=== PATIENT | female | born 1940 | race Caucasian/White ===

== ENCOUNTER 2017-04-12 22:49 | Inpatient (IN) | payer OTHER ==
--- NOTE | 2017-04-12 23:14 | PDOC ---
Attending Attestation - Resident Resident Name: Rg Grubbs - ED Attending Attestation I have performed the following: I have examined & evaluated the patient, The case was reviewed & discussed with the resident, I agree w/resident's findings & plan, Exceptions are as noted - HPI HPI: 04/13/17 00:23 76 yo f presenting to the ER with a complaint of abdominal pain and nausea No fevers or chills - Physicial Exam PE: 04/13/17 00:23 On examination: Epigastric tenderness to palpation No involuntary guarding No rebound No lower abdominal tenderness to palpation - Medical Decision Making 76 yo F presenting to the ER with upper abdominal pain and nausea DD includes gastritis, gastroenteritis, Pancreatitis, retained stone Will do Labs CT IV hydration Pain management Anti emetics 04/13/17 00:23 Laboratory Tests 04/12/17 23:15 Urine Blood Negative Urine Nitrite Negative Ur Leukocyte Esterase 1+ H Urine RBC <1 Urine WBC 4 Ur Epithelial Cells Rare 04/13/17 00:24 04/13/17 01:16 Laboratory Tests 04/12/17 04/12/17 04/12/17 00:29 23:50 23:50 WBC 10.1 H Hgb 10.6 L Hct 33.3 Plt Count 293 Sodium 139 Potassium 4.7 Chloride 103 Carbon Dioxide 27 Anion Gap 9 BUN 34 H Creatinine 1.1 H Random Glucose 129 H Creatine Kinase 66 Troponin I < 0.02 04/13/17 03:21 Received call from imaging transcription coordinator Pt 1) SBO 2) Gastric inflammation 3) Low attenuation near spleen, ? splenic infarct vs fluid Admit to Dr Perez Add on PT/PTT and Type and Screen Pt refused NG Tube Heart Score/ECG Review #1 ECG reviewed & interpreted by me at: 23:33 General ECG Interpretation: Sinus Rhythm, Normal Rate, Normal Intervals, No acute ischemic changes
[2017-04-12] MEDS ORDERED: MAG HYDROX/AL HYDROX/SIMETH 355 ML ORAL.SUSP PO ONE (23:15)
[2017-04-12] MEDS ORDERED: ONDANSETRON 4 MG/2 ML VIAL IVPUSH ONE (23:15)
[2017-04-12] MEDS ORDERED: morphine CARPU-JECT 2 MG/1 ML DISP.SYRIN IVPUSH ONE (23:15)
[2017-04-12] MEDS ORDERED: morphine CARPU-JECT 2 MG/1 ML DISP.SYRIN ONE (23:26)
[2017-04-12 23:27] LABS: URINE APPEARANCE CLEAR; URINE BILIRUBIN NEGATIVE (NEGATIVE); URINE BLOOD NEGATIVE (NEGATIVE); URINE COLOR STRAW; URINE GLUCOSE (UA) 3+ (NEGATIVE); URINE KETONE NEGATIVE (NEGATIVE); URINE NITRITE NEGATIVE (NEGATIVE); URINE PROTEIN NEGATIVE (NEGATIVE); URINE UROBILINOGEN NEGATIVE mg/dL (0.2-1.0)
[2017-04-12] MEDS ORDERED: MAG HYDROX/AL HYDROX/SIMETH 30 ML UNIT-DOSE CUP ONE (23:27)
[2017-04-12] MEDS ORDERED: ONDANSETRON 4 MG/2 ML VIAL ONE (23:27)
--- NOTE | 2017-04-12 23:30 | PDOC ---
History of Present Illness - General Chief Complaint: Pain Stated Complaint: ABDOMINAL PAIN Time Seen by Provider: 04/12/17 22:52 History Source: Patient Exam Limitations: No Limitations - History of Present Illness Initial Comments: 04/12/17 23:19 Patient is a 76F with history of CHF, CT s/p stenting, and cholecystectomy here today complaining of epigastric abdominal pain radiating to the back for the past three hours. Patient is unsure of any inciting event and has never had pain like this before. She denies nausea, vomiting, fevers and chills. She denies chest pain and shortness of breath. Last bowel movement was 6 hours ago. She denies lower abdominal pain, pain with urination and urinary frequency. Past History - Past Medical History Allergies/Adverse Reactions: Allergies Allergy/AdvReac Type Severity Reaction Status Date / Time No Known Allergies Allergy Verified 04/12/17 23:21 Home Medications: Ambulatory Orders Aspirin [ASA -] 81 mg PO DAILY 04/12/17 Canagliflozin [Invokana] 300 mg PO DAILY 04/12/17 Docusate Sodium [Colace -] 100 mg PO BID 04/12/17 Esomeprazole Magnesium [Nexium 24Hr] 40 mg PO DAILY 04/12/17 Ferrous Sulfate [Feosol] 325 mg PO DAILY 04/12/17 Glipizide [Glucotrol -] 10 mg PO BID 04/12/17 Metformin HCl [Glucophage] 1,000 mg PO BID 04/12/17 Metoclopramide HCl [Reglan -] 10 mg PO DAILY 04/12/17 Metoprolol Succinate [Toprol Xl -] 25 mg PO DAILY 04/12/17 Nateglinide [Starlix (Nf)] 120 mg PO TID 04/12/17 Olmesartan Medoxomil [Benicar (Nf)] 20 mg PO DAILY 04/12/17 Pioglitazone HCl [Actos] 15 mg PO DAILY 04/12/17 Simvastatin [Zocor -] 40 mg PO HS 04/12/17 Solifenacin Succinate [Vesicare -] 10 mg PO DAILY 04/12/17 Review of Systems - Review of Systems Comments:: 04/12/17 23:30 GENERAL/CONSTITUTIONAL: No fever or chills. HEAD, EYES, EARS, NOSE AND THROAT: No change in vision. No sore throat. CARDIOVASCULAR: No chest pain or shortness of breath RESPIRATORY: No cough, wheezing, or hemoptysis. GASTROINTESTINAL: No nausea, vomiting, diarrhea or constipation. GENITOURINARY: No dysuria, frequency, or change in urination. SKIN: No rash NEUROLOGIC: No headache, loss of consciousness, or change in strength/sensation. HEMATOLOGIC/LYMPHATIC: No anemia, easy bleeding, or history of blood clots. ALLERGIC/IMMUNOLOGIC: No hives or skin allergy. *Physical Exam - Physical Exam Comments: 04/12/17 23:31 GENERAL: Awake, alert, and fully oriented, in no acute distress HEAD: No signs of trauma, normocephalic, atraumatic EYES: PERRLA, EOMI, sclera anicteric, conjunctiva clear ENT: Auricles normal inspection, hearing grossly normal, nares patent, oropharynx clear without exudates. Moist mucosa LUNGS: No distress, speaks full sentences, clear to auscultation bilaterally HEART: Regular rate and rhythm, normal S1 and S2, no murmurs, rubs or gallops, peripheral pulses normal and equal bilaterally. ABDOMEN: Epigastric tenderness. No guarding, no rebound. No masses EXTREMITIES: Normal inspection, Normal range of motion, no edema. No clubbing or cyanosis. NEUROLOGICAL: Cranial nerves II through XII grossly intact. Normal speech, no focal sensorimotor deficits SKIN: Warm, Dry, normal turgor, no rashes or lesions noted. ED Treatment Course - LABORATORY CBC & Chemistry Diagram: 04/12/17 23:50 04/12/17 23:50 Medical Decision Making - Medical Decision Making 04/12/17 23:32 Patient is a 76F with history of CHF, CT s/p stenting about 10 years ago, DM, and cholecystectomy here today complaining of upper epigastric abdominal pain radiating to the back. Vital signs stable. Differential diagnosis includes, but is not limited to: pancreatitis, gastritis, and ACS. Will evaluate with abdominal lab workup, trop, ekg, and ct abdomen. Treated with maalox, zofran and 2mg morphine. 04/13/17 01:53 Laboratory Tests 04/12/17 04/12/17 04/12/17 00:29 23:15 23:50 WBC 10.1 H Hgb 10.6 L Hct 33.3 Plt Count 293 Sodium Potassium Chloride Carbon Dioxide Anion Gap BUN Creatinine Calcium Total Bilirubin AST ALT Alkaline Phosphatase Creatine Kinase 66 Troponin I < 0.02 Total Protein Albumin Lipase Ur Leukocyte Esterase 1+ H Urine RBC <1 Urine WBC 4 04/12/17 23:50 WBC Hgb Hct Plt Count Sodium 139 Potassium 4.7 Chloride 103 Carbon Dioxide 27 Anion Gap 9 BUN 34 H Creatinine 1.1 H Calcium 9.4 Total Bilirubin 0.4 AST 16 ALT 18 Alkaline Phosphatase 48 Creatine Kinase Troponin I Total Protein 7.4 Albumin 4.2 Lipase 96 Ur Leukocyte Esterase Urine RBC Urine WBC UA neg, lipase neg, trop neg, Cr 1.1, liver enzymes normal, no gap EKG shows normal sinus rhythm, normal rate, normal axis, no ST elevations. No significant t-wave inversions. 04/13/17 03:28 CT Abdomen - Mid small bowel obstruction secondary to inflamed small bowel loop of uncertain cause, although a mass is not completely excluded. - Possible antral gastritis can be further evaluated with endoscopy. - Low attenuation adjacent to the spleen could represent a small amount of pericapsular fluid, but a small splenic infarct is not excluded. - Prominent biliary duct dilation status post cholecystectomy may be secondary to postoperative biliary stricture and may be followed up with MRCP/ERCP as clinically warranted 04/13/17 03:[address] Perez, accepted admission. Requested consult to Dr Christine. *DC/Admit/Observation/Transfer Diagnosis at time of Disposition: Small bowel obstruction - Discharge Dispostion Condition at time of disposition: Fair Admit: Yes
[2017-04-12 23:31] LABS: URINE LEUK ESTERASE 1+ (NEGATIVE)
[2017-04-12 23:37] LABS: URINE RBC <1 /hpf (0-3); URINE WBC 4 /hpf (3-5)
[2017-04-12 23:59] VITALS: BMI 30.2
[2017-04-13 00:36] LABS: BASOPHIL 0.4 % (0-2.0); EOSINOPHIL 0.7 % (0-4.5); MCH 26.3 pg (25.7-33.7); MCHC 31.7 g/dl (32.0-36.0); MEAN PLT VOLUME 8.6 fl (7.5-11.1); NEUTROPHILS 82.4 % (42.8-82.8); PLATELET COUNT 293 K/MM3 (134-434); WHITE BLOOD COUNT 10.1 K/mm3 (4.0-10.0)
[2017-04-13 01:02] LABS: CPK 66 IU/L (26-192); TROPONIN I < 0.02 ng/ml (0.00-0.05)
[2017-04-13 01:02] LABS: ALBUMIN 4.2 g/dl (3.4-5.0); ALK PHOS 48 U/L (45-117); ANION GAP 9 (8-16); BILIRUBIN,TOTAL 0.4 mg/dL (0.2-1.0); CALCIUM 9.4 mg/dL (8.5-10.1); CO2 27 mmol/L (21-32); CREATININE 1.1 mg/dL (0.55-1.02); GLUCOSE,RANDOM 129 mg/dL (74-106); SGOT/AST 16 U/L (15-37); SGPT/ALT 18 U/L (12-78); TOT PROT 7.4 g/dl (6.4-8.2)
[2017-04-13 02:36] LABS: ANISOCYTOSIS 3+; MACROCYTOSIS 2+; MICROCYTOSIS 1+; PLATELET ESTIMATE ADEQUATE (NORMAL)
[2017-04-13] MEDS ORDERED: SODIUM CHLORIDE 500 ML IV STA (03:44)
[2017-04-13] MEDS ORDERED: morphine CARPU-JECT 2 MG/1 ML DISP.SYRIN IVPUSH ONE (03:58)
[2017-04-13] MEDS ORDERED: morphine CARPU-JECT 2 MG/1 ML DISP.SYRIN ONE (04:00)
[2017-04-13 04:28] LABS: INR 1.05 (0.82-1.09); PROTHROMBIN TIME (PATIENT) 11.6 SEC (9.98-11.88)
[2017-04-13] MEDS ORDERED: ONDANSETRON 4 MG/2 ML VIAL IVPB PRN (08:44)
[2017-04-13] MEDS ORDERED: morphine CARPU-JECT 2 MG/1 ML DISP.SYRIN IVPUSH PRN (08:44)
[2017-04-13] MEDS ORDERED: SODIUM CHLORIDE 1,000 ML IV SCH ×2 (08:45→11:43)
[2017-04-13 10:14] LABS: MCH 25.8 pg (25.7-33.7); MCHC 31.2 g/dl (32.0-36.0); MEAN CELL VOLUME 82.6 fl (80-96); MEAN PLT VOLUME 7.9 fl (7.5-11.1); PLATELET COUNT 290 K/MM3 (134-434); WHITE BLOOD COUNT 9.9 K/mm3 (4.0-10.0)
[2017-04-13 10:44] LABS: ALBUMIN 3.7 g/dl (3.4-5.0); ANION GAP 8 (8-16); BILIRUBIN,TOTAL 0.4 mg/dL (0.2-1.0); CALCIUM 9.2 mg/dL (8.5-10.1); CO2 28 mmol/L (21-32); CREATININE 1.1 mg/dL (0.55-1.02); GLUCOSE,RANDOM 168 mg/dL (74-106); SGOT/AST 14 U/L (15-37); SGPT/ALT 18 U/L (12-78); TOT PROT 6.7 g/dl (6.4-8.2)
[2017-04-13 10:45] LABS: ALK PHOS 48 U/L (45-117)
--- NOTE | 2017-04-13 11:37 | HP ---
Admitting History and Physical - Primary Care Physician PCP: Duc Perez - Admission Chief Complaint: epigasatric pain History of Present Illness: Pt developed epigastric pain ( no specific trigger) yesterday early afternoon, came to ER later, found to have SBO and was admitted. Pt w/o N, V yesterday; last BM was yesterday morning; pt w/o SOB, CP, palp, dizziness associated with epigastric pain. History Source: Patient Limitations to Obtaining History: No Limitations - Past Medical History Cardiovascular: Yes: CAD Pulmonary: Yes: COPD Gastrointestinal: Yes: Hiatal Hernia ...: No Endocrine: Yes: Diabetes Mellitus - Past Surgical History Past Surgical History: Yes: Cholecystectomy - Smoking History Smoking history: Never smoked Have you smoked in the past 12 months: No - Alcohol/Substance Use Hx Alcohol Use: No Home Medications - Allergies Allergies/Adverse Reactions: Allergies Allergy/AdvReac Type Severity Reaction Status Date / Time No Known Allergies Allergy Verified 04/12/17 23:21 - Home Medications Home Medications: Ambulatory Orders Aspirin [ASA -] 81 mg PO DAILY 04/12/17 Canagliflozin [Invokana] 300 mg PO DAILY 04/12/17 Docusate Sodium [Colace -] 100 mg PO BID 04/12/17 Esomeprazole Magnesium [Nexium 24Hr] 40 mg PO DAILY 04/12/17 Ferrous Sulfate [Feosol] 325 mg PO DAILY 04/12/17 Glipizide [Glucotrol -] 10 mg PO BID 04/12/17 Metformin HCl [Glucophage] 1,000 mg PO BID 04/12/17 Metoclopramide HCl [Reglan -] 10 mg PO DAILY 04/12/17 Metoprolol Succinate [Toprol Xl -] 25 mg PO DAILY 04/12/17 Nateglinide [Starlix (Nf)] 120 mg PO TID 04/12/17 Olmesartan Medoxomil [Benicar (Nf)] 20 mg PO DAILY 04/12/17 Pioglitazone HCl [Actos] 15 mg PO DAILY 04/12/17 Simvastatin [Zocor -] 40 mg PO HS 04/12/17 Solifenacin Succinate [Vesicare -] 10 mg PO DAILY 04/12/17 Review of Systems - Review of Systems Constitutional: denies: Chills, Fever Eyes: denies: Blind Spots, Blurred Vision, Double Vision HENT: denies: Difficult Swallowing, Ear Discharge, Nasal Congestion, Throat Pain Neck: denies: Pain on Movement, Stiffness Cardiovascular: denies: Chest Pain, Edema, Palpitations Respiratory: denies: Cough, SOB, Wheezing Gastrointestinal: denies: Constipation, Diarrhea, Nausea, Vomiting Genitourinary: denies: Burning, Discharge, Dysuria Musculoskeletal: denies: Back Pain, Extremity Pain, Muscle Pain Integumentary: denies: Bruising, Rash Neurological: denies: Change in LOC, Change in Speech, Confusion, Numbness, Parasthesia Endocrine: denies: Excessive Sweating, Intolerance to Cold Hematology/Lymphatic: denies: Easily Bruised, Excessive Bleeding Psychiatric: denies: Anxiety, Depression Physical Examination Vital Signs: Vital Signs Temperature 98.8 F 04/13/17 10:18 Pulse Rate 108 H 04/13/17 10:18 Respiratory Rate 20 04/13/17 10:18 Blood Pressure 118/54 04/13/17 10:18 O2 Sat by Pulse Oximetry (%) 95 04/13/17 05:33 Constitutional: Yes: No Distress, Calm Eyes: Yes: Conjunctiva Clear, EOM Intact HENT: No: Epistaxis, Pharyngeal Erythema, Rhinnorhea Neck: Yes: Trachea Midline. No: Lymphadenopathy Cardiovascular: Yes: Regular Rate and Rhythm, S1, S2 Respiratory: Yes: Regular, Rhonchi (scattered), Other (BS, at baseline) ...Rectal Exam: Yes: Deferred Renal/: No: CVA Tenderness - Left, CVA Tenderness - Right Breast(s): Yes: Other (deferred) Musculoskeletal: No: Back Pain, Joint Stiffness, Joint Swelling Edema: No Integumentary: No: Erythema, Rash Neurological: Yes: Alert, Oriented, Other (symmeteric motor and sensory in UE/ LE/ face) Psychiatric: Yes: Alert, Oriented Labs: CBC, BMP 04/13/17 10:05 04/13/17 10:05 Imaging - Results Cat Scan: Report Reviewed Problem List - Problems (1) SBO (small bowel obstruction) Code(s): K56.69 - OTHER INTESTINAL OBSTRUCTION (2) COPD (chronic obstructive pulmonary disease) Code(s): J44.9 - CHRONIC OBSTRUCTIVE PULMONARY DISEASE, UNSPECIFIED (3) CAD (coronary artery disease) Code(s): I25.10 - ATHSCL HEART DISEASE OF [place] CORONARY ARTERY W/O ANG PCTRS (4) Diabetes mellitus Code(s): E11.9 - TYPE 2 DIABETES MELLITUS WITHOUT COMPLICATIONS (5) Hiatal hernia Code(s): K44.9 - DIAPHRAGMATIC HERNIA WITHOUT OBSTRUCTION OR GANGRENE Assessment/Plan elevated lactic acid NPO except meds no oral DM meds SS wiith coverage SX, GI , Cardio consult. GI, DVT proph AM labs
[2017-04-13] MEDS ORDERED: SODIUM CHLORIDE 100 ML IVPB ONE (12:25)
[2017-04-13] MEDS ORDERED: PANTOPRAZOLE SODIUM 40 MG VIAL ONE (12:25)
[2017-04-13] MEDS: INSULIN SLIDING SCALE (NOVOLOG) 1 VIAL SQ SCH ×3 (12:30→21:47)
[2017-04-13] MEDS: METOPROLOL SUCCINATE 25 MG TAB.SR.24H (FP) PO SCH (12:30)
[2017-04-13] MEDS: ASPIRIN 81 MG CHEWABLE TABLETS PO SCH (12:30)
[2017-04-13] MEDS: PANTOPRAZOLE SODIUM 40 MG in SODIUM CHLORIDE 100 ML IVPB SCH (12:32)
--- NOTE | 2017-04-13 13:21 | EKG ---
Test Reason : Blood Pressure : / mmHG Vent. Rate : 086 BPM Atrial Rate : 086 BPM P-R Int : 186 ms QRS Dur : 072 ms QT Int : 368 ms P-R-T Axes : 057 021 054 degrees QTc Int : 440 ms NORMAL SINUS RHYTHM NORMAL ECG WHEN COMPARED WITH ECG OF 22-JAN-2011 12:15, NO SIGNIFICANT CHANGE WAS FOUND CLINICAL CORRELATION IS RECOMMENDED Confirmed by NEIL KRAMER MD ([id number]) on 04/13/2017 1:21:06 PM Referred By: Confirmed By:NEIL KRAMER MD
--- NOTE | 2017-04-13 13:38 | CON.GI ---
Consult Consult Specialty:: Gastroenterology Referred by:: Dr. Perez Reason for Consultation:: Abdominal pain - History of Present Illness Chief Complaint: Epigastric pain radiating into her back. History of Present Illness: 76F developed sharp constant epigastric pain after eating lunch yesterday that radiated bilaterally into her back. She denies vomiting. She had a BM yesterday morning but not since then. She has chronic constipation. CT reveals an SBO. She is s/p combined cholecystectomy /appendectomy ( but CT identifies a normal appendix) and a BTL ( when she was told the appendix was absent). She had a colonoscopy at [facility] with Dr Feng and later in [place] and believes both were normal but both were greater than 10 years ago. Also had a remote EGD at [facility] which she believes was normal. She is on Nexium chronically however for a hiatal hernia. Her lactic acid level was 3 in the ER. Her pain has resolved. 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 (year[place] age 22 History of Recent Travel: No Home Medications - Allergies Allergies/Adverse Reactions: Allergies Allergy/AdvReac Type Severity Reaction Status Date / Time No Known Allergies Allergy Verified 04/12/17 23:21 - Home Medications Home Medications: Ambulatory Orders Aspirin [ASA -] 81 mg PO DAILY 04/12/17 Canagliflozin [Invokana] 300 mg PO DAILY 04/12/17 Docusate Sodium [Colace -] 100 mg PO BID 04/12/17 Esomeprazole Magnesium [Nexium 24Hr] 40 mg PO DAILY 04/12/17 Ferrous Sulfate [Feosol] 325 mg PO DAILY 04/12/17 Glipizide [Glucotrol -] 10 mg PO BID 04/12/17 Metformin HCl [Glucophage] 1,000 mg PO BID 04/12/17 Metoclopramide HCl [Reglan -] 10 mg PO DAILY 04/12/17 Metoprolol Succinate [Toprol Xl -] 25 mg PO DAILY 04/12/17 Nateglinide [Starlix (Nf)] 120 mg PO TID 04/12/17 Olmesartan Medoxomil [Benicar (Nf)] 20 mg PO DAILY 04/12/17 Pioglitazone HCl [Actos] 15 mg PO DAILY 04/12/17 Simvastatin [Zocor -] 40 mg PO HS 04/12/17 Solifenacin Succinate [Vesicare -] 10 mg PO DAILY 04/12/17 Family Disease History - Family Disease History Family Disease History: Diabetes: Mother ( unknown cause), Sister, Son (CAD with stenting), Heart Disease: Son, CA: Daughter ( lung cancer), Other: Father ( in his 40s of bleeding ulcer) Review of Systems - Review of Systems Constitutional: reports: No Symptoms Eyes: reports: No Symptoms HENT: reports: No Symptoms Neck: reports: No Symptoms Cardiovascular: reports: No Symptoms Respiratory: reports: No Symptoms Gastrointestinal: reports: Abdominal Pain, Constipation Musculoskeletal: reports: Joint Pain Neurological: reports: No Symptoms Physical Exam-GI Vital Signs: Vital Signs Temperature 98.8 F 04/13/17 10:18 Pulse Rate 108 H 04/13/17 10:18 Respiratory Rate 20 04/13/17 10:18 Blood Pressure 118/54 04/13/17 10:18 O2 Sat by Pulse Oximetry (%) 95 04/13/17 05:33 CBC,CMP WBC 9.9 K/mm3 (4.0-10.0) 04/13/17 10:05 RBC 4.24 M/mm3 (3.60-5.2) 04/13/17 10:05 Hgb 10.9 GM/dL (10.7-15.3) 04/13/17 10:05 Hct 35.0 % (32.4-45.2) 04/13/17 10:05 MCV 82.6 fl (80-96) 04/13/17 10:05 MCH 25.8 pg (25.7-33.7) 04/13/17 10:05 MCHC 31.2 g/dl (32.0-36.0) L 04/13/17 10:05 RDW 23.0 % (11.6-15.6) H 04/13/17 10:05 Plt Count 290 K/MM3 (134-434) 04/13/17 10:05 MPV 7.9 fl (7.5-11.1) 04/13/17 10:05 Neutrophils % 82.4 % (42.8-82.8) 04/12/17 23:50 Lymphocytes % 10.3 % (8-40) 04/12/17 23:50 Monocytes % 6.2 % (3.8-10.2) 04/12/17 23:50 Eosinophils % 0.7 % (0-4.5) 04/12/17 23:50 Basophils % 0.4 % (0-2.0) 04/12/17 23:50 Platelet Estimate Adequate (NORMAL) 04/12/17 23:50 Platelet Comment Few large plts 04/12/17 23:50 Anisocytosis 3+ 04/12/17 23:50 Microcytosis 1+ 04/12/17 23:50 Macrocytosis 2+ 04/12/17 23:50 Sodium 139 mmol/L (136-145) 04/13/17 10:05 Potassium 4.9 mmol/L (3.5-5.1) 04/13/17 10:05 Chloride 103 mmol/L (98-107) 04/13/17 10:05 Carbon Dioxide 28 mmol/L (21-32) 04/13/17 10:05 Anion Gap 8 (8-16) 04/13/17 10:05 BUN 28 mg/dL (7-18) H 04/13/17 10:05 Creatinine 1.1 mg/dL (0.55-1.02) H 04/13/17 10:05 Creat Clearance w eGFR 48.29 (>60) 04/13/17 10:05 POC Glucometer 143 UNITS (()) 04/13/17 12:28 Random Glucose 168 mg/dL (74-106) H D 04/13/17 10:05 Lactic Acid 0.9 mmol/L (0.4-2.0) 04/13/17 10:05 Calcium 9.2 mg/dL (8.5-10.1) 04/13/17 10:05 Total Bilirubin 0.4 mg/dL (0.2-1.0) 04/13/17 10:05 AST 14 U/L (15-37) L 04/13/17 10:05 ALT 18 U/L (12-78) 04/13/17 10:05 Alkaline Phosphatase 48 U/L (45-117) 04/13/17 10:05 Creatine Kinase 66 IU/L (26-192) 04/12/17 00:29 Troponin I < 0.02 ng/ml (0.00-0.05) 04/12/17 00:29 Total Protein 6.7 g/dl (6.4-8.2) 04/13/17 10:05 Albumin 3.7 g/dl (3.4-5.0) 04/13/17 10:05 Lipase 96 U/L (73-393) 04/12/17 23:50 Current Medications Generic Name Dose Route Start Last Admin Trade Name Gonzaloq PRN Reason Stop Dose Admin Aspirin 81 mg 04/13/17 10:00 04/13/17 12:30 Asa - PO 81 mg DAILY STEPH Administration Heparin Sodium (Porcine) 5,000 unit 04/13/17 22:00 Heparin - SQ BID STEPH Pantoprazole Sodium 40 mg/ 100 mls @ 200 mls/hr 04/13/17 12:30 04/13/17 12:32 Sodium Chloride IVPB 200 mls/hr DAILY STEPH Administration Sodium Chloride 1,000 mls @ 100 mls/hr 04/13/17 11:43 04/13/17 12:30 Normal Saline - IV 100 mls/hr ASDIR STEPH Administration Insulin Aspart 1 vial 04/13/17 11:00 04/13/17 12:30 Novolog Vial Sliding Scale - SQ Not Given ACHS [facility] Protocol Metoprolol Succinate 25 mg 04/13/17 10:00 04/13/17 12:30 Toprol Xl - PO 25 mg DAILY STEPH Administration Morphine Sulfate 2 mg 04/13/17 08:44 Morphine Injection - IVPUSH Q6H PRN PAIN Ondansetron HCl 4 mg 04/13/17 08:44 Zofran Injection IVPB Q8H PRN NAUSEA Laboratory Tests 04/12/17 04/13/17 04/13/17 23:50 03:45 10:05 WBC 10.1 H 9.9 Hgb 10.9 Lactic Acid 3.0 H* Total Bilirubin AST ALT Alkaline Phosphatase Albumin 04/13/17 10:05 WBC Hgb Lactic Acid Total Bilirubin 0.4 AST 14 L ALT 18 Alkaline Phosphatase 48 Albumin 3.7 Constitutional: Yes: No Distress Eyes: Yes: Conjunctiva Clear HENT: Yes: Normocephalic Neck: Yes: Supple Cardiovascular: Yes: Regular Rate and Rhythm Respiratory: Yes: CTA Bilaterally Gastrointestinal Inspection: Yes: Scars (healed oblique RUQ and laparoscopic incisions) ...Auscultate: Yes: Hyperactive Bowel Sounds ...Palpate: Yes: Soft, Other (nontender) ...Percussion: Yes: Tympanitic ...Rectal Exam: Yes: Guaiac Negative, Sphincter Tone Normal, Other (no masses) Extremities: Yes: Other (long RUE surgical scar) Labs: CBC, BMP 04/13/17 10:05 04/13/17 10:05 INR, PTT INR 1.05 (0.82-1.09) 04/13/17 03:45 Imaging - Results Cat Scan: Image Reviewed (reveals small bowel obstruction, dilated CBD and hepatic ducts ( 1.8-1.9cm) , subcapsular splenic collection, ? 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 It may be resolving as her pain has resolved and no vomiting has ensued. I will order an FUA. If pain or vomiting ensue will need NG tube. Surgical consultation is pending. Her lactic acidosis raises the possibility of mesenteric ischemia but her pain resolution argues against this. I will order a repeat lactic acid level and if elevated an ABG as the narcotics could be masking symptoms. Should be kept NPO until seen by the surgeon. Will also get an MRCP to evaluate her bile duct dilation. Her LFTs argue against an obstruction. 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 Her family was present for the discussion.
--- NOTE | 2017-04-13 18:51 | CONS ---
DATE OF CONSULTATION: 04/13/2017 TIME OF CONSULTATION: 5:06 p.m. CONSULTATION REQUESTED BY: Duc Perez MD CHIEF COMPLAINT: 1. Epigastric and paraumbilical pain radiating to the back. 2. Mild nausea. HISTORY OF PRESENT ILLNESS: A 76-year-old [place] female with history of hypertension, zmo-zjabild-cufffacdi diabetes mellitus, coronary artery disease, angina pectoris, hypercholesterolemia, status post cerebrovascular accident without residual sequelae, history of hypercholesterolemia, bronchial asthma, COPD, and history of glaucoma. Patient was admitted with history of sudden onset of paraumbilical pain radiating to the epigastric area. Pain was severe, non-colicky, and radiated to the back. There was no history of diarrhea, melena, or hematemesis. She did notice mild chills but there was no history of fever, and as the pain persisted, she decided to come to the hospital. Patient denies having any recent chest pain or discomfort, either at rest or with exertion. History of exertional dyspnea, especially walking on an incline, and she avoids stairs. No history of paroxysmal nocturnal dyspnea or orthopnea. No history of recent cough or expectoration. No history of recent exacerbation of asthma. No history of palpitations, lightheadedness, dizziness, presyncope, or syncope reported. No history of pedal edema. PAST HISTORY: 1. As mentioned in the history of present illness. 2. History of hiatus hernia. SURGICAL HISTORY: 1. History of surgery on the left breast for a fistula. 2. Status post cholecystectomy. 3. Status post bilateral cataract extraction. SOCIAL HISTORY: History of cigarette smoking starting at age 15 and stopping 6 years ago. Used to smoke 2 to 3 packets of cigarettes per day. No history of alcohol usage. She is , had 2 sons and 3 daughters. One of the sons at age 28 while undergoing coronary artery bypass surgery. One of the daughters in her early 40s due to carcinoma of the lung; she was a smoker. Her other son is a diabetic and has had coronary artery bypass grafting. The other daughter is a diabetic. FAMILY HISTORY: Father in his late 40s because of bleeding peptic ulcer disease. Mother in her 60s; she was a diabetic and had coronary artery disease. Has 1 sister, who is diabetic. ALLERGIES: None reported. MEDICATIONS PRIOR TO ADMISSION DOCUMENTED IN CHART: 1. Toprol XL 25 mg p.o. daily. 2. Aspirin 81 mg p.o. daily. 3. Invokana 300 mg p.o. before breakfast. 4. Nexium 40 mg p.o. daily. 5. Glipizide 10 mg p.o. b.i.d. before meals. 6. Metformin 1000 mg p.o. b.i.d. before meals. 7. Reglan 10 mg p.o. daily. 8. Starlix 120 mg p.o. t.i.d. before meals. 9. Benicar 20 mg p.o. daily. 10. Actos 15 mg p.o. daily. 11. Simvastatin 40 mg p.o. daily. 12. Travatan ophthalmic solution 1 drop in each eye daily. 13. Lumigan 1 drop in each eye daily. 14. Simbrinza 1 drop in each eye t.i.d. REVIEW OF SYSTEMS: Constitutional: No history of fever. History of mild chills. No history of night sweats. No history of unintentional weight loss. HEENT: No history of recent headaches, diplopia, or blurred vision reported. No history of epistaxis, hoarseness, tinnitus or deafness. Cardiovascular: See history of present illness. No history of recent chest pain or discomfort. Respiratory: See history of present illness. Denies any recent cough, expectoration, or wheezing. No history of hemoptysis. Denies having tuberculosis. Gastrointestinal: See history of present illness. No history of change in bowel habits, vomiting, melena, or hematemesis. Neurological: No history of lightheadedness, dizziness, presyncope or syncope. No history of seizures or focal weakness. See history of present illness. Endocrine: See history of present illness. No history of intolerance to cold or warm weather. Musculoskeletal: History of arthralgias, status post left knee replacement. No history of myalgias reported. Urinary: History of urgency. No history of hematuria or urinary tract infection. Hematological: No history of bleeding, anemia, or ecchymosis. Lymphatics: No history of lymphadenopathy. EXAMINATION: General: A 76-year-old female who is in no acute distress. No pallor, cyanosis, clubbing, or jaundice. Vital Signs: Weight 165 pounds. Blood pressure 110/57 mmHg. Pulse 97 beats per minute and regular. Temperature 98.4 degrees Fahrenheit. Neck: Supple. No jugular venous distention. Carotids were 2+. Upstrokes were normal. There was right carotid bruit heard and there was also a slight left carotid bruit. No thyromegaly was present. No submandibular or supraclavicular nodes were felt. Heart: PMI within the 5th intercostal space. No heaves or thrills. S1 and S2 were normal. Ejection systolic murmur grade 2/6 was heard at the 2nd right intercostal space, and again early systole murmur was also heard along the left sternal border. No diastolic murmur or gallops were heard. Lungs: Clear on auscultation. Chest: Normal AP diameter. Expansion was symmetrical. Abdomen: Soft, nontender. No rebound tenderness was elicited. No hepatosplenomegaly or palpable masses were felt. Bowel sounds were heard. No bruits were present. Extremities: No calf tenderness or dependent edema. There is a surgical scar over the left knee. Femoral pulses were 2+. Dorsalis pedis and posterior tibial pulses were weak. LABORATORY DATA: April 12, 2017, CBC: WBC count was 10,100, hemoglobin was 10.6 g, platelet count was 293,000, platelets reported to be large. There was both anisocytosis, microcytosis, and macrocytosis. Repeat CBC on April 13: WBC count 9900, hemoglobin 10.9 g. Differential was not done. Chemistry, April 13, 2017: Sodium 139, potassium 4.9, chloride 103, CO2 28 mmol per liter. BUN was 28, creatinine was 1.1 mg/dL. Glucose was 151, 146, and 43. Lactic acid was 3.0; the repeat was 0.9. Total bilirubin was 0.9, AST was 14, ALT was 18, alkaline phosphatase of 48. CK was 66, troponin was less than 0.02. Lipase was 96. ECG revealed normal sinus rhythm, tracing was within normal limits. When compared with ECG of 22 January 2011, no significant changes were seen. CT scan of the abdomen and pelvis: There are mild COPD changes in the included portion of the lower lungs with mild atelectatic changes in the right middle lobe, medially as well as in the right lower lobe laterally. IMPRESSION: 1. Partially-distended stomach, limiting its evaluation with suggestion of thickening of the gastric body wall, for which further evaluation is recommended. 2. Status post cholecystectomy with moderate to mild dilatation of the intrahepatic bile ducts and dilatation of the common hepatic and common bile duct, measuring 1.9 cm down to its intrapancreatic portion. Further evaluation with MRCP is needed. 3. Likely small subcapsular fluid seen along the superior/medial margin of the spleen. Cannot rule out a small infarct. 4. Mild to moderate right renal hydronephrosis and bilateral extrarenal pelvis. 5. Mild small-bowel obstruction, likely on the basis of a short segment of thickened small bowel loop with fecalization seen in the mid to lower abdomen. Rule out enteritis or infiltrative process. Ischemic bowel disease is less likely. Normal enhancement of the superior mesenteric artery and vein. X-ray chest is not available. IMPRESSION: 1. Abdominal pain, etiology to be determined. a. Dilated common and intrahepatic bile duct. Possibility of gallstones needs to be excluded. b. Possibility of ductal carcinoma needs to be excluded. 2. Hypertension, hypertensive cardiovascular disease, currently normotensive. 3. Coronary artery disease, angina pectoris currently stable. 4. Hypercholesterolemia. 5. History of bronchial asthma. 6. Glaucoma. 7. Anemia, etiology to be determined. Possibly related to thalassemia minor. 8. Carotid bruits. 9. Status post cerebrovascular accident without residual sequelae. 10. Kip-mdcryht-cvphafhsu diabetes mellitus. 11. Probable neurogenic bladder. 12. History of hydronephrosis. RECOMMENDATIONS: 1. Carotid ultrasound. 2. Continue current medications. 3. Resume simvastatin. 4. Lipid profile. 5. Followup electrocardiogram. 6. Evaluation of anemia. PROGNOSIS: Guarded. Thank you for your referral. Yours sincerely, NEIL KRAMER M.D. [id number]
[2017-04-13] MEDS: HEPARIN NA (PORCINE) 5,000 UNITS/ML 1ML VIAL SQ SCH (21:47)
[2017-04-14] MEDS: SODIUM CHLORIDE 1,000 ML IV SCH ×2 (06:37→06:42)
[2017-04-14] MEDS: INSULIN SLIDING SCALE (NOVOLOG) 1 VIAL SQ SCH ×4 (06:44→22:42)
[2017-04-14 07:17] LABS: FIBROSURE ASH COMMENT SEE FILE COPY
[2017-04-14 07:23] LABS: MCH 26.2 pg (25.7-33.7); MCHC 31.2 g/dl (32.0-36.0); MEAN CELL VOLUME 83.7 fl (80-96); MEAN PLT VOLUME 8.2 fl (7.5-11.1); PLATELET COUNT 282 K/MM3 (134-434); RDW 22.7 % (11.6-15.6)
[2017-04-14 07:49] LABS: C-REACTIVE PROTEIN 7.8 MG/DL (0.00-0.3)
[2017-04-14 08:00] LABS: ALBUMIN 3.3 g/dl (3.4-5.0); ALK PHOS 45 U/L (45-117); ANION GAP 8 (8-16); BILIRUBIN,TOTAL 0.4 mg/dL (0.2-1.0); CALCIUM 8.7 mg/dL (8.5-10.1); CO2 25 mmol/L (21-32); GLUCOSE,RANDOM 105 mg/dL (74-106); SGOT/AST 13 U/L (15-37); SGPT/ALT 17 U/L (12-78); TOT PROT 6.3 g/dl (6.4-8.2)
[2017-04-14] MEDS ORDERED: PANTOPRAZOLE SODIUM 40 MG VIAL ONE (10:04)
[2017-04-14] MEDS ORDERED: SODIUM CHLORIDE 100 ML IVPB ONE (10:04)
[2017-04-14] MEDS: METOPROLOL SUCCINATE 25 MG TAB.SR.24H (FP) PO SCH (10:29)
[2017-04-14] MEDS: PANTOPRAZOLE SODIUM 40 MG in SODIUM CHLORIDE 100 ML IVPB SCH (10:29)
[2017-04-14] MEDS: ASPIRIN 81 MG CHEWABLE TABLETS PO SCH (10:29)
[2017-04-14] MEDS: HEPARIN NA (PORCINE) 5,000 UNITS/ML 1ML VIAL SQ SCH ×2 (10:30→22:41)
[2017-04-14] MEDS ORDERED: INSULIN (NOVOLOG) ASPART 100 UNITS/ML 10ML VIAL ONE ×2 (11:12→20:31)
--- NOTE | 2017-04-14 12:47 | PN ---
Progress Note, Physician History of Present Illness: Pt w/o abd pain, N, V; she is asking to eat. Pt w/o CP, palp, SOB. Pt with hip pain, asked for pain medication. - Current Medication List Current Medications: Active Medications Aspirin (Asa -) 81 mg PO DAILY [facility] Last Admin: 04/14/17 10:29 Dose: 81 mg Heparin Sodium (Porcine) (Heparin -) 5,000 unit SQ BID [facility] Last Admin: 04/14/17 10:30 Dose: 5,000 unit Pantoprazole Sodium 40 mg/ (Sodium Chloride) 100 mls @ 200 mls/hr IVPB DAILY [facility] Last Admin: 04/14/17 10:29 Dose: 200 mls/hr Sodium Chloride (Normal Saline -) 1,000 mls @ 60 mls/hr IV ASDIR [facility] Last Admin: 04/14/17 06:42 Dose: Not Given Insulin Aspart (Novolog Vial Sliding Scale -) 1 vial SQ ACHS [facility] PRN Reason: Protocol Last Admin: 04/14/17 11:25 Dose: Not Given Metoprolol Succinate (Toprol Xl -) 25 mg PO DAILY [facility] Last Admin: 04/14/17 10:29 Dose: 25 mg Morphine Sulfate (Morphine Injection -) 2 mg IVPUSH Q6H PRN PRN Reason: PAIN Last Admin: 04/14/17 11:20 Dose: 2 mg Ondansetron HCl (Zofran Injection) 4 mg IVPB Q8H PRN PRN Reason: NAUSEA - Objective Vital Signs: Vital Signs Temperature 98.0 F 04/14/17 10:00 Pulse Rate 91 H 04/14/17 10:00 Respiratory Rate 18 04/14/17 10:00 Blood Pressure 130/6 04/14/17 10:00 O2 Sat by Pulse Oximetry (%) 90 L 04/14/17 10:00 Constitutional: Yes: No Distress, Calm Cardiovascular: Yes: Regular Rate and Rhythm, S1, S2 Respiratory: Yes: Regular, CTA Bilaterally, Other (coarse bilat (chronic)) Gastrointestinal: Yes: Normal Bowel Sounds, Soft. No: Palpable Mass, Tenderness Edema: No Neurological: Yes: Alert, Oriented Labs: CBC, BMP 04/14/17 06:20 04/14/17 06:20 INR, PTT INR 1.05 (0.82-1.09) 04/13/17 03:45 - ....Imaging X-ray: Report Reviewed Problem List - Problems (1) SBO (small bowel obstruction) Code(s): K56.69 - OTHER INTESTINAL OBSTRUCTION (2) COPD (chronic obstructive pulmonary disease) Code(s): J44.9 - CHRONIC OBSTRUCTIVE PULMONARY DISEASE, UNSPECIFIED (3) CAD (coronary artery disease) Code(s): I25.10 - ATHSCL HEART DISEASE OF [place] CORONARY ARTERY W/O ANG PCTRS (4) Diabetes mellitus Code(s): E11.9 - TYPE 2 DIABETES MELLITUS WITHOUT COMPLICATIONS (5) Hiatal hernia Code(s): K44.9 - DIAPHRAGMATIC HERNIA WITHOUT OBSTRUCTION OR GANGRENE Assessment/Plan Elevated lactic acid- resolved No oral DM meds for now BGM and Novolog coverage per SS. GI , Cardio consults appreciated. Sx Consult GI, DVT proph Trial of full liquid diet. Case was d/w pt and pt's dg (Kassidy) per pt request. AM labs
[2017-04-14] MEDS ORDERED: SODIUM CHLORIDE 1,000 ML IV SCH (15:45)
--- NOTE | 2017-04-14 15:45 | PN ---
GI Progress Note Subjective: GI Note: Pain free. No vomiting. FUA suggests SBO has resolved. Tolerated full liquid lunch and wants more to eat. No BM so far. Discussed MRCP with Dr Cohen. The CBD is dilated but there is no obvious focus of obstruction, stones or tumor. - Objective Vital Signs: Vital Signs Temperature 97.6 F 04/14/17 14:39 Pulse Rate 90 04/14/17 14:39 Respiratory Rate 18 04/14/17 14:39 Blood Pressure 108/53 04/14/17 14:39 O2 Sat by Pulse Oximetry (%) 90 L 04/14/17 10:00 Laboratory Tests 04/14/17 04/14/17 04/14/17 06:20 06:20 06:20 WBC 6.0 D Hct 32.6 Total Bilirubin 0.4 GGT 21 AST 13 L ALT 17 Alkaline Phosphatase 45 C-Reactive Protein 7.8 H Constitutional: No Distress ...Auscultate: Yes: Normoactive Bowel Sounds ...Palpate: Yes: Soft, Other (nontender) Labs: CBC, BMP 04/14/17 06:20 04/14/17 06:20 INR, PTT INR 1.05 (0.82-1.09) 04/13/17 03:45 Assessment/Plan SBO resolved. Will try soft diet for dinner. Fibrosure pending. Problem List - Problems (1) Dilated bile duct Code(s): K83.8 - OTHER SPECIFIED DISEASES OF BILIARY TRACT (2) Dilated intrahepatic bile duct Code(s): K83.8 - OTHER SPECIFIED DISEASES OF BILIARY TRACT (3) Chronic renal insufficiency Code(s): N18.9 - CHRONIC KIDNEY DISEASE, UNSPECIFIED (4) Retinopathy due to secondary diabetes Code(s): E13.319 - OTH DIABETES W UNSP DIABETIC RETINOPATHY W/O MACULAR EDEMA (5) Constipation Code(s): K59.00 - CONSTIPATION, UNSPECIFIED
[2017-04-14] MEDS: SIMBRINZA OPTHALMIC OU SCH (17:20)
[2017-04-14] MEDS: TRAVATAN Z EYE OU SCH (22:43)
[2017-04-15 06:07] LABS: SERUM IRON 20 ug/dL (27-139); TOTAL IRON BINDING CAPACITY 286 ug/dL (250-450); UIBC 266 ug/dL (118-369)
[2017-04-15] MEDS: INSULIN SLIDING SCALE (NOVOLOG) 1 VIAL SQ SCH ×4 (06:44→21:36)
[2017-04-15] MEDS ORDERED: INSULIN (NOVOLOG) ASPART 100 UNITS/ML 10ML VIAL ONE (07:03)
[2017-04-15] MEDS ORDERED: INSULIN DETEMIR 100 UNITS/ML MDV SQ ONE (07:03)
[2017-04-15] MEDS ORDERED: PT OWN MED DRAWER 7, Y5N ONE (07:04)
[2017-04-15 08:25] LABS: MCH 25.8 pg (25.7-33.7); MEAN CELL VOLUME 83.3 fl (80-96); MEAN PLT VOLUME 8.2 fl (7.5-11.1); PLATELET COUNT 257 K/MM3 (134-434); RDW 22.7 % (11.6-15.6); WHITE BLOOD COUNT 4.5 K/mm3 (4.0-10.0)
[2017-04-15 09:30] LABS: ALBUMIN 3.1 g/dl (3.4-5.0); ALK PHOS 45 U/L (45-117); ANION GAP 9 (8-16); BILIRUBIN,TOTAL 0.3 mg/dL (0.2-1.0); CALCIUM 8.7 mg/dL (8.5-10.1); CO2 26 mmol/L (21-32); GLUCOSE,RANDOM 142 mg/dL (74-106); SGOT/AST 12 U/L (15-37); SGPT/ALT 16 U/L (12-78)
[2017-04-15] MEDS ORDERED: SODIUM CHLORIDE 100 ML IVPB ONE (09:51)
[2017-04-15] MEDS ORDERED: PANTOPRAZOLE SODIUM 40 MG VIAL ONE (09:51)
[2017-04-15] MEDS: ASPIRIN 81 MG CHEWABLE TABLETS PO SCH (09:56)
[2017-04-15] MEDS: HEPARIN NA (PORCINE) 5,000 UNITS/ML 1ML VIAL SQ SCH ×2 (09:56→21:34)
[2017-04-15] MEDS: PANTOPRAZOLE SODIUM 40 MG in SODIUM CHLORIDE 100 ML IVPB SCH (09:56)
[2017-04-15] MEDS: METOPROLOL SUCCINATE 25 MG TAB.SR.24H (FP) PO SCH (09:57)
[2017-04-15] MEDS: SIMBRINZA OPTHALMIC OU SCH ×3 (09:59→18:41)
--- NOTE | 2017-04-15 10:27 | PN ---
Progress Note, Physician History of Present Illness: Pt w/o abd pain, N, V; she is tolerating liquid/ soft diet since dinner, no BM. Pt w/o CP, palp, SOB. - Current Medication List Current Medications: Active Medications Aspirin (Asa -) 81 mg PO DAILY [facility] Last Admin: 04/15/17 09:56 Dose: 81 mg Heparin Sodium (Porcine) (Heparin -) 5,000 unit SQ BID [facility] Last Admin: 04/15/17 09:56 Dose: 5,000 unit Pantoprazole Sodium 40 mg/ (Sodium Chloride) 100 mls @ 200 mls/hr IVPB DAILY [facility] Last Admin: 04/15/17 09:56 Dose: 200 mls/hr Sodium Chloride (Normal Saline -) 1,000 mls @ 30 mls/hr IV ASDIR [facility] Last Admin: 04/14/17 17:21 Dose: 30 mls/hr Insulin Aspart (Novolog Vial Sliding Scale -) 1 vial SQ ACHS [facility] PRN Reason: Protocol Last Admin: 04/15/17 06:44 Dose: Not Given Metoprolol Succinate (Toprol Xl -) 25 mg PO DAILY [facility] Last Admin: 04/15/17 09:57 Dose: 25 mg Morphine Sulfate (Morphine Injection -) 2 mg IVPUSH Q6H PRN PRN Reason: PAIN Last Admin: 04/14/17 11:20 Dose: 2 mg Pt's Own Med ( Simbrinza Opthalmic Suspension) 1 each OU TID@1000,1400,1800 [facility] Last Admin: 04/15/17 09:59 Dose: 1 each Pt's Own Med ( Travatan Z Eye Drops ) 1 each OU HS [facility] Last Admin: 04/14/17 22:43 Dose: 1 each Ondansetron HCl (Zofran Injection) 4 mg IVPB Q8H PRN PRN Reason: NAUSEA - Objective Vital Signs: Vital Signs Temperature 98.7 F 04/15/17 09:36 Pulse Rate 89 04/15/17 09:36 Respiratory Rate 18 04/15/17 09:36 Blood Pressure 159/82 04/15/17 09:36 O2 Sat by Pulse Oximetry (%) 91 L 04/14/17 21:00 Constitutional: Yes: No Distress, Calm Cardiovascular: Yes: Regular Rate and Rhythm, S1, S2 Respiratory: Yes: Regular, Other (coarse) Gastrointestinal: Yes: Normal Bowel Sounds, Soft, Abdomen, Obese. No: Tenderness Edema: No Neurological: Yes: Alert, Oriented Labs: CBC, BMP 04/15/17 07:30 04/15/17 07:30 INR, PTT INR 1.05 (0.82-1.09) 04/13/17 03:45 - ....Imaging MRI: Report Reviewed Problem List - Problems (1) SBO (small bowel obstruction) Code(s): K56.69 - OTHER INTESTINAL OBSTRUCTION (2) COPD (chronic obstructive pulmonary disease) Code(s): J44.9 - CHRONIC OBSTRUCTIVE PULMONARY DISEASE, UNSPECIFIED (3) CAD (coronary artery disease) Code(s): I25.10 - ATHSCL HEART DISEASE OF [place] CORONARY ARTERY W/O ANG PCTRS (4) Diabetes mellitus Code(s): E11.9 - TYPE 2 DIABETES MELLITUS WITHOUT COMPLICATIONS (5) Hiatal hernia Code(s): K44.9 - DIAPHRAGMATIC HERNIA WITHOUT OBSTRUCTION OR GANGRENE Assessment/Plan Elevated lactic acid- resolved Restart Januvia (100 mg per pt), Metformin; f/u BGM BGM and Novolog coverage per SS. GI consult appreciated; to f/u if additional studies are needed (pt with anemia , thick gastric folds) Cardio consult appreciated. Sx Consult GI, DVT proph Trial of full liquid diet. AM labs
[2017-04-15] MEDS ORDERED: PATIENT'S OWN MEDICATION (NON-FORMULARY) (Canagliflozin [Invokana] 100 MG) PO SCH (10:30)
[2017-04-15] MEDS: metFORMIN HCL 500 MG TABLET (FP) PO SCH ×2 (12:08→18:39)
--- NOTE | 2017-04-15 15:04 | PN ---
GI Progress Note Subjective: Tolerating solids. NO pain or vomiting but has not yet moved her bowels. The MRI reveals no CBD obstruction or stones. It suggests a thickened gastric antrum. Her last EGD was over 5 years ago. I have proposed an EGD to exclude a gastric neoplasm. I have discussed the potential for such complications as perforation and hemorrhage. She has granted an informed consent. - Objective Vital Signs: Vital Signs Temperature 98.1 F 04/15/17 12:15 Pulse Rate 78 04/15/17 12:15 Respiratory Rate 18 04/15/17 12:15 Blood Pressure 145/75 04/15/17 12:15 O2 Sat by Pulse Oximetry (%) 91 L 04/14/17 21:00 Constitutional: No Distress ...Auscultate: Yes: Normoactive Bowel Sounds ...Palpate: Yes: Soft, Other (nontender) Labs: CBC, BMP 04/15/17 07:30 04/15/17 07:30 INR, PTT INR 1.05 (0.82-1.09) 04/13/17 03:45 Assessment/Plan SBO resolved. Will schedule EGD for tomorrow morning. If unrevealing can consider discharge. Problem List - Problems (1) Dilated bile duct Code(s): K83.8 - OTHER SPECIFIED DISEASES OF BILIARY TRACT (2) Dilated intrahepatic bile duct Code(s): K83.8 - OTHER SPECIFIED DISEASES OF BILIARY TRACT (3) Chronic renal insufficiency Code(s): N18.9 - CHRONIC KIDNEY DISEASE, UNSPECIFIED (4) Retinopathy due to secondary diabetes Code(s): E13.319 - OTH DIABETES W UNSP DIABETIC RETINOPATHY W/O MACULAR EDEMA (5) Constipation Code(s): K59.00 - CONSTIPATION, UNSPECIFIED
[2017-04-15] MEDS: TRAVATAN Z EYE OU SCH (21:35)
[2017-04-16 00:06] LABS: CA 19-9 12 U/mL (0-35)
[2017-04-16] MEDS: metFORMIN HCL 500 MG TABLET (FP) PO SCH (06:13)
[2017-04-16] MEDS: INSULIN SLIDING SCALE (NOVOLOG) 1 VIAL SQ SCH ×2 (06:13→11:35)
[2017-04-16 08:40] LABS: MCH 25.9 pg (25.7-33.7); MEAN CELL VOLUME 83.5 fl (80-96); PLATELET COUNT 290 K/MM3 (134-434); RDW 22.4 % (11.6-15.6); WHITE BLOOD COUNT 4.3 K/mm3 (4.0-10.0)
[2017-04-16] MEDS: METOPROLOL SUCCINATE 25 MG TAB.SR.24H (FP) PO SCH ×2 (08:43→11:35)
[2017-04-16 09:15] LABS: ANION GAP 11 (8-16); CALCIUM 9.2 mg/dL (8.5-10.1); CO2 26 mmol/L (21-32); GLUCOSE,RANDOM 170 mg/dL (74-106)
[2017-04-16] MEDS ORDERED: PROPOFOL 20 ML ONE (09:52)
[2017-04-16] MEDS ORDERED: PANTOPRAZOLE 40 MG TABLET (FP) PO SCH (10:00)
[2017-04-16] MEDS: SIMBRINZA OPTHALMIC OU SCH ×2 (10:00→14:18)
--- NOTE | 2017-04-16 11:10 | PN ---
Progress Note (short form) - Note Progress Note: GI Procedure NOte: Please see scanned EGD report. No evidence of neoplasms found. Patchy antral gastritis and a small sliding hiatal hernia were found. Antral and duodenal biopsies were taken. Would continue the PPI given the gastritis. No GI objections to discharge. Fibrosure is still pending. Results discussed with Marjorie , her daughter and . Problem List - Problems (1) Dilated bile duct Code(s): K83.8 - OTHER SPECIFIED DISEASES OF BILIARY TRACT (2) Dilated intrahepatic bile duct Code(s): K83.8 - OTHER SPECIFIED DISEASES OF BILIARY TRACT (3) Chronic renal insufficiency Code(s): N18.9 - CHRONIC KIDNEY DISEASE, UNSPECIFIED (4) Retinopathy due to secondary diabetes Code(s): E13.319 - OTH DIABETES W UNSP DIABETIC RETINOPATHY W/O MACULAR EDEMA (5) Constipation Code(s): K59.00 - CONSTIPATION, UNSPECIFIED
--- NOTE | 2017-04-16 11:26 | DS ---
Physical Examination Vital Signs: Vital Signs Temperature 98.0 F 04/16/17 11:10 Pulse Rate 73 04/16/17 11:10 Respiratory Rate 19 04/16/17 11:10 Blood Pressure 156/76 04/16/17 11:10 O2 Sat by Pulse Oximetry (%) 95 04/16/17 11:10 Findings/Remarks: Pt w/o abd pain, N, V. Pt w/o fever, CP, palp, cough. s/p EGD this AM, results were reviewed with Dr. Alonso. Constitutional: Yes: No Distress, Calm Cardiovascular: Yes: Regular Rate and Rhythm, S1, S2 Respiratory: Yes: Regular, Other (coarse BS) Gastrointestinal: Yes: Normal Bowel Sounds, Soft. No: Tenderness Edema: No Neurological: Yes: Alert, Oriented Labs: CBC, BMP 04/16/17 08:15 04/16/17 08:15 Discharge Summary Reason For Visit: SMALL BOWEL OBSTRUCTION Current Active Problems CAD (coronary artery disease) (Acute) COPD (chronic obstructive pulmonary disease) (Acute) Chronic renal insufficiency (Acute) Constipation (Acute) Diabetes mellitus (Acute) Dilated bile duct (Acute) Dilated intrahepatic bile duct (Acute) Hiatal hernia (Acute) Retinopathy due to secondary diabetes (Acute) SBO (small bowel obstruction) (Acute) Procedures: Principal: Abd/ Pelvis CT scan with IV contrast. Abd MRI w/o contrast Other Procedures: Abd XR Hospital Course: Pt came to ER c/o abd pain, mainly epigastric area, found to have SBO, was admitted. Surgical consult ( Dr. Christine) and GI consult (Dr. Alonso) was called. Pt underwent Abd/ Pelvis CT scan and Abd MRI, c/w thick gastric folds, enlarged CBD, small subcapsular spleen fluid, bilat extrarenal pelvis. Pt's SBO resolved with medical treatment. Pt underwent EGD, no mass, biopsies were taken. Pt to be DC'ed home with outpatient f/u. Condition: Fair - Instructions Diet, Activity, Other Instructions: Diet: ADA, Low salt, Low cholesterol Referrals: Duc Perez MD [Primary Care Provider] - (in 1-2 weeks) Fara Alonso MD [Staff Physician] - (as scheduled) Disposition: HOME - Home Medications Comprehensive Discharge Medication List: Ambulatory Orders this list might NOT be accurate Aspirin [ASA -] 81 mg PO DAILY 04/12/17 Canagliflozin [Invokana] 300 mg PO DAILY 04/12/17 Docusate Sodium [Colace -] 100 mg PO BID 04/12/17 Esomeprazole Magnesium [Nexium 24Hr] 40 mg PO DAILY 04/12/17 Ferrous Sulfate [Feosol] 325 mg PO DAILY 04/12/17 Glipizide [Glucotrol -] 10 mg PO BID 04/12/17 Metformin HCl [Glucophage] 1,000 mg PO BID 04/12/17 Metoclopramide HCl [Reglan -] 10 mg PO DAILY 04/12/17 Metoprolol Succinate [Toprol Xl -] 25 mg PO DAILY 04/12/17 Nateglinide [Starlix (Nf)] 120 mg PO TID 04/12/17 Olmesartan Medoxomil [Benicar (Nf)] 20 mg PO DAILY 04/12/17 Pioglitazone HCl [Actos] 15 mg PO DAILY 04/12/17 Simvastatin [Zocor -] 40 mg PO HS 04/12/17 Solifenacin Succinate [Vesicare -] 10 mg PO DAILY 04/12/17
[2017-04-16] MEDS ORDERED: INSULIN (NOVOLOG) ASPART 100 UNITS/ML 10ML VIAL ONE (11:33)
[2017-04-16] MEDS: ASPIRIN 81 MG CHEWABLE TABLETS PO SCH (11:35)
[2017-04-16 16:32] VITALS: BP 132/61; PULSE 75; TEMP 98.2
[2017-04-17 08:10] LABS: ALPHA 2 MACROGLOBULINS,QN 303 mg/dL (110-276); BILIRUBIN TOTAL 0.1 mg/dL (0.0-1.2); GGT= 13 IU/L (0-60); GLUCOSE SERUM 115 mg/dL (65-99); HAPTOGLOBIN= 217 mg/dL (34-200); HEIGHT 62 Inches (.); TRIGLYCERIDES= 167 mg/dL (0-149)
--- NOTE | 2017-04-17 12:45 | PATH ---
Surgical Pathology Report Patient Name: EMANUEL PENALOZA [facility]. Rec. #: [id number] /Age/Gender: 1940 (Age: 76) / F Account: [id number] Location: [address] [place] [address]/[facility] Taken: 04/16/2017 Received: 04/16/2017 Reported: 04/17/2017 Physicians: Fara Alonso M.D. Specimen(s) Received A: BX SECOND PORTION DUODENUM AND DUODENAL BULB B: BX ANTRUM Clinical History Abnormal MRI, abdominal pain Antral gastritis, small sliding hiatal hernia Final Diagnosis A. DUODENUM, SECOND PORTION AND BULB, BIOPSY: DUODENAL MUCOSA WITH MILD CHRONIC INFLAMMATION. NO HISTOLOGIC EVIDENCE OF GLUTEN SENSITIVE ENTEROPATHY (CELIAC DISEASE). B. STOMACH, ANTRUM, BIOPSY: GASTRIC ANTRAL MUCOSA WITH MODERATE CHRONIC GASTRITIS AND MILD REACTIVE GASTROPATHY. IMMUNOSTAINS FOR H. PYLORI IS NEGATIVE FOR ORGANISMS. Electronically Signed Adonis Soto M.D. Gross Description A. Received in formalin, labeled "biopsy second portion of duodenum and duodenal bulb" are 3 kumari, irregular portions of soft tissue averaging 0.3 cm in greatest dimension. The specimens are submitted in toto in one cassette. B. Received in formalin, labeled "biopsy antrum" are 4 kumari, irregular portions of soft tissue ranging from 0.1-0.3 cm in greatest dimension. The specimens are submitted in toto in one cassette. 04/16/201704/16/2017
== END 2017-04-16 16:50 | disposition home or self-care (01) | DRG 389 ==
LOC: JER 22:49 → JERBED 04-13 03:41 → J5S 04-13 05:31
PROVIDERS: ADMIT Specialist; ATTEND Specialist
PROC: 0DB68ZX Excision of Stomach, Via Natural or Artificial Opening Endoscopic, Diagnostic (ICD-10-PCS; 2017-04-16)
PROC: 0DB98ZX Excision of Duodenum, Via Natural or Artificial Opening Endoscopic, Diagnostic (ICD-10-PCS; principal; 2017-04-16 10:00)
DX: K56.5 Intestinal adhesions [bands] with obstruction (postinfection) (principal); E87.2 Acidosis; I25.10 Atherosclerotic heart disease of native coronary artery without angina pectoris; J44.9 Chronic obstructive pulmonary disease, unspecified; K44.9 Diaphragmatic hernia without obstruction or gangrene; E11.9 Type 2 diabetes mellitus without complications; K59.09 Other constipation; E11.319 Type 2 diabetes mellitus with unspecified diabetic retinopathy without macular edema; E11.21 Type 2 diabetes mellitus with diabetic nephropathy; E78.5 Hyperlipidemia, unspecified; I25.2 Old myocardial infarction; K83.8 Other specified diseases of biliary tract; D64.9 Anemia, unspecified; K29.70 Gastritis, unspecified, without bleeding; I12.9 Hypertensive chronic kidney disease with stage 1 through stage 4 chronic kidney disease, or unspecified chronic kidney disease; E11.22 Type 2 diabetes mellitus with diabetic chronic kidney disease; N18.9 Chronic kidney disease, unspecified; Z86.73 Personal history of transient ischemic attack (TIA), and cerebral infarction without residual deficits; Z87.891 Personal history of nicotine dependence
CPT/HCPCS: 36415; 74020-TC; 74177-TC; 74181-TC; 80048; 80053; 81003; 81015; 82150; 82172; 82247; 82465; 82728; 82947; 82977; 83010; 83540; 83550; 83605; 83690; 83883; 84450; 84460; 84478; 84484; 85025; 85027; 85044; 85610; 86140; 86301; 86850; 86900; 86901; 88305-TC; 93005; 93010; 99283-25; J1644

== ENCOUNTER 2018-04-28 07:50 | Day surgery (SDC) | payer OTHER ==
[2018-04-27 14:08] VITALS: BMI 25.6
[2018-04-28 09:36] VITALS: TEMP 97.7
[2018-04-28 11:25] VITALS: BP 149/60; PULSE 72
--- NOTE | 2018-04-30 15:27 | PATH ---
Surgical Pathology Report Patient Name: EMANUEL PENALOZA [facility]. Rec. #: [id number] /Age/Gender: 1940 (Age: 78) / F Account: [id number] Location: [facility] Taken: 04/28/2018 Received: 04/28/2018 Reported: 04/30/2018 Physicians: Ranulfo Brooke M.D. Specimen(s) Received A: BX ANTRUM B: BX GASTRIC BODY Clinical History Abdominal pain, screening Postoperative diagnosis: Gastritis Final Diagnosis A. ANTRUM, BIOPSY: MILD CHRONIC GASTRITIS WITH FOCAL INTESTINAL METAPLASIA AND FEATURES OF REACTIVE GASTROPATHY. IMMUNOSTAIN IS NEGATIVE FOR H. PYLORI ORGANISMS. B. GASTRIC BODY, BIOPSY: MILD CHRONIC GASTRITIS. IMMUNOSTAIN IS NEGATIVE FOR H. PYLORI ORGANISMS. Electronically Signed Winifred Plascencia M.D. Gross Description A. Received in formalin, labeled "biopsy antrum" are 4 kumari, irregular portions of soft tissue ranging from 0.2-0.4 cm. in greatest dimension. The specimens are submitted in toto in one cassette. B. Received in formalin, labeled "biopsy gastric body" are 3 kumari, irregular portions of soft tissue ranging from 0.3-0.5 cm. in greatest dimension. The specimens are submitted in toto in one cassette. 04/28/2018 [facility]04/28/2018
== END 2018-04-28 10:55 | disposition home or self-care (01) ==
LOC: JASU-ENDO 07:50
PROVIDERS: ATTEND Internal Medicine Gastroenterology
PROC: 0DB68ZX Excision of Stomach, Via Natural or Artificial Opening Endoscopic, Diagnostic (ICD-10-PCS; principal; 2018-04-28 09:15)
DX: R10.13 Epigastric pain (principal); K29.70 Gastritis, unspecified, without bleeding
CPT/HCPCS: 88305-TC; 88342-TC

== ENCOUNTER 2019-01-21 21:42 | Emergency (ER) | payer OTHER | END 2019-01-22 03:00 | disposition home or self-care (01) | LOC: JER 21:42 | PROC: 3E0F7GC Introduction of Other Therapeutic Substance into Respiratory Tract, Via Natural or Artificial Opening (ICD-10-PCS; principal; 2019-01-21) | PROC: 3E033GC Introduction of Other Therapeutic Substance into Peripheral Vein, Percutaneous Approach (ICD-10-PCS; 2019-01-21) | PROC: 3E033GC Introduction of Other Therapeutic Substance into Peripheral Vein, Percutaneous Approach (ICD-10-PCS; 2019-01-21) | PROC: 3E033GC Introduction of Other Therapeutic Substance into Peripheral Vein, Percutaneous Approach (ICD-10-PCS; 2019-01-21) | DX: R10.13 Epigastric pain (principal); E87.6 Hypokalemia; E83.42 Hypomagnesemia; I25.10 Atherosclerotic heart disease of native coronary artery without angina pectoris; I11.0 Hypertensive heart disease with heart failure; I50.9 Heart failure, unspecified; Z95.5 Presence of coronary angioplasty implant and graft; I25.2 Old myocardial infarction; E11.9 Type 2 diabetes mellitus without complications; Z79.84 Long term (current) use of oral hypoglycemic drugs; E78.00 Pure hypercholesterolemia, unspecified; J43.8 Other emphysema; J45.909 Unspecified asthma, uncomplicated; D64.9 Anemia, unspecified; Z99.81 Dependence on supplemental oxygen ==

== ENCOUNTER → 2019-03-02 | Emergency (ER) | payer OTHER | LOC: JER 22:54 ==

== ENCOUNTER 2019-03-24 14:26 | Inpatient (IN) | payer OTHER ==
--- NOTE | 2019-03-24 14:32 | PDOC ---
Rapid Medical Evaluation Time Seen by Provider: 03/24/19 14:29 Medical Evaluation: Allergies Allergy/AdvReac Type Severity Reaction Status Date / Time No Known Allergies Allergy Verified 04/12/17 23:21 03/24/19 14:30 HPI: Sent by Dr Kaiser for blood transfusion PE: In wheel chair no apparent distress ORDERS: Labs Discharge Disposition - Diagnosis Weak - Referrals - Patient Instructions - Post Discharge Activity
--- NOTE | 2019-03-24 14:48 | PDOC ---
History of Present Illness - General Chief Complaint: Weakness Stated Complaint: SENT BY PCP / BLOOD TRANSFUSION Time Seen by Provider: 03/24/19 14:29 - History of Present Illness Initial Comments: 78 yo F with h/o DM, HTN, COPD ( Home O2), CAD, [place], SBO, cholecystectomy presents for evaluation of anemia (Hgb 7.0 in office) with associated generalized weakness. Per the office report she has also had decreased exercise tolerance and increasing exertional dyspnea. She reports chronic anemia, is unsure of the source, and her last transfusion was 1 week ago. She was in [facility] for 5 days and at [facility] for 5 days prior to that for similar complaints. She is scheduled to undergo an endoscopy on 04/20/19 w/ Dr. Feng She denies MORA, vision changes, chest pain, current trouble breathing, N/V/C/D, dysuria, hematuria, or blood in her stool 03/24/19 14:47 Past History - Past Medical History Allergies/Adverse Reactions: Allergies Allergy/AdvReac Type Severity Reaction Status Date / Time No Known Allergies Allergy Verified 03/24/19 14:36 Home Medications: Ambulatory Orders Aspirin [ASA -] 81 mg PO DAILY 04/12/17 Metoprolol Succinate [Toprol XL -] 25 mg PO DAILY 04/12/17 Nateglinide [Starlix (Nf) -] 120 mg PO TID 04/12/17 Olmesartan Medoxomil [Benicar -] 20 mg PO DAILY 04/12/17 Albuterol Sulfate Inhaler - [Ventolin HFA Inhaler -] 1 - 2 inh PO Q4H PRN Pioglitazone HCl 15 mg PO DAILY 04/28/18 Ranitidine HCl 150 mg PO BID 04/28/18 Ferrous Sulfate [Feosol] 325 mg PO DAILY 02/15/19 Fluticasone Propionate [Flovent Diskus] 110 mcg IH BID 03/24/19 Metformin HCl [Glucophage] 1,000 mg PO DAILY 03/24/19 Anemia: Yes Asthma: Yes Cancer: No Cardiac Disorders: Yes (ASCAD) CVA: Yes COPD: Yes (EMPHYSEMA) CHF: Yes Dementia: No Diabetes: Yes GI Disorders: Yes (HIATAL HERNIA,H/O COLON ADENOMA) Disorders: No HTN: Yes Hypercholesterolemia: Yes Liver Disease: No Seizures: No Thyroid Disease: No - Surgical History Abdominal Surgery: No Appendectomy: Yes Cardiac Surgery: Yes (mi- s/p stent) Cholecystectomy: Yes Lung Surgery: No Neurologic Surgery: No Orthopedic Surgery: No - Immunization History Immunization Up to Date: No - Suicide/Smoking/Psychosocial Hx Smoking History: Current every day smoker Have you smoked in the past 12 months: No Number of Cigarettes Smoked Daily: 6 If you are a former smoker, when did you quit?: 6 years ago Information on smoking cessation initiated: No Hx Alcohol Use: No Drug/Substance Use Hx: No Substance Use Type: None Hx Substance Use Treatment: No Review of Systems - Review of Systems Able to Perform ROS?: Yes Comments:: GENERAL/CONSTITUTIONAL: No fever or chills HEAD, EYES, EARS, NOSE AND THROAT: No change in vision. No sore throat CARDIOVASCULAR: No chest pain or shortness of breath RESPIRATORY: Denies cough, hemoptysis GASTROINTESTINAL: No nausea, vomiting, diarrhea or constipation GENITOURINARY: No dysuria, frequency, or change in urination MUSCULOSKELETAL: No joint or muscle swelling or pain. No neck or back pain SKIN: No rash NEUROLOGIC: No headache, vertigo, loss of consciousness, or change in strength/ sensation ENDOCRINE: No increased thirst. No abnormal weight change HEMATOLOGIC/LYMPHATIC: +Anemia ALLERGIC/IMMUNOLOGIC: No hives or skin allergy 03/24/19 14:47 Is the patient limited Slovak proficient: No *Physical Exam - Vital Signs Last Vital Signs Temp Pulse Resp BP Pulse Ox 98.3 F 84 16 145/84 100 03/24/19 14:36 03/24/19 14:36 03/24/19 14:36 03/24/19 14:36 03/24/19 14:36 - Physical Exam Comments: GENERAL: Awake, alert, and oriented to person/place/time, in no acute distress HEAD: No signs of trauma, normocephalic, atraumatic EYES: PERRLA, EOMI, sclera anicteric, conjunctiva clear ENT: Hearing grossly normal, nares patent, oropharynx clear without exudates. Moist mucosa LUNGS: No distress, speaks in full sentences, clear to auscultation bilaterally HEART: Regular rate and rhythm, normal S1 and S2, no murmurs appreciated, peripheral pulses normal and equal bilaterally ABDOMEN: Soft, nontender, normoactive bowel sounds. No guarding, no rebound EXTREMITIES: Normal inspection, Normal range of motion, no edema. No clubbing or cyanosis NEUROLOGICAL: Cranial nerves II through XII grossly intact. Normal speech, normal gait, no focal sensorimotor deficits SKIN: Warm, Dry, Pale 03/24/19 14:48 ED Treatment Course - LABORATORY CBC & Chemistry Diagram: 03/24/19 15:20 03/24/19 15:20 Medical Decision Making - Medical Decision Making The pt is a 78F who presents for evaluation of symptomatic anemia w/ generalized weakness ED Course Lab sent IV placed 03/24/19 15:32 Hgb 7.6, will order 1u pRBC No leukocytosis Lytes unremarkable LFTs unremarkable Trop I neg Plan for admission for symptomatic anemia. Overhead page placed, awaiting call back 03/24/19 16:34 Pt noted to be on intermittent O2 at home, placed on O2 ECG w/o evidence of acute TRISH, HR 95; QTc 442 CXR w/o acute PNA, PNX, persistent hilar fulness from previous noted Pt discussed with Dr. Perez Consult order placed for Dr. Elliott Dispo: Admit 03/24/19 17:39 *DC/Admit/Observation/Transfer Diagnosis at time of Disposition: Weak, Symptomatic anemia - Discharge Dispostion Condition at time of disposition: Good Decision to Admit order: Yes - Referrals Referrals: Duc Perez MD [Primary Care Provider] - - Patient Instructions - Post Discharge Activity
[2019-03-24 16:08] LABS: BASO % 0.4 % (0-2.0); EOS % 0.7 % (0-4.5); HEMATOCRIT 23.5 % (32.4-45.2); HEMOGLOBIN 7.6 GM/dL (10.7-15.3); LYMPH % 12.6 % (8-40); MCH 26.5 pg (25.7-33.7); MCHC 32.2 g/dl (32.0-36.0); MEAN CELL VOLUME 82.1 fl (80-96); MEAN PLT VOLUME 7.9 fl (7.5-11.1); MONO % 4.7 % (3.8-10.2); NEUT % 81.6 % (42.8-82.8); PLATELET COUNT 477 K/MM3 (134-434); RBC 2.87 M/mm3 (3.60-5.2); RDW 18.1 % (11.6-15.6); WHITE BLOOD COUNT 7.8 K/mm3 (4.0-10.0)
--- NOTE | 2019-03-24 16:09 | PDOC ---
Documentation entered by Lynda Terry SCRIBE, acting as scribe for Maday Ruth MD. Maday Ruth MD: This documentation has been prepared by the Mara cee Brenda, SCRIBE, under my direction and personally reviewed by me in its entirety. I confirm that the documentation accurately reflects all work, treatment, procedures, and medical decision making performed by me. Attending Attestation - Resident Resident Name: Rohan Bazan - ED Attending Attestation I have performed the following: I have examined & evaluated the patient, The case was reviewed & discussed with the resident, I agree w/resident's findings & plan, Exceptions are as noted - HPI HPI: 03/24/19 16:25 78 yo F PMH of DM, HTN, COPD ( Home O2), CAD, [place], SBO, who presents to the emergency department with evaluation for anemia of hgb found at 7, while in PCP s office which she associates with her generalized weakness. As per the office , the patient has been experiencing decreased exercise tolerance and more shortness of breath with exertion. Patient reports that her last transfusion was 1 week ago, as per chronic anemia. Patient reports having an endoscopy scheduled with Dr. Feng on 04/20/19. pt did have recent cardiac cath which was positive, but unable to stent per dr perez. The patient denies chest pain, current shortness of breath, headache and dizziness. Denies fever, chills, nausea, vomiting, diarrhea and constipation. Denies dysuria, frequency, urgency and hematuria. Allergies: NKA Past surgical history: mi- s/p stent, cholecystectomy, appendectomy Social history: Current everyday smoker, smokes 6 a day. PCP: Dr. Duc Perez 03/24/19 17:03 - Physicial Exam PE: 03/24/19 17:05 head awake alert nad. lungs decreased at bases. no crackles. heart no mrg abd soft mild epigastric ruq ttp. no reboung no guarding. ext wwp no edema. no calf tenderness. 2+ dp/ pt pulses bilaterally. - Medical Decision Making 03/24/19 17:06 78 yo F with h/o copd htn cad (no stent) home oxygen, here with progressive sob , fatigue, epigastric pain. pt was found to be anemia hgb of 7 in outpt. here today mild epigastric ttp differential pud, bleeding ulcer, denies melena or dark stool, iron deficiency anemia, infection such as pna, recurrent mi from anemia, atypical angina. plan protonix drip, duonebs. oxygen. ekg will admit for transfusion. d/w dr perez. will admit pt. Heart Score/ECG Review #1 General ECG Interpretation: Sinus Rhythm, Normal Rate, Normal Intervals, No acute ischemic changes
[2019-03-24 16:10] LABS: INR 1.12 (0.83-1.09); PROTHROMBIN TIME (PATIENT) 13.2 SEC (9.7-13.0)
[2019-03-24 16:13] LABS: ACTIVATED PTT 30.5 SECONDS (25.2-36.5)
[2019-03-24 16:18] LABS: ALBUMIN 3.5 g/dl (3.4-5.0); BILIRUBIN,TOTAL 0.5 mg/dL (0.2-1); BLOOD UREA NITROGEN 34.9 mg/dL (7-18); CALCIUM 8.9 mg/dL (8.5-10.1); CREATININE 1.2 mg/dL (0.55-1.3); POTASSIUM 4.2 mmol/L (3.5-5.1); TOT PROT 6.7 g/dl (6.4-8.2)
[2019-03-24] MEDS ORDERED: PANTOPRAZOLE SODIUM 40 MG VIAL IVPUSH ONE (17:06)
[2019-03-24 17:57] LABS: EPI CELLS 2.3 /HPF (0-5/HPF); HYALINE CASTS 1 /lpf (0-8); PH,URINE 6.5 (5.0-8.0); URINE APPEARANCE CLEAR; URINE BACTERIA 34.7 /hpf (NEGATIVE); URINE BILIRUBIN NEGATIVE (NEGATIVE); URINE COLOR YELLOW; URINE GLUCOSE (UA) NEGATIVE (NEGATIVE); URINE KETONE NEGATIVE (NEGATIVE); URINE LEUK ESTERASE TRACE (NEGATIVE); URINE NITRITE NEGATIVE (NEGATIVE); URINE PROTEIN NEGATIVE (NEGATIVE); URINE RBC 0 /hpf (0-4); URINE UROBILINOGEN 0.2 mg/dL (0.2-1.0); URINE WBC 4 /hpf (0-5)
[2019-03-24] MEDS ORDERED: PANTOPRAZOLE SODIUM 40 MG/100 ML BAG IVPB ONE (18:36)
[2019-03-24] MEDS ORDERED: PANTOPRAZOLE SODIUM 40 MG VIAL ONE (18:39)
[2019-03-24] MEDS ORDERED: ALBUTEROL SO4 8 GM HFA INHALER IH PRN (22:03)
[2019-03-24] MEDS ORDERED: RANITIDINE HCL 150 MG TABLET (FP) ONE (22:55)
[2019-03-24] MEDS: RANITIDINE HCL 150 MG TABLET (FP) PO SCH (23:04)
[2019-03-25] MEDS ORDERED: PATIENT'S OWN MEDICATION (NON-FORMULARY) (Nateglinide 120 MG) PO SCH (06:00)
[2019-03-25] MEDS ORDERED: PT OWN MED DRAWER 7, Y5N ONE (06:09)
[2019-03-25] MEDS: PIOGLITAZONE HCL 15 MG TABLET (FP) PO SCH (06:13)
[2019-03-25] MEDS: metFORMIN HCL 500 MG TABLET (FP) PO SCH (06:13)
[2019-03-25] MEDS: INSULIN SLIDING SCALE (NOVOLOG) 1 VIAL SQ SCH ×3 (06:13→22:46)
[2019-03-25 07:23] LABS: HEMATOCRIT 24.5 % (32.4-45.2); HEMOGLOBIN 7.9 GM/dL (10.7-15.3); MCH 26.1 pg (25.7-33.7); MCHC 32.1 g/dl (32.0-36.0); MEAN CELL VOLUME 81.2 fl (80-96); MEAN PLT VOLUME 7.8 fl (7.5-11.1); PLATELET COUNT 371 K/MM3 (134-434); RBC 3.02 M/mm3 (3.60-5.2); RDW 17.5 % (11.6-15.6); WHITE BLOOD COUNT 18.8 K/mm3 (4.0-10.0)
--- NOTE | 2019-03-25 08:02 | HP ---
Admitting History and Physical - Primary Care Physician PCP: Duc Perez - Admission Chief Complaint: Weakness History of Present Illness: Pt came to my office for f/u after recent hospitalization for CP, R/I NSTEMI, was transferred to [facility] for cardiac cath ( + for significant CAD; decided to be treated medically); pt c/o weakness, recnt labs from Endo (Dr. Frost were reviewed) c/w with significant anemia. Pt was directed to ER for further evaluation, admission, PRBC Tx. Pt was Tx one unit of PRBC last night. History Source: Patient - Past Medical History [employer]ATOR: Yes: CVA (residual left lower lip numbness) Cardiovascular: Yes: CAD, HTN, [place], Hyperlipdemia Pulmonary: Yes: COPD Gastrointestinal: Yes: Constipation, Hiatal Hernia Renal/: Yes: Renal Inusuff ...: No Psych: Yes: Depression Endocrine: Yes: Diabetes Mellitus (with diabetic retinopathy ( had interventions ) and nephropathy ) - Past Surgical History Past Surgical History: Yes: Appendectomy, Tubal Ligation, Colonoscopy, Upper Endoscopy, Breast Biopsy, Cholecystectomy - Smoking History Smoking history: Current every day smoker Have you smoked in the past 12 months: No Aproximately how many cigarettes per day: 6 If you are a former smoker, when did you quit?: 6 years ago - Alcohol/Substance Use Hx Alcohol Use: No History of Substance Use: reports: None - Social History ADL: Independent 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 History of Recent Travel: No Home Medications - Allergies Allergies/Adverse Reactions: Allergies Allergy/AdvReac Type Severity Reaction Status Date / Time No Known Allergies Allergy Verified 03/24/19 14:36 - Home Medications Home Medications: Ambulatory Orders Aspirin [ASA -] 81 mg PO DAILY 04/12/17 Metoprolol Succinate [Toprol XL -] 25 mg PO DAILY 04/12/17 Nateglinide [Starlix (Nf) -] 120 mg PO TID 04/12/17 Olmesartan Medoxomil [Benicar -] 20 mg PO DAILY 04/12/17 Albuterol Sulfate Inhaler - [Ventolin HFA Inhaler -] 1 - 2 inh PO Q4H PRN Pioglitazone HCl 15 mg PO DAILY 04/28/18 Ranitidine HCl 150 mg PO BID 04/28/18 Ferrous Sulfate [Feosol] 325 mg PO DAILY 02/15/19 Fluticasone Propionate [Flovent Diskus] 110 mcg IH BID 03/24/19 Metformin HCl [Glucophage] 1,000 mg PO DAILY 03/24/19 Family Disease History - Family Disease History Family Disease History: Diabetes: Mother ( unknown cause), Sister, Son, Heart Disease: Son, CA: Daughter ( lung cancer), Other: Father ( in his 40s of bleeding ulcer) Review of Systems - Review of Systems Constitutional: reports: Weakness (unchanged froom yesterday). denies: Chills, Fever Eyes: reports: Double Vision. denies: Blurred Vision HENT: denies: Difficult Swallowing, Ear Discharge, Ear Pain, Nasal Congestion, Throat Pain Neck: denies: Pain on Movement, Stiffness Cardiovascular: denies: Chest Pain, Edema, Palpitations Respiratory: reports: SOB on Exertion. denies: Cough, Wheezing Gastrointestinal: reports: Abdominal Pain (epigastric pain). denies: Diarrhea, Vomiting Genitourinary: denies: Burning, Dysuria Musculoskeletal: denies: Back Pain, Joint Swelling Integumentary: denies: Bruising, Rash Neurological: denies: Change in LOC, Confusion Endocrine: denies: Excessive Sweating, Intolerance to Cold Hematology/Lymphatic: denies: Easily Bruised, Excessive Bleeding Psychiatric: denies: Anxiety, Depression Physical Examination Vital Signs: Vital Signs Temperature 98.1 F 03/25/19 06:00 Pulse Rate 75 03/25/19 06:00 Respiratory Rate 20 03/25/19 06:00 Blood Pressure 112/50 L 03/25/19 06:00 O2 Sat by Pulse Oximetry (%) 98 03/25/19 00:00 Constitutional: Yes: No Distress, Calm Eyes: Yes: Conjunctiva Clear, EOM Intact, PERRL. No: Sclera Icterus HENT: Yes: Normocephalic. No: Rhinnorhea, Thrush Neck: Yes: Trachea Midline. No: Lymphadenopathy Cardiovascular: Yes: Regular Rate and Rhythm, S1, S2 Respiratory: Yes: Regular, Other (coarse BS). No: Rales (no crackles) Gastrointestinal: Yes: Normal Bowel Sounds, Soft. No: Tenderness, Epigastrium ...Rectal Exam: Yes: Deferred Renal/: Yes: CVA Tenderness - Right. No: CVA Tenderness - Left Breast(s): Yes: Other (deferred) Edema: No (pretibial) Neurological: Yes: Alert, Oriented, Other (motor and sensory is symmetric in UE / LE/ face) Psychiatric: Yes: Alert, Oriented Imaging - Results Chest X-ray: Report Reviewed Problem List - Problems (1) Weakness Code(s): R53.1 - WEAKNESS (2) Anemia Code(s): D64.9 - ANEMIA, UNSPECIFIED Qualifiers: Anemia type: unspecified type Qualified Code(s): D64.9 - Anemia, unspecified (3) Presence of stent in coronary artery in patient with coronary artery disease Code(s): I25.10 - ATHSCL HEART DISEASE OF [place] CORONARY ARTERY W/O ANG PCTRS; Z95.5 - PRESENCE OF CORONARY ANGIOPLASTY IMPLANT AND GRAFT (4) COPD (chronic obstructive pulmonary disease) Code(s): J44.9 - CHRONIC OBSTRUCTIVE PULMONARY DISEASE, UNSPECIFIED (5) NSTEMI (non-ST elevated myocardial infarction) Code(s): I21.4 - NON-ST ELEVATION (NSTEMI) MYOCARDIAL INFARCTION Assessment/Plan S/p PRBC Tx TO f/u H/H (pending AM labs) Cardion consult GI consult AM labs
[2019-03-25 08:08] LABS: ALBUMIN 2.9 g/dl (3.4-5.0); BILIRUBIN,TOTAL 2.2 mg/dL (0.2-1); BLOOD UREA NITROGEN 39.4 mg/dL (7-18); CALCIUM 8.1 mg/dL (8.5-10.1); CREATININE 1.4 mg/dL (0.55-1.3); POTASSIUM 4.2 mmol/L (3.5-5.1); TOT PROT 5.6 g/dl (6.4-8.2)
[2019-03-25] MEDS ORDERED: FUROSEMIDE 40 MG/4 ML INJECTABLE VIAL IVPUSH ONE (09:27)
[2019-03-25] MEDS: metoPROLOL SUCCINATE 25 MG TAB.SR.24H (FP) PO SCH (10:00)
[2019-03-25] MEDS ORDERED: PATIENT'S OWN MEDICATION (NON-FORMULARY) (Metformin Hcl [Glucophage] 1,000 MG) PO SCH (10:00)
[2019-03-25] MEDS: VALSARTAN 160 MG TABLET (UD) PO SCH (10:00)
[2019-03-25] MEDS ORDERED: PATIENT'S OWN MEDICATION (NON-FORMULARY) (Fluticasone Propionate [Flovent Diskus] 110 MCG) IH SCH (10:00)
[2019-03-25] MEDS: ASPIRIN 81 MG CHEWABLE TABLETS PO SCH (10:01)
[2019-03-25] MEDS: RANITIDINE HCL 150 MG TABLET (FP) PO SCH ×2 (10:01→22:47)
--- NOTE | 2019-03-25 11:08 | EKG ---
Test Reason : Blood Pressure : / mmHG Vent. Rate : 095 BPM Atrial Rate : 095 BPM P-R Int : 156 ms QRS Dur : 070 ms QT Int : 352 ms P-R-T Axes : 066 016 038 degrees QTc Int : 442 ms POOR DATA QUALITY, INTERPRETATION MAY BE ADVERSELY AFFECTED NORMAL SINUS RHYTHM POSSIBLE LEFT ATRIAL ENLARGEMENT WHEN COMPARED WITH ECG OF 03-MAR-2019 01:43, SINUS RHYTHM HAS REPLACED ECTOPIC ATRIAL RHYTHM T WAVE INVERSION NO LONGER EVIDENT IN INFERIOR LEADS Confirmed by RADHA MATHIS MD ([id number]) on 03/25/2019 11:07:46 AM Referred By: Confirmed By:RADHA MATHIS MD
[2019-03-25] MEDS ORDERED: FUROSEMIDE 40 MG/4 ML INJECTABLE VIAL ONE (15:17)
--- NOTE | 2019-03-25 16:08 | CON.CARD ---
Consult Consult Specialty:: Cardiology Referred by:: Dr. Duc Perez - History of Present Illness History of Present Illness: CHIEF COMPLAINT: 1. Exertional dyspnea. 2. Anemia. The patient is a 78-year-old [place] female with known case of coronary artery disease, angina pectoris status post PCI/stenting, history of recurring anemia, hypertension, hypertensive cardiovascular disease, noninsulin dependent diabetes mellitus, oxygen dependent COPD, history of hiatus hernia/ gastroesophageal reflux and history of tobacco abuse. Patient was seen in the office on 03/24/19 for a post-discharge followup, she did complain of generalized dyspnea there was no complaint of chest pain or discomfort. No complaint of shortness of breath, orthopnea, or paroxysmal nocturnal dyspnea. She said when she was on her way to her PCP's office she complained of dyspnea and generalized fatigue and her daughter who drove her to the PCP's office. PAST HISTORY: As mentioned in the history of present illness. SURGICAL HISTORY: Status post cholecystectomy and appendectomy. Status post removal of benign cyst from the left breast. Bilateral cataract extraction and intraocular lens implantation. Surgery for a fracture of the right upper extremity and shoulder. SOCIAL HISTORY: Has 3 daughters and 2 sons. One of the sons at the age of 25, he had apparently congenital heart disease that was operated when he was 18 years of age and had a cerebrovascular accident following a surgical procedure. A daughter at age 42 related to carcinoma of the lungs. She was a heavy smoker. Her other son has coronary artery disease and apparently has undergone coronary artery bypass grafting. Her is a diabetic, COPD and probably has dementia. The patient used to be a smoker for many years, had stopped 6 years ago but resumed smoking again and currently states she is smoking 5 to 6 cigarettes a day. Denies use of alcohol. Does have a cup of coffee. FAMILY HISTORY: Father at age 47. She does not know the cause of his . Mother at age 58 years. She was a diabetic and had chronic kidney disease. She in her sleep. She has 1 sister who is a diabetic. ALLERGIES: None reported. Active Medications Albuterol Sulfate (Ventolin Hfa Inhaler -) 2 puff IH Q6H PRN PRN Reason: SHORT OF BREATH/WHEEZING Aspirin (Asa -) 81 mg PO DAILY STEPH Last Admin: 03/25/19 10:01 Dose: 81 mg Insulin Aspart (Novolog Vial Sliding Scale -) 0 - 10 vial SQ ACHS [facility]; Protocol Last Admin: 03/25/19 06:13 Dose: 2 units Metformin HCl (Glucophage -) 1,000 mg PO ACBK [facility] Last Admin: 03/25/19 06:13 Dose: 1,000 mg Metoprolol Succinate (Toprol Xl -) 25 mg PO DAILY [facility] Mometasone Furoate (Asmanex 110mcg -) 1 puff IH BID [facility] Non-Formulary Medication (Nateglinide) 120 mg PO TID [facility] Pioglitazone HCl (Actos -) 15 mg PO ACBK [facility] Last Admin: 03/25/19 06:13 Dose: Not Given Ranitidine HCl (Zantac -) 150 mg PO BID [facility] Last Admin: 03/25/19 10:01 Dose: 150 mg Valsartan (Diovan -) 160 mg PO DAILY [facility] REVIEW OF SYSTEMS: Constitutional: No history of chills, fever, or night sweats. No history of unintentional weight loss. HEENT: No history of headaches, diplopia, blurred vision reported. No history of epistaxis, hoarseness, tinnitus, or deafness. Cardiovascular: See history of present illness, no history of chest pain or discomfort. Respiratory: See history of present illness. No history of hemoptysis or tuberculosis. Gastrointestinal: History of intermittent epigastric discomfort. No history of nausea, vomiting, melena, or hematemesis. No history of abdominal pain, early satiety, bloating, and no history of change in bowel habits. Neurological: No history of lightheadedness, dizziness, presyncope or syncope. No history of seizures or focal weakness. See history of present illness. Musculoskeletal: History of arthralgias involving the left hand. Genitourinary: No history of dysuria, frequency, hematuria, or urgency reported. Hematological/Lymphatics: History of anemia. No history of ecchymosis or overt bleeding. PHYSICAL EXAMINATION: General: 78-year-old alert female was in no acute distress. There was mild pallor, no cyanosis, clubbing or jaundice. Last Vital Signs Temp Pulse Resp BP Pulse Ox 98.2 F 75 22 H 87/42 L 98 03/25/19 10:00 03/25/19 10:00 03/25/19 10:00 03/25/19 10:00 03/25/19 00:00 Neck: Supple. No jugulovenous distention. Carotids were 2+, upstrokes were normal, no bruits were heard, and no thyromegaly was present. Heart: PMI was in the 5th intercostal space, no heaves or thrills. Heart sounds were slightly distant. S1 and S2 were normal. Ejection systolic murmur grade I/ was heard at the 2nd right intercostal space, murmur was nonradiating. No diastolic murmur or gallops were heard. Lungs: Clear on auscultation. Abdomen: Protuberant, soft and nontender. No hepatosplenomegaly or palpable masses were felt. Bowel sounds are present. No bruits were heard. Extremities: No calf tenderness or dependent edema, surgical scar over the left knee. Pulses were 2+, dorsalis pedis and posterior tibial pulses were weak. Laboratory Results - last 24 hr 03/24/19 03/24/19 03/24/19 15:20 15:20 15:20 WBC 7.8 RBC 2.87 L Hgb 7.6 L Hct 23.5 L D MCV 82.1 MCH 26.5 MCHC 32.2 RDW 18.1 H Plt Count 477 H D MPV 7.9 Absolute Neuts (auto) 6.3 Neutrophils % 81.6 D Lymphocytes % 12.6 D Monocytes % 4.7 Eosinophils % 0.7 Basophils % 0.4 Nucleated RBC % 0 PT with INR INR PTT (Actin FS) Sodium 138 Potassium 4.2 Chloride 99 Carbon Dioxide 33 H Anion Gap 6 L BUN 34.9 H Creatinine 1.2 Est GFR (CKD-EPI)AfAm 50.13 Est GFR (CKD-EPI)NonAf 43.25 POC Glucometer Random Glucose 129 H Calcium 8.9 Total Bilirubin 0.5 AST 87 H ALT 32 Alkaline Phosphatase 170 H Troponin I Total Protein 6.7 Albumin 3.5 Urine Color Urine Appearance Urine pH Ur Specific [place] Urine Protein Urine Glucose (UA) Urine Ketones Urine Blood Urine Nitrite Urine Bilirubin Urine Urobilinogen Ur Leukocyte Esterase Urine WBC (Auto) Urine RBC (Auto) Urine Casts (Auto) U Epithel Cells (Auto) Urine Bacteria (Auto) Blood Type AB POSITIVE Antibody Screen Negative Crossmatch See Detail 03/24/19 03/24/19 03/24/19 15:20 15:20 17:38 WBC RBC Hgb Hct MCV MCH MCHC RDW Plt Count MPV Absolute Neuts (auto) Neutrophils % Lymphocytes % Monocytes % Eosinophils % Basophils % Nucleated RBC % PT with INR 13.20 H INR 1.12 H PTT (Actin FS) 30.5 Sodium Potassium Chloride Carbon Dioxide Anion Gap BUN Creatinine Est GFR (CKD-EPI)AfAm Est GFR (CKD-EPI)NonAf POC Glucometer Random Glucose Calcium Total Bilirubin AST ALT Alkaline Phosphatase Troponin I < 0.02 Total Protein Albumin Urine Color Yellow Urine Appearance Clear Urine pH 6.5 Ur Specific [place] 1.007 L Urine Protein Negative Urine Glucose (UA) Negative Urine Ketones Negative Urine Blood Negative Urine Nitrite Negative Urine Bilirubin Negative Urine Urobilinogen 0.2 Ur Leukocyte Esterase Trace Urine WBC (Auto) 4 Urine RBC (Auto) 0 Urine Casts (Auto) 1 U Epithel Cells (Auto) 2.3 Urine Bacteria (Auto) 34.7 Blood Type Antibody Screen Crossmatch 03/25/19 03/25/19 03/25/19 05:40 06:09 06:09 WBC 18.8 H RBC 3.02 L Hgb 7.9 L Hct 24.5 L MCV 81.2 MCH 26.1 MCHC 32.1 RDW 17.5 H Plt Count 371 D MPV 7.8 Absolute Neuts (auto) Neutrophils % Lymphocytes % Monocytes % Eosinophils % Basophils % Nucleated RBC % PT with INR INR PTT (Actin FS) Sodium 142 Potassium 4.2 Chloride 103 Carbon Dioxide 33 H Anion Gap 6 L BUN 39.4 H Creatinine 1.4 H Est GFR (CKD-EPI)AfAm 41.61 Est GFR (CKD-EPI)NonAf 35.90 POC Glucometer 204 Random Glucose 190 H Calcium 8.1 L Total Bilirubin 2.2 H AST 1161 H ALT 512 H Alkaline Phosphatase 457 H Troponin I Total Protein 5.6 L Albumin 2.9 L Urine Color Urine Appearance Urine pH Ur Specific [place] Urine Protein Urine Glucose (UA) Urine Ketones Urine Blood Urine Nitrite Urine Bilirubin Urine Urobilinogen Ur Leukocyte Esterase Urine WBC (Auto) Urine RBC (Auto) Urine Casts (Auto) U Epithel Cells (Auto) Urine Bacteria (Auto) Blood Type Antibody Screen Crossmatch Chest X-ray Dated: 03/24/19 Single view of the chest has been submitted. Since 01/22/2019, there is still some prominence of the denia with large heart, unfolded aorta and some atelectatic changes/density in the right midlung field. There is a scoliosis and previous right humeral trauma with hardware stabilization. Correlation recommended. ECG: Dated 03/24/19 Technically suboptimal study. Baseline artifacts are recorded. Sinus rhythm with intra-atrial conduction abnormality. Nonspecific ST and T-wave abnormalities. IMPRESSION: 1. Anemia etiology: a). Most likely related to GI blood loss. 2.Coronary artery disease, status post percutaneous coronary intervention/ stenting, clinical presentation and lab findings consistent with acute coronary syndrome. 3. Chronic obstructive pulmonary disease, oxygen dependent. 4. Noninsulin dependent diabetes mellitus. 5. Hypercholesterolemia. 6. Status post cerebrovascular accident without residual sequelae. 7. Hypertension, currently normotensive. 8. History of tobacco abuse. 9. History of hiatus hernia and gastroesophageal reflux disease. 10. Poor compliance. RECOMMENDATION: 1. Patient is scheduled to receive a blood transfusion. 2. Continue medications as outlined. 3. Consider temporarily discontinuing Aspirin. 4. GI evaluation and is scheduled to have a colonoscopy. 5. Followup CBC and BMP. 6. Cessation of smoking. Prognosis guarded. Thank you for your referral. NEIL KRAMER M.D. 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 numbness) Cardio/Vascular: Yes: CAD, HTN, [place], Hyperlipdemia Pulmonary: Yes: COPD Gastrointestinal: Yes: Constipation, Hiatal Hernia Renal/: Yes: Renal Inusuff ...: No Psych: Yes: Depression Endocrine: Yes: Diabetes Mellitus (with diabetic retinopathy ( had interventions ) and nephropathy ) - Past Surgical History Past Surgical History: Yes: Appendectomy, Tubal Ligation, Colonoscopy, Upper Endoscopy, Breast Biopsy, Cholecystectomy - Alcohol/Substance Use Hx Alcohol Use: No History of Substance Use: reports: None - Smoking History Smoking history: Current every day smoker Have you smoked in the past 12 months: No Aproximately how many cigarettes per day: 6 If you are a former smoker, when did you quit?: 6 years ago - Social History Usual Living Arrangement: With Spouse ADL: Independent 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 History of Recent Travel: No Home Medications - Allergies Allergies/Adverse Reactions: Allergies Allergy/AdvReac Type Severity Reaction Status Date / Time No Known Allergies Allergy Verified 03/24/19 14:36 - Home Medications Home Medications: Ambulatory Orders RX: Aspirin [ASA -] 81 mg PO DAILY 04/12/17 RX: Metoprolol Succinate [Toprol XL -] 25 mg PO DAILY 04/12/17 RX: Nateglinide [Starlix (Nf) -] 120 mg PO TID 04/12/17 RX: Olmesartan Medoxomil [Benicar -] 20 mg PO DAILY 04/12/17 RX: Albuterol Sulfate Inhaler - [Ventolin HFA Inhaler -] 1 - 2 inh PO Q4H PRN RX: Pioglitazone HCl 15 mg PO DAILY 04/28/18 RX: Ranitidine HCl 150 mg PO BID 04/28/18 Ferrous Sulfate [Feosol] 325 mg PO DAILY 02/15/19 Fluticasone Propionate [Flovent Diskus] 110 mcg IH BID 03/24/19 Metformin HCl [Glucophage] 1,000 mg PO DAILY 03/24/19 Family Disease History - Family Disease History Family Disease History: Diabetes: Mother ( unknown cause), Sister, Son, Heart Disease: Son, [place]: Daughter ( lung cancer), Other: Father ( in his 40s of bleeding ulcer) Vital Signs: Vital Signs Temperature 98.2 F 03/25/19 10:00 Pulse Rate 75 03/25/19 10:00 Respiratory Rate 22 H 03/25/19 10:00 Blood Pressure 87/42 L 03/25/19 10:00 O2 Sat by Pulse Oximetry (%) 98 03/25/19 00:00 - Other Data Labs, Other Data: CBC, BMP 03/25/19 06:09 03/25/19 06:09 INR, PTT INR 1.12 (0.83-1.09) H 03/24/19 15:20 Troponin, BNP 03/24/19 15:20 Troponin I < 0.02 Troponin, BNP 03/24/19 15:20 Troponin I < 0.02
[2019-03-25] MEDS ORDERED: PIPERACILLIN/TAZOB 3.375 GM 3.375 GM in DEXTROSE 5%-WATER - 50 ML IVPB SCH (16:15)
--- NOTE | 2019-03-25 16:34 | CON.GI ---
Consult Consult Specialty:: GI: For Dr. Feng who resumes care Thursday 03/29 Referred by:: Dr. Bisi Perez Reason for Consultation:: Anemia - History of Present Illness Chief Complaint: Weakness History of Present Illness: 78F admitted for evaluation of Weakness. Has h/o anemia. Hgb was noted to be 7.8. She was transfused 2 U PRBC. She has a colonoscopy planned with Dr. Feng in April. She complains of intermittent upper abdominal pain "for some time now" that does not seem to worsen after meals. She had an upper endoscopy with Dr. Brooke in the past. Liver chemistries marcia significantly from admission as did her WBC count. She is S/P cholecystectmy multiple years prior. She denies nausea, vomiting, rectal bleeding or melena. There is no family history of clolrectal cancer or other GI malignancy. 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 (residual left lower lip numbness) Cardio/Vascular: Yes: CAD, HTN, [place], Hyperlipdemia Pulmonary: Yes: COPD Gastrointestinal: Yes: Constipation, Hiatal Hernia Renal/: Yes: Renal Inusuff ...: No Psych: Yes: Depression Endocrine: Yes: Diabetes Mellitus (with diabetic retinopathy ( had interventions ) and nephropathy ) - Past Surgical History Past Surgical History: Yes: Appendectomy, Breast Biopsy, Cholecystectomy (Open) , Colonoscopy, Joint Replacement (left knee), Tubal Ligation, Upper Endoscopy - Alcohol/Substance Use Hx Alcohol Use: No History of Substance Use: reports: None - Smoking History Smoking history: Former smoker Have you smoked in the past 12 months: No Aproximately how many cigarettes per day: 6 If you are a former smoker, when did you quit?: 6 years ago - Social History Usual Living Arrangement: With Spouse ADL: Independent 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year[place] 60 years prior History of Recent Travel: No Home Medications - Allergies Allergies/Adverse Reactions: Allergies Allergy/AdvReac Type Severity Reaction Status Date / Time No Known Allergies Allergy Verified 03/24/19 14:36 - Home Medications Home Medications: Ambulatory Orders Aspirin [ASA -] 81 mg PO DAILY 04/12/17 Metoprolol Succinate [Toprol XL -] 25 mg PO DAILY 04/12/17 Nateglinide [Starlix (Nf) -] 120 mg PO TID 04/12/17 Olmesartan Medoxomil [Benicar -] 20 mg PO DAILY 04/12/17 Albuterol Sulfate Inhaler - [Ventolin HFA Inhaler -] 1 - 2 inh PO Q4H PRN Pioglitazone HCl 15 mg PO DAILY 04/28/18 Ranitidine HCl 150 mg PO BID 04/28/18 Ferrous Sulfate [Feosol] 325 mg PO DAILY 02/15/19 Fluticasone Propionate [Flovent Diskus] 110 mcg IH BID 03/24/19 Metformin HCl [Glucophage] 1,000 mg PO DAILY 03/24/19 Family Disease History - Family Disease History Family Disease History: Diabetes: Mother ( unknown cause), Sister, Son, Heart Disease: Son, [place]: Daughter ( lung cancer), Other: Father ( in his 40s of bleeding ulcer) Review of Systems - Review of Systems Constitutional: reports: Weakness. denies: Diaphoresis Cardiovascular: denies: Chest Pain Respiratory: reports: SOB (Chronic) Gastrointestinal: denies: Melena, Nausea, Rectal Bleeding, Vomiting Physical Exam-GI Vital Signs: Vital Signs Temperature 100.1 rectal 03/25/19 1600 Pulse Rate 03/25/19 1600 Respiratory Rate 03/25/19 1600 Blood Pressure 03/25/19 1600 O2 Sat by Pulse Oximetry (%) 03/25/19 1600 Constitutional: Yes: Calm Eyes: No: Sclera Icterus Cardiovascular: Yes: Regular Rate and Rhythm. No: Murmur Respiratory: Yes: CTA Bilaterally Gastrointestinal Inspection: Yes: Scars (RUQ scar, faint RLQ scar) ...Auscultate: Yes: Normoactive Bowel Sounds ...Palpate: Yes: Soft, Tenderness (Mild TTP epigastrium and RUQ). No: Hepatomegaly ...Percussion: No: Tympanitic ...Rectal Exam: Yes: Other (No exteral lesions, no masses, light brown stool, guaiac negative.) Edema: No (No LE edema) Neurological: Yes: Alert Labs: CBC, BMP 03/25/19 06:09 03/25/19 06:09 INR, PTT INR 1.12 (0.83-1.09) H 03/24/19 15:20 Hepatic Panel Total Bilirubin 2.2 mg/dL (0.2-1) H 03/25/19 06:09 AST 1161 U/L (15-37) H 03/25/19 06:09 ALT 512 U/L (13-61) H 03/25/19 06:09 Alkaline Phosphatase 457 U/L (45-117) H 03/25/19 06:09 Albumin 2.9 g/dl (3.4-5.0) L 03/25/19 06:09 Problem List - Problems (1) Abnormal liver enzymes Assessment/Plan: Given acute rise, concomitant leukocytosis, mixed cholestatic/hepatocellular pattern, history of intermittent upper abdominal pain along with upper abdominal /RUQ tendeness noted on today's exam, concern would be biliary tract source such as retained CBD stone and developing biliary sepsis. I explained this to Miss Davies. I explained my concerns to her daughter Lainey Max via telephone tonight as well. As part of work-up and treatment: Ms. Davies was made NPO IV antibiotics were initiated (zosyn) and I spoke with ID Dr. King who will see the patient Repeat labs as well as blood cultures ordered for tonight MRCP ordered to further evaluate the biliary tract I also discussed the possibility of ERCP. We discussed potential risks of the procedure like but not limited to bleeding, perforation requiring surgery to repair, infection, sedation medication effects, pancreatitis all of which could be potentially life threatening. Both Ms. Davies and Her daughter Lainey were in agreement to have the procedure performed if it was felt to be clinically indicated. Per her daughter Lainey, Ms. Garcia may be on generic Plavix (not listed on her outpatient meds). Code(s): R74.8 - ABNORMAL LEVELS OF OTHER SERUM ENZYMES (2) Anemia Assessment/Plan: to be evaluated once above issues resolved. Consider heme evaluation. guaiac negative on exam Code(s): D64.9 - ANEMIA, UNSPECIFIED Qualifiers: Anemia type: unspecified type Qualified Code(s): D64.9 - Anemia, unspecified
--- NOTE | 2019-03-25 17:27 | PN ---
Progress Note (short form) - Note Progress Note: ID consult dictated imp/reccd admitted for anemia- s/p 2 units prbs had fever to 101.8 overnight now with midepigastric pain, leukocytosis, and abnl lfts cxray with atelectasis ua is negative suspected biliary sepsis agree with MRCP blood cultures zosyn oxygen dependent copd still smoking cad s/p stent Problem List - Problems (1) Biliary sepsis Code(s): K83.09 - OTHER CHOLANGITIS (2) COPD (chronic obstructive pulmonary disease) Code(s): J44.9 - CHRONIC OBSTRUCTIVE PULMONARY DISEASE, UNSPECIFIED (3) CAD (coronary artery disease) Code(s): I25.10 - ATHSCL HEART DISEASE OF [place] CORONARY ARTERY W/O ANG PCTRS
--- NOTE | 2019-03-25 17:57 | CONS ---
DATE OF CONSULTATION: DATE OF DICTATION: 03/25/2019 INFECTIOUS DISEASE CONSULTATION REQUESTING PHYSICIAN: Duc Perez M.D. HISTORY OF PRESENT ILLNESS: This is a 78-year-old woman with coronary artery disease and hypertension. She has COPD that is oxygen dependent. She is an active smoker. She smokes 5 to 6 cigarettes a day. She was admitted through the emergency room yesterday with worsening generalized weakness and anemia. She was found to have a hemoglobin of 7 and referred to the ER. She had a transfusion a week ago for chronic anemia, and she is scheduled to have an endoscopy with Dr. Feng. She presented with these complaints and was admitted for blood transfusion. Overnight she had fever of 101.9. Today she was noted to have an elevated white count of 18,000 and abnormal liver function tests. She reports having some midepigastric pain. I am asked to see her for further evaluation. She denies any change in her breathing status. She had a bowel movement yesterday. She denies any nausea or vomiting. ALLERGIES: She has no known drug allergies.* MEDICATIONS: Her medications include aspirin, metoprolol, Starlix, Benicar, Ventolin, rosiglitazone, ranitidine, ferrous sulfate, fluticasone and metformin. PAST MEDICAL HISTORY: Notable for anemia, asthma, coronary artery disease, emphysema, CVA. She has a history of diabetes, hiatal hernia, hypertension, hypercholesterolemia. PAST SURGICAL HISTORY: Notable for stent, cholecystectomy and appendectomy. She has history of removal of a benign cyst from her left breast. She has had bilateral cataract surgery and fracture of the right upper extremity and shoulder. She has had surgical repair of this. FAMILY HISTORY: Notable for father at age 47; she does not know of what. Mother at age 58; she had diabetes and chronic kidney disease. She has a sister who is diabetic. She has children. She lost a child to lung cancer. She has a son with coronary artery disease, and one of her sons had congenital heart disease and is . REVIEW OF SYSTEMS: Notable for the midepigastric pain. PHYSICAL EXAMINATION: Vital Signs: Her current temperature is 98.2. Pulse is 75. Blood pressure is 87/42. Respiratory rate of 22. She is on nasal cannula. She is mildly tachypneic, although she states this is her baseline. HEENT: She is normocephalic. Her eyes are anicteric. Neck: Supple. Lungs: Clear to auscultation. She has diminished breath sounds at the bases. Heart: Regular rate and rhythm. Abdomen: Soft. She had midepigastric pain on palpation. She has no right upper quadrant discomfort. Extremities: Without edema. DIAGNOSTIC STUDIES: Her labs are notable for BUN of 39 and creatinine 1.4. Total bilirubin of 2.2, with AST of 1161, ALT of 512, and an alkaline phosphatase of 457. White count is 18.8, with a hemoglobin of 7.9 and platelets of 371. Urinalysis is negative. SUMMARY: This is a 78-year-old woman admitted for a transfusion, but noted to have fever, abnormal liver function tests and leukocytosis, concern for biliary sepsis. She is scheduled for magnetic resonance cholangiopancreatography. We will obtain blood cultures and would start Zosyn to cover her for biliary tract disease. She has some atelectasis on chest x-ray. She has no clear infiltrate. Urinalysis is unremarkable. Suspected source is most likely her biliary tree. Would treat her, as stated before, with Zosyn, with further recommendations to follow. MRCP has been ordered. Eladio [id number]
[2019-03-25] MEDS ORDERED: DEXTROSE 5%-WATER - 50 ML IVPB ONE (18:09)
[2019-03-25] MEDS ORDERED: PIPERACILLIN/TAZOBACTAM 3.375 GM VIAL IVPB ONE (18:09)
[2019-03-25] MEDS: PIPERACILLIN/TAZOB 3.375 GM 3.375 GM in DEXTROSE 5%-WATER - 50 ML IVPB SCH (18:16)
[2019-03-25] MEDS: MOMETASONE FUROATE 110 MCG/IH INHALER IH SCH ×2 (18:29→22:54)
[2019-03-25 21:52] LABS: EOS % 0.2 % (0-4.5); HEMATOCRIT 31.9 % (32.4-45.2); HEMOGLOBIN 10.2 GM/dL (10.7-15.3); LYMPH % 2.4 % (8-40); MCH 26.2 pg (25.7-33.7); MCHC 31.8 g/dl (32.0-36.0); MEAN CELL VOLUME 82.3 fl (80-96); MEAN PLT VOLUME 8.1 fl (7.5-11.1); NEUT % 94.4 % (42.8-82.8); PLATELET COUNT 355 K/MM3 (134-434); RBC 3.88 M/mm3 (3.60-5.2); RDW 17.3 % (11.6-15.6); WHITE BLOOD COUNT 18.4 K/mm3 (4.0-10.0)
[2019-03-25 22:21] LABS: ALBUMIN 2.8 g/dl (3.4-5.0); BILIRUBIN,TOTAL 4.1 mg/dL (0.2-1); BLOOD UREA NITROGEN 42.9 mg/dL (7-18); CALCIUM 8.4 mg/dL (8.5-10.1); CREATININE 1.3 mg/dL (0.55-1.3); POTASSIUM 4.4 mmol/L (3.5-5.1); TOT PROT 5.7 g/dl (6.4-8.2)
[2019-03-26] MEDS ORDERED: PIPERACILLIN/TAZOBACTAM 3.375 GM VIAL IVPB ONE ×3 (02:00→18:56)
[2019-03-26] MEDS ORDERED: DEXTROSE 5%-WATER - 50 ML IVPB ONE ×3 (02:01→18:56)
[2019-03-26] MEDS: PIPERACILLIN/TAZOB 3.375 GM 3.375 GM in DEXTROSE 5%-WATER - 50 ML IVPB SCH ×4 (04:00→19:05)
[2019-03-26] MEDS: metFORMIN HCL 500 MG TABLET (FP) PO SCH (06:16)
[2019-03-26] MEDS: INSULIN SLIDING SCALE (NOVOLOG) 1 VIAL SQ SCH ×4 (06:16→22:29)
[2019-03-26] MEDS: PIOGLITAZONE HCL 15 MG TABLET (FP) PO SCH (06:16)
[2019-03-26 07:46] LABS: HEMATOCRIT 30.6 % (32.4-45.2); MCH 26.5 pg (25.7-33.7); MCHC 32.7 g/dl (32.0-36.0); MEAN CELL VOLUME 81.1 fl (80-96); MEAN PLT VOLUME 8.1 fl (7.5-11.1); PLATELET COUNT 347 K/MM3 (134-434); RBC 3.77 M/mm3 (3.60-5.2); RDW 17.3 % (11.6-15.6); WHITE BLOOD COUNT 15.3 K/mm3 (4.0-10.0)
[2019-03-26 07:48] LABS: ALBUMIN 2.5 g/dl (3.4-5.0); BILIRUBIN,TOTAL 2.7 mg/dL (0.2-1); CALCIUM 7.9 mg/dL (8.5-10.1); CREATININE 1.3 mg/dL (0.55-1.3); TOT PROT 5.3 g/dl (6.4-8.2)
[2019-03-26] MEDS: ASPIRIN 81 MG CHEWABLE TABLETS PO SCH (09:45)
[2019-03-26] MEDS: metoPROLOL SUCCINATE 25 MG TAB.SR.24H (FP) PO SCH (09:45)
[2019-03-26] MEDS: RANITIDINE HCL 150 MG TABLET (FP) PO SCH ×2 (09:45→22:29)
[2019-03-26] MEDS: MOMETASONE FUROATE 110 MCG/IH INHALER IH SCH ×2 (09:45→22:30)
[2019-03-26] MEDS: VALSARTAN 160 MG TABLET (UD) PO SCH (09:45)
--- NOTE | 2019-03-26 10:00 | PN ---
Progress Note (short form) - Note Progress Note: The patient is a 78-year-old [place] female with known case of coronary artery disease, angina pectoris status post PCI/stenting, history of recurring anemia, hypertension, hypertensive cardiovascular disease, noninsulin dependent diabetes mellitus, oxygen dependent COPD, history of hiatus hernia/ gastroesophageal reflux and history of tobacco abuse. Patient scheduled for ERCP, because of fever ongoing lethargy poor appetite and abnormal LFTs. had received blood transfusion ALLERGIES: None reported. Active Medications Albuterol Sulfate (Ventolin Hfa Inhaler -) 2 puff IH Q6H PRN PRN Reason: SHORT OF BREATH/WHEEZING Aspirin (Asa -) 81 mg PO DAILY [facility] Last Admin: 03/26/19 09:45 Dose: 81 mg Piperacillin Sod/Tazobactam (Sod 3.375 gm/ Dextrose) 50 mls @ 100 mls/hr IVPB Q8H-IV [facility]; Protocol Last Admin: 03/26/19 09:46 Dose: 100 mls/hr Insulin Aspart (Novolog Vial Sliding Scale -) 0 - 10 vial SQ ACHS [facility]; Protocol Last Admin: 03/26/19 06:16 Dose: Not Given Metformin HCl (Glucophage -) 1,000 mg PO ACBK [facility] Last Admin: 03/26/19 06:16 Dose: Not Given Metoprolol Succinate (Toprol Xl -) 25 mg PO DAILY [facility] Last Admin: 03/26/19 09:45 Dose: 25 mg Mometasone Furoate (Asmanex 110mcg -) 1 puff IH BID [facility] Last Admin: 03/26/19 09:45 Dose: 1 puff Non-Formulary Medication (Nateglinide) 120 mg PO TID [facility] Pioglitazone HCl (Actos -) 15 mg PO ACBK [facility] Last Admin: 03/26/19 06:16 Dose: Not Given Ranitidine HCl (Zantac -) 150 mg PO BID [facility] Last Admin: 03/26/19 09:45 Dose: 150 mg Valsartan (Diovan -) 160 mg PO DAILY [facility] Last Admin: 03/26/19 09:45 Dose: 160 mg PHYSICAL EXAMINATION: General: 78-year-old alert female was in no acute distress. Mild pallor, no cyanosis, clubbing or jaundice. Last Vital Signs Temp Pulse Resp BP Pulse Ox 98.9 F 88 20 94/49 L 95 03/26/19 06:00 03/26/19 06:00 03/26/19 06:00 03/26/19 06:00 03/25/19 20:24 Neck: Supple. No jugulovenous distention. Carotids were 2+, upstrokes were normal, no bruits were heard, and no thyromegaly was present. Heart: PMI was in the 5th intercostal space, no heaves or thrills. Heart sounds were slightly distant. S1 and S2 were normal. Ejection systolic murmur grade I/ was heard at the 2nd right intercostal space, murmur was nonradiating. No diastolic murmur or gallops were heard. Lungs: Clear on auscultation. Abdomen: Protuberant, soft and nontender. No hepatosplenomegaly or palpable masses were felt. Bowel sounds are present. No bruits were heard. Extremities: No calf tenderness or dependent edema, surgical scar over the left knee. Pulses were 2+, dorsalis pedis and posterior tibial pulses were weak. Laboratory Results - last 24 hr 03/25/19 03/25/19 03/25/19 16:58 21:20 21:20 WBC 18.4 H RBC 3.88 Hgb 10.2 L Hct 31.9 L D MCV 82.3 MCH 26.2 MCHC 31.8 L RDW 17.3 H Plt Count 355 MPV 8.1 Absolute Neuts (auto) 17.4 H Total Counted 100 Neutrophils % 94.4 H Neutrophils % (Manual) 96.0 H Lymphocytes % 2.4 L D Lymphocytes % (Manual) 2.0 L Monocytes % 3.0 L Monocytes % (Manual) 2 L Eosinophils % 0.2 Basophils % 0.0 Nucleated RBC % 0 Sodium 140 Potassium 4.4 Chloride 101 Carbon Dioxide 32 Anion Gap 7 L BUN 42.9 H Creatinine 1.3 Est GFR (CKD-EPI)AfAm 45.50 Est GFR (CKD-EPI)NonAf 39.26 POC Glucometer 85 Random Glucose 86 Calcium 8.4 L Total Bilirubin 4.1 H AST 547 H ALT 375 H Alkaline Phosphatase 419 H Total Protein 5.7 L Albumin 2.8 L 03/25/19 03/26/19 03/26/19 22:06 05:51 06:17 WBC 15.3 H RBC 3.77 Hgb 10.0 L Hct 30.6 L MCV 81.1 MCH 26.5 MCHC 32.7 RDW 17.3 H Plt Count 347 MPV 8.1 Absolute Neuts (auto) Total Counted Neutrophils % Neutrophils % (Manual) Lymphocytes % Lymphocytes % (Manual) Monocytes % Monocytes % (Manual) Eosinophils % Basophils % Nucleated RBC % Sodium Potassium Chloride Carbon Dioxide Anion Gap BUN Creatinine Est GFR (CKD-EPI)AfAm Est GFR (CKD-EPI)NonAf POC Glucometer 95 82 Random Glucose Calcium Total Bilirubin AST ALT Alkaline Phosphatase Total Protein Albumin 03/26/19 03/26/19 06:17 12:19 WBC RBC Hgb Hct MCV MCH MCHC RDW Plt Count MPV Absolute Neuts (auto) Total Counted Neutrophils % Neutrophils % (Manual) Lymphocytes % Lymphocytes % (Manual) Monocytes % Monocytes % (Manual) Eosinophils % Basophils % Nucleated RBC % Sodium 141 Potassium 4.0 Chloride 102 Carbon Dioxide 31 Anion Gap 8 BUN 44.0 H Creatinine 1.3 Est GFR (CKD-EPI)AfAm 45.50 Est GFR (CKD-EPI)NonAf 39.26 POC Glucometer 93 Random Glucose 74 Calcium 7.9 L Total Bilirubin 2.7 H AST 347 H ALT 281 H Alkaline Phosphatase 354 H Total Protein 5.3 L Albumin 2.5 L IMPRESSION: 1. Anemia etiology: a). Most likely related to GI blood loss. 2.Coronary artery disease, status post percutaneous coronary intervention/ stenting, clinical presentation and lab findings consistent with acute coronary syndrome. 3. Chronic obstructive pulmonary disease, oxygen dependent. 4. Noninsulin dependent diabetes mellitus. 5. Possible cholangitis/sepsis. 6. Status post cerebrovascular accident without residual sequelae. 7. Hypertension, currently normotensive. 8. History of tobacco abuse. 9. History of hiatus hernia and gastroesophageal reflux disease. 10. Dyslipidemia. 11. Poor compliance. RECOMMENDATION: 1. Close cardiopulmonary monitoring. 2. Continue current medications. 3. F/u CBC, Prognosis guarded. Doug KRAMER M.D.
--- NOTE | 2019-03-26 12:50 | PN ---
Progress Note (short form) - Note Progress Note: less fever less sob Vital Signs Period Temp Pulse Resp BP Sys/Burrell Pulse Ox Last 24 Hr 97.6 F-100.1 F 76-99 20-22 94-136/49-76 84-96 cor-rrr lungs clear abd soft,nt ext no edema +beatty CBC, BMP 03/26/19 06:17 03/26/19 06:17 Microbiology 03/25/19 21:30 Blood - Peripheral Venous Blood Culture - Preliminary Pending Organism MRI-choledocholithiasis imp/reccd biliary sepsis gram negative bacteremia choledocholithiasis suspected biliary sepsis continue zosyn for ercp today oxygen dependent copd still smoking cad s/p stent
[2019-03-26] MEDS ORDERED: LACTATED RINGERS SOLUTION 1,000 ML IV SCH (15:30)
[2019-03-26] MEDS ORDERED: IOHEXOL 300 MG/ML INFUS..BTL IJ ONE (16:30)
[2019-03-26] MEDS ORDERED: EPINEPHrine 1:10,000 (P-F SYR) 1 MG/10 ML DISP.SYRIN SQ ONE (16:54)
--- NOTE | 2019-03-26 17:44 | PN ---
Progress Note (short form) - Note Progress Note: GI Procedure NOte: Please see ERCP report. Marjorie has a very large stone that I could not extract as bleeding occurred while attempting to do so. The bleeding was controlled by stent insertion and epinephrine injection. She will need to go to a tertiary care [facility] with an ultrasonic lithotriptor to manage this stone. I discussed the plan with her and Dr Perez. Dr Feng will return on Friday.
[2019-03-26] MEDS ORDERED: EPINEPHrine 1:10,000 (P-F SYR) 1 MG/10 ML DISP.SYRIN ONE (17:46)
[2019-03-26] MEDS ORDERED: LACTATED RINGERS SOLUTION 1,000 ML/1,000 ML INFUS.BAG IV SCH ×2 (18:00→23:00)
--- NOTE | 2019-03-26 18:01 | PN ---
Progress Note, Physician History of Present Illness: (Pt is s/p ERCP) Pt w/o abd pain, nausea, vomitting. Pt w/o SOB, CP, palpitations. - Current Medication List Current Medications: Active Medications Albuterol Sulfate (Ventolin Hfa Inhaler -) 2 puff IH Q6H PRN PRN Reason: SHORT OF BREATH/WHEEZING Aspirin (Asa -) 81 mg PO DAILY [facility] Last Admin: 03/26/19 09:45 Dose: 81 mg Fentanyl (Sublimaze Injection -) 25 mcg IVPUSH [id number] PRN PRN Reason: PAIN-PACU ORDER X 4 DOSES ONLY Piperacillin Sod/Tazobactam (Sod 3.375 gm/ Dextrose) 50 mls @ 100 mls/hr IVPB Q8H-IV [facility]; Protocol Last Admin: 03/26/19 09:46 Dose: 100 mls/hr Lactated Ringer's (Lactated Ringers Solution) 1,000 ml in 1,000 mls @ 200 mls/ hr IV ASDIR [facility] Stop: 03/26/19 23:00 Lactated Ringer's (Lactated Ringers Solution) 1,000 ml in 1,000 mls @ 175 mls/ hr IV ASDIR [facility] Stop: 03/27/19 05:00 Lactated Ringer's (Lactated Ringers Solution) 1,000 ml in 1,000 mls @ 150 mls/ hr IV ASDIR [facility] Stop: 03/27/19 11:00 Lactated Ringer's (Lactated Ringers Solution) 1,000 ml in 1,000 mls @ 125 mls/ hr IV ASDIR [facility] Insulin Aspart (Novolog Vial Sliding Scale -) 0 - 10 vial SQ ACHS [facility]; Protocol Last Admin: 03/26/19 12:40 Dose: Not Given Metformin HCl (Glucophage -) 1,000 mg PO ACBK [facility] Last Admin: 03/26/19 06:16 Dose: Not Given Metoprolol Succinate (Toprol Xl -) 25 mg PO DAILY [facility] Last Admin: 03/26/19 09:45 Dose: 25 mg Mometasone Furoate (Asmanex 110mcg -) 1 puff IH BID [facility] Last Admin: 03/26/19 09:45 Dose: 1 puff Non-Formulary Medication (Nateglinide) 120 mg PO TID [facility] Pioglitazone HCl (Actos -) 15 mg PO ACBK [facility] Last Admin: 03/26/19 06:16 Dose: Not Given Ranitidine HCl (Zantac -) 150 mg PO BID [facility] Last Admin: 03/26/19 09:45 Dose: 150 mg Valsartan (Diovan -) 160 mg PO DAILY [facility] Last Admin: 03/26/19 09:45 Dose: 160 mg - Objective Vital Signs: Vital Signs Temperature 97.6 F 03/26/19 09:00 Pulse Rate 99 H 03/26/19 09:00 Respiratory Rate 20 03/26/19 09:15 Blood Pressure 116/56 L 03/26/19 09:00 O2 Sat by Pulse Oximetry (%) 96 03/26/19 09:15 Constitutional: Yes: No Distress, Calm Cardiovascular: Yes: Regular Rate and Rhythm, S1, S2 Respiratory: Yes: Regular, CTA Bilaterally, Other (coarse BS) Gastrointestinal: Yes: Normal Bowel Sounds, Soft. No: Tenderness Edema: No Labs: CBC, BMP 03/26/19 06:17 03/26/19 06:17 INR, PTT INR 1.12 (0.83-1.09) H 03/24/19 15:20 - ....Imaging MRI: Report Reviewed Problem List - Problems (1) Weakness Code(s): R53.1 - WEAKNESS (2) Anemia Code(s): D64.9 - ANEMIA, UNSPECIFIED Qualifiers: Anemia type: unspecified type Qualified Code(s): D64.9 - Anemia, unspecified (3) Presence of stent in coronary artery in patient with coronary artery disease Code(s): I25.10 - ATHSCL HEART DISEASE OF [place] CORONARY ARTERY W/O ANG PCTRS; Z95.5 - PRESENCE OF CORONARY ANGIOPLASTY IMPLANT AND GRAFT (4) COPD (chronic obstructive pulmonary disease) Code(s): J44.9 - CHRONIC OBSTRUCTIVE PULMONARY DISEASE, UNSPECIFIED (5) NSTEMI (non-ST elevated myocardial infarction) Code(s): I21.4 - NON-ST ELEVATION (NSTEMI) MYOCARDIAL INFARCTION (6) Choledocholithiasis Code(s): K80.50 - CALCULUS OF BILE DUCT W/O CHOLANGITIS OR CHOLECYST W/O OBST (7) Bacteremia due to Gram-negative bacteria Code(s): R78.81 - BACTEREMIA (8) Abnormal liver enzymes Code(s): R74.8 - ABNORMAL LEVELS OF OTHER SERUM ENZYMES (9) Adrenal hyperplasia Code(s): E27.8 - OTHER SPECIFIED DISORDERS OF ADRENAL GLAND (10) Biliary sepsis Code(s): K83.09 - OTHER CHOLANGITIS (11) Symptomatic anemia Code(s): D64.9 - ANEMIA, UNSPECIFIED Assessment/Plan S/p PRBC Tx, 2 units Cardio, GI, ID consults are appreciated IV abtx s/p ERCP, pt's findings were d/w Dr. Lori Alonso; would need GI outpt f/u AM labs. Clear liquid diet. Pt's condition was d/w her nurse.
[2019-03-26 18:17] LABS: BASO % 0.2 % (0-2.0); EOS % 0.7 % (0-4.5); HEMATOCRIT 33.4 % (32.4-45.2); HEMOGLOBIN 10.6 GM/dL (10.7-15.3); LYMPH % 7.7 % (8-40); MCH 26.1 pg (25.7-33.7); MCHC 31.8 g/dl (32.0-36.0); MEAN CELL VOLUME 82.2 fl (80-96); MEAN PLT VOLUME 8.1 fl (7.5-11.1); MONO % 4.1 % (3.8-10.2); NEUT % 87.3 % (42.8-82.8); PLATELET COUNT 320 K/MM3 (134-434); RBC 4.06 M/mm3 (3.60-5.2); RDW 17.5 % (11.6-15.6); WHITE BLOOD COUNT 13.7 K/mm3 (4.0-10.0)
[2019-03-27] MEDS ORDERED: DEXTROSE 5%-WATER - 50 ML IVPB ONE ×3 (01:33→17:04)
[2019-03-27] MEDS ORDERED: PIPERACILLIN/TAZOBACTAM 3.375 GM VIAL IVPB ONE ×3 (01:33→17:04)
[2019-03-27] MEDS: PIPERACILLIN/TAZOB 3.375 GM 3.375 GM in DEXTROSE 5%-WATER - 50 ML IVPB SCH ×3 (02:18→17:36)
[2019-03-27] MEDS ORDERED: LACTATED RINGERS SOLUTION 1,000 ML/1,000 ML INFUS.BAG IV SCH (05:00)
[2019-03-27] MEDS: metFORMIN HCL 500 MG TABLET (FP) PO SCH (06:28)
[2019-03-27] MEDS: INSULIN SLIDING SCALE (NOVOLOG) 1 VIAL SQ SCH ×4 (06:29→22:00)
[2019-03-27] MEDS: PIOGLITAZONE HCL 15 MG TABLET (FP) PO SCH (06:30)
[2019-03-27 07:18] LABS: BASO % 0.3 % (0-2.0); HEMATOCRIT 30.3 % (32.4-45.2); HEMOGLOBIN 9.8 GM/dL (10.7-15.3); LYMPH % 3.5 % (8-40); MCH 26.6 pg (25.7-33.7); MCHC 32.3 g/dl (32.0-36.0); MEAN CELL VOLUME 82.5 fl (80-96); MEAN PLT VOLUME 8.2 fl (7.5-11.1); MONO % 3.4 % (3.8-10.2); NEUT % 92.8 % (42.8-82.8); PLATELET COUNT 339 K/MM3 (134-434); RBC 3.67 M/mm3 (3.60-5.2); RDW 17.4 % (11.6-15.6)
[2019-03-27 07:49] LABS: ALBUMIN 2.3 g/dl (3.4-5.0); BILIRUBIN,DIRECT 0.9 mg/dL (0.0-0.2); BILIRUBIN,TOTAL 1.2 mg/dL (0.2-1); BLOOD UREA NITROGEN 51.6 mg/dL (7-18); CREATININE 1.4 mg/dL (0.55-1.3); POTASSIUM 4.7 mmol/L (3.5-5.1); TOT PROT 5.4 g/dl (6.4-8.2)
--- NOTE | 2019-03-27 08:05 | PN.GI ---
GI Progress Note Subjective: PATIENT DENIES ABDOMINAL PAIN / NAUSEA / VOMITING OR MELENA ; STATES SHE IS FEELING BETTER - Objective Vital Signs: Vital Signs Temperature 97.5 F L 03/27/19 02:00 Pulse Rate 71 03/27/19 06:00 Respiratory Rate 20 03/27/19 06:00 Blood Pressure 90/39 L 03/27/19 06:00 O2 Sat by Pulse Oximetry (%) 92 L 03/26/19 20:44 Constitutional: Well Nourished, No Distress, Calm Eyes: Yes: WNL HENT: Yes: WNL Neck: Yes: WNL Cardiovascular: Yes: WNL Respiratory: Yes: WNL Gastrointestinal Inspection: Yes: WNL ...Auscultate: Yes: Normoactive Bowel Sounds ...Palpate: Yes: Soft Extremities: Yes: WNL Edema: No Labs: CBC, BMP 03/27/19 06:11 03/27/19 06:11 INR, PTT INR 1.12 (0.83-1.09) H 03/24/19 15:20 Problem List - Problems (1) Abnormal liver enzymes Assessment/Plan: S/P ERCP WITH SPHINCTERTOMY - STONE WAS TOO LARGE TO EXTRACT WILL THEREFORE REQUIRE TRANSFER TO [facility]IARY CARE CENTER FOR FURTHER MANAGEMENT C/W ABX FOR GRAM NEGATIVE SEPSIS H/H STABLE IF REMAINS STABLE MAY START DVT PROPHYLAXIS TOMORROW ADVANCE TO FULL LIQUID DIET TONIGHT MONITOR LFT;S AND CBC QD Code(s): R74.8 - ABNORMAL LEVELS OF OTHER SERUM ENZYMES (2) Bacteremia due to Gram-negative bacteria Code(s): R78.81 - BACTEREMIA (3) Biliary sepsis Code(s): K83.09 - OTHER CHOLANGITIS (4) Choledocholithiasis Code(s): K80.50 - CALCULUS OF BILE DUCT W/O CHOLANGITIS OR CHOLECYST W/O OBST
--- NOTE | 2019-03-27 10:23 | PN ---
Progress Note, Physician Chief Complaint: OOB to chair NAD VSS afebrile no new c/o no N/V/ abdominal pain no CP/SOB borderline low bp; coaar held for now, continue metoprolol increased creat: renal eval; hold cozaar for now consults tests meds reviewed, d/w renal dr Ortega and GI dr Chang - Current Medication List Current Medications: Active Medications Albuterol Sulfate (Ventolin Hfa Inhaler -) 2 puff IH Q6H PRN PRN Reason: SHORT OF BREATH/WHEEZING Aspirin (Asa -) 81 mg PO DAILY [facility] Last Admin: 03/26/19 09:45 Dose: 81 mg Fentanyl (Sublimaze Injection -) 25 mcg IVPUSH [id number] PRN PRN Reason: PAIN-PACU ORDER X 4 DOSES ONLY Last Admin: 03/26/19 17:20 Dose: 25 mcg Piperacillin Sod/Tazobactam (Sod 3.375 gm/ Dextrose) 50 mls @ 100 mls/hr IVPB Q8H-IV [facility]; Protocol Last Admin: 03/27/19 02:18 Dose: 100 mls/hr Lactated Ringer's (Lactated Ringers Solution) 1,000 ml in 1,000 mls @ 150 mls/ hr IV [facility] Stop: 03/27/19 11:00 Lactated Ringer's (Lactated Ringers Solution) 1,000 ml in 1,000 mls @ 125 mls/ hr IV [facility] Insulin Aspart (Novolog Vial Sliding Scale -) 0 - 10 vial SQ ACHS [facility]; Protocol Last Admin: 03/27/19 06:29 Dose: 4 units Metformin HCl (Glucophage -) 1,000 mg PO ACBK [facility] Last Admin: 03/27/19 06:28 Dose: 1,000 mg Metoprolol Succinate (Toprol Xl -) 25 mg PO DAILY [facility] Last Admin: 03/26/19 09:45 Dose: 25 mg Mometasone Furoate (Asmanex 110mcg -) 1 puff IH BID [facility] Last Admin: 03/26/19 22:30 Dose: 1 puff Non-Formulary Medication (Nateglinide) 120 mg PO TID [facility] Pioglitazone HCl (Actos -) 15 mg PO ACBK [facility] Last Admin: 03/27/19 06:30 Dose: 15 mg Ranitidine HCl (Zantac -) 150 mg PO BID [facility] Last Admin: 03/26/19 22:29 Dose: 150 mg - Objective Vital Signs: Vital Signs Temperature 98.6 F 03/27/19 08:56 Pulse Rate 74 03/27/19 08:56 Respiratory Rate 22 H 03/27/19 08:56 Blood Pressure 82/38 L 03/27/19 08:56 O2 Sat by Pulse Oximetry (%) 92 L 03/26/19 20:44 Constitutional: Yes: No Distress, Calm Eyes: Yes: Conjunctiva Clear HENT: Yes: Atraumatic Neck: Yes: Supple Cardiovascular: Yes: Regular Rate and Rhythm Respiratory: Yes: CTA Bilaterally Gastrointestinal: Yes: Soft. No: Tenderness Musculoskeletal: No: Joint Stiffness, Joint Swelling Extremities: No: Cold, Cool, Cyanosis Edema: No Integumentary: No: Rash, Venous Stasis Changes Neurological: Yes: WNL, Alert, Oriented ...Motor Strength: WNL Psychiatric: Yes: WNL, Alert, Oriented. No: Agitated, Suicidal Ideation Labs: CBC, BMP 03/27/19 06:11 03/27/19 06:11 INR, PTT INR 1.12 (0.83-1.09) H 03/24/19 15:20 Assessment/Plan 78 yo F with h/o DM, HTN, COPD ( Home O2), CAD, OR, SBO, cholecystectomy admitted with anemia (Hgb 7.0) with associated generalized weakness, decreased exercise tolerance and increasing exertional dyspnea. H/o anemia s/p transfusions. During H stay her LFTs increased and she was dx with biliary stones s/p ERCP; positive blood cx sepsis now borderline low BP and mild increase in creat; hold cozaar; renal eval GI, ID and cardiology f/u; labs f/u consults, tests and meds noted d/w GI dr Chang would hold the AC for now (including sq heparin) given h/o ERCP bleed and severe anemia; to d/w GI in 1-2 days if stable and when OK to restart AC - dw pt risks of OR CVA PE DVT Off AC and risks of bleed with AC she understood and agreed with current plan to d/w GI about transfer to tertiary center [facility] PFX d/w pt and staff t time 40 min
[2019-03-27] MEDS: ASPIRIN 81 MG CHEWABLE TABLETS PO SCH (11:00)
[2019-03-27] MEDS: metoPROLOL SUCCINATE 25 MG TAB.SR.24H (FP) PO SCH (11:00)
[2019-03-27] MEDS: RANITIDINE HCL 150 MG TABLET (FP) PO SCH ×2 (11:00→21:29)
[2019-03-27] MEDS: LACTATED RINGERS SOLUTION 1,000 ML/1,000 ML INFUS.BAG IV SCH ×2 (11:02→23:00)
[2019-03-27] MEDS: MOMETASONE FUROATE 110 MCG/IH INHALER IH SCH ×2 (11:03→21:28)
--- NOTE | 2019-03-27 11:33 | CONSULT ---
Consult - text type - Consultation Consultation Note: Renal consult for RANDY/CKD This is a 78 year old woman with history of CKD stage 3, hypertension, DM Type 2 , CAD, anemia presented from home with weakness and found to have liver injury from CBD stone, gram negative bacteremia and Cr of 1.4. Pt seen and examined at the bedside. s/p ERCP yesterday but was unable to extract the stone. Denies any sob, cp, abd pain, fever or chills. Rpoerts right shoulder pain. Making urine. On IVF. PMhx: as above Allergies: NKDA Family Hx: NC Social Hx: No T/A/D ROS: as per HPI Home Medications Medication Instructions Recorded Aspirin [ASA -] 81 mg PO DAILY 04/12/17 Metoprolol Succinate [Toprol XL -] 25 mg PO DAILY 04/12/17 Nateglinide [Starlix (Nf) -] 120 mg PO TID 04/12/17 Olmesartan Medoxomil [Benicar -] 20 mg PO DAILY 04/12/17 Albuterol Sulfate Inhaler - 1 - 2 inh PO Q4H PRN 04/28/18 [Ventolin HFA Inhaler -] Pioglitazone HCl 15 mg PO DAILY 04/28/18 Ranitidine HCl 150 mg PO BID 04/28/18 Ferrous Sulfate [Feosol] 325 mg PO DAILY 02/15/19 Fluticasone Propionate [Flovent 110 mcg IH BID 03/24/19 Diskus] Metformin HCl [Glucophage] 1,000 mg PO DAILY 03/24/19 Vital Signs Temperature 98.6 F 03/27/19 08:56 Pulse Rate 106 H 03/27/19 11:26 Respiratory Rate 22 H 03/27/19 11:26 Blood Pressure 119/54 L 03/27/19 11:26 O2 Sat by Pulse Oximetry (%) 92 L 03/26/19 20:44 Intake & Output 03/24/19 03/25/19 03/26/19 03/27/19 23:59 23:59 23:59 23:59 Intake Total 125 2000 1225 Output Total 1100 600 350 Balance -975 1400 875 Weight 77.111 kg 77.111 kg 60.328 kg 63.14 kg NAD awake and alert neck supple, no JVD RRR CTA soft NT/ND no LE edema CBC, BMP 03/27/19 06:11 03/27/19 06:11 Current Medications Albuterol Sulfate (Ventolin Hfa Inhaler -) 2 puff IH Q6H PRN PRN Reason: SHORT OF BREATH/WHEEZING Aspirin (Asa -) 81 mg PO DAILY [facility] Last Admin: 03/27/19 11:00 Dose: 81 mg Fentanyl (Sublimaze Injection -) 25 mcg IVPUSH [id number] PRN PRN Reason: PAIN-PACU ORDER X 4 DOSES ONLY Last Admin: 03/26/19 17:20 Dose: 25 mcg Piperacillin Sod/Tazobactam (Sod 3.375 gm/ Dextrose) 50 mls @ 100 mls/hr IVPB Q8H-IV [facility]; Protocol Last Admin: 03/27/19 10:59 Dose: 100 mls/hr Lactated Ringer's (Lactated Ringers Solution) 1,000 ml in 1,000 mls @ 125 mls/ hr IV ASDIR [facility] Last Admin: 03/27/19 11:02 Dose: 125 mls/hr Insulin Aspart (Novolog Vial Sliding Scale -) 0 - 10 vial SQ ACHS [facility]; Protocol Last Admin: 03/27/19 06:29 Dose: 4 units Metformin HCl (Glucophage -) 1,000 mg PO ACBK [facility] Last Admin: 03/27/19 06:28 Dose: 1,000 mg Metoprolol Succinate (Toprol Xl -) 25 mg PO DAILY [facility] Last Admin: 03/27/19 11:00 Dose: 25 mg Mometasone Furoate (Asmanex 110mcg -) 1 puff IH BID [facility] Last Admin: 03/27/19 11:03 Dose: 1 puff Non-Formulary Medication (Nateglinide) 120 mg PO TID [facility] Pioglitazone HCl (Actos -) 15 mg PO ACBK [facility] Last Admin: 03/27/19 06:30 Dose: 15 mg Ranitidine HCl (Zantac -) 150 mg PO BID [facility] Last Admin: 03/27/19 11:00 Dose: 150 mg 78 year old woman with history of CKD stage 3, hypertension, DM Type 2, CAD, anemia presented from home with weakness and found to have liver injury from CBD stone, gram negative bacteremia and Cr of 1.4 1. CKD stage 3 2. CBD stone 3. Gram negative bacteremia 4. Anemia 5. DM on metformin Renal function stable, Cr sligthly elevated from baseline continue LR at 125cc for mangement of sepsis/gram negative bacteremia continue abx as per ID keep MAP > 65 hold anithypertensives for now aparet from BB trend H/H Gi followup, may need transfer to tertiary care center can maintain Metformin as long as Cr < 1.5 Thank you Dillon Ortega DO
[2019-03-27 12:54] LABS: ANISOCYTOSIS 2+; MACROCYTOSIS 0; PLATELET ESTIMATE NORMAL; TARGET CELLS 1+; TEAR DROP CELLS 1+
[2019-03-27] MEDS ORDERED: PT OWN MED DRAWER 7, Y5N ONE (17:09)
--- NOTE | 2019-03-27 19:41 | PN ---
Progress Note, Physician Chief Complaint: ID Coverage - Dr. King History of Present Illness: The patient is a 78 year old female admitted with weakness. She was noted to be anemic and required 2 u PRBC's. Hospital course significant for onset of fever, abd'l pain associated with leukocytosis and elevated LFT's. W/Up (+) GNR. ERCP done but was unsuccessful in extracting large CBD stone. She had been started on Zosyn and her WBC has downtrended and she has become afebrile. - Current Medication List Current Medications: Active Medications Albuterol Sulfate (Ventolin Hfa Inhaler -) 2 puff IH Q6H PRN PRN Reason: SHORT OF BREATH/WHEEZING Aspirin (Asa -) 81 mg PO DAILY [facility] Last Admin: 03/27/19 11:00 Dose: 81 mg Fentanyl (Sublimaze Injection -) 25 mcg IVPUSH [id number] PRN PRN Reason: PAIN-PACU ORDER X 4 DOSES ONLY Last Admin: 03/26/19 17:20 Dose: 25 mcg Piperacillin Sod/Tazobactam (Sod 3.375 gm/ Dextrose) 50 mls @ 100 mls/hr IVPB Q8H-IV [facility]; Protocol Last Admin: 03/27/19 17:36 Dose: 100 mls/hr Lactated Ringer's (Lactated Ringers Solution) 1,000 ml in 1,000 mls @ 125 mls/ hr IV ASDIR [facility] Last Admin: 03/27/19 11:02 Dose: 125 mls/hr Insulin Aspart (Novolog Vial Sliding Scale -) 0 - 10 vial SQ ACHS [facility]; Protocol Last Admin: 03/27/19 17:36 Dose: 2 units Metformin HCl (Glucophage -) 1,000 mg PO ACBK [facility] Last Admin: 03/27/19 06:28 Dose: 1,000 mg Metoprolol Succinate (Toprol Xl -) 25 mg PO DAILY [facility] Last Admin: 03/27/19 11:00 Dose: 25 mg Mometasone Furoate (Asmanex 110mcg -) 1 puff IH BID [facility] Last Admin: 03/27/19 11:03 Dose: 1 puff Non-Formulary Medication (Nateglinide) 120 mg PO TID [facility] Pioglitazone HCl (Actos -) 15 mg PO ACBK [facility] Last Admin: 03/27/19 06:30 Dose: 15 mg Ranitidine HCl (Zantac -) 150 mg PO BID [facility] Last Admin: 03/27/19 11:00 Dose: 150 mg - Objective Vital Signs: Vital Signs Temperature 98.3 F 03/27/19 18:20 Pulse Rate 96 H 03/27/19 18:20 Respiratory Rate 22 H 03/27/19 18:20 Blood Pressure 119/58 L 03/27/19 18:20 O2 Sat by Pulse Oximetry (%) 98 03/27/19 09:00 Constitutional: Yes: No Distress, Calm HENT: Yes: Atraumatic Cardiovascular: Yes: Regular Rate and Rhythm Respiratory: Yes: CTA Bilaterally Gastrointestinal: Yes: Normal Bowel Sounds, Soft Labs: CBC, BMP 03/27/19 06:11 03/27/19 06:11 INR, PTT INR 1.12 (0.83-1.09) H 03/24/19 15:20 Problem List - Problems (1) Abnormal liver enzymes Code(s): R74.8 - ABNORMAL LEVELS OF OTHER SERUM ENZYMES (2) Bacteremia due to Gram-negative bacteria Code(s): R78.81 - BACTEREMIA (3) Biliary sepsis Code(s): K83.09 - OTHER CHOLANGITIS (4) Choledocholithiasis Code(s): K80.50 - CALCULUS OF BILE DUCT W/O CHOLANGITIS OR CHOLECYST W/O OBST (5) Symptomatic anemia Code(s): D64.9 - ANEMIA, UNSPECIFIED Assessment/Plan Pt admitted with anemia. Found to have cholangitis from choledocholithiasis. Gram Negative Sepsis, Biliary Sepsis Continue Zosyn. Await final ID of [id number]. Further recommendations to follow based on results and clinical course. Dr. King will resume ID care/follow up in AM.
[2019-03-27] MEDS ORDERED: INSULIN (NOVOLOG) ASPART 100 UNITS/ML 10ML VIAL ONE (21:57)
[2019-03-28] MEDS ORDERED: DEXTROSE 5%-WATER - 50 ML IVPB ONE ×2 (01:10→07:43)
[2019-03-28] MEDS ORDERED: PIPERACILLIN/TAZOBACTAM 3.375 GM VIAL IVPB ONE ×2 (01:10→07:43)
[2019-03-28] MEDS: PIPERACILLIN/TAZOB 3.375 GM 3.375 GM in DEXTROSE 5%-WATER - 50 ML IVPB SCH ×2 (01:16→12:27)
--- NOTE | 2019-03-28 06:12 | PN ---
Progress Note, Physician Chief Complaint: s/p ercp under general anesthesia History of Present Illness: post op day one - Current Medication List Current Medications: Active Medications Albuterol Sulfate (Ventolin Hfa Inhaler -) 2 puff IH Q6H PRN PRN Reason: SHORT OF BREATH/WHEEZING Aspirin (Asa -) 81 mg PO DAILY [facility] Last Admin: 03/27/19 11:00 Dose: 81 mg Fentanyl (Sublimaze Injection -) 25 mcg IVPUSH [id number] PRN PRN Reason: PAIN-PACU ORDER X 4 DOSES ONLY Last Admin: 03/26/19 17:20 Dose: 25 mcg Piperacillin Sod/Tazobactam (Sod 3.375 gm/ Dextrose) 50 mls @ 100 mls/hr IVPB Q8H-IV [facility]; Protocol Last Admin: 03/28/19 01:16 Dose: 100 mls/hr Lactated Ringer's (Lactated Ringers Solution) 1,000 ml in 1,000 mls @ 125 mls/ hr IV ASDIR [facility] Last Admin: 03/27/19 23:00 Dose: 125 mls/hr Insulin Aspart (Novolog Vial Sliding Scale -) 0 - 10 vial SQ ACHS [facility]; Protocol Last Admin: 03/27/19 22:00 Dose: 2 units Metformin HCl (Glucophage -) 1,000 mg PO ACBK [facility] Last Admin: 03/27/19 06:28 Dose: 1,000 mg Metoprolol Succinate (Toprol Xl -) 25 mg PO DAILY [facility] Last Admin: 03/27/19 11:00 Dose: 25 mg Mometasone Furoate (Asmanex 110mcg -) 1 puff IH BID [facility] Last Admin: 03/27/19 21:28 Dose: 1 puff Non-Formulary Medication (Nateglinide) 120 mg PO TID [facility] Pioglitazone HCl (Actos -) 15 mg PO ACBK [facility] Last Admin: 03/27/19 06:30 Dose: 15 mg Ranitidine HCl (Zantac -) 150 mg PO BID [facility] Last Admin: 03/27/19 21:29 Dose: 150 mg - Objective Vital Signs: Vital Signs Temperature 97.5 F L 03/28/19 01:46 Pulse Rate 89 03/28/19 01:46 Respiratory Rate 20 03/28/19 01:46 Blood Pressure 106/49 L 03/28/19 01:46 O2 Sat by Pulse Oximetry (%) 96 03/27/19 21:00 Constitutional: Yes: Well Nourished Cardiovascular: Yes: WNL Respiratory: Yes: WNL Gastrointestinal: Yes: WNL Labs: CBC, BMP 03/27/19 06:11 03/27/19 06:11 INR, PTT INR 1.12 (0.83-1.09) H 03/24/19 15:20 Assessment/Plan no adverse anesthetic effects, dept of anesthesia will sign off care at this time
[2019-03-28] MEDS: metFORMIN HCL 500 MG TABLET (FP) PO SCH (06:34)
[2019-03-28] MEDS: PIOGLITAZONE HCL 15 MG TABLET (FP) PO SCH (06:35)
[2019-03-28] MEDS: INSULIN SLIDING SCALE (NOVOLOG) 1 VIAL SQ SCH ×4 (06:40→21:12)
[2019-03-28 07:34] LABS: BASO % 0.3 % (0-2.0); EOS % 1.1 % (0-4.5); HEMOGLOBIN 9.5 GM/dL (10.7-15.3); LYMPH % 6.6 % (8-40); MCH 26.8 pg (25.7-33.7); MCHC 32.6 g/dl (32.0-36.0); MEAN CELL VOLUME 82.2 fl (80-96); MONO % 7.6 % (3.8-10.2); NEUT % 84.4 % (42.8-82.8); PLATELET COUNT 310 K/MM3 (134-434); RBC 3.53 M/mm3 (3.60-5.2); WHITE BLOOD COUNT 9.3 K/mm3 (4.0-10.0)
[2019-03-28 07:53] LABS: ALBUMIN 2.2 g/dl (3.4-5.0); BILIRUBIN,DIRECT 0.5 mg/dL (0.0-0.2); BILIRUBIN,TOTAL 0.7 mg/dL (0.2-1); BLOOD UREA NITROGEN 54.6 mg/dL (7-18); CALCIUM 7.9 mg/dL (8.5-10.1); MAGNESIUM 1.4 mg/dL (1.8-2.4); PHOSPHOROUS 4.7 mg/dL (2.5-4.9); POTASSIUM 4.6 mmol/L (3.5-5.1); TOT PROT 5.1 g/dl (6.4-8.2)
--- NOTE | 2019-03-28 08:28 | PN.GI ---
GI Progress Note Subjective: NO NEW COMPLAINTS - FEELING BETTER ; DENIES ABD PAIN - Objective Vital Signs: Vital Signs Temperature 97.8 F 03/28/19 06:31 Pulse Rate 82 03/28/19 06:31 Respiratory Rate 20 03/28/19 06:31 Blood Pressure 114/51 L 03/28/19 06:31 O2 Sat by Pulse Oximetry (%) 96 03/27/19 21:00 Constitutional: Well Nourished, No Distress, Calm Eyes: Yes: WNL HENT: Yes: WNL Neck: Yes: WNL, Supple Cardiovascular: Yes: WNL, Regular Rate and Rhythm Respiratory: Yes: WNL, Regular, CTA Bilaterally Gastrointestinal Inspection: Yes: WNL ...Auscultate: Yes: Normoactive Bowel Sounds Extremities: Yes: WNL Edema: No Labs: CBC, BMP 03/28/19 06:28 03/28/19 06:28 INR, PTT INR 1.12 (0.83-1.09) H 03/24/19 15:20 Problem List - Problems (1) Abnormal liver enzymes Assessment/Plan: S/P ERCP WITH SPHINCTERTOMY - STONE WAS TOO LARGE TO EXTRACT WILL THEREFORE REQUIRE TRANSFER TO [facility] FOR FURTHER MANAGEMENT C/W ABX FOR GRAM NEGATIVE SEPSIS H/H STABLE IF REMAINS STABLE MAY START DVT PROPHYLAXIS ADVANCE TO FULL LIQUID DIET MONITOR LFT;S AND CBC QD Code(s): R74.8 - ABNORMAL LEVELS OF OTHER SERUM ENZYMES (2) Bacteremia due to Gram-negative bacteria Code(s): R78.81 - BACTEREMIA (3) Biliary sepsis Code(s): K83.09 - OTHER CHOLANGITIS (4) Choledocholithiasis Code(s): K80.50 - CALCULUS OF BILE DUCT W/O CHOLANGITIS OR CHOLECYST W/O OBST
--- NOTE | 2019-03-28 09:49 | PN ---
Progress Note (short form) - Note Progress Note: Renal follow up for RANDY/CKD Pt seen and examined at the bedside reports mild abd pain but is improved has mild sob, but no cough no chest pain, no fever, chills making urine via beatty Vital Signs Temperature 97.8 F 03/28/19 06:31 Pulse Rate 82 03/28/19 06:31 Respiratory Rate 20 03/28/19 06:31 Blood Pressure 114/51 L 03/28/19 06:31 O2 Sat by Pulse Oximetry (%) 96 03/27/19 21:00 Intake & Output 03/25/19 03/26/19 03/27/19 03/28/19 23:59 23:59 23:59 23:59 Intake Total 125 2000 1885 Output Total 1100 600 550 100 Balance -975 1400 1335 -100 Weight 77.111 kg 60.328 kg 63.14 kg 62.414 kg NAD RRR CTA, dec BS at lung bases but no rale soft NT/ND no LE edema CBC, BMP 03/28/19 06:28 03/28/19 06:28 Current Medications Albuterol Sulfate (Ventolin Hfa Inhaler -) 2 puff IH Q6H PRN PRN Reason: SHORT OF BREATH/WHEEZING Aspirin (Asa -) 81 mg PO DAILY [facility] Last Admin: 03/27/19 11:00 Dose: 81 mg Fentanyl (Sublimaze Injection -) 25 mcg IVPUSH [id number] PRN PRN Reason: PAIN-PACU ORDER X 4 DOSES ONLY Last Admin: 03/26/19 17:20 Dose: 25 mcg Piperacillin Sod/Tazobactam (Sod 3.375 gm/ Dextrose) 50 mls @ 100 mls/hr IVPB Q8H-IV [facility]; Protocol Last Admin: 03/28/19 01:16 Dose: 100 mls/hr Lactated Ringer's (Lactated Ringers Solution) 1,000 ml in 1,000 mls @ 125 mls/ hr IV ASDIR [facility] Last Admin: 03/27/19 23:00 Dose: 125 mls/hr Insulin Aspart (Novolog Vial Sliding Scale -) 0 - 10 vial SQ ACHS [facility]; Protocol Last Admin: 03/27/19 22:00 Dose: 2 units Metformin HCl (Glucophage -) 1,000 mg PO ACBK [facility] Last Admin: 03/28/19 06:34 Dose: 1,000 mg Metoprolol Succinate (Toprol Xl -) [address] [facility] Last Admin: 03/27/19 11:00 Dose: 25 mg Mometasone Furoate (Asmanex 110mcg -) [address] [facility] Last Admin: 03/27/19 21:28 Dose: 1 puff Non-Formulary Medication (Nateglinide) [address] [facility] Pioglitazone HCl (Actos -) [address] [facility] Last Admin: 03/28/19 06:35 Dose: 15 mg Ranitidine HCl (Zantac -) [address] [facility] Last Admin: 03/27/19 21:29 Dose: 150 mg 78 year old woman with history of CKD stage 3, hypertension, DM Type 2, CAD, anemia presented from home with weakness and found to have liver injury from CBD stone, gram negative bacteremia and Cr of 1.4 1. CKD stage 3 2. CBD stone 3. Gram negative bacteremia 4. Anemia 5. DM on metformin Cr marcia to 2 likely result of acute inflamatory state/renal hypoprofusion vs. AIN Check urine studies for FeNa, UA, Urine eosinophils continue LR at 125cc per hour, maintain MAP > 65 continue antibiotics as per primary team Trend renal function and electrolytes daily Thank you Dillon Ortega DO
[2019-03-28] MEDS ORDERED: MORPHINE SULFATE 2 MG/ML VIAL IVPUSH ONE (11:30)
--- NOTE | 2019-03-28 11:43 | PN ---
Progress Note, Physician History of Present Illness: Pt w RUQ abd pain this AM 4-6/10,no nausea, no vomitting. Pt w/o SOB, CP, palpitations. Pt asked me to call her daughter, Kassidy, and update about her condition. - Current Medication List Current Medications: Active Medications Albuterol Sulfate (Ventolin Hfa Inhaler -) 2 puff IH Q6H PRN PRN Reason: SHORT OF BREATH/WHEEZING Aspirin (Asa -) 81 mg PO DAILY [facility] Last Admin: 03/27/19 11:00 Dose: 81 mg Fentanyl (Sublimaze Injection -) 25 mcg IVPUSH [id number] PRN PRN Reason: PAIN-PACU ORDER X 4 DOSES ONLY Last Admin: 03/26/19 17:20 Dose: 25 mcg Piperacillin Sod/Tazobactam (Sod 3.375 gm/ Dextrose) 50 mls @ 100 mls/hr IVPB Q8H-IV [facility]; Protocol Last Admin: 03/28/19 01:16 Dose: 100 mls/hr Lactated Ringer's (Lactated Ringers Solution) 1,000 ml in 1,000 mls @ 125 mls/ hr IV [facility] 234 [facility]S [facility] Last Admin: 03/27/19 23:00 Dose: 125 mls/hr Insulin Aspart (Novolog Vial Sliding Scale -) 0 - 10 vial SQ ACHS [facility]; Protocol Last Admin: 03/27/19 22:00 Dose: 2 units Metformin HCl (Glucophage -) 1,000 mg PO ACBK [facility]S [facility] Last Admin: 03/28/19 06:34 Dose: 1,000 mg Metoprolol Succinate (Toprol Xl -) 25 mg PO DAILY [facility] Last Admin: 03/27/19 11:00 Dose: 25 mg Mometasone Furoate (Asmanex 110mcg -) 1 puff IH BID [facility] Last Admin: 03/27/19 21:28 Dose: 1 puff Non-Formulary Medication (Nateglinide) 120 mg PO TID [facility]S [facility] Pioglitazone HCl (Actos -) 15 mg PO ACBK [facility] 234 B[facility]S [facility] Last Admin: 03/28/19 06:35 Dose: 15 mg Ranitidine HCl (Zantac -) 150 mg PO BID [facility] 234 [facility]S [facility] Last Admin: 03/27/19 21:29 Dose: 150 mg - Objective Vital Signs: Vital Signs Temperature 97.8 F 03/28/19 06:31 Pulse Rate 82 08/18/19 06:31 Respiratory Rate 20 03/28/19 06:31 Blood Pressure 114/51 L 03/28/19 06:31 O2 Sat by Pulse Oximetry (%) 96 03/27/19 21:00 Constitutional: Yes: No Distress, Calm Cardiovascular: Yes: Regular Rate and Rhythm, S1, S2 Respiratory: Yes: Regular, CTA Bilaterally. No: Rales Gastrointestinal: Yes: Normal Bowel Sounds, Soft. No: Tenderness Edema: No Neurological: Yes: Alert, Oriented Labs: CBC, BMP 03/28/19 06:28 03/28/19 06:28 INR, PTT INR 1.12 (0.83-1.09) H 03/24/19 15:20 Problem List - Problems (1) Weakness Code(s): R53.1 - WEAKNESS (2) Anemia Code(s): D64.9 - ANEMIA, UNSPECIFIED Qualifiers: Anemia type: unspecified type Qualified Code(s): D64.9 - Anemia, unspecified (3) Presence of stent in coronary artery in patient with coronary artery disease Code(s): I25.10 - ATHSCL HEART DISEASE OF NISQUALLY CORONARY ARTERY W/O ANG PCTRS; Z95.5 - PRESENCE OF CORONARY ANGIOPLASTY IMPLANT AND GRAFT (4) COPD (chronic obstructive pulmonary disease) Code(s): J44.9 - CHRONIC OBSTRUCTIVE PULMONARY DISEASE, UNSPECIFIED (5) NSTEMI (non-ST elevated myocardial infarction) Code(s): I21.4 - NON-ST ELEVATION (NSTEMI) MYOCARDIAL INFARCTION (6) Choledocholithiasis Code(s): K80.50 - CALCULUS OF BILE DUCT W/O CHOLANGITIS OR CHOLECYST W/O OBST (7) Bacteremia due to Gram-negative bacteria Code(s): R78.81 - BACTEREMIA (8) Abnormal liver enzymes Code(s): R74.8 - ABNORMAL LEVELS OF OTHER SERUM ENZYMES (9) Adrenal hyperplasia Code(s): E27.8 - OTHER SPECIFIED DISORDERS OF ADRENAL GLAND (10) Biliary sepsis Code(s): K83.09 - OTHER CHOLANGITIS (11) Symptomatic anemia Code(s): D64.9 - ANEMIA, UNSPECIFIED Assessment/Plan S/p PRBC Tx, 2 units S/p ERCP, large stone, not able to be taken out and less likely to be able to pass. To f/u with GI about further treatment Cardio, GI consults are appreciated AM labs Pt's condition was d/w her dg, Kassidy. All questions were answered. Pt's care was d/w her nurse
[2019-03-28] MEDS: LACTATED RINGERS SOLUTION 1,000 ML/1,000 ML INFUS.BAG IV SCH (12:27)
[2019-03-28] MEDS: ASPIRIN 81 MG CHEWABLE TABLETS PO SCH (12:27)
[2019-03-28] MEDS: RANITIDINE HCL 150 MG TABLET (FP) PO SCH ×2 (12:27→21:09)
[2019-03-28] MEDS: MOMETASONE FUROATE 110 MCG/IH INHALER IH SCH ×2 (12:28→21:10)
[2019-03-28] MEDS: metoPROLOL SUCCINATE 25 MG TAB.SR.24H (FP) PO SCH (12:28)
--- NOTE | 2019-03-28 15:58 | PN ---
Progress Note (short form) - Note Progress Note: intermittent RUQ pain, improved no fevers s/p ERCP-large stone could not be extracted- biliary stent placed Vital Signs Period Temp Pulse Resp BP Sys/Burrell Pulse Ox Last 24 Hr 97.5 F-98.3 F 82-96 20-22 100-123/49-65 96 cor-rrr lungs clear abd soft,mild ruq painto palpation ext no edema lfts improving CBC, BMP 03/28/19 06:28 03/28/19 06:28 Microbiology 03/25/19 21:30 Blood - Peripheral Venous Blood Culture - Final Klebsiella Pneumoniae 03/25/19 21:20 Blood - Peripheral Venous Blood Culture - Final Klebsiella Pneumoniae-resistant to ampicillin only MRI-choledocholithiasis Current Medications Albuterol Sulfate (Ventolin Hfa Inhaler -) 2 puff IH Q6H PRN PRN Reason: SHORT OF BREATH/WHEEZING Aspirin (Asa -) 81 mg PO DAILY [facility] Last Admin: 03/28/19 12:27 Dose: 81 mg Fentanyl (Sublimaze Injection -) 25 mcg IVPUSH [id number] PRN PRN Reason: PAIN-PACU ORDER X 4 DOSES ONLY Last Admin: 03/26/19 17:20 Dose: 25 mcg Piperacillin Sod/Tazobactam (Sod 3.375 gm/ Dextrose) 50 mls @ 100 mls/hr IVPB Q8H-IV [facility]; Protocol Last Admin: 03/28/19 12:27 Dose: 100 mls/hr Lactated Ringer's (Lactated Ringers Solution) 1,000 ml in 1,000 mls @ 125 mls/ hr IV ASDIR [facility] Last Admin: 03/28/19 12:27 Dose: 125 mls/hr Insulin Aspart (Novolog Vial Sliding Scale -) 0 - 10 vial SQ ACHS [facility]; Protocol Last Admin: 03/27/19 22:00 Dose: 2 units Metformin HCl (Glucophage -) 1,000 mg PO ACBK [facility] Last Admin: 03/28/19 06:34 Dose: 1,000 mg Metoprolol Succinate (Toprol Xl -) 25 mg PO DAILY [facility] Last Admin: 03/28/19 12:28 Dose: 25 mg Mometasone Furoate (Asmanex 110mcg -) 1 puff IH BID [facility] Last Admin: 08/18/19 12:28 Dose: 1 puff Non-Formulary Medication (Nateglinide) 120 mg PO TID [facility] Pioglitazone HCl (Actos -) 15 mg PO ACBK [facility] Last Admin: 03/28/19 06:35 Dose: 15 mg Ranitidine HCl (Zantac -) 150 mg PO BID [facility] Last Admin: 03/28/19 12:27 Dose: 150 mg imp/reccd biliary sepsis-lfts improving gram negative bacteremia-klebsielly choledocholithiasis suspected biliary sepsis cad s/p stent salena- cr 2 today will d/c zosyn, switch to cefazolin repeat labs in am
[2019-03-28] MEDS: CEFAZOLIN 2 GM/D5W 2 GM/50 ML ML IVPB SCH (21:09)
[2019-03-28 21:50] LABS: RATIO URIN PROTEIN/URIN CREAT 1.76 MG/DL
[2019-03-29] MEDS: metFORMIN HCL 500 MG TABLET (FP) PO SCH (06:21)
[2019-03-29] MEDS: PIOGLITAZONE HCL 15 MG TABLET (FP) PO SCH (06:21)
[2019-03-29] MEDS: INSULIN SLIDING SCALE (NOVOLOG) 1 VIAL SQ SCH ×4 (07:05→22:04)
[2019-03-29 08:16] LABS: BASO % 0.6 % (0-2.0); EOS % 1.5 % (0-4.5); HEMATOCRIT 29.7 % (32.4-45.2); HEMOGLOBIN 9.5 GM/dL (10.7-15.3); LYMPH % 8.7 % (8-40); MCH 26.5 pg (25.7-33.7); MCHC 32.1 g/dl (32.0-36.0); MEAN CELL VOLUME 82.5 fl (80-96); MEAN PLT VOLUME 7.9 fl (7.5-11.1); MONO % 10.7 % (3.8-10.2); NEUT % 78.5 % (42.8-82.8); PLATELET COUNT 276 K/MM3 (134-434); RDW 17.9 % (11.6-15.6); WHITE BLOOD COUNT 6.8 K/mm3 (4.0-10.0)
[2019-03-29 08:49] LABS: ALBUMIN 2.2 g/dl (3.4-5.0); BILIRUBIN,TOTAL 0.7 mg/dL (0.2-1); BLOOD UREA NITROGEN 51.5 mg/dL (7-18); CREATININE 2.3 mg/dL (0.55-1.3); MAGNESIUM 1.5 mg/dL (1.8-2.4); PHOSPHOROUS 4.4 mg/dL (2.5-4.9); POTASSIUM 5.1 mmol/L (3.5-5.1); TOT PROT 5.1 g/dl (6.4-8.2)
[2019-03-29] MEDS: CEFAZOLIN 2 GM/D5W 2 GM/50 ML ML IVPB SCH ×2 (10:12→22:04)
[2019-03-29] MEDS: metoPROLOL SUCCINATE 25 MG TAB.SR.24H (FP) PO SCH (10:12)
[2019-03-29] MEDS: ASPIRIN 81 MG CHEWABLE TABLETS PO SCH (10:12)
[2019-03-29] MEDS: RANITIDINE HCL 150 MG TABLET (FP) PO SCH ×2 (10:12→22:04)
[2019-03-29] MEDS: MOMETASONE FUROATE 110 MCG/IH INHALER IH SCH ×2 (10:13→22:04)
--- NOTE | 2019-03-29 11:49 | PN ---
Progress Note (short form) - Note Progress Note: The patient is a 78-year-old [place] female with known case of coronary artery disease, angina pectoris status post PCI/stenting, history of recurring anemia, hypertension, hypertensive cardiovascular disease, noninsulin dependent diabetes mellitus, oxygen dependent COPD, history of hiatus hernia/ gastroesophageal reflux and history of tobacco abuse. Patient is being treated for Gram-negative septicemia related to cholangitis and a large gallstone which could not be extracted with sphinctertomy and is scheduled to go to a tertiary care center for further management. She presently is afebrile. No history of chest pain or discomfort. ALLERGIES: None reported. Active Medications Albuterol Sulfate (Ventolin Hfa Inhaler -) 2 puff IH Q6H PRN PRN Reason: SHORT OF BREATH/WHEEZING Aspirin (Asa -) 81 mg PO DAILY [facility] Last Admin: 03/29/19 10:12 Dose: 81 mg Fentanyl (Sublimaze Injection -) 25 mcg IVPUSH [id number] PRN PRN Reason: PAIN-PACU ORDER X 4 DOSES ONLY Last Admin: 03/26/19 17:20 Dose: 25 mcg Lactated Ringer's (Lactated Ringers Solution) 1,000 ml in 1,000 mls @ 125 mls/ hr IV ASDIR [facility] Last Admin: 03/28/19 12:27 Dose: 125 mls/hr Cefazolin Sodium/Dextrose (Ancef 2 Gm Premixed Ivpb -) 2 gm in 50 mls @ 100 mls /hr IVPB BID [facility] Last Admin: 03/29/19 10:12 Dose: 100 mls/hr Insulin Aspart (Novolog Vial Sliding Scale -) 0 - 10 vial SQ ACHS [facility]; Protocol Last Admin: 03/28/19 21:12 Dose: Not Given Metformin HCl (Glucophage -) 1,000 mg PO ACBK [facility] Last Admin: 03/29/19 06:21 Dose: 1,000 mg Metoprolol Succinate (Toprol Xl -) 25 mg PO DAILY [facility] Last Admin: 03/29/19 10:12 Dose: 25 mg Mometasone Furoate (Asmanex 110mcg -) 1 puff IH BID [facility] Last Admin: 03/29/19 10:13 Dose: 1 puff Non-Formulary Medication (Nateglinide) 120 mg PO TID [facility] Pioglitazone HCl (Actos -) 15 mg PO ACBK [facility] Last Admin: 03/29/19 06:21 Dose: 15 mg Ranitidine HCl (Zantac -) 150 mg PO BID [facility] Last Admin: 03/29/19 10:12 Dose: 150 mg PHYSICAL EXAMINATION: General: 78-year-old alert female was in no acute distress. Mild pallor, no cyanosis, clubbing or jaundice. Last Vital Signs Temp Pulse Resp BP Pulse Ox 97.9 F 77 20 137/65 96 03/29/19 05:58 03/29/19 05:58 03/29/19 05:58 03/29/19 05:58 03/28/19 20:43 Neck: Supple. No jugulovenous distention. Carotids were 2+, upstrokes were normal, no bruits were heard, and no thyromegaly was present. Heart: PMI was in the 5th intercostal space, no heaves or thrills. Heart sounds were slightly distant. S1 and S2 were normal. Ejection systolic murmur grade I/ was heard at the 2nd right intercostal space, murmur was nonradiating. No diastolic murmur or gallops were heard. Lungs: Clear on auscultation. Abdomen: Protuberant, soft and nontender. No hepatosplenomegaly or palpable masses were felt. Bowel sounds are present. No bruits were heard. Extremities: No calf tenderness or dependent edema, surgical scar over the left knee. Pulses were 2+, dorsalis pedis and posterior tibial pulses were weak. Laboratory Results - last 24 hr 03/28/19 03/28/19 03/28/19 17:44 20:35 21:08 WBC RBC Hgb Hct MCV MCH MCHC RDW Plt Count MPV Absolute Neuts (auto) Neutrophils % Lymphocytes % Monocytes % Eosinophils % Basophils % Nucleated RBC % Sodium Potassium Chloride Carbon Dioxide Anion Gap BUN Creatinine Est GFR (CKD-EPI)AfAm Est GFR (CKD-EPI)NonAf POC Glucometer 187 200 Random Glucose Calcium Phosphorus Magnesium Total Bilirubin AST ALT Alkaline Phosphatase Total Protein Albumin U Random Total Protein 67.1 H Ur Random Sodium 19 L Urine Creatinine 38.0 Protein/Creatinin Ratio 1.760 03/29/19 03/29/19 03/29/19 05:26 05:26 06:14 WBC 6.8 RBC 3.60 Hgb 9.5 L Hct 29.7 L MCV 82.5 MCH 26.5 MCHC 32.1 RDW 17.9 H Plt Count 276 MPV 7.9 Absolute Neuts (auto) 5.4 Neutrophils % 78.5 Lymphocytes % 8.7 D Monocytes % 10.7 H Eosinophils % 1.5 Basophils % 0.6 Nucleated RBC % 0 Sodium 135 L Potassium 5.1 Chloride 97 L Carbon Dioxide 31 Anion Gap 7 L BUN 51.5 H Creatinine 2.3 H Est GFR (CKD-EPI)AfAm 22.83 Est GFR (CKD-EPI)NonAf 19.70 POC Glucometer 108 Random Glucose 142 H Calcium 8.0 L Phosphorus 4.4 Magnesium 1.5 L Total Bilirubin 0.7 AST 63 H ALT 108 H Alkaline Phosphatase 253 H Total Protein 5.1 L Albumin 2.2 L U Random Total Protein Ur Random Sodium Urine Creatinine Protein/Creatinin Ratio 03/29/19 03/29/19 06:19 11:59 WBC RBC Hgb Hct MCV MCH MCHC RDW Plt Count MPV Absolute Neuts (auto) Neutrophils % Lymphocytes % Monocytes % Eosinophils % Basophils % Nucleated RBC % Sodium Potassium Chloride Carbon Dioxide Anion Gap BUN Creatinine Est GFR (CKD-EPI)AfAm Est GFR (CKD-EPI)NonAf POC Glucometer 143 176 Random Glucose Calcium Phosphorus Magnesium Total Bilirubin AST ALT Alkaline Phosphatase Total Protein Albumin U Random Total Protein Ur Random Sodium Urine Creatinine Protein/Creatinin Ratio IMPRESSION: 1. Coronary artery disease, status post percutaneous coronary intervention/ stenting, clinical presentation and lab findings consistent with acute coronary syndrome. 2. Acute cholangitis/ impacted gallstone. 3. Anemia, etiology to be determined. 4. Chronic obstructive pulmonary disease, oxygen dependent. 5. Noninsulin dependent diabetes mellitus. 6. Status post cerebrovascular accident without residual sequelae. 7. Hypertension, currently normotensive. 8. History of tobacco abuse. 9. History of hiatus hernia and gastroesophageal reflux disease. 10. Dyslipidemia. 11. Acute on chronic kidney injury. RECOMMENDATION: 1. Patient apparently is waiting for a transfer to a tertiary care center. 2. Latest cardiac catherization report is being obtained. 3. Continue current cardiac medications. Prognosis guarded. NEIL KRAMER M.D., [facility]
--- NOTE | 2019-03-29 13:58 | PN ---
Progress Note (short form) - Note Progress Note: intermittent RUQ pain, improved no fevers s/p ERCP-large stone could not be extracted- biliary stent placed oob in chair Vital Signs Period Temp Pulse Resp BP Sys/Burrell Pulse Ox Last 24 Hr 97.3 F-98.7 F 77-84 20-20 123-139/65-78 96 cor-rrr lungs decreased bs at bases abd soft,nt ext no edema CBC, BMP 03/29/19 05:26 03/29/19 05:26 Microbiology 03/25/19 21:30 Blood - Peripheral Venous Blood Culture - Final Klebsiella Pneumoniae 03/25/19 21:20 Blood - Peripheral Venous Blood Culture - Final Klebsiella Pneumoniae-resistant to ampicillin only blood cultlures 03/29 pending MRI-choledocholithiasis Current Medications Albuterol Sulfate (Ventolin Hfa Inhaler -) 2 puff IH Q6H PRN PRN Reason: SHORT OF BREATH/WHEEZING Aspirin (Asa -) 81 mg PO DAILY [facility] Last Admin: 03/29/19 10:12 Dose: 81 mg Fentanyl (Sublimaze Injection -) 25 mcg IVPUSH [id number] PRN PRN Reason: PAIN-PACU ORDER X 4 DOSES ONLY Last Admin: 03/26/19 17:20 Dose: 25 mcg Lactated Ringer's (Lactated Ringers Solution) 1,000 ml in 1,000 mls @ 125 mls/ hr IV ASDIR [facility] Last Admin: 03/28/19 12:27 Dose: 125 mls/hr Cefazolin Sodium/Dextrose (Ancef 2 Gm Premixed Ivpb -) 2 gm in 50 mls @ 100 mls /hr IVPB BID [facility] Last Admin: 03/29/19 10:12 Dose: 100 mls/hr Insulin Aspart (Novolog Vial Sliding Scale -) 0 - 10 vial SQ ACHS [facility]; Protocol Last Admin: 03/29/19 11:59 Dose: Not Given Metformin HCl (Glucophage -) 1,000 mg PO ACBK [facility] Last Admin: 03/29/19 06:21 Dose: 1,000 mg Metoprolol Succinate (Toprol Xl -) 25 mg PO DAILY [facility] Last Admin: 03/29/19 10:12 Dose: 25 mg Mometasone Furoate (Asmanex 110mcg -) 1 puff IH BID [facility] Last Admin: 03/29/19 10:13 Dose: 1 puff Non-Formulary Medication (Nateglinide) 120 mg PO TID [facility] Pioglitazone HCl (Actos -) 15 mg PO ACBK [facility] Last Admin: 03/29/19 06:21 Dose: 15 mg Ranitidine HCl (Zantac -) 150 mg PO BID [facility] Last Admin: 03/29/19 10:12 Dose: 150 mg imp/reccd biliary sepsis-lfts improving klebsiella bacteremia choledocholithiasis copd home oxygen cad s/p stent salena- cr 2.3 today day #4 antibiotics, now on cefazolin renal and GI f/u pending
--- NOTE | 2019-03-29 14:54 | PN ---
Progress Note (short form) - Note Progress Note: Renal follow up for RANDY/CKD Pt seen and examined at the bedside continues to have mild abdomnal pain, denies N/V denies any shortness of breath, orthopnea. is making urine on IVF Vital Signs Temperature 97.9 F 03/29/19 05:58 Pulse Rate 77 03/29/19 05:58 Respiratory Rate 20 03/29/19 05:58 Blood Pressure 137/65 03/29/19 05:58 O2 Sat by Pulse Oximetry (%) 96 03/28/19 20:43 Intake & Output 03/26/19 03/27/19 03/28/19 03/29/19 23:59 23:59 23:59 23:59 Intake Total 1999 1885 2330 1720 Output Total 648 194 3556 500 Balance 1400 1335 1330 1220 Weight 60.328 kg 63.14 kg 62.414 kg 69.672 kg NAD RRR CTA, dec BS at lung bases but no rale soft NT/ND no LE edema CBC, BMP 03/29/19 05:26 03/29/19 05:26 Current Medications Albuterol Sulfate (Ventolin Hfa Inhaler -) 2 puff IH Q6H PRN PRN Reason: SHORT OF BREATH/WHEEZING Aspirin (Asa -) 81 mg PO DAILY [facility] Last Admin: 03/29/19 10:12 Dose: 81 mg Fentanyl (Sublimaze Injection -) 25 mcg IVPUSH [id number] PRN PRN Reason: PAIN-PACU ORDER X 4 DOSES ONLY Last Admin: 03/26/19 17:20 Dose: 25 mcg Lactated Ringer's (Lactated Ringers Solution) 1,000 ml in 1,000 mls @ 125 mls/ hr IV ASDIR [facility] Last Admin: 03/28/19 12:27 Dose: 125 mls/hr Cefazolin Sodium/Dextrose (Ancef 2 Gm Premixed Ivpb -) 2 gm in 50 mls @ 100 mls /hr IVPB BID [facility] Last Admin: 03/29/19 10:12 Dose: 100 mls/hr Insulin Aspart (Novolog Vial Sliding Scale -) 0 - 10 vial SQ ACHS [facility]; Protocol Last Admin: 03/29/19 11:59 Dose: Not Given Metformin HCl (Glucophage -) 1,000 mg PO ACBK [facility] Last Admin: 03/29/19 06:21 Dose: 1,000 mg Metoprolol Succinate (Toprol Xl -) 25 mg PO DAILY [facility] Last Admin: 03/29/19 10:12 Dose: 25 mg Mometasone Furoate (Asmanex 110mcg -) 1 puff IH BID [facility] Last Admin: 03/29/19 10:13 Dose: 1 puff Non-Formulary Medication (Nateglinide) 120 mg PO TID [facility] Pioglitazone HCl (Actos -) 15 mg PO ACBK [facility] Last Admin: 03/29/19 06:21 Dose: 15 mg Ranitidine HCl (Zantac -) 150 mg PO BID [facility] Last Admin: 03/29/19 10:12 Dose: 150 mg 78 year old woman with history of CKD stage 3, hypertension, DM Type 2, CAD, anemia presented from home with weakness and found to have liver injury from CBD stone, gram negative bacteremia and Cr of 1.4 1. CKD stage 3 with acute kidney injury in setting of gram negative bacteremia and choledocolithiasis 2. CBD stone 3. Gram negative bacteremia 4. Anemia 5. DM on metformin Cr continues to rise as of today but appears to be plateauing urine studies consistent with pre-renal injury continue LR at 100 cc per hour keep MAP > 65-70 avoid IV contrast or nephrotoxins GI follow up antibiotics as per ID Thank you Dillon Ortega DO
--- NOTE | 2019-03-29 17:56 | PN ---
Progress Note, Physician History of Present Illness: GI FOLLOW UP NOTE Patient examined and case discussed with Dr Feng Patient complain of RUQ pain and states having 2 episodes of non-bloody diarrhea this morning. Denies nausea, vomiting, rectal bleeding, or melena. Labs reviewed LFTs elevated but showing downtrend. - Current Medication List Current Medications: Active Medications Albuterol Sulfate (Ventolin Hfa Inhaler -) 2 puff IH Q6H PRN PRN Reason: SHORT OF BREATH/WHEEZING Aspirin (Asa -) 81 mg PO DAILY [facility] Last Admin: 03/29/19 10:12 Dose: 81 mg Fentanyl (Sublimaze Injection -) 25 mcg IVPUSH [id number] PRN PRN Reason: PAIN-PACU ORDER X 4 DOSES ONLY Last Admin: 03/26/19 17:20 Dose: 25 mcg Cefazolin Sodium/Dextrose (Ancef 2 Gm Premixed Ivpb -) 2 gm in 50 mls @ 100 mls /hr IVPB BID [facility] Last Admin: 03/29/19 10:12 Dose: 100 mls/hr Insulin Aspart (Novolog Vial Sliding Scale -) 0 - 10 vial SQ ACHS [facility]; Protocol Last Admin: 03/29/19 17:03 Dose: Not Given Metformin HCl (Glucophage -) 1,000 mg PO ACBK [facility] Last Admin: 03/29/19 06:21 Dose: 1,000 mg Metoprolol Succinate (Toprol Xl -) 25 mg PO DAILY [facility] Last Admin: 03/29/19 10:12 Dose: 25 mg Mometasone Furoate (Asmanex 110mcg -) 1 puff IH BID [facility] Last Admin: 03/29/19 10:13 Dose: 1 puff Non-Formulary Medication (Nateglinide) 120 mg PO TID [facility] Pioglitazone HCl (Actos -) 15 mg PO ACBK [facility] Last Admin: 03/29/19 06:21 Dose: 15 mg Ranitidine HCl (Zantac -) 150 mg PO BID [facility] Last Admin: 03/29/19 10:12 Dose: 150 mg - Objective Vital Signs: Vital Signs Temperature 98 F 03/29/19 15:30 Pulse Rate 74 03/29/19 15:30 Respiratory Rate 20 03/29/19 15:30 Blood Pressure 132/74 03/29/19 15:30 O2 Sat by Pulse Oximetry (%) 96 03/29/19 15:30 Constitutional: Yes: No Distress, Calm Eyes: Yes: Conjunctiva Clear HENT: Yes: Atraumatic Cardiovascular: Yes: Regular Rate and Rhythm Respiratory: Yes: Regular, CTA Bilaterally Gastrointestinal: Yes: Normal Bowel Sounds, Soft, Tenderness (RUQ, epigastric, LUQ) Neurological: Yes: Alert, Oriented Psychiatric: Yes: Alert, Oriented Labs: CBC, BMP 03/29/19 05:26 03/29/19 05:26 INR, PTT INR 1.12 (0.83-1.09) H 03/24/19 15:20 Problem List - Problems (1) Abnormal liver enzymes Assessment/Plan: >AST 63, ALT 108, Alk Phos 253 >monitor LFTs daily Code(s): R74.8 - ABNORMAL LEVELS OF OTHER SERUM ENZYMES (2) Choledocholithiasis Assessment/Plan: >Abdominal MRI shows marked CBD dilatation measuring up to 2.1cm with mild to moderate intrahepatic biliary ductal dilatation, large filling defects/stones seen in the proximal hepatic duct and mid CBD measuring 2cm in addition to layering sludge in distal CBD >patient had ERCP and unable to remove stone and stent placed--pending possible transfer to tertiary center Code(s): K80.50 - CALCULUS OF BILE DUCT W/O CHOLANGITIS OR CHOLECYST W/O OBST
--- NOTE | 2019-03-29 18:12 | PN ---
Progress Note, Physician History of Present Illness: Pt w/o abd pain, N, V, SOB, CP, palpitations. Pt eating solid food. - Current Medication List Current Medications: Active Medications Albuterol Sulfate (Ventolin Hfa Inhaler -) 2 puff IH Q6H PRN PRN Reason: SHORT OF BREATH/WHEEZING Aspirin (Asa -) 81 mg PO DAILY [facility] Last Admin: 03/29/19 10:12 Dose: 81 mg Fentanyl (Sublimaze Injection -) 25 mcg IVPUSH [id number] PRN PRN Reason: PAIN-PACU ORDER X 4 DOSES ONLY Last Admin: 03/26/19 17:20 Dose: 25 mcg Cefazolin Sodium/Dextrose (Ancef 2 Gm Premixed Ivpb -) 2 gm in 50 mls @ 100 mls /hr IVPB BID [facility] Last Admin: 03/29/19 10:12 Dose: 100 mls/hr Insulin Aspart (Novolog Vial Sliding Scale -) 0 - 10 vial SQ [facility]; Protocol Last Admin: 03/29/19 17:03 Dose: Not Given Metformin HCl (Glucophage -) 1,000 mg PO ACBK [facility] Last Admin: 03/29/19 06:21 Dose: 1,000 mg Metoprolol Succinate (Toprol Xl -) 25 mg PO DAILY [facility] Last Admin: 03/29/19 10:12 Dose: 25 mg Mometasone Furoate (Asmanex 110mcg -) 1 puff IH BID [facility] Last Admin: 03/29/19 10:13 Dose: 1 puff Non-Formulary Medication (Nateglinide) 120 mg PO TID [facility] Pioglitazone HCl (Actos -) 15 mg PO ACBK [facility] Last Admin: 03/29/19 06:21 Dose: 15 mg Ranitidine HCl (Zantac -) 150 mg PO BID [facility] Last Admin: 03/29/19 10:12 Dose: 150 mg - Objective Vital Signs: Vital Signs Temperature 98 F 03/29/19 15:30 Pulse Rate 74 03/29/19 15:30 Respiratory Rate 20 03/29/19 15:30 Blood Pressure 132/74 03/29/19 15:30 O2 Sat by Pulse Oximetry (%) 96 03/29/19 15:30 Constitutional: Yes: No Distress, Calm Cardiovascular: Yes: Regular Rate and Rhythm, S1, S2 Respiratory: Yes: Regular, CTA Bilaterally. No: Rales Gastrointestinal: Yes: Normal Bowel Sounds, Soft. No: Tenderness Edema: No Neurological: Yes: Alert, Oriented Labs: CBC, BMP 03/29/19 05:26 03/29/19 05:26 INR, PTT INR 1.12 (0.83-1.09) H 03/24/19 15:20 Problem List - Problems (1) Weakness Code(s): R53.1 - WEAKNESS (2) Anemia Code(s): D64.9 - ANEMIA, UNSPECIFIED Qualifiers: Anemia type: unspecified type Qualified Code(s): D64.9 - Anemia, unspecified (3) Presence of stent in coronary artery in patient with coronary artery disease Code(s): I25.10 - ATHSCL HEART DISEASE OF [place] CORONARY ARTERY W/O ANG PCTRS; Z95.5 - PRESENCE OF CORONARY ANGIOPLASTY IMPLANT AND GRAFT (4) COPD (chronic obstructive pulmonary disease) Code(s): J44.9 - CHRONIC OBSTRUCTIVE PULMONARY DISEASE, UNSPECIFIED (5) NSTEMI (non-ST elevated myocardial infarction) Code(s): I21.4 - NON-ST ELEVATION (NSTEMI) MYOCARDIAL INFARCTION (6) Choledocholithiasis Code(s): K80.50 - CALCULUS OF BILE DUCT W/O CHOLANGITIS OR CHOLECYST W/O OBST (7) Bacteremia due to Gram-negative bacteria Code(s): R78.81 - BACTEREMIA (8) Abnormal liver enzymes Code(s): R74.8 - ABNORMAL LEVELS OF OTHER SERUM ENZYMES (9) Adrenal hyperplasia Code(s): E27.8 - OTHER SPECIFIED DISORDERS OF ADRENAL GLAND (10) Biliary sepsis Code(s): K83.09 - OTHER CHOLANGITIS (11) Symptomatic anemia Code(s): D64.9 - ANEMIA, UNSPECIFIED (12) RANDY (acute kidney injury) Code(s): N17.9 - ACUTE KIDNEY FAILURE, UNSPECIFIED (13) Chronic renal insufficiency Code(s): N18.9 - CHRONIC KIDNEY DISEASE, UNSPECIFIED Assessment/Plan S/p PRBC Tx, 2 units S/p ERCP, large stone, not able to be taken out and less likely to be able to pass. To f/u with GI about further treatment Creatinine is trending up, today at slower rate; to monitor renal function. Cardio, GI, Renal, ID consults are appreciated AM labs Pt's care was d/w her nurse
[2019-03-29 20:10] LABS: HEP B CORE AB, TOT Negative (Negative)
[2019-03-30] MEDS ORDERED: PT OWN MED DRAWER 7, Y5N ONE ×2 (05:24→09:43)
[2019-03-30] MEDS: metFORMIN HCL 500 MG TABLET (FP) PO SCH (06:12)
[2019-03-30] MEDS: PIOGLITAZONE HCL 15 MG TABLET (FP) PO SCH (06:13)
[2019-03-30 06:47] LABS: HEMATOCRIT 31.3 % (32.4-45.2); MCH 26.4 pg (25.7-33.7); MEAN CELL VOLUME 82.5 fl (80-96); PLATELET COUNT 250 K/MM3 (134-434); RDW 18.1 % (11.6-15.6); WHITE BLOOD COUNT 6.7 K/mm3 (4.0-10.0)
[2019-03-30] MEDS: INSULIN SLIDING SCALE (NOVOLOG) 1 VIAL SQ SCH ×4 (07:10→22:39)
[2019-03-30 07:12] LABS: BILIRUBIN,TOTAL 0.5 mg/dL (0.2-1); BLOOD UREA NITROGEN 51.3 mg/dL (7-18); CALCIUM 7.9 mg/dL (8.5-10.1); CREATININE 2.3 mg/dL (0.55-1.3); MAGNESIUM 1.5 mg/dL (1.8-2.4); PHOSPHOROUS 4.2 mg/dL (2.5-4.9); POTASSIUM 4.8 mmol/L (3.5-5.1); TOT PROT 5.2 g/dl (6.4-8.2)
[2019-03-30] MEDS: ASPIRIN 81 MG CHEWABLE TABLETS PO SCH (09:44)
[2019-03-30] MEDS: RANITIDINE HCL 150 MG TABLET (FP) PO SCH ×2 (09:45→22:34)
[2019-03-30] MEDS: metoPROLOL SUCCINATE 25 MG TAB.SR.24H (FP) PO SCH (09:45)
[2019-03-30] MEDS: CEFAZOLIN 2 GM/D5W 2 GM/50 ML ML IVPB SCH ×2 (09:45→22:28)
[2019-03-30] MEDS: MOMETASONE FUROATE 110 MCG/IH INHALER IH SCH ×2 (09:46→22:28)
--- NOTE | 2019-03-30 11:32 | PN ---
Progress Note (short form) - Note Progress Note: Covering for Dr. Elliott 78-year-old [place] female with known case of coronary artery disease, angina pectoris status post PCI/stenting, history of recurring anemia, hypertension, hypertensive cardiovascular disease, noninsulin dependent diabetes mellitus, oxygen dependent COPD, history of hiatus hernia/gastroesophageal reflux and history of tobacco abuse. Patient is being treated for Gram-negative septicemia related to cholangitis and a large gallstone which could not be extracted with sphinctertomy and is pending transfer to go to a tertiary care center for further management per GI no chest pain, palps, dizziness, dyspnea tele: sinus rhythm, 5 beat NSVT Current Medications Albuterol Sulfate (Ventolin Hfa Inhaler -) 2 puff IH Q6H PRN PRN Reason: SHORT OF BREATH/WHEEZING Aspirin (Asa -) 81 mg PO DAILY [facility] Last Admin: 03/30/19 09:44 Dose: 81 mg Fentanyl (Sublimaze Injection -) 25 mcg IVPUSH [id number] PRN PRN Reason: PAIN-PACU ORDER X 4 DOSES ONLY Last Admin: 03/26/19 17:20 Dose: 25 mcg Cefazolin Sodium/Dextrose (Ancef 2 Gm Premixed Ivpb -) 2 gm in 50 mls @ 100 mls /hr IVPB BID [facility] Last Admin: 03/30/19 09:45 Dose: 100 mls/hr Insulin Aspart (Novolog Vial Sliding Scale -) 0 - 10 vial SQ ACHS [facility]; Protocol Last Admin: 03/29/19 22:04 Dose: 2 units Metformin HCl (Glucophage -) 1,000 mg PO ACBK [facility] Last Admin: 03/30/19 06:12 Dose: 1,000 mg Metoprolol Succinate (Toprol Xl -) 25 mg PO DAILY [facility] Last Admin: 03/30/19 09:45 Dose: 25 mg Mometasone Furoate (Asmanex 110mcg -) 1 puff IH BID [facility] Last Admin: 03/30/19 09:46 Dose: 1 puff Non-Formulary Medication (Nateglinide) 120 mg PO TID [facility] Pioglitazone HCl (Actos -) 15 mg PO ACBK [facility] Last Admin: 03/30/19 06:13 Dose: 15 mg Ranitidine HCl (Zantac -) 150 mg PO BID [facility] Last Admin: 03/30/19 09:45 Dose: 150 mg Vital Signs Period Temp Pulse Resp BP Sys/Burrell Pulse Ox Last 24 Hr 97.9 F-98.3 F 74-95 20-20 130-141/64-74 96-98 NAD Neck: No JVD Heart: nl s1, s2, no murmur lungs: CTAB Abdomen: soft, nt, nd, +bs Extremities: no edema no jaundice, diaphoresis aox3 not agitated IMPRESSION: 1. Coronary artery disease, status post percutaneous coronary intervention/ stenting, clinical presentation and lab findings consistent with acute coronary syndrome. 2. Acute cholangitis/ impacted gallstone. 3. Anemia, etiology to be determined. 4. Chronic obstructive pulmonary disease, oxygen dependent. 5. Noninsulin dependent diabetes mellitus. 6. Status post cerebrovascular accident without residual sequelae. 7. Hypertension, currently normotensive. 8. History of tobacco abuse. 9. History of hiatus hernia and gastroesophageal reflux disease. 10. Dyslipidemia. 11. Acute on chronic kidney injury. RECOMMENDATION: acute cholangitis/impacted gallstone - manage per GI - pending transfer to tertiary care center CAD - continue aspirin, per Dr. Elliott, latest cardiac catherization report is being obtained. DM - manage per primary anemia - manage per primary
--- NOTE | 2019-03-30 15:56 | PN ---
Progress Note (short form) - Note Progress Note: Renal follow up for RANDY/CKD Pt seen and examined at the bedside awake and alert neck supple, no JVD Vital Signs Temperature 98.3 F 03/30/19 14:00 Pulse Rate 86 03/30/19 14:00 Respiratory Rate 20 03/30/19 14:00 Blood Pressure 161/76 03/30/19 14:00 O2 Sat by Pulse Oximetry (%) 98 03/29/19 21:00 Intake & Output 03/27/19 03/28/19 03/29/19 03/30/19 23:59 23:59 23:59 23:59 Intake Total 1885 2330 2120 160 Output Total 550 1000 1000 400 Balance 1335 1330 1120 -240 Weight 63.14 kg 62.414 kg 69.672 kg 69.581 kg NAD RRR CTA, dec BS at lung bases but no rale soft NT/ND no LE edema CBC, BMP 03/30/19 06:07 03/30/19 06:07 Current Medications Albuterol Sulfate (Ventolin Hfa Inhaler -) 2 puff IH Q6H PRN PRN Reason: SHORT OF BREATH/WHEEZING Aspirin (Asa -) 81 mg PO DAILY [facility] Last Admin: 03/30/19 09:44 Dose: 81 mg Fentanyl (Sublimaze Injection -) 25 mcg IVPUSH [id number] PRN PRN Reason: PAIN-PACU ORDER X 4 DOSES ONLY Last Admin: 03/26/19 17:20 Dose: 25 mcg Cefazolin Sodium/Dextrose (Ancef 2 Gm Premixed Ivpb -) 2 gm in 50 mls @ 100 mls /hr IVPB BID [facility] Last Admin: 03/30/19 09:45 Dose: 100 mls/hr Insulin Aspart (Novolog Vial Sliding Scale -) 0 - 10 vial SQ ACHS [facility]; Protocol Last Admin: 03/30/19 13:43 Dose: 2 units Metformin HCl (Glucophage -) 1,000 mg PO ACBK [facility] Last Admin: 03/30/19 06:12 Dose: 1,000 mg Metoprolol Succinate (Toprol Xl -) 25 mg PO DAILY [facility] Last Admin: 03/30/19 09:45 Dose: 25 mg Mometasone Furoate (Asmanex 110mcg -) 1 puff IH BID [facility] Last Admin: 03/30/19 09:46 Dose: 1 puff Non-Formulary Medication (Nateglinide) 120 mg PO TID [facility] Pioglitazone HCl (Actos -) 15 mg PO ACBK [facility] Last Admin: 03/30/19 06:13 Dose: 15 mg Ranitidine HCl (Zantac -) 150 mg PO BID [facility] Last Admin: 03/30/19 09:45 Dose: 150 mg 78 year old woman with history of CKD stage 3, hypertension, DM Type 2, CAD, anemia presented from home with weakness and found to have liver injury from CBD stone, gram negative bacteremia and Cr of 1.4 1. CKD stage 3 with acute kidney injury in setting of gram negative bacteremia and choledocolithiasis 2. CBD stone 3. Gram negative bacteremia 4. Anemia 5. DM on metformin Cr stable today, has good urine output volume status is stable urine studies consistent with pre-renal injury off IVF for now as volume status is improved keep MAP > 65-70 avoid IV contrast or nephrotoxins GI follow up antibiotics as per ID Thank you Dillon Ortega DO
--- NOTE | 2019-03-30 17:09 | PN ---
Progress Note, Physician History of Present Illness: Pt w/o abd pain, N, V, SOB, CP, palpitations. Pt is tolerating solid food. - Current Medication List Current Medications: Active Medications Albuterol Sulfate (Ventolin Hfa Inhaler -) 2 puff IH Q6H PRN PRN Reason: SHORT OF BREATH/WHEEZING Aspirin (Asa -) 81 mg PO DAILY [facility] Last Admin: 03/30/19 09:44 Dose: 81 mg Fentanyl (Sublimaze Injection -) 25 mcg IVPUSH [id number] PRN PRN Reason: PAIN-PACU ORDER X 4 DOSES ONLY Last Admin: 03/26/19 17:20 Dose: 25 mcg Cefazolin Sodium/Dextrose (Ancef 2 Gm Premixed Ivpb -) 2 gm in 50 mls @ 100 mls /hr IVPB BID [facility] Last Admin: 03/30/19 09:45 Dose: 100 mls/hr Insulin Aspart (Novolog Vial Sliding Scale -) 0 - 10 vial SQ ACHS [facility]; Protocol Last Admin: 03/30/19 13:43 Dose: 2 units Metformin HCl (Glucophage -) 1,000 mg PO ACBK [facility] Last Admin: 03/30/19 06:12 Dose: 1,000 mg Metoprolol Succinate (Toprol Xl -) 25 mg PO DAILY [facility] Last Admin: 03/30/19 09:45 Dose: 25 mg Mometasone Furoate (Asmanex 110mcg -) 1 puff IH BID [facility] Last Admin: 03/30/19 09:46 Dose: 1 puff Non-Formulary Medication (Nateglinide) 120 mg PO TID [facility] Pioglitazone HCl (Actos -) 15 mg PO ACBK [facility] Last Admin: 03/30/19 06:13 Dose: 15 mg Ranitidine HCl (Zantac -) 150 mg PO BID [facility] Last Admin: 03/30/19 09:45 Dose: 150 mg - Objective Vital Signs: Vital Signs Temperature 98.6 F 03/30/19 16:36 Pulse Rate 92 H 03/30/19 16:36 Respiratory Rate 20 03/30/19 16:36 Blood Pressure 154/77 03/30/19 16:36 O2 Sat by Pulse Oximetry (%) 98 03/29/19 21:00 Constitutional: Yes: No Distress, Calm Cardiovascular: Yes: Regular Rate and Rhythm, S1, S2 Respiratory: Yes: Regular, CTA Bilaterally. No: Rales Gastrointestinal: Yes: Normal Bowel Sounds, Soft. No: Tenderness Edema: No Neurological: Yes: Alert, Oriented Labs: CBC, BMP 03/30/19 06:07 03/30/19 06:07 INR, PTT INR 1.12 (0.83-1.09) H 03/24/19 15:20 Problem List - Problems (1) Weakness Code(s): R53.1 - WEAKNESS (2) Anemia Code(s): D64.9 - ANEMIA, UNSPECIFIED Qualifiers: Anemia type: unspecified type Qualified Code(s): D64.9 - Anemia, unspecified (3) Presence of stent in coronary artery in patient with coronary artery disease Code(s): I25.10 - ATHSCL HEART DISEASE OF [place] CORONARY ARTERY W/O ANG PCTRS; Z95.5 - PRESENCE OF CORONARY ANGIOPLASTY IMPLANT AND GRAFT (4) COPD (chronic obstructive pulmonary disease) Code(s): J44.9 - CHRONIC OBSTRUCTIVE PULMONARY DISEASE, UNSPECIFIED (5) NSTEMI (non-ST elevated myocardial infarction) Code(s): I21.4 - NON-ST ELEVATION (NSTEMI) MYOCARDIAL INFARCTION (6) Choledocholithiasis Code(s): K80.50 - CALCULUS OF BILE DUCT W/O CHOLANGITIS OR CHOLECYST W/O OBST (7) Bacteremia due to Gram-negative bacteria Code(s): R78.81 - BACTEREMIA (8) Abnormal liver enzymes Code(s): R74.8 - ABNORMAL LEVELS OF OTHER SERUM ENZYMES (9) Adrenal hyperplasia Code(s): E27.8 - OTHER SPECIFIED DISORDERS OF ADRENAL GLAND (10) Biliary sepsis Code(s): K83.09 - OTHER CHOLANGITIS (11) Symptomatic anemia Code(s): D64.9 - ANEMIA, UNSPECIFIED (12) RANDY (acute kidney injury) Code(s): N17.9 - ACUTE KIDNEY FAILURE, UNSPECIFIED (13) Chronic renal insufficiency Code(s): N18.9 - CHRONIC KIDNEY DISEASE, UNSPECIFIED Assessment/Plan S/p PRBC Tx, 2 units S/p ERCP, large stone, not able to be taken out and less likely to be able to pass. To f/u with GI about further treatment Creatinine is elevated but stable; to monitor renal function. Cardio, GI, Renal, ID consults are appreciated Case was d/w Dr Feng; to consider switching pt to PO meds and DC home w office f/u AM labs Pt's care was d/w her nurse
--- NOTE | 2019-03-30 19:33 | PN ---
Progress Note, Physician History of Present Illness: GI FOLLOW UP NOTE Patient examined and case discussed with Dr Feng Patient complain of heartburn and felt relief with Mylanta. Patient states still having abdominal pain but says it is improving. Denies nausea, vomiting, rectal bleeding, or melena. Labs reviewed LFTs elevated but showing downtrend. - Current Medication List Current Medications: Active Medications Albuterol Sulfate (Ventolin Hfa Inhaler -) 2 puff IH Q6H PRN PRN Reason: SHORT OF BREATH/WHEEZING Aspirin (Asa -) 81 mg PO DAILY [facility] Last Admin: 03/30/19 09:44 Dose: 81 mg Fentanyl (Sublimaze Injection -) 25 mcg IVPUSH [id number] PRN PRN Reason: PAIN-PACU ORDER X 4 DOSES ONLY Last Admin: 03/26/19 17:20 Dose: 25 mcg Cefazolin Sodium/Dextrose (Ancef 2 Gm Premixed Ivpb -) 2 gm in 50 mls @ 100 mls /hr IVPB BID [facility] Last Admin: 03/30/19 09:45 Dose: 100 mls/hr Insulin Aspart (Novolog Vial Sliding Scale -) 0 - 10 vial SQ ACHS [facility]; Protocol Last Admin: 03/30/19 17:20 Dose: Not Given Metformin HCl (Glucophage -) 1,000 mg PO ACBK [facility] Last Admin: 03/30/19 06:12 Dose: 1,000 mg Metoprolol Succinate (Toprol Xl -) 25 mg PO DAILY [facility] Last Admin: 03/30/19 09:45 Dose: 25 mg Mometasone Furoate (Asmanex 110mcg -) 1 puff IH BID [facility] Last Admin: 03/30/19 09:46 Dose: 1 puff Non-Formulary Medication (Nateglinide) 120 mg PO TID [facility] Pioglitazone HCl (Actos -) 15 mg PO ACBK [facility] Last Admin: 03/30/19 06:13 Dose: 15 mg Ranitidine HCl (Zantac -) 150 mg PO BID [facility] Last Admin: 03/30/19 09:45 Dose: 150 mg - Objective Vital Signs: Vital Signs Temperature 98.6 F 03/30/19 16:36 Pulse Rate 92 H 03/30/19 16:36 Respiratory Rate 20 03/30/19 16:36 Blood Pressure 154/77 03/30/19 16:36 O2 Sat by Pulse Oximetry (%) 98 03/29/19 21:00 Constitutional: Yes: No Distress, Calm Eyes: Yes: Conjunctiva Clear HENT: Yes: Atraumatic Cardiovascular: Yes: Regular Rate and Rhythm Respiratory: Yes: Regular, CTA Bilaterally, On Nasal O2 Gastrointestinal: Yes: Normal Bowel Sounds, Soft, Tenderness, Epigastrium Neurological: Yes: Alert, Oriented Psychiatric: Yes: Alert, Oriented Labs: CBC, BMP 03/30/19 06:07 03/30/19 06:07 INR, PTT INR 1.12 (0.83-1.09) H 03/24/19 15:20 <Nay Thomas - Last Filed: 03/30/19 19:30> - Current Medication List Current Medications: Active Medications Albuterol Sulfate (Ventolin Hfa Inhaler -) 2 puff IH Q6H PRN PRN Reason: SHORT OF BREATH/WHEEZING Aspirin (Asa -) 81 mg PO DAILY [facility] Last Admin: 03/31/19 10:01 Dose: 81 mg Benzocaine (Americaine Ointment -) 1 applic TP BID PRN PRN Reason: HEMORRHOIDS Last Admin: 03/30/19 22:28 Dose: 1 applic Docusate Sodium (Colace -) 100 mg PO BID [facility] Last Admin: 03/31/19 10:01 Dose: 100 mg Fentanyl (Sublimaze Injection -) 25 mcg IVPUSH [id number] PRN PRN Reason: PAIN-PACU ORDER X 4 DOSES ONLY Last Admin: 03/26/19 17:20 Dose: 25 mcg Cefazolin Sodium/Dextrose (Ancef 2 Gm Premixed Ivpb -) 2 gm in 50 mls @ 100 mls /hr IVPB BID [facility] Last Admin: 03/31/19 10:00 Dose: 100 mls/hr Insulin Aspart (Novolog Vial Sliding Scale -) 1 vial SQ ACHS [facility]; Protocol Last Admin: 03/31/19 17:22 Dose: 6 units Metformin HCl (Glucophage -) 1,000 mg PO ACBK [facility] Last Admin: 03/31/19 06:00 Dose: 1,000 mg Metoprolol Succinate (Toprol Xl -) 25 mg PO DAILY [facility] Last Admin: 03/31/19 10:01 Dose: 25 mg Mometasone Furoate (Asmanex 110mcg -) 1 puff IH BID [facility] Last Admin: 03/31/19 10:01 Dose: 1 puff Non-Formulary Medication (Nateglinide) 120 mg PO TID [facility] Pioglitazone HCl (Actos -) 15 mg PO ACBK [facility] Last Admin: 03/31/19 06:00 Dose: 15 mg Ranitidine HCl (Zantac -) 150 mg PO BID [facility] Last Admin: 03/31/19 10:00 Dose: 150 mg - Objective Vital Signs: Vital Signs Temperature 98.1 F 03/31/19 17:00 Pulse Rate 95 H 03/31/19 17:00 Respiratory Rate 20 03/31/19 17:00 Blood Pressure 132/63 03/31/19 17:00 O2 Sat by Pulse Oximetry (%) 98 03/29/19 21:00 Additional Findings/Remarks: spoke with Dr Baeza agreed to have outpatient ERCP Labs: CBC, BMP 03/31/19 06:51 03/31/19 06:51 INR, PTT INR 1.12 (0.83-1.09) H 03/24/19 15:20 <John Feng - Last Filed: 03/31/19 19:39> Problem List - Problems (1) Abnormal liver enzymes Assessment/Plan: >AST 42, ALT 41, Alk Phos 238 >monitor LFTs daily Code(s): R74.8 - ABNORMAL LEVELS OF OTHER SERUM ENZYMES (2) Choledocholithiasis Assessment/Plan: >Abdominal MRI shows marked CBD dilatation measuring up to 2.1cm with mild to moderate intrahepatic biliary ductal dilatation, large filling defects/stones seen in the proximal hepatic duct and mid CBD measuring 2cm in addition to layering sludge in distal CBD >patient had ERCP and unable to remove stone and stent placed--pending possible transfer to tertiary center Code(s): K80.50 - CALCULUS OF BILE DUCT W/O CHOLANGITIS OR CHOLECYST W/O OBST <Nay Thomas - Last Filed: 03/30/19 19:30>
[2019-03-30] MEDS ORDERED: BENZOCAINE 28 GM HEMORRHOIDAL OINTMENT TP PRN (21:29)
[2019-03-30] MEDS: DOCUSATE SODIUM 100 MG CAPSULE (FP) PO SCH (22:28)
[2019-03-31] MEDS ORDERED: PT OWN MED DRAWER 7, Y5N ONE (05:24)
[2019-03-31] MEDS: INSULIN SLIDING SCALE (NOVOLOG) 1 VIAL SQ SCH ×4 (06:00→22:10)
[2019-03-31] MEDS: metFORMIN HCL 500 MG TABLET (FP) PO SCH (06:00)
[2019-03-31] MEDS: PIOGLITAZONE HCL 15 MG TABLET (FP) PO SCH (06:00)
[2019-03-31 07:53] LABS: HEMATOCRIT 29.3 % (32.4-45.2); HEMOGLOBIN 9.4 GM/dL (10.7-15.3); MCH 26.6 pg (25.7-33.7); MCHC 32.1 g/dl (32.0-36.0); MEAN PLT VOLUME 8.2 fl (7.5-11.1); PLATELET COUNT 269 K/MM3 (134-434); RBC 3.53 M/mm3 (3.60-5.2); RDW 18.2 % (11.6-15.6); WHITE BLOOD COUNT 7.9 K/mm3 (4.0-10.0)
[2019-03-31 08:18] LABS: ALBUMIN 2.2 g/dl (3.4-5.0); BILIRUBIN,TOTAL 0.5 mg/dL (0.2-1); BLOOD UREA NITROGEN 42.2 mg/dL (7-18); CALCIUM 8.3 mg/dL (8.5-10.1); POTASSIUM 4.7 mmol/L (3.5-5.1); TOT PROT 5.3 g/dl (6.4-8.2)
--- NOTE | 2019-03-31 09:23 | PN ---
Progress Note, Physician History of Present Illness: Pt w/o abd pain, N, V, SOB, CP, palpitations. Pt is tolerating solid food. - Current Medication List Current Medications: Active Medications Albuterol Sulfate (Ventolin Hfa Inhaler -) 2 puff IH Q6H PRN PRN Reason: SHORT OF BREATH/WHEEZING Aspirin (Asa -) 81 mg PO DAILY [facility] Last Admin: 03/30/19 09:44 Dose: 81 mg Benzocaine (Americaine Ointment -) 1 applic TP BID PRN PRN Reason: HEMORRHOIDS Last Admin: 03/30/19 22:28 Dose: 1 applic Docusate Sodium (Colace -) 100 mg PO BID [facility] Last Admin: 03/30/19 22:28 Dose: 100 mg Fentanyl (Sublimaze Injection -) 25 mcg IVPUSH [id number] PRN PRN Reason: PAIN-PACU ORDER X 4 DOSES ONLY Last Admin: 03/26/19 17:20 Dose: 25 mcg Cefazolin Sodium/Dextrose (Ancef 2 Gm Premixed Ivpb -) 2 gm in 50 mls @ 100 mls /hr IVPB BID [facility] Last Admin: 03/30/19 22:28 Dose: 100 mls/hr Insulin Aspart (Novolog Vial Sliding Scale -) 0 - 10 vial SQ ACHS [facility]; Protocol Last Admin: 03/31/19 06:00 Dose: Not Given Metformin HCl (Glucophage -) 1,000 mg PO BK [facility] Last Admin: 03/31/19 06:00 Dose: 1,000 mg Metoprolol Succinate (Toprol Xl -) 25 mg PO DAILY [facility] Last Admin: 03/30/19 09:45 Dose: 25 mg Mometasone Furoate (Asmanex 110mcg -) 1 puff IH BID [facility] Last Admin: 03/30/19 22:28 Dose: 1 puff Non-Formulary Medication (Nateglinide) 120 mg PO TID [facility] Pioglitazone HCl (Actos -) 15 mg PO ACBK [facility] Last Admin: 03/31/19 06:00 Dose: 15 mg Ranitidine HCl (Zantac -) 150 mg PO BID [facility] Last Admin: 03/30/19 22:34 Dose: 150 mg - Objective Vital Signs: Vital Signs Temperature 98.4 F 03/31/19 06:00 Pulse Rate 95 H 03/31/19 06:00 Respiratory Rate 20 03/31/19 06:00 Blood Pressure 132/62 03/31/19 06:00 O2 Sat by Pulse Oximetry (%) 98 03/29/19 21:00 Constitutional: Yes: No Distress, Calm Cardiovascular: Yes: Regular Rate and Rhythm, S1, S2 Respiratory: Yes: Regular, CTA Bilaterally (but coarse BS) Gastrointestinal: Yes: Normal Bowel Sounds, Soft. No: Tenderness Edema: No Neurological: Yes: Alert, Oriented Labs: CBC, BMP 03/31/19 06:51 03/31/19 06:51 INR, PTT INR 1.12 (0.83-1.09) H 03/24/19 15:20 Problem List - Problems (1) Weakness Code(s): R53.1 - WEAKNESS (2) Anemia Code(s): D64.9 - ANEMIA, UNSPECIFIED Qualifiers: Anemia type: unspecified type Qualified Code(s): D64.9 - Anemia, unspecified (3) Presence of stent in coronary artery in patient with coronary artery disease Code(s): I25.10 - ATHSCL HEART DISEASE OF [place] CORONARY ARTERY W/O ANG PCTRS; Z95.5 - PRESENCE OF CORONARY ANGIOPLASTY IMPLANT AND GRAFT (4) COPD (chronic obstructive pulmonary disease) Code(s): J44.9 - CHRONIC OBSTRUCTIVE PULMONARY DISEASE, UNSPECIFIED (5) NSTEMI (non-ST elevated myocardial infarction) Code(s): I21.4 - NON-ST ELEVATION (NSTEMI) MYOCARDIAL INFARCTION (6) Choledocholithiasis Code(s): K80.50 - CALCULUS OF BILE DUCT W/O CHOLANGITIS OR CHOLECYST W/O OBST (7) Bacteremia due to Gram-negative bacteria Code(s): R78.81 - BACTEREMIA (8) Abnormal liver enzymes Code(s): R74.8 - ABNORMAL LEVELS OF OTHER SERUM ENZYMES (9) Adrenal hyperplasia Code(s): E27.8 - OTHER SPECIFIED DISORDERS OF ADRENAL GLAND (10) Biliary sepsis Code(s): K83.09 - OTHER CHOLANGITIS (11) Symptomatic anemia Code(s): D64.9 - ANEMIA, UNSPECIFIED (12) RANDY (acute kidney injury) Code(s): N17.9 - ACUTE KIDNEY FAILURE, UNSPECIFIED (13) Chronic renal insufficiency Code(s): N18.9 - CHRONIC KIDNEY DISEASE, UNSPECIFIED Assessment/Plan S/p PRBC Tx, 2 units S/p ERCP, large stone, not able to be taken out and less likely to be able to pass. To f/u with GI about further treatment Creatinine is improving; to monitor renal function. LFTs are improving Cardio, GI, Renal, ID consults are appreciated Case was d/w Dr Feng, again today; to consider switching pt to PO meds and DC home w office f/u AM labs.
[2019-03-31] MEDS: CEFAZOLIN 2 GM/D5W 2 GM/50 ML ML IVPB SCH ×2 (10:00→22:05)
[2019-03-31] MEDS: RANITIDINE HCL 150 MG TABLET (FP) PO SCH ×2 (10:00→22:23)
[2019-03-31] MEDS: DOCUSATE SODIUM 100 MG CAPSULE (FP) PO SCH ×2 (10:01→22:05)
[2019-03-31] MEDS: MOMETASONE FUROATE 110 MCG/IH INHALER IH SCH ×2 (10:01→22:05)
[2019-03-31] MEDS: ASPIRIN 81 MG CHEWABLE TABLETS PO SCH (10:01)
[2019-03-31] MEDS: metoPROLOL SUCCINATE 25 MG TAB.SR.24H (FP) PO SCH (10:01)
--- NOTE | 2019-03-31 12:07 | PN ---
Progress Note (short form) - Note Progress Note: Covering for Dr. Elliott 78-year-old Syrian female with known case of coronary artery disease, angina pectoris status post PCI/stenting, history of recurring anemia, hypertension, hypertensive cardiovascular disease, noninsulin dependent diabetes mellitus, oxygen dependent COPD, history of hiatus hernia/gastroesophageal reflux and history of tobacco abuse. Patient is being treated for Gram-negative septicemia related to cholangitis and a large gallstone which could not be extracted with sphinctertomy. no chest pain, palps, dizziness, dyspnea, abd pain Current Medications Albuterol Sulfate (Ventolin Hfa Inhaler -) 2 puff IH Q6H PRN PRN Reason: SHORT OF BREATH/WHEEZING Aspirin (Asa -) 81 mg PO DAILY [facility] Last Admin: 03/31/19 10:01 Dose: 81 mg Benzocaine (Americaine Ointment -) 1 applic TP BID PRN PRN Reason: HEMORRHOIDS Last Admin: 03/30/19 22:28 Dose: 1 applic Docusate Sodium (Colace -) 100 mg PO BID [facility] Last Admin: 03/31/19 10:01 Dose: 100 mg Fentanyl (Sublimaze Injection -) 25 mcg IVPUSH [id number] PRN PRN Reason: PAIN-PACU ORDER X 4 DOSES ONLY Last Admin: 03/26/19 17:20 Dose: 25 mcg Cefazolin Sodium/Dextrose (Ancef 2 Gm Premixed Ivpb -) 2 gm in 50 mls @ 100 mls /hr IVPB BID [facility] Last Admin: 03/31/19 10:00 Dose: 100 mls/hr Insulin Aspart (Novolog Vial Sliding Scale -) 0 - 10 vial SQ ACHS [facility]; Protocol Last Admin: 03/31/19 11:54 Dose: 4 units Metformin HCl (Glucophage -) 1,000 mg PO ACBK [facility] Last Admin: 03/31/19 06:00 Dose: 1,000 mg Metoprolol Succinate (Toprol Xl -) 25 mg PO DAILY [facility] Last Admin: 03/31/19 10:01 Dose: 25 mg Mometasone Furoate (Asmanex 110mcg -) 1 puff IH BID [facility] Last Admin: 03/31/19 10:01 Dose: 1 puff Non-Formulary Medication (Nateglinide) 120 mg PO TID [facility] Pioglitazone HCl (Actos -) 15 mg PO ACBK [facility] Last Admin: 03/31/19 06:00 Dose: 15 mg Ranitidine HCl (Zantac -) 150 mg PO BID [facility] Last Admin: 03/31/19 10:00 Dose: 150 mg Vital Signs Period Temp Pulse Resp BP Sys/Burrell Pulse Ox Last 24 Hr 97.7 F-98.6 F 80-95 18-20 123-170/60-77 NAD Neck: No JVD Heart: nl s1, s2, no murmur lungs: CTAB Abdomen: soft, nt, nd, +bs Extremities: no edema no jaundice, diaphoresis aox3 not agitated IMPRESSION: 1. Coronary artery disease, status post percutaneous coronary intervention/ stenting, clinical presentation and lab findings consistent with acute coronary syndrome. 2. Acute cholangitis/ impacted gallstone. 3. Anemia, etiology to be determined. 4. Chronic obstructive pulmonary disease, oxygen dependent. 5. Noninsulin dependent diabetes mellitus. 6. Status post cerebrovascular accident without residual sequelae. 7. Hypertension, currently normotensive. 8. History of tobacco abuse. 9. History of hiatus hernia and gastroesophageal reflux disease. 10. Dyslipidemia. 11. Acute on chronic kidney injury. RECOMMENDATION: acute cholangitis/impacted gallstone - manage per GI CAD - continue aspirin DM - manage per primary anemia - manage per primary
--- NOTE | 2019-03-31 13:37 | PN ---
Progress Note (short form) - Note Progress Note: Renal follow up for RANDY/CKD Pt seen and examined at the bedside awake and alert no acute complaints no abd pain making urine on regular diet now Vital Signs Temperature 98.4 F 03/31/19 10:00 Pulse Rate 90 03/31/19 10:00 Respiratory Rate 18 03/31/19 10:00 Blood Pressure 129/61 03/31/19 10:00 O2 Sat by Pulse Oximetry (%) 98 03/29/19 21:00 Intake & Output 03/28/19 03/29/19 03/30/19 03/31/19 23:59 23:59 23:59 23:59 Intake Total 2330 2120 460 70 Output Total 1000 1000 400 Balance 1330 1120 60 70 Weight 62.414 kg 69.672 kg 69.581 kg 68.946 kg NAD RRR CTA, dec BS at lung bases but no rale soft NT/ND no LE edema CBC, BMP 03/31/19 06:51 03/31/19 06:51 Current Medications Albuterol Sulfate (Ventolin Hfa Inhaler -) 2 puff IH Q6H PRN PRN Reason: SHORT OF BREATH/WHEEZING Aspirin (Asa -) 81 mg PO DAILY [facility] Last Admin: 03/31/19 10:01 Dose: 81 mg Benzocaine (Americaine Ointment -) 1 applic TP BID PRN PRN Reason: HEMORRHOIDS Last Admin: 03/30/19 22:28 Dose: 1 applic Docusate Sodium (Colace -) 100 mg PO BID [facility] Last Admin: 03/31/19 10:01 Dose: 100 mg Fentanyl (Sublimaze Injection -) 25 mcg IVPUSH [id number] PRN PRN Reason: PAIN-PACU ORDER X 4 DOSES ONLY Last Admin: 03/26/19 17:20 Dose: 25 mcg Cefazolin Sodium/Dextrose (Ancef 2 Gm Premixed Ivpb -) 2 gm in 50 mls @ 100 mls /hr IVPB BID [facility] Last Admin: 03/31/19 10:00 Dose: 100 mls/hr Insulin Aspart (Novolog Vial Sliding Scale -) 1 vial SQ ACHS [facility]; Protocol Metformin HCl (Glucophage -) 1,000 mg PO ACBK [facility] Last Admin: 03/31/19 06:00 Dose: 1,000 mg Metoprolol Succinate (Toprol Xl -) 25 mg PO DAILY [facility] Last Admin: 03/31/19 10:01 Dose: 25 mg Mometasone Furoate (Asmanex 110mcg -) 1 puff IH BID [facility] Last Admin: 03/31/19 10:01 Dose: 1 puff Non-Formulary Medication (Nateglinide) 120 mg PO TID [facility] Pioglitazone HCl (Actos -) 15 mg PO ACBK [facility] Last Admin: 03/31/19 06:00 Dose: 15 mg Ranitidine HCl (Zantac -) 150 mg PO BID [facility] Last Admin: 03/31/19 10:00 Dose: 150 mg 78 year old woman with history of CKD stage 3, hypertension, DM Type 2, CAD, anemia presented from home with weakness and found to have liver injury from CBD stone, gram negative bacteremia and Cr of 1.4 1. CKD stage 3 with acute kidney injury in setting of gram negative bacteremia and choledocolithiasis 2. CBD stone 3. Gram negative bacteremia 4. Anemia 5. DM on metformin Cr improving today, volume status is good urine studies consistent with pre-renal injury trend renal function off IVF, if Cr continues to improve can consider d/c and outpatient follow up for renal function GI follow up antibiotics as per ID Thank you Dillon Ortega DO
--- NOTE | 2019-03-31 16:17 | PN ---
Progress Note (short form) - Note Progress Note: feels well ambulating Vital Signs Period Temp Pulse Resp BP Sys/Burrell Pulse Ox Last 24 Hr 97.7 F-98.6 F 80-95 18-20 123-170/60-77 cor-rrr lungs clear abd soft,nt ext no edema CBC, BMP 03/31/19 06:51 03/31/19 06:51 Microbiology 03/29/19 06:08 Blood - Peripheral Venous Blood Culture - Preliminary NO GROWTH OBTAINED AFTER 48 HOURS, INCUBATION TO CONTINUE FOR 3 DAYS. 03/29/19 05:26 Blood - Peripheral Venous Blood Culture - Preliminary NO GROWTH OBTAINED AFTER 48 HOURS, INCUBATION TO CONTINUE FOR 3 DAYS. 03/25/19 21:30 Blood - Peripheral Venous Blood Culture - Final Klebsiella Pneumoniae 03/25/19 21:20 Blood - Peripheral Venous Blood Culture - Final Klebsiella Pneumoniae imp/reccd biliary sepsis-lfts improving-s/p ercp with stent placement klebsiella bacteremia choledocholithiasis copd home oxygen cad s/p stent salena- cr 2.0 today-improving day #6 antibiotics, continue cefazolin gi f/u pending
[2019-03-31 19:36] VITALS: BMI 27.8
[2019-04-01] MEDS: PIOGLITAZONE HCL 15 MG TABLET (FP) PO SCH (06:13)
[2019-04-01] MEDS: metFORMIN HCL 500 MG TABLET (FP) PO SCH (06:13)
[2019-04-01] MEDS: INSULIN SLIDING SCALE (NOVOLOG) 1 VIAL SQ SCH ×4 (06:13→23:11)
[2019-04-01 07:56] LABS: HEMATOCRIT 28.5 % (32.4-45.2); MCH 26.4 pg (25.7-33.7); MCHC 31.7 g/dl (32.0-36.0); MEAN CELL VOLUME 83.3 fl (80-96); MEAN PLT VOLUME 8.6 fl (7.5-11.1); PLATELET COUNT 328 K/MM3 (134-434); RBC 3.42 M/mm3 (3.60-5.2); RDW 18.6 % (11.6-15.6); WHITE BLOOD COUNT 8.3 K/mm3 (4.0-10.0)
[2019-04-01 08:00] LABS: ALBUMIN 2.3 g/dl (3.4-5.0); BILIRUBIN,TOTAL 0.3 mg/dL (0.2-1); BLOOD UREA NITROGEN 33.7 mg/dL (7-18); CALCIUM 8.4 mg/dL (8.5-10.1); CREATININE 1.5 mg/dL (0.55-1.3); MAGNESIUM 1.6 mg/dL (1.8-2.4); PHOSPHOROUS 2.1 mg/dL (2.5-4.9); POTASSIUM 4.6 mmol/L (3.5-5.1); TOT PROT 5.5 g/dl (6.4-8.2)
[2019-04-01] MEDS ORDERED: PT OWN MED DRAWER 7, Y5N ONE (10:36)
[2019-04-01] MEDS: ASPIRIN 81 MG CHEWABLE TABLETS PO SCH (11:09)
[2019-04-01] MEDS: metoPROLOL SUCCINATE 25 MG TAB.SR.24H (FP) PO SCH (11:09)
[2019-04-01] MEDS: CEFAZOLIN 2 GM/D5W 2 GM/50 ML ML IVPB SCH ×2 (11:09→23:06)
[2019-04-01] MEDS: DOCUSATE SODIUM 100 MG CAPSULE (FP) PO SCH ×2 (11:10→23:04)
[2019-04-01] MEDS: MOMETASONE FUROATE 110 MCG/IH INHALER IH SCH ×2 (11:10→23:05)
[2019-04-01] MEDS: RANITIDINE HCL 150 MG TABLET (FP) PO SCH ×2 (11:10→23:04)
--- NOTE | 2019-04-01 11:53 | PN ---
Progress Note (short form) - Note Progress Note: Covering for Dr. Elliott 78-year-old Mong[place]ian female with known case of coronary artery disease, angina pectoris status post PCI/stenting, history of recurring anemia, hypertension, hypertensive cardiovascular disease, noninsulin dependent diabetes mellitus, oxygen dependent COPD, history of hiatus hernia/gastroesophageal reflux and history of tobacco abuse. Patient is being treated for Gram-negative septicemia related to cholangitis and a large gallstone which could not be extracted with sphinctertomy. no chest pain, palps, dizziness, dyspnea, abd pain Current Medications Generic Name Dose Route Start Last Admin Trade Name Freq PRN Reason Stop Dose Admin Albuterol Sulfate 2 puff 03/24/19 22:03 Ventolin Hfa Inhaler - IH Q6H PRN SHORT OF BREATH/WHEEZING Aspirin 81 mg 03/25/19 10:00 04/01/19 11:09 Asa - PO 81 mg DAILY [facility] Administration Benzocaine 1 applic 03/30/19 21:29 03/30/19 22:28 Americaine Ointment - TP 1 applic BID PRN Administration HEMORRHOIDS Docusate Sodium 100 mg 03/30/19 22:00 04/01/19 11:10 Colace - PO 100 mg BID [facility] Administration Fentanyl 25 mcg 03/26/19 15:29 03/26/19 17:20 Sublimaze Injection - IVPUSH 25 mcg [id number] PRN Administration PAIN-PACU ORDER X 4 DOSES ONLY Cefazolin Sodium/Dextrose 2 gm in 50 mls @ 100 mls/hr 03/28/19 22:00 11:09 Ancef 2 Gm Premixed Ivpb - IVPB 100 mls/hr BID [facility] Administration Insulin Aspart 1 vial 03/31/19 12:11 04/01/19 11:10 Novolog Vial Sliding Scale - SQ Not Given ACHS [facility] Protocol Metformin HCl 1,000 mg 03/25/19 07:00 04/01/19 06:13 Glucophage - PO 1,000 mg ACBK [facility] Administration Metoprolol Succinate 25 mg 03/25/19 10:00 04/01/19 11:09 Toprol Xl - PO 25 mg DAILY [facility] Administration Mometasone Furoate 1 puff 03/25/19 10:00 04/01/19 11:10 Asmanex 110mcg - IH 1 puff BID [facility] Administration Non-Formulary Medication 120 mg 03/25/19 06:00 Nateglinide PO TID [facility] Pioglitazone HCl 15 mg 03/25/19 07:00 04/01/19 06:13 Actos - PO 15 mg ACBK [facility] Administration Ranitidine HCl 150 mg 03/24/19 22:15 04/01/19 11:10 Zantac - PO 150 mg BID [facility] Administration Vital Signs Period Temp Pulse Resp BP Sys/Burrell Pulse Ox Last 24 Hr 98.1 F-99.0 F 86-98 20-20 125-154/51-79 NAD Neck: No JVD Heart: nl s1, s2, no murmur lungs: CTAB Abdomen: soft, nt, nd, +bs Extremities: no edema no jaundice, diaphoresis aox3 not agitated IMPRESSION: 1. Coronary artery disease, status post percutaneous coronary intervention/ stenting, clinical presentation and lab findings consistent with acute coronary syndrome. 2. Acute cholangitis/ impacted gallstone. 3. Anemia, etiology to be determined. 4. Chronic obstructive pulmonary disease, oxygen dependent. 5. Noninsulin dependent diabetes mellitus. 6. Status post cerebrovascular accident without residual sequelae. 7. Hypertension, currently normotensive. 8. History of tobacco abuse. 9. History of hiatus hernia and gastroesophageal reflux disease. 10. Dyslipidemia. 11. Acute on chronic kidney injury. RECOMMENDATION: acute cholangitis/impacted gallstone - manage per GI, on abx CAD - continue aspirin DM - manage per primary anemia - manage per primary
[2019-04-01] MEDS ORDERED: INSULIN (NOVOLOG) ASPART 100 UNITS/ML 10ML VIAL ONE (11:54)
--- NOTE | 2019-04-01 15:07 | PN ---
Progress Note, Physician History of Present Illness: Pt w/o abd pain, N, V, SOB, CP, palpitations. Pt is tolerating solid food. - Current Medication List Current Medications: Active Medications Albuterol Sulfate (Ventolin Hfa Inhaler -) 2 puff IH Q6H PRN PRN Reason: SHORT OF BREATH/WHEEZING Aspirin (Asa -) 81 mg PO DAILY [facility] Last Admin: 04/01/19 11:09 Dose: 81 mg Benzocaine (Americaine Ointment -) 1 applic TP BID PRN PRN Reason: HEMORRHOIDS Last Admin: 03/30/19 22:28 Dose: 1 applic Docusate Sodium (Colace -) 100 mg PO BID [facility] Last Admin: 04/01/19 11:10 Dose: 100 mg Fentanyl (Sublimaze Injection -) 25 mcg IVPUSH [id number] PRN PRN Reason: PAIN-PACU ORDER X 4 DOSES ONLY Last Admin: 03/26/19 17:20 Dose: 25 mcg Cefazolin Sodium/Dextrose (Ancef 2 Gm Premixed Ivpb -) 2 gm in 50 mls @ 100 mls /hr IVPB BID [facility] Last Admin: 04/01/19 11:09 Dose: 100 mls/hr Insulin Aspart (Novolog Vial Sliding Scale -) 1 vial SQ ACHS [facility]; Protocol Last Admin: 04/01/19 11:10 Dose: Not Given Metformin HCl (Glucophage -) 1,000 mg PO BK [facility] Last Admin: 04/01/19 06:13 Dose: 1,000 mg Metoprolol Succinate (Toprol Xl -) 25 mg PO DAILY [facility] Last Admin: 04/01/19 11:09 Dose: 25 mg Mometasone Furoate (Asmanex 110mcg -) 1 puff IH BID [facility] Last Admin: 04/01/19 11:10 Dose: 1 puff Non-Formulary Medication (Nateglinide) 120 mg PO TID [facility] Pioglitazone HCl (Actos -) 15 mg PO ACBK [facility] Last Admin: 04/01/19 06:13 Dose: 15 mg Ranitidine HCl (Zantac -) 150 mg PO BID [facility] Last Admin: 04/01/19 11:10 Dose: 150 mg - Objective Vital Signs: Vital Signs Temperature 98.2 F 04/01/19 05:35 Pulse Rate 82 04/01/19 10:00 Respiratory Rate 18 04/01/19 10:00 Blood Pressure 153/63 04/01/19 10:00 O2 Sat by Pulse Oximetry (%) 96 04/01/19 09:00 Constitutional: Yes: No Distress, Calm Cardiovascular: Yes: Regular Rate and Rhythm, S1, S2 Respiratory: Yes: Regular, CTA Bilaterally. No: Rales Gastrointestinal: Yes: Normal Bowel Sounds, Soft. No: Tenderness Edema: No Neurological: Yes: Alert, Oriented Labs: CBC, BMP 04/01/19 06:35 04/01/19 06:35 INR, PTT INR 1.12 (0.83-1.09) H 03/24/19 15:20 Problem List - Problems (1) Weakness Code(s): R53.1 - WEAKNESS (2) Anemia Code(s): D64.9 - ANEMIA, UNSPECIFIED Qualifiers: Anemia type: unspecified type Qualified Code(s): D64.9 - Anemia, unspecified (3) Presence of stent in coronary artery in patient with coronary artery disease Code(s): I25.10 - ATHSCL HEART DISEASE OF [place] CORONARY ARTERY W/O ANG PCTRS; Z95.5 - PRESENCE OF CORONARY ANGIOPLASTY IMPLANT AND GRAFT (4) COPD (chronic obstructive pulmonary disease) Code(s): J44.9 - CHRONIC OBSTRUCTIVE PULMONARY DISEASE, UNSPECIFIED (5) NSTEMI (non-ST elevated myocardial infarction) Code(s): I21.4 - NON-ST ELEVATION (NSTEMI) MYOCARDIAL INFARCTION (6) Choledocholithiasis Code(s): K80.50 - CALCULUS OF BILE DUCT W/O CHOLANGITIS OR CHOLECYST W/O OBST (7) Bacteremia due to Gram-negative bacteria Code(s): R78.81 - BACTEREMIA (8) Abnormal liver enzymes Code(s): R74.8 - ABNORMAL LEVELS OF OTHER SERUM ENZYMES (9) Adrenal hyperplasia Code(s): E27.8 - OTHER SPECIFIED DISORDERS OF ADRENAL GLAND (10) Biliary sepsis Code(s): K83.09 - OTHER CHOLANGITIS (11) Symptomatic anemia Code(s): D64.9 - ANEMIA, UNSPECIFIED (12) RANDY (acute kidney injury) Code(s): N17.9 - ACUTE KIDNEY FAILURE, UNSPECIFIED (13) Chronic renal insufficiency Code(s): N18.9 - CHRONIC KIDNEY DISEASE, UNSPECIFIED Assessment/Plan Pt on IV abtx S/p PRBC Tx, 2 units S/p ERCP, large stone, not able to be taken out and less likely to be able to pass. To f/u with GI about further treatment Creatinine is improving; to monitor renal function. LFTs are improving Cardio, GI, Renal, ID consults are appreciated. AM labs.
--- NOTE | 2019-04-01 16:06 | PN ---
Progress Note (short form) - Note Progress Note: Renal follow up for RANDY/CKD Pt seen and examined at the bedside no acute complaints abd pain improved making urine tolerating regular diet Vital Signs Temperature 98.8 F 04/01/19 14:00 Pulse Rate 96 H 04/01/19 14:00 Respiratory Rate 18 04/01/19 14:00 Blood Pressure 132/69 04/01/19 14:00 O2 Sat by Pulse Oximetry (%) 96 04/01/19 09:00 Intake & Output 03/29/19 03/30/19 03/31/19 04/01/19 23:59 23:59 23:59 23:59 Intake Total 2120 460 445 260 Output Total 1000 400 Balance 1120 60 445 260 Weight 69.672 kg 69.581 kg 68.946 kg 70.035 kg NAD RRR CTA, dec BS at lung bases but no rale soft NT/ND no LE edema CBC, BMP 04/01/19 06:35 04/01/19 06:35 Current Medications Albuterol Sulfate (Ventolin Hfa Inhaler -) 2 puff IH Q6H PRN PRN Reason: SHORT OF BREATH/WHEEZING Aspirin (Asa -) 81 mg PO DAILY [facility] Last Admin: 04/01/19 11:09 Dose: 81 mg Benzocaine (Americaine Ointment -) 1 applic TP BID PRN PRN Reason: HEMORRHOIDS Last Admin: 03/30/19 22:28 Dose: 1 applic Docusate Sodium (Colace -) 100 mg PO BID [facility] Last Admin: 04/01/19 11:10 Dose: 100 mg Fentanyl (Sublimaze Injection -) 25 mcg IVPUSH [id number] PRN PRN Reason: PAIN-PACU ORDER X 4 DOSES ONLY Last Admin: 03/26/19 17:20 Dose: 25 mcg Cefazolin Sodium/Dextrose (Ancef 2 Gm Premixed Ivpb -) 2 gm in 50 mls @ 100 mls /hr IVPB BID [facility] Last Admin: 04/01/19 11:09 Dose: 100 mls/hr Insulin Aspart (Novolog Vial Sliding Scale -) 1 vial SQ ACHS [facility]; Protocol Last Admin: 04/01/19 11:10 Dose: Not Given Metformin HCl (Glucophage -) 1,000 mg PO ACBK [facility] Last Admin: 04/01/19 06:13 Dose: 1,000 mg Metoprolol Succinate (Toprol Xl -) 25 mg PO DAILY [facility] Last Admin: 04/01/19 11:09 Dose: 25 mg Mometasone Furoate (Asmanex 110mcg -) 1 puff IH BID [facility] Last Admin: 04/01/19 11:10 Dose: 1 puff Non-Formulary Medication (Nateglinide) 120 mg PO TID [facility] Pioglitazone HCl (Actos -) 15 mg PO ACBK [facility] Last Admin: 04/01/19 06:13 Dose: 15 mg Ranitidine HCl (Zantac -) 150 mg PO BID [facility] Last Admin: 04/01/19 11:10 Dose: 150 mg 78 year old woman with history of CKD stage 3, hypertension, DM Type 2, CAD, anemia presented from home with weakness and found to have liver injury from CBD stone, gram negative bacteremia and Cr of 1.4 1. CKD stage 3 with acute kidney injury in setting of gram negative bacteremia and choledocolithiasis 2. CBD stone 3. Gram negative bacteremia 4. Anemia 5. DM on metformin Renal function improving oral diet as tolerated GI follow up no further IVF needed D/C Metformin as Cr elevated continue antibiotics as per ID Thank you Dillon Ortega DO
[2019-04-02] MEDS ORDERED: PT OWN MED DRAWER 7, Y5N ONE ×2 (06:17→09:02)
[2019-04-02] MEDS: PIOGLITAZONE HCL 15 MG TABLET (FP) PO SCH (06:24)
[2019-04-02] MEDS: INSULIN SLIDING SCALE (NOVOLOG) 1 VIAL SQ SCH ×2 (06:24→11:28)
[2019-04-02 07:44] LABS: HEMATOCRIT 29.5 % (32.4-45.2); HEMOGLOBIN 9.3 GM/dL (10.7-15.3); MCH 26.3 pg (25.7-33.7); MCHC 31.5 g/dl (32.0-36.0); MEAN CELL VOLUME 83.4 fl (80-96); MEAN PLT VOLUME 8.3 fl (7.5-11.1); PLATELET COUNT 326 K/MM3 (134-434); RBC 3.54 M/mm3 (3.60-5.2); RDW 18.7 % (11.6-15.6)
[2019-04-02 08:10] LABS: BLOOD UREA NITROGEN 27.7 mg/dL (7-18); CALCIUM 8.6 mg/dL (8.5-10.1); CREATININE 1.1 mg/dL (0.55-1.3)
[2019-04-02 08:49] VITALS: BP 139/74; PULSE 79; TEMP 98.7
[2019-04-02] MEDS: RANITIDINE HCL 150 MG TABLET (FP) PO SCH (09:45)
[2019-04-02] MEDS: CEFAZOLIN 2 GM/D5W 2 GM/50 ML ML IVPB SCH (09:45)
[2019-04-02] MEDS: ASPIRIN 81 MG CHEWABLE TABLETS PO SCH (09:48)
[2019-04-02] MEDS: metoPROLOL SUCCINATE 25 MG TAB.SR.24H (FP) PO SCH (09:49)
[2019-04-02] MEDS: DOCUSATE SODIUM 100 MG CAPSULE (FP) PO SCH (09:49)
[2019-04-02] MEDS: MOMETASONE FUROATE 110 MCG/IH INHALER IH SCH (09:51)
--- NOTE | 2019-04-02 11:00 | PN ---
Progress Note, Physician History of Present Illness: Pt w/o abd pain, N, V, SOB, CP, palpitations. Pt is tolerating solid food w/o complains. - Current Medication List Current Medications: Active Medications Albuterol Sulfate (Ventolin Hfa Inhaler -) 2 puff IH Q6H PRN PRN Reason: SHORT OF BREATH/WHEEZING Aspirin (Asa -) 81 mg PO DAILY [facility] Last Admin: 04/02/19 09:48 Dose: 81 mg Benzocaine (Americaine Ointment -) 1 applic TP BID PRN PRN Reason: HEMORRHOIDS Last Admin: 03/30/19 22:28 Dose: 1 applic Docusate Sodium (Colace -) 100 mg PO BID [facility] Last Admin: 04/02/19 09:49 Dose: 100 mg Fentanyl (Sublimaze Injection -) 25 mcg IVPUSH [id number] PRN PRN Reason: PAIN-PACU ORDER X 4 DOSES ONLY Last Admin: 03/26/19 17:20 Dose: 25 mcg Cefazolin Sodium/Dextrose (Ancef 2 Gm Premixed Ivpb -) 2 gm in 50 mls @ 100 mls /hr IVPB BID [facility] Last Admin: 04/02/19 09:45 Dose: 100 mls/hr Insulin Aspart (Novolog Vial Sliding Scale -) 1 vial SQ ACHS [facility]; Protocol Last Admin: 04/02/19 06:24 Dose: Not Given Metoprolol Succinate (Toprol Xl -) 25 mg PO DAILY [facility] Last Admin: 04/02/19 09:49 Dose: 25 mg Mometasone Furoate (Asmanex 110mcg -) 1 puff IH BID [facility] Last Admin: 04/02/19 09:51 Dose: 1 puff Non-Formulary Medication (Nateglinide) 120 mg PO TID [facility] Pioglitazone HCl (Actos -) 15 mg PO ACBK [facility] Last Admin: 04/02/19 06:24 Dose: 15 mg Ranitidine HCl (Zantac -) 150 mg PO BID [facility] Last Admin: 04/02/19 09:45 Dose: 150 mg - Objective Vital Signs: Vital Signs Temperature 98.7 F 04/02/19 08:47 Pulse Rate 79 04/02/19 08:47 Respiratory Rate 18 04/02/19 08:49 Blood Pressure 139/74 04/02/19 08:47 O2 Sat by Pulse Oximetry (%) 100 04/02/19 08:49 Constitutional: Yes: No Distress, Calm Cardiovascular: Yes: Regular Rate and Rhythm, S1, S2 Respiratory: Yes: Regular, CTA Bilaterally (coarse BS). No: Rales Gastrointestinal: Yes: Normal Bowel Sounds, Soft. No: Tenderness, Tenderness, Epigastrium Edema: No Neurological: Yes: Alert, Oriented Labs: CBC, BMP 04/02/19 06:39 04/02/19 06:39 INR, PTT INR 1.12 (0.83-1.09) H 03/24/19 15:20 Problem List - Problems (1) Weakness Code(s): R53.1 - WEAKNESS (2) Anemia Code(s): D64.9 - ANEMIA, UNSPECIFIED Qualifiers: Anemia type: unspecified type Qualified Code(s): D64.9 - Anemia, unspecified (3) Presence of stent in coronary artery in patient with coronary artery disease Code(s): I25.10 - ATHSCL HEART DISEASE OF [place] CORONARY ARTERY W/O ANG PCTRS; Z95.5 - PRESENCE OF CORONARY ANGIOPLASTY IMPLANT AND GRAFT (4) COPD (chronic obstructive pulmonary disease) Code(s): J44.9 - CHRONIC OBSTRUCTIVE PULMONARY DISEASE, UNSPECIFIED (5) NSTEMI (non-ST elevated myocardial infarction) Code(s): I21.4 - NON-ST ELEVATION (NSTEMI) MYOCARDIAL INFARCTION (6) Choledocholithiasis Code(s): K80.50 - CALCULUS OF BILE DUCT W/O CHOLANGITIS OR CHOLECYST W/O OBST (7) Bacteremia due to Gram-negative bacteria Code(s): R78.81 - BACTEREMIA (8) Abnormal liver enzymes Code(s): R74.8 - ABNORMAL LEVELS OF OTHER SERUM ENZYMES (9) Adrenal hyperplasia Code(s): E27.8 - OTHER SPECIFIED DISORDERS OF ADRENAL GLAND (10) Biliary sepsis Code(s): K83.09 - OTHER CHOLANGITIS (11) Symptomatic anemia Code(s): D64.9 - ANEMIA, UNSPECIFIED (12) RANDY (acute kidney injury) Code(s): N17.9 - ACUTE KIDNEY FAILURE, UNSPECIFIED (13) Chronic renal insufficiency Code(s): N18.9 - CHRONIC KIDNEY DISEASE, UNSPECIFIED Assessment/Plan Pt on IV abtx S/p PRBC Tx, 2 units S/p ERCP, large stone, not able to be taken out and less likely to be able to pass. To f/u with GI about further treatment Creatinine is improving; to monitor renal function. LFTs are improving Cardio, GI, Renal, ID consults are appreciated. DC planing; to f/u with ID if pt needs PO abtx
--- NOTE | 2019-04-02 11:30 | PN ---
Progress Note (short form) - Note Progress Note: feels well ambulating no abdominal pain Vital Signs Period Temp Pulse Resp BP Sys/Burrell Pulse Ox Last 24 Hr 98.4 F-98.8 F 74-96 18-20 132-164/69-74 100-100 cor-rrr lungs clear abd soft, nt ext no edema CBC, BMP 04/02/19 06:39 04/02/19 06:39 Microbiology 03/29/19 06:08 Blood - Peripheral Venous Blood Culture - Preliminary NO GROWTH OBTAINED AFTER 96 HOURS, INCUBATION TO CONTINUE FOR 1 DAYS. 03/29/19 05:26 Blood - Peripheral Venous Blood Culture - Preliminary NO GROWTH OBTAINED AFTER 96 HOURS, INCUBATION TO CONTINUE FOR 1 DAYS. 03/25/19 21:30 Blood - Peripheral Venous Blood Culture - Final Klebsiella Pneumoniae 03/25/19 21:20 Blood - Peripheral Venous Blood Culture - Final Klebsiella Pneumoniae Current Medications Albuterol Sulfate (Ventolin Hfa Inhaler -) 2 puff IH Q6H PRN PRN Reason: SHORT OF BREATH/WHEEZING Aspirin (Asa -) 81 mg PO DAILY [facility] Last Admin: 04/02/19 09:48 Dose: 81 mg Benzocaine (Americaine Ointment -) 1 applic TP BID PRN PRN Reason: HEMORRHOIDS Last Admin: 03/30/19 22:28 Dose: 1 applic Docusate Sodium (Colace -) 100 mg PO BID [facility] Last Admin: 04/02/19 09:49 Dose: 100 mg Fentanyl (Sublimaze Injection -) 25 mcg IVPUSH [id number] PRN PRN Reason: PAIN-PACU ORDER X 4 DOSES ONLY Last Admin: 03/26/19 17:20 Dose: 25 mcg Cefazolin Sodium/Dextrose (Ancef 2 Gm Premixed Ivpb -) 2 gm in 50 mls @ 100 mls /hr IVPB BID [facility] Last Admin: 04/02/19 09:45 Dose: 100 mls/hr Insulin Aspart (Novolog Vial Sliding Scale -) 1 vial SQ ACHS [facility]; Protocol Last Admin: 04/02/19 11:28 Dose: 2 units Metoprolol Succinate (Toprol Xl -) 25 mg PO DAILY [facility] Last Admin: 04/02/19 09:49 Dose: 25 mg Mometasone Furoate (Asmanex 110mcg -) 1 puff IH BID [facility] Last Admin: 04/02/19 09:51 Dose: 1 puff Non-Formulary Medication (Nateglinide) 120 mg PO TID [facility] Pioglitazone HCl (Actos -) 15 mg PO ACBK [facility] Last Admin: 04/02/19 06:24 Dose: 15 mg Ranitidine HCl (Zantac -) 150 mg PO BID [facility] Last Admin: 04/02/19 09:45 Dose: 150 mg imp/reccd biliary sepsis-lfts improving-s/p ercp with stent placement klebsiella bacteremia choledocholithiasis copd home oxygen cad s/p stent salena resolved doing well day #8 antibiotics-can d/c antiibotics for fu with GI
--- NOTE | 2019-04-02 11:33 | PN ---
Progress Note (short form) - Note Progress Note: Renal follow up for RANDY/CKD Pt seen and examined at the bedside n complaints no abd pain tolerating oral diet making urine e Vital Signs Temperature 98.7 F 04/02/19 08:47 Pulse Rate 79 04/02/19 08:47 Respiratory Rate 18 04/02/19 08:49 Blood Pressure 139/74 04/02/19 08:47 O2 Sat by Pulse Oximetry (%) 100 04/02/19 08:49 Intake & Output 03/30/19 03/31/19 04/01/19 04/02/19 23:59 23:59 23:59 23:59 Intake Total 460 445 360 50 Output Total 400 Balance 60 445 360 50 Weight 69.581 kg 68.946 kg 70.035 kg NAD RRR CTA soft NT/ND no LE edema CBC, BMP 04/02/19 06:39 04/02/19 06:39 Current Medications Albuterol Sulfate (Ventolin Hfa Inhaler -) 2 puff IH Q6H PRN PRN Reason: SHORT OF BREATH/WHEEZING Aspirin (Asa -) 81 mg PO DAILY [facility] Last Admin: 04/02/19 09:48 Dose: 81 mg Benzocaine (Americaine Ointment -) 1 applic TP BID PRN PRN Reason: HEMORRHOIDS Last Admin: 03/30/19 22:28 Dose: 1 applic Docusate Sodium (Colace -) 100 mg PO BID [facility] Last Admin: 04/02/19 09:49 Dose: 100 mg Fentanyl (Sublimaze Injection -) 25 mcg IVPUSH [id number] PRN PRN Reason: PAIN-PACU ORDER X 4 DOSES ONLY Last Admin: 03/26/19 17:20 Dose: 25 mcg Insulin Aspart (Novolog Vial Sliding Scale -) 1 vial SQ ACHS [facility]; Protocol Last Admin: 04/02/19 11:28 Dose: 2 units Metoprolol Succinate (Toprol Xl -) 25 mg PO DAILY [facility] Last Admin: 04/02/19 09:49 Dose: 25 mg Mometasone Furoate (Asmanex 110mcg -) 1 puff IH BID [facility] Last Admin: 04/02/19 09:51 Dose: 1 puff Non-Formulary Medication (Nateglinide) 120 mg PO TID [facility] Pioglitazone HCl (Actos -) 15 mg PO ACBK [facility] Last Admin: 04/02/19 06:24 Dose: 15 mg Ranitidine HCl (Zantac -) 150 mg PO BID [facility] Last Admin: 04/02/19 09:45 Dose: 150 mg 78 year old woman with history of CKD stage 3, hypertension, DM Type 2, CAD, anemia presented from home with weakness and found to have liver injury from CBD stone, gram negative bacteremia and Cr of 1.4 1. CKD stage 3 with acute kidney injury in setting of gram negative bacteremia and choledocolithiasis 2. CBD stone 3. Gram negative bacteremia 4. Anemia 5. DM on metformin Renal function now improved to baseline tolerating oral diet and off IVF no signs of volume overlaod, no electrolyte or acid/base disturbance GI follow up for for further management of billiary stone off Abx as per ID Thank you, will follow up as needed. Dillon Ortega DO
--- NOTE | 2019-04-02 13:02 | DS ---
Physical Examination Vital Signs: Vital Signs Temperature 98.7 F 04/02/19 08:47 Pulse Rate 79 04/02/19 08:47 Respiratory Rate 18 04/02/19 08:49 Blood Pressure 139/74 04/02/19 08:47 O2 Sat by Pulse Oximetry (%) 100 04/02/19 08:49 Findings/Remarks: See today Progress Note for HPI, ROS, PE, Plan Labs: CBC, BMP 04/02/19 06:39 04/02/19 06:39 Discharge Summary Reason For Visit: HISTORY OF CARDIAC CATHETERIZATION, WEAKNESS,SECON Current Active Problems RANDY (acute kidney injury) (Acute) Abnormal liver enzymes (Acute) Adrenal hyperplasia (Acute) Anemia (Acute) Bacteremia due to Gram-negative bacteria (Acute) Biliary sepsis (Acute) Choledocholithiasis (Acute) Presence of stent in coronary artery in patient with coronary artery disease ( Acute) Symptomatic anemia (Acute) Weak (Acute) Weakness (Acute) Hospital Course: Pt was sent to ER for weakness and anemia, pt was transfused 2 units of PRBC. Pt was noticed to have elevated LFT's, stone in CBD, sepsis; Pt was started on IV abtx. Pt had ERCP and stent placed but her stone is to large to be taken out. Pt also noticed to have RANDY, started on IVF. She improved with currrent treatment. Pt was seen by GI ( Dr. Jagdeep Rao/ Ping), ID (Dr King), Renal (Dr Ortega), Cardio (Dr Younger). Pt to be DC'ed home with close follow up; she would need to referred to a tertiary center for further treatment of CBD stone. Condition: Good - Instructions Diet, Activity, Other Instructions: resume diet Disposition: HOME - Home Medications Comprehensive Discharge Medication List: Ambulatory Orders See Patient discharge instructions
--- NOTE | 2019-04-02 13:14 | PN ---
Progress Note (short form) - Note Progress Note: Covering for Dr. Elliott 78-year-old [place] female with known case of coronary artery disease, angina pectoris status post PCI/stenting, history of recurring anemia, hypertension, hypertensive cardiovascular disease, noninsulin dependent diabetes mellitus, oxygen dependent COPD, history of hiatus hernia/gastroesophageal reflux and history of tobacco abuse. Patient is being treated for Gram-negative septicemia related to cholangitis and a large gallstone which could not be extracted with sphinctertomy. no chest pain, palps, dizziness, dyspnea, abd pain Current Medications Generic Name Dose Route Start Last Admin Trade Name Freq PRN Reason Stop Dose Admin Albuterol Sulfate 2 puff 03/24/19 22:03 Ventolin Hfa Inhaler - IH Q6H PRN SHORT OF BREATH/WHEEZING Aspirin 81 mg 03/25/19 10:00 04/02/19 09:48 Asa - PO 81 mg DAILY [facility] Administration Benzocaine 1 applic 03/30/19 21:29 03/30/19 22:28 Americaine Ointment - TP 1 applic BID PRN Administration HEMORRHOIDS Docusate Sodium 100 mg 03/30/19 22:00 04/02/19 09:49 Colace - PO 100 mg BID [facility] Administration Fentanyl 25 mcg 03/26/19 15:29 03/26/19 17:20 Sublimaze Injection - IVPUSH 25 mcg [id number] PRN Administration PAIN-PACU ORDER X 4 DOSES ONLY Insulin Aspart 1 vial 03/31/19 12:11 04/02/19 11:28 Novolog Vial Sliding Scale - SQ 2 units ACHS [facility] Administration Protocol Metoprolol Succinate 25 mg 03/25/19 10:00 04/02/19 09:49 Toprol Xl - PO 25 mg DAILY [facility] Administration Mometasone Furoate 1 puff 03/25/19 10:00 04/02/19 09:51 Asmanex 110mcg - IH 1 puff BID [facility] Administration Non-Formulary Medication 120 mg 03/25/19 06:00 Nateglinide PO TID [facility] Pioglitazone HCl 15 mg 03/25/19 07:00 04/02/19 06:24 Actos - PO 15 mg ACBK [facility] Administration Ranitidine HCl 150 mg 03/24/19 22:15 04/02/19 09:45 Zantac - PO 150 mg BID [facility] Administration Vital Signs Period Temp Pulse Resp BP Sys/Burrell Pulse Ox Last 24 Hr 98.4 F-98.8 F 74-96 18-20 132-164/69-74 100-100 NAD Neck: No JVD Heart: nl s1, s2, no murmur lungs: CTAB Abdomen: soft, nt, nd, +bs Extremities: no edema no jaundice, diaphoresis aox3 not agitated IMPRESSION: 1. Coronary artery disease, status post percutaneous coronary intervention/ stenting, clinical presentation and lab findings consistent with acute coronary syndrome. 2. Acute cholangitis/ impacted gallstone. 3. Anemia, etiology to be determined. 4. Chronic obstructive pulmonary disease, oxygen dependent. 5. Noninsulin dependent diabetes mellitus. 6. Status post cerebrovascular accident without residual sequelae. 7. Hypertension, currently normotensive. 8. History of tobacco abuse. 9. History of hiatus hernia and gastroesophageal reflux disease. 10. Dyslipidemia. 11. Acute on chronic kidney injury. RECOMMENDATION: acute cholangitis/impacted gallstone - manage per GI, on abx CAD - continue aspirin DM - manage per primary anemia - manage per primary cardiac clifford stable
== END 2019-04-02 13:39 | disposition home or self-care (01) | DRG 871 ==
LOC: JER 14:26 → JERBED 16:37 → J4W 23:54
PROVIDERS: ADMIT Specialist; ATTEND Specialist
PROC: 30233N1 Transfusion of Nonautologous Red Blood Cells into Peripheral Vein, Percutaneous Approach (ICD-10-PCS; principal; 2019-03-24)
PROC: 0F798ZZ Dilation of Common Bile Duct, Via Natural or Artificial Opening Endoscopic (ICD-10-PCS; 2019-03-26)
PROC: BF10YZZ Fluoroscopy of Bile Ducts using Other Contrast (ICD-10-PCS; 2019-03-26)
DX: A41.50 Gram-negative sepsis, unspecified (principal); I22.9 Subsequent ST elevation (STEMI) myocardial infarction of unspecified site; N17.9 Acute kidney failure, unspecified; D64.9 Anemia, unspecified; N18.3 Chronic kidney disease, stage 3 (moderate); R53.1 Weakness; K80.50 Calculus of bile duct without cholangitis or cholecystitis without obstruction; I25.119 Atherosclerotic heart disease of native coronary artery with unspecified angina pectoris; Z98.61 Coronary angioplasty status; K21.9 Gastro-esophageal reflux disease without esophagitis; K80.80 Other cholelithiasis without obstruction; I12.9 Hypertensive chronic kidney disease with stage 1 through stage 4 chronic kidney disease, or unspecified chronic kidney disease; E78.5 Hyperlipidemia, unspecified; K44.9 Diaphragmatic hernia without obstruction or gangrene; E11.9 Type 2 diabetes mellitus without complications; D72.829 Elevated white blood cell count, unspecified
CPT/HCPCS: 36415; 36430; 36511; 71045-TC-FY; 74181-TC; 76000-TC-FY; 80048; 80053; 80076; 81003; 82150; 82248; 82565; 82570; 82962; 83690; 83735; 84100; 84156; 84300; 84484; 85025; 85027; 85610; 85730; 86140; 86704; 86706; 86707; 86708; 86709; 86803; 86850; 86900; 86901; 86922; 87040; 87186; 87205; 87340; 93005; 93010; 94760; 99285-25; P9038; P9058

== ENCOUNTER 2019-06-05 11:53 | Inpatient (IN) | payer OTHER ==
[2019-06-05 12:04] VITALS: BMI 24.7
--- NOTE | 2019-06-05 12:41 | PDOC ---
History of Present Illness - General Chief Complaint: Abnormal Lab Results (Outside) Stated Complaint: SENT BY DOC Time Seen by Provider: 06/05/19 12:05 - History of Present Illness Initial Comments: Ms. Davies is a 79 y/o female with extensive PMH including [place] s/p stents, DM, HTN, emphysema (on home O2, 3L), asthma, symptomatic anemia, presenting with shortness of breath on exertion. Reports that she was at her doctor's office today for a regular check up when she was found to have anemia and sent in for blood transfusion. She has been here several times in the past for blood transfusions. Denies dizziness, changes in vision, headache, chest pain, abdominal pain, urinary symptoms, nausea/vomiting, blood in stool. Past History - Past Medical History Allergies/Adverse Reactions: Allergies Allergy/AdvReac Type Severity Reaction Status Date / Time No Known Allergies Allergy Verified 06/05/19 12:04 Home Medications: Ambulatory Orders Aspirin [ASA -] 81 mg PO DAILY 04/12/17 Metoprolol Succinate [Toprol XL -] 25 mg PO DAILY 04/12/17 Nateglinide [Starlix (Nf) -] 120 mg PO TID 04/12/17 Olmesartan Medoxomil [Benicar -] 20 mg PO DAILY 04/12/17 Albuterol Sulfate Inhaler - [Ventolin HFA Inhaler -] 1 - 2 inh PO Q4H PRN Pioglitazone HCl 15 mg PO DAILY 04/28/18 Ranitidine HCl 150 mg PO BID 04/28/18 Ferrous Sulfate [Feosol] 325 mg PO DAILY 02/15/19 Fluticasone Propionate [Flovent Diskus] 110 mcg IH BID 03/24/19 Metformin HCl [Glucophage] 1,000 mg PO DAILY 03/24/19 Anemia: Yes Asthma: Yes Cancer: No Cardiac Disorders: Yes (ASCAD) CVA: Yes COPD: Yes (EMPHYSEMA) CHF: Yes Dementia: No Diabetes: Yes GI Disorders: Yes (HIATAL HERNIA,H/O COLON ADENOMA) Disorders: No HTN: Yes Hypercholesterolemia: Yes Liver Disease: No Seizures: No Thyroid Disease: No - Surgical History Abdominal Surgery: No Appendectomy: Yes Cardiac Surgery: Yes (mi- s/p stent) Cholecystectomy: Yes Lung Surgery: No Neurologic Surgery: No Orthopedic Surgery: No - Immunization History Immunization Up to Date: No - Psycho Social/Smoking Cessation Hx Smoking History: Unknown if ever smoked Have you smoked in the past 12 months: No Number of Cigarettes Smoked Daily: 4 If you are a former smoker, when did you quit?: 6 years ago Hx Alcohol Use: No Drug/Substance Use Hx: No Substance Use Type: None Hx Substance Use Treatment: No Review of Systems - Review of Systems Comments:: GENERAL/CONSTITUTIONAL: No fever or chills. No weakness._ HEAD, EYES, EARS, NOSE AND THROAT: No change in vision. No change in hearing. No sore throat._ CARDIOVASCULAR: No chest pain. Reports shortness of breath on exertion. RESPIRATORY: Denies cough, hemoptysis_ GASTROINTESTINAL: No nausea, vomiting, diarrhea or constipation._ GENITOURINARY: No dysuria, frequency, or change in urination._ MUSCULOSKELETAL: No joint or muscle swelling or pain. No neck or back pain._ SKIN: No rash_ NEUROLOGIC: No headache, vertigo, loss of consciousness, or change in strength/ sensation._ ENDOCRINE: No increased thirst. No abnormal weight change_ HEMATOLOGIC/LYMPHATIC: No history of blood clots._ ALLERGIC/IMMUNOLOGIC: No hives or skin allergy._ *Physical Exam - Vital Signs Last Vital Signs Temp Pulse Resp BP Pulse Ox 97.9 F 85 20 143/58 L 90 L 06/05/19 12:03 06/05/19 12:03 06/05/19 12:03 06/05/19 12:03 06/05/19 12:03 - Physical Exam Comments: GENERAL: Awake, alert, and oriented to person/place/time, in no acute distress. On 3L O2. HEAD: No signs of trauma, normocephalic, atraumatic _ EYES: PERRLA, EOMI, sclera anicteric, conjunctiva clear_ ENT: Hearing grossly normal, nares patent, oropharynx clear without exudates. No uvular deviation. Moist mucosa_ NECK: Normal ROM, supple, no lymphadenopathy, JVD, or masses_ LUNGS: No distress, speaks in full sentences, mild scattered wheezes. HEART: Regular rate and rhythm, normal S1 and S2, no murmurs appreciated, peripheral pulses normal and equal bilaterally._ ABDOMEN: Soft, nontender, normoactive bowel sounds. No guarding, no rebound. No masses_ RECTAL: Normal tone, empty rectal vault, no darlene blood appreciated. EXTREMITIES: Normal inspection, Normal range of motion, no edema. No clubbing or cyanosis_ NEUROLOGICAL: Cranial nerves II through XII grossly intact. Normal speech, no focal sensorimotor deficits _ SKIN: Warm, Dry, normal turgor, no rashes or lesions noted_ ED Treatment Course - LABORATORY CBC & Chemistry Diagram: 06/05/19 12:55 06/05/19 12:55 Medical Decision Making - Medical Decision Making 06/05/19 12:42 79F with hx of CHF, [place] s/p stent, DM, HTN, emphysema, asthma, sent in for symptomatic anemia. SOB on exertion. Prior blood transfusions. Concern for symptomatic anemia. Obtain CBC, CMP, BNP, EKG, trop, CXR, fecal occult blood, VBG, coags. 06/05/19 15:30 Labs reviewed. CBC shows low Hgb of 6.6. Transfusion ordered from blood bank. D/w Dr. Perez who accepts the patient for admission. 06/05/19 1636 EKG shows NSR, 60 bpm, no axis deviation, QTc 430. Discharge - Discharge Information Problems reviewed: Yes Clinical Impression/Diagnosis: Anemia Qualifiers: Anemia type: unspecified type Qualified Code(s): D64.9 - Anemia, unspecified Condition: Stable - Admission Yes - Follow up/Referral - Patient Discharge Instructions - Post Discharge Activity
[2019-06-05 13:24] LABS: BASO % 0.7 % (0-2.0); EOS % 1.2 % (0-4.5); HEMATOCRIT 22.2 % (32.4-45.2); LYMPH % 19.3 % (8-40); MCH 23.6 pg (25.7-33.7); MCHC 29.6 g/dl (32.0-36.0); MEAN PLT VOLUME 7.8 fl (7.5-11.1); MONO % 6.6 % (3.8-10.2); NEUT % 72.2 % (42.8-82.8); PLATELET COUNT 314 K/MM3 (134-434); RBC 2.78 M/mm3 (3.60-5.2); WHITE BLOOD COUNT 5.1 K/mm3 (4.0-10.0)
[2019-06-05 13:31] LABS: HEMOGLOBIN 6.6 GM/dL (10.7-15.3)
[2019-06-05 13:33] LABS: VENOUS PC02 57.7 mmHg (38-52)
[2019-06-05 13:38] LABS: VENOUS PO2 < 49 mmHg (28-48)
[2019-06-05 13:49] LABS: INR 1.03 (0.83-1.09); PROTHROMBIN TIME (PATIENT) 12.1 SEC (9.7-13.0)
[2019-06-05 13:51] LABS: ACTIVATED PTT 34.7 SECONDS (25.2-36.5)
[2019-06-05 14:03] LABS: ALBUMIN 3.2 g/dl (3.4-5.0); ALK PHOS 54 U/L (45-117); ANION GAP 5 MMOL/L (8-16); BILIRUBIN,TOTAL 0.3 mg/dL (0.2-1); BLOOD UREA NITROGEN 32.4 mg/dL (7-18); CALCIUM 8.5 mg/dL (8.5-10.1); CHLORIDE 106 mmol/L (98-107); CO2 28 mmol/L (21-32); GLUCOSE,RANDOM 114 mg/dL (74-106); POTASSIUM 4.6 mmol/L (3.5-5.1); SGOT/AST 12 U/L (15-37); SGPT/ALT 14 U/L (13-61); SODIUM 139 mmol/L (136-145); TOT PROT 6.2 g/dl (6.4-8.2)
--- NOTE | 2019-06-05 14:19 | PDOC ---
Documentation entered by Gavino Saunders SCRIBE, acting as scribe for Lorena Carpenter MD. Lorena Carpenter MD: This documentation has been prepared by the Nicky cee Xhesika, SCRIBE, under my direction and personally reviewed by me in its entirety. I confirm that the documentation accurately reflects all work, treatment, procedures, and medical decision making performed by me. Attending Attestation - Resident Resident Name: MarshallYazan - ED Attending Attestation I have performed the following: I have examined & evaluated the patient, The case was reviewed & discussed with the resident, I agree w/resident's findings & plan - HPI HPI: 06/05/19 13:38 The patient is a 79 year old female with a significant past medical history of DM, HTN, COPD (Home O2), CVA, CAD, [place] s/p stents, SBO, asthma, symptomatic anemia, and biliary sepsis s/p ERSP who presents to the ED with SOB x3 days. Patient notes her SOB is chronic, however, it is progressively getting worse while sitting down and on exertion. Patient notes she saw her PMD 1 week ago, had blood work done, and was called today being advised to go to the ED because her hemoglobin was low and needed a blood transfusion. Denies fever, chills, chest pain, palpitation, dizziness, weakness, N, V, D, abdominal pain, bladder and bowel problems, leg swelling, No sick contacts or travel. No new changes in medications. Allergies: None Past Medical History: see HPI Social history: Current everyday smoker. No ETOH or drug use. Surgical history: mi- s/p stent, cholecystectomy, appendectomymi- s/p stent, cholecystectomy, appendectomy Meds: as documented in EMR PCP: Dr. Duc Perez - Physicial Exam PE: 06/05/19 13:39 Agree with the resident's HPI and PE as documented in the electronic medical record. NAD, well appearing, on nasal cannula, EOMI, PERRL, nl conjunctiva, anicteric; neck supple. lungs diminished breath sounds bilaterally, RRR, abdomen soft nontender. No rebound, no guarding. Back nontender. HILL x4, no focal neuro deficits. No peripheral edema. normal color for ethnicity, WWP. 06/05/19 14:17 - Medical Decision Making 06/05/19 14:17 Vital Signs Temp Pulse Resp BP Pulse Ox 97.9 F 85 20 143/58 L 90 L 06/05/19 12:03 06/05/19 12:03 06/05/19 12:03 06/05/19 12:03 06/05/19 12:03 Vital signs reviewed, mild hypoxia is noted 90% on room air, subsequent Ian put on supplemental oxygen. Remainder of hemodynamics appropriate. Labs and lites are remarkable for acute on chronic anemia, hemoglobin 6.6 today. Hematocrit 22.2. Coags are normal. VBG with mild respiratory acidosis that appears compensated. No significant derangement of the CO2 at this time. BNP is elevated 2000s, nonspecific. Guaiac is negative, no evidence to suggest GI bleed as source of anemia as she has had this happen frequently in the past. Requiring transfusion. admit for symptomatic anemia, hypoxia, medical management. 06/05/19 14:18 06/05/19 15:20
[2019-06-05] MEDS ORDERED: ALBUTEROL SO4 8 GM HFA INHALER IH PRN (21:17)
[2019-06-05] MEDS ORDERED: PATIENT'S OWN MEDICATION (NON-FORMULARY) (Nateglinide 120 MG) PO SCH (22:00)
[2019-06-05] MEDS: MOMETASONE FUROATE 220 MCG/IH INHALER IH SCH (22:53)
[2019-06-05] MEDS: FAMOTIDINE 10 MG TABLET PO SCH (22:53)
[2019-06-05] MEDS: INSULIN SLIDING SCALE (NOVOLOG) 1 VIAL SQ SCH (22:54)
[2019-06-06] MEDS: INSULIN SLIDING SCALE (NOVOLOG) 1 VIAL SQ SCH ×4 (06:15→21:47)
[2019-06-06] MEDS: metFORMIN HCL 500 MG TABLET (FP) PO SCH (06:15)
[2019-06-06] MEDS: PIOGLITAZONE HCL 15 MG TABLET (FP) PO SCH (06:15)
[2019-06-06 07:06] LABS: HEMATOCRIT 29.9 % (32.4-45.2); HEMOGLOBIN 9.6 GM/dL (10.7-15.3); MCHC 32.2 g/dl (32.0-36.0); MEAN CELL VOLUME 80.9 fl (80-96); PLATELET COUNT 288 K/MM3 (134-434); RDW 17.3 % (11.6-15.6); WHITE BLOOD COUNT 5.5 K/mm3 (4.0-10.0)
[2019-06-06 07:16] LABS: ALBUMIN 2.9 g/dl (3.4-5.0); BILIRUBIN,TOTAL 0.5 mg/dL (0.2-1); BLOOD UREA NITROGEN 33.3 mg/dL (7-18); CALCIUM 8.8 mg/dL (8.5-10.1); POTASSIUM 4.5 mmol/L (3.5-5.1); TOT PROT 5.7 g/dl (6.4-8.2)
[2019-06-06] MEDS: ASPIRIN 81 MG CHEWABLE TABLETS PO SCH (09:37)
[2019-06-06] MEDS: FAMOTIDINE 10 MG TABLET PO SCH ×2 (09:37→21:45)
[2019-06-06] MEDS: VALSARTAN 160 MG TABLET (UD) PO SCH (09:37)
[2019-06-06] MEDS: metoPROLOL SUCCINATE 25 MG TAB.SR.24H (FP) PO SCH (09:37)
--- NOTE | 2019-06-06 09:55 | HP ---
Admitting History and Physical - Primary Care Physician PCP: Leda Perez S - Admission Chief Complaint: anemia, SOB History of Present Illness: Ms. Davies is a 79 y/o female with extensive PMH including NV s/p stents, DM, HTN, emphysema (on home O2, 3L), asthma, symptomatic anemia, s/p recent admission to with biliary stone s/p biliary stone extraction at [facility], now presenting with shortness of breath on exertion. Found to have anemia and admitted for blood transfusion. She has been here several times in the past for blood transfusions. Denies dizziness, changes in vision, headache, chest pain, abdominal pain, urinary symptoms, nausea/vomiting, blood in stool. 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: CVA (residual left lower lip numbness) Cardiovascular: Yes: CAD, HTN, NV, Hyperlipdemia Pulmonary: Yes: COPD Gastrointestinal: Yes: Constipation, Hiatal Hernia Renal/: Yes: Renal Inusuff Psych: Yes: Depression Endocrine: Yes: Diabetes Mellitus (with diabetic retinopathy ( had interventions ) and nephropathy ) - Past Surgical History Past Surgical History: Yes: Appendectomy, Tubal Ligation, Colonoscopy, Upper Endoscopy, Breast Biopsy, Cholecystectomy - Smoking History Smoking history: Former smoker Have you smoked in the past 12 months: No Aproximately how many cigarettes per day: 4 If you are a former smoker, when did you quit?: 6 years ago - Alcohol/Substance Use Hx Alcohol Use: No History of Substance Use: reports: None - Social History Usual Living Arrangement: Yes: With Spouse Do you think of yourself as: Straight/Heterosexual ADL: Independent 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 History of Recent Travel: No Home Medications - Allergies Allergies/Adverse Reactions: Allergies Allergy/AdvReac Type Severity Reaction Status Date / Time No Known Allergies Allergy Verified 06/05/19 12:04 - Home Medications Home Medications: Ambulatory Orders Aspirin [ASA -] 81 mg PO DAILY 04/12/17 Metoprolol Succinate [Toprol XL -] 25 mg PO DAILY 04/12/17 Nateglinide [Starlix (Nf) -] 120 mg PO TID 04/12/17 Olmesartan Medoxomil [Benicar -] 20 mg PO DAILY 04/12/17 Albuterol Sulfate Inhaler - [Ventolin HFA Inhaler -] 1 - 2 inh PO Q4H PRN Pioglitazone HCl 15 mg PO DAILY 04/28/18 Ranitidine HCl 150 mg PO BID 04/28/18 Ferrous Sulfate [Feosol] 325 mg PO DAILY 02/15/19 Fluticasone Propionate [Flovent Diskus] 110 mcg IH BID 03/24/19 Metformin HCl [Glucophage] 1,000 mg PO DAILY 03/24/19 Family Medical History Family History: Unremarkable Review of Systems - Review of Systems Constitutional: reports: Loss of Appetite, Unintentional Wgt. Loss, Weakness ( general). denies: Chills, Fever, Lethargy Eyes: denies: Blurred Vision, Double Vision HENT: denies: Difficult Swallowing Neck: denies: Stiffness, Tenderness Cardiovascular: reports: Shortness of Breath. denies: Chest Pain Respiratory: reports: SOB, SOB on Exertion. denies: Cough, Wheezing Gastrointestinal: denies: Abdominal Pain, Bloating, Constipation, Diarrhea, Rectal Bleeding, Vomiting, Vomiting Blood Genitourinary: denies: Dysuria, Flank Pain, Hematuria, Vaginal Bleeding Musculoskeletal: denies: Back Pain, Extremity Pain Integumentary: denies: Eczema, Erythema, Rash, Wound Neurological: denies: Change in LOC, Change in Speech, Confusion, Dizziness, Headache, Seizure, Syncope, Weakness Endocrine: reports: Unexplained Weight Loss Hematology/Lymphatic: denies: Easily Bruised, Excessive Bleeding Psychiatric: denies: Altered Sleep Pattern, Anxiety, Depression, Hallucinations , Suicidal Physical Examination Vital Signs: Vital Signs Temperature 98.2 F 06/06/19 07:50 Pulse Rate 85 06/06/19 07:50 Respiratory Rate 17 06/06/19 07:52 Blood Pressure 122/54 L 06/06/19 07:50 O2 Sat by Pulse Oximetry (%) 99 06/06/19 07:52 Constitutional: Yes: No Distress, Calm Eyes: Yes: Conjunctiva Clear HENT: Yes: Atraumatic Neck: Yes: Supple Cardiovascular: Yes: Regular Rate and Rhythm Respiratory: Yes: CTA Bilaterally Gastrointestinal: Yes: Soft. No: Tenderness Renal/: No: Hematuria Musculoskeletal: No: Joint Stiffness, Joint Swelling Extremities: No: Cold, Cool Edema: No Integumentary: No: Rash, Venous Stasis Changes Neurological: Yes: WNL, Alert, Oriented ...Motor Strength: WNL Psychiatric: Yes: WNL, Alert, Oriented. No: Agitated, Suicidal Ideation Labs: CBC, BMP 06/06/19 06:15 06/06/19 06:15 Imaging - Results Chest X-ray: Report Reviewed Other: Report Reviewed Assessment/Plan Ms. Davies is a 79 y/o female with extensive PMH including NV s/p stents, DM, HTN, emphysema (on home O2, 3L), asthma, symptomatic anemia, s/p recent admission to for biliary stones, stone extracted at [facility], admitted with shortness of breath on exertion and severe anemia. PRBC transfusion, GI and heme onc eval needs further w/u like colonoscopy EGD per GI; heme - r/o malignancy d/w pt pt ambulates and is OOB now; falls PFX f/u labs d/w pt and staff
[2019-06-06] MEDS ORDERED: FERROUS SO4 325 MG TABLET (FP) PO SCH (10:00)
--- NOTE | 2019-06-06 10:40 | EKG ---
Test Reason : Blood Pressure : / mmHG Vent. Rate : 060 BPM Atrial Rate : 060 BPM P-R Int : 176 ms QRS Dur : 072 ms QT Int : 430 ms P-R-T Axes : 031 005 023 degrees QTc Int : 430 ms NORMAL SINUS RHYTHM NONSPECIFIC ST AND T WAVE ABNORMALITY ABNORMAL ECG WHEN COMPARED WITH ECG OF 24-MAR-2019 17:19, VENT. RATE HAS DECREASED BY 35 BPM INVERTED T WAVES HAVE REPLACED NONSPECIFIC T WAVE ABNORMALITY IN ANTERIOR LEADS Confirmed by SHREE PADILLA MD ([id number]) on 06/06/2019 10:39:43 AM Referred By: Confirmed By:SHREE PADILLA MD
[2019-06-06] MEDS ORDERED: INSULIN (NOVOLOG) ASPART 100 UNITS/ML 10ML VIAL ONE ×2 (11:19→21:05)
--- NOTE | 2019-06-06 11:36 | CON.CARD ---
Consult Consult Specialty:: cardio (for ) - History of Present Illness Chief Complaint: sob History of Present Illness: 79 F here with sob. states she was losing her breath more easily at home for few days. states this is same way she's felt in the past when anemic. uses O2 at home. denies any chest pain. feet were swelling but stable at longstanding baseline. denies cough, sputum, wheeze. no fever PMH: anemia s/p PRBCs in past--? 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: CVA (residual left lower lip numbness) Cardio/Vascular: Yes: CAD, HTN, [place], Hyperlipdemia Pulmonary: Yes: COPD Gastrointestinal: Yes: Constipation, Hiatal Hernia Renal/: Yes: Renal Inusuff Psych: Yes: Depression Endocrine: Yes: Diabetes Mellitus (with diabetic retinopathy ( had interventions ) and nephropathy ) - Past Surgical History Past Surgical History: Yes: Appendectomy, Tubal Ligation, Colonoscopy, Upper Endoscopy, Breast Biopsy, Cholecystectomy - Alcohol/Substance Use Hx Alcohol Use: No History of Substance Use: reports: None - Smoking History Smoking history: Unknown if ever smoked Have you smoked in the past 12 months: No Aproximately how many cigarettes per day: 4 If you are a former smoker, when did you quit?: 6 years ago - Social History Usual Living Arrangement: With Spouse ADL: Independent 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 History of Recent Travel: No Home Medications - Allergies Allergies/Adverse Reactions: Allergies Allergy/AdvReac Type Severity Reaction Status Date / Time No Known Allergies Allergy Verified 06/05/19 12:04 - Home Medications Home Medications: Ambulatory Orders Aspirin [ASA -] 81 mg PO DAILY 04/12/17 Metoprolol Succinate [Toprol XL -] 25 mg PO DAILY 04/12/17 Nateglinide [Starlix (Nf) -] 120 mg PO TID 04/12/17 Olmesartan Medoxomil [Benicar -] 20 mg PO DAILY 04/12/17 Albuterol Sulfate Inhaler - [Ventolin HFA Inhaler -] 1 - 2 inh PO Q4H PRN Pioglitazone HCl 15 mg PO DAILY 04/28/18 Ranitidine HCl 150 mg PO BID 04/28/18 Ferrous Sulfate [Feosol] 325 mg PO DAILY 02/15/19 Fluticasone Propionate [Flovent Diskus] 110 mcg IH BID 03/24/19 Metformin HCl [Glucophage] 1,000 mg PO DAILY 03/24/19 Family Medical History Family History: Denies (no known cmp) Review of Systems - Review of Systems Constitutional: denies: Chills, Fever Eyes: denies: Eye Pain HENT: denies: Nasal Congestion Neck: denies: Stiffness Cardiovascular: denies: Palpitations Respiratory: denies: Orthopnea, PND Gastrointestinal: denies: Diarrhea, Rectal Bleeding Genitourinary: denies: Burning, Hematuria Musculoskeletal: denies: Muscle Pain Integumentary: denies: Rash Neurological: denies: Numbness, Seizure, Syncope Endocrine: denies: Excessive Sweating Hematology/Lymphatic: denies: Excessive Bleeding Vital Signs: Vital Signs Temperature 98.2 F 06/06/19 07:50 Pulse Rate 85 06/06/19 07:50 Respiratory Rate 17 06/06/19 07:52 Blood Pressure 122/54 L 06/06/19 07:50 O2 Sat by Pulse Oximetry (%) 99 06/06/19 07:52 Constitutional: Yes: Well Nourished, No Distress Eyes: No: Sclera Icterus HENT: No: Nasal Congestion Neck: No: Decreased ROM Respiratory: Yes: CTA Bilaterally. No: Accessory Muscle Use, Rales, Wheezes Gastrointestinal: Yes: Normal Bowel Sounds. No: Distention, Hepatomegaly, Palpable Mass, Tenderness Cardiovascular: Yes: Regular Rate and Rhythm JVD: No Carotid Bruit: No PMI: Non-Displaced Heart Sounds: Yes: S1, S2. No: Gallop Murmur: No: Systolic Murmur, Diastolic Murmur Musculoskeletal: Yes: Other (No kyphosis) Extremities: No: Cool, Cyanosis Edema: No Peripheral Pulses: 2+ Left Carotid, 2+ Right Carotid, 2+ Left Doralis Pedis, 2+ Right Dorsalis Pedis Integumentary: No: Jaundice Neurological: Yes: Alert, Oriented (x3) Psychiatric: No: Agitated - Other Data Labs, Other Data: CBC, BMP 06/06/19 06:15 06/06/19 06:15 INR, PTT INR 1.03 (0.83-1.09) 06/05/19 12:55 Troponin, BNP 06/05/19 06/05/19 12:55 12:55 Troponin I < 0.02 B-Natriuretic Peptide 2595.6 H Troponin, BNP 06/05/19 06/05/19 12:55 12:55 Troponin I < 0.02 B-Natriuretic Peptide 2595.6 H Laboratory Tests 04/02/19 06/05/19 06/05/19 06:39 12:55 12:55 WBC Hgb 9.3 L 6.6 L* Plt Count Sodium Potassium BUN Creatinine AST ALT Troponin I < 0.02 B-Natriuretic Peptide Albumin 06/05/19 06/06/19 06/06/19 12:55 06:15 06:15 WBC 5.5 Hgb 9.6 L Plt Count 288 Sodium 142 Potassium 4.5 BUN 33.3 H Creatinine 1.0 AST 20 ALT 13 Troponin I B-Natriuretic Peptide 2595.6 H Albumin 2.9 L Assessment/Plan ECG: CXR: chronic changes/scarring. otherwise clear lungs/pleura ECG: NSR, nonsp TWAs unchanged vs 03/29. MPI 02/26 (wilbert): nl STs. no ischemia. nl EF. IMPRESSION: SOB: -? sec to anemia -BNP 2500, no priors. no reported h/o CHF per dr vera prior notes review. no pulm congestion on xray -appears euvolemic. -sob similar to prior anemia sx's per pt--resolved after PRBCs. -check echo -ecg non-ischemic, trop neg -known copd, on home O2--per pmd anemia: -h/o same, followed by dr orozco -hgb 6's, from 9s in 03/29--transfused to 9s. -observe counts, transfuse prn per gi, heme rec.s -further w/u per GI, heme -continue aspirin unless signs of active, hi-risk bleeding per GI pulm HTN: -CTA chest 02/26 with dilated main PA c/w pulm HTN -prior echo values not available -likely WHO 3 etiology, ? WHO 2 component (no HFpEF history documented, however has mult risk factors) -outpt f/u with dr vera -suppl O2 as doing -echo pending CAD, h/o PCI: -on aspirin at home--to continue for now -no statin listed on home meds--defer to dr vera who knows pt from office (he is back 06/08) -cont home metoprolol -no signs ACS here Hypertension: -controlled -cont same meds History of tobacco abuse -counselled benefits of cessatoin DM - manage per primary
--- NOTE | 2019-06-06 11:38 | CONSULT ---
Consult Consult Specialty:: Hematology Referred by:: Medicine Reason for Consultation:: Anemia - History of Present Illness Chief Complaint: Dypnea due to acute anemia History of Present Illness: Patient with long-standing mild anemia (Hb circa 9-10), found to have exacerbation in anemia (Hb 6.6) after reporting worsening dyspnea. Hb at baseline 2 months ago. Currently guiac negative. Patient feeling better after transfusion. Denies any episodes of BRBPR, hematochezia, but seems to think that on one occasion about a month ago her stools were black. 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: CVA (residual left lower lip numbness) Cardio/Vascular: Yes: CAD, HTN, [place], Hyperlipdemia Pulmonary: Yes: COPD Gastrointestinal: Yes: Constipation, Hiatal Hernia Renal/: Yes: Renal Inusuff Psych: Yes: Depression Endocrine: Yes: Diabetes Mellitus (with diabetic retinopathy ( had interventions ) and nephropathy ) - Past Surgical History Past Surgical History: Yes: Appendectomy, Tubal Ligation, Colonoscopy, Upper Endoscopy, Breast Biopsy, Cholecystectomy - Alcohol/Substance Use Hx Alcohol Use: No History of Substance Use: reports: None - Smoking History Smoking history: Unknown if ever smoked Have you smoked in the past 12 months: No Aproximately how many cigarettes per day: 4 If you are a former smoker, when did you quit?: 6 years ago - Social History Usual Living Arrangement: With Spouse ADL: Independent 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 History of Recent Travel: No Home Medications - Allergies Allergies/Adverse Reactions: Allergies Allergy/AdvReac Type Severity Reaction Status Date / Time No Known Allergies Allergy Verified 06/05/19 12:04 - Home Medications Home Medications: Ambulatory Orders Aspirin [ASA -] 81 mg PO DAILY 04/12/17 Metoprolol Succinate [Toprol XL -] 25 mg PO DAILY 04/12/17 Nateglinide [Starlix (Nf) -] 120 mg PO TID 04/12/17 Olmesartan Medoxomil [Benicar -] 20 mg PO DAILY 04/12/17 Albuterol Sulfate Inhaler - [Ventolin HFA Inhaler -] 1 - 2 inh PO Q4H PRN Pioglitazone HCl 15 mg PO DAILY 04/28/18 Ranitidine HCl 150 mg PO BID 04/28/18 Ferrous Sulfate [Feosol] 325 mg PO DAILY 02/15/19 Fluticasone Propionate [Flovent Diskus] 110 mcg IH BID 03/24/19 Metformin HCl [Glucophage] 1,000 mg PO DAILY 03/24/19 Review of Systems - Review of Systems Constitutional: denies: Diaphoresis, Loss of Appetite, Unintentional Wgt. Loss HENT: denies: Difficult Swallowing, Epistaxis, Gingival Bleeding Neck: denies: Swollen Glands Cardiovascular: denies: Chest Pain Respiratory: reports: Other (Prior dyspnea improved - now at baseline) Gastrointestinal: denies: Abdominal Pain, Diarrhea, Melena, Rectal Bleeding, Vomiting Blood Genitourinary: denies: Vaginal Bleeding Musculoskeletal: denies: Joint Swelling Neurological: denies: Change in LOC, Dizziness Hematology/Lymphatic: denies: Easily Bruised Physical Exam Vital Signs: Vital Signs Temperature 98.2 F 06/06/19 07:50 Pulse Rate 85 06/06/19 07:50 Respiratory Rate 17 06/06/19 07:52 Blood Pressure 122/54 L 06/06/19 07:50 O2 Sat by Pulse Oximetry (%) 99 06/06/19 07:52 Constitutional: Yes: Well Nourished, No Distress Eyes: Yes: Conjunctiva Clear HENT: Yes: Other Neck: Yes: Supple Cardiovascular: Yes: Murmur, S1, S2 Respiratory: Yes: Regular, CTA Bilaterally Gastrointestinal: Yes: Normal Bowel Sounds, Abdomen, Obese. No: Hepatomegaly, Palpable Mass, Splenomegaly Musculoskeletal: No: Joint Swelling Edema: No Integumentary: No: Rash Neurological: Yes: Alert, Oriented, Cran Nerves II-XII Intact. No: Pre- Existing Deficit ...Motor Strength: WNL Psychiatric: Yes: Alert, Oriented Labs: CBC, BMP 06/06/19 06:15 06/06/19 06:15 Assessment/Plan Patient with chronic mild anemia (borderline microcytic) presents with acute drop circa 4g/dL over the past 2 months. Etiology obscure. Currently guiac negative, but have high index of suspicion for prior GI hemorrhage. No recent iron studies - obtain now, but note that a normal or elevated serum ferritin is expected at this time, even if iron deficient, due to recent transfusion. Similarly, reticulocyte count will be difficult to interpret. (Ideally these 2 parameters should always be ordered PRIOR to transfusion in cases of unexplained anemia.) A hemolytic episode may also account for her acute anemia, but less likely, and no evidence of hemolysis presently. For completeness check LDH and haptoglobin. GI evaluation recommended. Will follow.
--- NOTE | 2019-06-06 13:58 | CON.GI ---
Consult Consult Specialty:: Gi for Dr Brooke - History of Present Illness History of Present Illness: 79 y/o female with PMH of large CBD stone, removed at [facility] was aslked to be admitted because of severe anemia. She was supposed to have a colonoscopy as an outpatient with Dr Brooke but cancelled. She denies melena,, rectal bleeding, abdominal pain and dysphagia. She received 2 units of blood overnight. Now she is asymptomatic. 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: CVA (residual left lower lip numbness) Cardio/Vascular: Yes: CAD, HTN, [place], Hyperlipdemia Pulmonary: Yes: COPD Gastrointestinal: Yes: Constipation, Hiatal Hernia Renal/: Yes: Renal Inusuff Psych: Yes: Depression Endocrine: Yes: Diabetes Mellitus (with diabetic retinopathy ( had interventions ) and nephropathy ) - Past Surgical History Past Surgical History: Yes: Appendectomy, Tubal Ligation, Colonoscopy, Upper Endoscopy, Breast Biopsy, Cholecystectomy - Alcohol/Substance Use Hx Alcohol Use: No History of Substance Use: reports: None - Smoking History Smoking history: Unknown if ever smoked Have you smoked in the past 12 months: No Aproximately how many cigarettes per day: 4 If you are a former smoker, when did you quit?: 6 years ago - Social History Usual Living Arrangement: With Spouse ADL: Independent 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 History of Recent Travel: No Home Medications - Allergies Allergies/Adverse Reactions: Allergies Allergy/AdvReac Type Severity Reaction Status Date / Time No Known Allergies Allergy Verified 06/05/19 12:04 - Home Medications Home Medications: Ambulatory Orders Aspirin [ASA -] 81 mg PO DAILY 04/12/17 Metoprolol Succinate [Toprol XL -] 25 mg PO DAILY 04/12/17 Nateglinide [Starlix (Nf) -] 120 mg PO TID 04/12/17 Olmesartan Medoxomil [Benicar -] 20 mg PO DAILY 04/12/17 Albuterol Sulfate Inhaler - [Ventolin HFA Inhaler -] 1 - 2 inh PO Q4H PRN Pioglitazone HCl 15 mg PO DAILY 04/28/18 Ranitidine HCl 150 mg PO BID 04/28/18 Ferrous Sulfate [Feosol] 325 mg PO DAILY 02/15/19 Fluticasone Propionate [Flovent Diskus] 110 mcg IH BID 03/24/19 Metformin HCl [Glucophage] 1,000 mg PO DAILY 03/24/19 Physical Exam-GI Vital Signs: Vital Signs Temperature 98.2 F 06/06/19 07:50 Pulse Rate 85 06/06/19 07:50 Respiratory Rate 17 06/06/19 07:52 Blood Pressure 122/54 L 06/06/19 07:50 O2 Sat by Pulse Oximetry (%) 99 06/06/19 07:52 Constitutional: Yes: Well Nourished Eyes: Yes: Conjunctiva Clear HENT: Yes: Atraumatic Neck: Yes: Supple Cardiovascular: Yes: Regular Rate and Rhythm Respiratory: Yes: CTA Bilaterally ...Palpate: Yes: Soft. No: Firm/Rigid, Guarding, Hepatomegaly, Mass, Pulsatile Mass, Splenomegaly, Tenderness Labs: CBC, BMP 06/06/19 06:15 06/06/19 06:15 INR, PTT INR 1.03 (0.83-1.09) 06/05/19 12:55 Problem List - Problems (1) Anemia Assessment/Plan: R> for colonoscopy bowel preparation ordered Dr Alonso will perform the procedure.. Code(s): D64.9 - ANEMIA, UNSPECIFIED Qualifiers: Anemia type: unspecified type Qualified Code(s): D64.9 - Anemia, unspecified
[2019-06-06] MEDS ORDERED: PEG 3350/NA SULF BICARB CL/KCL 4000 ML SOLN.RECON PO ONE (14:01)
[2019-06-06] MEDS: MOMETASONE FUROATE 220 MCG/IH INHALER IH SCH (21:48)
[2019-06-07] MEDS: PIOGLITAZONE HCL 15 MG TABLET (FP) PO SCH (06:18)
[2019-06-07] MEDS: metFORMIN HCL 500 MG TABLET (FP) PO SCH (06:18)
[2019-06-07] MEDS: INSULIN SLIDING SCALE (NOVOLOG) 1 VIAL SQ SCH ×4 (06:18→21:29)
[2019-06-07 07:08] LABS: EOS % 1.7 % (0-4.5); HEMATOCRIT 28.9 % (32.4-45.2); HEMOGLOBIN 9.1 GM/dL (10.7-15.3); LYMPH % 28.7 % (8-40); MCH 25.5 pg (25.7-33.7); MCHC 31.7 g/dl (32.0-36.0); MEAN CELL VOLUME 80.6 fl (80-96); MEAN PLT VOLUME 8.2 fl (7.5-11.1); MONO % 9.7 % (3.8-10.2); NEUT % 58.9 % (42.8-82.8); PLATELET COUNT 261 K/MM3 (134-434); RBC 3.58 M/mm3 (3.60-5.2); RDW 18.2 % (11.6-15.6); RETICULOCYTES 1.66 % (0.5-1.5); WHITE BLOOD COUNT 3.3 K/mm3 (4.0-10.0)
[2019-06-07 07:48] LABS: ALBUMIN 2.8 g/dl (3.4-5.0); BILIRUBIN,TOTAL 0.4 mg/dL (0.2-1); CALCIUM 8.3 mg/dL (8.5-10.1); CREATININE 0.9 mg/dL (0.55-1.3); POTASSIUM 4.5 mmol/L (3.5-5.1); TOT PROT 5.5 g/dl (6.4-8.2)
[2019-06-07] MEDS: VALSARTAN 160 MG TABLET (UD) PO SCH (09:18)
[2019-06-07] MEDS: FAMOTIDINE 10 MG TABLET PO SCH ×2 (09:18→21:29)
[2019-06-07] MEDS: ASPIRIN 81 MG CHEWABLE TABLETS PO SCH (09:18)
[2019-06-07] MEDS: metoPROLOL SUCCINATE 25 MG TAB.SR.24H (FP) PO SCH (09:18)
--- NOTE | 2019-06-07 10:52 | PN ---
Progress Note, Physician Chief Complaint: OOB to chair no c/o - Current Medication List Current Medications: Active Medications Albuterol Sulfate (Ventolin Hfa Inhaler -) 2 puff IH Q6H PRN PRN Reason: SHORT OF BREATH/WHEEZING Aspirin (Asa -) 81 mg PO DAILY [facility] Last Admin: 06/07/19 09:18 Dose: 81 mg Famotidine (Acid Business Account Executive) 10 mg PO BID [facility] Last Admin: 06/07/19 09:18 Dose: 10 mg Insulin Aspart (Novolog Vial Sliding Scale -) 1 vial SQ ACHS [facility]; Protocol Last Admin: 06/07/19 06:18 Dose: Not Given Metformin HCl (Glucophage -) 1,000 mg PO AM [facility] Last Admin: 06/07/19 06:18 Dose: Not Given Metoprolol Succinate (Toprol Xl -) 25 mg PO DAILY [facility] Last Admin: 06/07/19 09:18 Dose: 25 mg Mometasone Furoate (Asmanex 220mcg -) 1 puff IH HS [facility] Last Admin: 06/06/19 21:48 Dose: 1 inhaler Non-Formulary Medication (Nateglinide) 120 mg PO TID [facility] Pioglitazone HCl (Actos -) 15 mg PO AM [facility] Last Admin: 06/07/19 06:18 Dose: Not Given Valsartan (Diovan -) 160 mg PO DAILY [facility] Last Admin: 06/07/19 09:18 Dose: 160 mg - Objective Vital Signs: Vital Signs Temperature 97.8 F 06/07/19 08:48 Pulse Rate 66 06/07/19 08:48 Respiratory Rate 20 06/07/19 08:50 Blood Pressure 133/54 L 06/07/19 08:48 O2 Sat by Pulse Oximetry (%) 96 06/07/19 08:50 Constitutional: Yes: No Distress Eyes: Yes: Conjunctiva Clear HENT: Yes: Atraumatic Neck: Yes: Supple Cardiovascular: Yes: Regular Rate and Rhythm Respiratory: Yes: CTA Bilaterally Gastrointestinal: Yes: Soft. No: Tenderness Genitourinary: No: Hematuria Musculoskeletal: No: Joint Stiffness, Joint Swelling Extremities: No: Cold, Cool Edema: No Integumentary: No: Rash, Venous Stasis Changes Neurological: Yes: WNL, Alert, Oriented ...Motor Strength: WNL Psychiatric: Yes: WNL, Alert, Oriented. No: Agitated, Suicidal Ideation Labs: CBC, BMP 06/07/19 06:22 06/07/19 06:22 INR, PTT INR 1.03 (0.83-1.09) 06/05/19 12:55 - ....Imaging Other: Report Reviewed Assessment/Plan Ms. Davies is a 79 y/o female with extensive PMH including [place] s/p stents, DM, HTN, emphysema (on home O2, 3L), asthma, symptomatic anemia, s/p recent admission to for biliary stones, stone extracted at [facility], admitted with shortness of breath on exertion and severe anemia. PRBC transfusion, GI and heme onc eval needs further w/u like colonoscopy EGD per GI; heme - r/o malignancy d/w pt pt ambulates and is OOB now; falls PFX f/u labs d/w pt and staff
--- NOTE | 2019-06-07 11:51 | PN ---
Progress Note, Physician Chief Complaint: anemia, sob History of Present Illness: no more sob no cp no palpit, syncope - Current Medication List Current Medications: Active Medications Albuterol Sulfate (Ventolin Hfa Inhaler -) 2 puff IH Q6H PRN PRN Reason: SHORT OF BREATH/WHEEZING Aspirin (Asa -) 81 mg PO DAILY [facility] Last Admin: 06/07/19 09:18 Dose: 81 mg Famotidine (Acid Road Passenger Firer) 10 mg PO BID [facility] Last Admin: 06/07/19 09:18 Dose: 10 mg Insulin Aspart (Novolog Vial Sliding Scale -) 1 vial SQ ACHS [facility]; Protocol Last Admin: 06/07/19 06:18 Dose: Not Given Metformin HCl (Glucophage -) 1,000 mg PO AM [facility] Last Admin: 06/07/19 06:18 Dose: Not Given Metoprolol Succinate (Toprol Xl -) 25 mg PO DAILY [facility] Last Admin: 06/07/19 09:18 Dose: 25 mg Mometasone Furoate (Asmanex 220mcg -) 1 puff IH HS [facility] Last Admin: 06/06/19 21:48 Dose: 1 inhaler Non-Formulary Medication (Nateglinide) 120 mg PO TID [facility] Pioglitazone HCl (Actos -) 15 mg PO AM [facility] Last Admin: 06/07/19 06:18 Dose: Not Given Valsartan (Diovan -) 160 mg PO DAILY [facility] Last Admin: 06/07/19 09:18 Dose: 160 mg - Objective Vital Signs: Vital Signs Temperature 97.8 F 06/07/19 08:48 Pulse Rate 66 06/07/19 08:48 Respiratory Rate 20 06/07/19 08:50 Blood Pressure 133/54 L 06/07/19 08:48 O2 Sat by Pulse Oximetry (%) 96 06/07/19 08:50 Constitutional: Yes: Well Nourished, No Distress, Calm Cardiovascular: Yes: Regular Rate and Rhythm, S1, S2. No: Gallop, Murmur Respiratory: Yes: Regular, CTA Bilaterally. No: Accessory Muscle Use, Rales Extremities: No: Cold Edema: No Neurological: Yes: Alert, Oriented Psychiatric: No: Agitated Labs: CBC, BMP 06/07/19 06:22 06/07/19 06:22 INR, PTT INR 1.03 (0.83-1.09) 06/05/19 12:55 Assessment/Plan ECG: CXR: chronic changes/scarring. otherwise clear lungs/pleura ECG: NSR, nonsp TWAs unchanged vs 03/29. MPI 02/26 (wilbert): nl STs. no ischemia. nl EF. tele: NSR, extensive artifact. no VT IMPRESSION: SOB: -sec to anemia, with similar sx's on prior episodes of anemia--resolved after PRBCs here -BNP 2500, no priors. no reported h/o CHF per dr vera prior notes review. no pulm congestion on xray -appears euvolemic. -ecg non-ischemic, trop neg -known copd, on home O2--per pmd anemia, preop CV Eval: -h/o same, followed by dr orozco -hgb 6's, from 9s in 03/29--transfused to 9s. -counts stable today -observe counts, transfuse prn per gi, heme rec.s -plan for FOC per GI -continue aspirin unless signs of active, hi-risk bleeding per GI -RCRI = 2, unknown functional capacity. no s/sx of active CAD or CHF. acceptable risk for GI scopes, may proceed. 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 WHO 2 component (no HFpEF history documented, however has mult risk factors) -outpt f/u with dr vera -suppl O2 as doing -echo pending CAD, h/o PCI: -on aspirin at home--to continue for now -no statin listed on home meds--defer to dr vera who knows pt from office (he is back 06/08) -cont home metoprolol -no signs ACS here Hypertension: -controlled -cont same meds History of tobacco abuse -counselled benefits of cessatoin DM - manage per primary D/C TELE
--- NOTE | 2019-06-07 12:32 | ECHO ---
Name: EMANUEL PENALOZA Exam:Adult Echocardiogram Study Date: 06/07/2019 10:28 AM Age: 79 yrs Reason For Study: SOB Height: 62 in Weight: 137 lb BSA: 1.6 m2 MMode/2D Measurements & Calculations IVSd: 1.1 cm Ao root diam: 3.5 cm LVIDd: 4.1 cm LA dimension: 3.8 cm LVIDs: 2.9 cm LVPWd: 1.0 cm EDV(Teich): 75.5 ml LVOT diam: 2.0 cm ESV(Teich): 33.4 ml LAV (MOD-bp): 44.1 ml Doppler Measurements & Calculations MV V2 max: 173.7 cm/sec MV E max germain: 102.0 cm/sec MV max P.1 mmHg MV A max germain: 165.9 cm/sec MV V2 mean: 91.8 cm/sec MV E/A: 0.61 MV mean P.9 mmHg MV dec time: 0.28 sec MV V2 VTI: 42.3 cm Ao V2 max: 154.7 cm/sec AI max germain: 358.8 cm/sec Ao max P.6 mmHg AI max P.6 mmHg AI P1/2t: 572.0 msec AI dec slope: 183.7 cm/sec2 TR(V,D): 1.7 cm2 LV V1 max P.5 mmHg MR max germain: 275.7 cm/sec LV V1 max: 79.5 cm/sec MR max P.4 mmHg TR max germain: 229.4 cm/sec PA V2 max: 101.8 cm/sec TR max P.3 mmHg PA max P.1 mmHg Med Peak E' Germain: 3.9 cm/sec PI Vmax: 238.9 cm/sec Med E/e': 26.0 Lat Peak E' Germain: 5.0 cm/sec Lat E/e': 20.4 Procedure A complete two-dimensional transthoracic echocardiogram was performed (2D, M-mode, Doppler and color flow Doppler). Left Ventricle The left ventricle is normal in size. Left ventricular systolic function is normal. Ejection Fraction = 55- 60%. LV diastology suggests impaired relaxation with elevated filling pressure. No regional wall josh on abnormalities noted. Right Ventricle The right ventricle is normal size. The right ventricular systolic function is normal. Atria The left atrial size is normal. LA volume index is 27 ml/m2. Right atrial size is normal. Mitral Valve There is mild mitral annular calcification. There is mild mitral regurgitation. Tricuspid Valve The tricuspid valve is normal in structure and function. There is mild tricuspid regurgitation. Pulmo nary artery systolic pressure is at least 28 mmHg as RA pressure is assumed 3 mmHg (normal IVC, >50% colla pse). Aortic Valve There is mild aortic sclerosis.;. Mild aortic regurgitation. Pulmonic Valve The pulmonic valve is not well visualized. Mild pulmonic valvular regurgitation. Great Vessels The aortic root is normal size. Pericardium/Pleura There is no pericardial effusion. Interpretation Summary The left ventricle is normal in size. Left ventricular systolic function is normal. No regional wall motion abnormalities noted. Ejection Fraction = 55-60%. LV diastology suggests impaired relaxation with elevated filling pressure The right ventricular systolic function is normal. The left atrial size is normal. Right atrial size is normal. There is mild mitral annular calcification. There is mild mitral regurgitation. There is mild tricuspid regurgitation. Pulmonary artery systolic pressure is at least 28 mmHg as RA pressure is assumed 3 mmHg (normal IVC, >50% collapse) There is mild aortic sclerosis. Mild aortic regurgitation. Mild pulmonic valvular regurgitation. There is no pericardial effusion. Previous study is not available for comparison Luis Jessica MD 06/07/2019 12:31 PM
--- NOTE | 2019-06-07 13:34 | PN ---
Progress Note (short form) - Note Progress Note: Hematology and oncology follow up Subjective: Patient seen and examined at bedside. No new complaints. No oevents overnight. Patient denies bleeding/bruising. Objective: Vital Signs Temperature 97.8 F 06/07/19 08:48 Pulse Rate 66 06/07/19 08:48 Respiratory Rate 20 06/07/19 08:50 Blood Pressure 133/54 L 06/07/19 08:48 O2 Sat by Pulse Oximetry (%) 96 06/07/19 08:50 Physical exam: Gen: patient sell appearing, found lying in bed awake and alert. Lungs: clear to auscultation bilaterally down to the bases Heart: RRR s1, s2 heard. No murmurs, gallops or rubs heard. Abdomen: soft, nontender, not distended, bowel sounds heard. Extremities: no peripheral edema. Active Medications Albuterol Sulfate (Ventolin Hfa Inhaler -) 2 puff IH Q6H PRN PRN Reason: SHORT OF BREATH/WHEEZING Aspirin (Asa -) 81 mg PO DAILY [facility] Last Admin: 06/07/19 09:18 Dose: 81 mg Famotidine (Acid Groutman) 10 mg PO BID [facility] Last Admin: 06/07/19 09:18 Dose: 10 mg Insulin Aspart (Novolog Vial Sliding Scale -) 1 vial SQ ACHS [facility]; Protocol Last Admin: 06/07/19 12:12 Dose: 2 units Metformin HCl (Glucophage -) 1,000 mg PO AM [facility] Last Admin: 06/07/19 06:18 Dose: Not Given Metoprolol Succinate (Toprol Xl -) 25 mg PO DAILY [facility] Last Admin: 06/07/19 09:18 Dose: 25 mg Mometasone Furoate (Asmanex 220mcg -) 1 puff IH HS [facility] Last Admin: 06/06/19 21:48 Dose: 1 inhaler Non-Formulary Medication (Nateglinide) 120 mg PO TID [facility] Pioglitazone HCl (Actos -) 15 mg PO AM [facility] Last Admin: 06/07/19 06:18 Dose: Not Given Valsartan (Diovan -) 160 mg PO DAILY [facility] Last Admin: 06/07/19 09:18 Dose: 160 mg Home Medications Medication Instructions Recorded Aspirin [ASA -] 81 mg PO DAILY 04/12/17 Metoprolol Succinate [Toprol XL -] 25 mg PO DAILY 04/12/17 Nateglinide [Starlix (Nf) -] 120 mg PO TID 04/12/17 Olmesartan Medoxomil [Benicar -] 20 mg PO DAILY 04/12/17 Albuterol Sulfate Inhaler - 1 - 2 inh PO Q4H PRN 04/28/18 [Ventolin HFA Inhaler -] Pioglitazone HCl 15 mg PO DAILY 04/28/18 Ranitidine HCl 150 mg PO BID 04/28/18 Ferrous Sulfate [Feosol] 325 mg PO DAILY 02/15/19 Fluticasone Propionate [Flovent 110 mcg IH BID 03/24/19 Diskus] Metformin HCl [Glucophage] 1,000 mg PO DAILY 03/24/19 Allergies Allergy/AdvReac Type Severity Reaction Status Date / Time No Known Allergies Allergy Verified 06/05/19 12:04 CBC, BMP 06/07/19 06:22 06/07/19 06:22 Assessment and plan: The patient is a 79 yo f w/ PMH chronic mild anemia who presents with an acute Hb drop of approx. 4g over 2 months. #anemia likely 2/2 occult blood loss -iron studies normal -LDH normal -retics elevated -haptoglobin pending -Unlikely to be hemolytic in origin -patient requires GI workup to rule out occult loss/malignancy -patient for colonoscopy tomorrow; prep underway
[2019-06-07] MEDS: MOMETASONE FUROATE 220 MCG/IH INHALER IH SCH (21:28)
--- NOTE | 2019-06-07 22:53 | PN ---
Progress Note (short form) - Note Progress Note: GI NOte: Colonoscopy cancelled earlier in the day as the patient refused to do the bowel prep. Please recall us if she changes her mind.
[2019-06-08] MEDS: PIOGLITAZONE HCL 15 MG TABLET (FP) PO SCH (06:19)
[2019-06-08] MEDS: INSULIN SLIDING SCALE (NOVOLOG) 1 VIAL SQ SCH ×3 (06:19→16:15)
[2019-06-08] MEDS: metFORMIN HCL 500 MG TABLET (FP) PO SCH (06:19)
[2019-06-08 06:40] LABS: BASO % 0.7 % (0-2.0); EOS % 1.3 % (0-4.5); HEMATOCRIT 31.2 % (32.4-45.2); HEMOGLOBIN 9.8 GM/dL (10.7-15.3); LYMPH % 30.9 % (8-40); MCH 25.8 pg (25.7-33.7); MCHC 31.4 g/dl (32.0-36.0); MEAN CELL VOLUME 82.1 fl (80-96); MEAN PLT VOLUME 7.8 fl (7.5-11.1); MONO % 15.5 % (3.8-10.2); NEUT % 51.6 % (42.8-82.8); PLATELET COUNT 262 K/MM3 (134-434); RDW 18.8 % (11.6-15.6); WHITE BLOOD COUNT 5.4 K/mm3 (4.0-10.0)
[2019-06-08 07:08] LABS: ALBUMIN 2.7 g/dl (3.4-5.0); BILIRUBIN,TOTAL 0.4 mg/dL (0.2-1); BLOOD UREA NITROGEN 21.1 mg/dL (7-18); CALCIUM 8.6 mg/dL (8.5-10.1); CREATININE 0.7 mg/dL (0.55-1.3); POTASSIUM 4.1 mmol/L (3.5-5.1); TOT PROT 5.6 g/dl (6.4-8.2)
[2019-06-08] MEDS: VALSARTAN 160 MG TABLET (UD) PO SCH (09:19)
[2019-06-08] MEDS: metoPROLOL SUCCINATE 25 MG TAB.SR.24H (FP) PO SCH (09:19)
[2019-06-08] MEDS: ASPIRIN 81 MG CHEWABLE TABLETS PO SCH (09:19)
[2019-06-08] MEDS: FAMOTIDINE 10 MG TABLET PO SCH (09:19)
--- NOTE | 2019-06-08 11:06 | PN ---
Progress Note (short form) - Note Progress Note: Patient is a 79-year-old Portuguese female with known case of coronary artery disease, angina pectoris status post PCI/stenting, history of recurring anemia, hypertension, hypertensive cardiovascular disease, noninsulin dependent diabetes mellitus, oxygen dependent COPD, history of hiatus hernia/ gastroesophageal reflux and history of tobacco abuse. Patient was found to have severe recurrence of anemia she denies any chest pain or discomfort, has mild exertional dyspnea and underwent blood transfusion. Denies having chest pain or discomfort, no dyspnea was reported. Patient appears to have refused colonoscopy. Active Medications Albuterol Sulfate (Ventolin Hfa Inhaler -) 2 puff IH Q6H PRN PRN Reason: SHORT OF BREATH/WHEEZING Aspirin (Asa -) 81 mg PO DAILY [facility] Last Admin: 06/08/19 09:19 Dose: 81 mg Famotidine (Acid Broadcaster) 10 mg PO BID [facility] Last Admin: 06/08/19 09:19 Dose: 10 mg Insulin Aspart (Novolog Vial Sliding Scale -) 1 vial SQ ACHS [facility]; Protocol Last Admin: 06/08/19 06:19 Dose: Not Given Metformin HCl (Glucophage -) 1,000 mg PO AM [facility] Last Admin: 06/08/19 06:19 Dose: Not Given Metoprolol Succinate (Toprol Xl -) 25 mg PO DAILY [facility] Last Admin: 06/08/19 09:19 Dose: 25 mg Mometasone Furoate (Asmanex 220mcg -) 1 puff IH HS [facility] Last Admin: 06/07/19 21:28 Dose: 1 inhaler Non-Formulary Medication (Nateglinide) 120 mg PO TID [facility] Pioglitazone HCl (Actos -) 15 mg PO AM [facility] Last Admin: 06/08/19 06:19 Dose: Not Given Valsartan (Diovan -) 160 mg PO DAILY [facility] Last Admin: 06/08/19 09:19 Dose: 160 mg PHYSICAL EXAMINATION: General: 79-year-old alert female was in no acute distress. Mild pallor, no cyanosis, clubbing or jaundice. Last Vital Signs Temp Pulse Resp BP Pulse Ox 97.9 F 67 20 129/56 L 96 06/08/19 08:21 06/08/19 08:21 06/08/19 08:21 06/08/19 08:21 06/08/19 08:20 Neck: Supple. No jugular venous distention. Carotids were 2+, upstrokes were normal, no bruits were heard, and no thyromegaly was present. Heart: PMI was in the 5th intercostal space, no heaves or thrills. Heart sounds were slightly distant. S1 and S2 were normal. Ejection systolic murmur grade I/ was heard at the 2nd right intercostal space, murmur was nonradiating. No diastolic murmur or gallops were heard. Lungs: Clear on auscultation. Abdomen: Protuberant, soft and nontender. No hepatosplenomegaly or palpable masses were felt. Bowel sounds are present. No bruits were heard. Extremities: No calf tenderness or dependent edema, surgical scar over the left knee. Pulses were 2+, dorsalis pedis and posterior tibial pulses were weak. Laboratory Results - last 24 hr 06/07/19 06/07/19 06/07/19 06:22 12:07 16:59 WBC RBC Hgb Hct MCV MCH MCHC RDW Plt Count MPV Absolute Neuts (auto) Neutrophils % Lymphocytes % Monocytes % Eosinophils % Basophils % Nucleated RBC % Haptoglobin 137 Sodium Potassium Chloride Carbon Dioxide Anion Gap BUN Creatinine Est GFR (CKD-EPI)AfAm Est GFR (CKD-EPI)NonAf POC Glucometer 165 245 Random Glucose Calcium Total Bilirubin AST ALT Alkaline Phosphatase Total Protein Albumin 06/07/19 06/08/19 06/08/19 21:27 06:01 06:02 WBC 5.4 RBC 3.80 Hgb 9.8 L Hct 31.2 L MCV 82.1 MCH 25.8 MCHC 31.4 L RDW 18.8 H Plt Count 262 MPV 7.8 Absolute Neuts (auto) 2.8 Neutrophils % 51.6 Lymphocytes % 30.9 Monocytes % 15.5 H Eosinophils % 1.3 Basophils % 0.7 Nucleated RBC % 0 Haptoglobin Sodium Potassium Chloride Carbon Dioxide Anion Gap BUN Creatinine Est GFR (CKD-EPI)AfAm Est GFR (CKD-EPI)NonAf POC Glucometer 102 150 Random Glucose Calcium Total Bilirubin AST ALT Alkaline Phosphatase Total Protein Albumin 06/08/19 06:02 WBC RBC Hgb Hct MCV MCH MCHC RDW Plt Count MPV Absolute Neuts (auto) Neutrophils % Lymphocytes % Monocytes % Eosinophils % Basophils % Nucleated RBC % Haptoglobin Sodium 142 Potassium 4.1 Chloride 104 Carbon Dioxide 32 Anion Gap 7 L BUN 21.1 H Creatinine 0.7 Est GFR (CKD-EPI)AfAm 95.51 Est GFR (CKD-EPI)NonAf 82.41 POC Glucometer Random Glucose 145 H Calcium 8.6 Total Bilirubin 0.4 AST 14 L ALT 12 L Alkaline Phosphatase 50 Total Protein 5.6 L Albumin 2.7 L IMPRESSION: 1. Coronary artery disease, status post percutaneous coronary intervention/ stenting, clinical presentation and lab findings consistent with acute coronary syndrome. 2. Anemia, etiology to be determined. 3. Status post cholangitis/ impacted gallstone. 4. Chronic obstructive pulmonary disease, oxygen dependent. 5. Noninsulin dependent diabetes mellitus. 6. Status post cerebrovascular accident without residual sequelae. 7. Hypertension, currently normotensive. 8. History of tobacco abuse. 9. History of hiatus hernia and gastroesophageal reflux disease. 10. Dyslipidemia. 11. Acute on chronic kidney injury. RECOMMENDATION: 1. Counseled regarding cessation of smoking. 2. Close follow up of hemoglobin and hematocrit. 3. Continue current cardiac medications. NEIL KRAMER M.D., [facility]
[2019-06-08] MEDS ORDERED: INSULIN (NOVOLOG) ASPART 100 UNITS/ML 10ML VIAL ONE ×2 (11:19→16:04)
--- NOTE | 2019-06-08 13:13 | PN ---
Progress Note, Physician History of Present Illness: Pt w/o SOB, CP, palpitation, abd pain, N, V. - Current Medication List Current Medications: Active Medications Albuterol Sulfate (Ventolin Hfa Inhaler -) 2 puff IH Q6H PRN PRN Reason: SHORT OF BREATH/WHEEZING Aspirin (Asa -) 81 mg PO DAILY [facility] Last Admin: 06/08/19 09:19 Dose: 81 mg Famotidine (Acid Artillery Or Naval Gunfire Observer) 10 mg PO BID [facility] Last Admin: 06/08/19 09:19 Dose: 10 mg Insulin Aspart (Novolog Vial Sliding Scale -) 1 vial SQ ACHS [facility]; Protocol Last Admin: 06/08/19 11:20 Dose: 6 units Metformin HCl (Glucophage -) 1,000 mg PO AM [facility] Last Admin: 06/08/19 06:19 Dose: Not Given Metoprolol Succinate (Toprol Xl -) 25 mg PO DAILY [facility] Last Admin: 06/08/19 09:19 Dose: 25 mg Mometasone Furoate (Asmanex 220mcg -) 1 puff IH HS [facility] Last Admin: 06/07/19 21:28 Dose: 1 inhaler Non-Formulary Medication (Nateglinide) 120 mg PO TID [facility] Pioglitazone HCl (Actos -) 15 mg PO AM [facility] Last Admin: 06/08/19 06:19 Dose: Not Given Valsartan (Diovan -) 160 mg PO DAILY [facility] Last Admin: 06/08/19 09:19 Dose: 160 mg - Objective Vital Signs: Vital Signs Temperature 97.9 F 06/08/19 08:21 Pulse Rate 67 06/08/19 08:21 Respiratory Rate 20 06/08/19 08:21 Blood Pressure 129/56 L 06/08/19 08:21 O2 Sat by Pulse Oximetry (%) 96 06/08/19 08:20 Constitutional: Yes: No Distress, Calm Cardiovascular: Yes: Regular Rate and Rhythm, S1, S2 Respiratory: Yes: Regular, CTA Bilaterally. No: Rales Gastrointestinal: Yes: Normal Bowel Sounds, Soft. No: Tenderness Edema: No Neurological: Yes: Alert, Oriented Labs: CBC, BMP 06/08/19 06:02 06/08/19 06:02 INR, PTT INR 1.03 (0.83-1.09) 06/05/19 12:55 Problem List - Problems (1) Anemia Code(s): D64.9 - ANEMIA, UNSPECIFIED Qualifiers: Anemia type: unspecified type Qualified Code(s): D64.9 - Anemia, unspecified (2) MCDANIEL (dyspnea on exertion) Code(s): R06.09 - OTHER FORMS OF DYSPNEA (3) COPD (chronic obstructive pulmonary disease) Code(s): J44.9 - CHRONIC OBSTRUCTIVE PULMONARY DISEASE, UNSPECIFIED (4) CAD (coronary artery disease) Code(s): I25.10 - ATHSCL HEART DISEASE OF [place] CORONARY ARTERY W/O ANG PCTRS (5) Diabetes mellitus Code(s): E11.9 - TYPE 2 DIABETES MELLITUS WITHOUT COMPLICATIONS (6) HTN (hypertension) Code(s): I10 - ESSENTIAL (PRIMARY) HYPERTENSION (7) Choledocholithiasis Code(s): K80.50 - CALCULUS OF BILE DUCT W/O CHOLANGITIS OR CHOLECYST W/O OBST (8) NSTEMI (non-ST elevated myocardial infarction) Code(s): I21.4 - NON-ST ELEVATION (NSTEMI) MYOCARDIAL INFARCTION Assessment/Plan S/p PRBC tx H/H stable. Colonoscopy was cancelled as pt couldn't tolerate prep. Case was d/w Dr. Feng (pt's GI specialist) and recommended pt to see him in the office for f/u. This was d/w pt and pt's dg (Rebecca Yi was not available); all questions were answered, both agreed with plan. To DC home today.
[2019-06-08 15:57] VITALS: BP 127/63; PULSE 68; TEMP 98.2
--- NOTE | 2019-06-08 16:26 | DS ---
Physical Examination Vital Signs: Vital Signs Temperature 98.2 F 06/08/19 14:10 Pulse Rate 68 06/08/19 14:10 Respiratory Rate 20 06/08/19 14:10 Blood Pressure 127/63 06/08/19 14:10 O2 Sat by Pulse Oximetry (%) 96 06/08/19 08:20 Findings/Remarks: See Progress note for HPI, ROS, PE, Plan Labs: CBC, BMP 06/08/19 06:02 06/08/19 06:02 Discharge Summary Problems reviewed: Yes Reason For Visit: TRANSFUSION-DEPENDENT ANEMIA Current Active Problems Anemia (Acute) MCDANIEL (dyspnea on exertion) (Acute) Procedures: Principal: CXR Hospital Course: Pt had blood work with her GI from [facility] and was directed to go to ER for anemia. In ER it was confirmed that pt is anemic, and pt was transfused PRBC; pt also was c/o MCDANIEL for few days, had negative Trop I, was admitted to Telemetry. GI ( Dr. Feng), Heme (Dr Yu), Cardio (Dr Elliott) consults were called. Pt was scheduled for colonoscopy but couldn't tolerate the prep; her H/H was stable after transfusion, no blood in stool was noticed. Pt to be DC home with close follow-up with GI (Dr Feng). Condition: Improved - Instructions Diet, Activity, Other Instructions: Resume previous diet and daily activities Follow-up with Dr. Feng for further GI work-up Referrals: Duc Perez MD [Primary Care Provider] - (in 2 to 4 weeks. Please call for appointment) John Feng MD [Staff Physician] - (within 1 week. Please call his office for appointment in AM) Disposition: HOME - Home Medications Comprehensive Discharge Medication List: Ambulatory Orders Aspirin [ASA -] 81 mg PO DAILY 04/12/17 Metoprolol Succinate [Toprol XL -] 25 mg PO DAILY 04/12/17 Nateglinide [Starlix (Nf) -] 120 mg PO TID 04/12/17 Olmesartan Medoxomil [Benicar -] 20 mg PO DAILY 04/12/17 Albuterol Sulfate Inhaler - [Ventolin HFA Inhaler -] 1 - 2 inh PO Q4H PRN Pioglitazone HCl 15 mg PO DAILY 04/28/18 Ferrous Sulfate [Feosol] 325 mg PO DAILY 02/15/19 Fluticasone Propionate [Flovent Diskus] 110 mcg IH BID 03/24/19 Metformin HCl [Glucophage] 1,000 mg PO DAILY 03/24/19 Famotidine [Acid Recruitment Consultant] 10 mg PO BID 30 Days #60 tablet 06/08/19
== END 2019-06-08 16:43 | disposition home or self-care (01) | DRG 812 ==
LOC: SUPCPDRO 11:53 → JER 11:53 → JERBED 15:07 → J4W 17:51
PROVIDERS: ADMIT Internal Medicine; ATTEND Internal Medicine
PROC: 30233N1 Transfusion of Nonautologous Red Blood Cells into Peripheral Vein, Percutaneous Approach (ICD-10-PCS; principal; 2019-06-05)
DX: D64.9 Anemia, unspecified (principal); J43.9 Emphysema, unspecified; I25.10 Atherosclerotic heart disease of native coronary artery without angina pectoris; F17.210 Nicotine dependence, cigarettes, uncomplicated; E11.21 Type 2 diabetes mellitus with diabetic nephropathy; E11.319 Type 2 diabetes mellitus with unspecified diabetic retinopathy without macular edema; I11.0 Hypertensive heart disease with heart failure; E78.00 Pure hypercholesterolemia, unspecified; I50.9 Heart failure, unspecified; F32.9 Major depressive disorder, single episode, unspecified; I25.2 Old myocardial infarction; I27.20 Pulmonary hypertension, unspecified; K80.50 Calculus of bile duct without cholangitis or cholecystitis without obstruction; K21.9 Gastro-esophageal reflux disease without esophagitis; K59.09 Other constipation; K44.9 Diaphragmatic hernia without obstruction or gangrene; D12.6 Benign neoplasm of colon, unspecified; Z95.5 Presence of coronary angioplasty implant and graft; Z99.81 Dependence on supplemental oxygen; Z86.73 Personal history of transient ischemic attack (TIA), and cerebral infarction without residual deficits; Z79.4 Long term (current) use of insulin
CPT/HCPCS: 36415; 36430; 36511; 71046-TC-FY; 80053; 82272; 82550; 82728; 82803; 82962; 83010; 83540; 83550; 83615; 83880; 84484; 85025; 85027; 85044; 85379; 85610; 85730; 86850; 86900; 86901; 86922; 93005; 93010; 93306-TC; 99284-25; P9038; P9058

== ENCOUNTER 2019-09-29 10:18 | Inpatient (IN) | payer OTHER ==
[2019-09-29] MEDS ORDERED: ALBUTEROL SO4 2.5/IPRATROPIUM 0.5 INH SOL 3 ML VIAL.NEB. NEB ONE ×2 (11:09→11:44)
[2019-09-29 12:33] LABS: VENOUS PC02 59.5 mmHg (38-52); VENOUS PH 7.31 (7.31-7.41)
[2019-09-29 12:40] LABS: BASO % 0.3 % (0-2.0); EOS % 0.4 % (0-4.5); HEMATOCRIT 32.7 % (32.4-45.2); HEMOGLOBIN 10.6 GM/dL (10.7-15.3); LYMPH % 25.2 % (8-40); MCH 29.8 pg (25.7-33.7); MCHC 32.5 g/dl (32.0-36.0); MEAN CELL VOLUME 91.9 fl (80-96); MEAN PLT VOLUME 8.4 fl (7.5-11.1); MONO % 9.8 % (3.8-10.2); NEUT % 64.3 % (42.8-82.8); PLATELET COUNT 297 K/MM3 (134-434); RBC 3.56 M/mm3 (3.60-5.2); RDW 16.1 % (11.6-15.6); WHITE BLOOD COUNT 7.3 K/mm3 (4.0-10.0)
[2019-09-29] MEDS ORDERED: PIPERACILLIN/TAZOB 3.375 GM 3.375 GM in DEXTROSE 5%-WATER - 50 ML IVPB ONE (13:04)
[2019-09-29 13:08] LABS: ALBUMIN 3.2 g/dl (3.4-5.0); ALK PHOS 51 U/L (45-117); ANION GAP 7 MMOL/L (8-16); BILIRUBIN,TOTAL 0.4 mg/dL (0.2-1); BLOOD UREA NITROGEN 31.4 mg/dL (7-18); CALCIUM 9.1 mg/dL (8.5-10.1); CHLORIDE 100 mmol/L (98-107); CO2 28 mmol/L (21-32); GLUCOSE,RANDOM 176 mg/dL (74-106); POTASSIUM 5.3 mmol/L (3.5-5.1); SGOT/AST 33 U/L (15-37); SGPT/ALT 15 U/L (13-61); SODIUM 134 mmol/L (136-145)
[2019-09-29 13:14] LABS: EPI CELLS 2.4 /HPF (0-5/HPF); HYALINE CASTS 6 /lpf (0-8); URINE APPEARANCE CLEAR; URINE BACTERIA 4.6 /hpf (NEGATIVE); URINE BILIRUBIN NEGATIVE (NEGATIVE); URINE COLOR YELLOW; URINE GLUCOSE (UA) 3+ (NEGATIVE); URINE KETONE NEGATIVE (NEGATIVE); URINE LEUK ESTERASE NEGATIVE (NEGATIVE); URINE NITRITE NEGATIVE (NEGATIVE); URINE PROTEIN 2+ (NEGATIVE); URINE RBC 4 /hpf (0-4); URINE UROBILINOGEN 0.2 mg/dL (0.2-1.0); URINE WBC 1 /hpf (0-5)
[2019-09-29] MEDS ORDERED: PIPERACILLIN/TAZOB 3.375 GM 3.375 GM/50 ML BAG IVPB ONE (13:20)
--- NOTE | 2019-09-29 13:21 | PDOC ---
Documentation entered by Roxann Borges SCRIBE, acting as scribe for Dustin Gonzalez MD. Dustin Gonzalez MD: This documentation has been prepared by the Jony ece Sammi, SCRIBE, under my direction and personally reviewed by me in its entirety. I confirm that the documentation accurately reflects all work, treatment, procedures, and medical decision making performed by me. History of Present Illness - General Stated Complaint: FLU SYMPTOMS - History of Present Illness Initial Comments: 09/29/19 10:36 The patient is a 79 year old female, with PMH of DM, HTN, COPD (Home O2), CVA, CAD, NV s/p stents, SBO, asthma, symptomatic anemia, and biliary sepsis s/p ERSP , who presents to the emergency department for evaluation of 1 week of worsening SOB and productive cough, brownish in color with associated diffuse pleuritic chest pain and intermittent chills. The patient states she is on 3.5 L of home oxygen at night with minor relief of symptoms. Denies headache and dizziness. Denies nausea, vomiting, diarrhea and constipation. Denies dysuria, frequency, urgency and hematuria. PCP: Androne Allergies: NKDA Social hx: Former smoker ~50 years, quit ~16 years ago, recently returned to smoking 1-2 pack/day Past History - Past Medical History Allergies/Adverse Reactions: Allergies Allergy/AdvReac Type Severity Reaction Status Date / Time No Known Allergies Allergy Verified 09/29/19 12:56 Home Medications: Ambulatory Orders Aspirin [ASA -] 81 mg PO DAILY 04/12/17 Metoprolol Succinate [Toprol XL -] 25 mg PO BID 04/12/17 Olmesartan Medoxomil [Benicar -] 20 mg PO DAILY 04/12/17 Albuterol Sulfate Inhaler - [Ventolin HFA Inhaler -] 1 - 2 inh PO Q4H PRN Pioglitazone HCl 15 mg PO DAILY 04/28/18 Ferrous Sulfate [Feosol] 325 mg PO DAILY 02/15/19 Metformin HCl [Glucophage] 1,000 mg PO BID 03/24/19 Brinzolamide [Azopt (Non-Formulary)] 5 ml OP TID 09/29/19 Budesonide/Formeterol Fumarate [SYMBICORT 80/4.5mcg -] 2 inh PO BID 09/29/19 Dicyclomine HCl 10 mg PO BID 09/29/19 Pantoprazole Sodium 40 mg PO BID 09/29/19 Simvastatin 40 mg PO DAILY 09/29/19 Sitagliptin Phosphate [Januvia] 100 mg PO DAILY 09/29/19 Anemia: Yes Asthma: Yes Cancer: No Cardiac Disorders: Yes (ASCAD) CVA: Yes COPD: Yes (EMPHYSEMA) CHF: Yes Dementia: No Diabetes: Yes GI Disorders: Yes (HIATAL HERNIA,H/O COLON ADENOMA) Disorders: No HTN: Yes Hypercholesterolemia: Yes Liver Disease: No Seizures: No Thyroid Disease: No - Surgical History Abdominal Surgery: No Appendectomy: Yes Cardiac Surgery: Yes (mi- s/p stent) Cholecystectomy: Yes Lung Surgery: No Neurologic Surgery: No Orthopedic Surgery: No - Immunization History Immunization Up to Date: No - Psycho Social/Smoking Cessation Hx Smoking History: Former smoker Have you smoked in the past 12 months: No Number of Cigarettes Smoked Daily: 4 If you are a former smoker, when did you quit?: 6 years ago Hx Alcohol Use: No Drug/Substance Use Hx: No Substance Use Type: None Hx Substance Use Treatment: No Review of Systems - Review of Systems Comments:: 09/29/19 10:37 Constitutional: +chills. No recent illness; no fever Cardiovascular: +pleuritic chest pain Pulmonary: +productive cough. +SOB. Gastrointestinal: No nausea; no vomiting; no diarrhea Skin: No rash Musculoskeletal: No joint swelling Neurological: No weakness; oo numbness; No Headache; no vertigo; no lightheadedness *Physical Exam - Vital Signs Last Vital Signs Temp Pulse Resp BP Pulse Ox 97.8 F 86 18 125/56 L 100 09/29/19 10:50 09/29/19 10:50 09/29/19 10:50 09/29/19 10:50 09/29/19 10:50 - Physical Exam 09/29/19 10:36 Vitals: Triage vital signs reviewed General Appearance: No acute distress, well nourished, well developed Eyes: Pupils equal reactive round, extraocular movement intact Neck: Supple; No nuchal rigidity Chest Wall: Nontender Cardiac: Regular rate and rhythm, no murmurs, no rubs, no gallops Lungs:+faint breath sounds on left +crackles and faint breath sounds on right Abdomen: Soft, nondistended, normal bowel sounds, nontender to palpation Extremities: Full range of motion to all extremities, no cyanosis, clubbing, or edema Skin: Warm and dry, no rashes or lesions, no rash, no petechiae Neuro: AOX3; Cranial Nerves 2-12 grossly intact, Strength intact to all extremities, Sensation intact to all extremities, gait normal ED Treatment Course - LABORATORY CBC & Chemistry Diagram: 09/29/19 12:24 09/29/19 12:24 - ADDITIONAL ORDERS Additional order review: Laboratory Results 09/29/19 09/29/19 09/29/19 12:24 12:24 12:24 VBG pH 7.31 POC VBG pCO2 59.5 H POC VBG pO2 51 H VBG HCO3 29.3 H VBG O2 Sat (Marie) 77.6 VBG Base Excess 2.7 H Sodium 134 L Potassium 5.3 H Chloride 100 Carbon Dioxide 28 Anion Gap 7 L BUN 31.4 H Creatinine 1.0 Est GFR (CKD-EPI)AfAm 62.05 Est GFR (CKD-EPI)NonAf 53.54 Random Glucose 176 H Lactic Acid 0.9 Calcium 9.1 Total Bilirubin 0.4 AST 33 ALT 15 Alkaline Phosphatase 51 Troponin I < 0.02 Total Protein 7.0 Albumin 3.2 L 09/29/19 12:24 RBC 3.56 L MCV 91.9 MCHC 32.5 RDW 16.1 H MPV 8.4 Neutrophils % 64.3 D Lymphocytes % 25.2 Monocytes % 9.8 Eosinophils % 0.4 Basophils % 0.3 - RADIOLOGY Radiology Studies Ordered: Category Date Time Status CHEST X-RAY PORTABLE* [RAD] Stat Radiology 09/29/19 11:05 Completed - Medications Given in the ED: ED Medications Discontinued Medications Generic Name Dose Route Start Last Admin Trade Name Freq PRN Reason Stop Dose Admin Albuterol/Ipratropium 3 amp 09/29/19 11:09 09/29/19 12:15 Duoneb - NEB 09/29/19 11:10 3 amp ONCE ONE Administration Medical Decision Making - Medical Decision Making 09/29/19 13:11 79 years old advanced emphysema on supplemental oxygen at night with increasing O2 requirements found to be hypoxic in the 70s this morning with 1 week history of cough productive for brown sputum clinically and with radiographic confirmation patient has a right lower lobe pneumonia Recent admission to [facility] We will cover with broad-spectrum antibiotics for hospital-acquired pneumonia We will admit patient to [facility] for further management. Discharge - Discharge Information Problems reviewed: Yes Clinical Impression/Diagnosis: Pneumonia Qualifiers: Pneumonia type: due to unspecified organism Laterality: right Lung location: lower lobe of lung Qualified Code(s): J18.9 - Pneumonia, unspecified organism Condition: Fair - Admission Yes - Follow up/Referral Referrals: Duc Perez MD [Primary Care Provider] - - Patient Discharge Instructions - Post Discharge Activity
[2019-09-29] MEDS ORDERED: methylPREDNISolone NA SUCC 125 MG/2 ML VIAL IVPB ONE (13:59)
[2019-09-29] MEDS ORDERED: ALBUTEROL SO4 0.083% IH SOL 2.5 MG/3 ML VIAL.NEB. NEB ONE (14:11)
[2019-09-29] MEDS ORDERED: methylPREDNISolone NA SUCC 125 MG/2 ML VIAL ONE (14:11)
[2019-09-29] MEDS: ALBUTEROL SO4 0.083% IH SOL 2.5 MG/3 ML VIAL.NEB. NEB SCH ×2 (14:16→15:04)
--- NOTE | 2019-09-29 19:05 | HP ---
Admitting History and Physical - Primary Care Physician PCP: Duc Perez - Admission Chief Complaint: Cough, SOB History of Present Illness: Pt with cough for few days, got worse over the last 2 days, with productive sputum, SOB. Pt came to ER today, found to have PNA. 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: CVA (residual left lower lip numbness) Cardiovascular: Yes: CAD, HTN, [place], Hyperlipdemia Pulmonary: Yes: COPD Gastrointestinal: Yes: Constipation, Hiatal Hernia Renal/: Yes: Renal Inusuff Psych: Yes: Depression Endocrine: Yes: Diabetes Mellitus (with diabetic retinopathy ( had interventions ) and nephropathy ) - Past Surgical History Past Surgical History: Yes: Appendectomy, Tubal Ligation, Colonoscopy, Upper Endoscopy, Breast Biopsy, Cholecystectomy - Smoking History Smoking history: Former smoker Have you smoked in the past 12 months: No Aproximately how many cigarettes per day: 4 If you are a former smoker, when did you quit?: 6 years ago - Alcohol/Substance Use Hx Alcohol Use: No History of Substance Use: reports: None - Social History ADL: Independent 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 History of Recent Travel: No Home Medications - Allergies Allergies/Adverse Reactions: Allergies Allergy/AdvReac Type Severity Reaction Status Date / Time No Known Allergies Allergy Verified 09/29/19 12:56 - Home Medications Home Medications: Ambulatory Orders Aspirin [ASA -] 81 mg PO DAILY 04/12/17 Metoprolol Succinate [Toprol XL -] 25 mg PO BID 04/12/17 Olmesartan Medoxomil [Benicar -] 20 mg PO DAILY 04/12/17 Albuterol Sulfate Inhaler - [Ventolin HFA Inhaler -] 1 - 2 inh PO Q4H PRN Pioglitazone HCl 15 mg PO DAILY 04/28/18 Ferrous Sulfate [Feosol] 325 mg PO DAILY 02/15/19 Metformin HCl [Glucophage] 1,000 mg PO BID 03/24/19 Brinzolamide [Azopt (Non-Formulary)] 5 ml OP TID 09/29/19 Budesonide/Formeterol Fumarate [SYMBICORT 80/4.5mcg -] 2 inh PO BID 09/29/19 Dicyclomine HCl 10 mg PO BID 09/29/19 Pantoprazole Sodium 40 mg PO BID 09/29/19 Simvastatin 40 mg PO DAILY 09/29/19 Sitagliptin Phosphate [Januvia] 100 mg PO DAILY 09/29/19 Review of Systems - Review of Systems Constitutional: reports: Unintentional Wgt. Loss. denies: Chills, Fever Eyes: denies: Blurred Vision, Double Vision HENT: denies: Ear Discharge, Nasal Congestion, Throat Pain Neck: reports: Stiffness. denies: Pain on Movement Cardiovascular: reports: Edema, Palpitations. denies: Chest Pain Respiratory: reports: Cough, SOB on Exertion Gastrointestinal: denies: Abdominal Pain, Nausea, Vomiting Genitourinary: reports: Discharge. denies: Burning, Dysuria Musculoskeletal: denies: Back Pain, Muscle Pain Integumentary: denies: Bruising, Rash Neurological: reports: Weakness. denies: Change in Speech, Numbness Endocrine: reports: Excessive Sweating. denies: Flushing Hematology/Lymphatic: denies: Easily Bruised, Excessive Bleeding Psychiatric: reports: Anxiety, Depression Physical Examination Vital Signs: Vital Signs Temperature 97.5 F L 09/29/19 16:56 Pulse Rate 99 H 09/29/19 16:56 Respiratory Rate 18 09/29/19 16:56 Blood Pressure 97/57 L 09/29/19 16:56 O2 Sat by Pulse Oximetry (%) 100 09/29/19 16:56 Constitutional: Yes: No Distress, Calm Eyes: Yes: EOM Intact, PERRL HENT: Yes: Normocephalic. No: Epistaxis, Rhinnorhea Neck: Yes: Trachea Midline. No: Lymphadenopathy Cardiovascular: Yes: Regular Rate and Rhythm, S1, S2 Respiratory: Yes: Regular, Rhonchi Gastrointestinal: Yes: Normal Bowel Sounds, Soft (at bases). No: Tenderness ...Rectal Exam: No: Deferred Renal/: Yes: CVA Tenderness - Left, CVA Tenderness - Right Musculoskeletal: No: Joint Stiffness, Joint Swelling Edema: No Integumentary: No: Bruising, Rash Neurological: Yes: Alert, Oriented Labs: CBC, BMP 09/29/19 12:24 09/29/19 12:24 Imaging - Results Chest X-ray: Report Reviewed Problem List - Problems (1) Pneumonia Code(s): J18.9 - PNEUMONIA, UNSPECIFIED ORGANISM Qualifiers: Pneumonia type: due to unspecified organism Laterality: right Lung location: lower lobe of lung Qualified Code(s): J18.9 - Pneumonia, unspecified organism (2) COPD (chronic obstructive pulmonary disease) Code(s): J44.9 - CHRONIC OBSTRUCTIVE PULMONARY DISEASE, UNSPECIFIED (3) CAD (coronary artery disease) Code(s): I25.10 - ATHSCL HEART DISEASE OF [place] CORONARY ARTERY W/O ANG PCTRS (4) Diabetes mellitus Code(s): E11.9 - TYPE 2 DIABETES MELLITUS WITHOUT COMPLICATIONS (5) HLD (hyperlipidemia) Code(s): E78.5 - HYPERLIPIDEMIA, UNSPECIFIED (6) HTN (hypertension) Code(s): I10 - ESSENTIAL (PRIMARY) HYPERTENSION Assessment/Plan IB abtx IV steroids Pulmonary consult ID consult AM labs.
[2019-09-29] MEDS ORDERED: ALBUTEROL SO4 HFA INHALER IH PRN (19:06)
[2019-09-29] MEDS: DICYCLOMINE HCL 10 MG CAPSULE PO SCH (22:48)
[2019-09-29] MEDS: BUDESONIDE/FORMETEROL FUMARATE 80/4.5 mcg INHALER IH SCH (22:49)
[2019-09-29] MEDS: metoPROLOL SUCCINATE 25 MG TAB.SR.24H (FP) PO SCH (22:49)
[2019-09-29] MEDS: PANTOPRAZOLE 40 MG TABLET PO SCH (22:49)
[2019-09-30] MEDS ORDERED: PIPERACILLIN/TAZOB 3.375 GM 3.375 GM in DEXTROSE 5%-WATER - 50 ML IVPB ONE (02:00)
[2019-09-30] MEDS ORDERED: PIPERACILLIN/TAZOBACTAM 3.375 GM VIAL IVPB ONE (02:15)
[2019-09-30] MEDS ORDERED: DEXTROSE 5%-WATER - 50 ML IVPB ONE ×2 (02:15→14:31)
[2019-09-30] MEDS: methylPREDNISolone NA SUCC 40 MG/1 ML VIAL IVPUSH SCH ×3 (02:19→17:07)
[2019-09-30] MEDS: metFORMIN HCL 500 MG TABLET (FP) PO SCH ×2 (07:03→17:07)
[2019-09-30 08:09] LABS: HEMATOCRIT 30.2 % (32.4-45.2); HEMOGLOBIN 9.7 GM/dL (10.7-15.3); MCH 29.4 pg (25.7-33.7); MCHC 32.2 g/dl (32.0-36.0); MEAN CELL VOLUME 91.3 fl (80-96); MEAN PLT VOLUME 8.2 fl (7.5-11.1); PLATELET COUNT 308 K/MM3 (134-434); RBC 3.31 M/mm3 (3.60-5.2); WHITE BLOOD COUNT 2.7 K/mm3 (4.0-10.0)
[2019-09-30 08:36] LABS: ALBUMIN 2.9 g/dl (3.4-5.0); BILIRUBIN,TOTAL 0.3 mg/dL (0.2-1); BLOOD UREA NITROGEN 46.5 mg/dL (7-18); CREATININE 1.4 mg/dL (0.55-1.3); POTASSIUM 5.8 mmol/L (3.5-5.1); TOT PROT 6.7 g/dl (6.4-8.2)
[2019-09-30] MEDS: PANTOPRAZOLE 40 MG TABLET PO SCH ×2 (09:36→21:40)
[2019-09-30] MEDS: FERROUS SO4 325 MG TABLET (FP) PO SCH (09:36)
[2019-09-30] MEDS: VALSARTAN 160 MG TABLET (UD) PO SCH (09:36)
[2019-09-30] MEDS: metoPROLOL SUCCINATE 25 MG TAB.SR.24H (FP) PO SCH ×2 (09:36→21:40)
[2019-09-30] MEDS: ASPIRIN 81 MG CHEWABLE TABLETS PO SCH (09:36)
--- NOTE | 2019-09-30 10:55 | CON.PULM ---
Consult Consult Specialty:: PULM/CCM Referred by:: SHABBIR Reason for Consultation:: SOB - History of Present Illness Chief Complaint: SOB History of Present Illness: 79 F, COPD due to previous smoking (quit 6 years ago), questionable asthma, CVA , CAD, HTN, HPL, DM, and renal insufficiency. Admitted via the ER due to increasing productive cough and shortness of breath for the past 2 days. No travel history or sick contacts. No hemoptysis or night sweats. There is no history that would be consistent with OSAS. CXR: RLL infiltrate. 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 No: O2 Dependent, Pneumonia, Previously Intubated, Pulmonary Embolus, Pulmonary Fibrosis, Sleep Apnea Gastrointestinal: Yes: Constipation, Hiatal Hernia Renal/: Yes: Renal Inusuff ...: No Psych: Yes: Depression Endocrine: Yes: Diabetes Mellitus (with diabetic retinopathy ( had interventions ) and nephropathy ) - Past Surgical History Past Surgical History: Yes: Appendectomy, Tubal Ligation, Colonoscopy, Upper Endoscopy, Breast Biopsy, Cholecystectomy - Alcohol/Substance Use Hx Alcohol Use: No History of Substance Use: reports: None - Smoking History Smoking history: Former smoker Have you smoked in the past 12 months: No Aproximately how many cigarettes per day: 4 If you are a former smoker, when did you quit?: 6 years ago - Social History Usual Living Arrangement: With Spouse ADL: Independent 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 History of Recent Travel: No Home Medications - Allergies Allergies/Adverse Reactions: Allergies Allergy/AdvReac Type Severity Reaction Status Date / Time No Known Allergies Allergy Verified 09/29/19 12:56 - Home Medications Home Medications: Ambulatory Orders Aspirin [ASA -] 81 mg PO DAILY 04/12/17 Metoprolol Succinate [Toprol XL -] 25 mg PO BID 04/12/17 Olmesartan Medoxomil [Benicar -] 20 mg PO DAILY 04/12/17 Albuterol Sulfate Inhaler - [Ventolin HFA Inhaler -] 1 - 2 inh PO Q4H PRN Pioglitazone HCl 15 mg PO DAILY 04/28/18 Ferrous Sulfate [Feosol] 325 mg PO DAILY 02/15/19 Metformin HCl [Glucophage] 1,000 mg PO BID 03/24/19 Brinzolamide [Azopt (Non-Formulary)] 5 ml OP TID 09/29/19 Budesonide/Formeterol Fumarate [SYMBICORT 80/4.5mcg -] 2 inh PO BID 09/29/19 Dicyclomine HCl 10 mg PO BID 09/29/19 Pantoprazole Sodium 40 mg PO BID 09/29/19 Simvastatin 40 mg PO DAILY 09/29/19 Sitagliptin Phosphate [Januvia] 100 mg PO DAILY 09/29/19 Review of Systems - Review of Systems Constitutional: reports: Lethargy, Loss of Appetite, Malaise. denies: Chills, Fever, Night Sweats Eyes: reports: No Symptoms HENT: reports: No Symptoms Neck: reports: No Symptoms Cardiovascular: reports: Shortness of Breath. denies: Chest Pain, Edema, Palpitations Respiratory: reports: Cough, SOB, SOB on Exertion, Wheezing. denies: Hemoptysis , Snoring Gastrointestinal: reports: No Symptoms Genitourinary: reports: No Symptoms Breasts: reports: No Symptoms Reported Musculoskeletal: reports: No Symptoms Integumentary: reports: No Symptoms Neurological: reports: No Symptoms Endocrine: reports: No Symptoms Hematology/Lymphatic: reports: No Symptoms Psychiatric: reports: No Symptoms Physical Exam Vital Sings: Vital Signs Temperature 97.4 F L 09/30/19 06:00 Pulse Rate 66 09/30/19 06:00 Respiratory Rate 09/30/19 06:00 Blood Pressure 110/52 L 09/30/19 06:00 O2 Sat by Pulse Oximetry (%) 92 L 09/30/19 05:30 Constitutional: Yes: No Distress, Calm, Thin Eyes: Yes: Conjunctiva Clear, EOM Intact HENT: Yes: Atraumatic, Normocephalic Neck: Yes: Supple, Trachea Midline Cardiovascular: Yes: Regular Rate and Rhythm Respiratory: Yes: Cough, Diminished, On Nasal O2, Rhonchi, SOB, SOB on Exertion , Tachypnea, Wheezes. No: Accessory Muscle Use, Rales, Stridor ...Inspection: Yes: WNL ...Clubbing: No Gastrointestinal: Yes: Normal Bowel Sounds, Soft Renal/: Yes: WNL Musculoskeletal: Yes: WNL Extremities: Yes: WNL Edema: No Peripheral Pulses WNL: Yes Integumentary: Yes: WNL Neurological: Yes: WNL, Alert, Oriented ...Motor Strength: WNL Psychiatric: Yes: WNL, Alert, Oriented Labs: CBC, BMP 09/30/19 07:00 09/30/19 07:00 Imaging - Results Chest X-ray: Report Reviewed, Image Reviewed Cat Scan: Report Reviewed, Image Reviewed Problem List - Problems (1) Pneumonia Code(s): J18.9 - PNEUMONIA, UNSPECIFIED ORGANISM Qualifiers: Pneumonia type: due to unspecified organism Laterality: right Lung location: lower lobe of lung Qualified Code(s): J18.9 - Pneumonia, unspecified organism (2) Anemia Code(s): D64.9 - ANEMIA, UNSPECIFIED Qualifiers: Anemia type: unspecified type Qualified Code(s): D64.9 - Anemia, unspecified (3) Chronic renal insufficiency Code(s): N18.9 - CHRONIC KIDNEY DISEASE, UNSPECIFIED (4) MCDANIEL (dyspnea on exertion) Code(s): R06.09 - OTHER FORMS OF DYSPNEA (5) Presence of stent in coronary artery in patient with coronary artery disease Code(s): I25.10 - ATHSCL HEART DISEASE OF [place] CORONARY ARTERY W/O ANG PCTRS; Z95.5 - PRESENCE OF CORONARY ANGIOPLASTY IMPLANT AND GRAFT (6) Retinopathy due to secondary diabetes Code(s): E13.319 - OTH DIABETES W UNSP DIABETIC RETINOPATHY W/O MACULAR EDEMA (7) SOB (shortness of breath) Code(s): R06.02 - SHORTNESS OF BREATH (8) CAD (coronary artery disease) Code(s): I25.10 - ATHSCL HEART DISEASE OF [place] CORONARY ARTERY W/O ANG PCTRS (9) COPD (chronic obstructive pulmonary disease) Code(s): J44.9 - CHRONIC OBSTRUCTIVE PULMONARY DISEASE, UNSPECIFIED (10) Diabetes mellitus Code(s): E11.9 - TYPE 2 DIABETES MELLITUS WITHOUT COMPLICATIONS (11) HLD (hyperlipidemia) Code(s): E78.5 - HYPERLIPIDEMIA, UNSPECIFIED (12) HTN (hypertension) Code(s): I10 - ESSENTIAL (PRIMARY) HYPERTENSION Assessment/Plan Rocephin / Zithromax BD TX standing and PRN Medrol Urine antigen Do not suspect Influenza No smoking was counseled Will follow Thank you. Dr Wetson
[2019-09-30] MEDS: DICYCLOMINE HCL 10 MG CAPSULE PO SCH ×2 (11:30→21:40)
[2019-09-30] MEDS: CEFTRIAXONE 1 GM in DEXTROSE 5%-WATER - 50 ML IVPB SCH (12:34)
[2019-09-30] MEDS: PIOGLITAZONE HCL 15 MG TABLET PO SCH (12:44)
[2019-09-30] MEDS: AZITHROMYCIN IVPB 250 MG in DEXTROSE 5%-WATER - 250 ML IVPB SCH (12:55)
[2019-09-30] MEDS: BUDESONIDE/FORMETEROL FUMARATE 80/4.5 mcg INHALER IH SCH ×2 (13:34→21:42)
--- NOTE | 2019-09-30 14:16 | EKG ---
Test Reason : Blood Pressure : / mmHG Vent. Rate : 105 BPM Atrial Rate : 105 BPM P-R Int : 142 ms QRS Dur : 098 ms QT Int : 350 ms P-R-T Axes : 064 033 053 degrees QTc Int : 462 ms SINUS TACHYCARDIA POSSIBLE LEFT ATRIAL ENLARGEMENT BORDERLINE ECG WHEN COMPARED WITH ECG OF 05-JUN-2019 16:36, VENT. RATE HAS INCREASED BY 45 BPM NON-SPECIFIC CHANGE IN ST SEGMENT IN ANTERIOR LEADS T WAVE INVERSION NO LONGER EVIDENT IN ANTERIOR LEADS Confirmed by FIDE TARIQ MD ([id number]) on 09/30/2019 2:15:46 PM Referred By: Confirmed By:FIDE TARIQ MD
[2019-09-30] MEDS ORDERED: cefTRIAXone SODIUM 1 GM VIAL ONE (14:31)
[2019-09-30] MEDS ORDERED: PT OWN MED DRAWER 7, Y5N ONE ×2 (14:32→21:06)
[2019-09-30] MEDS: ALBUTEROL SO4 2.5/IPRATROPIUM 0.5 INH SOL 3 ML VIAL.NEB. NEB SCH ×2 (14:50→20:15)
[2019-09-30] MEDS: INSULIN SLIDING SCALE (NOVOLOG) 1 VIAL SQ SCH (17:12)
--- NOTE | 2019-09-30 19:48 | PN ---
Progress Note, Physician History of Present Illness: Pt is breathing better today. Pt w/o CP, palpitations, abd pain, nausea, vomiting. - Current Medication List Current Medications: Active Medications Albuterol Sulfate (Ventolin Hfa Inhaler -) 2 puff IH Q6H PRN PRN Reason: SHORT OF BREATH/WHEEZING Albuterol/Ipratropium (Duoneb -) 1 amp NEB RTID [facility] Last Admin: 09/30/19 14:50 Dose: 1 amp Aspirin (Asa -) 81 mg PO DAILY [facility] Last Admin: 09/30/19 09:36 Dose: 81 mg Atorvastatin Calcium (Lipitor -) 20 mg PO HS STEPH Budesonide/Formoterol Fumarate (Symbicort 80/4.5mcg -) 2 puff IH BID [facility] Last Admin: 09/30/19 13:34 Dose: 2 puff Dicyclomine HCl (Bentyl -) 10 mg PO BID [facility] Last Admin: 09/30/19 11:30 Dose: 10 mg Ferrous Sulfate (Feosol -) 325 mg PO DAILY [facility] Last Admin: 09/30/19 09:36 Dose: 325 mg Ceftriaxone Sodium 1 gm/ (Dextrose) 50 mls @ 100 mls/hr IVPB DAILY [facility]; Protocol Last Admin: 09/30/19 12:34 Dose: 100 mls/hr Azithromycin 250 mg/ Dextrose 250 mls @ 250 mls/hr IVPB DAILY [facility] Last Admin: 09/30/19 12:55 Dose: 250 mls/hr Insulin Aspart (Novolog Vial Sliding Scale -) 1 vial SQ BIDAC [facility]; Protocol Last Admin: 09/30/19 17:12 Dose: 10 unit Metformin HCl (Glucophage -) 1,000 mg PO BIDAC [facility] Last Admin: 09/30/19 17:07 Dose: 1,000 mg Methylprednisolone Sodium Succinate (Solu-Medrol -) 40 mg IVPUSH Q8H-IV [facility] Last Admin: 09/30/19 17:07 Dose: 40 mg Metoprolol Succinate (Toprol Xl -) 25 mg PO BID [facility] Last Admin: 09/30/19 09:36 Dose: 25 mg Non-Formulary Medication (Brinzolamide) 5 ml OP TID [facility] Pantoprazole Sodium (Protonix -) 40 mg PO BID [facility] Last Admin: 09/30/19 09:36 Dose: 40 mg Pioglitazone HCl (Actos -) 15 mg PO DAILY [facility] Last Admin: 09/30/19 12:44 Dose: 15 mg Sitagliptin Phosphate (Januvia -) 100 mg PO DAILY [facility] Last Admin: 09/30/19 12:50 Dose: 100 mg Valsartan (Diovan -) 160 mg PO DAILY [facility] Last Admin: 09/30/19 09:36 Dose: 160 mg - Objective Vital Signs: Vital Signs Temperature 97.8 F 09/30/19 18:00 Pulse Rate 79 09/30/19 18:00 Respiratory Rate 20 09/30/19 18:00 Blood Pressure 111/49 L 09/30/19 18:00 O2 Sat by Pulse Oximetry (%) 95 09/30/19 09:00 Constitutional: Yes: No Distress, Calm Cardiovascular: Yes: Regular Rate and Rhythm, S1, S2 Respiratory: Yes: Regular, Rhonchi Gastrointestinal: Yes: Normal Bowel Sounds, Soft. No: Tenderness Edema: No Neurological: Yes: Alert, Oriented Labs: CBC, BMP 09/30/19 07:00 09/30/19 07:00 Problem List - Problems (1) Pneumonia Code(s): J18.9 - PNEUMONIA, UNSPECIFIED ORGANISM Qualifiers: Pneumonia type: due to unspecified organism Laterality: right Lung location: lower lobe of lung Qualified Code(s): J18.9 - Pneumonia, unspecified organism (2) COPD (chronic obstructive pulmonary disease) Code(s): J44.9 - CHRONIC OBSTRUCTIVE PULMONARY DISEASE, UNSPECIFIED (3) CAD (coronary artery disease) Code(s): I25.10 - ATHSCL HEART DISEASE OF [place] CORONARY ARTERY W/O ANG PCTRS (4) Diabetes mellitus Code(s): E11.9 - TYPE 2 DIABETES MELLITUS WITHOUT COMPLICATIONS (5) HLD (hyperlipidemia) Code(s): E78.5 - HYPERLIPIDEMIA, UNSPECIFIED (6) HTN (hypertension) Code(s): I10 - ESSENTIAL (PRIMARY) HYPERTENSION Assessment/Plan Iv abtx IV steroids Pulmonary consult is appreciated ID consult Ran MAGUIRE labs.
[2019-09-30] MEDS: ATORVASTATIN CA 20 MG TABLET (FP) PO SCH (21:40)
[2019-09-30] MEDS ORDERED: SODIUM POLYSTYRENE SULFONATE 15 GM/60 ML BOTTLE PO ONE (23:00)
--- NOTE | 2019-10-01 00:41 | CONS ---
DATE OF CONSULTATION: INFECTIOUS DISEASE CONSULTATION HISTORY OF PRESENT ILLNESS: The patient is a 79-year-old female who was evaluated for pneumonia. The patient is a 79-year-old female with a history of oxygen-dependent COPD. She was admitted to the hospital on September 29, 2019, with worsening shortness of breath, cough productive of brownish sputum, pleuritic-type chest pain and chills. She was evaluated in the hospital where chest x-ray showed increased markings right base with nodular infiltrates, which was not present on the her chest x-ray 2 weeks ago. Patient has had multiple recent hospitalizations. She reports being recently discharged from [facility] after an acute exacerbation of COPD complicated by gastrointestinal bleeding of unclear source. At the present time, she is awake and alert. She reports improvement after receiving intravenous corticosteroids and antibiotics. She denies any ill contacts. She has been recently hospitalized. No recent travel. She received influenza vaccine but was unsure whether or not she received pneumococcal vaccine. PAST MEDICAL HISTORY: Positive for oxygen dependent COPD, hypertension, diabetes mellitus, coronary artery disease, CVA, history of biliary sepsis status post ERCP. PAST SURGICAL HISTORY: Status post coronary artery stent, appendectomy, tubal ligation, cholecystectomy. ALLERGIES: No known allergies. LABORATORY DATA: White count 2.7, hematocrit 30.2, platelets 308, creatinine 1.4. Urinalysis: 1 white cell. Influenza swab negative. SOCIAL HISTORY: Lives at home. She is recently . Positive history of tobacco use, stopped approximately 5 to 6 years ago. PHYSICAL EXAMINATION: General: On exam, she is awake and alert, supine in bed, in no acute distress. Vital signs: Temperature 97.6, blood pressure 106/40, pulse 62 regular, respirations 20 per minute. HEENT: Sclerae anicteric. Cardiovascular: Heart sounds S1, S2. Lungs: Rales at the left base. Decreased breath sounds right base. Abdomen: Soft, nontender. Extremities: Negative for edema. Negative Homans sign. IMPRESSION: 1. Right lower lobe pneumonia. 2. Acute exacerbation chronic obstructive pulmonary disease. 3. Azotemia. Continue empiric coverage with Zithromax and ceftriaxone. May need broader coverage in light of recent hospitalizations. Await sputum culture, urine legionella and pneumococcal antigens. Continue inhaled bronchodilators and intravenous corticosteroids. Thank you for the kind referral. RADHAEladio [id number]
[2019-10-01] MEDS: methylPREDNISolone NA SUCC 40 MG/1 ML VIAL IVPUSH SCH ×3 (01:54→17:12)
[2019-10-01] MEDS: INSULIN SLIDING SCALE (NOVOLOG) 1 VIAL SQ SCH ×3 (06:05→21:48)
[2019-10-01] MEDS: metFORMIN HCL 500 MG TABLET (FP) PO SCH ×2 (06:05→15:43)
[2019-10-01] MEDS: ALBUTEROL SO4 2.5/IPRATROPIUM 0.5 INH SOL 3 ML VIAL.NEB. NEB SCH ×3 (07:55→21:15)
[2019-10-01 07:59] LABS: BASO % 0.1 % (0-2.0); HEMATOCRIT 29.1 % (32.4-45.2); HEMOGLOBIN 9.4 GM/dL (10.7-15.3); LYMPH % 3.1 % (8-40); MCH 29.5 pg (25.7-33.7); MCHC 32.2 g/dl (32.0-36.0); MEAN CELL VOLUME 91.5 fl (80-96); MEAN PLT VOLUME 8.2 fl (7.5-11.1); MONO % 2.3 % (3.8-10.2); NEUT % 94.5 % (42.8-82.8); PLATELET COUNT 349 K/MM3 (134-434); RBC 3.18 M/mm3 (3.60-5.2); WHITE BLOOD COUNT 10.8 K/mm3 (4.0-10.0)
[2019-10-01 08:29] LABS: ALBUMIN 2.8 g/dl (3.4-5.0); BILIRUBIN,TOTAL 0.1 mg/dL (0.2-1); BLOOD UREA NITROGEN 73.2 mg/dL (7-18); CALCIUM 8.6 mg/dL (8.5-10.1); CREATININE 1.9 mg/dL (0.55-1.3); POTASSIUM 5.9 mmol/L (3.5-5.1); TOT PROT 6.4 g/dl (6.4-8.2)
[2019-10-01] MEDS ORDERED: DEXTROSE 5%-WATER - 50 ML IVPB ONE (09:16)
[2019-10-01] MEDS ORDERED: cefTRIAXone SODIUM 1 GM VIAL ONE (09:16)
[2019-10-01] MEDS: CEFTRIAXONE 1 GM in DEXTROSE 5%-WATER - 50 ML IVPB SCH (09:22)
[2019-10-01] MEDS: VALSARTAN 160 MG TABLET (UD) PO SCH (09:23)
[2019-10-01] MEDS: metoPROLOL SUCCINATE 25 MG TAB.SR.24H (FP) PO SCH ×2 (09:23→21:25)
[2019-10-01] MEDS: DICYCLOMINE HCL 10 MG CAPSULE PO SCH ×2 (09:23→21:26)
[2019-10-01] MEDS: PANTOPRAZOLE 40 MG TABLET PO SCH ×2 (09:23→21:25)
[2019-10-01] MEDS: FERROUS SO4 325 MG TABLET (FP) PO SCH (09:23)
[2019-10-01] MEDS: ASPIRIN 81 MG CHEWABLE TABLETS PO SCH (09:23)
[2019-10-01] MEDS: PIOGLITAZONE HCL 15 MG TABLET PO SCH (09:24)
[2019-10-01] MEDS: BUDESONIDE/FORMETEROL FUMARATE 80/4.5 mcg INHALER IH SCH ×2 (09:24→21:26)
[2019-10-01 09:57] LABS: ANISOCYTOSIS 0; MACROCYTOSIS 0; PLATELET ESTIMATE NORMAL
[2019-10-01] MEDS: AZITHROMYCIN IVPB 250 MG in DEXTROSE 5%-WATER - 250 ML IVPB SCH (11:09)
[2019-10-01] MEDS ORDERED: VALSARTAN 80 MG TABLET (UD) PO SCH (13:34)
--- NOTE | 2019-10-01 13:36 | PN ---
Progress Note, Physician History of Present Illness: PULMONARY FEELING BETTER,SOB IMPROVING,LESS CONGESTED - Current Medication List Current Medications: Active Medications Albuterol Sulfate (Ventolin Hfa Inhaler -) 2 puff IH Q6H PRN PRN Reason: SHORT OF BREATH/WHEEZING Albuterol/Ipratropium (Duoneb -) 1 amp NEB RTID [facility] Last Admin: 10/01/19 07:55 Dose: 1 amp Aspirin (Asa -) 81 mg PO DAILY [facility] Last Admin: 10/01/19 09:23 Dose: 81 mg Atorvastatin Calcium (Lipitor -) 20 mg PO HS [facility] Last Admin: 09/30/19 21:40 Dose: 20 mg Budesonide/Formoterol Fumarate (Symbicort 80/4.5mcg -) 2 puff IH BID [facility] Last Admin: 10/01/19 09:24 Dose: 2 puff Dicyclomine HCl (Bentyl -) 10 mg PO BID [facility] Last Admin: 10/01/19 09:23 Dose: 10 mg Ferrous Sulfate (Feosol -) 325 mg PO DAILY [facility] Last Admin: 10/01/19 09:23 Dose: 325 mg Glipizide (Glucotrol -) 2.5 mg PO ONCE ONE Stop: 10/01/19 13:27 Ceftriaxone Sodium 1 gm/ (Dextrose) 50 mls @ 100 mls/hr IVPB DAILY [facility]; Protocol Last Admin: 10/01/19 09:22 Dose: 100 mls/hr Azithromycin 250 mg/ Dextrose 250 mls @ 250 mls/hr IVPB DAILY [facility] Last Admin: 10/01/19 11:09 Dose: 250 mls/hr Insulin Aspart (Novolog Vial Sliding Scale -) 1 vial SQ BIDAC [facility] [place]; Protocol Last Admin: 10/01/19 06:05 Dose: 10 unit Metformin HCl (Glucophage -) 1,000 mg PO BIDAC [facility] [place] Last Admin: 10/01/19 06:05 Dose: 1,000 mg Methylprednisolone Sodium Succinate (Solu-Medrol -) 40 mg IVPUSH Q8H-IV [facility] [place] Last Admin: 10/01/19 09:23 Dose: 40 mg Metoprolol Succinate (Toprol Xl -) 25 mg PO BID [facility] [place] Last Admin: 10/01/19 09:23 Dose: 25 mg Non-Formulary Medication (Brinzolamide) 5 ml OP TID [facility] Pantoprazole Sodium (Protonix -) 40 mg PO BID [facility] Last Admin: 10/01/19 09:23 Dose: 40 mg Pioglitazone HCl (Actos -) 15 mg PO DAILY [facility] Last Admin: 10/01/19 09:24 Dose: 15 mg Sitagliptin Phosphate (Januvia -) 100 mg PO DAILY [facility] Last Admin: 10/01/19 09:23 Dose: 100 mg Sodium Polystyrene Sulfonate (Kayexalate -) 30 gm PO ONCE ONE Stop: 10/01/19 13:32 Valsartan (Diovan -) 80 mg PO DAILY [facility] [place] - Objective Vital Signs: Vital Signs Temperature 97.6 F 10/01/19 06:00 Pulse Rate 76 10/01/19 06:00 Respiratory Rate 20 10/01/19 06:00 Blood Pressure 129/57 L 10/01/19 06:00 O2 Sat by Pulse Oximetry (%) 92 L 09/30/19 21:00 Constitutional: Yes: Well Nourished, Calm Eyes: Yes: WNL HENT: Yes: WNL Neck: Yes: WNL Cardiovascular: Yes: Regular Rate and Rhythm, S1, S2 Respiratory: Yes: Rhonchi (SCATTERED ACE WHEEZES AND RHONCHI), Wheezes Gastrointestinal: Yes: Normal Bowel Sounds, Soft Extremities: Yes: WNL Edema: No Labs: CBC, BMP 10/01/19 06:50 10/01/19 06:50 Assessment/Plan Problem List - Problems (1) Pneumonia Code(s): J18.9 - PNEUMONIA, UNSPECIFIED ORGANISM Qualifiers: Pneumonia type: due to unspecified organism Laterality: right Lung location: lower lobe of lung Qualified Code(s): J18.9 - Pneumonia, unspecified organism (2) Anemia Code(s): D64.9 - ANEMIA, UNSPECIFIED Qualifiers: Anemia type: unspecified type Qualified Code(s): D64.9 - Anemia, unspecified (3) Chronic renal insufficiency Code(s): N18.9 - CHRONIC KIDNEY DISEASE, UNSPECIFIED (4) MCDANIEL (dyspnea on exertion) Code(s): R06.09 - OTHER FORMS OF DYSPNEA (5) Presence of stent in coronary artery in patient with coronary artery disease Code(s): I25.10 - ATHSCL HEART DISEASE OF [place] CORONARY ARTERY W/O ANG PCTRS; Z95.5 - PRESENCE OF CORONARY ANGIOPLASTY IMPLANT AND GRAFT (6) Retinopathy due to secondary diabetes Code(s): E13.319 - OTH DIABETES W UNSP DIABETIC RETINOPATHY W/O MACULAR EDEMA (7) SOB (shortness of breath) Code(s): R06.02 - SHORTNESS OF BREATH (8) CAD (coronary artery disease) Code(s): I25.10 - ATHSCL HEART DISEASE OF [place] CORONARY ARTERY W/O ANG PCTRS (9) COPD (chronic obstructive pulmonary disease) Code(s): J44.9 - CHRONIC OBSTRUCTIVE PULMONARY DISEASE, UNSPECIFIED (10) Diabetes mellitus Code(s): E11.9 - TYPE 2 DIABETES MELLITUS WITHOUT COMPLICATIONS (11) HLD (hyperlipidemia) Code(s): E78.5 - HYPERLIPIDEMIA, UNSPECIFIED (12) HTN (hypertension) Code(s): I10 - ESSENTIAL (PRIMARY) HYPERTENSION HTPERKALEMIA Assessment/Plan Rocephin / Zithromax BD TX standing and PRN Medrol same dose No smoking was counseled monitor lytes,renal function,k consider Renal evaluation Ran ALMAGUER
[2019-10-01] MEDS ORDERED: SODIUM POLYSTYRENE SULFONATE 15 GM/60 ML BOTTLE PO ONE ×2 (13:45→17:16)
[2019-10-01] MEDS ORDERED: glipiZIDE 5 MG TABLET (FP) PO ONE (14:00)
[2019-10-01] MEDS ORDERED: SODIUM CHLORIDE 1,000 ML IV SCH (17:30)
[2019-10-01] MEDS: ATORVASTATIN CA 20 MG TABLET (FP) PO SCH (21:25)
[2019-10-01] MEDS: INSULIN (LEVEMIR) 100 UNITS/ML UNITS SQ SCH (21:25)
[2019-10-01] MEDS ORDERED: INSULIN (LEVEMIR) 100 UNITS/ML UNITS SQ ONE (21:40)
[2019-10-01 21:51] LABS: BLOOD UREA NITROGEN 78.7 mg/dL (7-18); CALCIUM 8.5 mg/dL (8.5-10.1); CREATININE 1.7 mg/dL (0.55-1.3); POTASSIUM 5.1 mmol/L (3.5-5.1)
[2019-10-01] MEDS ORDERED: INSULIN (NOVOLOG) ASPART 100 UNITS/ML 10ML VIAL ONE (21:51)
--- NOTE | 2019-10-01 22:26 | PN ---
Progress Note, Physician History of Present Illness: Pt breathing is slightly getting better. Pt w/o CP, palpitations, abd pain, nausea, vomiting. Pt with decreased PO intake, food and fluids; she states that is not hungry, eating just the soup; pt also not drinking fluids. Pt is c/o hands tremor - Current Medication List Current Medications: Active Medications Albuterol Sulfate (Ventolin Hfa Inhaler -) 2 puff IH Q6H PRN PRN Reason: SHORT OF BREATH/WHEEZING Albuterol/Ipratropium (Duoneb -) 1 amp NEB RTID [facility] Last Admin: 10/01/19 21:15 Dose: 1 amp Aspirin (Asa -) 81 mg PO DAILY [facility] Last Admin: 10/01/19 09:23 Dose: 81 mg Atorvastatin Calcium (Lipitor -) 20 mg PO HS [facility] Last Admin: 10/01/19 21:25 Dose: 20 mg Budesonide/Formoterol Fumarate (Symbicort 80/4.5mcg -) 2 puff IH BID [facility] Last Admin: 10/01/19 21:26 Dose: 2 puff Dicyclomine HCl (Bentyl -) 10 mg PO BID [facility] Last Admin: 10/01/19 21:26 Dose: 10 mg Ferrous Sulfate (Feosol -) 325 mg PO DAILY [facility] Last Admin: 10/01/19 09:23 Dose: 325 mg Ceftriaxone Sodium 1 gm/ (Dextrose) 50 mls @ 100 mls/hr IVPB DAILY [facility]; Protocol Last Admin: 10/01/19 09:22 Dose: 100 mls/hr Azithromycin 250 mg/ Dextrose 250 mls @ 250 mls/hr IVPB DAILY [facility] Last Admin: 10/01/19 11:09 Dose: 250 mls/hr Sodium Chloride (Normal Saline -) 1,000 mls @ 50 mls/hr IV ASDIR [facility] Stop: 10/02/19 17:24 Last Admin: 10/01/19 17:45 Dose: 50 mls/hr Insulin Aspart (Novolog Vial Sliding Scale -) 1 vial SQ ACHS [facility]; Protocol Last Admin: 10/01/19 21:48 Dose: 6 units Insulin Detemir (Levemir Vial) 5 units SQ HS [facility] Last Admin: 10/01/19 21:25 Dose: 5 unit Methylprednisolone Sodium Succinate (Solu-Medrol -) 40 mg IVPUSH Q8H-IV [facility] Last Admin: 10/01/19 17:12 Dose: 40 mg Metoprolol Succinate (Toprol Xl -) 25 mg PO BID [facility] Last Admin: 10/01/19 21:25 Dose: 25 mg Non-Formulary Medication (Brinzolamide) 5 ml OP TID [facility] Pantoprazole Sodium (Protonix -) 40 mg PO BID [facility] Last Admin: 10/01/19 21:25 Dose: 40 mg Pioglitazone HCl (Actos -) 15 mg PO DAILY [facility] Last Admin: 10/01/19 09:24 Dose: 15 mg Sitagliptin Phosphate (Januvia -) 25 mg PO ACBK [facility] - Objective Vital Signs: Vital Signs Temperature 98.8 F 10/01/19 18:00 Pulse Rate 91 H 10/01/19 18:00 Respiratory Rate 10/01/19 18:00 Blood Pressure 124/68 10/01/19 18:00 O2 Sat by Pulse Oximetry (%) 95 10/01/19 09:00 Constitutional: Yes: No Distress, Calm Cardiovascular: Yes: Regular Rate and Rhythm, S1, S2 Respiratory: Yes: Regular, Rhonchi Gastrointestinal: Yes: Normal Bowel Sounds, Soft. No: Tenderness Edema: No Neurological: Yes: Alert, Oriented, Other (minimal bilateral resting tremor of both hands.) Labs: CBC, BMP 10/01/19 06:50 10/01/19 20:20 Problem List - Problems (1) Pneumonia Code(s): J18.9 - PNEUMONIA, UNSPECIFIED ORGANISM Qualifiers: Pneumonia type: due to unspecified organism Laterality: right Lung location: lower lobe of lung Qualified Code(s): J18.9 - Pneumonia, unspecified organism (2) COPD (chronic obstructive pulmonary disease) Code(s): J44.9 - CHRONIC OBSTRUCTIVE PULMONARY DISEASE, UNSPECIFIED (3) CAD (coronary artery disease) Code(s): I25.10 - ATHSCL HEART DISEASE OF [place] CORONARY ARTERY W/O ANG PCTRS (4) Diabetes mellitus Code(s): E11.9 - TYPE 2 DIABETES MELLITUS WITHOUT COMPLICATIONS (5) HLD (hyperlipidemia) Code(s): E78.5 - HYPERLIPIDEMIA, UNSPECIFIED (6) HTN (hypertension) Code(s): I10 - ESSENTIAL (PRIMARY) HYPERTENSION (7) RANDY (acute kidney injury) Code(s): N17.9 - ACUTE KIDNEY FAILURE, UNSPECIFIED (8) Tremor of both hands Assessment/Plan: to monitor. if not resolving to call Neuro, Dr Anderson Code(s): R25.1 - TREMOR, UNSPECIFIED Assessment/Plan pt was Started on IVF Losartan was DC'ed for now pt was Started on Levemir IV abtx IV steroids, decreased to Q8H Pulmonary, ID consults are appreciated Renal consult fro RANDY Consider Neuro consult for hand tremor AM labs.
--- NOTE | 2019-10-01 23:37 | CON.NEP ---
Consult Consult Specialty:: nephrology Referred by:: dr kendrick Reason for Consultation:: randy - History of Present Illness Chief Complaint: sob History of Present Illness: presented to ER increasing productive cough and shortness of breath x 2 days No recent travel history no sick contacts. No hemoptysis or night sweats. CXR show RLL infiltrate. 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 No: O2 Dependent, Pneumonia, Previously Intubated, Pulmonary Embolus, Pulmonary Fibrosis, Sleep Apnea Gastrointestinal: Yes: Constipation, Hiatal Hernia Renal/: Yes: Renal Inusuff ...: No Psych: Yes: Depression Endocrine: Yes: Diabetes Mellitus (with diabetic retinopathy ( had interventions ) and nephropathy ) - Past Surgical History Past Surgical History: Yes: Appendectomy, Tubal Ligation, Colonoscopy, Upper Endoscopy, Breast Biopsy, Cholecystectomy - Alcohol/Substance Use Hx Alcohol Use: No History of Substance Use: reports: None - Smoking History Smoking history: Former smoker Have you smoked in the past 12 months: No Aproximately how many cigarettes per day: 4 If you are a former smoker, when did you quit?: 6 years ago - Social History Usual Living Arrangement: With Spouse ADL: Independent 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 History of Recent Travel: No Home Medications - Allergies Allergies/Adverse Reactions: Allergies Allergy/AdvReac Type Severity Reaction Status Date / Time No Known Allergies Allergy Verified 09/29/19 12:56 - Home Medications Home Medications: Ambulatory Orders Aspirin [ASA -] 81 mg PO DAILY 04/12/17 Metoprolol Succinate [Toprol XL -] 25 mg PO BID 04/12/17 Olmesartan Medoxomil [Benicar -] 20 mg PO DAILY 04/12/17 Albuterol Sulfate Inhaler - [Ventolin HFA Inhaler -] 1 - 2 inh PO Q4H PRN Pioglitazone HCl 15 mg PO DAILY 04/28/18 Ferrous Sulfate [Feosol] 325 mg PO DAILY 02/15/19 Metformin HCl [Glucophage] 1,000 mg PO BID 03/24/19 Brinzolamide [Azopt (Non-Formulary)] 5 ml OP TID 09/29/19 Budesonide/Formeterol Fumarate [SYMBICORT 80/4.5mcg -] 2 inh PO BID 09/29/19 Dicyclomine HCl 10 mg PO BID 09/29/19 Pantoprazole Sodium 40 mg PO BID 09/29/19 Simvastatin 40 mg PO DAILY 09/29/19 Sitagliptin Phosphate [Januvia] 100 mg PO DAILY 09/29/19 Nephrology Consult - Height Height: 5 ft 2 in - Weight Weight: 125 lb 14.4 oz - BMI Body Mass Index (BMI): 23.0 - Lab Results CBC,BMP: CBC, BMP 10/01/19 06:50 10/01/19 20:20 Anion Gap: Anion Gap Anion Gap 8 MMOL/L (8-16) 10/01/19 20:20 - Physical Examination Vital Signs: Vital Signs Temperature 97.9 F 10/01/19 22:38 Pulse Rate 92 H 10/01/19 22:38 Respiratory Rate 20 10/01/19 22:38 Blood Pressure 149/70 10/01/19 22:38 O2 Sat by Pulse Oximetry (%) 96 10/01/19 22:44 Assessment/Plan 09/29/19 10/01/19 10/01/19 12:33 06:50 06:50 WBC 10.8 H Hgb 9.4 L Hct 29.1 L Sodium Potassium BUN 73.2 H Creatinine 1.9 H Ur Specific [place] 1.019 Urine Protein 2+ H Urine Glucose (UA) 3+ H 10/01/19 20:20 WBC Hgb Hct Sodium 135 L Potassium 5.1 BUN 78.7 H Creatinine 1.7 H Ur Specific [place] Urine Protein Urine Glucose (UA) RANDY ON CKD IN SETTING OF ACUTE ILLNESS MAY BE PRERENAL DUE TO INFLAMMATION AND FLUID DEFICIT AND LOW BP'S DOCUMENTED HERE DURING ILLNESS sHE HAS PROTEINURIA 2/2 ACUTE ILLNESS, LABS REVIEWED- SHE HAS HAD INTERMITTENT PROTEINURIA IN THE PAST COPD ACUTE EXACERBATION ACUTE LUNG INFECTION RLL PNA PMHX CVA, CAD, HTN, HPL, DM, CKD RECOMM- HYDRATE CAUTIOUSLY 1-2 LITERS PER DAY MONITOR URINE OUTUT DAILY WEIGHTS IF POSSIBLE MONITOR LABS AND U/A TO FOLLOW PROTEINURIA OR ACTIVE URINE
[2019-10-02] MEDS: methylPREDNISolone NA SUCC 40 MG/1 ML VIAL IVPUSH SCH ×3 (02:37→17:21)
[2019-10-02 05:40] LABS: EPI CELLS 5.7 /HPF (0-5/HPF); HYALINE CASTS 3 /lpf (0-8); URINE APPEARANCE CLEAR; URINE BACTERIA 4.8 /hpf (NEGATIVE); URINE BILIRUBIN NEGATIVE (NEGATIVE); URINE COLOR YELLOW; URINE GLUCOSE (UA) 2+ (NEGATIVE); URINE KETONE NEGATIVE (NEGATIVE); URINE LEUK ESTERASE NEGATIVE (NEGATIVE); URINE NITRITE NEGATIVE (NEGATIVE); URINE PROTEIN 1+ (NEGATIVE); URINE RBC 3 /hpf (0-4); URINE UROBILINOGEN 0.2 mg/dL (0.2-1.0); URINE WBC 1 /hpf (0-5)
[2019-10-02] MEDS: INSULIN SLIDING SCALE (NOVOLOG) 1 VIAL SQ SCH ×4 (07:06→21:59)
[2019-10-02] MEDS: ALBUTEROL SO4 2.5/IPRATROPIUM 0.5 INH SOL 3 ML VIAL.NEB. NEB SCH ×3 (07:35→20:40)
[2019-10-02 08:45] LABS: BASO % 0.1 % (0-2.0); HEMATOCRIT 29.4 % (32.4-45.2); HEMOGLOBIN 9.6 GM/dL (10.7-15.3); LYMPH % 4.2 % (8-40); MCH 29.2 pg (25.7-33.7); MCHC 32.6 g/dl (32.0-36.0); MEAN CELL VOLUME 89.5 fl (80-96); MEAN PLT VOLUME 7.8 fl (7.5-11.1); MONO % 2.9 % (3.8-10.2); NEUT % 92.8 % (42.8-82.8); PLATELET COUNT 375 K/MM3 (134-434); RBC 3.28 M/mm3 (3.60-5.2); RDW 15.8 % (11.6-15.6)
[2019-10-02 09:25] LABS: ALBUMIN 2.9 g/dl (3.4-5.0); BILIRUBIN,TOTAL 0.3 mg/dL (0.2-1); BLOOD UREA NITROGEN 76.6 mg/dL (7-18); CALCIUM 8.7 mg/dL (8.5-10.1); CREATININE 1.4 mg/dL (0.55-1.3); POTASSIUM 4.8 mmol/L (3.5-5.1); TOT PROT 6.2 g/dl (6.4-8.2)
[2019-10-02] MEDS ORDERED: cefTRIAXone SODIUM 1 GM VIAL ONE (09:43)
[2019-10-02] MEDS ORDERED: PT OWN MED DRAWER 7, Y5N ONE (09:43)
[2019-10-02] MEDS ORDERED: DEXTROSE 5%-WATER - 50 ML IVPB ONE (09:43)
[2019-10-02] MEDS: PANTOPRAZOLE 40 MG TABLET PO SCH ×2 (09:52→21:58)
[2019-10-02] MEDS: FERROUS SO4 325 MG TABLET (FP) PO SCH (09:52)
[2019-10-02] MEDS: ASPIRIN 81 MG CHEWABLE TABLETS PO SCH (09:52)
[2019-10-02] MEDS: DICYCLOMINE HCL 10 MG CAPSULE PO SCH ×2 (09:57→21:58)
[2019-10-02] MEDS: PIOGLITAZONE HCL 15 MG TABLET PO SCH (10:00)
[2019-10-02] MEDS: CEFTRIAXONE 1 GM in DEXTROSE 5%-WATER - 50 ML IVPB SCH (10:02)
--- NOTE | 2019-10-02 10:04 | PN ---
Progress Note, Physician Chief Complaint: in bed NAD VSS afebrile no c/o feels better had some diarrhea after po kayexalate; K better - Current Medication List Current Medications: Active Medications Albuterol Sulfate (Ventolin Hfa Inhaler -) 2 puff IH Q6H PRN PRN Reason: SHORT OF BREATH/WHEEZING Albuterol/Ipratropium (Duoneb -) 1 amp NEB RTID [facility] Last Admin: 10/02/19 07:35 Dose: 1 amp Aspirin (Asa -) 81 mg PO DAILY [facility] Last Admin: 10/01/19 09:23 Dose: 81 mg Atorvastatin Calcium (Lipitor -) 20 mg PO HS [facility] Last Admin: 10/01/19 21:25 Dose: 20 mg Budesonide/Formoterol Fumarate (Symbicort 80/4.5mcg -) 2 puff IH BID [facility] Last Admin: 10/01/19 21:26 Dose: 2 puff Dicyclomine HCl (Bentyl -) 10 mg PO BID [facility] Last Admin: 10/01/19 21:26 Dose: 10 mg Ferrous Sulfate (Feosol -) 325 mg PO DAILY [facility] Last Admin: 10/01/19 09:23 Dose: 325 mg Ceftriaxone Sodium 1 gm/ (Dextrose) 50 mls @ 100 mls/hr IVPB DAILY [facility]; Protocol Last Admin: 10/01/19 09:22 Dose: 100 mls/hr Azithromycin 250 mg/ Dextrose 250 mls @ 250 mls/hr IVPB DAILY [facility] Last Admin: 10/01/19 11:09 Dose: 250 mls/hr Sodium Chloride (Normal Saline -) 1,000 mls @ 50 mls/hr IV ASDIR [facility] Stop: 10/02/19 17:24 Last Admin: 10/01/19 17:45 Dose: 50 mls/hr Insulin Aspart (Novolog Vial Sliding Scale -) 1 vial SQ ACHS [facility]; Protocol Last Admin: 10/02/19 07:06 Dose: 2 units Insulin Detemir (Levemir Vial) 5 units SQ HS [facility] Last Admin: 10/01/19 21:25 Dose: 5 unit Methylprednisolone Sodium Succinate (Solu-Medrol -) 40 mg IVPUSH Q8H-IV [facility] Last Admin: 10/02/19 02:37 Dose: 40 mg Metoprolol Succinate (Toprol Xl -) 25 mg PO BID [facility] Last Admin: 10/01/19 21:25 Dose: 25 mg Non-Formulary Medication (Brinzolamide) 5 ml OP TID [facility] Pantoprazole Sodium (Protonix -) 40 mg PO BID [facility] Last Admin: 10/01/19 21:25 Dose: 40 mg Pioglitazone HCl (Actos -) 15 mg PO DAILY [facility] Last Admin: 10/01/19 09:24 Dose: 15 mg Sitagliptin Phosphate (Januvia -) 25 mg PO ACBK [facility] Last Admin: 10/02/19 07:07 Dose: 25 mg - Objective Vital Signs: Vital Signs Temperature 97.7 F 10/02/19 07:02 Pulse Rate 61 10/02/19 07:02 Respiratory Rate 20 10/02/19 07:02 Blood Pressure 137/64 10/02/19 07:02 O2 Sat by Pulse Oximetry (%) 100 10/02/19 07:03 Constitutional: Yes: No Distress, Calm Eyes: Yes: Conjunctiva Clear HENT: Yes: Atraumatic Neck: Yes: Supple Cardiovascular: Yes: Regular Rate and Rhythm Respiratory: Yes: CTA Bilaterally Gastrointestinal: Yes: Soft. No: Tenderness Genitourinary: No: Hematuria Musculoskeletal: No: Joint Stiffness, Joint Swelling Extremities: No: Cold, Cool Edema: No Integumentary: No: Rash, Venous Stasis Changes Neurological: Yes: WNL, Alert, Oriented ...Motor Strength: WNL Psychiatric: Yes: WNL, Alert, Oriented. No: Agitated, Suicidal Ideation Labs: CBC, BMP 10/02/19 08:22 10/02/19 08:22 - ....Imaging Other: Report Reviewed Assessment/Plan The patient is a 79 year old female, with PMH of DM, HTN, COPD (Home O2), CVA, CAD, CT s/p stents, SBO, asthma, symptomatic anemia, and biliary sepsis s/p ERSP , who presents to the emergency department for evaluation of 1 week of worsening SOB and productive cough, brownish in color with associated diffuse pleuritic chest pain and intermittent chills. Dx with PNA; also anemia; developed ARF and hyperK; consults appreciated; IV ATB; s/p kayexalate f/u labs, cultures cont meds; falls DVT pfx d/w pt and staff
[2019-10-02] MEDS: BUDESONIDE/FORMETEROL FUMARATE 80/4.5 mcg INHALER IH SCH ×2 (10:10→21:59)
[2019-10-02] MEDS: metoPROLOL SUCCINATE 25 MG TAB.SR.24H (FP) PO SCH ×2 (10:27→21:58)
[2019-10-02] MEDS: AZITHROMYCIN IVPB 250 MG in DEXTROSE 5%-WATER - 250 ML IVPB SCH (11:09)
[2019-10-02 11:18] LABS: ANISOCYTOSIS 1+; MACROCYTOSIS 0; OVALOCYTE 1+; PLATELET ESTIMATE NORMAL; TEAR DROP CELLS 1+
--- NOTE | 2019-10-02 11:49 | PN ---
Progress Note, Physician History of Present Illness: pulmonary alert,feeling better ,sob improving - Current Medication List Current Medications: Active Medications Albuterol Sulfate (Ventolin Hfa Inhaler -) 2 puff IH Q6H PRN PRN Reason: SHORT OF BREATH/WHEEZING Albuterol/Ipratropium (Duoneb -) 1 amp NEB RTID [facility] Last Admin: 10/02/19 07:35 Dose: 1 amp Aspirin (Asa -) 81 mg PO DAILY [facility] Last Admin: 10/02/19 09:52 Dose: 81 mg Atorvastatin Calcium (Lipitor -) 20 mg PO HS [facility] Last Admin: 10/01/19 21:25 Dose: 20 mg Budesonide/Formoterol Fumarate (Symbicort 80/4.5mcg -) 2 puff IH BID [facility] Last Admin: 10/02/19 10:10 Dose: 2 puff Dicyclomine HCl (Bentyl -) 10 mg PO BID [facility] Last Admin: 10/02/19 09:57 Dose: 10 mg Ferrous Sulfate (Feosol -) 325 mg PO DAILY [facility] Last Admin: 10/02/19 09:52 Dose: 325 mg Ceftriaxone Sodium 1 gm/ (Dextrose) 50 mls @ 100 mls/hr IVPB DAILY [facility]; Protocol Last Admin: 10/02/19 10:02 Dose: 100 mls/hr Azithromycin 250 mg/ Dextrose 250 mls @ 250 mls/hr IVPB DAILY [facility] Last Admin: 10/02/19 11:09 Dose: 250 mls/hr Sodium Chloride (Normal Saline -) 1,000 mls @ 50 mls/hr IV ASDIR [facility] Stop: 10/02/19 17:24 Last Admin: 10/01/19 17:45 Dose: 50 mls/hr Insulin Aspart (Novolog Vial Sliding Scale -) 1 vial SQ ACHS [facility]; Protocol Last Admin: 10/02/19 07:06 Dose: 2 units Insulin Detemir (Levemir Vial) 5 units SQ [facility] Last Admin: 10/01/19 21:25 Dose: 5 unit Methylprednisolone Sodium Succinate (Solu-Medrol -) 40 mg IVPUSH Q8H-IV [facility] Last Admin: 10/02/19 09:52 Dose: 40 mg Metoprolol Succinate (Toprol Xl -) 25 mg PO BID [facility] Last Admin: 10/02/19 10:27 Dose: 25 mg Non-Formulary Medication (Brinzolamide) 5 ml OP TID [facility] Pantoprazole Sodium (Protonix -) 40 mg PO BID [facility] Last Admin: 10/02/19 09:52 Dose: 40 mg Pioglitazone HCl (Actos -) 15 mg PO DAILY [facility] Last Admin: 10/02/19 10:00 Dose: 15 mg Sitagliptin Phosphate (Januvia -) 25 mg PO ACBK [facility] Last Admin: 10/02/19 07:07 Dose: 25 mg - Objective Vital Signs: Vital Signs Temperature 98 F 10/02/19 10:13 Pulse Rate 70 10/02/19 10:13 Respiratory Rate 20 10/02/19 10:13 Blood Pressure 130/58 L 10/02/19 10:13 O2 Sat by Pulse Oximetry (%) 100 10/02/19 07:03 Constitutional: Yes: Well Nourished, Calm Eyes: Yes: WNL HENT: Yes: WNL Neck: Yes: WNL Cardiovascular: Yes: Regular Rate and Rhythm, S1, S2 Respiratory: Yes: Wheezes (few scattered wheezes) Gastrointestinal: Yes: Normal Bowel Sounds, Soft Extremities: Yes: WNL Edema: No Labs: CBC, BMP 10/02/19 08:22 10/02/19 08:22 Assessment/Plan Problem List - Problems (1) Pneumonia Code(s): J18.9 - PNEUMONIA, UNSPECIFIED ORGANISM Qualifiers: Pneumonia type: due to unspecified organism Laterality: right Lung location: lower lobe of lung Qualified Code(s): J18.9 - Pneumonia, unspecified organism (2) Anemia Code(s): D64.9 - ANEMIA, UNSPECIFIED Qualifiers: Anemia type: unspecified type Qualified Code(s): D64.9 - Anemia, unspecified (3) Chronic renal insufficiency Code(s): N18.9 - CHRONIC KIDNEY DISEASE, UNSPECIFIED (4) MCDANIEL (dyspnea on exertion) Code(s): R06.09 - OTHER FORMS OF DYSPNEA (5) Presence of stent in coronary artery in patient with coronary artery disease Code(s): I25.10 - ATHSCL HEART DISEASE OF [place] CORONARY ARTERY W/O ANG PCTRS; Z95.5 - PRESENCE OF CORONARY ANGIOPLASTY IMPLANT AND GRAFT (6) Retinopathy due to secondary diabetes Code(s): E13.319 - OTH DIABETES W UNSP DIABETIC RETINOPATHY W/O MACULAR EDEMA (7) SOB (shortness of breath) Code(s): R06.02 - SHORTNESS OF BREATH (8) CAD (coronary artery disease) Code(s): I25.10 - ATHSCL HEART DISEASE OF [place] CORONARY ARTERY W/O ANG PCTRS (9) COPD (chronic obstructive pulmonary disease) Code(s): J44.9 - CHRONIC OBSTRUCTIVE PULMONARY DISEASE, UNSPECIFIED (10) Diabetes mellitus Code(s): E11.9 - TYPE 2 DIABETES MELLITUS WITHOUT COMPLICATIONS (11) HLD (hyperlipidemia) Code(s): E78.5 - HYPERLIPIDEMIA, UNSPECIFIED (12) HTN (hypertension) Code(s): I10 - ESSENTIAL (PRIMARY) HYPERTENSION HTPERKALEMIA CORRECTED Assessment/Plan Rocephin / Zithromax BD TX standing and PRN Medrol same dose No smoking was counseled monitor lytes,renal function,k DR ALMAGUER
--- NOTE | 2019-10-02 17:07 | CONSULT ---
Consult - text type - Consultation Consultation Note: NEUROLOGY CONSULTATION is greatly appreciated: Events reviewed, Patient examined. This 79 yo RH, M woman with h/o HTN, DM, Chol ASHD, s/p stents and COPD is admitted with Bronchitis and exacerbation of COPD. On ASA 81; Metoprolol; Olmesartan; Benicar; Albuterol; Pioglitazone; Feosol; Metformin; Azopt; SYMBICORT; Pantoprazole; Simvastatin, and Januvia. S/P CVA 4 or 5 years ago but denies residua. Walks with cane and requires O2 at home. Neuro consult now for new tremor since admission which Patient attributes to "antibiotics." GASTON: No bruits. Cor reg, s/p L TKR NEURO: MS/speech: Normal CN II-XII: Essentially normal. No head tremor. Min right lower facial asymmetry Motor: Variable, fine, sustention tremor. No drift. No cogwheeling. Areflexic in legs. Plantars silent. Coord: No FTN dystaxia Sensory: Decreased vibration feet. Romberg - Gait: Sl shuffle, Mild right circumduction. IMP: Mild, residual left cerebral dysfunction, s/p CVA Sustention tremor, probably o a Toxic-metabolic basis due to steroids and bronchodilators. SUGGEST: I have reassured patient that the tremor should slowly improve as her IV meds for COPD are tapered and D/C'ed. Continue ASA Carotid cuplex doppler if not recently performed. Check TSH, T4 Neuro F/u if tremor persists off Solumedrol, etc. Thank you very much, Pito Batista MD
[2019-10-02] MEDS: ATORVASTATIN CA 20 MG TABLET (FP) PO SCH (21:58)
[2019-10-02] MEDS: INSULIN (LEVEMIR) 100 UNITS/ML UNITS SQ SCH (21:58)
--- NOTE | 2019-10-02 23:23 | PN ---
Progress Note (short form) - Note Progress Note: RANDY ON CKD IN SETTING OF ACUTE ILLNESS MAY BE PRERENAL DUE TO INFLAMMATION AND FLUID DEFICIT AND LOW BP'S DOCUMENTED HERE DURING ILLNESS sHE HAS PROTEINURIA 2/2 ACUTE ILLNESS, LABS REVIEWED- SHE HAS HAD INTERMITTENT PROTEINURIA IN THE PAST COPD ACUTE EXACERBATION ACUTE LUNG INFECTION RLL PNA PMHX CVA, CAD, HTN, HPL, DM, CKD Current Medications Albuterol Sulfate (Ventolin Hfa Inhaler -) 2 puff IH Q6H PRN PRN Reason: SHORT OF BREATH/WHEEZING Albuterol/Ipratropium (Duoneb -) 1 amp NEB RTID [facility] Last Admin: 10/02/19 20:40 Dose: 1 amp Aspirin (Asa -) 81 mg PO DAILY [facility] Last Admin: 10/02/19 09:52 Dose: 81 mg Atorvastatin Calcium (Lipitor -) 20 mg PO HS [facility] Last Admin: 10/02/19 21:58 Dose: 20 mg Budesonide/Formoterol Fumarate (Symbicort 80/4.5mcg -) 2 puff IH BID [facility] Last Admin: 10/02/19 21:59 Dose: 2 puff Dicyclomine HCl (Bentyl -) 10 mg PO BID [facility] Last Admin: 10/02/19 21:58 Dose: 10 mg Ferrous Sulfate (Feosol -) 325 mg PO DAILY [facility] Last Admin: 10/02/19 09:52 Dose: 325 mg Ceftriaxone Sodium 1 gm/ (Dextrose) 50 mls @ 100 mls/hr IVPB DAILY [facility]; Protocol Last Admin: 10/02/19 10:02 Dose: 100 mls/hr Azithromycin 250 mg/ Dextrose 250 mls @ 250 mls/hr IVPB DAILY [facility] Last Admin: 10/02/19 11:09 Dose: 250 mls/hr Insulin Aspart (Novolog Vial Sliding Scale -) 1 vial SQ ACHS [facility]; Protocol Last Admin: 10/02/19 21:59 Dose: 10 units Insulin Detemir (Levemir Vial) 5 units SQ HS [facility] Last Admin: 10/02/19 21:58 Dose: 5 unit Methylprednisolone Sodium Succinate (Solu-Medrol -) 40 mg IVPUSH Q8H-IV [facility] Last Admin: 10/02/19 17:21 Dose: 40 mg Metoprolol Succinate (Toprol Xl -) 25 mg PO BID [facility] Last Admin: 10/02/19 21:58 Dose: 25 mg Non-Formulary Medication (Brinzolamide) 5 ml OP TID [facility] Pantoprazole Sodium (Protonix -) 40 mg PO BID [facility] Last Admin: 10/02/19 21:58 Dose: 40 mg Pioglitazone HCl (Actos -) 15 mg PO DAILY [facility] Last Admin: 10/02/19 10:00 Dose: 15 mg Sitagliptin Phosphate (Januvia -) 25 mg PO ACBK [facility] Last Admin: 10/02/19 07:07 Dose: 25 mg Last Vital Signs Temp Pulse Resp BP Pulse Ox 97.6 F 70 20 105/40 L 96 10/02/19 20:46 10/02/19 20:46 10/02/19 20:46 10/02/19 20:46 10/02/19 21:00 10/01/19 10/02/19 20:20 08:22 WBC Hgb Hct Sodium 135 L 137 Potassium 5.1 4.8 BUN 78.7 H 76.6 H Creatinine 1.7 H 1.4 H Random Glucose 165 H Albumin 2.9 L Ur Specific [place] Urine Protein Urine Glucose (UA) CBC, BMP 10/02/19 08:22 10/02/19 17:20
[2019-10-03] MEDS: methylPREDNISolone NA SUCC 40 MG/1 ML VIAL IVPUSH SCH ×3 (01:53→21:53)
[2019-10-03] MEDS: INSULIN SLIDING SCALE (NOVOLOG) 1 VIAL SQ SCH ×5 (01:57→21:52)
--- NOTE | 2019-10-03 06:42 | PN ---
Progress Note, Physician Chief Complaint: awake alert feels a littel better GLU high - will start tapering steroids - Current Medication List Current Medications: Active Medications Albuterol Sulfate (Ventolin Hfa Inhaler -) 2 puff IH Q6H PRN PRN Reason: SHORT OF BREATH/WHEEZING Albuterol/Ipratropium (Duoneb -) 1 amp NEB RTID [facility] Last Admin: 10/02/19 20:40 Dose: 1 amp Aspirin (Asa -) 81 mg PO DAILY [facility] Last Admin: 10/02/19 09:52 Dose: 81 mg Atorvastatin Calcium (Lipitor -) 20 mg PO HS [facility] Last Admin: 10/02/19 21:58 Dose: 20 mg Budesonide/Formoterol Fumarate (Symbicort 80/4.5mcg -) 2 puff IH BID [facility] Last Admin: 10/02/19 21:59 Dose: 2 puff Dicyclomine HCl (Bentyl -) 10 mg PO BID [facility] Last Admin: 10/02/19 21:58 Dose: 10 mg Ferrous Sulfate (Feosol -) 325 mg PO DAILY [facility] Last Admin: 10/02/19 09:52 Dose: 325 mg Ceftriaxone Sodium 1 gm/ (Dextrose) 50 mls @ 100 mls/hr IVPB DAILY [facility]; Protocol Last Admin: 10/02/19 10:02 Dose: 100 mls/hr Azithromycin 250 mg/ Dextrose 250 mls @ 250 mls/hr IVPB DAILY [facility] Last Admin: 10/02/19 11:09 Dose: 250 mls/hr Insulin Aspart (Novolog Vial Sliding Scale -) 1 vial SQ ACHS [facility]; Protocol Last Admin: 10/03/19 01:57 Dose: 6 units Insulin Detemir (Levemir Vial) 5 units SQ HS [facility] Last Admin: 10/02/19 21:58 Dose: 5 unit Methylprednisolone Sodium Succinate (Solu-Medrol -) 40 mg IVPUSH Q12H [facility] Metoprolol Succinate (Toprol Xl -) 25 mg PO BID [facility] Last Admin: 10/02/19 21:58 Dose: 25 mg Non-Formulary Medication (Brinzolamide) 5 ml OP TID [facility] Pantoprazole Sodium (Protonix -) 40 mg PO BID [facility] Last Admin: 10/02/19 21:58 Dose: 40 mg Pioglitazone HCl (Actos -) 15 mg PO DAILY [facility] Last Admin: 10/02/19 10:00 Dose: 15 mg Sitagliptin Phosphate (Januvia -) 25 mg PO ACBK [facility] Last Admin: 10/02/19 07:07 Dose: 25 mg - Objective Vital Signs: Vital Signs Temperature 97.5 F L 10/03/19 06:00 Pulse Rate 54 L 10/03/19 06:00 Respiratory Rate 18 10/03/19 06:00 Blood Pressure 145/57 L 10/03/19 06:00 O2 Sat by Pulse Oximetry (%) 96 10/02/19 21:00 Constitutional: Yes: No Distress, Calm Eyes: Yes: Conjunctiva Clear HENT: Yes: Atraumatic Neck: Yes: Supple Cardiovascular: Yes: Regular Rate and Rhythm Respiratory: Yes: Diminished, Rales Gastrointestinal: Yes: Soft. No: Tenderness Musculoskeletal: No: Joint Stiffness, Joint Swelling Extremities: No: Calf Tenderness, Cold, Cool, Cyanosis Edema: No Integumentary: No: Rash, Venous Stasis Changes Neurological: Yes: Alert, Oriented ...Motor Strength: WNL Psychiatric: Yes: Alert, Oriented. No: Agitated, Suicidal Ideation Labs: CBC, BMP 10/02/19 08:22 10/02/19 17:20 - ....Imaging Other: Report Reviewed Assessment/Plan The patient is a 79 year old female, with PMH of DM, HTN, COPD (Home O2), CVA, CAD, [place] s/p stents, SBO, asthma, symptomatic anemia, and biliary sepsis s/p ERSP , who presents to the emergency department for evaluation of 1 week of worsening SOB and productive cough, brownish in color with associated diffuse pleuritic chest pain and intermittent chills. Dx with PNA; also anemia; developed ARF and hyperK; consults appreciated; IV ATB; s/p kayexalate f/u labs, cultures anemia, heme and GI eval; h/o gallstones ? biliary stones - GI eval - has h/o BCD stones ERCP in the past pt said she had EGD colonoscopy at [facility] and was told she needs additional bowel studies for anemia w/u but she did not go back - advised to f/u with GI when she gets better pulmonary clifford cont meds; falls DVT pfx d/w pt and staff
[2019-10-03] MEDS: ALBUTEROL SO4 2.5/IPRATROPIUM 0.5 INH SOL 3 ML VIAL.NEB. NEB SCH ×3 (07:20→20:35)
[2019-10-03 08:31] LABS: BASO % 0.1 % (0-2.0); HEMATOCRIT 27.8 % (32.4-45.2); HEMOGLOBIN 9.1 GM/dL (10.7-15.3); LYMPH % 4.5 % (8-40); MCH 29.4 pg (25.7-33.7); MCHC 32.8 g/dl (32.0-36.0); MEAN CELL VOLUME 89.7 fl (80-96); MEAN PLT VOLUME 8.1 fl (7.5-11.1); MONO % 2.3 % (3.8-10.2); NEUT % 93.1 % (42.8-82.8); PLATELET COUNT 372 K/MM3 (134-434); RDW 15.9 % (11.6-15.6); WHITE BLOOD COUNT 7.7 K/mm3 (4.0-10.0)
[2019-10-03 08:52] LABS: ALBUMIN 2.7 g/dl (3.4-5.0); BILIRUBIN,TOTAL 0.2 mg/dL (0.2-1); BLOOD UREA NITROGEN 65.5 mg/dL (7-18); CREATININE 1.2 mg/dL (0.55-1.3); POTASSIUM 5.5 mmol/L (3.5-5.1); TOT PROT 5.8 g/dl (6.4-8.2)
[2019-10-03] MEDS ORDERED: DEXTROSE 5%-WATER - 50 ML IVPB ONE (10:40)
[2019-10-03] MEDS ORDERED: cefTRIAXone SODIUM 1 GM VIAL ONE (10:40)
[2019-10-03] MEDS ORDERED: PT OWN MED DRAWER 7, Y5N ONE ×2 (10:40→21:30)
[2019-10-03] MEDS: CEFTRIAXONE 1 GM in DEXTROSE 5%-WATER - 50 ML IVPB SCH (10:46)
[2019-10-03] MEDS: ASPIRIN 81 MG CHEWABLE TABLETS PO SCH (10:46)
[2019-10-03] MEDS: metoPROLOL SUCCINATE 25 MG TAB.SR.24H (FP) PO SCH ×2 (10:46→21:52)
[2019-10-03] MEDS: PIOGLITAZONE HCL 15 MG TABLET PO SCH (10:46)
[2019-10-03] MEDS: HEPARIN NA (PORCINE) 5,000 UNITS/ML 1ML VIAL SQ SCH ×2 (10:47→21:52)
[2019-10-03] MEDS: DICYCLOMINE HCL 10 MG CAPSULE PO SCH ×2 (10:47→21:52)
[2019-10-03] MEDS: FERROUS SO4 325 MG TABLET (FP) PO SCH (10:47)
[2019-10-03] MEDS: PANTOPRAZOLE 40 MG TABLET PO SCH ×2 (10:47→21:52)
[2019-10-03] MEDS: BUDESONIDE/FORMETEROL FUMARATE 80/4.5 mcg INHALER IH SCH ×2 (10:54→21:53)
[2019-10-03] MEDS ORDERED: INSULIN (NOVOLOG) ASPART 100 UNITS/ML 10ML VIAL ONE (11:47)
[2019-10-03] MEDS: AZITHROMYCIN IVPB 250 MG in DEXTROSE 5%-WATER - 250 ML IVPB SCH (11:50)
[2019-10-03 12:45] LABS: ANISOCYTOSIS 1+; MACROCYTOSIS 1+; PLATELET ESTIMATE NORMAL
--- NOTE | 2019-10-03 12:55 | PN ---
Progress Note, Physician History of Present Illness: PULMONARY ALERT,COMFORTABLE,SOB IMPROVING - Current Medication List Current Medications: Active Medications Albuterol Sulfate (Ventolin Hfa Inhaler -) 2 puff IH Q6H PRN PRN Reason: SHORT OF BREATH/WHEEZING Albuterol/Ipratropium (Duoneb -) 1 amp NEB RTID [facility] Last Admin: 10/03/19 07:20 Dose: 1 amp Aspirin (Asa -) 81 mg PO DAILY [facility] Last Admin: 10/03/19 10:46 Dose: 81 mg Atorvastatin Calcium (Lipitor -) 20 mg PO HS [facility] Last Admin: 10/02/19 21:58 Dose: 20 mg Budesonide/Formoterol Fumarate (Symbicort 80/4.5mcg -) 2 puff IH BID [facility] Last Admin: 10/03/19 10:54 Dose: 2 puff Dicyclomine HCl (Bentyl -) 10 mg PO BID [facility] Last Admin: 10/03/19 10:47 Dose: 10 mg Ferrous Sulfate (Feosol -) 325 mg PO DAILY [facility] Last Admin: 10/03/19 10:47 Dose: 325 mg Heparin Sodium (Porcine) (Heparin -) 5,000 unit SQ BID [facility] Last Admin: 10/03/19 10:47 Dose: 5,000 unit Ceftriaxone Sodium 1 gm/ (Dextrose) 50 mls @ 100 mls/hr IVPB DAILY [facility]; Protocol Last Admin: 10/03/19 10:46 Dose: 100 mls/hr Azithromycin 250 mg/ Dextrose 250 mls @ 250 mls/hr IVPB DAILY [facility] Last Admin: 10/03/19 11:50 Dose: 250 mls/hr Insulin Aspart (Novolog Vial Sliding Scale -) 1 vial SQ ACHS [facility]; Protocol Last Admin: 10/03/19 11:49 Dose: 6 units Insulin Detemir (Levemir Vial) 5 units SQ HS [facility] Last Admin: 10/02/19 21:58 Dose: 5 unit Methylprednisolone Sodium Succinate (Solu-Medrol -) 40 mg IVPUSH BID [facility] Last Admin: 10/03/19 10:42 Dose: 40 mg Metoprolol Succinate (Toprol Xl -) 25 mg PO BID [facility] Last Admin: 10/03/19 10:46 Dose: 25 mg Non-Formulary Medication (Brinzolamide) 5 ml OP TID [facility] Pantoprazole Sodium (Protonix -) 40 mg PO BID [facility] Last Admin: 10/03/19 10:47 Dose: 40 mg Pioglitazone HCl (Actos -) 15 mg PO DAILY [facility] Last Admin: 10/03/19 10:46 Dose: 15 mg Sitagliptin Phosphate (Januvia -) 25 mg PO ACBK [facility] Last Admin: 10/03/19 06:47 Dose: 25 mg - Objective Vital Signs: Vital Signs Temperature 98.1 F 10/03/19 08:58 Pulse Rate 64 10/03/19 08:58 Respiratory Rate 18 10/03/19 09:00 Blood Pressure 139/71 10/03/19 08:58 O2 Sat by Pulse Oximetry (%) 96 10/03/19 09:00 Constitutional: Yes: Well Nourished, Calm Eyes: Yes: WNL HENT: Yes: WNL Neck: Yes: WNL Cardiovascular: Yes: Regular Rate and Rhythm, S1, S2 Respiratory: Yes: CTA Bilaterally Gastrointestinal: Yes: Normal Bowel Sounds, Soft Extremities: Yes: WNL Edema: No Labs: CBC, BMP 10/03/19 07:40 10/03/19 07:40 - ....Imaging Cat Scan: Report Reviewed, Image Reviewed Assessment/Plan Problem List - Problems (1) Pneumonia Code(s): J18.9 - PNEUMONIA, UNSPECIFIED ORGANISM Qualifiers: Pneumonia type: due to unspecified organism Laterality: right Lung location: lower lobe of lung Qualified Code(s): J18.9 - Pneumonia, unspecified organism (2) Anemia Code(s): D64.9 - ANEMIA, UNSPECIFIED Qualifiers: Anemia type: unspecified type Qualified Code(s): D64.9 - Anemia, unspecified (3) Chronic renal insufficiency Code(s): N18.9 - CHRONIC KIDNEY DISEASE, UNSPECIFIED (4) MCDANIEL (dyspnea on exertion) Code(s): R06.09 - OTHER FORMS OF DYSPNEA (5) Presence of stent in coronary artery in patient with coronary artery disease Code(s): I25.10 - ATHSCL HEART DISEASE OF [place] CORONARY ARTERY W/O ANG PCTRS; Z95.5 - PRESENCE OF CORONARY ANGIOPLASTY IMPLANT AND GRAFT (6) Retinopathy due to secondary diabetes Code(s): E13.319 - OTH DIABETES W UNSP DIABETIC RETINOPATHY W/O MACULAR EDEMA (7) SOB (shortness of breath) Code(s): R06.02 - SHORTNESS OF BREATH (8) CAD (coronary artery disease) Code(s): I25.10 - ATHSCL HEART DISEASE OF [place] CORONARY ARTERY W/O ANG PCTRS (9) COPD (chronic obstructive pulmonary disease) Code(s): J44.9 - CHRONIC OBSTRUCTIVE PULMONARY DISEASE, UNSPECIFIED (10) Diabetes mellitus Code(s): E11.9 - TYPE 2 DIABETES MELLITUS WITHOUT COMPLICATIONS (11) HLD (hyperlipidemia) Code(s): E78.5 - HYPERLIPIDEMIA, UNSPECIFIED (12) HTN (hypertension) Code(s): I10 - ESSENTIAL (PRIMARY) HYPERTENSION HTPERKALEMIA CORRECTED Assessment/Plan Rocephin / Zithromax BD TX standing and PRN Medrol,start prednisone in am No smoking was counseled monitor lytes,renal function,k DR ALMAGUER
--- NOTE | 2019-10-03 18:45 | PN ---
Progress Note (short form) - Note Progress Note: RANDY ON CKD IN SETTING OF ACUTE ILLNESS PRERENAL sHE HAS INTERMITTENT PROTEINURIA 2/2 ACUTE ILLNESS, COPD ACUTE EXACERBATION ACUTE LUNG INFECTION RLL PNA PMHX CVA, CAD, HTN, HPL, DM, CKD Current Medications Albuterol Sulfate (Ventolin Hfa Inhaler -) 2 puff IH Q6H PRN PRN Reason: SHORT OF BREATH/WHEEZING Albuterol/Ipratropium (Duoneb -) 1 amp NEB RTID [facility] Last Admin: 10/03/19 14:12 Dose: 1 amp Aspirin (Asa -) 81 mg PO DAILY [facility] Last Admin: 10/03/19 10:46 Dose: 81 mg Atorvastatin Calcium (Lipitor -) 20 mg PO HS [facility] Last Admin: 10/02/19 21:58 Dose: 20 mg Budesonide/Formoterol Fumarate (Symbicort 80/4.5mcg -) 2 puff IH BID [facility] Last Admin: 10/03/19 10:54 Dose: 2 puff Dicyclomine HCl (Bentyl -) 10 mg PO BID [facility] Last Admin: 10/03/19 10:47 Dose: 10 mg Ferrous Sulfate (Feosol -) 325 mg PO DAILY [facility] Last Admin: 10/03/19 10:47 Dose: 325 mg Heparin Sodium (Porcine) (Heparin -) 5,000 unit SQ BID [facility] Last Admin: 10/03/19 10:47 Dose: 5,000 unit Ceftriaxone Sodium 1 gm/ (Dextrose) 50 mls @ 100 mls/hr IVPB DAILY [facility]; Protocol Last Admin: 10/03/19 10:46 Dose: 100 mls/hr Azithromycin 250 mg/ Dextrose 250 mls @ 250 mls/hr IVPB DAILY [facility] Last Admin: 10/03/19 11:50 Dose: 250 mls/hr Insulin Aspart (Novolog Vial Sliding Scale -) 1 vial SQ ACHS [facility]; Protocol Last Admin: 10/03/19 16:59 Dose: 10 units Insulin Detemir (Levemir Vial) 5 units SQ HS [facility] Last Admin: 10/02/19 21:58 Dose: 5 unit Methylprednisolone Sodium Succinate (Solu-Medrol -) 40 mg IVPUSH BID [facility] Stop: 10/03/19 23:00 Last Admin: 10/03/19 10:42 Dose: 40 mg Metoprolol Succinate (Toprol Xl -) 25 mg PO BID [facility] Last Admin: 10/03/19 10:46 Dose: 25 mg Non-Formulary Medication (Brinzolamide) 5 ml OP TID [facility] Pantoprazole Sodium (Protonix -) 40 mg PO BID [facility] Last Admin: 10/03/19 10:47 Dose: 40 mg Pioglitazone HCl (Actos -) 15 mg PO DAILY [facility] Last Admin: 10/03/19 10:46 Dose: 15 mg Prednisone (Deltasone -) 40 mg PO DAILY [facility] Sitagliptin Phosphate (Januvia -) 25 mg PO ACBK [facility] Last Admin: 10/03/19 06:47 Dose: 25 mg Last Vital Signs Temp Pulse Resp BP Pulse Ox 97.8 F 70 18 131/61 96 10/03/19 18:00 10/03/19 18:00 10/03/19 18:00 10/03/19 18:00 10/03/19 09:00 lUNGS CLEAR hEART REG aBD SOFT EXT NO EDEMA CBC, [facility] 10/03/19 07:40 10/03/19 07:40 CBC, BMP 10/02/19 08:22 10/02/19 17:20 s/p randy persistent prerenal hyperkalemia Plan HYDRATION RECHECK K
[2019-10-03] MEDS: ATORVASTATIN CA 20 MG TABLET (FP) PO SCH (21:52)
[2019-10-03] MEDS: INSULIN (LEVEMIR) 100 UNITS/ML UNITS SQ SCH (21:53)
[2019-10-04] MEDS: INSULIN SLIDING SCALE (NOVOLOG) 1 VIAL SQ SCH ×5 (01:56→23:06)
--- NOTE | 2019-10-04 06:19 | PN ---
Progress Note, Physician Chief Complaint: in bed NAD no cough less SOB chest CT noted - Current Medication List Current Medications: Active Medications Albuterol Sulfate (Ventolin Hfa Inhaler -) 2 puff IH Q6H PRN PRN Reason: SHORT OF BREATH/WHEEZING Albuterol/Ipratropium (Duoneb -) 1 amp NEB RTID [facility] Last Admin: 10/03/19 20:35 Dose: 1 amp Aspirin (Asa -) 81 mg PO DAILY [facility] Last Admin: 10/03/19 10:46 Dose: 81 mg Atorvastatin Calcium (Lipitor -) 20 mg PO HS [facility] Last Admin: 10/03/19 21:52 Dose: 20 mg Budesonide/Formoterol Fumarate (Symbicort 80/4.5mcg -) 2 puff IH BID [facility] Last Admin: 10/03/19 21:53 Dose: 2 puff Dicyclomine HCl (Bentyl -) 10 mg PO BID [facility] Last Admin: 10/03/19 21:52 Dose: 10 mg Ferrous Sulfate (Feosol -) 325 mg PO DAILY [facility] Last Admin: 10/03/19 10:47 Dose: 325 mg Heparin Sodium (Porcine) (Heparin -) 5,000 unit SQ BID [facility] Last Admin: 10/03/19 21:52 Dose: 5,000 unit Ceftriaxone Sodium 1 gm/ (Dextrose) 50 mls @ 100 mls/hr IVPB DAILY [facility]; Protocol Last Admin: 10/03/19 10:46 Dose: 100 mls/hr Azithromycin 250 mg/ Dextrose 250 mls @ 250 mls/hr IVPB DAILY [facility] Last Admin: 10/03/19 11:50 Dose: 250 mls/hr Insulin Aspart (Novolog Vial Sliding Scale -) 1 vial SQ ACHS [facility]; Protocol Last Admin: 10/04/19 06:17 Dose: 2 units Insulin Detemir (Levemir Vial) 5 units SQ HS [facility] Last Admin: 10/03/19 21:53 Dose: 5 unit Metoprolol Succinate (Toprol Xl -) 25 mg PO BID [facility] Last Admin: 10/03/19 21:52 Dose: 25 mg Non-Formulary Medication (Brinzolamide) 5 ml OP TID [facility] Pantoprazole Sodium (Protonix -) 40 mg PO BID [facility] Last Admin: 10/03/19 21:52 Dose: 40 mg Pioglitazone HCl (Actos -) 15 mg PO DAILY [facility] Last Admin: 10/03/19 10:46 Dose: 15 mg Prednisone (Deltasone -) 40 mg PO DAILY [facility] Sitagliptin Phosphate (Januvia -) 25 mg PO ACBK [facility] Last Admin: 10/04/19 06:17 Dose: 25 mg - Objective Vital Signs: Vital Signs Temperature 97.8 F 10/03/19 18:00 Pulse Rate 70 10/03/19 22:08 Respiratory Rate 18 10/03/19 22:08 Blood Pressure 108/49 L 10/03/19 22:08 O2 Sat by Pulse Oximetry (%) 96 10/03/19 21:00 Constitutional: Yes: No Distress, Calm Eyes: Yes: Conjunctiva Clear HENT: Yes: Atraumatic Neck: Yes: Supple Cardiovascular: Yes: Regular Rate and Rhythm Respiratory: Yes: CTA Bilaterally Gastrointestinal: Yes: Soft. No: Tenderness Genitourinary: No: Hematuria Musculoskeletal: No: Joint Stiffness, Joint Swelling Extremities: No: Cold, Cool, Cyanosis Edema: No Integumentary: No: Rash, Venous Stasis Changes Neurological: Yes: Alert, Oriented ...Motor Strength: WNL Psychiatric: Yes: Alert, Oriented. No: Agitated Labs: CBC, BMP 10/03/19 07:40 10/03/19 07:40 - ....Imaging Other: Report Reviewed Assessment/Plan The patient is a 79 year old female, with PMH of DM, HTN, COPD (Home O2), CVA, CAD, PA s/p stents, SBO, asthma, symptomatic anemia, and biliary sepsis s/p ERSP , who presents to the emergency department for evaluation of 1 week of worsening SOB and productive cough, brownish in color with associated diffuse pleuritic chest pain and intermittent chills. Dx with PNA; also anemia; developed ARF and hyperK; consults appreciated; IV ATB; s/p kayexalate f/u labs, cultures anemia, heme and GI eval; h/o gallstones ? biliary stones - GI eval - has h/o BCD stones ERCP in the past cont meds; falls DVT pfx d/w pt and staff
[2019-10-04] MEDS: ALBUTEROL SO4 2.5/IPRATROPIUM 0.5 INH SOL 3 ML VIAL.NEB. NEB SCH ×3 (08:22→20:00)
[2019-10-04 08:59] LABS: BASO % 0.1 % (0-2.0); HEMATOCRIT 28.2 % (32.4-45.2); HEMOGLOBIN 9.1 GM/dL (10.7-15.3); LYMPH % 9.3 % (8-40); MCH 29.1 pg (25.7-33.7); MCHC 32.4 g/dl (32.0-36.0); MEAN CELL VOLUME 89.9 fl (80-96); MEAN PLT VOLUME 8.2 fl (7.5-11.1); MONO % 4.1 % (3.8-10.2); NEUT % 86.5 % (42.8-82.8); PLATELET COUNT 382 K/MM3 (134-434); RBC 3.14 M/mm3 (3.60-5.2); WHITE BLOOD COUNT 7.9 K/mm3 (4.0-10.0)
[2019-10-04 09:25] LABS: ALBUMIN 2.6 g/dl (3.4-5.0); BILIRUBIN,TOTAL 0.2 mg/dL (0.2-1); BLOOD UREA NITROGEN 60.5 mg/dL (7-18); CALCIUM 8.8 mg/dL (8.5-10.1); CREATININE 1.1 mg/dL (0.55-1.3); POTASSIUM 5.7 mmol/L (3.5-5.1); TOT PROT 5.7 g/dl (6.4-8.2)
[2019-10-04] MEDS ORDERED: SODIUM POLYSTYRENE SULFONATE 15 GM/60 ML BOTTLE PO ONE (09:26)
[2019-10-04] MEDS ORDERED: cefTRIAXone SODIUM 1 GM VIAL ONE (11:01)
[2019-10-04] MEDS ORDERED: PT OWN MED DRAWER 7, Y5N ONE ×4 (11:01→22:40)
[2019-10-04] MEDS ORDERED: DEXTROSE 5%-WATER - 50 ML IVPB ONE (11:02)
--- NOTE | 2019-10-04 11:03 | CONSULT ---
Consultation: CONSULT SERVICE: Hematology/Oncology Resident HISTORY OF PRESENT ILLNESS: 79yo F with h/o CVA (L residual facial weakness), CAD, HTN, HLd, COPD, depression, Type 2 DM who presents originally due to a productive cough which worsened acutely and was found to have pneumonia. It was noted that patient was recently at [facility] for anemia and underwent EGD at the time with no significant findings. We were asked to medically evluate the patient due to his anemia found during workup now at 9.1/27.7. Pt is on ferrous sulfate PO supplementation and reports some constipation intermittently. Pt reports breathing has improved slightly, but still has cough decreasing in frequency. Pt has been seen in the past during hospitalizations due to his anemia and hemolytic workup was negative. He has not received any packed cells this admission. 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 [employer] Family History: Mother - ; DM Father - ; "bleeding ulcer" Sister - DM Daughter - ; Lung Ca Son - CAD, DM PHYSICAL EXAMINATION Vital Signs - 24 hr 10/03/19 10/03/19 10/03/19 15:12 18:00 21:00 Temperature 98.4 F 97.8 F Pulse Rate 62 70 Respiratory 18 18 Rate Blood Pressure 116/50 L 131/61 O2 Sat by Pulse 96 Oximetry (%) 10/03/19 10/04/19 22:08 06:00 Temperature 97.7 F Pulse Rate 70 60 Respiratory 18 18 Rate Blood Pressure 108/49 L 134/55 L O2 Sat by Pulse Oximetry (%) GENERAL: Awake, alert, and fully oriented, NAD HEENT: NC/At, EOMI, NU, sclera anicteric, no conjunctival pallor, MMM without thrush/mucositis NECK: No JVD, no masses/lymphadenopathy LUNGS: Diminshed RLL breath sounds, but otherwise CTA. No wheezes. No accessory muscle use. CHEST: No lumps detected, no axillary lymphadenopathy HEART: RRR, normal S1 and S2 without murmur ABDOMEN: Soft, NT/ND, normoactive BS, no guarding, no masses, no hepatomegaly, no splenomegaly. MUSCULOSKELETAL: No CVA tenderness. EXTREMITIES: 2+ pulses, warm, well-perfused. No calf tenderness. No peripheral edema. NEUROLOGICAL: L-sided facial weakness exacerbated with smiling (Chronic). strength upper extremities 4/5, but symmetrical, strength lower extremities 4/5 but symmetrical. PSYCHIATRIC: Cooperative. Good eye contact. Appropriate mood and affect. SKIN: Warm, dry, no rashes or lesions noted. Laboratory Results - last 24 hr 10/03/19 10/03/19 10/03/19 07:40 11:18 16:22 WBC RBC Hgb Hct MCV MCH MCHC RDW Plt Count MPV Absolute Neuts (auto) Neutrophils % Neutrophils % (Manual) 89.1 H Band Neutrophils % 1.0 Lymphocytes % Lymphocytes % (Manual) 4.9 L D Monocytes % Monocytes % (Manual) 0 L D Eosinophils % Eosinophils % (Manual) 0.0 Basophils % Basophils % (Manual) 1.0 D Myelocytes % (Man) 2 D Promyelocytes % (Man) 0 Blast Cells % (Manual) 0 Nucleated RBC % Metamyelocytes 0 Hypochromia 0 Platelet Estimate Normal Polychromasia 1+ Poikilocytosis 0 Anisocytosis 1+ Microcytosis 1+ Macrocytosis 1+ Sodium Potassium Chloride Carbon Dioxide Anion Gap BUN Creatinine Est GFR (CKD-EPI)AfAm Est GFR (CKD-EPI)NonAf POC Glucometer 283 379 Random Glucose Calcium Total Bilirubin AST ALT Alkaline Phosphatase Total Protein Albumin 10/03/19 10/04/19 10/04/19 21:50 01:54 05:43 WBC RBC Hgb Hct MCV MCH MCHC RDW Plt Count MPV Absolute Neuts (auto) Neutrophils % Neutrophils % (Manual) Band Neutrophils % Lymphocytes % Lymphocytes % (Manual) Monocytes % Monocytes % (Manual) Eosinophils % Eosinophils % (Manual) Basophils % Basophils % (Manual) Myelocytes % (Man) Promyelocytes % (Man) Blast Cells % (Manual) Nucleated RBC % Metamyelocytes Hypochromia Platelet Estimate Polychromasia Poikilocytosis Anisocytosis Microcytosis Macrocytosis Sodium Potassium Chloride Carbon Dioxide Anion Gap BUN Creatinine Est GFR (CKD-EPI)AfAm Est GFR (CKD-EPI)NonAf POC Glucometer 319 219 198 Random Glucose Calcium Total Bilirubin AST ALT Alkaline Phosphatase Total Protein Albumin 10/04/19 10/04/19 07:49 07:49 WBC 7.9 RBC 3.14 L Hgb 9.1 L Hct 28.2 L MCV 89.9 MCH 29.1 MCHC 32.4 RDW 16.0 H Plt Count 382 MPV 8.2 Absolute Neuts (auto) 6.8 Neutrophils % 86.5 H Neutrophils % (Manual) Band Neutrophils % Lymphocytes % 9.3 D Lymphocytes % (Manual) Monocytes % 4.1 Monocytes % (Manual) Eosinophils % 0.0 Eosinophils % (Manual) Basophils % 0.1 Basophils % (Manual) Myelocytes % (Man) Promyelocytes % (Man) Blast Cells % (Manual) Nucleated RBC % 0 Metamyelocytes Hypochromia Platelet Estimate Polychromasia Poikilocytosis Anisocytosis Microcytosis Macrocytosis Sodium 136 Potassium 5.7 H Chloride 102 Carbon Dioxide 32 Anion Gap 3 L BUN 60.5 H Creatinine 1.1 Est GFR (CKD-EPI)AfAm 55.30 Est GFR (CKD-EPI)NonAf 47.71 POC Glucometer Random Glucose 184 H Calcium 8.8 Total Bilirubin 0.2 AST 8 L ALT 12 L Alkaline Phosphatase 39 L Total Protein 5.7 L Albumin 2.6 L Active Medications Generic Name Dose Route Start Last Admin Trade Name Freq PRN Reason Stop Dose Admin Albuterol Sulfate 2 puff 09/29/19 19:06 Ventolin Hfa Inhaler - IH Q6H PRN SHORT OF BREATH/WHEEZING Albuterol/Ipratropium 1 amp 09/30/19 14:00 10/04/19 08:22 Duoneb - NEB 1 amp RTID [facility] Administration Aspirin 81 mg 09/30/19 10:00 10/03/19 10:46 Asa - PO 81 mg DAILY [facility] Administration Atorvastatin Calcium 20 mg 09/30/19 22:00 10/03/19 21:52 Lipitor - PO 20 mg HS [facility] Administration Budesonide/Formoterol Fumarate 2 puff 09/29/19 22:00 10/03/19 21:53 Symbicort 80/4.5mcg - IH 2 puff BID [facility] Administration Dicyclomine HCl 10 mg 09/29/19 22:00 10/03/19 21:52 Bentyl - PO 10 mg BID [facility] Administration Dorzolamide HCl 1 drop 10/04/19 14:00 Trusopt 2% OU TID [facility] Ferrous Sulfate 325 mg 09/30/19 10:00 10/03/19 10:47 Feosol - PO 325 mg DAILY [facility] Administration Ceftriaxone Sodium 1 gm/ 50 mls @ 100 mls/hr 09/30/19 11:15 10/03/19 10:46 Dextrose IVPB 100 mls/hr DAILY [facility] Administration Protocol Azithromycin 250 mg/ Dextrose 250 mls @ 250 mls/hr 09/30/19 12:00 10/03/19 11 :50 IVPB 250 mls/hr DAILY [facility] Administration Insulin Aspart 1 vial 10/01/19 22:00 10/04/19 06:17 Novolog Vial Sliding Scale - SQ 2 units ACHS [facility] Administration Protocol Insulin Detemir 5 units 10/01/19 22:00 10/03/19 21:53 Levemir Vial SQ 5 unit HS [facility] Administration Metoprolol Succinate 12.5 mg 10/04/19 06:23 Toprol Xl - PO BID [facility] Pantoprazole Sodium 40 mg 09/29/19 22:00 10/03/19 21:52 Protonix - PO 40 mg BID [facility] Administration Pioglitazone HCl 15 mg 09/30/19 10:00 10/03/19 10:46 Actos - PO 15 mg DAILY [facility] Administration Prednisone 40 mg 10/04/19 10:00 Deltasone - PO DAILY [facility] Sitagliptin Phosphate 25 mg 10/02/19 07:00 10/04/19 06:17 Januvia - PO 25 mg ACBK [facility] Administration ASSESSMENT/PLAN: Normocytic anemia Pneumonia Hyperkalemia History of CVA with residual deficits History of DM with diabetic retinopathy COPD --Most recent iron studies 05/2019: iron + TIBC normal with high ferritin --Unclear of timing with regards to PRBC during that hospitalization --Obtain [facility] records to see if imaging performed which may r/o any malignant process and further GI investigation --Pt asymptomatic currently with no acute drop; likely related to his chronic ongoing conditions (pt with hx elevated Cr likely acute on CKD) vs. GI causes --Monitor for bleeding --Transfusion threshold >7gm --Rest per primary teams --Can continue PO supplementation, however close following to patient's constipation Case to be discussed Aime Romero, DO - IM PGY-3 Visit type - Emergency Visit Emergency Visit: Yes ED Registration Date: 09/29/19 Care time: The patient presented to the Emergency Department on the above date and was hospitalized for further evaluation of their emergent condition. - New Patient This patient is new to me today: No - Critical Care Critical Care patient: No ATTENDING PHYSICIAN STATEMENT I saw and evaluated the patient. I reviewed the resident's note and discussed the case with the resident. I agree with the resident's findings and plan as documented. SUBJECTIVE: OBJECTIVE: ASSESSMENT AND PLAN:
[2019-10-04] MEDS: predniSONE 20 MG TABLET (UD) PO SCH (11:08)
[2019-10-04] MEDS: DICYCLOMINE HCL 10 MG CAPSULE PO SCH ×2 (11:09→23:05)
[2019-10-04] MEDS: PANTOPRAZOLE 40 MG TABLET PO SCH ×2 (11:09→23:04)
[2019-10-04] MEDS: FERROUS SO4 325 MG TABLET (FP) PO SCH (11:09)
[2019-10-04] MEDS: PIOGLITAZONE HCL 15 MG TABLET PO SCH (11:10)
[2019-10-04] MEDS: CEFTRIAXONE 1 GM in DEXTROSE 5%-WATER - 50 ML IVPB SCH (11:10)
[2019-10-04] MEDS: ASPIRIN 81 MG CHEWABLE TABLETS PO SCH (11:10)
[2019-10-04] MEDS: BUDESONIDE/FORMETEROL FUMARATE 80/4.5 mcg INHALER IH SCH ×2 (11:11→23:07)
[2019-10-04] MEDS: metoPROLOL SUCCINATE 25 MG TAB.SR.24H (FP) PO SCH ×2 (11:11→23:04)
--- NOTE | 2019-10-04 11:53 | PN ---
Progress Note (short form) - Note Progress Note: PULMONARY Denies shortness of breath, cough or wheezing. Vital Signs Period Temp Pulse Resp BP Sys/Burrell Pulse Ox Last 24 Hr 97.7 F-98.4 F 60-70 18-24 102-134/40-61 96 Gen: NAD at rest Heart: RRR Lung: decreased breath sounds at the bases Abd: soft, nontender Ext: no edema CBC, BMP 10/04/19 07:49 10/04/19 07:49 Active Medications Albuterol Sulfate (Ventolin Hfa Inhaler -) 2 puff IH Q6H PRN PRN Reason: SHORT OF BREATH/WHEEZING Albuterol/Ipratropium (Duoneb -) 1 amp NEB RTID [facility] Last Admin: 10/04/19 08:22 Dose: 1 amp Aspirin (Asa -) 81 mg PO DAILY [facility] Last Admin: 10/04/19 11:10 Dose: 81 mg Atorvastatin Calcium (Lipitor -) 20 mg PO HS [facility] Last Admin: 10/03/19 21:52 Dose: 20 mg Budesonide/Formoterol Fumarate (Symbicort 80/4.5mcg -) 2 puff IH BID [facility] Last Admin: 10/04/19 11:11 Dose: 2 puff Dicyclomine HCl (Bentyl -) 10 mg PO BID [facility] Last Admin: 10/04/19 11:09 Dose: 10 mg Dorzolamide HCl (Trusopt 2%) 1 drop OU TID [facility] Ferrous Sulfate (Feosol -) 325 mg PO DAILY [facility] Last Admin: 10/04/19 11:09 Dose: 325 mg Ceftriaxone Sodium 1 gm/ (Dextrose) 50 mls @ 100 mls/hr IVPB DAILY [facility]; Protocol Last Admin: 10/04/19 11:10 Dose: 100 mls/hr Azithromycin 250 mg/ Dextrose 250 mls @ 250 mls/hr IVPB DAILY [facility] Last Admin: 10/03/19 11:50 Dose: 250 mls/hr Insulin Aspart (Novolog Vial Sliding Scale -) 1 vial SQ ACHS [facility]; Protocol Last Admin: 10/04/19 06:17 Dose: 2 units Insulin Detemir (Levemir Vial) 5 units SQ HS [facility] Last Admin: 10/03/19 21:53 Dose: 5 unit Metoprolol Succinate (Toprol Xl -) 12.5 mg PO BID [facility] Last Admin: 10/04/19 11:11 Dose: Not Given Pantoprazole Sodium (Protonix -) 40 mg PO BID [facility] Last Admin: 10/04/19 11:09 Dose: 40 mg Pioglitazone HCl (Actos -) 15 mg PO DAILY [facility] Last Admin: 10/04/19 11:10 Dose: 15 mg Prednisone (Deltasone -) 40 mg PO DAILY [facility] Last Admin: 10/04/19 11:08 Dose: 40 mg Sitagliptin Phosphate (Januvia -) 25 mg PO ACBK [facility] Last Admin: 10/04/19 06:17 Dose: 25 mg A/P Pneumonia Acute COPD Exacerbation Chronic Hypoxic Respiratory Failure CAD HTN DM Hyperlipidemia h/o CVA Anemia - complete antibiotic course - prednisone taper - inhaled bronchodilators - O2 to keep SpO2 >90% - DVT prophylaxis
[2019-10-04 12:28] LABS: ANISOCYTOSIS 1+; MACROCYTOSIS 0; OVALOCYTE 1+; PLATELET ESTIMATE NORMAL; TEAR DROP CELLS 1+; TOXIC GRANULATION 1+
[2019-10-04] MEDS: AZITHROMYCIN IVPB 250 MG in DEXTROSE 5%-WATER - 250 ML IVPB SCH (12:29)
--- NOTE | 2019-10-04 13:44 | CON.GI ---
Consult Consult Specialty:: GI Reason for Consultation:: common bile duct stone by CT - History of Present Illness History of Present Illness: 79 year old female, with PMH of DM, HTN, COPD (Home O2), CVA, CAD, [place] s/p stents , SBO, asthma, symptomatic anemia, and biliary sepsis s/p ERCP twice for CBD stone was admitted for further evaluation and management of pneumonia. On chest catscan she was noted to have consolidation of the mid and lower right lung santoro, pleural effusion, pneumobilia and possible CBD stone. She denies abdominal pain, nausea and vomiting. Her liver enzymes remain to be normal. She was also noted to have vascular lesion noted by CT and MRI but could not be cauterized using the endoscope. One option was to be embolized by angiography. The hemoglobin is stable at 9grams. There no reports available. She is receiving IV iron as an outpatient. - History Source History Provided By: Family Member (daughter) - Past Medical History [employer]: Yes: CVA (residual left lower lip numbness) Cardio/Vascular: Yes: CAD, HTN, IL, Hyperlipdemia Pulmonary: Yes: Asthma, Bronchitis, COPD. No: O2 Dependent, Pneumonia, Previously Intubated, Pulmonary Embolus, Pulmonary Fibrosis, Sleep Apnea Gastrointestinal: Yes: Constipation, Hiatal Hernia Renal/: Yes: Renal Inusuff ...: No Psych: Yes: Depression Endocrine: Yes: Diabetes Mellitus (with diabetic retinopathy ( had interventions ) and nephropathy ) - Past Surgical History Past Surgical History: Yes: Appendectomy, Tubal Ligation, Colonoscopy, Upper Endoscopy, Breast Biopsy, Cholecystectomy - Alcohol/Substance Use Hx Alcohol Use: No History of Substance Use: reports: None - Smoking History Smoking history: Former smoker Have you smoked in the past 12 months: No Aproximately how many cigarettes per day: 4 If you are a former smoker, when did you quit?: 6 years ago - Social History Usual Living Arrangement: With Spouse ADL: Independent 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 History of Recent Travel: No Home Medications - Allergies Allergies/Adverse Reactions: Allergies Allergy/AdvReac Type Severity Reaction Status Date / Time No Known Allergies Allergy Verified 09/29/19 12:56 - Home Medications Home Medications: Ambulatory Orders Aspirin [ASA -] 81 mg PO DAILY 04/12/17 Metoprolol Succinate [Toprol XL -] 25 mg PO BID 04/12/17 Olmesartan Medoxomil [Benicar -] 20 mg PO DAILY 04/12/17 Albuterol Sulfate Inhaler - [Ventolin HFA Inhaler -] 1 - 2 inh PO Q4H PRN Pioglitazone HCl 15 mg PO DAILY 04/28/18 Ferrous Sulfate [Feosol] 325 mg PO DAILY 02/15/19 Metformin HCl [Glucophage] 1,000 mg PO BID 03/24/19 Brinzolamide [Azopt (Non-Formulary)] 5 ml OP TID 09/29/19 Budesonide/Formeterol Fumarate [SYMBICORT 80/4.5mcg -] 2 inh PO BID 09/29/19 Dicyclomine HCl 10 mg PO BID 09/29/19 Pantoprazole Sodium 40 mg PO BID 09/29/19 Simvastatin 40 mg PO DAILY 09/29/19 Sitagliptin Phosphate [Januvia] 100 mg PO DAILY 09/29/19 Physical Exam-GI Vital Signs: Vital Signs Temperature 98.3 F 10/04/19 10:54 Pulse Rate 70 10/04/19 10:54 Respiratory Rate 24 H 10/04/19 10:54 Blood Pressure 102/40 L 10/04/19 10:54 O2 Sat by Pulse Oximetry (%) 96 10/03/19 21:00 Constitutional: Yes: Well Nourished, No Distress Eyes: Yes: Conjunctiva Clear HENT: Yes: Atraumatic, Tonsillar Exudate Cardiovascular: Yes: Regular Rate and Rhythm Respiratory: Yes: Other (decreased breath sounds in the bases) Gastrointestinal Inspection: No: Ascites ...Palpate: Yes: Soft. No: Firm/Rigid, Guarding, Hepatomegaly, Mass, Pulsatile Mass, Splenomegaly, Tenderness Labs: CBC, BMP 10/04/19 07:49 10/04/19 07:49 Imaging - Results Chest X-ray: Report Reviewed, Image Reviewed Problem List - Problems (1) Dilated bile duct Assessment/Plan: s/p removal of large stone at [facility] ,now noted to have a possible small stone by catscan R> agree with MRCP if stone is small this could pass on its own. She will be a high risk of undergoing ERCP at this time because of the underlying COPD and pneumonia. will observe clinically and will do only supportive care, if signs of cholangitis is present will need emergent ERCP Code(s): K83.8 - OTHER SPECIFIED DISEASES OF BILIARY TRACT
[2019-10-04] MEDS: DORZOLAMIDE 2% HCL OPHTHALMIC SOLUTION 10 ML BOTTLE OU SCH ×2 (14:33→23:08)
[2019-10-04] MEDS ORDERED: MAGNESIUM OXIDE 400 MG TABLET (FP) PO ONE (16:43)
--- NOTE | 2019-10-04 16:43 | PN ---
Progress Note, Physician History of Present Illness: Pt seen and examined at bedside. She is awake and alert. She denies shortness of breath. - Current Medication List Current Medications: Active Medications Albuterol Sulfate (Ventolin Hfa Inhaler -) 2 puff IH Q6H PRN PRN Reason: SHORT OF BREATH/WHEEZING Albuterol/Ipratropium (Duoneb -) 1 amp NEB RTID [facility] Last Admin: 10/04/19 14:45 Dose: 1 amp Aspirin (Asa -) 81 mg PO DAILY [facility] Last Admin: 10/04/19 11:10 Dose: 81 mg Atorvastatin Calcium (Lipitor -) 20 mg PO HS [facility] Last Admin: 10/03/19 21:52 Dose: 20 mg Budesonide/Formoterol Fumarate (Symbicort 80/4.5mcg -) 2 puff IH BID [facility] Last Admin: 10/04/19 11:11 Dose: 2 puff Dicyclomine HCl (Bentyl -) 10 mg PO BID [facility] Last Admin: 10/04/19 11:09 Dose: 10 mg Dorzolamide HCl (Trusopt 2%) 1 drop OU TID [facility] Last Admin: 10/04/19 14:33 Dose: 1 drp Ferrous Sulfate (Feosol -) 325 mg PO DAILY [facility] Last Admin: 10/04/19 11:09 Dose: 325 mg Ceftriaxone Sodium 1 gm/ (Dextrose) 50 mls @ 100 mls/hr IVPB DAILY [facility]; Protocol Last Admin: 10/04/19 11:10 Dose: 100 mls/hr Azithromycin 250 mg/ Dextrose 250 mls @ 250 mls/hr IVPB DAILY [facility] Last Admin: 10/04/19 12:29 Dose: 250 mls/hr Insulin Aspart (Novolog Vial Sliding Scale -) 1 vial SQ ACHS [facility]; Protocol Last Admin: 10/04/19 12:27 Dose: 6 units Insulin Detemir (Levemir Vial) 5 units SQ HS [facility] Last Admin: 10/03/19 21:53 Dose: 5 unit Metoprolol Succinate (Toprol Xl -) 12.5 mg PO BID [facility] Last Admin: 10/04/19 11:11 Dose: Not Given Pantoprazole Sodium (Protonix -) 40 mg PO BID [facility] Last Admin: 10/04/19 11:09 Dose: 40 mg Pioglitazone HCl (Actos -) 15 mg PO DAILY [facility] Last Admin: 10/04/19 11:10 Dose: 15 mg Prednisone (Deltasone -) 40 mg PO DAILY [facility] Last Admin: 10/04/19 11:08 Dose: 40 mg Sitagliptin Phosphate (Januvia -) 25 mg PO ACBK [facility] Last Admin: 10/04/19 06:17 Dose: 25 mg - Objective Vital Signs: Vital Signs Temperature 98.6 F 10/04/19 14:00 Pulse Rate 69 10/04/19 14:00 Respiratory Rate 18 10/04/19 14:00 Blood Pressure 132/59 L 10/04/19 14:00 O2 Sat by Pulse Oximetry (%) 96 10/03/19 21:00 Constitutional: Yes: Calm Eyes: Yes: Conjunctiva Clear HENT: Yes: Atraumatic Neck: Yes: Supple Cardiovascular: Yes: S1, S2 Respiratory: Yes: CTA Bilaterally, On Nasal O2 Gastrointestinal: Yes: Soft Genitourinary: Yes: WNL Musculoskeletal: Yes: WNL Edema: No Neurological: Yes: Oriented Psychiatric: Yes: Oriented Labs: CBC, BMP 10/04/19 07:49 10/04/19 07:49 Assessment/Plan Current Medications Generic Name Dose Route Start Last Admin Trade Name Freq PRN Reason Stop Dose Admin Albuterol Sulfate 2 puff 09/29/19 19:06 Ventolin Hfa Inhaler - IH Q6H PRN SHORT OF BREATH/WHEEZING Albuterol/Ipratropium 1 amp 09/30/19 14:00 10/04/19 14:45 Duoneb - NEB 1 amp RTID [facility] Administration Aspirin 81 mg 09/30/19 10:00 10/04/19 11:10 Asa - PO 81 mg DAILY [facility] Administration Atorvastatin Calcium 20 mg 09/30/19 22:00 10/03/19 21:52 Lipitor - PO 20 mg HS [facility] Administration Budesonide/Formoterol Fumarate 2 puff 09/29/19 22:00 10/04/19 11:11 Symbicort 80/4.5mcg - IH 2 puff BID [facility] Administration Dicyclomine HCl 10 mg 09/29/19 22:00 10/04/19 11:09 Bentyl - PO 10 mg BID [facility] Administration Dorzolamide HCl 1 drop 10/04/19 14:00 10/04/19 14:33 Trusopt 2% OU 1 drp TID [facility] Administration Ferrous Sulfate 325 mg 09/30/19 10:00 10/04/19 11:09 Feosol - PO 325 mg DAILY [facility] Administration Ceftriaxone Sodium 1 gm/ 50 mls @ 100 mls/hr 09/30/19 11:15 10/04/19 11:10 Dextrose IVPB 100 mls/hr DAILY [facility] Administration Protocol Azithromycin 250 mg/ Dextrose 250 mls @ 250 mls/hr 09/30/19 12:00 10/04/19 12 :29 IVPB 250 mls/hr DAILY [facility] Administration Insulin Aspart 1 vial 10/01/19 22:00 10/04/19 12:27 Novolog Vial Sliding Scale - SQ 6 units ACHS [facility] Administration Protocol Insulin Detemir 5 units 10/01/19 22:00 10/03/19 21:53 Levemir Vial SQ 5 unit HS [facility] Administration Metoprolol Succinate 12.5 mg 10/04/19 06:23 10/04/19 11:11 Toprol Xl - PO Not Given BID [facility] Pantoprazole Sodium 40 mg 09/29/19 22:00 10/04/19 11:09 Protonix - PO 40 mg BID [facility] Administration Pioglitazone HCl 15 mg 09/30/19 10:00 10/04/19 11:10 Actos - PO 15 mg DAILY [facility] Administration Prednisone 40 mg 10/04/19 10:00 10/04/19 11:08 Deltasone - PO 40 mg DAILY [facility] Administration Sitagliptin Phosphate 25 mg 10/02/19 07:00 10/04/19 06:17 Januvia - PO 25 mg ACBK [facility] Administration Impression 1. hyperkalemia 2. CKD 3. DM 4. HTN 5. cva 6. cad Plan - pt did get kayexylate earlier - will start on lokelma - monitor mag levels - will also start fluids - monitor lytes and renal function
[2019-10-04] MEDS ORDERED: SODIUM ZIRCONIUM CYCLOSILICATE (LOKELMA) 5 GM PACKET PO SCH (16:45)
[2019-10-04] MEDS ORDERED: SODIUM CHLORIDE 0.45% 1,000 ML IV SCH (16:45)
--- NOTE | 2019-10-04 21:49 | PN ---
Teaching Attending Note Name of Resident: Aime Romero ATTENDING PHYSICIAN STATEMENT I saw and evaluated the patient. I reviewed the resident's note and discussed the case with the resident. I agree with the resident's findings and plan as documented. ASSESSMENT AND PLAN: 79 year old female, with PMH of DM, HTN, COPD (Home O2), CVA, CAD, [place] s/p stents , SBO, asthma, symptomatic anemia, and biliary sepsis s/p ERCP twice for CBD stone was admitted for further evaluation and management of pneumonia. On chest catscan she was noted to have consolidation of the mid and lower right lung santoro, pleural effusion, pneumobilia and possible CBD stone. She denies abdominal pain, nausea and vomiting. Her liver enzymes remain to be normal. Shy. The hemoglobin is stable at 9grams. anemina oc chronic disease +/- gi losses? on feosol/asa/protonix check iron/tibc/ferritin/B12/folate/TSH will follow
[2019-10-04] MEDS: ATORVASTATIN CA 20 MG TABLET (FP) PO SCH (23:05)
[2019-10-04] MEDS: INSULIN (LEVEMIR) 100 UNITS/ML UNITS SQ SCH (23:06)
[2019-10-05] MEDS: DORZOLAMIDE 2% HCL OPHTHALMIC SOLUTION 10 ML BOTTLE OU SCH ×4 (06:44→22:08)
[2019-10-05] MEDS: INSULIN SLIDING SCALE (NOVOLOG) 1 VIAL SQ SCH ×4 (06:44→22:07)
[2019-10-05] MEDS: ALBUTEROL SO4 2.5/IPRATROPIUM 0.5 INH SOL 3 ML VIAL.NEB. NEB SCH ×3 (07:35→20:37)
--- NOTE | 2019-10-05 08:13 | PN ---
Progress Note, Physician History of Present Illness: GI FOLLOW UP NOTE Patient examined and case discussed with Dr Feng Patient denies complaints of abdominal pain, nausea, vomiting, diarrhea, constipation, rectal bleeding. She does state having dark colored stool. Hg showing downtrend currently 9.1. - Current Medication List Current Medications: Active Medications Albuterol Sulfate (Ventolin Hfa Inhaler -) 2 puff IH Q6H PRN PRN Reason: SHORT OF BREATH/WHEEZING Albuterol/Ipratropium (Duoneb -) 1 amp NEB RTID [facility] Last Admin: 10/05/19 07:35 Dose: 1 amp Aspirin (Asa -) 81 mg PO DAILY [facility] Last Admin: 10/04/19 11:10 Dose: 81 mg Atorvastatin Calcium (Lipitor -) 20 mg PO HS [facility] Last Admin: 10/04/19 23:05 Dose: 20 mg Budesonide/Formoterol Fumarate (Symbicort 80/4.5mcg -) 2 puff IH BID [facility] Last Admin: 10/04/19 23:07 Dose: 2 puff Dicyclomine HCl (Bentyl -) 10 mg PO BID [facility] Last Admin: 10/04/19 23:05 Dose: 10 mg Dorzolamide HCl (Trusopt 2%) 1 drop OU TID [facility] Last Admin: 10/04/19 23:08 Dose: 1 drp Ferrous Sulfate (Feosol -) 325 mg PO DAILY [facility] Last Admin: 10/04/19 11:09 Dose: 325 mg Ceftriaxone Sodium 1 gm/ (Dextrose) 50 mls @ 100 mls/hr IVPB DAILY [facility]; Protocol Last Admin: 10/04/19 11:10 Dose: 100 mls/hr Azithromycin 250 mg/ Dextrose 250 mls @ 250 mls/hr IVPB DAILY [facility] Last Admin: 10/04/19 12:29 Dose: 250 mls/hr Sodium Chloride (1/2 Normal Saline) 1,000 mls @ 50 mls/hr IV ASDIR [facility] Stop: 10/05/19 16:43 Last Admin: 10/04/19 17:24 Dose: 50 mls/hr Insulin Aspart (Novolog Vial Sliding Scale -) 1 vial SQ ACHS [facility]; Protocol Last Admin: 10/05/19 06:44 Dose: 6 units Insulin Detemir (Levemir Vial) 5 units SQ [facility] Last Admin: 10/04/19 23:06 Dose: 5 unit Metoprolol Succinate (Toprol Xl -) 12.5 mg PO BID [facility] Last Admin: 10/04/19 23:04 Dose: 12.5 mg Pantoprazole Sodium (Protonix -) 40 mg PO BID [facility] Last Admin: 10/04/19 23:04 Dose: 40 mg Pioglitazone HCl (Actos -) 15 mg PO DAILY [facility] Last Admin: 10/04/19 11:10 Dose: 15 mg Prednisone (Deltasone -) 40 mg PO DAILY [facility] Last Admin: 10/04/19 11:08 Dose: 40 mg Sitagliptin Phosphate (Januvia -) 25 mg PO ACBK [facility] Last Admin: 10/05/19 06:44 Dose: 25 mg Sodium Zirconium Cyclosilicate (Lokelma) 10 gm PO DAILY [facility] - Objective Vital Signs: Vital Signs Temperature 97.8 F 10/05/19 06:00 Pulse Rate 76 10/05/19 06:00 Respiratory Rate 18 10/05/19 06:00 Blood Pressure 145/63 10/05/19 06:00 O2 Sat by Pulse Oximetry (%) 92 L 10/04/19 21:00 Constitutional: Yes: No Distress, Calm Eyes: Yes: Conjunctiva Clear HENT: Yes: Atraumatic Cardiovascular: Yes: Regular Rate and Rhythm Respiratory: Yes: Regular, Diminished, On Nasal O2 Gastrointestinal: Yes: Normal Bowel Sounds, Soft Neurological: Yes: Alert Psychiatric: Yes: Alert Labs: CBC, BMP 10/04/19 07:49 10/04/19 07:49 Problem List - Problems (1) Dilated bile duct Assessment/Plan: Chest CT shows dilatation of of the included common hepatic and common bile duct there are tiny hyperdensities layering within the included portion of the common bile duct suspicious for tiny stones pending MRCP for further evaluation Code(s): K83.8 - OTHER SPECIFIED DISEASES OF BILIARY TRACT
[2019-10-05 09:06] LABS: BASO % 0.1 % (0-2.0); EOS % 0.1 % (0-4.5); HEMATOCRIT 25.1 % (32.4-45.2); HEMOGLOBIN 8.1 GM/dL (10.7-15.3); MCH 29.1 pg (25.7-33.7); MCHC 32.3 g/dl (32.0-36.0); MEAN CELL VOLUME 90.1 fl (80-96); MEAN PLT VOLUME 7.9 fl (7.5-11.1); MONO % 7.2 % (3.8-10.2); NEUT % 79.6 % (42.8-82.8); PLATELET COUNT 346 K/MM3 (134-434); RBC 2.79 M/mm3 (3.60-5.2); RDW 15.7 % (11.6-15.6); RETICULOCYTES 0.99 % (0.5-1.5); WHITE BLOOD COUNT 6.2 K/mm3 (4.0-10.0)
[2019-10-05] MEDS ORDERED: cefTRIAXone SODIUM 1 GM VIAL ONE (09:38)
[2019-10-05] MEDS ORDERED: DEXTROSE 5%-WATER - 50 ML IVPB ONE (09:39)
[2019-10-05] MEDS: FERROUS SO4 325 MG TABLET (FP) PO SCH (09:43)
[2019-10-05] MEDS: CEFTRIAXONE 1 GM in DEXTROSE 5%-WATER - 50 ML IVPB SCH (09:43)
[2019-10-05] MEDS: metoPROLOL SUCCINATE 25 MG TAB.SR.24H (FP) PO SCH ×2 (09:43→22:03)
[2019-10-05] MEDS: DICYCLOMINE HCL 10 MG CAPSULE PO SCH ×2 (09:44→22:03)
[2019-10-05] MEDS: predniSONE 20 MG TABLET (UD) PO SCH (09:44)
[2019-10-05] MEDS: PANTOPRAZOLE 40 MG TABLET PO SCH ×2 (09:44→22:03)
[2019-10-05] MEDS: ASPIRIN 81 MG CHEWABLE TABLETS PO SCH (09:44)
[2019-10-05] MEDS: PIOGLITAZONE HCL 15 MG TABLET PO SCH (09:44)
[2019-10-05] MEDS: BUDESONIDE/FORMETEROL FUMARATE 80/4.5 mcg INHALER IH SCH ×2 (09:48→22:06)
--- NOTE | 2019-10-05 09:53 | PN ---
Progress Note, Physician History of Present Illness: Pt breathing is getting better. Pt w/o CP, palpitations, abd pain, nausea, vomiting. - Current Medication List Current Medications: Active Medications Albuterol Sulfate (Ventolin Hfa Inhaler -) 2 puff IH Q6H PRN PRN Reason: SHORT OF BREATH/WHEEZING Albuterol/Ipratropium (Duoneb -) 1 amp NEB RTID [facility] Last Admin: 10/05/19 07:35 Dose: 1 amp Aspirin (Asa -) 81 mg PO DAILY [facility] Last Admin: 10/05/19 09:44 Dose: 81 mg Atorvastatin Calcium (Lipitor -) 20 mg PO HS [facility] Last Admin: 10/04/19 23:05 Dose: 20 mg Budesonide/Formoterol Fumarate (Symbicort 80/4.5mcg -) 2 puff IH BID [facility] Last Admin: 10/05/19 09:48 Dose: 2 puff Dicyclomine HCl (Bentyl -) 10 mg PO BID [facility] Last Admin: 10/05/19 09:44 Dose: 10 mg Dorzolamide HCl (Trusopt 2%) 1 drop OU TID [facility] Last Admin: 10/05/19 09:12 Dose: 1 drp Ferrous Sulfate (Feosol -) 325 mg PO DAILY [facility] Last Admin: 10/05/19 09:43 Dose: 325 mg Ceftriaxone Sodium 1 gm/ (Dextrose) 50 mls @ 100 mls/hr IVPB DAILY [facility]; Protocol Last Admin: 10/05/19 09:43 Dose: 100 mls/hr Azithromycin 250 mg/ Dextrose 250 mls @ 250 mls/hr IVPB DAILY [facility] Last Admin: 10/04/19 12:29 Dose: 250 mls/hr Sodium Chloride (1/2 Normal Saline) 1,000 mls @ 50 mls/hr IV ASDIR [facility] Stop: 10/05/19 16:43 Last Admin: 10/04/19 17:24 Dose: 50 mls/hr Insulin Aspart (Novolog Vial Sliding Scale -) 1 vial SQ ACHS [facility]; Protocol Last Admin: 10/05/19 06:44 Dose: 6 units Insulin Detemir (Levemir Vial) 5 units SQ HS [facility] Last Admin: 10/04/19 23:06 Dose: 5 unit Metoprolol Succinate (Toprol Xl -) 12.5 mg PO BID [facility] Last Admin: 10/05/19 09:43 Dose: 12.5 mg Pantoprazole Sodium (Protonix -) 40 mg PO BID [facility] Last Admin: 10/05/19 09:44 Dose: 40 mg Pioglitazone HCl (Actos -) 15 mg PO DAILY [facility] Last Admin: 10/05/19 09:44 Dose: 15 mg Prednisone (Deltasone -) 40 mg PO DAILY [facility] Last Admin: 10/05/19 09:44 Dose: 40 mg Sitagliptin Phosphate (Januvia -) 25 mg PO ACBK [facility] Last Admin: 10/05/19 06:44 Dose: 25 mg Sodium Zirconium Cyclosilicate (Lokelma) 10 gm PO DAILY [facility] - Objective Vital Signs: Vital Signs Temperature 97.8 F 10/05/19 06:00 Pulse Rate 76 10/05/19 06:00 Respiratory Rate 18 10/05/19 06:00 Blood Pressure 145/63 10/05/19 06:00 O2 Sat by Pulse Oximetry (%) 92 L 10/04/19 21:00 Constitutional: Yes: No Distress, Calm Cardiovascular: Yes: Regular Rate and Rhythm, S1, S2 Respiratory: Yes: Regular, Rhonchi (minimal, scattered). No: Wheezes Gastrointestinal: Yes: Normal Bowel Sounds, Soft. No: Tenderness Edema: No Neurological: Yes: Alert, Oriented Labs: CBC, BMP 10/05/19 07:08 Problem List - Problems (1) Pneumonia Code(s): J18.9 - PNEUMONIA, UNSPECIFIED ORGANISM Qualifiers: Pneumonia type: due to unspecified organism Laterality: right Lung location: lower lobe of lung Qualified Code(s): J18.9 - Pneumonia, unspecified organism (2) COPD (chronic obstructive pulmonary disease) Code(s): J44.9 - CHRONIC OBSTRUCTIVE PULMONARY DISEASE, UNSPECIFIED (3) CAD (coronary artery disease) Code(s): I25.10 - ATHSCL HEART DISEASE OF [place] CORONARY ARTERY W/O ANG PCTRS (4) Diabetes mellitus Code(s): E11.9 - TYPE 2 DIABETES MELLITUS WITHOUT COMPLICATIONS (5) HLD (hyperlipidemia) Code(s): E78.5 - HYPERLIPIDEMIA, UNSPECIFIED (6) HTN (hypertension) Code(s): I10 - ESSENTIAL (PRIMARY) HYPERTENSION (7) RANDY (acute kidney injury) Code(s): N17.9 - ACUTE KIDNEY FAILURE, UNSPECIFIED (8) Tremor of both hands Code(s): R25.1 - TREMOR, UNSPECIFIED (9) Hyperkalemia Code(s): E87.5 - HYPERKALEMIA (10) Choledocholithiasis Code(s): K80.50 - CALCULUS OF BILE DUCT W/O CHOLANGITIS OR CHOLECYST W/O OBST Assessment/Plan Unclear cause of Hyperkalemia. Losartan was DC'ed (few days ago) pt on IVF. H/H is down today, no obvious signs of GIB. 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 Pulmonary, ID, Renal consults are appreciated. GI consult is appreciated (conservative management of choledocholithiasis for now). AM labs.
[2019-10-05 09:54] LABS: ALBUMIN 2.5 g/dl (3.4-5.0); BILIRUBIN,TOTAL 0.2 mg/dL (0.2-1); BLOOD UREA NITROGEN 52.9 mg/dL (7-18); CALCIUM 8.4 mg/dL (8.5-10.1); CREATININE 1.1 mg/dL (0.55-1.3); POTASSIUM 5.5 mmol/L (3.5-5.1); TOT PROT 5.3 g/dl (6.4-8.2)
[2019-10-05] MEDS: AZITHROMYCIN IVPB 250 MG in DEXTROSE 5%-WATER - 250 ML IVPB SCH (10:52)
--- NOTE | 2019-10-05 11:34 | PN ---
Progress Note (short form) - Note Progress Note: PULMONARY Denies shortness of breath, cough or wheezing. Wants to go home. No abdominal pain. Vital Signs Period Temp Pulse Resp BP Sys/Burrell Pulse Ox Last 24 Hr 97.8 F-98.6 F 69-103 18-18 131-152/59-73 92 Gen: NAD at rest Heart: RRR Lung: decreased breath sounds at the bases Abd: soft, nontender Ext: no edema CBC, BMP 10/05/19 07:08 10/05/19 07:08 Active Medications Albuterol Sulfate (Ventolin Hfa Inhaler -) 2 puff IH Q6H PRN PRN Reason: SHORT OF BREATH/WHEEZING Albuterol/Ipratropium (Duoneb -) 1 amp NEB RTID [facility] Last Admin: 10/05/19 07:35 Dose: 1 amp Aspirin (Asa -) 81 mg PO DAILY [facility] Last Admin: 10/05/19 09:44 Dose: 81 mg Atorvastatin Calcium (Lipitor -) 20 mg PO HS [facility] Last Admin: 10/04/19 23:05 Dose: 20 mg Budesonide/Formoterol Fumarate (Symbicort 80/4.5mcg -) 2 puff IH BID [facility] Last Admin: 10/05/19 09:48 Dose: 2 puff Dicyclomine HCl (Bentyl -) 10 mg PO BID [facility] Last Admin: 10/05/19 09:44 Dose: 10 mg Dorzolamide HCl (Trusopt 2%) 1 drop OU TID [facility] Last Admin: 10/05/19 09:12 Dose: 1 drp Ferrous Sulfate (Feosol -) 325 mg PO DAILY [facility] Last Admin: 10/05/19 09:43 Dose: 325 mg Ceftriaxone Sodium 1 gm/ (Dextrose) 50 mls @ 100 mls/hr IVPB DAILY [facility]; Protocol Last Admin: 10/05/19 09:43 Dose: 100 mls/hr Azithromycin 250 mg/ Dextrose 250 mls @ 250 mls/hr IVPB DAILY [facility] Last Admin: 10/05/19 10:52 Dose: 250 mls/hr Sodium Chloride (1/2 Normal Saline) 1,000 mls @ 50 mls/hr IV ASDIR [facility] Stop: 10/05/19 16:43 Last Admin: 10/04/19 17:24 Dose: 50 mls/hr Insulin Aspart (Novolog Vial Sliding Scale -) 1 vial SQ ACHS [facility]; Protocol Last Admin: 10/05/19 06:44 Dose: 6 units Insulin Detemir (Levemir Vial) 5 units SQ HS [facility] Last Admin: 10/04/19 23:06 Dose: 5 unit Metoprolol Succinate (Toprol Xl -) 12.5 mg PO BID [facility] Last Admin: 10/05/19 09:43 Dose: 12.5 mg Pantoprazole Sodium (Protonix -) 40 mg PO BID [facility] Last Admin: 10/05/19 09:44 Dose: 40 mg Pioglitazone HCl (Actos -) 15 mg PO DAILY [facility] Last Admin: 10/05/19 09:44 Dose: 15 mg Prednisone (Deltasone -) 40 mg PO DAILY [facility] Last Admin: 10/05/19 09:44 Dose: 40 mg Sitagliptin Phosphate (Januvia -) 25 mg PO ACBK [facility] Last Admin: 10/05/19 06:44 Dose: 25 mg Sodium Zirconium Cyclosilicate (Lokelma) 10 gm PO DAILY [facility] A/P Pneumonia Acute COPD Exacerbation Chronic Hypoxic Respiratory Failure CAD HTN DM Hyperlipidemia h/o CVA Anemia - GI w/u in progress - complete antibiotic course - prednisone taper - inhaled bronchodilators - O2 to keep SpO2 >90% - DVT prophylaxis
[2019-10-05] MEDS: SODIUM ZIRCONIUM CYCLOSILICATE (LOKELMA) 5 GM PACKET PO SCH (11:51)
[2019-10-05 12:20] LABS: ANISOCYTOSIS 3+; MACROCYTOSIS 1+; OVALOCYTE 1+; PLATELET ESTIMATE NORMAL; TEAR DROP CELLS 1+
[2019-10-05] MEDS ORDERED: PT OWN MED DRAWER 7, Y5N ONE ×2 (12:38→22:00)
[2019-10-05 13:40] LABS: ERYTHROCYTE SEDIMENTATION RATE 14 mm/hr (0-30)
--- NOTE | 2019-10-05 15:13 | PN ---
Progress Note (short form) - Note Progress Note: Renal follow up for RANDY and hyperkalemia Seen and examined at the bedside awake and alert offers no acute complaints denies any sob, cp, fever, chills, N/V/D making urine Vital Signs Temperature 99.0 F 10/05/19 10:00 Pulse Rate 85 10/05/19 10:00 Respiratory Rate 18 10/05/19 10:00 Blood Pressure 94/48 L 10/05/19 10:00 O2 Sat by Pulse Oximetry (%) 97 10/05/19 10:00 Intake & Output 10/02/19 10/03/19 10/04/19 10/05/19 23:59 23:59 23:59 23:59 Intake Total 2550 2110 865 700 Balance 2550 2110 865 700 Weight 63.701 kg NAD awake and alert RRR CTA soft NT/ND no LE edema CBC, BMP 10/05/19 07:08 10/05/19 07:08 Current Medications Albuterol Sulfate (Ventolin Hfa Inhaler -) 2 puff IH Q6H PRN PRN Reason: SHORT OF BREATH/WHEEZING Albuterol/Ipratropium (Duoneb -) 1 amp NEB RTID [facility] Last Admin: 10/05/19 14:33 Dose: 1 amp Aspirin (Asa -) 81 mg PO DAILY [facility] Last Admin: 10/05/19 09:44 Dose: 81 mg Atorvastatin Calcium (Lipitor -) 20 mg PO HS [facility] Last Admin: 10/04/19 23:05 Dose: 20 mg Budesonide/Formoterol Fumarate (Symbicort 80/4.5mcg -) 2 puff IH BID [facility] Last Admin: 10/05/19 09:48 Dose: 2 puff Dicyclomine HCl (Bentyl -) 10 mg PO BID [facility] Last Admin: 10/05/19 09:44 Dose: 10 mg Dorzolamide HCl (Trusopt 2%) 1 drop OU TID [facility] Last Admin: 10/05/19 15:08 Dose: 1 drop Ferrous Sulfate (Feosol -) 325 mg PO DAILY [facility] Last Admin: 10/05/19 09:43 Dose: 325 mg Ceftriaxone Sodium 1 gm/ (Dextrose) 50 mls @ 100 mls/hr IVPB DAILY [facility]; Protocol Last Admin: 10/05/19 09:43 Dose: 100 mls/hr Azithromycin 250 mg/ Dextrose 250 mls @ 250 mls/hr IVPB DAILY [facility] Last Admin: 10/05/19 10:52 Dose: 250 mls/hr Sodium Chloride (1/2 Normal Saline) 1,000 mls @ 50 mls/hr IV ASDIR [facility] Stop: 10/05/19 16:43 Last Admin: 10/04/19 17:24 Dose: 50 mls/hr Insulin Aspart (Novolog Vial Sliding Scale -) 1 vial SQ ACHS [facility]; Protocol Last Admin: 10/05/19 11:55 Dose: 8 units Insulin Detemir (Levemir Vial) 5 units SQ HS [facility] Last Admin: 10/04/19 23:06 Dose: 5 unit Metoprolol Succinate (Toprol Xl -) 12.5 mg PO BID [facility] Last Admin: 10/05/19 09:43 Dose: 12.5 mg Pantoprazole Sodium (Protonix -) 40 mg PO BID [facility] Last Admin: 10/05/19 09:44 Dose: 40 mg Pioglitazone HCl (Actos -) 15 mg PO DAILY [facility] Last Admin: 10/05/19 09:44 Dose: 15 mg Prednisone (Deltasone -) 40 mg PO DAILY [facility] Last Admin: 10/05/19 09:44 Dose: 40 mg Sitagliptin Phosphate (Januvia -) 25 mg PO ACBK [facility] Last Admin: 10/05/19 06:44 Dose: 25 mg Sodium Zirconium Cyclosilicate (Lokelma) 10 gm PO DAILY [facility] Last Admin: 10/05/19 11:51 Dose: 10 gm 79 year old woman with history of CKD stage 3, hypertension, DM Type 2, CAD, anemia presented with SOB and cough and admitted for PNA. 1. RANDY on CKD 2. CKD 3. PNA 4. Hypertension 5. Hyperkalemia 6. Anemia Renal function improved and stable. Potassium remains high. Change diet to low potassium. Continue Lokelama daily for now. continue antibiotics as per primary team Trend renal function and electrolytes daily. Dillon Ortega DO
[2019-10-05] MEDS ORDERED: ALPRAZolam 0.25 MG TABLET PO PRN (17:01)
[2019-10-05] MEDS ORDERED: INSULIN (NOVOLOG) ASPART 100 UNITS/ML 10ML VIAL ONE (17:28)
[2019-10-05] MEDS: ATORVASTATIN CA 20 MG TABLET (FP) PO SCH (22:03)
[2019-10-05] MEDS: INSULIN (LEVEMIR) 100 UNITS/ML UNITS SQ SCH (22:06)
[2019-10-06] MEDS: INSULIN SLIDING SCALE (NOVOLOG) 1 VIAL SQ SCH ×4 (06:34→23:18)
[2019-10-06 08:09] LABS: HEMATOCRIT 25.7 % (32.4-45.2); HEMOGLOBIN 8.4 GM/dL (10.7-15.3); MCH 29.5 pg (25.7-33.7); MCHC 32.7 g/dl (32.0-36.0); MEAN CELL VOLUME 90.2 fl (80-96); MEAN PLT VOLUME 7.9 fl (7.5-11.1); PLATELET COUNT 353 K/MM3 (134-434); RBC 2.85 M/mm3 (3.60-5.2); RDW 15.7 % (11.6-15.6); WHITE BLOOD COUNT 6.8 K/mm3 (4.0-10.0)
[2019-10-06] MEDS: ALBUTEROL SO4 2.5/IPRATROPIUM 0.5 INH SOL 3 ML VIAL.NEB. NEB SCH ×3 (08:15→20:06)
[2019-10-06 08:56] LABS: ALBUMIN 2.7 g/dl (3.4-5.0); BILIRUBIN,TOTAL 0.1 mg/dL (0.2-1); BLOOD UREA NITROGEN 41.6 mg/dL (7-18); CALCIUM 8.5 mg/dL (8.5-10.1); CREATININE 0.8 mg/dL (0.55-1.3); MAGNESIUM 1.9 mg/dL (1.8-2.4); PHOSPHOROUS 2.9 mg/dL (2.5-4.9); TOT PROT 5.4 g/dl (6.4-8.2)
[2019-10-06] MEDS: DORZOLAMIDE 2% HCL OPHTHALMIC SOLUTION 10 ML BOTTLE OU SCH ×3 (09:07→23:15)
--- NOTE | 2019-10-06 09:11 | PN ---
Progress Note, Physician History of Present Illness: GI FOLLOW UP NOTE Patient examined and case discussed with Dr Feng Patient denies complaints of abdominal pain, nausea, vomiting, diarrhea, constipation, rectal bleeding. She had MRCP done yesterday and results from [facility] shows intra-axial hepatic biliary ductal dilatation with a large amount of low signal in the proximal half the common hepatic duct, throughout the common bile duct down tothe level of the duodenum, the low signal on all sequences could represent stones, dense milk of calcium or gas. - Current Medication List Current Medications: Active Medications Albuterol Sulfate (Ventolin Hfa Inhaler -) 2 puff IH Q6H PRN PRN Reason: SHORT OF BREATH/WHEEZING Albuterol/Ipratropium (Duoneb -) 1 amp NEB RTID [facility] Last Admin: 10/06/19 08:15 Dose: 1 amp Alprazolam (Xanax -) 0.25 mg PO Q8H PRN PRN Reason: ANXIETY Aspirin (Asa -) 81 mg PO DAILY [facility] Last Admin: 10/05/19 09:44 Dose: 81 mg Atorvastatin Calcium (Lipitor -) 20 mg PO HS [facility] Last Admin: 10/05/19 22:03 Dose: 20 mg Budesonide/Formoterol Fumarate (Symbicort 80/4.5mcg -) 2 puff IH BID [facility] Last Admin: 10/05/19 22:06 Dose: 2 puff Dicyclomine HCl (Bentyl -) 10 mg PO BID [facility] Last Admin: 10/05/19 22:03 Dose: 10 mg Dorzolamide HCl (Trusopt 2%) 1 drop OU TID [facility] Last Admin: 10/05/19 22:08 Dose: 1 drop Ferrous Sulfate (Feosol -) 325 mg PO DAILY [facility] Last Admin: 10/05/19 09:43 Dose: 325 mg Ceftriaxone Sodium 1 gm/ (Dextrose) 50 mls @ 100 mls/hr IVPB DAILY [facility]; Protocol Last Admin: 10/05/19 09:43 Dose: 100 mls/hr Azithromycin 250 mg/ Dextrose 250 mls @ 250 mls/hr IVPB DAILY [facility] Last Admin: 10/05/19 10:52 Dose: 250 mls/hr Insulin Aspart (Novolog Vial Sliding Scale -) 1 vial SQ ACHS [facility]; Protocol Last Admin: 10/06/19 06:34 Dose: Not Given Insulin Detemir (Levemir Vial) 8 units SQ HS [facility] Last Admin: 10/05/19 22:06 Dose: 8 units Metoprolol Succinate (Toprol Xl -) 12.5 mg PO BID [facility] Last Admin: 10/05/19 22:03 Dose: 12.5 mg Pantoprazole Sodium (Protonix -) 40 mg PO BID [facility] Last Admin: 10/05/19 22:03 Dose: 40 mg Pioglitazone HCl (Actos -) 15 mg PO DAILY [facility] Last Admin: 10/05/19 09:44 Dose: 15 mg Prednisone (Deltasone -) 40 mg PO DAILY [facility] Last Admin: 10/05/19 09:44 Dose: 40 mg Sitagliptin Phosphate (Januvia -) 25 mg PO ACBK [facility] Last Admin: 10/06/19 06:33 Dose: 25 mg Sodium Zirconium Cyclosilicate (Lokelma) 10 gm PO DAILY [facility] Last Admin: 10/05/19 11:51 Dose: 10 gm - Objective Vital Signs: Vital Signs Temperature 98.4 F 10/06/19 05:00 Pulse Rate 62 10/06/19 05:00 Respiratory Rate 18 10/06/19 05:00 Blood Pressure 139/68 10/06/19 05:00 O2 Sat by Pulse Oximetry (%) 100 10/06/19 05:00 Constitutional: Yes: No Distress, Calm Eyes: Yes: Conjunctiva Clear HENT: Yes: Atraumatic Cardiovascular: Yes: Regular Rate and Rhythm Respiratory: Yes: Regular, CTA Bilaterally Gastrointestinal: Yes: Normal Bowel Sounds, Soft Neurological: Yes: Alert, Oriented Psychiatric: Yes: Alert, Oriented Labs: CBC, BMP 10/06/19 07:38 10/06/19 07:38 Problem List - Problems (1) Dilated bile duct Assessment/Plan: Chest CT shows dilatation of of the included common hepatic and common bile duct there are tiny hyperdensities layering within the included portion of the common bile duct suspicious for tiny stones MRCP results from [facility] reviewed Code(s): K83.8 - OTHER SPECIFIED DISEASES OF BILIARY TRACT
--- NOTE | 2019-10-06 09:52 | PN ---
Progress Note, Physician History of Present Illness: Pt breathing is getting better, cough improved. Pt w/o CP, palpitations, abd pain, nausea, vomiting. Pt is anxious at times. - Current Medication List Current Medications: Active Medications Albuterol Sulfate (Ventolin Hfa Inhaler -) 2 puff IH Q6H PRN PRN Reason: SHORT OF BREATH/WHEEZING Albuterol/Ipratropium (Duoneb -) 1 amp NEB RTID [facility] Last Admin: 10/06/19 08:15 Dose: 1 amp Alprazolam (Xanax -) 0.25 mg PO Q8H PRN PRN Reason: ANXIETY Aspirin (Asa -) 81 mg PO DAILY [facility] Last Admin: 10/05/19 09:44 Dose: 81 mg Atorvastatin Calcium (Lipitor -) 20 mg PO HS [facility] Last Admin: 10/05/19 22:03 Dose: 20 mg Budesonide/Formoterol Fumarate (Symbicort 80/4.5mcg -) 2 puff IH BID [facility] Last Admin: 10/05/19 22:06 Dose: 2 puff Dicyclomine HCl (Bentyl -) 10 mg PO BID [facility] Last Admin: 10/05/19 22:03 Dose: 10 mg Dorzolamide HCl (Trusopt 2%) 1 drop OU TID [facility] Last Admin: 10/06/19 09:07 Dose: 1 drop Ferrous Sulfate (Feosol -) 325 mg PO DAILY [facility] Last Admin: 10/05/19 09:43 Dose: 325 mg Ceftriaxone Sodium 1 gm/ (Dextrose) 50 mls @ 100 mls/hr IVPB DAILY [facility]; Protocol Last Admin: 10/05/19 09:43 Dose: 100 mls/hr Azithromycin 250 mg/ Dextrose 250 mls @ 250 mls/hr IVPB DAILY [facility] Last Admin: 10/05/19 10:52 Dose: 250 mls/hr Insulin Aspart (Novolog Vial Sliding Scale -) 1 vial SQ ACHS [facility]; Protocol Last Admin: 10/06/19 06:34 Dose: Not Given Insulin Detemir (Levemir Vial) 8 units SQ HS [facility] Last Admin: 10/05/19 22:06 Dose: 8 units Metoprolol Succinate (Toprol Xl -) 12.5 mg PO BID [facility] Last Admin: 10/05/19 22:03 Dose: 12.5 mg Pantoprazole Sodium (Protonix -) 40 mg PO BID [facility] Last Admin: 10/05/19 22:03 Dose: 40 mg Pioglitazone HCl (Actos -) 15 mg PO DAILY [facility] Last Admin: 10/05/19 09:44 Dose: 15 mg Prednisone (Deltasone -) 40 mg PO DAILY [facility] Last Admin: 10/05/19 09:44 Dose: 40 mg Sitagliptin Phosphate (Januvia -) 25 mg PO ACBK [facility] Last Admin: 10/06/19 06:33 Dose: 25 mg Sodium Zirconium Cyclosilicate (Lokelma) 10 gm PO DAILY [facility] Last Admin: 10/05/19 11:51 Dose: 10 gm - Objective Vital Signs: Vital Signs Temperature 98.4 F 10/06/19 05:00 Pulse Rate 62 10/06/19 05:00 Respiratory Rate 18 10/06/19 05:00 Blood Pressure 139/68 10/06/19 05:00 O2 Sat by Pulse Oximetry (%) 100 10/06/19 05:00 Constitutional: Yes: No Distress, Calm Cardiovascular: Yes: Regular Rate and Rhythm, S1, S2 Respiratory: Yes: Regular, CTA Bilaterally, Rhonchi (minimal, scattered) Gastrointestinal: Yes: Normal Bowel Sounds, Soft. No: Tenderness Edema: No Neurological: Yes: Alert, Oriented Labs: CBC, BMP 10/06/19 07:38 10/06/19 07:38 Problem List - Problems (1) Pneumonia Code(s): J18.9 - PNEUMONIA, UNSPECIFIED ORGANISM Qualifiers: Pneumonia type: due to unspecified organism Laterality: right Lung location: lower lobe of lung Qualified Code(s): J18.9 - Pneumonia, unspecified organism (2) COPD (chronic obstructive pulmonary disease) Code(s): J44.9 - CHRONIC OBSTRUCTIVE PULMONARY DISEASE, UNSPECIFIED (3) CAD (coronary artery disease) Code(s): I25.10 - ATHSCL HEART DISEASE OF [place] CORONARY ARTERY W/O ANG PCTRS (4) Diabetes mellitus Code(s): E11.9 - TYPE 2 DIABETES MELLITUS WITHOUT COMPLICATIONS (5) HLD (hyperlipidemia) Code(s): E78.5 - HYPERLIPIDEMIA, UNSPECIFIED (6) HTN (hypertension) Code(s): I10 - ESSENTIAL (PRIMARY) HYPERTENSION (7) RANDY (acute kidney injury) Code(s): N17.9 - ACUTE KIDNEY FAILURE, UNSPECIFIED (8) Tremor of both hands Code(s): R25.1 - TREMOR, UNSPECIFIED (9) Hyperkalemia Code(s): E87.5 - HYPERKALEMIA (10) Choledocholithiasis Code(s): K80.50 - CALCULUS OF BILE DUCT W/O CHOLANGITIS OR CHOLECYST W/O OBST Assessment/Plan Unclear cause of Hyperkalemia; K is better today. Losartan was DC'ed (few days ago) Pt is off IVF. H/H is today is trending up, no obvious signs of GIB. 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 Metformin was DC'ed secondary to RANDY. Endo consult IV abtx PO steroids. Pulmonary, ID, Renal consults are appreciated. GI consult is appreciated (conservative management of choledocholithiasis for now). To f/u MRCP. Pt's condition was reviewed last night with both pt's daughter ( on the phone), with pt's consent; all questions were answered, over 25 minutes were spent with both daughter on the phone. AM labs.
[2019-10-06] MEDS ORDERED: cefTRIAXone SODIUM 1 GM VIAL ONE (10:36)
[2019-10-06] MEDS ORDERED: PT OWN MED DRAWER 7, Y5N ONE ×2 (10:36→11:44)
[2019-10-06] MEDS ORDERED: DEXTROSE 5%-WATER - 50 ML IVPB ONE (10:36)
[2019-10-06] MEDS: metoPROLOL SUCCINATE 25 MG TAB.SR.24H (FP) PO SCH ×2 (10:55→23:13)
[2019-10-06] MEDS: ASPIRIN 81 MG CHEWABLE TABLETS PO SCH (10:55)
[2019-10-06] MEDS: predniSONE 20 MG TABLET (UD) PO SCH (10:55)
[2019-10-06] MEDS: PANTOPRAZOLE 40 MG TABLET PO SCH ×2 (10:55→23:12)
[2019-10-06] MEDS: BUDESONIDE/FORMETEROL FUMARATE 80/4.5 mcg INHALER IH SCH ×2 (10:56→23:15)
[2019-10-06] MEDS: CEFTRIAXONE 1 GM in DEXTROSE 5%-WATER - 50 ML IVPB SCH (10:56)
[2019-10-06] MEDS: FERROUS SO4 325 MG TABLET (FP) PO SCH (10:56)
[2019-10-06] MEDS: PIOGLITAZONE HCL 15 MG TABLET PO SCH (10:57)
[2019-10-06] MEDS: DICYCLOMINE HCL 10 MG CAPSULE PO SCH ×2 (10:57→23:12)
[2019-10-06] MEDS: AZITHROMYCIN IVPB 250 MG in DEXTROSE 5%-WATER - 250 ML IVPB SCH (11:54)
--- NOTE | 2019-10-06 12:29 | PN ---
Progress Note, Physician History of Present Illness: pulmonary alert,comfortable,sob improving - Current Medication List Current Medications: Active Medications Albuterol Sulfate (Ventolin Hfa Inhaler -) 2 puff IH Q6H PRN PRN Reason: SHORT OF BREATH/WHEEZING Albuterol/Ipratropium (Duoneb -) 1 amp NEB RTID [facility] Last Admin: 10/06/19 08:15 Dose: 1 amp Alprazolam (Xanax -) 0.25 mg PO Q8H PRN PRN Reason: ANXIETY Aspirin (Asa -) 81 mg PO DAILY [facility] Last Admin: 10/06/19 10:55 Dose: 81 mg Atorvastatin Calcium (Lipitor -) 20 mg PO HS [facility] Last Admin: 10/05/19 22:03 Dose: 20 mg Budesonide/Formoterol Fumarate (Symbicort 80/4.5mcg -) 2 puff IH BID [facility] Last Admin: 10/06/19 10:56 Dose: 2 puff Dicyclomine HCl (Bentyl -) 10 mg PO BID [facility] Last Admin: 10/06/19 10:57 Dose: 10 mg Dorzolamide HCl (Trusopt 2%) 1 drop OU TID [facility] Last Admin: 10/06/19 09:07 Dose: 1 drop Ferrous Sulfate (Feosol -) 325 mg PO DAILY [facility] Last Admin: 10/06/19 10:56 Dose: 325 mg Ceftriaxone Sodium 1 gm/ (Dextrose) 50 mls @ 100 mls/hr IVPB DAILY [facility]; Protocol Last Admin: 10/06/19 10:56 Dose: 100 mls/hr Azithromycin 250 mg/ Dextrose 250 mls @ 250 mls/hr IVPB DAILY [facility] Last Admin: 10/06/19 11:54 Dose: 250 mls/hr Insulin Aspart (Novolog Vial Sliding Scale -) 1 vial SQ ACHS [facility]; Protocol Last Admin: 10/06/19 11:52 Dose: 8 units Insulin Detemir (Levemir Vial) 8 units SQ [facility] Last Admin: 10/05/19 22:06 Dose: 8 units Metoprolol Succinate (Toprol Xl -) 12.5 mg PO BID [facility] Last Admin: 10/06/19 10:55 Dose: 12.5 mg Pantoprazole Sodium (Protonix -) 40 mg PO BID [facility] Last Admin: 10/06/19 10:55 Dose: 40 mg Pioglitazone HCl (Actos -) 15 mg PO DAILY [facility] Last Admin: 10/06/19 10:57 Dose: 15 mg Prednisone (Deltasone -) 40 mg PO DAILY [facility] Last Admin: 10/06/19 10:55 Dose: 40 mg Sitagliptin Phosphate (Januvia -) 25 mg PO ACBK [facility] Last Admin: 10/06/19 06:33 Dose: 25 mg - Objective Vital Signs: Vital Signs Temperature 98.1 F 10/06/19 10:48 Pulse Rate 74 10/06/19 10:48 Respiratory Rate 24 H 10/06/19 10:48 Blood Pressure 139/61 10/06/19 10:48 O2 Sat by Pulse Oximetry (%) 100 10/06/19 05:00 Constitutional: Yes: Well Nourished, Calm Eyes: Yes: WNL HENT: Yes: WNL Neck: Yes: WNL Cardiovascular: Yes: Regular Rate and Rhythm, S1, S2 Respiratory: Yes: CTA Bilaterally Gastrointestinal: Yes: Normal Bowel Sounds, Soft Extremities: Yes: WNL Edema: No Labs: CBC, BMP 10/06/19 07:38 10/06/19 07:38 Assessment/Plan Problem List - Problems (1) Pneumonia Code(s): J18.9 - PNEUMONIA, UNSPECIFIED ORGANISM Qualifiers: Pneumonia type: due to unspecified organism Laterality: right Lung location: lower lobe of lung Qualified Code(s): J18.9 - Pneumonia, unspecified organism (2) Anemia Code(s): D64.9 - ANEMIA, UNSPECIFIED Qualifiers: Anemia type: unspecified type Qualified Code(s): D64.9 - Anemia, unspecified (3) Chronic renal insufficiency Code(s): N18.9 - CHRONIC KIDNEY DISEASE, UNSPECIFIED (4) MCDANIEL (dyspnea on exertion) Code(s): R06.09 - OTHER FORMS OF DYSPNEA (5) Presence of stent in coronary artery in patient with coronary artery disease Code(s): I25.10 - ATHSCL HEART DISEASE OF [place] CORONARY ARTERY W/O ANG PCTRS; Z95.5 - PRESENCE OF CORONARY ANGIOPLASTY IMPLANT AND GRAFT (6) Retinopathy due to secondary diabetes Code(s): E13.319 - OTH DIABETES W UNSP DIABETIC RETINOPATHY W/O MACULAR EDEMA (7) SOB (shortness of breath) Code(s): R06.02 - SHORTNESS OF BREATH (8) CAD (coronary artery disease) Code(s): I25.10 - ATHSCL HEART DISEASE OF [place] CORONARY ARTERY W/O ANG PCTRS (9) COPD (chronic obstructive pulmonary disease) Code(s): J44.9 - CHRONIC OBSTRUCTIVE PULMONARY DISEASE, UNSPECIFIED (10) Diabetes mellitus Code(s): E11.9 - TYPE 2 DIABETES MELLITUS WITHOUT COMPLICATIONS (11) HLD (hyperlipidemia) Code(s): E78.5 - HYPERLIPIDEMIA, UNSPECIFIED (12) HTN (hypertension) Code(s): I10 - ESSENTIAL (PRIMARY) HYPERTENSION HTPERKALEMIA CORRECTED Assessment/Plan Rocephin / Zithromax BD TX standing and PRN prednisone No smoking was counseled monitor lytes,renal function,k DR ALMAGUER
[2019-10-06] MEDS: SODIUM ZIRCONIUM CYCLOSILICATE (LOKELMA) 5 GM PACKET PO SCH (12:30)
[2019-10-06 15:25] VITALS: BMI 25.6
--- NOTE | 2019-10-06 16:58 | PN ---
Progress Note (short form) - Note Progress Note: Renal follow up for RANDY and hyperkalemia Seen and examined at the bedside awake and alert offers no acute complaints denies any sob, cp, fever, chills, N/V/D Vital Signs Temperature 98.9 F 10/06/19 14:00 Pulse Rate 84 10/06/19 14:00 Respiratory Rate 18 10/06/19 14:00 Blood Pressure 107/50 L 10/06/19 14:00 O2 Sat by Pulse Oximetry (%) 100 10/06/19 05:00 Intake & Output 10/03/19 10/04/19 10/05/19 10/06/19 23:59 23:59 23:59 23:59 Intake Total 2110 865 1500 300 Balance 2110 865 1500 300 Weight 63.701 kg 63.503 kg NAD awake and alert RRR CTA soft NT/ND no LE edema CBC, BMP 10/06/19 07:38 10/06/19 07:38 Current Medications Albuterol Sulfate (Ventolin Hfa Inhaler -) 2 puff IH Q6H PRN PRN Reason: SHORT OF BREATH/WHEEZING Albuterol/Ipratropium (Duoneb -) 1 amp NEB RTID [facility] Last Admin: 10/06/19 13:53 Dose: 1 amp Alprazolam (Xanax -) 0.25 mg PO Q8H PRN PRN Reason: ANXIETY Aspirin (Asa -) 81 mg PO DAILY [facility] Last Admin: 10/06/19 10:55 Dose: 81 mg Atorvastatin Calcium (Lipitor -) 20 mg PO HS [facility] Last Admin: 10/05/19 22:03 Dose: 20 mg Budesonide/Formoterol Fumarate (Symbicort 80/4.5mcg -) 2 puff IH BID [facility] Last Admin: 10/06/19 10:56 Dose: 2 puff Dicyclomine HCl (Bentyl -) 10 mg PO BID [facility] Last Admin: 10/06/19 10:57 Dose: 10 mg Dorzolamide HCl (Trusopt 2%) 1 drop OU TID [facility] Last Admin: 10/06/19 15:43 Dose: 1 drop Ferrous Sulfate (Feosol -) 325 mg PO DAILY [facility] Last Admin: 10/06/19 10:56 Dose: 325 mg Ceftriaxone Sodium 1 gm/ (Dextrose) 50 mls @ 100 mls/hr IVPB DAILY [facility]; Protocol Last Admin: 10/06/19 10:56 Dose: 100 mls/hr Azithromycin 250 mg/ Dextrose 250 mls @ 250 mls/hr IVPB DAILY [facility] Last Admin: 10/06/19 11:54 Dose: 250 mls/hr Insulin Aspart (Novolog Vial Sliding Scale -) 1 vial SQ ACHS [facility]; Protocol Last Admin: 10/06/19 16:21 Dose: 8 units Insulin Detemir (Levemir Vial) 8 units SQ HS [facility] Last Admin: 10/05/19 22:06 Dose: 8 units Metoprolol Succinate (Toprol Xl -) 12.5 mg PO BID [facility] Last Admin: 10/06/19 10:55 Dose: 12.5 mg Pantoprazole Sodium (Protonix -) 40 mg PO BID [facility] Last Admin: 10/06/19 10:55 Dose: 40 mg Pioglitazone HCl (Actos -) 15 mg PO DAILY [facility] Last Admin: 10/06/19 10:57 Dose: 15 mg Prednisone (Deltasone -) 40 mg PO DAILY [facility] Last Admin: 10/06/19 10:55 Dose: 40 mg Sitagliptin Phosphate (Januvia -) 25 mg PO ACBK [facility] Last Admin: 10/06/19 06:33 Dose: 25 mg 79 year old woman with history of CKD stage 3, hypertension, DM Type 2, CAD, anemia presented with SOB and cough and admitted for PNA. 1. RANDY on CKD 2. CKD 3. PNA 4. Hypertension 5. Hyperkalemia 6. Anemia Renal function improved and stable. K is improved s/p Lokelma yesterday diet changed to low potassium and pt educated by nutrition today Trend K on low K diet alone D/C Lokelma Continue Lokelama daily for now. continue antibiotics as per primary team Trend renal function and electrolytes daily. Dillon Ortega DO
[2019-10-06] MEDS: ATORVASTATIN CA 20 MG TABLET (FP) PO SCH (23:11)
[2019-10-06] MEDS: INSULIN (LEVEMIR) 100 UNITS/ML UNITS SQ SCH (23:12)
[2019-10-07] MEDS: INSULIN SLIDING SCALE (NOVOLOG) 1 VIAL SQ SCH ×4 (06:36→22:52)
[2019-10-07] MEDS: ALBUTEROL SO4 2.5/IPRATROPIUM 0.5 INH SOL 3 ML VIAL.NEB. NEB SCH ×3 (07:25→20:23)
[2019-10-07 08:14] LABS: HEMATOCRIT 24.5 % (32.4-45.2); HEMOGLOBIN 7.9 GM/dL (10.7-15.3); MCH 29.6 pg (25.7-33.7); MCHC 32.2 g/dl (32.0-36.0); MEAN CELL VOLUME 91.9 fl (80-96); MEAN PLT VOLUME 7.8 fl (7.5-11.1); PLATELET COUNT 342 K/MM3 (134-434); RBC 2.67 M/mm3 (3.60-5.2); RDW 16.2 % (11.6-15.6); WHITE BLOOD COUNT 8.4 K/mm3 (4.0-10.0)
--- NOTE | 2019-10-07 08:21 | PN ---
Progress Note (short form) - Note Progress Note: Discussed case with Dr Feng. Dr Feng discussed MRCP findings and pneumophilia secondary to previous ERCP. In abscence of any GI symtpoms and normal liver enzymes it is highly unlikely there is biliary enteric fistula. Problem List - Problems (1) Dilated bile duct Code(s): K83.8 - OTHER SPECIFIED DISEASES OF BILIARY TRACT
--- NOTE | 2019-10-07 09:05 | PN ---
Progress Note, Physician Chief Complaint: awake alert NAD feeling better; taper po steroids; IV ATB for 1 more day high GLU b/o steroids; endocrine eval - Current Medication List Current Medications: Active Medications Albuterol Sulfate (Ventolin Hfa Inhaler -) 2 puff IH Q6H PRN PRN Reason: SHORT OF BREATH/WHEEZING Albuterol/Ipratropium (Duoneb -) 1 amp NEB RTID [facility] Last Admin: 10/07/19 07:25 Dose: 1 amp Alprazolam (Xanax -) 0.25 mg PO Q8H PRN PRN Reason: ANXIETY Aspirin (Asa -) 81 mg PO DAILY [facility] Last Admin: 10/06/19 10:55 Dose: 81 mg Atorvastatin Calcium (Lipitor -) 20 mg PO HS [facility] Last Admin: 10/06/19 23:11 Dose: 20 mg Budesonide/Formoterol Fumarate (Symbicort 80/4.5mcg -) 2 puff IH BID [facility] Last Admin: 10/06/19 23:15 Dose: 2 puff Dicyclomine HCl (Bentyl -) 10 mg PO BID [facility] Last Admin: 10/06/19 23:12 Dose: 10 mg Dorzolamide HCl (Trusopt 2%) 1 drop OU TID [facility] Last Admin: 10/06/19 23:15 Dose: 1 drop Ferrous Sulfate (Feosol -) 325 mg PO DAILY [facility] Last Admin: 10/06/19 10:56 Dose: 325 mg Ceftriaxone Sodium 1 gm/ (Dextrose) 50 mls @ 100 mls/hr IVPB DAILY [facility]; Protocol Last Admin: 10/06/19 10:56 Dose: 100 mls/hr Azithromycin 250 mg/ Dextrose 250 mls @ 250 mls/hr IVPB DAILY [facility] Last Admin: 10/06/19 11:54 Dose: 250 mls/hr Insulin Aspart (Novolog Vial Sliding Scale -) 1 vial SQ [facility]; Protocol Last Admin: 10/07/19 06:36 Dose: 2 units Insulin Detemir (Levemir Vial) 8 units SQ HS [facility] Last Admin: 10/06/19 23:12 Dose: 8 units Metoprolol Succinate (Toprol Xl -) 12.5 mg PO BID [facility] Last Admin: 10/06/19 23:13 Dose: 12.5 mg Pantoprazole Sodium (Protonix -) 40 mg PO BID [facility] Last Admin: 10/06/19 23:12 Dose: 40 mg Pioglitazone HCl (Actos -) 15 mg PO DAILY [facility] Last Admin: 10/06/19 10:57 Dose: 15 mg Prednisone (Deltasone -) 40 mg PO DAILY [facility] Last Admin: 10/06/19 10:55 Dose: 40 mg Sitagliptin Phosphate (Januvia -) 25 mg PO ACBK [facility] Last Admin: 10/07/19 06:36 Dose: 25 mg - Objective Vital Signs: Vital Signs Temperature 97.4 F L 10/07/19 06:00 Pulse Rate 71 10/07/19 06:00 Respiratory Rate 18 10/07/19 06:00 Blood Pressure 137/55 L 10/07/19 06:00 O2 Sat by Pulse Oximetry (%) 97 10/06/19 10:50 Constitutional: Yes: No Distress, Calm Eyes: Yes: Conjunctiva Clear HENT: Yes: Atraumatic Neck: Yes: Supple Cardiovascular: Yes: Regular Rate and Rhythm Respiratory: Yes: Diminished Gastrointestinal: Yes: Soft. No: Tenderness Genitourinary: No: Hematuria Musculoskeletal: No: Joint Stiffness, Joint Swelling Extremities: No: Cold, Cool, Cyanosis Edema: No Integumentary: No: Rash, Venous Stasis Changes Neurological: Yes: Alert, Oriented ...Motor Strength: WNL Psychiatric: Yes: Alert, Oriented. No: Agitated, Suicidal Ideation Labs: CBC, BMP 10/07/19 07:45 - ....Imaging Other: Report Reviewed Assessment/Plan The patient is a 79 year old female, with PMH of DM, HTN, COPD (Home O2), CVA, CAD, AK s/p stents, SBO, asthma, symptomatic anemia, and biliary sepsis s/p ERSP , admitted with PNA; also anemia; developed ARF and hyperK; consults appreciated ; IV ATB; s/p kayexalate f/u labs, cultures anemia, heme and GI f/u - d/w GI dr Feng so far stable no further w/u inpt; can be f/u outpt at [facility] with GI - d/w pt and daughter high GLU endocrine eval; taper steroids; restart DM pills meds; ADA diet d/w t and daughter cont meds; falls DVT pfx d/w pt and staff
[2019-10-07] MEDS: DORZOLAMIDE 2% HCL OPHTHALMIC SOLUTION 10 ML BOTTLE OU SCH ×3 (09:07→22:46)
[2019-10-07] MEDS ORDERED: PT OWN MED DRAWER 7, Y5N ONE ×2 (09:25→16:13)
[2019-10-07] MEDS ORDERED: DEXTROSE 5%-WATER - 50 ML IVPB ONE (09:26)
[2019-10-07] MEDS ORDERED: cefTRIAXone SODIUM 1 GM VIAL ONE (09:26)
[2019-10-07] MEDS: CEFTRIAXONE 1 GM in DEXTROSE 5%-WATER - 50 ML IVPB SCH (09:28)
[2019-10-07] MEDS: FERROUS SO4 325 MG TABLET (FP) PO SCH (09:32)
[2019-10-07] MEDS: predniSONE 20 MG TABLET (UD) PO SCH (09:32)
[2019-10-07] MEDS: PANTOPRAZOLE 40 MG TABLET PO SCH ×2 (09:32→23:06)
[2019-10-07] MEDS: DICYCLOMINE HCL 10 MG CAPSULE PO SCH ×2 (09:32→22:44)
[2019-10-07] MEDS: ASPIRIN 81 MG CHEWABLE TABLETS PO SCH (09:32)
[2019-10-07] MEDS: metoPROLOL SUCCINATE 25 MG TAB.SR.24H (FP) PO SCH ×2 (09:32→22:45)
[2019-10-07] MEDS: BUDESONIDE/FORMETEROL FUMARATE 80/4.5 mcg INHALER IH SCH ×2 (09:34→22:46)
[2019-10-07 09:39] LABS: ALBUMIN 2.7 g/dl (3.4-5.0); BILIRUBIN,TOTAL 0.3 mg/dL (0.2-1); BLOOD UREA NITROGEN 40.8 mg/dL (7-18); CALCIUM 8.9 mg/dL (8.5-10.1); TOT PROT 5.2 g/dl (6.4-8.2)
[2019-10-07] MEDS: AZITHROMYCIN IVPB 250 MG in DEXTROSE 5%-WATER - 250 ML IVPB SCH (10:15)
[2019-10-07] MEDS: PIOGLITAZONE HCL 15 MG TABLET PO SCH (11:55)
--- NOTE | 2019-10-07 12:00 | PN ---
Progress Note (short form) - Note Progress Note: PULMONARY Denies shortness of breath, cough or wheezing. No abdominal pain. Vital Signs Period Temp Pulse Resp BP Sys/Burrell Pulse Ox Last 24 Hr 97.4 F-98.9 F 71-84 18-18 107-158/50-73 Gen: NAD at rest Heart: RRR Lung: decreased breath sounds at the bases Abd: soft, nontender Ext: no edema CBC, BMP 10/07/19 07:45 10/07/19 07:45 Active Medications Albuterol Sulfate (Ventolin Hfa Inhaler -) 2 puff IH Q6H PRN PRN Reason: SHORT OF BREATH/WHEEZING Albuterol/Ipratropium (Duoneb -) 1 amp NEB RTID [facility] Last Admin: 10/07/19 07:25 Dose: 1 amp Alprazolam (Xanax -) 0.25 mg PO Q8H PRN PRN Reason: ANXIETY Aspirin (Asa -) 81 mg PO DAILY [facility] Last Admin: 10/07/19 09:32 Dose: 81 mg Atorvastatin Calcium (Lipitor -) 20 mg PO HS [facility] Last Admin: 10/06/19 23:11 Dose: 20 mg Budesonide/Formoterol Fumarate (Symbicort 80/4.5mcg -) 2 puff IH BID [facility] Last Admin: 10/07/19 09:34 Dose: 2 puff Dicyclomine HCl (Bentyl -) 10 mg PO BID [facility] Last Admin: 10/07/19 09:32 Dose: 10 mg Dorzolamide HCl (Trusopt 2%) 1 drop OU TID [facility] Last Admin: 10/07/19 09:07 Dose: 1 drop Ferrous Sulfate (Feosol -) 325 mg PO DAILY [facility] Last Admin: 10/07/19 09:32 Dose: 325 mg Ceftriaxone Sodium 1 gm/ (Dextrose) 50 mls @ 100 mls/hr IVPB DAILY [facility]; Protocol Last Admin: 10/07/19 09:28 Dose: 100 mls/hr Azithromycin 250 mg/ Dextrose 250 mls @ 250 mls/hr IVPB DAILY [facility] Last Admin: 10/07/19 10:15 Dose: 250 mls/hr Insulin Aspart (Novolog Vial Sliding Scale -) 1 vial SQ ACHS [facility]; Protocol Last Admin: 10/07/19 06:36 Dose: 2 units Insulin Detemir (Levemir Vial) 8 units SQ HS [facility] Last Admin: 10/06/19 23:12 Dose: 8 units Metoprolol Succinate (Toprol Xl -) 12.5 mg PO BID [facility] Last Admin: 10/07/19 09:32 Dose: 12.5 mg Pantoprazole Sodium (Protonix -) 40 mg PO BID [facility] Last Admin: 10/07/19 09:32 Dose: 40 mg Pioglitazone HCl (Actos -) 15 mg PO DAILY [facility] Last Admin: 10/06/19 10:57 Dose: 15 mg Prednisone (Deltasone -) 40 mg PO DAILY [facility] Last Admin: 10/07/19 09:32 Dose: 40 mg Sitagliptin Phosphate (Januvia -) 25 mg PO ACBK [facility] Last Admin: 10/07/19 06:36 Dose: 25 mg A/P Pneumonia Acute COPD Exacerbation Chronic Hypoxic Respiratory Failure CAD HTN DM Hyperlipidemia h/o CVA Anemia - complete antibiotic course - prednisone taper - inhaled bronchodilators - O2 to keep SpO2 >90% - DVT prophylaxis
--- NOTE | 2019-10-07 12:53 | PN ---
Progress Note (short form) - Note Progress Note: Renal follow up for RANDY and hyperkalemia Seen and examined at the bedside awake and alert offers no acute complaints feels like breathing is back at baseline denies any sob, cp, fever, chills, N/V/D to get PRBC transfusion today Vital Signs Temperature 97.4 F L 10/07/19 06:00 Pulse Rate 71 10/07/19 06:00 Respiratory Rate 18 10/07/19 06:00 Blood Pressure 137/55 L 10/07/19 06:00 O2 Sat by Pulse Oximetry (%) 97 10/06/19 10:50 Intake & Output 10/04/19 10/05/19 10/06/19 10/07/19 23:59 23:59 23:59 23:59 Intake Total 865 1500 625 Balance 865 1500 625 Weight 63.701 kg 63.503 kg NAD awake and alert RRR CTA soft NT/ND no LE edema CBC, BMP 10/07/19 07:45 10/07/19 07:45 Current Medications Albuterol Sulfate (Ventolin Hfa Inhaler -) 2 puff IH Q6H PRN PRN Reason: SHORT OF BREATH/WHEEZING Albuterol/Ipratropium (Duoneb -) 1 amp NEB RTID [facility] Last Admin: 10/07/19 07:25 Dose: 1 amp Alprazolam (Xanax -) 0.25 mg PO Q8H PRN PRN Reason: ANXIETY Aspirin (Asa -) 81 mg PO DAILY [facility] Last Admin: 10/07/19 09:32 Dose: 81 mg Atorvastatin Calcium (Lipitor -) 20 mg PO HS [facility] Last Admin: 10/06/19 23:11 Dose: 20 mg Budesonide/Formoterol Fumarate (Symbicort 80/4.5mcg -) 2 puff IH BID [facility] Last Admin: 10/07/19 09:34 Dose: 2 puff Dicyclomine HCl (Bentyl -) 10 mg PO BID [facility] Last Admin: 10/07/19 09:32 Dose: 10 mg Dorzolamide HCl (Trusopt 2%) 1 drop OU TID [facility] Last Admin: 10/07/19 09:07 Dose: 1 drop Ferrous Sulfate (Feosol -) 325 mg PO DAILY [facility] Last Admin: 10/07/19 09:32 Dose: 325 mg Ceftriaxone Sodium 1 gm/ (Dextrose) 50 mls @ 100 mls/hr IVPB DAILY [facility]; Protocol Last Admin: 10/07/19 09:28 Dose: 100 mls/hr Azithromycin 250 mg/ Dextrose 250 mls @ 250 mls/hr IVPB DAILY [facility] Last Admin: 10/07/19 10:15 Dose: 250 mls/hr Insulin Aspart (Novolog Vial Sliding Scale -) 1 vial SQ ACHS [facility]; Protocol Last Admin: 10/07/19 11:58 Dose: 8 units Insulin Detemir (Levemir Vial) 8 units SQ HS [facility] Last Admin: 10/06/19 23:12 Dose: 8 units Metoprolol Succinate (Toprol Xl -) 12.5 mg PO BID [facility] Last Admin: 10/07/19 09:32 Dose: 12.5 mg Pantoprazole Sodium (Protonix -) 40 mg PO BID [facility] Last Admin: 10/07/19 09:32 Dose: 40 mg Pioglitazone HCl (Actos -) 15 mg PO DAILY [facility] Last Admin: 10/07/19 11:55 Dose: 15 mg Prednisone (Deltasone -) 30 mg PO DAILY [facility] Sitagliptin Phosphate (Januvia -) 25 mg PO ACBK [facility] Last Admin: 10/07/19 06:36 Dose: 25 mg 79 year old woman with history of CKD stage 3, hypertension, DM Type 2, CAD, anemia presented with SOB and cough and admitted for PNA. 1. RANDY on CKD 2. CKD 3. PNA 4. Hypertension 5. Hyperkalemia 6. Anemia Renal function improved and stable. K is improved s/p Lokelma. Last dose was on 10/05. Maintain low potassium diet. continue antibiotics as per primary team Trend renal function and electrolytes daily. PRBC transfusion as per primary team. Would not atribute anemia to CKD as eGFR is ~60. Dillon Ortega DO
--- NOTE | 2019-10-07 15:37 | PN ---
Progress Note, Physician History of Present Illness: SUPINE IN BED RECEIVING BLOOD TRANSFUSION NO C/O CHEST PAIN/ DYSPNEA/ COUGH NO C/O FEVER/CHILLS NO ABDOMINAL PAIN - Current Medication List Current Medications: Active Medications Albuterol Sulfate (Ventolin Hfa Inhaler -) 2 puff IH Q6H PRN PRN Reason: SHORT OF BREATH/WHEEZING Albuterol/Ipratropium (Duoneb -) 1 amp NEB RTID [facility] Last Admin: 10/07/19 13:48 Dose: 1 amp Alprazolam (Xanax -) 0.25 mg PO Q8H PRN PRN Reason: ANXIETY Aspirin (Asa -) 81 mg PO DAILY [facility] Last Admin: 10/07/19 09:32 Dose: 81 mg Atorvastatin Calcium (Lipitor -) 20 mg PO HS [facility] Last Admin: 10/06/19 23:11 Dose: 20 mg Budesonide/Formoterol Fumarate (Symbicort 80/4.5mcg -) 2 puff IH BID [facility] Last Admin: 10/07/19 09:34 Dose: 2 puff Dicyclomine HCl (Bentyl -) 10 mg PO BID [facility] Last Admin: 10/07/19 09:32 Dose: 10 mg Dorzolamide HCl (Trusopt 2%) 1 drop OU TID [facility] Last Admin: 10/07/19 09:07 Dose: 1 drop Ferrous Sulfate (Feosol -) 325 mg PO DAILY [facility] Last Admin: 10/07/19 09:32 Dose: 325 mg Ceftriaxone Sodium 1 gm/ (Dextrose) 50 mls @ 100 mls/hr IVPB DAILY [facility]; Protocol Last Admin: 10/07/19 09:28 Dose: 100 mls/hr Azithromycin 250 mg/ Dextrose 250 mls @ 250 mls/hr IVPB DAILY [facility] Last Admin: 10/07/19 10:15 Dose: 250 mls/hr Insulin Aspart (Novolog Vial Sliding Scale -) 1 vial SQ ACHS [facility]; Protocol Last Admin: 10/07/19 11:58 Dose: 8 units Insulin Detemir (Levemir Vial) 8 units SQ HS [facility] Last Admin: 10/06/19 23:12 Dose: 8 units Metoprolol Succinate (Toprol Xl -) 12.5 mg PO BID [facility] Last Admin: 10/07/19 09:32 Dose: 12.5 mg Pantoprazole Sodium (Protonix -) 40 mg PO BID [facility] Last Admin: 10/07/19 09:32 Dose: 40 mg Pioglitazone HCl (Actos -) 15 mg PO DAILY [facility] Last Admin: 10/07/19 11:55 Dose: 15 mg Prednisone (Deltasone -) 30 mg PO DAILY [facility] Sitagliptin Phosphate (Januvia -) 25 mg PO ACBK [facility] Last Admin: 10/07/19 06:36 Dose: 25 mg - Objective Vital Signs: Vital Signs Temperature 99.3 F 10/07/19 14:35 Pulse Rate 88 10/07/19 14:35 Respiratory Rate 18 10/07/19 14:35 Blood Pressure 110/46 L 10/07/19 14:35 O2 Sat by Pulse Oximetry (%) 98 10/07/19 10:00 Constitutional: Yes: No Distress Eyes: Yes: Conjunctiva Clear Cardiovascular: Yes: Regular Rate and Rhythm, S1, S2 Respiratory: Yes: Diminished Gastrointestinal: Yes: Normal Bowel Sounds, Soft, Abdomen, Obese. No: Tenderness Labs: CBC, BMP 10/07/19 07:45 10/07/19 07:45 Assessment/Plan RLL PNEUMONIA IMPROVED EXACERBATION COPD AZOTEMIA RESOLVED CONTINUE CEFTRIAXONE/ ZITHROMAX IF STABLE PO CEFTIN 500MG BID X 7D NEXT 24H
[2019-10-07] MEDS ORDERED: INSULIN (LEVEMIR) 100 UNITS/ML UNITS SQ ONE (17:11)
[2019-10-07] MEDS ORDERED: INSULIN (NOVOLOG) ASPART 100 UNITS/ML 10ML VIAL ONE (17:11)
--- NOTE | 2019-10-07 22:18 | CON.ENT ---
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 No: O2 Dependent, Pneumonia, Previously Intubated, Pulmonary Embolus, Pulmonary Fibrosis, Sleep Apnea Gastrointestinal: Yes: Constipation, Hiatal Hernia Renal/: Yes: Renal Inusuff ...: No Psych: Yes: Depression Endocrine: Yes: Diabetes Mellitus (with diabetic retinopathy ( had interventions ) and nephropathy ) - Past Surgical History Past Surgical History: Yes: Appendectomy, Tubal Ligation, Colonoscopy, Upper Endoscopy, Breast Biopsy, Cholecystectomy - Alcohol/Substance Use Hx Alcohol Use: No History of Substance Use: reports: None - Smoking History Smoking history: Former smoker Have you smoked in the past 12 months: No Aproximately how many cigarettes per day: 4 If you are a former smoker, when did you quit?: 6 years ago - Social History Usual Living Arrangement: With Spouse ADL: Independent 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 History of Recent Travel: No Home Medications - Allergies Allergies/Adverse Reactions: Allergies Allergy/AdvReac Type Severity Reaction Status Date / Time No Known Allergies Allergy Verified 09/29/19 12:56 - Home Medications Home Medications: Ambulatory Orders Aspirin [ASA -] 81 mg PO DAILY 04/12/17 Metoprolol Succinate [Toprol XL -] 25 mg PO BID 04/12/17 Olmesartan Medoxomil [Benicar -] 20 mg PO DAILY 04/12/17 Albuterol Sulfate Inhaler - [Ventolin HFA Inhaler -] 1 - 2 inh PO Q4H PRN Pioglitazone HCl 15 mg PO DAILY 04/28/18 Ferrous Sulfate [Feosol] 325 mg PO DAILY 02/15/19 Metformin HCl [Glucophage] 1,000 mg PO BID 03/24/19 Brinzolamide [Azopt (Non-Formulary)] 5 ml OP TID 09/29/19 Budesonide/Formeterol Fumarate [SYMBICORT 80/4.5mcg -] 2 inh PO BID 09/29/19 Dicyclomine HCl 10 mg PO BID 09/29/19 Pantoprazole Sodium 40 mg PO BID 09/29/19 Simvastatin 40 mg PO DAILY 09/29/19 Sitagliptin Phosphate [Januvia] 100 mg PO DAILY 09/29/19 Physical Exam-ENT Vital Signs: Vital Signs Temperature 99.3 F 10/07/19 14:35 Pulse Rate 88 10/07/19 14:35 Respiratory Rate 18 10/07/19 14:35 Blood Pressure 110/46 L 10/07/19 14:35 O2 Sat by Pulse Oximetry (%) 98 10/07/19 10:00 Constitutional: Yes: Well Nourished Neck: Yes: Supple Cardiovascular: Yes: WNL Respiratory: Yes: Diminished Gastrointestinal: Yes: Normal Bowel Sounds, Soft Problem List - Problems (1) Diabetes mellitus Assessment/Plan: would add daytime novolog to keep glucose lower with steroid use as scheduled for home as will not use home insulin can use glip in am with steroid taper in addition to other meds Code(s): E11.9 - TYPE 2 DIABETES MELLITUS WITHOUT COMPLICATIONS Qualifiers: Diabetes mellitus type: type 2 Diabetes mellitus termite control representative insulin use: without termite control representative use Diabetes mellitus complication status: with circulatory complication Diabetes mellitus complication detail: with other circulatory complications Qualified Code(s): E11.59 - Type 2 diabetes mellitus with other circulatory complications
[2019-10-07] MEDS: INSULIN (LEVEMIR) 100 UNITS/ML UNITS SQ SCH (22:44)
[2019-10-07] MEDS: ATORVASTATIN CA 20 MG TABLET (FP) PO SCH (22:45)
[2019-10-08] MEDS: DORZOLAMIDE 2% HCL OPHTHALMIC SOLUTION 10 ML BOTTLE OU SCH ×3 (01:14→15:31)
[2019-10-08] MEDS: INSULIN SLIDING SCALE (NOVOLOG) 1 VIAL SQ SCH ×3 (06:15→17:09)
--- NOTE | 2019-10-08 06:43 | DS ---
Physical Examination Vital Signs: Vital Signs Temperature 98.4 F 10/08/19 06:00 Pulse Rate 60 10/08/19 06:00 Respiratory Rate 18 10/08/19 06:00 Blood Pressure 147/58 L 10/08/19 06:00 O2 Sat by Pulse Oximetry (%) 99 10/07/19 21:00 Findings/Remarks: feels well no c/o wants to go home; GLU this am 86 BGM 89 on DM pills and sq 8U insulin - will taper steroids more; per daughter pt checks her BGM home and is not on insulin; will go on pills and check BGM call us if > 300 - ADA diet and pills as ordered; f/u needed d/w pt and daughter: PCP, GI dr Feng and at [facility], pulmonary, endocrine and cardiology f/u; meds and diet as advised; health maintenance pap [employer] mammogram per PCP outpt. Constitutional: Yes: No Distress Eyes: Yes: Conjunctiva Clear HENT: Yes: Atraumatic Neck: Yes: Supple Cardiovascular: Yes: Regular Rate and Rhythm Respiratory: Yes: CTA Bilaterally Gastrointestinal: Yes: Soft. No: Tenderness Renal/: No: Hematuria Musculoskeletal: No: Joint Stiffness, Joint Swelling Extremities: No: Cold, Cool Edema: No Integumentary: No: Rash, Venous Stasis Changes Neurological: Yes: Alert, Oriented ...Motor Strength: WNL Psychiatric: Yes: Alert, Oriented. No: Agitated, Suicidal Ideation Labs: CBC, BMP 10/07/19 07:45 10/07/19 07:45 Discharge Summary Problems reviewed: Yes Reason For Visit: PNEUMONIA Current Active Problems Dilated bile duct (Acute) Hyperkalemia (Acute) Pneumonia (Acute) Tremor of both hands (Acute) Procedures: Principal: 79 YOF admitted with PNA and COPD exac Other Procedures: also has h/o DM ASHD GIBleed anemia; biliary stones; seen by GI, pulmoanry;. high GLU - seen by endocrine; GLU better with tapering steroids Hospital Course: IV ATB, IV steroids (then switched to po) improved with above; DC home with f/u as advised; Condition: Fair - Instructions Diet, Activity, Other Instructions: f/u PCP, renal, GI and pulmonary in 1-3 weeks; cardiology f/u as advised; take meds as prescribed; further anemia and liver work up per GI dr Feng and [facility] health maintenance per PCP ([employer], mammogram, BDT). RTER if worse or recurrent c/o Referrals: Duc Perez MD [Primary Care Provider] - Regan Green MD [Staff Physician] - John Feng MD [Staff Physician] - Dillon Ortega MD [Staff Physician] - Bello Frost MD [Staff Physician] - Disposition: VNS/HOME HEALTH CARE - Home Medications Comprehensive Discharge Medication List: Ambulatory Orders Aspirin [ASA -] 81 mg PO DAILY 04/12/17 Metoprolol Succinate [Toprol XL -] 25 mg PO BID 04/12/17 Olmesartan Medoxomil [Benicar -] 20 mg PO DAILY 04/12/17 Albuterol Sulfate Inhaler - [Ventolin HFA Inhaler -] 1 - 2 inh PO Q4H PRN Pioglitazone HCl 15 mg PO DAILY 04/28/18 Ferrous Sulfate [Feosol] 325 mg PO DAILY 02/15/19 Metformin HCl [Glucophage] 1,000 mg PO BID 03/24/19 Brinzolamide [Azopt (Non-Formulary)] 5 ml OP TID 09/29/19 Budesonide/Formeterol Fumarate [SYMBICORT 80/4.5mcg -] 2 inh PO BID 09/29/19 Dicyclomine HCl 10 mg PO BID 09/29/19 Pantoprazole Sodium 40 mg PO BID 09/29/19 Simvastatin 40 mg PO DAILY 09/29/19 Sitagliptin Phosphate [Januvia] 100 mg PO DAILY 09/29/19
[2019-10-08] MEDS: ALBUTEROL SO4 2.5/IPRATROPIUM 0.5 INH SOL 3 ML VIAL.NEB. NEB SCH ×2 (07:57→14:50)
[2019-10-08 08:26] LABS: ALBUMIN 2.5 g/dl (3.4-5.0); BILIRUBIN,TOTAL 0.4 mg/dL (0.2-1); BLOOD UREA NITROGEN 40.2 mg/dL (7-18); CALCIUM 8.3 mg/dL (8.5-10.1); CREATININE 0.9 mg/dL (0.55-1.3); POTASSIUM 4.5 mmol/L (3.5-5.1)
[2019-10-08 08:29] LABS: BASO % 0.2 % (0-2.0); EOS % 0.7 % (0-4.5); HEMATOCRIT 25.7 % (32.4-45.2); HEMOGLOBIN 8.7 GM/dL (10.7-15.3); LYMPH % 15.8 % (8-40); MCH 30.2 pg (25.7-33.7); MCHC 33.8 g/dl (32.0-36.0); MEAN CELL VOLUME 89.3 fl (80-96); NEUT % 75.3 % (42.8-82.8); PLATELET COUNT 296 K/MM3 (134-434); RBC 2.87 M/mm3 (3.60-5.2); RDW 16.2 % (11.6-15.6); WHITE BLOOD COUNT 7.6 K/mm3 (4.0-10.0)
[2019-10-08] MEDS ORDERED: PT OWN MED DRAWER 7, Y5N ONE (09:36)
[2019-10-08] MEDS: BUDESONIDE/FORMETEROL FUMARATE 80/4.5 mcg INHALER IH SCH (09:47)
[2019-10-08] MEDS: PANTOPRAZOLE 40 MG TABLET PO SCH (09:48)
[2019-10-08] MEDS: metoPROLOL SUCCINATE 25 MG TAB.SR.24H (FP) PO SCH (09:48)
[2019-10-08] MEDS: FERROUS SO4 325 MG TABLET (FP) PO SCH (09:48)
[2019-10-08] MEDS: DICYCLOMINE HCL 10 MG CAPSULE PO SCH (09:50)
[2019-10-08] MEDS: ASPIRIN 81 MG CHEWABLE TABLETS PO SCH (09:50)
[2019-10-08] MEDS: PIOGLITAZONE HCL 15 MG TABLET PO SCH (09:50)
[2019-10-08] MEDS: AZITHROMYCIN IVPB 250 MG in DEXTROSE 5%-WATER - 250 ML IVPB SCH (09:51)
[2019-10-08] MEDS ORDERED: predniSONE 20 MG TABLET (UD) PO SCH (10:00)
[2019-10-08 10:33] LABS: ANISOCYTOSIS 1+; MACROCYTOSIS 0; PLATELET ESTIMATE NORMAL
[2019-10-08] MEDS ORDERED: INSULIN (NOVOLOG) ASPART 100 UNITS/ML 10ML VIAL ONE (11:44)
[2019-10-08] MEDS ORDERED: DEXTROSE 5%-WATER - 50 ML IVPB ONE (11:44)
[2019-10-08] MEDS ORDERED: cefTRIAXone SODIUM 1 GM VIAL ONE (11:44)
[2019-10-08] MEDS: CEFTRIAXONE 1 GM in DEXTROSE 5%-WATER - 50 ML IVPB SCH (11:50)
[2019-10-08 15:27] VITALS: BP 119/54; PULSE 79; TEMP 99.3
== END 2019-10-08 18:30 | disposition home health service (06) | DRG 190 ==
LOC: JER 10:18 → JERBED 13:21 → J5S 09-30 00:54
PROVIDERS: ADMIT Specialist; ATTEND Specialist
PROC: 30233N1 Transfusion of Nonautologous Red Blood Cells into Peripheral Vein, Percutaneous Approach (ICD-10-PCS; principal; 2019-10-07)
DX: J44.1 Chronic obstructive pulmonary disease with (acute) exacerbation (principal); J18.9 Pneumonia, unspecified organism; J96.10 Chronic respiratory failure, unspecified whether with hypoxia or hypercapnia; N17.9 Acute kidney failure, unspecified; J98.11 Atelectasis; I12.9 Hypertensive chronic kidney disease with stage 1 through stage 4 chronic kidney disease, or unspecified chronic kidney disease; E11.22 Type 2 diabetes mellitus with diabetic chronic kidney disease; N18.3 Chronic kidney disease, stage 3 (moderate); K83.8 Other specified diseases of biliary tract; I25.10 Atherosclerotic heart disease of native coronary artery without angina pectoris; D64.9 Anemia, unspecified; E87.5 Hyperkalemia; K80.50 Calculus of bile duct without cholangitis or cholecystitis without obstruction; F32.9 Major depressive disorder, single episode, unspecified; E78.5 Hyperlipidemia, unspecified; Z87.891 Personal history of nicotine dependence
CPT/HCPCS: 36415; 36430; 36511; 71045-TC-FY; 71250-TC; 74181-TC; 76705-TC; 80048; 80053; 81003; 82607; 82728; 82747; 82803; 82947; 82962; 83540; 83550; 83605; 83615; 83735; 84100; 84155; 84165; 84439; 84443; 84484; 85014; 85025; 85027; 85044; 85651; 86038; 86140; 86850; 86900; 86901; 86922; 87040; 87086; 87804; 87899; 93005; 93010; 94640; 97116-GP; 97161-GP; 99285-25; J1644; J7030; P9038; P9058

== ENCOUNTER 2020-10-25 20:40 | Inpatient (IN) | payer OTHER ==
[2020-10-25] MEDS ORDERED: ALBUTEROL SO4 2.5/IPRATROPIUM 0.5 INH SOL 3 ML VIAL.NEB. NEB ONE ×2 (21:06→21:53)
[2020-10-25] MEDS ORDERED: MAGNESIUM SULF 50% (8.12 MEQ/2 ML-1 GM VIAL) IVPB ONE (21:10)
[2020-10-25] MEDS ORDERED: methylPREDNISolone NA SUCC 125 MG/2 ML VIAL IVPUSH ONE (21:19)
[2020-10-25 22:20] LABS: BASO % 0.7 % (0-2.0); EOS % 1.1 % (0-4.5); HEMATOCRIT 23.5 % (32.4-45.2); HEMOGLOBIN 7.6 GM/dL (10.7-15.3); LYMPH % 14.2 % (8-40); MCH 30.2 pg (25.7-33.7); MCHC 32.4 g/dl (32.0-36.0); MEAN PLT VOLUME 8.9 fl (7.5-11.1); MONO % 7.5 % (3.8-10.2); NEUT % 76.5 % (42.8-82.8); PLATELET COUNT 261 K/MM3 (134-434); RBC 2.52 M/mm3 (3.60-5.2); WHITE BLOOD COUNT 7.8 K/mm3 (4.0-10.0)
[2020-10-25 22:31] LABS: INR 0.94 (0.83-1.09); PROTHROMBIN TIME (PATIENT) 11.6 SEC (9.7-13.0)
[2020-10-25 22:34] LABS: ACTIVATED PTT 22.2 SECONDS (25.2-36.5)
[2020-10-25 22:37] LABS: CHLORIDE 104 mmol/L (98-107); POTASSIUM 5.8 mmol/L (3.5-5.1); SODIUM 138 mmol/L (136-145)
[2020-10-25 22:39] LABS: CALCIUM 8.6 mg/dL (8.5-10.1)
[2020-10-25 22:40] LABS: ALBUMIN 3.7 g/dl (3.4-5.0); ANION GAP 3 MMOL/L (8-16); BLOOD UREA NITROGEN 47.2 mg/dL (7-18); CO2 32 mmol/L (21-32); GLUCOSE,RANDOM 250 mg/dL (74-106)
[2020-10-25] MEDS ORDERED: methylPREDNISolone NA SUCC 125 MG/2 ML VIAL ONE (22:40)
[2020-10-25] MEDS ORDERED: MAGNESIUM SULFATE IN WATER 2 GM/50 ML IVPB IVPB ONE (22:41)
[2020-10-25 22:43] LABS: CREATININE 1.2 mg/dL (0.55-1.3); SGOT/AST 9 U/L (15-37); SGPT/ALT 11 U/L (13-61)
[2020-10-25 22:45] LABS: BILIRUBIN,TOTAL 0.2 mg/dL (0.2-1); TOT PROT 6.7 g/dl (6.4-8.2)
[2020-10-25 22:46] LABS: ALK PHOS 62 U/L (45-117)
[2020-10-25 22:53] LABS: ARTERIAL BLD GAS O2 SATURATION 98.4 mmHg (95-98); ARTERIAL BLOOD GAS BASE EXCESS 3.1 mmol/L (-2-2); ARTERIAL BLOOD GAS PO2 133.4 mmHg (80-100); ARTERIAL BLOOD GAS pH 7.324 (7.350-7.450)
[2020-10-25 22:55] LABS: ALLENS TEST POSITIVE
[2020-10-25] MEDS ORDERED: SODIUM ZIRCONIUM CYCLOSILICATE (LOKELMA) 5 GM PACKET PO STA (23:16)
[2020-10-25] MEDS ORDERED: INSULIN REGULAR HUMAN 100 UNITS/ML *VIAL IVPUSH STA (23:16)
[2020-10-25 23:52] LABS: ANISOCYTOSIS 0; MACROCYTOSIS 0; OVALOCYTE 1+; PLATELET ESTIMATE NORMAL
[2020-10-26] MEDS ORDERED: SODIUM ZIRCONIUM CYCLOSILICATE (LOKELMA) 5 GM PACKET ONE (00:07)
[2020-10-26 04:24] LABS: POTASSIUM 5.3 mmol/L (3.5-5.1)
[2020-10-26 04:26] LABS: BLOOD UREA NITROGEN 43.8 mg/dL (7-18)
[2020-10-26] MEDS ORDERED: ALBUTEROL SO4 HFA INHALER IH PRN (04:26)
[2020-10-26 04:29] LABS: CREATININE 1.3 mg/dL (0.55-1.3)
[2020-10-26] MEDS: PANTOPRAZOLE 40 MG TABLET PO SCH ×2 (09:52→21:08)
[2020-10-26] MEDS: FERROUS SO4 325 MG TABLET (FP) PO SCH (09:52)
[2020-10-26] MEDS: ASPIRIN 81 MG CHEWABLE TABLETS PO SCH (09:52)
[2020-10-26] MEDS: metoPROLOL SUCCINATE 25 MG TAB.SR.24H (FP) PO SCH ×2 (09:52→21:09)
[2020-10-26] MEDS: ATORVASTATIN CA 20 MG TABLET (FP) PO SCH (09:54)
[2020-10-26] MEDS: BUDESONIDE/FORMETEROL FUMARATE 80/4.5 mcg INHALER IH SCH ×2 (10:24→21:08)
[2020-10-26] MEDS ORDERED: IRON SUCROSE INJECTION 100 MG in SODIUM CHLORIDE 95 ML IVPB ONE (14:00)
[2020-10-26 14:41] LABS: PH,URINE 6.5 (5.0-8.0); URINE APPEARANCE CLEAR; URINE BILIRUBIN NEGATIVE (NEGATIVE); URINE COLOR YELLOW; URINE KETONE NEGATIVE (NEGATIVE); URINE LEUK ESTERASE NEGATIVE (NEGATIVE); URINE NITRITE NEGATIVE (NEGATIVE); URINE PROTEIN 1+ (NEGATIVE); URINE UROBILINOGEN 0.2 mg/dL (0.2-1.0)
[2020-10-26 14:42] LABS: EPI CELLS 12.8 /uL (0-25.1); URINE BACTERIA 331.8 /uL (0-1359); URINE RBC 17.4 /uL (0-23.9); URINE WBC 4.7 /uL (0-25.8)
[2020-10-26] MEDS: PIOGLITAZONE HCL 15 MG TABLET PO SCH (14:42)
[2020-10-26] MEDS: INSULIN SLIDING SCALE (NOVOLOG) 1 VIAL SQ SCH ×2 (16:13→21:13)
[2020-10-26] MEDS ORDERED: ACETAMINOPHEN 325 MG TABLET (FP) PO ONE (18:00)
[2020-10-26] MEDS ORDERED: INSULIN (NOVOLOG) ASPART 100 UNITS/ML 10ML VIAL SQ ONE (18:00)
[2020-10-26] MEDS ORDERED: PT OWN MED DRAWER 7, Y5N ONE (21:33)
[2020-10-27] MEDS: INSULIN SLIDING SCALE (NOVOLOG) 1 VIAL SQ SCH ×4 (06:19→21:14)
[2020-10-27] MEDS ORDERED: INSULIN (NOVOLOG) ASPART 100 UNITS/ML 10ML VIAL ONE (06:22)
[2020-10-27 08:39] LABS: BASO % 0.3 % (0-2.0); EOS % 1.3 % (0-4.5); HEMOGLOBIN 9.1 GM/dL (10.7-15.3); LYMPH % 13.7 % (8-40); MCH 29.9 pg (25.7-33.7); MCHC 32.6 g/dl (32.0-36.0); MEAN CELL VOLUME 91.5 fl (80-96); MEAN PLT VOLUME 8.9 fl (7.5-11.1); MONO % 6.4 % (3.8-10.2); NEUT % 78.3 % (42.8-82.8); PLATELET COUNT 288 K/MM3 (134-434); RBC 3.06 M/mm3 (3.60-5.2); RDW 17.1 % (11.6-15.6); WHITE BLOOD COUNT 6.6 K/mm3 (4.0-10.0)
[2020-10-27 09:02] LABS: POTASSIUM 5.3 mmol/L (3.5-5.1)
[2020-10-27 09:10] LABS: ALBUMIN 3.3 g/dl (3.4-5.0); CALCIUM 9.1 mg/dL (8.5-10.1)
[2020-10-27 09:11] LABS: BLOOD UREA NITROGEN 56.9 mg/dL (7-18)
[2020-10-27 09:13] LABS: CREATININE 1.5 mg/dL (0.55-1.3)
[2020-10-27 09:17] LABS: BILIRUBIN,TOTAL 0.2 mg/dL (0.2-1)
[2020-10-27 09:18] LABS: TOT PROT 6.2 g/dl (6.4-8.2)
[2020-10-27] MEDS: ASPIRIN 81 MG CHEWABLE TABLETS PO SCH (09:54)
[2020-10-27] MEDS: BUDESONIDE/FORMETEROL FUMARATE 80/4.5 mcg INHALER IH SCH ×2 (09:54→21:17)
[2020-10-27] MEDS: PANTOPRAZOLE 40 MG TABLET PO SCH ×2 (09:54→21:14)
[2020-10-27] MEDS: FERROUS SO4 325 MG TABLET (FP) PO SCH (09:54)
[2020-10-27] MEDS: ATORVASTATIN CA 20 MG TABLET (FP) PO SCH (09:54)
[2020-10-27] MEDS: metoPROLOL SUCCINATE 25 MG TAB.SR.24H (FP) PO SCH ×2 (09:54→21:14)
[2020-10-27] MEDS: PIOGLITAZONE HCL 15 MG TABLET PO SCH (09:55)
[2020-10-27] MEDS: DORZOLAMIDE 2% HCL OPHTHALMIC SOLUTION 10 ML BOTTLE OU SCH ×2 (15:21→21:17)
[2020-10-27] MEDS ORDERED: PT OWN MED DRAWER 7, Y5N ONE (21:12)
[2020-10-28] MEDS: DORZOLAMIDE 2% HCL OPHTHALMIC SOLUTION 10 ML BOTTLE OU SCH ×3 (05:51→21:09)
[2020-10-28] MEDS: INSULIN SLIDING SCALE (NOVOLOG) 1 VIAL SQ SCH ×4 (06:13→21:09)
[2020-10-28] MEDS ORDERED: PT OWN MED DRAWER 7, Y5N ONE (09:44)
[2020-10-28] MEDS: FERROUS SO4 325 MG TABLET (FP) PO SCH (09:53)
[2020-10-28] MEDS: PIOGLITAZONE HCL 15 MG TABLET PO SCH (09:53)
[2020-10-28] MEDS: metoPROLOL SUCCINATE 25 MG TAB.SR.24H (FP) PO SCH ×2 (09:53→21:08)
[2020-10-28] MEDS: ASPIRIN 81 MG CHEWABLE TABLETS PO SCH (09:53)
[2020-10-28] MEDS: PANTOPRAZOLE 40 MG TABLET PO SCH ×2 (09:53→21:08)
[2020-10-28] MEDS: ATORVASTATIN CA 20 MG TABLET (FP) PO SCH (09:53)
[2020-10-28] MEDS: CEPHALEXIN MONOHYDRATE 500 MG CAPSULE (UD) PO SCH ×2 (09:53→21:08)
[2020-10-28] MEDS: BUDESONIDE/FORMETEROL FUMARATE 80/4.5 mcg INHALER IH SCH ×2 (09:54→21:09)
[2020-10-28 10:53] LABS: BASO % 0.5 % (0-2.0); HEMATOCRIT 27.1 % (32.4-45.2); HEMOGLOBIN 8.6 GM/dL (10.7-15.3); LYMPH % 11.5 % (8-40); MCH 29.8 pg (25.7-33.7); MCHC 31.9 g/dl (32.0-36.0); MEAN CELL VOLUME 93.7 fl (80-96); MEAN PLT VOLUME 8.6 fl (7.5-11.1); MONO % 10.5 % (3.8-10.2); NEUT % 76.5 % (42.8-82.8); PLATELET COUNT 254 K/MM3 (134-434); RBC 2.89 M/mm3 (3.60-5.2); RDW 17.2 % (11.6-15.6); WHITE BLOOD COUNT 7.3 K/mm3 (4.0-10.0)
[2020-10-28 11:33] LABS: POTASSIUM 5.4 mmol/L (3.5-5.1)
[2020-10-28 11:35] LABS: CALCIUM 8.3 mg/dL (8.5-10.1)
[2020-10-28 11:36] LABS: BLOOD UREA NITROGEN 65.1 mg/dL (7-18)
[2020-10-28 11:39] LABS: CREATININE 1.5 mg/dL (0.55-1.3)
[2020-10-28] MEDS ORDERED: BISACODYL 5 MG TABLET.DR (FP) PO ONE (15:32)
[2020-10-28 15:37] VITALS: BMI 24.5
[2020-10-28] MEDS ORDERED: MINERAL OIL ENEMA 133 ML ENEMA PR ONE (15:37)
[2020-10-28] MEDS: SODIUM CHLORIDE 1,000 ML IV SCH (16:52)
[2020-10-29] MEDS ORDERED: CYANOCOBALAMIN (VITAMIN B-12) 1000 MCG/1 ML VIAL IM ONE (04:57)
[2020-10-29] MEDS ORDERED: PT OWN MED DRAWER 7, Y5N ONE (05:43)
[2020-10-29] MEDS ORDERED: POLYETHYLENE GLYCOL 3350 255 GM BTL PO ONE (06:00)
[2020-10-29] MEDS: DORZOLAMIDE 2% HCL OPHTHALMIC SOLUTION 10 ML BOTTLE OU SCH ×3 (06:15→21:29)
[2020-10-29] MEDS: INSULIN SLIDING SCALE (NOVOLOG) 1 VIAL SQ SCH ×4 (06:30→23:13)
[2020-10-29] MEDS ORDERED: PIOGLITAZONE HCL 15 MG TABLET PO SCH ×2 (07:00→20:13)
[2020-10-29] MEDS: SODIUM CHLORIDE 1,000 ML IV SCH (08:28)
[2020-10-29] MEDS: metoPROLOL SUCCINATE 25 MG TAB.SR.24H (FP) PO SCH ×2 (09:38→21:28)
[2020-10-29] MEDS: PANTOPRAZOLE 40 MG TABLET PO SCH ×2 (09:38→21:28)
[2020-10-29] MEDS: FERROUS SO4 325 MG TABLET (FP) PO SCH (09:38)
[2020-10-29] MEDS: CEPHALEXIN MONOHYDRATE 500 MG CAPSULE (UD) PO SCH ×2 (09:38→21:28)
[2020-10-29] MEDS: ATORVASTATIN CA 20 MG TABLET (FP) PO SCH (09:38)
[2020-10-29] MEDS: BUDESONIDE/FORMETEROL FUMARATE 80/4.5 mcg INHALER IH SCH ×2 (09:39→21:29)
[2020-10-29 10:03] LABS: BASO % 0.4 % (0-2.0); HEMATOCRIT 30.8 % (32.4-45.2); HEMOGLOBIN 9.6 GM/dL (10.7-15.3); LYMPH % 14.4 % (8-40); MCH 29.6 pg (25.7-33.7); MCHC 31.1 g/dl (32.0-36.0); MEAN CELL VOLUME 95.2 fl (80-96); MEAN PLT VOLUME 8.7 fl (7.5-11.1); MONO % 11.2 % (3.8-10.2); PLATELET COUNT 269 K/MM3 (134-434); RBC 3.24 M/mm3 (3.60-5.2); RDW 17.5 % (11.6-15.6); WHITE BLOOD COUNT 6.5 K/mm3 (4.0-10.0)
[2020-10-29] MEDS: ASPIRIN 81 MG CHEWABLE TABLETS PO SCH (10:04)
[2020-10-29] MEDS ORDERED: MAGNESIUM CITRATE 300 ML BOTTLE PO ONE ×3 (10:08→17:00)
[2020-10-29 10:23] LABS: CALCIUM 8.5 mg/dL (8.5-10.1)
[2020-10-29 10:24] LABS: ALBUMIN 3.3 g/dl (3.4-5.0); BLOOD UREA NITROGEN 55.6 mg/dL (7-18)
[2020-10-29 10:27] LABS: CREATININE 1.3 mg/dL (0.55-1.3)
[2020-10-29 10:28] LABS: BILIRUBIN,TOTAL 0.4 mg/dL (0.2-1); TOT PROT 6.4 g/dl (6.4-8.2)
[2020-10-29] MEDS ORDERED: SODIUM PHOSPHATE/NA BIPHOS 133 ML ENEMA RC SCH (11:45)
[2020-10-29] MEDS: DEXTROSE 5%-0.45% SALINE 1,000 ML IV SCH (13:57)
[2020-10-30] MEDS ORDERED: SODIUM PHOSPHATE/NA BIPHOS 133 ML ENEMA PR ONE ×2 (04:00)
[2020-10-30] MEDS ORDERED: SODIUM PHOSPHATE/NA BIPHOS 133 ML ENEMA RC SCH (04:00)
[2020-10-30] MEDS ORDERED: MINERAL OIL ENEMA 133 ML ENEMA PR ONE (04:00)
[2020-10-30] MEDS: DORZOLAMIDE 2% HCL OPHTHALMIC SOLUTION 10 ML BOTTLE OU SCH ×2 (06:30→13:26)
[2020-10-30] MEDS: INSULIN SLIDING SCALE (NOVOLOG) 1 VIAL SQ SCH ×2 (06:31→12:03)
[2020-10-30 09:25] LABS: BASO % 0.5 % (0-2.0); EOS % 1.5 % (0-4.5); HEMATOCRIT 25.3 % (32.4-45.2); HEMOGLOBIN 8.3 GM/dL (10.7-15.3); LYMPH % 13.7 % (8-40); MCH 30.3 pg (25.7-33.7); MCHC 32.7 g/dl (32.0-36.0); MEAN CELL VOLUME 92.6 fl (80-96); MEAN PLT VOLUME 8.6 fl (7.5-11.1); MONO % 11.3 % (3.8-10.2); PLATELET COUNT 234 K/MM3 (134-434); RBC 2.73 M/mm3 (3.60-5.2); WHITE BLOOD COUNT 4.6 K/mm3 (4.0-10.0)
[2020-10-30 09:42] LABS: POTASSIUM 5.4 mmol/L (3.5-5.1)
[2020-10-30 09:48] LABS: CALCIUM 8.3 mg/dL (8.5-10.1)
[2020-10-30 09:49] LABS: ALBUMIN 2.7 g/dl (3.4-5.0); BLOOD UREA NITROGEN 40.6 mg/dL (7-18)
[2020-10-30 09:52] LABS: CREATININE 1.1 mg/dL (0.55-1.3)
[2020-10-30 09:53] LABS: BILIRUBIN,TOTAL 0.6 mg/dL (0.2-1); TOT PROT 5.3 g/dl (6.4-8.2)
[2020-10-30] MEDS: PANTOPRAZOLE 40 MG TABLET PO SCH (11:48)
[2020-10-30] MEDS: CEPHALEXIN MONOHYDRATE 500 MG CAPSULE (UD) PO SCH (11:48)
[2020-10-30] MEDS: ASPIRIN 81 MG CHEWABLE TABLETS PO SCH (11:48)
[2020-10-30] MEDS: metoPROLOL SUCCINATE 25 MG TAB.SR.24H (FP) PO SCH (11:48)
[2020-10-30] MEDS: ATORVASTATIN CA 20 MG TABLET (FP) PO SCH (11:48)
[2020-10-30] MEDS: BUDESONIDE/FORMETEROL FUMARATE 80/4.5 mcg INHALER IH SCH (11:48)
[2020-10-30] MEDS: FERROUS SO4 325 MG TABLET (FP) PO SCH (11:48)
[2020-10-30] MEDS: DEXTROSE 5%-0.45% SALINE 1,000 ML IV SCH (13:23)
[2020-10-30] MEDS ORDERED: IRON SUCROSE INJECTION 100 MG in SODIUM CHLORIDE 95 ML IVPB ONE (13:30)
[2020-10-30] MEDS ORDERED: SODIUM ZIRCONIUM CYCLOSILICATE (LOKELMA) 5 GM PACKET PO SCH (14:00)
[2020-10-30 14:38] VITALS: BP 129/56; PULSE 71; TEMP 97.8
== END 2020-10-30 14:52 | disposition home health service (06) | DRG 812 ==
LOC: JER 20:40 → JERBED 10-26 00:54 → J5S 10-26 05:31
PROVIDERS: ADMIT Internal Medicine; ATTEND Internal Medicine
PROC: 30233N1 Transfusion of Nonautologous Red Blood Cells into Peripheral Vein, Percutaneous Approach (ICD-10-PCS; principal; 2020-10-26)
DX: D50.0 Iron deficiency anemia secondary to blood loss (chronic) (principal); N17.9 Acute kidney failure, unspecified; J96.11 Chronic respiratory failure with hypoxia; C50.919 Malignant neoplasm of unspecified site of unspecified female breast; E87.5 Hyperkalemia; J44.9 Chronic obstructive pulmonary disease, unspecified; E11.9 Type 2 diabetes mellitus without complications; N14.2 Nephropathy induced by unspecified drug, medicament or biological substance; I11.9 Hypertensive heart disease without heart failure; F17.210 Nicotine dependence, cigarettes, uncomplicated; E78.5 Hyperlipidemia, unspecified
CPT/HCPCS: 36415; 36430; 36600; 71045-TC-FY; 71275-TC; 80048; 80053; 81003; 82607; 82728; 82803; 82947; 82962; 83540; 83550; 84443; 84484; 85025; 85610; 85730; 86850; 86900; 86901; 86922; 87086; 87186; 87804; 93005; 93010; 93970-TC; 94010; 97116-GP; 97161-GP; 99285-25; C9803; J1756; P9058; Q9967; U0003

== ENCOUNTER 2020-11-21 14:35 | Inpatient (IN) | payer OTHER ==
[2020-11-21 15:21] VITALS: BMI 21.9
[2020-11-21 16:09] LABS: BASO % 0.4 % (0-2.0); EOS % 0.8 % (0-4.5); HEMATOCRIT 26.9 % (32.4-45.2); HEMOGLOBIN 8.5 GM/dL (10.7-15.3); LYMPH % 8.2 % (8-40); MCH 29.9 pg (25.7-33.7); MCHC 31.4 g/dl (32.0-36.0); MEAN CELL VOLUME 95.2 fl (80-96); MEAN PLT VOLUME 8.1 fl (7.5-11.1); MONO % 8.7 % (3.8-10.2); NEUT % 81.9 % (42.8-82.8); PLATELET COUNT 343 K/MM3 (134-434); RBC 2.83 M/mm3 (3.60-5.2); RDW 17.2 % (11.6-15.6); WHITE BLOOD COUNT 6.9 K/mm3 (4.0-10.0)
[2020-11-21 16:16] LABS: INR 1.03 (0.83-1.09); PROTHROMBIN TIME (PATIENT) 12.4 SEC (9.7-13.0)
[2020-11-21 16:18] LABS: ACTIVATED PTT 28.2 SECONDS (25.2-36.5)
[2020-11-21 16:28] LABS: VENOUS BASE EXCESS 4.8 mmol/L (-2-2); VENOUS O2 SATURATION 83.7 % (70-80); VENOUS PH 7.259 (7.310-7.410)
[2020-11-21 16:29] LABS: CHLORIDE 102 mmol/L (98-107); SODIUM 138 mmol/L (136-145)
[2020-11-21 16:32] LABS: ANION GAP 2 MMOL/L (8-16); BLOOD UREA NITROGEN 37.1 mg/dL (7-18); CO2 34 mmol/L (21-32); GLUCOSE,RANDOM 154 mg/dL (74-106)
[2020-11-21 16:34] LABS: BILIRUBIN,DIRECT 0.1 mg/dL (0.0-0.2); VENOUS PCO2 76.1 mmHg (38-52)
[2020-11-21 16:35] LABS: CREATININE 1.3 mg/dL (0.55-1.3); SGOT/AST 18 U/L (15-37); SGPT/ALT 12 U/L (13-61)
[2020-11-21 16:37] LABS: BILIRUBIN,TOTAL 0.3 mg/dL (0.2-1); TOT PROT 6.5 g/dl (6.4-8.2)
[2020-11-21 16:38] LABS: ALK PHOS 92 U/L (45-117)
[2020-11-21] MEDS ORDERED: PIPERACILLIN/TAZOB 4.5 GM 4.5 GM in DEXTROSE 5%-WATER 100 ML IVPB ONE (16:38)
[2020-11-21 16:39] LABS: LDH 187 U/L (84-246)
[2020-11-21] MEDS ORDERED: methylPREDNISolone NA SUCC 125 MG/2 ML VIAL IVPB ONE (16:39)
[2020-11-21] MEDS ORDERED: PIPERACILLIN/TAZOB 4.5 GM 4.5 GM/100 ML BAG IVPB ONE (17:07)
[2020-11-21] MEDS ORDERED: methylPREDNISolone NA SUCC 125 MG/2 ML VIAL ONE (17:08)
[2020-11-21] MEDS ORDERED: VANCOMYCIN 1 GRAM (PRE-DOCKED) 1,000 MG/250 ML BAG IVPB ONE (17:08)
[2020-11-21] MEDS ORDERED: ALBUTEROL SO4 2.5/IPRATROPIUM 0.5 INH SOL 3 ML VIAL.NEB. NEB ONE ×2 (17:18→17:45)
[2020-11-21] MEDS ORDERED: INSULIN REGULAR HUMAN 100 UNITS/ML *VIAL IVPUSH ONE (17:25)
[2020-11-21] MEDS ORDERED: DEXTROSE 50%-WATER - 25 GM/50 ML VIAL IVPUSH ONE (17:25)
[2020-11-21] MEDS ORDERED: CALCIUM GLUCONATE 10% - 1,000 MG/10 ML VIAL IVPUSH ONE (17:26)
[2020-11-21] MEDS ORDERED: ALBUTEROL SO4 2.5/IPRATROPIUM 0.5 INH SOL 3 ML VIAL.NEB. NEB SCH (17:30)
[2020-11-21] MEDS: VANCOMYCIN 1 GM in D5W (PRE-DOCKED) 1,000 MG/250 ML IVPB ONE ×2 (17:43→18:59)
[2020-11-21] MEDS ORDERED: DEXTROSE 50%-WATER 25 GM/50 ML DISP.SYRIN ONE (17:45)
[2020-11-21] MEDS ORDERED: CALCIUM GLUC IN NACL, ISO-OSM 1 GM/50 ML BAG IVPB ONE (17:45)
[2020-11-21] MEDS ORDERED: INSULIN REGULAR HUMAN 100 UNITS/ML *VIAL ONE (17:45)
[2020-11-21 21:06] LABS: ARTERIAL BLD GAS O2 SATURATION 95.8 mmHg (95-98); ARTERIAL BLOOD GAS BASE EXCESS 6.6 mmol/L (-2-2); ARTERIAL BLOOD GAS PO2 91.1 mmHg (80-100); ARTERIAL BLOOD GAS pH 7.301 (7.350-7.450)
[2020-11-21 21:13] LABS: ALLENS TEST POSITIVE
[2020-11-21 21:14] LABS: VENT MODE S/T; VENT RATE 14
[2020-11-21 22:44] LABS: EPI CELLS >36 /uL (0-25.1); HYALINE CASTS 31 /uL (0-3.1); URINE APPEARANCE TURBID; URINE BACTERIA 206 /uL (0-1359); URINE BILIRUBIN NEGATIVE (NEGATIVE); URINE COLOR YELLOW; URINE GLUCOSE (UA) TRACE (NEGATIVE); URINE KETONE NEGATIVE (NEGATIVE); URINE LEUK ESTERASE 3+ (NEGATIVE); URINE NITRITE NEGATIVE (NEGATIVE); URINE PROTEIN 3+ (NEGATIVE); URINE UROBILINOGEN 0.2 mg/dL (0.2-1.0); URINE WBC 10536 /uL (0-25.8)
[2020-11-21 23:09] LABS: CALCIUM 9.1 mg/dL (8.5-10.1)
[2020-11-21 23:10] LABS: ALBUMIN 2.6 g/dl (3.4-5.0); BLOOD UREA NITROGEN 38.9 mg/dL (7-18)
[2020-11-21 23:13] LABS: CREATININE 1.3 mg/dL (0.55-1.3)
[2020-11-21 23:15] LABS: BILIRUBIN,TOTAL 0.3 mg/dL (0.2-1); TOT PROT 5.7 g/dl (6.4-8.2)
[2020-11-22 00:04] LABS: URINE RBC 597.1 /uL (0-23.9); YEAST MANY (NEGATIVE)
[2020-11-22 07:20] LABS: BASO % 0.2 % (0-2.0); HEMATOCRIT 24.1 % (32.4-45.2); HEMOGLOBIN 7.6 GM/dL (10.7-15.3); LYMPH % 9.9 % (8-40); MCH 29.7 pg (25.7-33.7); MCHC 31.6 g/dl (32.0-36.0); MEAN CELL VOLUME 94.3 fl (80-96); MEAN PLT VOLUME 8.4 fl (7.5-11.1); MONO % 1.8 % (3.8-10.2); NEUT % 88.1 % (42.8-82.8); PLATELET COUNT 301 K/MM3 (134-434); RBC 2.55 M/mm3 (3.60-5.2); WHITE BLOOD COUNT 5.2 K/mm3 (4.0-10.0)
[2020-11-22 07:36] LABS: VENOUS O2 SATURATION 99.5 % (70-80); VENOUS PH 7.313 (7.310-7.410)
[2020-11-22 07:37] LABS: CHLORIDE 101 mmol/L (98-107); SODIUM 136 mmol/L (136-145)
[2020-11-22 07:49] LABS: CALCIUM 8.8 mg/dL (8.5-10.1)
[2020-11-22 07:50] LABS: ALBUMIN 2.4 g/dl (3.4-5.0); BLOOD UREA NITROGEN 50.9 mg/dL (7-18); CO2 31 mmol/L (21-32); GLUCOSE,RANDOM 274 mg/dL (74-106); MAGNESIUM 2.1 mg/dL (1.8-2.4)
[2020-11-22 07:53] LABS: CREATININE 1.4 mg/dL (0.55-1.3)
[2020-11-22 07:55] LABS: ALK PHOS 80 U/L (45-117); SGOT/AST 12 U/L (15-37); SGPT/ALT 12 U/L (13-61)
[2020-11-22 07:56] LABS: BILIRUBIN,TOTAL 0.4 mg/dL (0.2-1); TOT PROT 5.4 g/dl (6.4-8.2)
[2020-11-22 08:28] LABS: ANION GAP 4 MMOL/L (8-16)
[2020-11-22] MEDS ORDERED: DEXTROSE 50%-WATER - 25 GM/50 ML VIAL IVPUSH ONE (08:45)
[2020-11-22] MEDS ORDERED: CALCIUM GLUCONATE 10% - 1,000 MG/10 ML VIAL IVPUSH ONE (09:00)
[2020-11-22] MEDS ORDERED: INSULIN REGULAR HUMAN 100 UNITS/ML *VIAL IVPUSH ONE (09:00)
[2020-11-22] MEDS ORDERED: VANCOMYCIN 1,000 MG in DEXTROSE 5%-WATER - 250 ML IVPB SCH (09:00)
[2020-11-22] MEDS ORDERED: PIPERACILLIN/TAZOBACTAM 3.375 GM VIAL IVPB ONE ×2 (09:35→16:58)
[2020-11-22] MEDS ORDERED: DEXTROSE 5%-WATER - 50 ML IVPB ONE ×2 (09:36→16:58)
[2020-11-22] MEDS: methylPREDNISolone NA SUCC 40 MG/1 ML VIAL IVPUSH SCH ×2 (09:55→17:09)
[2020-11-22] MEDS ORDERED: PIPERACILLIN/TAZOB 3.375 GM 3.375 GM in DEXTROSE 5%-WATER - 50 ML IVPB SCH (10:00)
[2020-11-22] MEDS ORDERED: INSULIN (NOVOLOG) ASPART 100 UNITS/ML 10ML VIAL ONE (11:50)
[2020-11-22] MEDS ORDERED: DEXTROSE 50%-WATER - 25 GM/50 ML VIAL ONE (11:50)
[2020-11-22] MEDS ORDERED: SODIUM CHLORIDE 250 ML IV STA (13:58)
[2020-11-22] MEDS ORDERED: SODIUM CHLORIDE 1,000 ML IV SCH (14:00)
[2020-11-22] MEDS: SODIUM ZIRCONIUM CYCLOSILICATE (LOKELMA) 5 GM PACKET PO SCH (14:25)
[2020-11-22] MEDS: ALBUTEROL SO4 2.5/IPRATROPIUM 0.5 INH SOL 3 ML VIAL.NEB. NEB SCH ×2 (16:00→20:53)
[2020-11-22] MEDS: PIPERACILLIN/TAZOB 3.375 GM 3.375 GM in DEXTROSE 5%-WATER - 50 ML IVPB SCH (17:13)
[2020-11-22] MEDS ORDERED: VANCOMYCIN 1 GRAM (PRE-DOCKED) 1,000 MG/250 ML BAG IVPB SCH (19:00)
[2020-11-22 19:48] LABS: BLOOD UREA NITROGEN 55.4 mg/dL (7-18)
[2020-11-22 19:51] LABS: CREATININE 1.9 mg/dL (0.55-1.3)
[2020-11-22 22:02] LABS: BASO % 0.2 % (0-2.0); HEMATOCRIT 23.7 % (32.4-45.2); HEMOGLOBIN 7.3 GM/dL (10.7-15.3); LYMPH % 4.4 % (8-40); MCH 29.6 pg (25.7-33.7); MCHC 30.9 g/dl (32.0-36.0); MEAN CELL VOLUME 95.7 fl (80-96); MEAN PLT VOLUME 8.8 fl (7.5-11.1); MONO % 5.3 % (3.8-10.2); NEUT % 90.1 % (42.8-82.8); PLATELET COUNT 320 K/MM3 (134-434); RBC 2.48 M/mm3 (3.60-5.2); RDW 17.2 % (11.6-15.6); WHITE BLOOD COUNT 7.1 K/mm3 (4.0-10.0)
[2020-11-22] MEDS: INSULIN SLIDING SCALE (NOVOLOG) 1 VIAL SQ SCH (23:39)
[2020-11-23] MEDS ORDERED: PIPERACILLIN/TAZOBACTAM 3.375 GM VIAL IVPB ONE ×3 (02:21→16:40)
[2020-11-23] MEDS ORDERED: DEXTROSE 5%-WATER - 50 ML IVPB ONE ×3 (02:22→16:40)
[2020-11-23] MEDS: methylPREDNISolone NA SUCC 40 MG/1 ML VIAL IVPUSH SCH ×3 (02:32→17:16)
[2020-11-23] MEDS: PIPERACILLIN/TAZOB 3.375 GM 3.375 GM in DEXTROSE 5%-WATER - 50 ML IVPB SCH ×3 (02:32→17:16)
[2020-11-23] MEDS ORDERED: INSULIN (NOVOLOG) ASPART 100 UNITS/ML 10ML VIAL ONE ×2 (07:30→17:43)
[2020-11-23] MEDS: INSULIN SLIDING SCALE (NOVOLOG) 1 VIAL SQ SCH ×4 (07:31→22:28)
[2020-11-23 07:36] LABS: BASO % 0.2 % (0-2.0); HEMATOCRIT 24.7 % (32.4-45.2); HEMOGLOBIN 7.8 GM/dL (10.7-15.3); LYMPH % 5.5 % (8-40); MCH 29.9 pg (25.7-33.7); MCHC 31.5 g/dl (32.0-36.0); MEAN CELL VOLUME 94.9 fl (80-96); MEAN PLT VOLUME 8.6 fl (7.5-11.1); MONO % 2.8 % (3.8-10.2); NEUT % 91.5 % (42.8-82.8); PLATELET COUNT 312 K/MM3 (134-434); WHITE BLOOD COUNT 6.7 K/mm3 (4.0-10.0)
[2020-11-23] MEDS: ALBUTEROL SO4 2.5/IPRATROPIUM 0.5 INH SOL 3 ML VIAL.NEB. NEB SCH ×4 (07:40→21:00)
[2020-11-23 07:56] LABS: CHLORIDE 99 mmol/L (98-107); SODIUM 133 mmol/L (136-145)
[2020-11-23 08:06] LABS: ALBUMIN 2.4 g/dl (3.4-5.0); BLOOD UREA NITROGEN 65.4 mg/dL (7-18); CALCIUM 8.5 mg/dL (8.5-10.1); CO2 31 mmol/L (21-32)
[2020-11-23 08:09] LABS: CREATININE 1.8 mg/dL (0.55-1.3); SGOT/AST 8 U/L (15-37); SGPT/ALT 10 U/L (13-61)
[2020-11-23 08:11] LABS: BILIRUBIN,TOTAL 0.3 mg/dL (0.2-1); TOT PROT 5.6 g/dl (6.4-8.2)
[2020-11-23 08:12] LABS: ALK PHOS 81 U/L (45-117)
[2020-11-23 08:13] LABS: ANION GAP 3 MMOL/L (8-16)
[2020-11-23 08:24] LABS: GLUCOSE,RANDOM 431 mg/dL (74-106)
[2020-11-23 09:17] LABS: ANISOCYTOSIS 1+; MACROCYTOSIS 2+; OVALOCYTE 1+; PLATELET ESTIMATE NORMAL
[2020-11-23] MEDS: SODIUM ZIRCONIUM CYCLOSILICATE (LOKELMA) 5 GM PACKET PO SCH (10:22)
[2020-11-23] MEDS ORDERED: SODIUM CHLORIDE 250 ML IV STA (10:42)
[2020-11-23] MEDS ORDERED: SODIUM CHLORIDE 1,000 ML IV SCH (10:45)
[2020-11-23] MEDS ORDERED: metoPROLOL SUCCINATE 25 MG TAB.SR.24H (FP) PO SCH (11:45)
[2020-11-23] MEDS ORDERED: PT OWN MED DRAWER 7, Y5N ONE (12:17)
[2020-11-23] MEDS: FERROUS SO4 325 MG TABLET (FP) PO SCH (12:21)
[2020-11-23] MEDS: ASPIRIN 81 MG CHEWABLE TABLETS PO SCH (12:21)
[2020-11-23] MEDS: INSULIN (LEVEMIR) 100 UNITS/ML UNITS SQ SCH ×2 (12:22→22:28)
[2020-11-23] MEDS: CYANOCOBALAMIN 1,000 MCG TABLET (FP) PO SCH (12:24)
[2020-11-23] MEDS: PANTOPRAZOLE 40 MG TABLET PO SCH (12:24)
[2020-11-23] MEDS: BUDESONIDE/FORMETEROL FUMARATE 80/4.5 mcg INHALER IH SCH ×2 (13:39→22:33)
[2020-11-23 14:21] LABS: CHLORIDE 99 mmol/L (98-107); SODIUM 134 mmol/L (136-145)
[2020-11-23 14:22] LABS: ANION GAP 5 MMOL/L (8-16); BLOOD UREA NITROGEN 70.5 mg/dL (7-18); CALCIUM 8.6 mg/dL (8.5-10.1); CO2 31 mmol/L (21-32)
[2020-11-23 14:26] LABS: CREATININE 1.9 mg/dL (0.55-1.3)
[2020-11-23 14:31] LABS: GLUCOSE,RANDOM 491 mg/dL (74-106)
[2020-11-23] MEDS ORDERED: VANCOMYCIN 1 GRAM (PRE-DOCKED) 1,000 MG/250 ML BAG IVPB SCH (19:00)
[2020-11-23 20:09] LABS: CHLORIDE 99 mmol/L (98-107); SODIUM 134 mmol/L (136-145)
[2020-11-23 20:10] LABS: CALCIUM 8.1 mg/dL (8.5-10.1)
[2020-11-23 20:11] LABS: ANION GAP 6 MMOL/L (8-16); BLOOD UREA NITROGEN 71.6 mg/dL (7-18); CO2 29 mmol/L (21-32)
[2020-11-23 20:14] LABS: CREATININE 2.1 mg/dL (0.55-1.3)
[2020-11-23 20:15] LABS: GLUCOSE,RANDOM 497 mg/dL (74-106)
[2020-11-23] MEDS ORDERED: SODIUM ZIRCONIUM CYCLOSILICATE (LOKELMA) 5 GM PACKET PO ONE (21:45)
[2020-11-23] MEDS: metoPROLOL SUCCINATE 25 MG TAB.SR.24H (FP) PO SCH (22:26)
[2020-11-23] MEDS: HEPARIN NA (PORCINE) 5,000 UNITS/ML 1ML VIAL SQ SCH (22:29)
[2020-11-24] MEDS ORDERED: PIPERACILLIN/TAZOBACTAM 3.375 GM VIAL IVPB ONE ×3 (01:37→17:51)
[2020-11-24] MEDS ORDERED: DEXTROSE 5%-WATER - 50 ML IVPB ONE ×3 (01:38→17:51)
[2020-11-24] MEDS: PIPERACILLIN/TAZOB 3.375 GM 3.375 GM in DEXTROSE 5%-WATER - 50 ML IVPB SCH ×3 (02:24→18:34)
[2020-11-24] MEDS: methylPREDNISolone NA SUCC 40 MG/1 ML VIAL IVPUSH SCH ×3 (02:24→18:34)
[2020-11-24] MEDS: INSULIN (LEVEMIR) 100 UNITS/ML UNITS SQ SCH ×2 (06:12→21:48)
[2020-11-24] MEDS: INSULIN SLIDING SCALE (NOVOLOG) 1 VIAL SQ SCH ×4 (06:12→21:49)
[2020-11-24] MEDS: ALBUTEROL SO4 2.5/IPRATROPIUM 0.5 INH SOL 3 ML VIAL.NEB. NEB SCH ×4 (07:50→20:48)
[2020-11-24 07:59] LABS: BASO % 0.1 % (0-2.0); HEMATOCRIT 24.1 % (32.4-45.2); HEMOGLOBIN 7.9 GM/dL (10.7-15.3); LYMPH % 5.1 % (8-40); MCH 30.4 pg (25.7-33.7); MCHC 32.6 g/dl (32.0-36.0); MEAN CELL VOLUME 93.3 fl (80-96); MEAN PLT VOLUME 8.4 fl (7.5-11.1); MONO % 3.5 % (3.8-10.2); NEUT % 91.3 % (42.8-82.8); PLATELET COUNT 315 K/MM3 (134-434); RBC 2.59 M/mm3 (3.60-5.2); RDW 16.4 % (11.6-15.6)
[2020-11-24 08:04] LABS: OSMOLALITY,SERUM 332 mosm/kg (278-305)
[2020-11-24 08:30] LABS: ALBUMIN 2.4 g/dl (3.4-5.0); BLOOD UREA NITROGEN 69.5 mg/dL (7-18); CALCIUM 8.2 mg/dL (8.5-10.1)
[2020-11-24 08:34] LABS: CREATININE 1.9 mg/dL (0.55-1.3)
[2020-11-24 08:35] LABS: BILIRUBIN,TOTAL 0.2 mg/dL (0.2-1); TOT PROT 5.6 g/dl (6.4-8.2)
[2020-11-24] MEDS ORDERED: FERRIC CARBOXYMALTOSE 750 MG in SODIUM CHLORIDE 250 ML IVPB ONE (10:12)
[2020-11-24 10:25] LABS: ANISOCYTOSIS 1+; MACROCYTOSIS 1+; PLATELET ESTIMATE NORMAL
[2020-11-24] MEDS: ASPIRIN 81 MG CHEWABLE TABLETS PO SCH (10:38)
[2020-11-24] MEDS: PANTOPRAZOLE 40 MG TABLET PO SCH (10:38)
[2020-11-24] MEDS: metoPROLOL SUCCINATE 25 MG TAB.SR.24H (FP) PO SCH ×2 (10:38→21:48)
[2020-11-24] MEDS: FERROUS SO4 325 MG TABLET (FP) PO SCH (10:38)
[2020-11-24] MEDS: HEPARIN NA (PORCINE) 5,000 UNITS/ML 1ML VIAL SQ SCH (10:38)
[2020-11-24] MEDS: BUDESONIDE/FORMETEROL FUMARATE 80/4.5 mcg INHALER IH SCH ×2 (10:39→21:54)
[2020-11-24] MEDS: CYANOCOBALAMIN 1,000 MCG TABLET (FP) PO SCH (10:39)
[2020-11-24] MEDS: SODIUM ZIRCONIUM CYCLOSILICATE (LOKELMA) 5 GM PACKET PO SCH ×2 (10:40→21:49)
[2020-11-24 11:08] LABS: SARS-CoV-2 NAA Not Detected (Not Detected)
[2020-11-24] MEDS: DOCUSATE SODIUM 100 MG CAPSULE (FP) PO SCH (14:34)
[2020-11-24] MEDS: DORZOLAMIDE 2% HCL OPHTHALMIC SOLUTION 10 ML BOTTLE OU SCH (14:34)
[2020-11-24] MEDS: LETROZOLE 2.5 MG TABLET (FP) PO SCH (14:34)
[2020-11-24] MEDS: POLYETHYLENE GLYCOL 3350 119 GM BTL PO SCH (14:34)
[2020-11-24] MEDS ORDERED: ACETAMINOPHEN WITH CODEINE 300MG/30MG TABLET PO PRN (20:36)
[2020-11-24] MEDS ORDERED: INSULIN (NOVOLOG) ASPART 100 UNITS/ML 10ML VIAL ONE (21:22)
[2020-11-24] MEDS: ATORVASTATIN CA 40 MG TABLET (FP) PO SCH (21:48)
[2020-11-25] MEDS ORDERED: PIPERACILLIN/TAZOBACTAM 3.375 GM VIAL IVPB ONE ×2 (01:29→09:09)
[2020-11-25] MEDS ORDERED: DEXTROSE 5%-WATER - 50 ML IVPB ONE ×2 (01:29→09:10)
[2020-11-25] MEDS: PIPERACILLIN/TAZOB 3.375 GM 3.375 GM in DEXTROSE 5%-WATER - 50 ML IVPB SCH ×2 (02:02→09:37)
[2020-11-25] MEDS: methylPREDNISolone NA SUCC 40 MG/1 ML VIAL IVPUSH SCH ×3 (02:03→22:34)
[2020-11-25] MEDS: INSULIN SLIDING SCALE (NOVOLOG) 1 VIAL SQ SCH ×4 (06:44→22:33)
[2020-11-25] MEDS: INSULIN (LEVEMIR) 100 UNITS/ML UNITS SQ SCH ×2 (06:45→22:33)
[2020-11-25] MEDS ORDERED: INSULIN (LEVEMIR) 100 UNITS/ML UNITS SQ ONE (06:51)
[2020-11-25] MEDS: ALBUTEROL SO4 2.5/IPRATROPIUM 0.5 INH SOL 3 ML VIAL.NEB. NEB SCH ×4 (07:14→20:03)
[2020-11-25 07:16] LABS: BASO % 0.1 % (0-2.0); HEMATOCRIT 26.3 % (32.4-45.2); HEMOGLOBIN 8.4 GM/dL (10.7-15.3); LYMPH % 3.3 % (8-40); MEAN CELL VOLUME 93.7 fl (80-96); MEAN PLT VOLUME 8.5 fl (7.5-11.1); MONO % 3.4 % (3.8-10.2); NEUT % 93.2 % (42.8-82.8); PLATELET COUNT 312 K/MM3 (134-434); RDW 16.9 % (11.6-15.6); WHITE BLOOD COUNT 7.2 K/mm3 (4.0-10.0)
[2020-11-25 07:35] LABS: ALBUMIN 2.4 g/dl (3.4-5.0); BLOOD UREA NITROGEN 72.9 mg/dL (7-18); CALCIUM 8.2 mg/dL (8.5-10.1)
[2020-11-25 07:39] LABS: CREATININE 1.9 mg/dL (0.55-1.3)
[2020-11-25 07:40] LABS: BILIRUBIN,TOTAL 0.2 mg/dL (0.2-1); TOT PROT 5.6 g/dl (6.4-8.2)
[2020-11-25 10:37] LABS: ANISOCYTOSIS 0; MACROCYTOSIS 1+; PLATELET ESTIMATE NORMAL
[2020-11-25] MEDS: SODIUM ZIRCONIUM CYCLOSILICATE (LOKELMA) 5 GM PACKET PO SCH ×2 (11:53→22:35)
[2020-11-25] MEDS: FERROUS SO4 325 MG TABLET (FP) PO SCH (11:53)
[2020-11-25] MEDS: DOCUSATE SODIUM 100 MG CAPSULE (FP) PO SCH (11:53)
[2020-11-25] MEDS: CYANOCOBALAMIN 1,000 MCG TABLET (FP) PO SCH (11:53)
[2020-11-25] MEDS: metoPROLOL SUCCINATE 25 MG TAB.SR.24H (FP) PO SCH ×2 (11:54→22:34)
[2020-11-25] MEDS: ASPIRIN 81 MG CHEWABLE TABLETS PO SCH (11:54)
[2020-11-25] MEDS: PANTOPRAZOLE 40 MG TABLET PO SCH (11:54)
[2020-11-25] MEDS: BUDESONIDE/FORMETEROL FUMARATE 80/4.5 mcg INHALER IH SCH ×2 (11:54→22:35)
[2020-11-25] MEDS: DORZOLAMIDE 2% HCL OPHTHALMIC SOLUTION 10 ML BOTTLE OU SCH (11:57)
[2020-11-25] MEDS ORDERED: methylPREDNISolone NA SUCC 40 MG/1 ML VIAL IVPUSH SCH (12:00)
[2020-11-25] MEDS: POLYETHYLENE GLYCOL 3350 119 GM BTL PO SCH (12:16)
[2020-11-25] MEDS: LETROZOLE 2.5 MG TABLET (FP) PO SCH (12:16)
[2020-11-25] MEDS ORDERED: FUROSEMIDE 40 MG/4 ML INJECTABLE VIAL IVPUSH ONE (13:42)
[2020-11-25] MEDS ORDERED: ALBUTEROL SO4 0.083% IH SOL 2.5 MG/3 ML VIAL.NEB. NEB PRN (14:36)
[2020-11-25] MEDS ORDERED: ALBUTEROL SO4 0.083% IH SOL 2.5 MG/3 ML VIAL.NEB. NEB SCH (16:00)
[2020-11-25] MEDS ORDERED: ACETYLCYSTEINE 20% 200MG/ML 30 ML VIAL *FOR ORAL / INH USE ONLY NEB SCH (16:00)
[2020-11-25] MEDS: ATORVASTATIN CA 40 MG TABLET (FP) PO SCH (22:34)
[2020-11-26] MEDS: INSULIN (LEVEMIR) 100 UNITS/ML UNITS SQ SCH ×2 (06:11→21:54)
[2020-11-26] MEDS: INSULIN SLIDING SCALE (NOVOLOG) 1 VIAL SQ SCH ×4 (06:12→21:54)
[2020-11-26 07:08] LABS: BASO % 0.1 % (0-2.0); HEMATOCRIT 24.2 % (32.4-45.2); HEMOGLOBIN 7.6 GM/dL (10.7-15.3); LYMPH % 3.4 % (8-40); MCH 29.6 pg (25.7-33.7); MCHC 31.3 g/dl (32.0-36.0); MEAN CELL VOLUME 94.6 fl (80-96); MEAN PLT VOLUME 8.9 fl (7.5-11.1); MONO % 6.4 % (3.8-10.2); NEUT % 90.1 % (42.8-82.8); PLATELET COUNT 286 K/MM3 (134-434); RBC 2.56 M/mm3 (3.60-5.2); RDW 16.7 % (11.6-15.6); WHITE BLOOD COUNT 10.3 K/mm3 (4.0-10.0)
[2020-11-26 07:34] LABS: BLOOD UREA NITROGEN 78.1 mg/dL (7-18); CALCIUM 8.5 mg/dL (8.5-10.1)
[2020-11-26 07:35] LABS: ALBUMIN 2.4 g/dl (3.4-5.0)
[2020-11-26 07:38] LABS: CREATININE 1.7 mg/dL (0.55-1.3)
[2020-11-26 07:39] LABS: TOT PROT 5.4 g/dl (6.4-8.2)
[2020-11-26 07:41] LABS: BILIRUBIN,TOTAL 0.2 mg/dL (0.2-1)
[2020-11-26] MEDS: ALBUTEROL SO4 2.5/IPRATROPIUM 0.5 INH SOL 3 ML VIAL.NEB. NEB SCH ×4 (08:32→20:38)
[2020-11-26] MEDS ORDERED: PT OWN MED DRAWER 7, Y5N ONE (09:25)
[2020-11-26] MEDS: SODIUM ZIRCONIUM CYCLOSILICATE (LOKELMA) 5 GM PACKET PO SCH ×2 (09:36→21:54)
[2020-11-26] MEDS: methylPREDNISolone NA SUCC 40 MG/1 ML VIAL IVPUSH SCH ×2 (09:36→21:55)
[2020-11-26] MEDS: ASPIRIN 81 MG CHEWABLE TABLETS PO SCH (09:36)
[2020-11-26] MEDS: LETROZOLE 2.5 MG TABLET (FP) PO SCH (09:37)
[2020-11-26] MEDS: PANTOPRAZOLE 40 MG TABLET PO SCH (09:37)
[2020-11-26] MEDS: metoPROLOL SUCCINATE 25 MG TAB.SR.24H (FP) PO SCH ×2 (09:37→21:55)
[2020-11-26] MEDS: CYANOCOBALAMIN 1,000 MCG TABLET (FP) PO SCH (09:37)
[2020-11-26] MEDS: FERROUS SO4 325 MG TABLET (FP) PO SCH (09:37)
[2020-11-26] MEDS: POLYETHYLENE GLYCOL 3350 119 GM BTL PO SCH (09:37)
[2020-11-26] MEDS: DOCUSATE SODIUM 100 MG CAPSULE (FP) PO SCH (09:37)
[2020-11-26] MEDS: DORZOLAMIDE 2% HCL OPHTHALMIC SOLUTION 10 ML BOTTLE OU SCH (09:38)
[2020-11-26] MEDS: BUDESONIDE/FORMETEROL FUMARATE 80/4.5 mcg INHALER IH SCH ×2 (09:38→21:55)
[2020-11-26 10:18] LABS: ANISOCYTOSIS 1+; MACROCYTOSIS 1+; PLATELET ESTIMATE NORMAL
[2020-11-26] MEDS ORDERED: FUROSEMIDE 40 MG/4 ML INJECTABLE VIAL IVPUSH ONE (11:36)
[2020-11-26 15:06] LABS: N-TERMINAL BNP 2997.9 pg/ml (5-450)
[2020-11-26] MEDS: ATORVASTATIN CA 40 MG TABLET (FP) PO SCH (21:54)
[2020-11-27] MEDS: INSULIN (LEVEMIR) 100 UNITS/ML UNITS SQ SCH ×2 (07:00→21:50)
[2020-11-27] MEDS: INSULIN SLIDING SCALE (NOVOLOG) 1 VIAL SQ SCH ×4 (07:00→21:50)
[2020-11-27] MEDS ORDERED: INSULIN (LEVEMIR) 100 UNITS/ML UNITS SQ ONE (07:08)
[2020-11-27] MEDS ORDERED: INSULIN (NOVOLOG) ASPART 100 UNITS/ML 10ML VIAL ONE ×2 (07:09→17:29)
[2020-11-27 07:11] LABS: CALCIUM 8.3 mg/dL (8.5-10.1)
[2020-11-27 07:12] LABS: ALBUMIN 2.2 g/dl (3.4-5.0); BASO % 0.1 % (0-2.0); BILIRUBIN,TOTAL 0.2 mg/dL (0.2-1); HEMATOCRIT 21.1 % (32.4-45.2); LYMPH % 5.3 % (8-40); MCH 30.1 pg (25.7-33.7); MCHC 32.6 g/dl (32.0-36.0); MEAN CELL VOLUME 92.6 fl (80-96); MEAN PLT VOLUME 8.8 fl (7.5-11.1); MONO % 4.6 % (3.8-10.2); PLATELET COUNT 273 K/MM3 (134-434); RBC 2.28 M/mm3 (3.60-5.2); RDW 16.8 % (11.6-15.6); WHITE BLOOD COUNT 7.7 K/mm3 (4.0-10.0)
[2020-11-27 07:14] LABS: CREATININE 1.6 mg/dL (0.55-1.3)
[2020-11-27 07:16] LABS: TOT PROT 5.1 g/dl (6.4-8.2)
[2020-11-27 07:30] LABS: IRON SERUM 237 ug/dL (50-175); TOTAL IRON BINDING CAPACITY 233 ug/dL (250-450)
[2020-11-27 07:37] LABS: HEMOGLOBIN 6.9 GM/dL (10.7-15.3)
[2020-11-27] MEDS: ALBUTEROL SO4 2.5/IPRATROPIUM 0.5 INH SOL 3 ML VIAL.NEB. NEB SCH ×4 (08:32→20:25)
[2020-11-27] MEDS ORDERED: PT OWN MED DRAWER 7, Y5N ONE (08:53)
[2020-11-27 09:25] LABS: ANISOCYTOSIS 1+; PLATELET ESTIMATE NORMAL
[2020-11-27] MEDS: ASPIRIN 81 MG CHEWABLE TABLETS PO SCH (10:44)
[2020-11-27] MEDS: FERROUS SO4 325 MG TABLET (FP) PO SCH (10:44)
[2020-11-27] MEDS: metoPROLOL SUCCINATE 25 MG TAB.SR.24H (FP) PO SCH ×2 (10:44→21:49)
[2020-11-27] MEDS: CYANOCOBALAMIN 1,000 MCG TABLET (FP) PO SCH (10:44)
[2020-11-27] MEDS: DORZOLAMIDE 2% HCL OPHTHALMIC SOLUTION 10 ML BOTTLE OU SCH (10:44)
[2020-11-27] MEDS: DOCUSATE SODIUM 100 MG CAPSULE (FP) PO SCH (10:44)
[2020-11-27] MEDS: PANTOPRAZOLE 40 MG TABLET PO SCH (10:44)
[2020-11-27] MEDS: LETROZOLE 2.5 MG TABLET (FP) PO SCH (10:44)
[2020-11-27] MEDS: POLYETHYLENE GLYCOL 3350 119 GM BTL PO SCH (10:45)
[2020-11-27] MEDS: SODIUM ZIRCONIUM CYCLOSILICATE (LOKELMA) 5 GM PACKET PO SCH ×2 (10:45→21:49)
[2020-11-27] MEDS: BUDESONIDE/FORMETEROL FUMARATE 80/4.5 mcg INHALER IH SCH ×2 (10:45→21:55)
[2020-11-27] MEDS: methylPREDNISolone NA SUCC 40 MG/1 ML VIAL IVPUSH SCH ×2 (10:45→21:50)
[2020-11-27] MEDS ORDERED: FUROSEMIDE 40 MG/4 ML INJECTABLE VIAL IVPUSH ONE (12:38)
[2020-11-27] MEDS: ACETAMINOPHEN 325 MG TABLET (FP) PO PRN (19:06)
[2020-11-27] MEDS: ATORVASTATIN CA 40 MG TABLET (FP) PO SCH (21:49)
[2020-11-28 06:48] LABS: HEMATOCRIT 25.8 % (32.4-45.2); HEMOGLOBIN 8.6 GM/dL (10.7-15.3); LYMPH % 4.3 % (8-40); MCHC 33.4 g/dl (32.0-36.0); MEAN PLT VOLUME 8.9 fl (7.5-11.1); MONO % 4.8 % (3.8-10.2); NEUT % 90.9 % (42.8-82.8); PLATELET COUNT 275 K/MM3 (134-434); RBC 2.77 M/mm3 (3.60-5.2); WHITE BLOOD COUNT 10.2 K/mm3 (4.0-10.0)
[2020-11-28 06:58] LABS: CALCIUM 8.7 mg/dL (8.5-10.1)
[2020-11-28 06:59] LABS: ALBUMIN 2.4 g/dl (3.4-5.0)
[2020-11-28 07:02] LABS: CREATININE 1.2 mg/dL (0.55-1.3)
[2020-11-28 07:03] LABS: BILIRUBIN,TOTAL 0.3 mg/dL (0.2-1)
[2020-11-28 07:07] LABS: TOT PROT 5.3 g/dl (6.4-8.2)
[2020-11-28] MEDS: INSULIN SLIDING SCALE (NOVOLOG) 1 VIAL SQ SCH ×4 (07:15→22:06)
[2020-11-28 09:08] LABS: ANISOCYTOSIS 2+; MACROCYTOSIS 0; PLATELET ESTIMATE NORMAL
[2020-11-28] MEDS: ALBUTEROL SO4 2.5/IPRATROPIUM 0.5 INH SOL 3 ML VIAL.NEB. NEB SCH ×4 (09:25→20:52)
[2020-11-28] MEDS: INSULIN (LEVEMIR) 100 UNITS/ML UNITS SQ SCH ×2 (10:47→22:01)
[2020-11-28] MEDS: methylPREDNISolone NA SUCC 40 MG/1 ML VIAL IVPUSH SCH ×2 (10:48→21:56)
[2020-11-28] MEDS: ASPIRIN 81 MG CHEWABLE TABLETS PO SCH (10:49)
[2020-11-28] MEDS: FERROUS SO4 325 MG TABLET (FP) PO SCH (10:49)
[2020-11-28] MEDS: CYANOCOBALAMIN 1,000 MCG TABLET (FP) PO SCH (10:49)
[2020-11-28] MEDS: POLYETHYLENE GLYCOL 3350 119 GM BTL PO SCH (10:49)
[2020-11-28] MEDS: PANTOPRAZOLE 40 MG TABLET PO SCH (10:49)
[2020-11-28] MEDS: BUDESONIDE/FORMETEROL FUMARATE 80/4.5 mcg INHALER IH SCH ×2 (10:49→22:09)
[2020-11-28] MEDS: DOCUSATE SODIUM 100 MG CAPSULE (FP) PO SCH (10:49)
[2020-11-28] MEDS: metoPROLOL SUCCINATE 25 MG TAB.SR.24H (FP) PO SCH ×2 (10:49→22:09)
[2020-11-28] MEDS: LETROZOLE 2.5 MG TABLET (FP) PO SCH (10:50)
[2020-11-28] MEDS: SODIUM ZIRCONIUM CYCLOSILICATE (LOKELMA) 5 GM PACKET PO SCH ×2 (10:50)
[2020-11-28] MEDS: DORZOLAMIDE 2% HCL OPHTHALMIC SOLUTION 10 ML BOTTLE OU SCH (10:50)
[2020-11-28] MEDS ORDERED: PT OWN MED DRAWER 7, Y5N ONE (10:53)
[2020-11-28] MEDS ORDERED: INSULIN (LEVEMIR) 100 UNITS/ML UNITS SQ ONE (11:59)
[2020-11-28] MEDS ORDERED: INSULIN (NOVOLOG) ASPART 100 UNITS/ML 10ML VIAL ONE ×2 (12:00→16:18)
[2020-11-28] MEDS ORDERED: FUROSEMIDE 40 MG/4 ML INJECTABLE VIAL IVPUSH ONE (14:30)
[2020-11-28] MEDS: ATORVASTATIN CA 40 MG TABLET (FP) PO SCH (21:56)
[2020-11-29] MEDS: INSULIN (LEVEMIR) 100 UNITS/ML UNITS SQ SCH ×2 (07:17→22:14)
[2020-11-29] MEDS: INSULIN SLIDING SCALE (NOVOLOG) 1 VIAL SQ SCH ×4 (07:20→22:15)
[2020-11-29 08:06] LABS: IGA IMMUNOGLOBULIN 241 mg/dL (64-422); IGG QN IMMUNOGLOBULIN 585 mg/dL (586-1602); IGM QN SERUM 20 mg/dL (26-217)
[2020-11-29] MEDS: ALBUTEROL SO4 2.5/IPRATROPIUM 0.5 INH SOL 3 ML VIAL.NEB. NEB SCH ×4 (08:38→20:13)
[2020-11-29] MEDS: DOCUSATE SODIUM 100 MG CAPSULE (FP) PO SCH (10:10)
[2020-11-29] MEDS: ASPIRIN 81 MG CHEWABLE TABLETS PO SCH (10:10)
[2020-11-29] MEDS: FERROUS SO4 325 MG TABLET (FP) PO SCH (10:10)
[2020-11-29] MEDS: SODIUM ZIRCONIUM CYCLOSILICATE (LOKELMA) 5 GM PACKET PO SCH ×2 (10:10→10:33)
[2020-11-29] MEDS: methylPREDNISolone NA SUCC 40 MG/1 ML VIAL IVPUSH SCH ×2 (10:11→22:13)
[2020-11-29] MEDS: PANTOPRAZOLE 40 MG TABLET PO SCH (10:11)
[2020-11-29] MEDS: POLYETHYLENE GLYCOL 3350 119 GM BTL PO SCH (10:11)
[2020-11-29] MEDS: BUDESONIDE/FORMETEROL FUMARATE 80/4.5 mcg INHALER IH SCH ×2 (10:12→22:14)
[2020-11-29] MEDS: metoPROLOL SUCCINATE 25 MG TAB.SR.24H (FP) PO SCH ×2 (10:12→22:13)
[2020-11-29] MEDS: DORZOLAMIDE 2% HCL OPHTHALMIC SOLUTION 10 ML BOTTLE OU SCH (10:13)
[2020-11-29] MEDS: CYANOCOBALAMIN 1,000 MCG TABLET (FP) PO SCH (10:13)
[2020-11-29] MEDS ORDERED: PT OWN MED DRAWER 7, Y5N ONE (10:27)
[2020-11-29] MEDS: LETROZOLE 2.5 MG TABLET (FP) PO SCH (10:32)
[2020-11-29 12:58] LABS: ALLENS TEST POSITIVE; ARTERIAL BLD GAS O2 SATURATION 88.1 mmHg (95-98); ARTERIAL BLOOD GAS BASE EXCESS 5.4 mmol/L (-2-2); ARTERIAL BLOOD GAS pH 7.365 (7.350-7.450)
[2020-11-29 14:07] LABS: BASO % 0.1 % (0-2.0); EOS % 0.1 % (0-4.5); HEMOGLOBIN 7.9 GM/dL (10.7-15.3); LYMPH % 3.7 % (8-40); MCHC 33.1 g/dl (32.0-36.0); MEAN CELL VOLUME 93.7 fl (80-96); MEAN PLT VOLUME 8.4 fl (7.5-11.1); NEUT % 92.1 % (42.8-82.8); PLATELET COUNT 258 K/MM3 (134-434); RBC 2.56 M/mm3 (3.60-5.2); RDW 16.5 % (11.6-15.6); WHITE BLOOD COUNT 10.4 K/mm3 (4.0-10.0)
[2020-11-29 14:33] LABS: CALCIUM 8.4 mg/dL (8.5-10.1)
[2020-11-29 14:34] LABS: ALBUMIN 2.4 g/dl (3.4-5.0); BLOOD UREA NITROGEN 94.6 mg/dL (7-18)
[2020-11-29 14:37] LABS: CREATININE 1.2 mg/dL (0.55-1.3)
[2020-11-29 14:39] LABS: BILIRUBIN,TOTAL 0.2 mg/dL (0.2-1); TOT PROT 5.1 g/dl (6.4-8.2)
[2020-11-29 15:53] LABS: PLATELET ESTIMATE NORMAL
[2020-11-29] MEDS: ATORVASTATIN CA 40 MG TABLET (FP) PO SCH (22:13)
[2020-11-29 23:21] LABS: EPI CELLS 1 /uL (0-25.1); HYALINE CASTS 3 /uL (0-3.1); URINE APPEARANCE CLOUDY; URINE BACTERIA 2395 /uL (0-1359); URINE BILIRUBIN NEGATIVE (NEGATIVE); URINE COLOR YELLOW; URINE GLUCOSE (UA) 1+ (NEGATIVE); URINE KETONE NEGATIVE (NEGATIVE); URINE LEUK ESTERASE 2+ (NEGATIVE); URINE NITRITE NEGATIVE (NEGATIVE); URINE PROTEIN TRACE (NEGATIVE); URINE UROBILINOGEN 0.2 mg/dL (0.2-1.0); URINE WBC 394 /uL (0-25.8)
[2020-11-29 23:51] LABS: URINE RBC 185.7 /uL (0-23.9); YEAST MANY (NEGATIVE)
[2020-11-30] MEDS: INSULIN SLIDING SCALE (NOVOLOG) 1 VIAL SQ SCH ×4 (06:53→22:43)
[2020-11-30 06:59] LABS: BASO % 0.2 % (0-2.0); HEMOGLOBIN 7.3 GM/dL (10.7-15.3); LYMPH % 4.1 % (8-40); MCH 30.1 pg (25.7-33.7); MCHC 31.6 g/dl (32.0-36.0); MEAN CELL VOLUME 95.2 fl (80-96); MEAN PLT VOLUME 8.9 fl (7.5-11.1); NEUT % 92.7 % (42.8-82.8); PLATELET COUNT 234 K/MM3 (134-434); RBC 2.42 M/mm3 (3.60-5.2); RDW 16.4 % (11.6-15.6); WHITE BLOOD COUNT 12.9 K/mm3 (4.0-10.0)
[2020-11-30 07:24] LABS: ALBUMIN 2.4 g/dl (3.4-5.0); BLOOD UREA NITROGEN 91.5 mg/dL (7-18); MAGNESIUM 1.8 mg/dL (1.8-2.4)
[2020-11-30 07:27] LABS: CREATININE 1.1 mg/dL (0.55-1.3); PHOSPHOROUS 3.4 mg/dL (2.5-4.9)
[2020-11-30 07:29] LABS: BILIRUBIN,TOTAL 0.2 mg/dL (0.2-1); TOT PROT 4.9 g/dl (6.4-8.2)
[2020-11-30] MEDS: ALBUTEROL SO4 2.5/IPRATROPIUM 0.5 INH SOL 3 ML VIAL.NEB. NEB SCH ×2 (07:30→11:21)
[2020-11-30] MEDS: INSULIN (LEVEMIR) 100 UNITS/ML UNITS SQ SCH ×2 (07:39→22:37)
[2020-11-30] MEDS ORDERED: PT OWN MED DRAWER 7, Y5N ONE (09:41)
[2020-11-30] MEDS: PANTOPRAZOLE 40 MG TABLET PO SCH (09:57)
[2020-11-30] MEDS: FERROUS SO4 325 MG TABLET (FP) PO SCH (09:57)
[2020-11-30] MEDS: CYANOCOBALAMIN 1,000 MCG TABLET (FP) PO SCH (09:57)
[2020-11-30] MEDS: DOCUSATE SODIUM 100 MG CAPSULE (FP) PO SCH (09:58)
[2020-11-30] MEDS: LETROZOLE 2.5 MG TABLET (FP) PO SCH (09:58)
[2020-11-30] MEDS: SODIUM ZIRCONIUM CYCLOSILICATE (LOKELMA) 5 GM PACKET PO SCH ×2 (09:59→10:17)
[2020-11-30] MEDS: ASPIRIN 81 MG CHEWABLE TABLETS PO SCH (09:59)
[2020-11-30] MEDS: methylPREDNISolone NA SUCC 40 MG/1 ML VIAL IVPUSH SCH (09:59)
[2020-11-30] MEDS: metoPROLOL SUCCINATE 25 MG TAB.SR.24H (FP) PO SCH ×2 (10:00→22:27)
[2020-11-30] MEDS: DORZOLAMIDE 2% HCL OPHTHALMIC SOLUTION 10 ML BOTTLE OU SCH (10:01)
[2020-11-30] MEDS: BUDESONIDE/FORMETEROL FUMARATE 80/4.5 mcg INHALER IH SCH ×2 (10:01→22:28)
[2020-11-30] MEDS: POLYETHYLENE GLYCOL 3350 119 GM BTL PO SCH (10:17)
[2020-11-30 10:47] LABS: ANISOCYTOSIS 1+; MACROCYTOSIS 1+; OVALOCYTE 1+; PLATELET ESTIMATE NORMAL; TEAR DROP CELLS 1+; TOXIC GRANULATION 1+
[2020-11-30] MEDS ORDERED: FUROSEMIDE 40 MG/4 ML INJECTABLE VIAL IVPUSH ONE (12:15)
[2020-11-30] MEDS: ACETAMINOPHEN 325 MG TABLET (FP) PO PRN (13:51)
[2020-11-30] MEDS: ATORVASTATIN CA 40 MG TABLET (FP) PO SCH (22:27)
[2020-12-01] MEDS: INSULIN SLIDING SCALE (NOVOLOG) 1 VIAL SQ SCH ×4 (06:21→21:49)
[2020-12-01 07:27] LABS: BASO % 0.1 % (0-2.0); EOS % 0.8 % (0-4.5); HEMOGLOBIN 7.4 GM/dL (10.7-15.3); LYMPH % 12.7 % (8-40); MCH 30.6 pg (25.7-33.7); MCHC 32.1 g/dl (32.0-36.0); MEAN CELL VOLUME 95.5 fl (80-96); MEAN PLT VOLUME 9.1 fl (7.5-11.1); MONO % 7.6 % (3.8-10.2); NEUT % 78.8 % (42.8-82.8); PLATELET COUNT 243 K/MM3 (134-434); RBC 2.41 M/mm3 (3.60-5.2); RDW 16.9 % (11.6-15.6); WHITE BLOOD COUNT 9.5 K/mm3 (4.0-10.0)
[2020-12-01 07:50] LABS: CALCIUM 7.9 mg/dL (8.5-10.1)
[2020-12-01 07:51] LABS: ALBUMIN 2.4 g/dl (3.4-5.0); BLOOD UREA NITROGEN 91.6 mg/dL (7-18)
[2020-12-01 07:56] LABS: BILIRUBIN,TOTAL 0.3 mg/dL (0.2-1); TOT PROT 4.8 g/dl (6.4-8.2)
[2020-12-01] MEDS: INSULIN (LEVEMIR) 100 UNITS/ML UNITS SQ SCH ×2 (08:06→21:50)
[2020-12-01] MEDS: ACETAMINOPHEN 325 MG TABLET (FP) PO PRN (09:12)
[2020-12-01] MEDS: SODIUM ZIRCONIUM CYCLOSILICATE (LOKELMA) 5 GM PACKET PO SCH ×2 (09:13)
[2020-12-01] MEDS: DOCUSATE SODIUM 100 MG CAPSULE (FP) PO SCH (09:14)
[2020-12-01] MEDS: FERROUS SO4 325 MG TABLET (FP) PO SCH (09:14)
[2020-12-01] MEDS: CYANOCOBALAMIN 1,000 MCG TABLET (FP) PO SCH (09:14)
[2020-12-01] MEDS: metoPROLOL SUCCINATE 25 MG TAB.SR.24H (FP) PO SCH ×2 (09:14→21:48)
[2020-12-01] MEDS: PANTOPRAZOLE 40 MG TABLET PO SCH ×2 (09:14→21:48)
[2020-12-01] MEDS: ASPIRIN 81 MG CHEWABLE TABLETS PO SCH (09:14)
[2020-12-01] MEDS: FUROSEMIDE 40 MG/4 ML INJECTABLE VIAL IVPUSH SCH (09:14)
[2020-12-01] MEDS: DORZOLAMIDE 2% HCL OPHTHALMIC SOLUTION 10 ML BOTTLE OU SCH (09:15)
[2020-12-01] MEDS: BUDESONIDE/FORMETEROL FUMARATE 80/4.5 mcg INHALER IH SCH ×2 (09:15→21:52)
[2020-12-01] MEDS: POLYETHYLENE GLYCOL 3350 119 GM BTL PO SCH ×2 (09:18→21:53)
[2020-12-01] MEDS ORDERED: PT OWN MED DRAWER 7, Y5N ONE (09:57)
[2020-12-01] MEDS: LETROZOLE 2.5 MG TABLET (FP) PO SCH (09:59)
[2020-12-01] MEDS ORDERED: predniSONE 20 MG TABLET (UD) PO SCH (10:00)
[2020-12-01] MEDS ORDERED: traMADol HCL 50 MG TABLET PO PRN (11:05)
[2020-12-01] MEDS ORDERED: ACETAMINOPHEN 325 MG TABLET (FP) PO PRN (11:06)
[2020-12-01 11:17] LABS: ANISOCYTOSIS 1+; MACROCYTOSIS 1+; PLATELET ESTIMATE NORMAL
[2020-12-01] MEDS ORDERED: FUROSEMIDE 40 MG/4 ML INJECTABLE VIAL IVPUSH ONE (14:00)
[2020-12-01 16:17] LABS: EPI CELLS 27 /uL (0-25.1); HYALINE CASTS 2 /uL (0-3.1); PH,URINE 5.5 (5.0-8.0); URINE APPEARANCE CLEAR; URINE BACTERIA 14 /uL (0-1359); URINE BILIRUBIN NEGATIVE (NEGATIVE); URINE COLOR YELLOW; URINE GLUCOSE (UA) NEGATIVE (NEGATIVE); URINE KETONE NEGATIVE (NEGATIVE); URINE LEUK ESTERASE 1+ (NEGATIVE); URINE NITRITE NEGATIVE (NEGATIVE); URINE PROTEIN NEGATIVE (NEGATIVE); URINE RBC 10 /uL (0-23.9); URINE UROBILINOGEN 0.2 mg/dL (0.2-1.0); URINE WBC 138 /uL (0-25.8)
[2020-12-01] MEDS: oxyCODONE HCL 5 MG TABLET PO PRN (18:05)
[2020-12-01] MEDS: SENNOSIDES 8.6MG TABLET (FP) PO SCH (21:47)
[2020-12-01] MEDS: ATORVASTATIN CA 40 MG TABLET (FP) PO SCH (21:47)
[2020-12-02 02:45] LABS: YEAST PRESENT (NEGATIVE)
[2020-12-02] MEDS ORDERED: DEXTROSE 50%-WATER 25 GM/50 ML DISP.SYRIN ONE (05:50)
[2020-12-02] MEDS: INSULIN (LEVEMIR) 100 UNITS/ML UNITS SQ SCH ×2 (06:17→21:08)
[2020-12-02] MEDS: INSULIN SLIDING SCALE (NOVOLOG) 1 VIAL SQ SCH ×4 (06:17→21:15)
[2020-12-02] MEDS ORDERED: DEXTROSE 50%-WATER - 25 GM/50 ML VIAL IVPUSH ONE (06:30)
[2020-12-02 06:45] LABS: CHLORIDE 103 mmol/L (98-107); SODIUM 145 mmol/L (136-145)
[2020-12-02 06:47] LABS: ANION GAP 4 MMOL/L (8-16); BLOOD UREA NITROGEN 84.9 mg/dL (7-18); CALCIUM 8.2 mg/dL (8.5-10.1); CO2 39 mmol/L (21-32)
[2020-12-02 06:50] LABS: SGOT/AST 23 U/L (15-37); SGPT/ALT 22 U/L (13-61)
[2020-12-02 06:52] LABS: BILIRUBIN,TOTAL 0.2 mg/dL (0.2-1); TOT PROT 5.7 g/dl (6.4-8.2)
[2020-12-02 06:53] LABS: ALK PHOS 75 U/L (45-117)
[2020-12-02 07:07] LABS: GLUCOSE,RANDOM 13 mg/dL (74-106)
[2020-12-02 08:28] LABS: HEMATOCRIT 21.8 % (32.4-45.2); HEMOGLOBIN 7.2 GM/dL (10.7-15.3); MCH 31.1 pg (25.7-33.7); MEAN CELL VOLUME 94.2 fl (80-96); MEAN PLT VOLUME 8.7 fl (7.5-11.1); NEUT % 83.6 % (42.8-82.8); PLATELET COUNT 243 K/MM3 (134-434); RBC 2.32 M/mm3 (3.60-5.2); WHITE BLOOD COUNT 8.6 K/mm3 (4.0-10.0)
[2020-12-02 08:29] LABS: BASO % 0.2 % (0-2.0); EOS % 0.4 % (0-4.5); LYMPH % 8.4 % (8-40); MONO % 7.4 % (3.8-10.2)
[2020-12-02] MEDS: metoPROLOL SUCCINATE 25 MG TAB.SR.24H (FP) PO SCH ×2 (10:08→21:07)
[2020-12-02] MEDS: predniSONE 20 MG TABLET (UD) PO SCH (10:08)
[2020-12-02] MEDS: CYANOCOBALAMIN 1,000 MCG TABLET (FP) PO SCH (10:08)
[2020-12-02] MEDS: TAMSULOSIN HCL 0.4 MG CAP PO SCH (10:08)
[2020-12-02] MEDS: ASPIRIN 81 MG CHEWABLE TABLETS PO SCH (10:08)
[2020-12-02] MEDS: PANTOPRAZOLE 40 MG TABLET PO SCH ×2 (10:08→21:07)
[2020-12-02] MEDS: FERROUS SO4 325 MG TABLET (FP) PO SCH (10:08)
[2020-12-02] MEDS: DOCUSATE SODIUM 100 MG CAPSULE (FP) PO SCH (10:08)
[2020-12-02] MEDS: FUROSEMIDE 40 MG/4 ML INJECTABLE VIAL IVPUSH SCH ×2 (10:09→13:34)
[2020-12-02] MEDS: LETROZOLE 2.5 MG TABLET (FP) PO SCH (10:09)
[2020-12-02] MEDS: SODIUM ZIRCONIUM CYCLOSILICATE (LOKELMA) 5 GM PACKET PO SCH ×2 (10:09→10:10)
[2020-12-02] MEDS: POLYETHYLENE GLYCOL 3350 119 GM BTL PO SCH ×2 (10:10→21:08)
[2020-12-02] MEDS: BUDESONIDE/FORMETEROL FUMARATE 80/4.5 mcg INHALER IH SCH ×2 (10:10→21:08)
[2020-12-02] MEDS: DORZOLAMIDE 2% HCL OPHTHALMIC SOLUTION 10 ML BOTTLE OU SCH (10:10)
[2020-12-02 10:55] LABS: ANISOCYTOSIS 1+; MACROCYTOSIS 0; PLATELET ESTIMATE NORMAL
[2020-12-02] MEDS: oxyCODONE HCL 5 MG TABLET PO PRN ×2 (17:36→23:52)
[2020-12-02] MEDS ORDERED: INSULIN (NOVOLOG) ASPART 100 UNITS/ML 10ML VIAL ONE (20:48)
[2020-12-02] MEDS: traMADol HCL 50 MG TABLET PO PRN (20:54)
[2020-12-02] MEDS: SENNOSIDES 8.6MG TABLET (FP) PO SCH (21:07)
[2020-12-02] MEDS: ATORVASTATIN CA 40 MG TABLET (FP) PO SCH (21:08)
[2020-12-03] MEDS: oxyCODONE HCL 5 MG TABLET PO PRN ×3 (04:09→21:34)
[2020-12-03] MEDS: INSULIN SLIDING SCALE (NOVOLOG) 1 VIAL SQ SCH ×4 (06:05→21:43)
[2020-12-03] MEDS: FUROSEMIDE 40 MG/4 ML INJECTABLE VIAL IVPUSH SCH ×2 (06:05→17:25)
[2020-12-03] MEDS: INSULIN (LEVEMIR) 100 UNITS/ML UNITS SQ SCH ×2 (07:42→21:45)
[2020-12-03 08:27] LABS: BASO % 0.2 % (0-2.0); EOS % 0.6 % (0-4.5); HEMATOCRIT 19.6 % (32.4-45.2); LYMPH % 7.6 % (8-40); MCH 31.1 pg (25.7-33.7); MCHC 32.6 g/dl (32.0-36.0); MEAN CELL VOLUME 95.6 fl (80-96); MEAN PLT VOLUME 8.9 fl (7.5-11.1); MONO % 7.1 % (3.8-10.2); NEUT % 84.5 % (42.8-82.8); PLATELET COUNT 218 K/MM3 (134-434); RBC 2.05 M/mm3 (3.60-5.2); RDW 17.7 % (11.6-15.6); WHITE BLOOD COUNT 9.8 K/mm3 (4.0-10.0)
[2020-12-03 08:43] LABS: HEMOGLOBIN 6.4 GM/dL (10.7-15.3)
[2020-12-03 08:47] LABS: BLOOD UREA NITROGEN 76.9 mg/dL (7-18)
[2020-12-03 08:50] LABS: CREATININE 0.9 mg/dL (0.55-1.3)
[2020-12-03 08:51] LABS: BILIRUBIN,TOTAL 0.3 mg/dL (0.2-1)
[2020-12-03 08:52] LABS: TOT PROT 4.6 g/dl (6.4-8.2)
[2020-12-03 09:04] LABS: ALBUMIN 2.3 g/dl (3.4-5.0)
[2020-12-03] MEDS: TAMSULOSIN HCL 0.4 MG CAP PO SCH (09:50)
[2020-12-03] MEDS: PANTOPRAZOLE 40 MG TABLET PO SCH ×2 (09:50→21:41)
[2020-12-03] MEDS: predniSONE 20 MG TABLET (UD) PO SCH (09:50)
[2020-12-03] MEDS: metoPROLOL SUCCINATE 25 MG TAB.SR.24H (FP) PO SCH ×2 (09:50→21:37)
[2020-12-03] MEDS: DOCUSATE SODIUM 100 MG CAPSULE (FP) PO SCH ×2 (09:50→21:37)
[2020-12-03] MEDS: LETROZOLE 2.5 MG TABLET (FP) PO SCH (09:51)
[2020-12-03] MEDS: ASPIRIN 81 MG CHEWABLE TABLETS PO SCH (09:51)
[2020-12-03] MEDS: SODIUM ZIRCONIUM CYCLOSILICATE (LOKELMA) 5 GM PACKET PO SCH ×2 (09:51→09:52)
[2020-12-03] MEDS: POLYETHYLENE GLYCOL 3350 119 GM BTL PO SCH ×2 (09:52→21:38)
[2020-12-03] MEDS: BUDESONIDE/FORMETEROL FUMARATE 80/4.5 mcg INHALER IH SCH ×2 (09:52→21:42)
[2020-12-03] MEDS: CYANOCOBALAMIN 1,000 MCG TABLET (FP) PO SCH (09:52)
[2020-12-03] MEDS: FERROUS SO4 325 MG TABLET (FP) PO SCH (09:52)
[2020-12-03 09:55] LABS: ANISOCYTOSIS 1+; MACROCYTOSIS 0; PLATELET ESTIMATE NORMAL
[2020-12-03] MEDS: DORZOLAMIDE 2% HCL OPHTHALMIC SOLUTION 10 ML BOTTLE OU SCH (09:55)
[2020-12-03] MEDS: LIDOCAINE 5% TOPICAL PATCH TP SCH (10:46)
[2020-12-03 20:08] LABS: HEMATOCRIT 25.6 % (32.4-45.2); HEMOGLOBIN 8.3 GM/dL (10.7-15.3); MCH 31.4 pg (25.7-33.7); MCHC 32.4 g/dl (32.0-36.0); MEAN CELL VOLUME 96.8 fl (80-96); MEAN PLT VOLUME 9.1 fl (7.5-11.1); PLATELET COUNT 222 K/MM3 (134-434); RBC 2.64 M/mm3 (3.60-5.2); RDW 16.4 % (11.6-15.6); WHITE BLOOD COUNT 9.4 K/mm3 (4.0-10.0)
[2020-12-03] MEDS: SENNOSIDES 8.6MG TABLET (FP) PO SCH (21:37)
[2020-12-03] MEDS: ATORVASTATIN CA 40 MG TABLET (FP) PO SCH (21:37)
[2020-12-03] MEDS: LIDOCAINE PATCH REMOVAL MC SCH ×2 (21:53→23:00)
[2020-12-04] MEDS: oxyCODONE HCL 5 MG TABLET PO PRN ×2 (01:42→09:11)
[2020-12-04] MEDS: traMADol HCL 50 MG TABLET PO PRN (06:00)
[2020-12-04] MEDS: FUROSEMIDE 40 MG/4 ML INJECTABLE VIAL IVPUSH SCH ×2 (06:00→13:51)
[2020-12-04] MEDS: INSULIN SLIDING SCALE (NOVOLOG) 1 VIAL SQ SCH ×4 (06:27→23:24)
[2020-12-04] MEDS: INSULIN (LEVEMIR) 100 UNITS/ML UNITS SQ SCH ×2 (06:27→22:51)
[2020-12-04 07:47] LABS: BASO % 0.1 % (0-2.0); EOS % 0.2 % (0-4.5); HEMATOCRIT 24.3 % (32.4-45.2); HEMOGLOBIN 8.3 GM/dL (10.7-15.3); LYMPH % 6.7 % (8-40); MCH 32.4 pg (25.7-33.7); MCHC 34.1 g/dl (32.0-36.0); MEAN CELL VOLUME 94.9 fl (80-96); MEAN PLT VOLUME 8.8 fl (7.5-11.1); MONO % 6.7 % (3.8-10.2); NEUT % 86.3 % (42.8-82.8); PLATELET COUNT 220 K/MM3 (134-434); RBC 2.56 M/mm3 (3.60-5.2); RDW 16.4 % (11.6-15.6); WHITE BLOOD COUNT 10.8 K/mm3 (4.0-10.0)
[2020-12-04 08:23] LABS: ALBUMIN 2.4 g/dl (3.4-5.0); CALCIUM 8.1 mg/dL (8.5-10.1)
[2020-12-04 08:24] LABS: BLOOD UREA NITROGEN 66.7 mg/dL (7-18)
[2020-12-04 08:27] LABS: BILIRUBIN,TOTAL 0.7 mg/dL (0.2-1)
[2020-12-04] MEDS: metoPROLOL SUCCINATE 25 MG TAB.SR.24H (FP) PO SCH ×2 (09:11→22:52)
[2020-12-04] MEDS: CYANOCOBALAMIN 1,000 MCG TABLET (FP) PO SCH (09:11)
[2020-12-04] MEDS: PANTOPRAZOLE 40 MG TABLET PO SCH ×2 (09:11→23:23)
[2020-12-04] MEDS: TAMSULOSIN HCL 0.4 MG CAP PO SCH (09:12)
[2020-12-04] MEDS: predniSONE 20 MG TABLET (UD) PO SCH (09:12)
[2020-12-04] MEDS: FERROUS SO4 325 MG TABLET (FP) PO SCH (09:12)
[2020-12-04] MEDS: DOCUSATE SODIUM 100 MG CAPSULE (FP) PO SCH ×2 (09:13→22:52)
[2020-12-04] MEDS: SODIUM ZIRCONIUM CYCLOSILICATE (LOKELMA) 5 GM PACKET PO SCH ×2 (09:13)
[2020-12-04] MEDS: ASPIRIN 81 MG CHEWABLE TABLETS PO SCH (09:13)
[2020-12-04] MEDS: DORZOLAMIDE 2% HCL OPHTHALMIC SOLUTION 10 ML BOTTLE OU SCH (09:13)
[2020-12-04] MEDS: BUDESONIDE/FORMETEROL FUMARATE 80/4.5 mcg INHALER IH SCH ×2 (09:13→23:22)
[2020-12-04] MEDS: POLYETHYLENE GLYCOL 3350 119 GM BTL PO SCH ×2 (09:13→23:23)
[2020-12-04] MEDS: LIDOCAINE 5% TOPICAL PATCH TP SCH (09:14)
[2020-12-04] MEDS: METHYL SALICYLATE/MENTHOL OINT 30 GM TUBE TP SCH (09:14)
[2020-12-04] MEDS: LETROZOLE 2.5 MG TABLET (FP) PO SCH (09:14)
[2020-12-04] MEDS ORDERED: oxyCODONE HCL 5 MG TABLET PO PRN (14:40)
[2020-12-04] MEDS ORDERED: traMADol HCL 50 MG TABLET PO PRN (14:40)
[2020-12-04] MEDS ORDERED: ACETAMINOPHEN 325 MG TABLET (FP) PO PRN (14:41)
[2020-12-04] MEDS ORDERED: FUROSEMIDE 40 MG/4 ML INJECTABLE VIAL IVPUSH ONE (22:00)
[2020-12-04] MEDS: SENNOSIDES 8.6MG TABLET (FP) PO SCH (22:51)
[2020-12-04] MEDS: ATORVASTATIN CA 40 MG TABLET (FP) PO SCH (22:52)
[2020-12-04] MEDS: LIDOCAINE PATCH REMOVAL MC SCH (22:52)
[2020-12-05] MEDS: traMADol HCL 50 MG TABLET PO PRN ×2 (02:36→09:25)
[2020-12-05] MEDS: FUROSEMIDE 40 MG/4 ML INJECTABLE VIAL IVPUSH SCH ×2 (06:24→14:01)
[2020-12-05] MEDS: ACETAMINOPHEN 325 MG TABLET (FP) PO PRN (06:25)
[2020-12-05] MEDS: INSULIN (LEVEMIR) 100 UNITS/ML UNITS SQ SCH ×2 (06:26→21:30)
[2020-12-05] MEDS: INSULIN SLIDING SCALE (NOVOLOG) 1 VIAL SQ SCH ×4 (06:27→21:30)
[2020-12-05 08:16] LABS: BASO % 0.2 % (0-2.0); EOS % 0.8 % (0-4.5); LYMPH % 5.5 % (8-40); MCH 32.2 pg (25.7-33.7); MCHC 33.3 g/dl (32.0-36.0); MEAN CELL VOLUME 96.8 fl (80-96); MEAN PLT VOLUME 8.9 fl (7.5-11.1); MONO % 5.5 % (3.8-10.2); PLATELET COUNT 196 K/MM3 (134-434); RBC 2.48 M/mm3 (3.60-5.2); RDW 16.9 % (11.6-15.6); WHITE BLOOD COUNT 9.4 K/mm3 (4.0-10.0)
[2020-12-05 08:47] LABS: ALBUMIN 2.4 g/dl (3.4-5.0); BLOOD UREA NITROGEN 62.7 mg/dL (7-18); CALCIUM 8.3 mg/dL (8.5-10.1)
[2020-12-05 08:49] LABS: BILIRUBIN,TOTAL 0.5 mg/dL (0.2-1); TOT PROT 4.7 g/dl (6.4-8.2)
[2020-12-05 08:51] LABS: CREATININE 0.9 mg/dL (0.55-1.3); PHOSPHOROUS 3.1 mg/dL (2.5-4.9)
[2020-12-05] MEDS: predniSONE 20 MG TABLET (UD) PO SCH (09:25)
[2020-12-05] MEDS: SODIUM ZIRCONIUM CYCLOSILICATE (LOKELMA) 5 GM PACKET PO SCH (09:25)
[2020-12-05] MEDS: FERROUS SO4 325 MG TABLET (FP) PO SCH (09:25)
[2020-12-05] MEDS: PANTOPRAZOLE 40 MG TABLET PO SCH ×2 (09:25→21:05)
[2020-12-05] MEDS: DOCUSATE SODIUM 100 MG CAPSULE (FP) PO SCH ×2 (09:25→21:05)
[2020-12-05] MEDS: TAMSULOSIN HCL 0.4 MG CAP PO SCH (09:26)
[2020-12-05] MEDS: metoPROLOL SUCCINATE 25 MG TAB.SR.24H (FP) PO SCH ×2 (09:26→21:06)
[2020-12-05] MEDS: ASPIRIN 81 MG CHEWABLE TABLETS PO SCH (09:26)
[2020-12-05] MEDS: METHYL SALICYLATE/MENTHOL OINT 30 GM TUBE TP SCH (09:26)
[2020-12-05] MEDS: CYANOCOBALAMIN 1,000 MCG TABLET (FP) PO SCH (09:26)
[2020-12-05] MEDS: BUDESONIDE/FORMETEROL FUMARATE 80/4.5 mcg INHALER IH SCH ×2 (09:27→21:06)
[2020-12-05] MEDS: POLYETHYLENE GLYCOL 3350 119 GM BTL PO SCH ×3 (09:27→21:06)
[2020-12-05] MEDS: LETROZOLE 2.5 MG TABLET (FP) PO SCH (09:27)
[2020-12-05] MEDS: LIDOCAINE 5% TOPICAL PATCH TP SCH (09:27)
[2020-12-05] MEDS: DORZOLAMIDE 2% HCL OPHTHALMIC SOLUTION 10 ML BOTTLE OU SCH (09:28)
[2020-12-05] MEDS ORDERED: LACTULOSE 20 GM/30 ML UDC (FOR ORAL USE ONLY) PO ONE (13:30)
[2020-12-05] MEDS: ALBUTEROL SO4 2.5/IPRATROPIUM 0.5 INH SOL 3 ML VIAL.NEB. NEB SCH (20:35)
[2020-12-05] MEDS: ATORVASTATIN CA 40 MG TABLET (FP) PO SCH (21:05)
[2020-12-05] MEDS: LIDOCAINE PATCH REMOVAL MC SCH (21:06)
[2020-12-05] MEDS: SENNOSIDES 8.6MG TABLET (FP) PO SCH (21:06)
[2020-12-05] MEDS ORDERED: DEXTROSE 50%-WATER - 25 GM/50 ML VIAL IVPUSH ONE (21:07)
[2020-12-05] MEDS ORDERED: DEXTROSE 50%-WATER 25 GM/50 ML DISP.SYRIN ONE (21:10)
[2020-12-05] MEDS ORDERED: DEXTROSE 50%-WATER - 25 GM/50 ML VIAL ONE (21:11)
[2020-12-06] MEDS: traMADol HCL 50 MG TABLET PO PRN (02:54)
[2020-12-06] MEDS: POLYETHYLENE GLYCOL 3350 119 GM BTL PO SCH ×3 (06:41→22:25)
[2020-12-06] MEDS: FUROSEMIDE 40 MG/4 ML INJECTABLE VIAL IVPUSH SCH ×2 (06:41→13:19)
[2020-12-06] MEDS: TAMSULOSIN HCL 0.4 MG CAP PO SCH (08:00)
[2020-12-06] MEDS: ALBUTEROL SO4 2.5/IPRATROPIUM 0.5 INH SOL 3 ML VIAL.NEB. NEB SCH ×3 (08:00→20:34)
[2020-12-06 08:06] LABS: BLOOD UREA NITROGEN 52.2 mg/dL (7-18)
[2020-12-06 08:09] LABS: CREATININE 0.9 mg/dL (0.55-1.3)
[2020-12-06] MEDS ORDERED: PT OWN MED DRAWER 7, Y5N ONE ×2 (08:20→09:54)
[2020-12-06] MEDS: predniSONE 20 MG TABLET (UD) PO SCH (10:00)
[2020-12-06] MEDS: ASPIRIN 81 MG CHEWABLE TABLETS PO SCH (10:17)
[2020-12-06] MEDS: DOCUSATE SODIUM 100 MG CAPSULE (FP) PO SCH ×2 (10:18→22:23)
[2020-12-06] MEDS: LETROZOLE 2.5 MG TABLET (FP) PO SCH (10:24)
[2020-12-06] MEDS: FERROUS SO4 325 MG TABLET (FP) PO SCH (10:25)
[2020-12-06] MEDS: LIDOCAINE 5% TOPICAL PATCH TP SCH (10:27)
[2020-12-06] MEDS: PANTOPRAZOLE 40 MG TABLET PO SCH ×2 (10:28→22:24)
[2020-12-06] MEDS: BUDESONIDE/FORMETEROL FUMARATE 80/4.5 mcg INHALER IH SCH ×2 (10:29→22:36)
[2020-12-06] MEDS: metoPROLOL SUCCINATE 25 MG TAB.SR.24H (FP) PO SCH ×2 (10:30→22:23)
[2020-12-06] MEDS: DORZOLAMIDE 2% HCL OPHTHALMIC SOLUTION 10 ML BOTTLE OU SCH (10:31)
[2020-12-06] MEDS: CYANOCOBALAMIN 1,000 MCG TABLET (FP) PO SCH (10:32)
[2020-12-06] MEDS ORDERED: LACTULOSE 20 GM/30 ML UDC (FOR ORAL USE ONLY) PO ONE (11:15)
[2020-12-06] MEDS: INSULIN SLIDING SCALE (NOVOLOG) 1 VIAL SQ SCH ×3 (11:15→22:24)
[2020-12-06] MEDS: METHYL SALICYLATE/MENTHOL OINT 30 GM TUBE TP SCH (13:19)
[2020-12-06] MEDS: ACETAMINOPHEN 325 MG TABLET (FP) PO PRN (15:04)
[2020-12-06] MEDS: INSULIN (LEVEMIR) 100 UNITS/ML UNITS SQ SCH (22:24)
[2020-12-06] MEDS: SENNOSIDES 8.6MG TABLET (FP) PO SCH (22:24)
[2020-12-06] MEDS: ATORVASTATIN CA 40 MG TABLET (FP) PO SCH (22:25)
[2020-12-06] MEDS: LIDOCAINE PATCH REMOVAL MC SCH (22:34)
[2020-12-07] MEDS: traMADol HCL 50 MG TABLET PO PRN (03:35)
[2020-12-07] MEDS: INSULIN SLIDING SCALE (NOVOLOG) 1 VIAL SQ SCH ×4 (06:48→22:21)
[2020-12-07] MEDS: INSULIN (LEVEMIR) 100 UNITS/ML UNITS SQ SCH ×2 (06:48→22:21)
[2020-12-07] MEDS: FUROSEMIDE 40 MG/4 ML INJECTABLE VIAL IVPUSH SCH (06:48)
[2020-12-07] MEDS: POLYETHYLENE GLYCOL 3350 119 GM BTL PO SCH ×3 (06:49→22:20)
[2020-12-07 07:20] LABS: BASO % 0.2 % (0-2.0); EOS % 0.5 % (0-4.5); HEMATOCRIT 28.1 % (32.4-45.2); HEMOGLOBIN 8.9 GM/dL (10.7-15.3); MCH 31.2 pg (25.7-33.7); MCHC 31.7 g/dl (32.0-36.0); MEAN CELL VOLUME 98.3 fl (80-96); MEAN PLT VOLUME 9.2 fl (7.5-11.1); NEUT % 87.3 % (42.8-82.8); PLATELET COUNT 239 K/MM3 (134-434); RBC 2.87 M/mm3 (3.60-5.2); RDW 17.3 % (11.6-15.6); WHITE BLOOD COUNT 9.4 K/mm3 (4.0-10.0)
[2020-12-07 07:43] LABS: BLOOD UREA NITROGEN 44.5 mg/dL (7-18); CALCIUM 8.2 mg/dL (8.5-10.1)
[2020-12-07 07:46] LABS: CREATININE 0.9 mg/dL (0.55-1.3); MAGNESIUM 1.8 mg/dL (1.8-2.4)
[2020-12-07 07:47] LABS: TOT PROT 5.6 g/dl (6.4-8.2)
[2020-12-07 07:51] LABS: BILIRUBIN,TOTAL 0.6 mg/dL (0.2-1)
[2020-12-07 07:58] LABS: ALBUMIN 2.8 g/dl (3.4-5.0)
[2020-12-07] MEDS: ACETAMINOPHEN 325 MG TABLET (FP) PO PRN ×3 (08:00→22:17)
[2020-12-07] MEDS: ALBUTEROL SO4 2.5/IPRATROPIUM 0.5 INH SOL 3 ML VIAL.NEB. NEB SCH ×3 (08:15→20:14)
[2020-12-07] MEDS ORDERED: PT OWN MED DRAWER 7, Y5N ONE (09:40)
[2020-12-07] MEDS: metoPROLOL SUCCINATE 25 MG TAB.SR.24H (FP) PO SCH ×2 (09:46→22:16)
[2020-12-07] MEDS: predniSONE 20 MG TABLET (UD) PO SCH (09:47)
[2020-12-07] MEDS: PANTOPRAZOLE 40 MG TABLET PO SCH ×2 (09:47→22:16)
[2020-12-07] MEDS: TAMSULOSIN HCL 0.4 MG CAP PO SCH (09:47)
[2020-12-07] MEDS: DOCUSATE SODIUM 100 MG CAPSULE (FP) PO SCH ×2 (09:47→22:16)
[2020-12-07] MEDS: LETROZOLE 2.5 MG TABLET (FP) PO SCH (09:48)
[2020-12-07] MEDS: LIDOCAINE 5% TOPICAL PATCH TP SCH (09:48)
[2020-12-07] MEDS: ASPIRIN 81 MG CHEWABLE TABLETS PO SCH (09:48)
[2020-12-07] MEDS: CYANOCOBALAMIN 1,000 MCG TABLET (FP) PO SCH (09:48)
[2020-12-07] MEDS: FERROUS SO4 325 MG TABLET (FP) PO SCH (09:49)
[2020-12-07] MEDS: BUDESONIDE/FORMETEROL FUMARATE 80/4.5 mcg INHALER IH SCH ×2 (09:50→22:20)
[2020-12-07] MEDS: METHYL SALICYLATE/MENTHOL OINT 30 GM TUBE TP SCH (09:51)
[2020-12-07] MEDS: DORZOLAMIDE 2% HCL OPHTHALMIC SOLUTION 10 ML BOTTLE OU SCH (09:51)
[2020-12-07] MEDS ORDERED: LACTULOSE 20 GM/30 ML UDC (FOR ORAL USE ONLY) PO ONE (10:50)
[2020-12-07] MEDS ORDERED: POTASSIUM CHLORIDE TABS 20 MEQ TABLET.ER (FP) PO ONE (12:25)
[2020-12-07] MEDS: SENNOSIDES 8.6MG TABLET (FP) PO SCH (22:16)
[2020-12-07] MEDS: ATORVASTATIN CA 40 MG TABLET (FP) PO SCH (22:17)
[2020-12-07] MEDS: LIDOCAINE PATCH REMOVAL MC SCH (22:21)
[2020-12-08] MEDS: traMADol HCL 50 MG TABLET PO PRN ×2 (01:52→21:46)
[2020-12-08] MEDS: INSULIN SLIDING SCALE (NOVOLOG) 1 VIAL SQ SCH ×5 (06:36→22:08)
[2020-12-08] MEDS: INSULIN (LEVEMIR) 100 UNITS/ML UNITS SQ SCH (06:36)
[2020-12-08] MEDS: POLYETHYLENE GLYCOL 3350 119 GM BTL PO SCH ×3 (06:37→22:01)
[2020-12-08] MEDS: ALBUTEROL SO4 2.5/IPRATROPIUM 0.5 INH SOL 3 ML VIAL.NEB. NEB SCH ×3 (07:25→20:40)
[2020-12-08 07:30] LABS: BASO % 0.3 % (0-2.0); EOS % 0.5 % (0-4.5); HEMATOCRIT 25.4 % (32.4-45.2); HEMOGLOBIN 8.1 GM/dL (10.7-15.3); LYMPH % 8.1 % (8-40); MCH 31.1 pg (25.7-33.7); MCHC 32.1 g/dl (32.0-36.0); MONO % 6.9 % (3.8-10.2); NEUT % 84.2 % (42.8-82.8); PLATELET COUNT 212 K/MM3 (134-434); RBC 2.62 M/mm3 (3.60-5.2); RDW 17.7 % (11.6-15.6); WHITE BLOOD COUNT 8.4 K/mm3 (4.0-10.0)
[2020-12-08 07:47] LABS: CALCIUM 7.8 mg/dL (8.5-10.1)
[2020-12-08 07:48] LABS: ALBUMIN 2.7 g/dl (3.4-5.0); BLOOD UREA NITROGEN 48.6 mg/dL (7-18)
[2020-12-08 07:51] LABS: BILIRUBIN,TOTAL 0.4 mg/dL (0.2-1); TOT PROT 5.2 g/dl (6.4-8.2)
[2020-12-08] MEDS ORDERED: POTASSIUM CHLORIDE TABS 20 MEQ TABLET.ER (FP) PO ONE ×2 (08:30→10:46)
[2020-12-08] MEDS ORDERED: PT OWN MED DRAWER 7, Y5N ONE (09:52)
[2020-12-08] MEDS: CYANOCOBALAMIN 1,000 MCG TABLET (FP) PO SCH (09:55)
[2020-12-08] MEDS: LIDOCAINE 5% TOPICAL PATCH TP SCH (09:55)
[2020-12-08] MEDS: predniSONE 20 MG TABLET (UD) PO SCH (09:55)
[2020-12-08] MEDS: DOCUSATE SODIUM 100 MG CAPSULE (FP) PO SCH ×2 (09:55→22:02)
[2020-12-08] MEDS: PANTOPRAZOLE 40 MG TABLET PO SCH ×2 (09:55→21:51)
[2020-12-08] MEDS: TAMSULOSIN HCL 0.4 MG CAP PO SCH (09:55)
[2020-12-08] MEDS: metoPROLOL SUCCINATE 25 MG TAB.SR.24H (FP) PO SCH ×2 (09:55→21:48)
[2020-12-08] MEDS: ASPIRIN 81 MG CHEWABLE TABLETS PO SCH (09:56)
[2020-12-08] MEDS: BUDESONIDE/FORMETEROL FUMARATE 80/4.5 mcg INHALER IH SCH ×2 (09:56→21:48)
[2020-12-08] MEDS: FERROUS SO4 325 MG TABLET (FP) PO SCH (09:56)
[2020-12-08] MEDS: METHYL SALICYLATE/MENTHOL OINT 30 GM TUBE TP SCH (09:56)
[2020-12-08] MEDS: LETROZOLE 2.5 MG TABLET (FP) PO SCH (09:56)
[2020-12-08] MEDS: DORZOLAMIDE 2% HCL OPHTHALMIC SOLUTION 10 ML BOTTLE OU SCH (09:56)
[2020-12-08] MEDS ORDERED: FUROSEMIDE 40 MG/4 ML INJECTABLE VIAL IVPUSH SCH ×2 (10:00→18:09)
[2020-12-08] MEDS: ATORVASTATIN CA 40 MG TABLET (FP) PO SCH (21:47)
[2020-12-08] MEDS: SENNOSIDES 8.6MG TABLET (FP) PO SCH (21:49)
[2020-12-08] MEDS: LIDOCAINE PATCH REMOVAL MC SCH (22:01)
[2020-12-09] MEDS: traMADol HCL 50 MG TABLET PO PRN (06:19)
[2020-12-09] MEDS: INSULIN SLIDING SCALE (NOVOLOG) 1 VIAL SQ SCH ×4 (06:23→22:57)
[2020-12-09] MEDS: POLYETHYLENE GLYCOL 3350 119 GM BTL PO SCH ×3 (06:23→22:35)
[2020-12-09] MEDS: INSULIN (LEVEMIR) 100 UNITS/ML UNITS SQ SCH (06:24)
[2020-12-09] MEDS: ALBUTEROL SO4 2.5/IPRATROPIUM 0.5 INH SOL 3 ML VIAL.NEB. NEB SCH ×3 (07:20→20:06)
[2020-12-09 08:39] LABS: CALCIUM 7.5 mg/dL (8.5-10.1)
[2020-12-09 08:40] LABS: ALBUMIN 2.6 g/dl (3.4-5.0); BASO % 0.2 % (0-2.0); BLOOD UREA NITROGEN 49.9 mg/dL (7-18); EOS % 0.9 % (0-4.5); HEMOGLOBIN 8.2 GM/dL (10.7-15.3); LYMPH % 8.2 % (8-40); MEAN PLT VOLUME 9.1 fl (7.5-11.1); MONO % 6.9 % (3.8-10.2); NEUT % 83.8 % (42.8-82.8); PLATELET COUNT 200 K/MM3 (134-434); RBC 2.58 M/mm3 (3.60-5.2); RDW 17.4 % (11.6-15.6); WHITE BLOOD COUNT 8.3 K/mm3 (4.0-10.0)
[2020-12-09 08:44] LABS: BILIRUBIN,TOTAL 0.5 mg/dL (0.2-1); TOT PROT 5.2 g/dl (6.4-8.2)
[2020-12-09] MEDS: LIDOCAINE 5% TOPICAL PATCH TP SCH (09:25)
[2020-12-09] MEDS: CYANOCOBALAMIN 1,000 MCG TABLET (FP) PO SCH (09:26)
[2020-12-09] MEDS: metoPROLOL SUCCINATE 25 MG TAB.SR.24H (FP) PO SCH ×2 (09:26→22:42)
[2020-12-09] MEDS: TAMSULOSIN HCL 0.4 MG CAP PO SCH (09:26)
[2020-12-09] MEDS: ASPIRIN 81 MG CHEWABLE TABLETS PO SCH (09:26)
[2020-12-09] MEDS: FERROUS SO4 325 MG TABLET (FP) PO SCH (09:26)
[2020-12-09] MEDS: PANTOPRAZOLE 40 MG TABLET PO SCH ×2 (09:26→22:47)
[2020-12-09] MEDS: predniSONE 20 MG TABLET (UD) PO SCH (09:26)
[2020-12-09] MEDS: DORZOLAMIDE 2% HCL OPHTHALMIC SOLUTION 10 ML BOTTLE OU SCH (09:27)
[2020-12-09] MEDS: BUDESONIDE/FORMETEROL FUMARATE 80/4.5 mcg INHALER IH SCH ×2 (09:27→22:40)
[2020-12-09] MEDS ORDERED: PT OWN MED DRAWER 7, Y5N ONE (09:29)
[2020-12-09] MEDS: LETROZOLE 2.5 MG TABLET (FP) PO SCH (09:32)
[2020-12-09] MEDS: DOCUSATE SODIUM 100 MG CAPSULE (FP) PO SCH ×2 (10:13→22:33)
[2020-12-09] MEDS: METHYL SALICYLATE/MENTHOL OINT 30 GM TUBE TP SCH (10:14)
[2020-12-09 16:28] LABS: MAGNESIUM 1.5 mg/dL (1.8-2.4)
[2020-12-09] MEDS ORDERED: MAGNESIUM OXIDE 400 MG TABLET (FP) PO ONE (17:28)
[2020-12-09] MEDS: LIDOCAINE PATCH REMOVAL MC SCH (22:33)
[2020-12-09] MEDS: ATORVASTATIN CA 40 MG TABLET (FP) PO SCH (22:36)
[2020-12-10] MEDS: SENNOSIDES 8.6MG TABLET (FP) PO SCH ×2 (06:43→21:30)
[2020-12-10] MEDS: INSULIN (LEVEMIR) 100 UNITS/ML UNITS SQ SCH (06:44)
[2020-12-10] MEDS: POLYETHYLENE GLYCOL 3350 119 GM BTL PO SCH ×3 (06:44→21:31)
[2020-12-10] MEDS: INSULIN SLIDING SCALE (NOVOLOG) 1 VIAL SQ SCH ×4 (06:54→21:31)
[2020-12-10] MEDS: ALBUTEROL SO4 2.5/IPRATROPIUM 0.5 INH SOL 3 ML VIAL.NEB. NEB SCH ×2 (07:20→14:45)
[2020-12-10 07:48] LABS: BASO % 0.4 % (0-2.0); EOS % 0.7 % (0-4.5); HEMATOCRIT 24.1 % (32.4-45.2); HEMOGLOBIN 7.9 GM/dL (10.7-15.3); LYMPH % 7.6 % (8-40); MCH 31.6 pg (25.7-33.7); MCHC 32.6 g/dl (32.0-36.0); MEAN CELL VOLUME 96.7 fl (80-96); MEAN PLT VOLUME 8.6 fl (7.5-11.1); MONO % 6.7 % (3.8-10.2); NEUT % 84.6 % (42.8-82.8); PLATELET COUNT 184 K/MM3 (134-434); RDW 17.3 % (11.6-15.6); WHITE BLOOD COUNT 8.1 K/mm3 (4.0-10.0)
[2020-12-10 08:08] LABS: ALBUMIN 2.4 g/dl (3.4-5.0); CALCIUM 7.3 mg/dL (8.5-10.1)
[2020-12-10 08:09] LABS: BLOOD UREA NITROGEN 52.5 mg/dL (7-18); MAGNESIUM 1.6 mg/dL (1.8-2.4)
[2020-12-10 08:13] LABS: BILIRUBIN,TOTAL 0.5 mg/dL (0.2-1); TOT PROT 4.8 g/dl (6.4-8.2)
[2020-12-10] MEDS ORDERED: PT OWN MED DRAWER 7, Y5N ONE (09:41)
[2020-12-10] MEDS: LIDOCAINE 5% TOPICAL PATCH TP SCH (09:47)
[2020-12-10] MEDS: TAMSULOSIN HCL 0.4 MG CAP PO SCH (09:48)
[2020-12-10] MEDS: CYANOCOBALAMIN 1,000 MCG TABLET (FP) PO SCH (09:48)
[2020-12-10] MEDS: metoPROLOL SUCCINATE 25 MG TAB.SR.24H (FP) PO SCH ×2 (09:48→21:30)
[2020-12-10] MEDS: PANTOPRAZOLE 40 MG TABLET PO SCH ×2 (09:48→21:29)
[2020-12-10] MEDS: ASPIRIN 81 MG CHEWABLE TABLETS PO SCH (09:48)
[2020-12-10] MEDS: FERROUS SO4 325 MG TABLET (FP) PO SCH (09:48)
[2020-12-10] MEDS: METHYL SALICYLATE/MENTHOL OINT 30 GM TUBE TP SCH (09:48)
[2020-12-10] MEDS: predniSONE 20 MG TABLET (UD) PO SCH (09:48)
[2020-12-10] MEDS: DORZOLAMIDE 2% HCL OPHTHALMIC SOLUTION 10 ML BOTTLE OU SCH (09:49)
[2020-12-10] MEDS: BUDESONIDE/FORMETEROL FUMARATE 80/4.5 mcg INHALER IH SCH ×2 (09:49→21:34)
[2020-12-10] MEDS: LETROZOLE 2.5 MG TABLET (FP) PO SCH (09:49)
[2020-12-10] MEDS: DOCUSATE SODIUM 100 MG CAPSULE (FP) PO SCH ×2 (09:49→21:30)
[2020-12-10] MEDS ORDERED: FUROSEMIDE 40 MG TABLET (FP) PO SCH ×2 (10:00→10:07)
[2020-12-10] MEDS ORDERED: MAGNESIUM SULF 50% (8.12 MEQ/2 ML-1 GM VIAL) IVPB ONE (10:08)
[2020-12-10] MEDS ORDERED: MAGNESIUM OXIDE 400 MG TABLET (FP) PO ONE (16:38)
[2020-12-10] MEDS: MAGNESIUM OXIDE 400 MG TABLET (FP) PO SCH (21:30)
[2020-12-10] MEDS: LIDOCAINE PATCH REMOVAL MC SCH (21:31)
[2020-12-10] MEDS: ATORVASTATIN CA 40 MG TABLET (FP) PO SCH (21:39)
[2020-12-10] MEDS ORDERED: MELATONIN 5 MG TABLETS PO SCH (22:00)
[2020-12-11] MEDS: POLYETHYLENE GLYCOL 3350 119 GM BTL PO SCH ×2 (06:11→14:39)
[2020-12-11] MEDS: INSULIN (LEVEMIR) 100 UNITS/ML UNITS SQ SCH (06:17)
[2020-12-11] MEDS: INSULIN SLIDING SCALE (NOVOLOG) 1 VIAL SQ SCH ×3 (06:18→16:48)
[2020-12-11 07:26] LABS: BASO % 0.5 % (0-2.0); EOS % 1.1 % (0-4.5); HEMATOCRIT 29.6 % (32.4-45.2); LYMPH % 8.9 % (8-40); MCH 31.9 pg (25.7-33.7); MCHC 33.8 g/dl (32.0-36.0); MEAN CELL VOLUME 94.4 fl (80-96); MEAN PLT VOLUME 8.7 fl (7.5-11.1); MONO % 6.3 % (3.8-10.2); NEUT % 83.2 % (42.8-82.8); PLATELET COUNT 184 K/MM3 (134-434); RBC 3.14 M/mm3 (3.60-5.2); RDW 16.9 % (11.6-15.6); WHITE BLOOD COUNT 7.4 K/mm3 (4.0-10.0)
[2020-12-11 07:51] LABS: ALBUMIN 2.6 g/dl (3.4-5.0); BLOOD UREA NITROGEN 52.6 mg/dL (7-18); CALCIUM 7.5 mg/dL (8.5-10.1); MAGNESIUM 1.9 mg/dL (1.8-2.4)
[2020-12-11 07:54] LABS: CREATININE 0.9 mg/dL (0.55-1.3)
[2020-12-11 07:55] LABS: BILIRUBIN,TOTAL 0.6 mg/dL (0.2-1); TOT PROT 5.2 g/dl (6.4-8.2)
[2020-12-11] MEDS ORDERED: FUROSEMIDE 40 MG TABLET (FP) PO SCH (10:00)
[2020-12-11] MEDS ORDERED: PT OWN MED DRAWER 7, Y5N ONE (10:21)
[2020-12-11] MEDS ORDERED: BISACODYL 10 MG SUPP.RECT PR ONE (10:30)
[2020-12-11] MEDS: PANTOPRAZOLE 40 MG TABLET PO SCH (10:31)
[2020-12-11] MEDS: CYANOCOBALAMIN 1,000 MCG TABLET (FP) PO SCH (10:31)
[2020-12-11] MEDS: TAMSULOSIN HCL 0.4 MG CAP PO SCH (10:31)
[2020-12-11] MEDS: ASPIRIN 81 MG CHEWABLE TABLETS PO SCH (10:31)
[2020-12-11] MEDS: FERROUS SO4 325 MG TABLET (FP) PO SCH (10:31)
[2020-12-11] MEDS: MAGNESIUM OXIDE 400 MG TABLET (FP) PO SCH (10:31)
[2020-12-11] MEDS: metoPROLOL SUCCINATE 25 MG TAB.SR.24H (FP) PO SCH (10:31)
[2020-12-11] MEDS: predniSONE 20 MG TABLET (UD) PO SCH (10:31)
[2020-12-11] MEDS: LETROZOLE 2.5 MG TABLET (FP) PO SCH (10:32)
[2020-12-11] MEDS: DOCUSATE SODIUM 100 MG CAPSULE (FP) PO SCH (10:34)
[2020-12-11] MEDS: LIDOCAINE 5% TOPICAL PATCH TP SCH (10:34)
[2020-12-11] MEDS: BUDESONIDE/FORMETEROL FUMARATE 80/4.5 mcg INHALER IH SCH (10:34)
[2020-12-11] MEDS: METHYL SALICYLATE/MENTHOL OINT 30 GM TUBE TP SCH (10:35)
[2020-12-11] MEDS: DORZOLAMIDE 2% HCL OPHTHALMIC SOLUTION 10 ML BOTTLE OU SCH (10:39)
[2020-12-11 15:27] VITALS: BP 138/69; PULSE 80; TEMP 98.6
[2020-12-11 15:30] LABS: Hgb F 0; Hgb S 0
== END 2020-12-11 18:18 | DRG 189 ==
LOC: JER 14:35 → JERBED 17:28 → J4W 11-22 00:34
PROVIDERS: ADMIT Internal Medicine; ATTEND Family Medicine
PROC: 30233N1 Transfusion of Nonautologous Red Blood Cells into Peripheral Vein, Percutaneous Approach (ICD-10-PCS; principal; 2020-11-27)
DX: J96.22 Acute and chronic respiratory failure with hypercapnia (principal); G93.41 Metabolic encephalopathy; I50.33 Acute on chronic diastolic (congestive) heart failure; J44.1 Chronic obstructive pulmonary disease with (acute) exacerbation; N17.9 Acute kidney failure, unspecified; N39.0 Urinary tract infection, site not specified; E87.1 Hypo-osmolality and hyponatremia; I13.0 Hypertensive heart and chronic kidney disease with heart failure and stage 1 through stage 4 chronic kidney disease, or unspecified chronic kidney disease; I47.1 Supraventricular tachycardia; J96.21 Acute and chronic respiratory failure with hypoxia; Z99.81 Dependence on supplemental oxygen; D64.9 Anemia, unspecified; I69.392 Facial weakness following cerebral infarction; Z79.4 Long term (current) use of insulin; E87.5 Hyperkalemia; I25.10 Atherosclerotic heart disease of native coronary artery without angina pectoris; Z20.822 Contact with and (suspected) exposure to COVID-19; I25.2 Old myocardial infarction; I27.20 Pulmonary hypertension, unspecified; Z85.3 Personal history of malignant neoplasm of breast; N18.30 Chronic kidney disease, stage 3 unspecified; E11.22 Type 2 diabetes mellitus with diabetic chronic kidney disease; R33.9 Retention of urine, unspecified; K59.00 Constipation, unspecified
CPT/HCPCS: 36415; 36430; 36600; 71045-TC-FY; 71250-TC; 72100-TC-FY; 74177-TC; 76775-TC; 76856-TC; 80048; 80053; 81003; 82248; 82272; 82436; 82550; 82553; 82728; 82784; 82803; 82962; 83020; 83021; 83036; 83540; 83550; 83605; 83615; 83735; 83880; 83930; 83935; 84100; 84133; 84300; 84443; 84484; 85025; 85027; 85610; 85660; 85730; 86140; 86769; 86850; 86900; 86901; 86922; 87040; 87077; 87086; 87205; 87804; 93005; 93010; 93306-TC; 94640; 94660; 97116-GP; 97161-GP; 99285-25; C9803; J1439; J1644; P9058; Q9967; U0003; U0005

== ENCOUNTER 2021-04-05 10:28 | Inpatient (IN) | payer OTHER ==
[2021-04-05 11:18] VITALS: BMI 21.9
[2021-04-05] MEDS ORDERED: PANTOPRAZOLE SODIUM 40 MG in SODIUM CHLORIDE 100 ML IVPB ONE (13:10)
[2021-04-05] MEDS ORDERED: PANTOPRAZOLE SODIUM 40 MG/100 ML BAG IVPB ONE (13:57)
[2021-04-05 14:03] LABS: BASO % 0.3 % (0-2.0); HEMATOCRIT 29.5 % (32.4-45.2); HEMOGLOBIN 9.7 GM/dL (10.7-15.3); LYMPH % 14.5 % (8-40); MCH 29.9 pg (25.7-33.7); MCHC 32.8 g/dl (32.0-36.0); MEAN CELL VOLUME 91.1 fl (80-96); MEAN PLT VOLUME 7.5 fl (7.5-11.1); MONO % 6.5 % (3.8-10.2); NEUT % 77.7 % (42.8-82.8); PLATELET COUNT 320 10^3/uL (134-434); RBC 3.23 M/mm3 (3.60-5.2); RDW 14.9 % (11.6-15.6); WHITE BLOOD COUNT 6.3 K/mm3 (4.0-10.0)
[2021-04-05 14:14] LABS: INR 0.98 (0.83-1.09); PROTHROMBIN TIME (PATIENT) 11.9 SEC (9.7-13.0)
[2021-04-05 14:16] LABS: ACTIVATED PTT 29.1 SECONDS (25.2-36.5)
[2021-04-05 14:26] LABS: CHLORIDE 103 mmol/L (98-107); SODIUM 139 mmol/L (136-145)
[2021-04-05 14:27] LABS: ANION GAP 8 MMOL/L (8-16); BLOOD UREA NITROGEN 39.2 mg/dL (7-18); CO2 29 mmol/L (21-32); GLUCOSE,RANDOM 203 mg/dL (74-106)
[2021-04-05 14:29] LABS: ALBUMIN 3.8 g/dl (3.4-5.0)
[2021-04-05 14:31] LABS: SGPT/ALT 22 U/L (13-61)
[2021-04-05 14:32] LABS: CREATININE 1.4 mg/dL (0.55-1.3); SGOT/AST 10 U/L (15-37); TOT PROT 8.5 g/dl (6.4-8.2)
[2021-04-05 14:34] LABS: ALK PHOS 119 U/L (45-117)
[2021-04-05 14:38] LABS: BILIRUBIN,TOTAL 0.3 mg/dL (0.2-1)
[2021-04-05 16:04] LABS: HEMATOCRIT 26.5 % (32.4-45.2); HEMOGLOBIN 8.7 GM/dL (10.7-15.3); MCH 29.4 pg (25.7-33.7); MCHC 32.6 g/dl (32.0-36.0); MEAN CELL VOLUME 90.1 fl (80-96); MEAN PLT VOLUME 6.7 fl (7.5-11.1); PLATELET COUNT 278 10^3/uL (134-434); RBC 2.94 M/mm3 (3.60-5.2); RDW 15.3 % (11.6-15.6); WHITE BLOOD COUNT 4.9 K/mm3 (4.0-10.0)
[2021-04-05 20:12] LABS: EPI CELLS 9 /uL (0-25.1); HYALINE CASTS 0 /uL (0-3.1); URINE APPEARANCE CLEAR; URINE BACTERIA 171 /uL (0-1359); URINE BILIRUBIN NEGATIVE (NEGATIVE); URINE COLOR YELLOW; URINE GLUCOSE (UA) 2+ (NEGATIVE); URINE KETONE NEGATIVE (NEGATIVE); URINE LEUK ESTERASE NEGATIVE (NEGATIVE); URINE NITRITE NEGATIVE (NEGATIVE); URINE PROTEIN 1+ (NEGATIVE); URINE RBC 15 /uL (0-23.9); URINE UROBILINOGEN 0.2 mg/dL (0.2-1.0); URINE WBC 28 /uL (0-25.8)
[2021-04-05] MEDS ORDERED: ACETAMINOPHEN 325 MG TABLET (FP) PO PRN (23:15)
[2021-04-06] MEDS: BUDESONIDE/FORMETEROL FUMARATE 80/4.5 mcg INHALER IH SCH ×3 (00:53→21:43)
[2021-04-06] MEDS ORDERED: PATIENT'S OWN MEDICATION (NON-FORMULARY) (Brinzolamide 1 DROP Drops) OP SCH (06:00)
[2021-04-06 08:11] LABS: BASO % 0.5 % (0-2.0); EOS % 1.7 % (0-4.5); HEMATOCRIT 25.1 % (32.4-45.2); HEMOGLOBIN 8.3 GM/dL (10.7-15.3); LYMPH % 23.9 % (8-40); MCH 30.1 pg (25.7-33.7); MCHC 33.2 g/dl (32.0-36.0); MEAN CELL VOLUME 90.5 fl (80-96); MEAN PLT VOLUME 7.5 fl (7.5-11.1); MONO % 10.8 % (3.8-10.2); NEUT % 63.1 % (42.8-82.8); PLATELET COUNT 266 10^3/uL (134-434); RBC 2.77 M/mm3 (3.60-5.2); RDW 14.8 % (11.6-15.6); WHITE BLOOD COUNT 3.9 K/mm3 (4.0-10.0)
[2021-04-06 08:28] LABS: ALBUMIN 3.1 g/dl (3.4-5.0); CALCIUM 8.5 mg/dL (8.5-10.1)
[2021-04-06 08:30] LABS: CREATININE 1.2 mg/dL (0.55-1.3)
[2021-04-06 08:33] LABS: BILIRUBIN,TOTAL 0.4 mg/dL (0.2-1)
[2021-04-06] MEDS ORDERED: FUROSEMIDE 40 MG TABLET (FP) ONE (09:12)
[2021-04-06] MEDS ORDERED: FUROSEMIDE 20 MG TABLET (FP) ONE (09:12)
[2021-04-06] MEDS ORDERED: PT OWN MED DRAWER 7, Y5N ONE ×3 (09:14→10:31)
[2021-04-06] MEDS: CYANOCOBALAMIN 1,000 MCG TABLET (FP) PO SCH (09:22)
[2021-04-06] MEDS: MONTELUKAST NA 10 MG TABLET PO SCH (09:23)
[2021-04-06] MEDS: FUROSEMIDE 80 MG, FUROSEMIDE 20 MG PO SCH (09:23)
[2021-04-06] MEDS: FERROUS SO4 325 MG TABLET (FP) PO SCH ×2 (09:23→21:35)
[2021-04-06] MEDS: DOCUSATE SODIUM 100 MG CAPSULE (FP) PO SCH ×2 (09:23→21:36)
[2021-04-06] MEDS: TAMSULOSIN HCL 0.4 MG CAP PO SCH (09:23)
[2021-04-06] MEDS: PANTOPRAZOLE 40 MG TABLET PO SCH ×2 (09:23→21:35)
[2021-04-06] MEDS: metoPROLOL SUCCINATE 25 MG TAB.SR.24H (FP) PO SCH (09:23)
[2021-04-06] MEDS ORDERED: FUROSEMIDE 40 MG TABLET (FP) PO SCH (10:00)
[2021-04-06] MEDS: LETROZOLE 2.5 MG TABLET (FP) PO SCH (10:44)
[2021-04-06] MEDS: DORZOLAMIDE 2% HCL OPHTHALMIC SOLUTION 10 ML BOTTLE OU SCH (10:44)
[2021-04-06] MEDS ORDERED: ACETAMINOPHEN 325 MG TABLET (FP) PO PRN (12:40)
[2021-04-06] MEDS: CEPHALEXIN MONOHYDRATE 500 MG CAPSULE (UD) PO SCH ×2 (14:20→21:36)
[2021-04-06 20:35] LABS: BASO % 0.8 % (0-2.0); EOS % 1.4 % (0-4.5); HEMATOCRIT 25.9 % (32.4-45.2); HEMOGLOBIN 8.3 GM/dL (10.7-15.3); LYMPH % 21.8 % (8-40); MCHC 32.2 g/dl (32.0-36.0); MEAN CELL VOLUME 90.2 fl (80-96); MEAN PLT VOLUME 7.6 fl (7.5-11.1); PLATELET COUNT 284 10^3/uL (134-434); RBC 2.87 M/mm3 (3.60-5.2); WHITE BLOOD COUNT 4.8 K/mm3 (4.0-10.0)
[2021-04-06] MEDS: ATORVASTATIN CA 40 MG TABLET (FP) PO SCH (21:35)
[2021-04-06] MEDS: MELATONIN 5 MG TABLETS PO SCH (21:36)
[2021-04-06] MEDS: SENNOSIDES 8.6MG TABLET (FP) PO SCH (21:36)
[2021-04-07 08:32] LABS: BASO % 0.5 % (0-2.0); HEMATOCRIT 26.5 % (32.4-45.2); HEMOGLOBIN 8.6 GM/dL (10.7-15.3); MCHC 32.3 g/dl (32.0-36.0); MEAN CELL VOLUME 89.9 fl (80-96); MEAN PLT VOLUME 7.5 fl (7.5-11.1); MONO % 11.4 % (3.8-10.2); NEUT % 63.1 % (42.8-82.8); PLATELET COUNT 271 10^3/uL (134-434); RBC 2.95 M/mm3 (3.60-5.2); RDW 14.7 % (11.6-15.6); WHITE BLOOD COUNT 4.2 K/mm3 (4.0-10.0)
[2021-04-07] MEDS ORDERED: FUROSEMIDE 40 MG TABLET (FP) ONE (08:44)
[2021-04-07] MEDS ORDERED: FUROSEMIDE 20 MG TABLET (FP) ONE (08:45)
[2021-04-07 08:57] LABS: BLOOD UREA NITROGEN 46.4 mg/dL (7-18); CALCIUM 8.4 mg/dL (8.5-10.1)
[2021-04-07 09:00] LABS: BILIRUBIN,TOTAL 0.3 mg/dL (0.2-1); CREATININE 1.6 mg/dL (0.55-1.3); TOT PROT 6.1 g/dl (6.4-8.2)
[2021-04-07] MEDS: TAMSULOSIN HCL 0.4 MG CAP PO SCH (09:24)
[2021-04-07] MEDS: DOCUSATE SODIUM 100 MG CAPSULE (FP) PO SCH ×2 (09:24→23:18)
[2021-04-07] MEDS: CEPHALEXIN MONOHYDRATE 500 MG CAPSULE (UD) PO SCH ×2 (09:25→23:21)
[2021-04-07] MEDS: MONTELUKAST NA 10 MG TABLET PO SCH (09:25)
[2021-04-07] MEDS: PANTOPRAZOLE 40 MG TABLET PO SCH ×2 (09:25→23:19)
[2021-04-07] MEDS: CYANOCOBALAMIN 1,000 MCG TABLET (FP) PO SCH (09:25)
[2021-04-07] MEDS: FERROUS SO4 325 MG TABLET (FP) PO SCH ×2 (09:25→23:18)
[2021-04-07] MEDS: metoPROLOL SUCCINATE 25 MG TAB.SR.24H (FP) PO SCH (09:26)
[2021-04-07] MEDS: FUROSEMIDE 80 MG, FUROSEMIDE 20 MG PO SCH (09:26)
[2021-04-07] MEDS: LETROZOLE 2.5 MG TABLET (FP) PO SCH (09:26)
[2021-04-07] MEDS: DORZOLAMIDE 2% HCL OPHTHALMIC SOLUTION 10 ML BOTTLE OU SCH (09:27)
[2021-04-07] MEDS: BUDESONIDE/FORMETEROL FUMARATE 80/4.5 mcg INHALER IH SCH ×2 (09:27→23:20)
[2021-04-07] MEDS ORDERED: INSULIN (NOVOLOG) ASPART 100 UNITS/ML 10ML VIAL ONE (16:42)
[2021-04-07] MEDS: INSULIN SLIDING SCALE (NOVOLOG) 1 VIAL SQ SCH (16:51)
[2021-04-07] MEDS: ATORVASTATIN CA 40 MG TABLET (FP) PO SCH (23:20)
[2021-04-07] MEDS: MELATONIN 5 MG TABLETS PO SCH (23:21)
[2021-04-07] MEDS ORDERED: PT OWN MED DRAWER 7, Y5N ONE (23:28)
[2021-04-07] MEDS: LATANOPROST 0.005% OPHTH SOLN 2.5ML BOTTLE OU SCH (23:49)
[2021-04-07] MEDS: SENNOSIDES 8.6MG TABLET (FP) PO SCH (23:50)
[2021-04-08] MEDS: INSULIN SLIDING SCALE (NOVOLOG) 1 VIAL SQ SCH ×2 (06:37→17:12)
[2021-04-08] MEDS ORDERED: FUROSEMIDE 20 MG TABLET (FP) ONE (08:49)
[2021-04-08] MEDS ORDERED: FUROSEMIDE 40 MG TABLET (FP) ONE (08:49)
[2021-04-08] MEDS ORDERED: PT OWN MED DRAWER 7, Y5N ONE (08:51)
[2021-04-08] MEDS: DOCUSATE SODIUM 100 MG CAPSULE (FP) PO SCH ×2 (09:11→21:41)
[2021-04-08] MEDS: TAMSULOSIN HCL 0.4 MG CAP PO SCH (09:11)
[2021-04-08] MEDS: FERROUS SO4 325 MG TABLET (FP) PO SCH ×2 (09:12→21:41)
[2021-04-08] MEDS: FUROSEMIDE 80 MG, FUROSEMIDE 20 MG PO SCH (09:12)
[2021-04-08] MEDS: MONTELUKAST NA 10 MG TABLET PO SCH (09:12)
[2021-04-08] MEDS: metoPROLOL SUCCINATE 25 MG TAB.SR.24H (FP) PO SCH (09:12)
[2021-04-08] MEDS: LETROZOLE 2.5 MG TABLET (FP) PO SCH (09:12)
[2021-04-08] MEDS: CEPHALEXIN MONOHYDRATE 500 MG CAPSULE (UD) PO SCH ×2 (09:12→21:41)
[2021-04-08] MEDS: PANTOPRAZOLE 40 MG TABLET PO SCH ×2 (09:12→21:41)
[2021-04-08] MEDS: CYANOCOBALAMIN 1,000 MCG TABLET (FP) PO SCH (09:12)
[2021-04-08] MEDS: BUDESONIDE/FORMETEROL FUMARATE 80/4.5 mcg INHALER IH SCH ×2 (09:13→21:43)
[2021-04-08] MEDS: DORZOLAMIDE 2% HCL OPHTHALMIC SOLUTION 10 ML BOTTLE OU SCH (09:13)
[2021-04-08 10:01] LABS: BASO % 0.7 % (0-2.0); EOS % 1.2 % (0-4.5); HEMATOCRIT 28.5 % (32.4-45.2); HEMOGLOBIN 9.4 GM/dL (10.7-15.3); LYMPH % 21.8 % (8-40); MCH 29.8 pg (25.7-33.7); MCHC 33.1 g/dl (32.0-36.0); MONO % 8.8 % (3.8-10.2); NEUT % 67.5 % (42.8-82.8); PLATELET COUNT 303 10^3/uL (134-434); RBC 3.16 M/mm3 (3.60-5.2); RDW 14.4 % (11.6-15.6); WHITE BLOOD COUNT 4.3 K/mm3 (4.0-10.0)
[2021-04-08 10:36] LABS: CALCIUM 8.5 mg/dL (8.5-10.1)
[2021-04-08 10:37] LABS: BLOOD UREA NITROGEN 56.7 mg/dL (7-18)
[2021-04-08 11:55] LABS: CREATININE 1.6 mg/dL (0.55-1.3)
[2021-04-08] MEDS: ATORVASTATIN CA 40 MG TABLET (FP) PO SCH (21:41)
[2021-04-08] MEDS: MELATONIN 5 MG TABLETS PO SCH (21:41)
[2021-04-08] MEDS: SENNOSIDES 8.6MG TABLET (FP) PO SCH (21:41)
[2021-04-08] MEDS: LATANOPROST 0.005% OPHTH SOLN 2.5ML BOTTLE OU SCH (21:43)
[2021-04-08] MEDS ORDERED: INSULIN (NOVOLOG) ASPART 100 UNITS/ML 10ML VIAL SQ ONE ×2 (21:45)
[2021-04-09] MEDS: INSULIN SLIDING SCALE (NOVOLOG) 1 VIAL SQ SCH (06:27)
[2021-04-09 07:50] LABS: BASO % 0.6 % (0-2.0); EOS % 1.8 % (0-4.5); HEMATOCRIT 25.8 % (32.4-45.2); HEMOGLOBIN 8.5 GM/dL (10.7-15.3); LYMPH % 19.7 % (8-40); MCH 29.6 pg (25.7-33.7); MEAN CELL VOLUME 89.7 fl (80-96); MEAN PLT VOLUME 7.7 fl (7.5-11.1); MONO % 10.1 % (3.8-10.2); NEUT % 67.8 % (42.8-82.8); PLATELET COUNT 273 10^3/uL (134-434); RBC 2.88 M/mm3 (3.60-5.2); RDW 14.5 % (11.6-15.6)
[2021-04-09 08:07] LABS: BLOOD UREA NITROGEN 66.5 mg/dL (7-18); CALCIUM 8.5 mg/dL (8.5-10.1)
[2021-04-09 08:11] LABS: CREATININE 1.6 mg/dL (0.55-1.3)
[2021-04-09] MEDS ORDERED: FUROSEMIDE 20 MG TABLET (FP) ONE ×2 (09:55→10:06)
[2021-04-09] MEDS ORDERED: FUROSEMIDE 40 MG TABLET (FP) ONE ×2 (09:55→10:06)
[2021-04-09] MEDS: FUROSEMIDE 80 MG, FUROSEMIDE 20 MG PO SCH (09:59)
[2021-04-09] MEDS: CEPHALEXIN MONOHYDRATE 500 MG CAPSULE (UD) PO SCH (10:00)
[2021-04-09] MEDS: FERROUS SO4 325 MG TABLET (FP) PO SCH (10:00)
[2021-04-09] MEDS: metoPROLOL SUCCINATE 25 MG TAB.SR.24H (FP) PO SCH (10:00)
[2021-04-09] MEDS: CYANOCOBALAMIN 1,000 MCG TABLET (FP) PO SCH (10:00)
[2021-04-09] MEDS: MONTELUKAST NA 10 MG TABLET PO SCH (10:00)
[2021-04-09] MEDS: DOCUSATE SODIUM 100 MG CAPSULE (FP) PO SCH (10:00)
[2021-04-09] MEDS: PANTOPRAZOLE 40 MG TABLET PO SCH (10:00)
[2021-04-09] MEDS: LETROZOLE 2.5 MG TABLET (FP) PO SCH (10:01)
[2021-04-09] MEDS: TAMSULOSIN HCL 0.4 MG CAP PO SCH (10:01)
[2021-04-09] MEDS: BUDESONIDE/FORMETEROL FUMARATE 80/4.5 mcg INHALER IH SCH (10:02)
[2021-04-09] MEDS: DORZOLAMIDE 2% HCL OPHTHALMIC SOLUTION 10 ML BOTTLE OU SCH (10:02)
[2021-04-09] MEDS ORDERED: INSULIN (NOVOLOG) ASPART 100 UNITS/ML 10ML VIAL ONE (10:50)
[2021-04-09] MEDS ORDERED: INSULIN SLIDING SCALE (NOVOLOG) 1 VIAL SQ SCH (11:00)
[2021-04-09 14:21] VITALS: BP 111/51; PULSE 78; TEMP 97.8
== END 2021-04-09 15:32 | disposition home health service (06) | DRG 378 ==
LOC: JER 10:28 → JERBED 16:17 → J7W 23:40
PROVIDERS: ADMIT Specialist; ATTEND Specialist
DX: K92.2 Gastrointestinal hemorrhage, unspecified (principal); N17.9 Acute kidney failure, unspecified; N39.0 Urinary tract infection, site not specified; I69.354 Hemiplegia and hemiparesis following cerebral infarction affecting left non-dominant side; J44.1 Chronic obstructive pulmonary disease with (acute) exacerbation; E78.5 Hyperlipidemia, unspecified; C50.919 Malignant neoplasm of unspecified site of unspecified female breast; I50.9 Heart failure, unspecified; J45.909 Unspecified asthma, uncomplicated; E11.319 Type 2 diabetes mellitus with unspecified diabetic retinopathy without macular edema; I11.0 Hypertensive heart disease with heart failure; E11.21 Type 2 diabetes mellitus with diabetic nephropathy; D64.9 Anemia, unspecified; I25.10 Atherosclerotic heart disease of native coronary artery without angina pectoris
CPT/HCPCS: 36415; 80048; 80053; 81003; 82272; 82550; 82607; 82728; 82962; 83540; 83550; 84439; 84443; 84484; 85025; 85027; 85610; 85730; 86140; 86850; 86900; 86901; 87086; 87186; 93005; 93010; 99285-25; C9803; U0003; U0005

== ENCOUNTER 2021-07-10 12:57 | Inpatient (IN) | payer OTHER ==
[2021-07-10] MEDS ORDERED: SODIUM CHLORIDE 2,177 ML IV ONE (13:26)
[2021-07-10] MEDS ORDERED: ACETAMINOPHEN 1000 MG/100 ML BAG IVPB ONE (13:27)
[2021-07-10] MEDS ORDERED: DEXAMETHASONE SOD PHOSPHATE 10 MG/1 ML VIAL IVPUSH ONE (13:49)
[2021-07-10] MEDS ORDERED: ALBUTEROL SO4 2.5/IPRATROPIUM 0.5 INH SOL 3 ML VIAL.NEB. NEB ONE ×2 (14:17→14:33)
[2021-07-10] MEDS ORDERED: DEXAMETHASONE SOD PHOSPHATE 10 MG/1 ML VIAL ONE (14:18)
[2021-07-10] MEDS ORDERED: ACETAMINOPHEN INJECTION 100 ML IVPB ONE (14:18)
[2021-07-10] MEDS ORDERED: CEFTRIAXONE 1 GM in DEXTROSE 5%-WATER - 100 ML IVPB ONE (14:25)
[2021-07-10] MEDS ORDERED: AZITHROMYCIN IVPB 500 MG in DEXTROSE 5%-WATER - 250 ML IVPB ONE (14:25)
[2021-07-10] MEDS: ALBUTEROL SO4 2.5/IPRATROPIUM 0.5 INH SOL 3 ML VIAL.NEB. NEB SCH ×4 (14:35→15:17)
[2021-07-10] MEDS ORDERED: CEFTRIAXONE 1 GM/50 ML BAG ONE (14:36)
[2021-07-10] MEDS ORDERED: AZITHROMYCIN IVPB 500 MG/250 ML BAG IVPB ONE (14:37)
[2021-07-10 14:44] LABS: VENOUS BASE EXCESS 1.2 mmol/L (-2-2); VENOUS O2 SATURATION 89.4 % (70-80); VENOUS PCO2 58.6 mmHg (38-52); VENOUS PH 7.303 (7.310-7.410)
[2021-07-10 14:56] LABS: BASO % 0.2 % (0-2.0); HEMATOCRIT 29.6 % (32.4-45.2); HEMOGLOBIN 9.4 GM/dL (10.7-15.3); INR 1.06 (0.83-1.09); LYMPH % 7.9 % (8-40); MCH 27.8 pg (25.7-33.7); MCHC 31.9 g/dl (32.0-36.0); MEAN CELL VOLUME 87.1 fl (80-96); MEAN PLT VOLUME 7.8 fl (7.5-11.1); MONO % 9.2 % (3.8-10.2); NEUT % 82.7 % (42.8-82.8); PLATELET COUNT 258 10^3/uL (134-434); PROTHROMBIN TIME (PATIENT) 12.4 SEC (9.7-13.0); RDW 16.9 % (11.6-15.6); WHITE BLOOD COUNT 6.3 K/mm3 (4.0-10.0)
[2021-07-10 14:59] LABS: ACTIVATED PTT 25.8 SECONDS (25.2-36.5)
[2021-07-10 15:23] LABS: CHLORIDE 100 mmol/L (98-107); SODIUM 138 mmol/L (136-145)
[2021-07-10 15:25] LABS: CALCIUM 8.3 mg/dL (8.5-10.1)
[2021-07-10 15:26] LABS: ANION GAP 7 MMOL/L (8-16); CO2 31 mmol/L (21-32); GLUCOSE,RANDOM 269 mg/dL (74-106)
[2021-07-10 15:29] LABS: CREATININE 1.5 mg/dL (0.55-1.3); SGOT/AST 21 U/L (15-37); SGPT/ALT 13 U/L (13-61)
[2021-07-10 15:30] LABS: BILIRUBIN,TOTAL 0.2 mg/dL (0.2-1); TOT PROT 6.8 g/dl (6.4-8.2)
[2021-07-10 15:31] LABS: ALK PHOS 73 U/L (45-117)
[2021-07-10] MEDS ORDERED: ACETAMINOPHEN 1000 MG/100 ML BAG IVPB PRN (18:09)
[2021-07-10] MEDS ORDERED: ALBUTEROL SO4 2.5/IPRATROPIUM 0.5 INH SOL 3 ML VIAL.NEB. NEB PRN ×2 (18:10→18:33)
[2021-07-10] MEDS ORDERED: LACTATED RINGERS SOLUTION 1,000 ML/1,000 ML INFUS.BAG IV SCH (18:15)
[2021-07-10] MEDS ORDERED: ALBUTEROL SO4 HFA INHALER IH PRN (18:48)
[2021-07-10 19:18] LABS: EPI CELLS 9 /uL (0-25.1); HYALINE CASTS 4 /uL (0-3.1); PH,URINE 5.5 (5.0-8.0); URINE APPEARANCE TURBID; URINE BACTERIA 6906 /uL (0-1359); URINE BILIRUBIN NEGATIVE (NEGATIVE); URINE COLOR YELLOW; URINE GLUCOSE (UA) 1+ (NEGATIVE); URINE KETONE NEGATIVE (NEGATIVE); URINE LEUK ESTERASE 2+ (NEGATIVE); URINE NITRITE NEGATIVE (NEGATIVE); URINE PROTEIN 3+ (NEGATIVE); URINE RBC 51 /uL (0-23.9); URINE UROBILINOGEN 0.2 mg/dL (0.2-1.0); URINE WBC 6070 /uL (0-25.8)
[2021-07-10] MEDS ORDERED: MELATONIN 5 MG TABLETS PO SCH (22:00)
[2021-07-10] MEDS ORDERED: ATORVASTATIN CA 40 MG TABLET (FP) PO SCH (22:00)
[2021-07-10] MEDS ORDERED: SENNOSIDES 8.6MG TABLET (FP) PO SCH (22:00)
[2021-07-10] MEDS: INSULIN SLIDING SCALE (NOVOLOG) 1 VIAL SQ SCH (23:06)
[2021-07-10] MEDS: DOCUSATE SODIUM 100 MG CAPSULE (FP) PO SCH (23:12)
[2021-07-11] MEDS: BUDESONIDE/FORMETEROL FUMARATE 80/4.5 mcg INHALER IH SCH ×3 (00:32→21:23)
[2021-07-11 01:06] VITALS: BMI 23.8
[2021-07-11] MEDS: INSULIN SLIDING SCALE (NOVOLOG) 1 VIAL SQ SCH ×4 (06:06→21:24)
[2021-07-11] MEDS ORDERED: TAMSULOSIN HCL 0.4 MG CAP PO SCH (08:30)
[2021-07-11] MEDS ORDERED: MONTELUKAST NA 10 MG TABLET PO SCH (10:00)
[2021-07-11] MEDS ORDERED: DEXAMETHASONE SOD PHOSPHATE 10 MG/1 ML VIAL IVPUSH SCH (10:00)
[2021-07-11] MEDS ORDERED: CEFTRIAXONE 1 GM in DEXTROSE 5%-WATER - 50 ML IVPB SCH (10:00)
[2021-07-11] MEDS ORDERED: ASPIRIN COATED 81 MG TABLET.EC PO SCH (10:00)
[2021-07-11] MEDS ORDERED: AZITHROMYCIN IVPB 500 MG/250 ML BAG IVPB SCH (10:00)
[2021-07-11] MEDS ORDERED: metoPROLOL SUCCINATE 25 MG TAB.SR.24H (FP) PO SCH (10:00)
[2021-07-11] MEDS ORDERED: cefTRIAXone SODIUM 1 GM VIAL ONE (10:18)
[2021-07-11] MEDS ORDERED: DEXTROSE 5%-WATER - 50 ML IVPB ONE (10:19)
[2021-07-11] MEDS ORDERED: PANTOPRAZOLE 40 MG TABLET PO SCH (10:30)
[2021-07-11] MEDS ORDERED: INSULIN (LEVEMIR) 100 UNITS/ML UNITS SQ SCH (10:30)
[2021-07-11 10:33] LABS: BLOOD UREA NITROGEN 52.7 mg/dL (7-18); CALCIUM 8.6 mg/dL (8.5-10.1); MAGNESIUM 2.1 mg/dL (1.8-2.4)
[2021-07-11 10:36] LABS: CREATININE 1.6 mg/dL (0.55-1.3)
[2021-07-11] MEDS: DOCUSATE SODIUM 100 MG CAPSULE (FP) PO SCH ×2 (10:36→21:22)
[2021-07-11 10:38] LABS: BILIRUBIN,TOTAL 0.2 mg/dL (0.2-1); TOT PROT 5.8 g/dl (6.4-8.2)
[2021-07-11 10:44] LABS: ALBUMIN 2.4 g/dl (3.4-5.0)
[2021-07-11] MEDS: DEXAMETHASONE SOD PHOSPHATE 4 MG/1 ML VIAL IVPUSH SCH (13:17)
[2021-07-11] MEDS ORDERED: SODIUM CHLORIDE 500 ML IV STA (13:35)
[2021-07-11] MEDS ORDERED: SODIUM CHLORIDE 1,000 ML IV SCH ×2 (13:45→14:35)
[2021-07-11] MEDS ORDERED: REMDESIVIR 200 MG in SODIUM CHLORIDE 250 ML IVPB ONE (15:00)
[2021-07-11] MEDS ORDERED: SODIUM CHLORIDE 250 ML IV STA (18:38)
[2021-07-11] MEDS ORDERED: ALBUTEROL SO4 HFA INHALER IH PRN (19:45)
[2021-07-11] MEDS: SENNOSIDES 8.6MG TABLET (FP) PO SCH (21:22)
[2021-07-11] MEDS: MELATONIN 5 MG TABLETS PO SCH (21:23)
[2021-07-11] MEDS: ATORVASTATIN CA 40 MG TABLET (FP) PO SCH (21:23)
[2021-07-11] MEDS: INSULIN (LEVEMIR) 100 UNITS/ML UNITS SQ SCH (21:24)
[2021-07-12] MEDS: INSULIN SLIDING SCALE (NOVOLOG) 1 VIAL SQ SCH ×4 (06:48→21:18)
[2021-07-12] MEDS ORDERED: DEXTROSE 5%-WATER - 50 ML IVPB ONE (08:49)
[2021-07-12] MEDS ORDERED: PT OWN MED DRAWER 7, Y5N ONE (08:49)
[2021-07-12] MEDS ORDERED: cefTRIAXone SODIUM 1 GM VIAL ONE (08:49)
[2021-07-12] MEDS: DOCUSATE SODIUM 100 MG CAPSULE (FP) PO SCH ×2 (09:01→21:15)
[2021-07-12] MEDS: PANTOPRAZOLE 40 MG TABLET PO SCH (09:01)
[2021-07-12] MEDS: metoPROLOL SUCCINATE 25 MG TAB.SR.24H (FP) PO SCH (09:01)
[2021-07-12] MEDS: TAMSULOSIN HCL 0.4 MG CAP PO SCH (09:01)
[2021-07-12] MEDS: DEXAMETHASONE SOD PHOSPHATE 4 MG/1 ML VIAL IVPUSH SCH (09:01)
[2021-07-12] MEDS: AZITHROMYCIN IVPB 500 MG/250 ML BAG IVPB SCH (09:02)
[2021-07-12] MEDS: INSULIN (LEVEMIR) 100 UNITS/ML UNITS SQ SCH ×2 (09:02→21:16)
[2021-07-12] MEDS: CEFTRIAXONE 1 GM in DEXTROSE 5%-WATER - 50 ML IVPB SCH (09:02)
[2021-07-12] MEDS: MONTELUKAST NA 10 MG TABLET PO SCH (09:02)
[2021-07-12] MEDS: ASPIRIN COATED 81 MG TABLET.EC PO SCH (09:02)
[2021-07-12] MEDS: BUDESONIDE/FORMETEROL FUMARATE 80/4.5 mcg INHALER IH SCH ×2 (09:30→23:12)
[2021-07-12 10:46] LABS: BASO % 0.2 % (0-2.0); HEMATOCRIT 28.6 % (32.4-45.2); HEMOGLOBIN 9.2 GM/dL (10.7-15.3); LYMPH % 6.4 % (8-40); MCH 28.4 pg (25.7-33.7); MCHC 32.1 g/dl (32.0-36.0); MEAN CELL VOLUME 88.5 fl (80-96); MONO % 5.6 % (3.8-10.2); NEUT % 87.8 % (42.8-82.8); PLATELET COUNT 301 10^3/uL (134-434); RBC 3.24 M/mm3 (3.60-5.2); RDW 17.2 % (11.6-15.6); WHITE BLOOD COUNT 7.7 K/mm3 (4.0-10.0)
[2021-07-12 11:08] LABS: ALBUMIN 2.4 g/dl (3.4-5.0)
[2021-07-12 11:09] LABS: ALBUMIN 2.4 g/dl (3.4-5.0); BLOOD UREA NITROGEN 57.5 mg/dL (7-18); CALCIUM 8.2 mg/dL (8.5-10.1)
[2021-07-12 11:10] LABS: MAGNESIUM 1.9 mg/dL (1.8-2.4)
[2021-07-12 11:11] LABS: BILIRUBIN,DIRECT 0.1 mg/dL (0.0-0.2)
[2021-07-12 11:12] LABS: CREATININE 1.3 mg/dL (0.55-1.3)
[2021-07-12 11:13] LABS: BILIRUBIN,TOTAL 0.2 mg/dL (0.2-1)
[2021-07-12 11:26] LABS: BILIRUBIN,TOTAL 0.2 mg/dL (0.2-1)
[2021-07-12] MEDS: SODIUM ZIRCONIUM CYCLOSILICATE (LOKELMA) 5 GM PACKET PO SCH (11:56)
[2021-07-12] MEDS: SODIUM CHLORIDE 0.45% 1,000 ML IV SCH (13:03)
[2021-07-12] MEDS: REMDESIVIR 100 MG in SODIUM CHLORIDE 250 ML IVPB SCH (14:59)
[2021-07-12] MEDS: MELATONIN 5 MG TABLETS PO SCH (21:14)
[2021-07-12] MEDS: ATORVASTATIN CA 40 MG TABLET (FP) PO SCH (21:15)
[2021-07-12] MEDS: SENNOSIDES 8.6MG TABLET (FP) PO SCH (21:15)
[2021-07-13] MEDS: INSULIN SLIDING SCALE (NOVOLOG) 1 VIAL SQ SCH ×4 (06:10→21:07)
[2021-07-13] MEDS: SODIUM CHLORIDE 0.45% 1,000 ML IV SCH ×3 (06:11→21:06)
[2021-07-13 07:37] LABS: HEMATOCRIT 27.1 % (32.4-45.2); HEMOGLOBIN 8.6 GM/dL (10.7-15.3); MCH 27.6 pg (25.7-33.7); MCHC 31.9 g/dl (32.0-36.0); MEAN CELL VOLUME 86.6 fl (80-96); MEAN PLT VOLUME 7.7 fl (7.5-11.1); PLATELET COUNT 275 10^3/uL (134-434); RBC 3.13 M/mm3 (3.60-5.2); RDW 16.6 % (11.6-15.6); WHITE BLOOD COUNT 4.1 K/mm3 (4.0-10.0)
[2021-07-13 07:49] LABS: ALBUMIN 2.3 g/dl (3.4-5.0); BLOOD UREA NITROGEN 60.6 mg/dL (7-18)
[2021-07-13 07:51] LABS: BILIRUBIN,TOTAL 0.2 mg/dL (0.2-1); TOT PROT 5.5 g/dl (6.4-8.2)
[2021-07-13 07:52] LABS: CREATININE 1.2 mg/dL (0.55-1.3); PHOSPHOROUS 3.4 mg/dL (2.5-4.9)
[2021-07-13 10:24] LABS: ANISOCYTOSIS 2+; MACROCYTOSIS 0; PLATELET ESTIMATE NORMAL
[2021-07-13] MEDS ORDERED: DEXTROSE 5%-WATER - 50 ML IVPB ONE (10:31)
[2021-07-13] MEDS ORDERED: cefTRIAXone SODIUM 1 GM VIAL ONE (10:31)
[2021-07-13] MEDS ORDERED: PT OWN MED DRAWER 7, Y5N ONE (10:31)
[2021-07-13] MEDS: AZITHROMYCIN IVPB 500 MG/250 ML BAG IVPB SCH (10:33)
[2021-07-13] MEDS: CEFTRIAXONE 1 GM in DEXTROSE 5%-WATER - 50 ML IVPB SCH (10:33)
[2021-07-13] MEDS: DEXAMETHASONE SOD PHOSPHATE 4 MG/1 ML VIAL IVPUSH SCH (10:34)
[2021-07-13] MEDS: DOCUSATE SODIUM 100 MG CAPSULE (FP) PO SCH ×2 (10:34→21:05)
[2021-07-13] MEDS: PANTOPRAZOLE 40 MG TABLET PO SCH (10:35)
[2021-07-13] MEDS: ASPIRIN COATED 81 MG TABLET.EC PO SCH (10:35)
[2021-07-13] MEDS: metoPROLOL SUCCINATE 25 MG TAB.SR.24H (FP) PO SCH (10:35)
[2021-07-13] MEDS: TAMSULOSIN HCL 0.4 MG CAP PO SCH (10:35)
[2021-07-13] MEDS: MONTELUKAST NA 10 MG TABLET PO SCH (10:35)
[2021-07-13] MEDS: INSULIN (LEVEMIR) 100 UNITS/ML UNITS SQ SCH ×2 (10:36→21:06)
[2021-07-13] MEDS: BUDESONIDE/FORMETEROL FUMARATE 80/4.5 mcg INHALER IH SCH ×2 (10:37→21:07)
[2021-07-13] MEDS: SODIUM ZIRCONIUM CYCLOSILICATE (LOKELMA) 5 GM PACKET PO SCH (11:21)
[2021-07-13] MEDS: REMDESIVIR 100 MG in SODIUM CHLORIDE 250 ML IVPB SCH (15:48)
[2021-07-13] MEDS: SENNOSIDES 8.6MG TABLET (FP) PO SCH (21:05)
[2021-07-13] MEDS: ATORVASTATIN CA 40 MG TABLET (FP) PO SCH (21:05)
[2021-07-13] MEDS: MELATONIN 5 MG TABLETS PO SCH (21:05)
[2021-07-14] MEDS: INSULIN SLIDING SCALE (NOVOLOG) 1 VIAL SQ SCH ×4 (06:14→21:02)
[2021-07-14 07:45] LABS: HEMATOCRIT 27.3 % (32.4-45.2); HEMOGLOBIN 8.8 GM/dL (10.7-15.3); MCH 28.2 pg (25.7-33.7); MCHC 32.3 g/dl (32.0-36.0); MEAN CELL VOLUME 87.3 fl (80-96); MEAN PLT VOLUME 8.3 fl (7.5-11.1); PLATELET COUNT 300 10^3/uL (134-434); RBC 3.13 M/mm3 (3.60-5.2); RDW 16.7 % (11.6-15.6)
[2021-07-14 08:07] LABS: PHOSPHOROUS 3.4 mg/dL (2.5-4.9)
[2021-07-14 08:08] LABS: BILIRUBIN,TOTAL 0.2 mg/dL (0.2-1); BLOOD UREA NITROGEN 49.7 mg/dL (7-18)
[2021-07-14 08:09] LABS: TOT PROT 5.3 g/dl (6.4-8.2)
[2021-07-14 08:10] LABS: CALCIUM 7.4 mg/dL (8.5-10.1); CREATININE 1.1 mg/dL (0.55-1.3); MAGNESIUM 1.7 mg/dL (1.8-2.4)
[2021-07-14] MEDS ORDERED: MAGNESIUM 1GM/D5W - 1 GM/100 ML IVPB IVPB ONE (08:19)
[2021-07-14 09:09] LABS: ANISOCYTOSIS 3+; MACROCYTOSIS 0; PLATELET ESTIMATE NORMAL
[2021-07-14] MEDS ORDERED: DEXTROSE 5%-WATER - 50 ML IVPB ONE (09:16)
[2021-07-14] MEDS ORDERED: cefTRIAXone SODIUM 1 GM VIAL ONE (09:16)
[2021-07-14] MEDS: DEXAMETHASONE SOD PHOSPHATE 4 MG/1 ML VIAL IVPUSH SCH (09:21)
[2021-07-14] MEDS: TAMSULOSIN HCL 0.4 MG CAP PO SCH (09:21)
[2021-07-14] MEDS: CEFTRIAXONE 1 GM in DEXTROSE 5%-WATER - 50 ML IVPB SCH (09:21)
[2021-07-14] MEDS: DOCUSATE SODIUM 100 MG CAPSULE (FP) PO SCH ×2 (09:21→21:01)
[2021-07-14] MEDS: MONTELUKAST NA 10 MG TABLET PO SCH (09:21)
[2021-07-14] MEDS: metoPROLOL SUCCINATE 25 MG TAB.SR.24H (FP) PO SCH (09:23)
[2021-07-14] MEDS: PANTOPRAZOLE 40 MG TABLET PO SCH (09:23)
[2021-07-14] MEDS: ASPIRIN COATED 81 MG TABLET.EC PO SCH (09:23)
[2021-07-14] MEDS: BUDESONIDE/FORMETEROL FUMARATE 80/4.5 mcg INHALER IH SCH ×2 (11:10→21:02)
[2021-07-14] MEDS: INSULIN (LEVEMIR) 100 UNITS/ML UNITS SQ SCH ×2 (11:10→21:02)
[2021-07-14] MEDS: POLYETHYLENE GLYCOL (HEALTHYLAX) 3350 17 GM PACKET PO SCH (11:10)
[2021-07-14] MEDS: SODIUM ZIRCONIUM CYCLOSILICATE (LOKELMA) 5 GM PACKET PO SCH (13:36)
[2021-07-14] MEDS: HEPARIN NA (PORCINE) 5,000 UNITS/ML 1ML VIAL SQ SCH ×2 (13:36→21:02)
[2021-07-14] MEDS: SODIUM CHLORIDE 0.45% 1,000 ML IV SCH ×2 (13:37→17:30)
[2021-07-14] MEDS: REMDESIVIR 100 MG in SODIUM CHLORIDE 250 ML IVPB SCH (15:23)
[2021-07-14] MEDS ORDERED: PT OWN MED DRAWER 7, Y5N ONE (20:50)
[2021-07-14] MEDS: ATORVASTATIN CA 40 MG TABLET (FP) PO SCH (21:02)
[2021-07-14] MEDS: MELATONIN 5 MG TABLETS PO SCH (21:02)
[2021-07-14] MEDS: SENNOSIDES 8.6MG TABLET (FP) PO SCH (21:02)
[2021-07-15] MEDS: HEPARIN NA (PORCINE) 5,000 UNITS/ML 1ML VIAL SQ SCH ×3 (06:48→21:15)
[2021-07-15] MEDS: INSULIN SLIDING SCALE (NOVOLOG) 1 VIAL SQ SCH ×4 (06:49→21:16)
[2021-07-15] MEDS: TAMSULOSIN HCL 0.4 MG CAP PO SCH (09:00)
[2021-07-15] MEDS: ASPIRIN COATED 81 MG TABLET.EC PO SCH (11:00)
[2021-07-15] MEDS: PANTOPRAZOLE 40 MG TABLET PO SCH (11:00)
[2021-07-15] MEDS: INSULIN (LEVEMIR) 100 UNITS/ML UNITS SQ SCH ×2 (11:00→21:15)
[2021-07-15] MEDS: MONTELUKAST NA 10 MG TABLET PO SCH (11:00)
[2021-07-15] MEDS: BUDESONIDE/FORMETEROL FUMARATE 80/4.5 mcg INHALER IH SCH ×2 (11:00→21:21)
[2021-07-15] MEDS: CEFTRIAXONE 1 GM in DEXTROSE 5%-WATER - 50 ML IVPB SCH (11:00)
[2021-07-15] MEDS: POLYETHYLENE GLYCOL (HEALTHYLAX) 3350 17 GM PACKET PO SCH (11:00)
[2021-07-15] MEDS: DOCUSATE SODIUM 100 MG CAPSULE (FP) PO SCH ×2 (11:00→21:14)
[2021-07-15] MEDS: metoPROLOL SUCCINATE 25 MG TAB.SR.24H (FP) PO SCH (11:00)
[2021-07-15] MEDS: DEXAMETHASONE SOD PHOSPHATE 4 MG/1 ML VIAL IVPUSH SCH (11:00)
[2021-07-15] MEDS ORDERED: cefTRIAXone SODIUM 1 GM VIAL ONE (11:04)
[2021-07-15] MEDS ORDERED: DEXTROSE 5%-WATER - 50 ML IVPB ONE (11:04)
[2021-07-15] MEDS: SODIUM ZIRCONIUM CYCLOSILICATE (LOKELMA) 5 GM PACKET PO SCH (11:12)
[2021-07-15] MEDS: SODIUM CHLORIDE 0.45% 1,000 ML IV SCH ×2 (12:45→15:40)
[2021-07-15] MEDS ORDERED: PT OWN MED DRAWER 7, Y5N ONE (14:26)
[2021-07-15] MEDS: REMDESIVIR 100 MG in SODIUM CHLORIDE 250 ML IVPB SCH (14:29)
[2021-07-15] MEDS ORDERED: ACETAMINOPHEN 325 MG TABLET (FP) PO PRN (18:32)
[2021-07-15] MEDS: MELATONIN 5 MG TABLETS PO SCH (21:14)
[2021-07-15] MEDS: SENNOSIDES 8.6MG TABLET (FP) PO SCH (21:15)
[2021-07-15] MEDS: ATORVASTATIN CA 40 MG TABLET (FP) PO SCH (21:15)
[2021-07-16] MEDS: INSULIN SLIDING SCALE (NOVOLOG) 1 VIAL SQ SCH ×4 (06:45→21:09)
[2021-07-16] MEDS: HEPARIN NA (PORCINE) 5,000 UNITS/ML 1ML VIAL SQ SCH ×3 (06:45→21:08)
[2021-07-16] MEDS ORDERED: DEXTROSE 5%-WATER - 50 ML IVPB ONE (09:18)
[2021-07-16] MEDS ORDERED: cefTRIAXone SODIUM 1 GM VIAL ONE (09:18)
[2021-07-16] MEDS: POLYETHYLENE GLYCOL (HEALTHYLAX) 3350 17 GM PACKET PO SCH (09:56)
[2021-07-16] MEDS: MONTELUKAST NA 10 MG TABLET PO SCH (09:56)
[2021-07-16] MEDS: TAMSULOSIN HCL 0.4 MG CAP PO SCH (09:56)
[2021-07-16] MEDS: CEFTRIAXONE 1 GM in DEXTROSE 5%-WATER - 50 ML IVPB SCH ×2 (09:56→12:24)
[2021-07-16] MEDS: PANTOPRAZOLE 40 MG TABLET PO SCH (09:57)
[2021-07-16] MEDS: metoPROLOL SUCCINATE 25 MG TAB.SR.24H (FP) PO SCH (09:57)
[2021-07-16] MEDS: DEXAMETHASONE SOD PHOSPHATE 4 MG/1 ML VIAL IVPUSH SCH (09:57)
[2021-07-16] MEDS: ASPIRIN COATED 81 MG TABLET.EC PO SCH (09:58)
[2021-07-16] MEDS: DOCUSATE SODIUM 100 MG CAPSULE (FP) PO SCH ×2 (09:58→21:09)
[2021-07-16] MEDS: BUDESONIDE/FORMETEROL FUMARATE 80/4.5 mcg INHALER IH SCH ×2 (09:58→21:10)
[2021-07-16] MEDS: INSULIN (LEVEMIR) 100 UNITS/ML UNITS SQ SCH ×2 (10:04→21:09)
[2021-07-16] MEDS: SODIUM ZIRCONIUM CYCLOSILICATE (LOKELMA) 5 GM PACKET PO SCH (12:23)
[2021-07-16] MEDS: SODIUM CHLORIDE 0.45% 1,000 ML IV SCH (15:06)
[2021-07-16] MEDS: MELATONIN 5 MG TABLETS PO SCH (21:09)
[2021-07-16] MEDS: SENNOSIDES 8.6MG TABLET (FP) PO SCH (21:09)
[2021-07-16] MEDS: ATORVASTATIN CA 40 MG TABLET (FP) PO SCH (21:09)
[2021-07-17] MEDS: HEPARIN NA (PORCINE) 5,000 UNITS/ML 1ML VIAL SQ SCH ×3 (05:52→21:16)
[2021-07-17] MEDS: INSULIN SLIDING SCALE (NOVOLOG) 1 VIAL SQ SCH ×4 (06:53→21:17)
[2021-07-17 07:28] LABS: CALCIUM 7.6 mg/dL (8.5-10.1)
[2021-07-17 07:29] LABS: BLOOD UREA NITROGEN 39.8 mg/dL (7-18)
[2021-07-17 07:32] LABS: CREATININE 0.9 mg/dL (0.55-1.3); PHOSPHOROUS 2.8 mg/dL (2.5-4.9)
[2021-07-17 07:47] LABS: HEMOGLOBIN 8.7 GM/dL (10.7-15.3); MCH 27.9 pg (25.7-33.7); MCHC 32.1 g/dl (32.0-36.0); MEAN CELL VOLUME 86.9 fl (80-96); MEAN PLT VOLUME 8.2 fl (7.5-11.1); PLATELET COUNT 407 10^3/uL (134-434); RBC 3.11 M/mm3 (3.60-5.2); RDW 16.7 % (11.6-15.6); WHITE BLOOD COUNT 5.6 K/mm3 (4.0-10.0)
[2021-07-17] MEDS ORDERED: cefTRIAXone SODIUM 1 GM VIAL ONE (09:32)
[2021-07-17] MEDS ORDERED: DEXTROSE 5%-WATER - 50 ML IVPB ONE (09:33)
[2021-07-17] MEDS: TAMSULOSIN HCL 0.4 MG CAP PO SCH (09:48)
[2021-07-17] MEDS: ASPIRIN COATED 81 MG TABLET.EC PO SCH (09:48)
[2021-07-17] MEDS: metoPROLOL SUCCINATE 25 MG TAB.SR.24H (FP) PO SCH (09:49)
[2021-07-17] MEDS: MONTELUKAST NA 10 MG TABLET PO SCH (09:49)
[2021-07-17] MEDS: PANTOPRAZOLE 40 MG TABLET PO SCH (09:49)
[2021-07-17] MEDS: DOCUSATE SODIUM 100 MG CAPSULE (FP) PO SCH ×2 (09:49→21:16)
[2021-07-17] MEDS: POLYETHYLENE GLYCOL (HEALTHYLAX) 3350 17 GM PACKET PO SCH (09:49)
[2021-07-17] MEDS: INSULIN (LEVEMIR) 100 UNITS/ML UNITS SQ SCH ×2 (09:51→21:17)
[2021-07-17] MEDS: BUDESONIDE/FORMETEROL FUMARATE 80/4.5 mcg INHALER IH SCH ×2 (10:44→21:17)
[2021-07-17] MEDS: CEFTRIAXONE 1 GM in DEXTROSE 5%-WATER - 50 ML IVPB SCH (10:44)
[2021-07-17] MEDS: DEXAMETHASONE SOD PHOSPHATE 4 MG/1 ML VIAL IVPUSH SCH (10:45)
[2021-07-17] MEDS ORDERED: DEXAMETHASONE 4 MG TABLET (FP) PO ONE (11:18)
[2021-07-17 11:42] LABS: ANISOCYTOSIS 1+; MACROCYTOSIS 0; PLATELET ESTIMATE NORMAL
[2021-07-17] MEDS: SODIUM ZIRCONIUM CYCLOSILICATE (LOKELMA) 5 GM PACKET PO SCH (12:43)
[2021-07-17] MEDS: MELATONIN 5 MG TABLETS PO SCH (21:16)
[2021-07-17] MEDS: ATORVASTATIN CA 40 MG TABLET (FP) PO SCH (21:17)
[2021-07-17] MEDS: SENNOSIDES 8.6MG TABLET (FP) PO SCH (21:17)
[2021-07-18] MEDS: HEPARIN NA (PORCINE) 5,000 UNITS/ML 1ML VIAL SQ SCH ×3 (06:24→21:22)
[2021-07-18] MEDS: INSULIN SLIDING SCALE (NOVOLOG) 1 VIAL SQ SCH ×4 (06:24→21:21)
[2021-07-18 07:48] LABS: HEMATOCRIT 26.9 % (32.4-45.2); HEMOGLOBIN 8.6 GM/dL (10.7-15.3); MCH 27.7 pg (25.7-33.7); MCHC 32.2 g/dl (32.0-36.0); MEAN CELL VOLUME 86.1 fl (80-96); MEAN PLT VOLUME 7.6 fl (7.5-11.1); PLATELET COUNT 409 10^3/uL (134-434); RBC 3.12 M/mm3 (3.60-5.2); RDW 17.3 % (11.6-15.6); WHITE BLOOD COUNT 4.9 K/mm3 (4.0-10.0)
[2021-07-18 08:12] LABS: BLOOD UREA NITROGEN 33.3 mg/dL (7-18)
[2021-07-18 08:15] LABS: CREATININE 0.9 mg/dL (0.55-1.3)
[2021-07-18 08:17] LABS: BILIRUBIN,TOTAL 0.2 mg/dL (0.2-1); TOT PROT 5.2 g/dl (6.4-8.2)
[2021-07-18] MEDS: TAMSULOSIN HCL 0.4 MG CAP PO SCH (08:18)
[2021-07-18] MEDS: MONTELUKAST NA 10 MG TABLET PO SCH (10:01)
[2021-07-18] MEDS: PANTOPRAZOLE 40 MG TABLET PO SCH (10:01)
[2021-07-18] MEDS: DOCUSATE SODIUM 100 MG CAPSULE (FP) PO SCH ×2 (10:01→21:20)
[2021-07-18] MEDS: ASPIRIN COATED 81 MG TABLET.EC PO SCH (10:01)
[2021-07-18] MEDS: metoPROLOL SUCCINATE 25 MG TAB.SR.24H (FP) PO SCH (10:01)
[2021-07-18] MEDS: INSULIN (LEVEMIR) 100 UNITS/ML UNITS SQ SCH ×2 (10:02→21:21)
[2021-07-18] MEDS: BUDESONIDE/FORMETEROL FUMARATE 80/4.5 mcg INHALER IH SCH ×2 (10:02→21:21)
[2021-07-18] MEDS: CEFTRIAXONE 1 GM in DEXTROSE 5%-WATER - 50 ML IVPB SCH (10:02)
[2021-07-18] MEDS: POLYETHYLENE GLYCOL (HEALTHYLAX) 3350 17 GM PACKET PO SCH (10:02)
[2021-07-18 10:45] LABS: ANISOCYTOSIS 2+; MACROCYTOSIS 0; PLATELET ESTIMATE NORMAL
[2021-07-18] MEDS: SODIUM ZIRCONIUM CYCLOSILICATE (LOKELMA) 5 GM PACKET PO SCH (11:03)
[2021-07-18] MEDS: MELATONIN 5 MG TABLETS PO SCH (21:20)
[2021-07-18] MEDS: ATORVASTATIN CA 40 MG TABLET (FP) PO SCH (21:20)
[2021-07-18] MEDS: SENNOSIDES 8.6MG TABLET (FP) PO SCH (21:20)
[2021-07-19] MEDS: INSULIN SLIDING SCALE (NOVOLOG) 1 VIAL SQ SCH ×2 (06:19→12:12)
[2021-07-19] MEDS: HEPARIN NA (PORCINE) 5,000 UNITS/ML 1ML VIAL SQ SCH (06:19)
[2021-07-19 06:47] VITALS: PULSE 60; TEMP 98.9
[2021-07-19 08:11] LABS: CALCIUM 7.9 mg/dL (8.5-10.1)
[2021-07-19 08:12] LABS: BLOOD UREA NITROGEN 32.7 mg/dL (7-18)
[2021-07-19 08:15] LABS: CREATININE 0.9 mg/dL (0.55-1.3)
[2021-07-19 08:17] LABS: HEMATOCRIT 27.1 % (32.4-45.2); HEMOGLOBIN 8.7 GM/dL (10.7-15.3); MCH 27.8 pg (25.7-33.7); MEAN CELL VOLUME 86.6 fl (80-96); MEAN PLT VOLUME 7.6 fl (7.5-11.1); PLATELET COUNT 399 10^3/uL (134-434); RBC 3.13 M/mm3 (3.60-5.2); RDW 16.8 % (11.6-15.6); WHITE BLOOD COUNT 5.9 K/mm3 (4.0-10.0)
[2021-07-19] MEDS ORDERED: cefTRIAXone SODIUM 1 GM VIAL ONE (09:33)
[2021-07-19] MEDS ORDERED: DEXTROSE 5%-WATER - 50 ML IVPB ONE (09:33)
[2021-07-19 09:35] LABS: ANISOCYTOSIS 1+; MACROCYTOSIS 0; PLATELET ESTIMATE NORMAL
[2021-07-19] MEDS: TAMSULOSIN HCL 0.4 MG CAP PO SCH ×2 (09:40→09:45)
[2021-07-19] MEDS: DOCUSATE SODIUM 100 MG CAPSULE (FP) PO SCH ×2 (09:45→10:38)
[2021-07-19] MEDS: POLYETHYLENE GLYCOL (HEALTHYLAX) 3350 17 GM PACKET PO SCH (09:46)
[2021-07-19] MEDS: INSULIN (LEVEMIR) 100 UNITS/ML UNITS SQ SCH (09:46)
[2021-07-19] MEDS: PANTOPRAZOLE 40 MG TABLET PO SCH ×2 (09:46→10:37)
[2021-07-19] MEDS: ASPIRIN COATED 81 MG TABLET.EC PO SCH ×2 (09:46→10:38)
[2021-07-19] MEDS: MONTELUKAST NA 10 MG TABLET PO SCH ×2 (09:47→10:37)
[2021-07-19] MEDS: BUDESONIDE/FORMETEROL FUMARATE 80/4.5 mcg INHALER IH SCH (09:47)
[2021-07-19] MEDS: metoPROLOL SUCCINATE 25 MG TAB.SR.24H (FP) PO SCH ×2 (09:47→10:37)
[2021-07-19 10:13] VITALS: BP 162/70
[2021-07-19] MEDS: SODIUM ZIRCONIUM CYCLOSILICATE (LOKELMA) 5 GM PACKET PO SCH (11:56)
== END 2021-07-19 13:10 | disposition home health service (06) | DRG 871 ==
LOC: JER 12:57 → JERBED 13:50 → J5S 21:34 → J2W 07-11 14:12
PROVIDERS: ADMIT Internal Medicine
PROC: XW033E5 Introduction of Remdesivir Anti-infective into Peripheral Vein, Percutaneous Approach, New Technology Group 5 (ICD-10-PCS; principal; 2021-07-11)
DX: A41.89 Other specified sepsis (principal); J96.22 Acute and chronic respiratory failure with hypercapnia; U07.1 COVID-19; J96.21 Acute and chronic respiratory failure with hypoxia; J12.82 Pneumonia due to coronavirus disease 2019; N17.9 Acute kidney failure, unspecified; I13.0 Hypertensive heart and chronic kidney disease with heart failure and stage 1 through stage 4 chronic kidney disease, or unspecified chronic kidney disease; I50.32 Chronic diastolic (congestive) heart failure; J44.1 Chronic obstructive pulmonary disease with (acute) exacerbation; Z99.81 Dependence on supplemental oxygen; D64.9 Anemia, unspecified; N18.30 Chronic kidney disease, stage 3 unspecified; E11.22 Type 2 diabetes mellitus with diabetic chronic kidney disease; D50.9 Iron deficiency anemia, unspecified; K86.89 Other specified diseases of pancreas; E87.5 Hyperkalemia; I25.10 Atherosclerotic heart disease of native coronary artery without angina pectoris
CPT/HCPCS: 36415; 71045-TC-FY; 80048; 80053; 80076; 81003; 82550; 82553; 82728; 82803; 82962; 83605; 83615; 83735; 84100; 84484; 84550; 85025; 85379; 85610; 85730; 86140; 86850; 86900; 86901; 87040; 87086; 87186; 87804; 93005; 93010; 94010; 97116-GP; 97162-GP; 99291; C9399; C9803; J0131; J1100; J1644; U0003; U0005

== ENCOUNTER 2021-09-20 19:37 | Inpatient (IN) | payer OTHER ==
[2021-09-20] MEDS ORDERED: ACETAMINOPHEN 1000 MG/100 ML BAG IVPB ONE (19:58)
[2021-09-20] MEDS ORDERED: SUCRALFATE 1 GM TABLET (FP) PO ONE (19:58)
[2021-09-20] MEDS ORDERED: FAMOTIDINE 10 MG TABLET PO ONE (19:58)
[2021-09-20] MEDS ORDERED: MAG HYDROX/AL HYDROX/SIMETH 30 ML UNIT-DOSE CUP PO ONE (19:58)
[2021-09-20] MEDS ORDERED: SUCRALFATE 1 GM TABLET (FP) ONE ×2 (20:44→20:48)
[2021-09-20] MEDS ORDERED: FAMOTIDINE 10 MG TABLET ONE ×2 (20:44→20:48)
[2021-09-20] MEDS ORDERED: MAG HYDROX/AL HYDROX/SIMETH 30 ML UNIT-DOSE CUP ONE (20:45)
[2021-09-20] MEDS ORDERED: ACETAMINOPHEN INJECTION 100 ML IVPB ONE (20:45)
[2021-09-20 21:48] LABS: BASO % 0.9 % (0-2.0); EOS % 1.3 % (0-4.5); HEMATOCRIT 27.3 % (32.4-45.2); HEMOGLOBIN 8.9 GM/dL (10.7-15.3); LYMPH % 17.4 % (8-40); MCH 28.2 pg (25.7-33.7); MCHC 32.4 g/dl (32.0-36.0); MEAN CELL VOLUME 86.8 fl (80-96); MEAN PLT VOLUME 7.5 fl (7.5-11.1); MONO % 8.3 % (3.8-10.2); NEUT % 72.1 % (42.8-82.8); PLATELET COUNT 337 10^3/uL (134-434); RBC 3.15 M/mm3 (3.60-5.2); RDW 16.1 % (11.6-15.6); WHITE BLOOD COUNT 5.1 K/mm3 (4.0-10.0)
[2021-09-20 22:00] LABS: EPI CELLS >36 /uL (0-25.1); HYALINE CASTS 1 /uL (0-3.1); URINE APPEARANCE TURBID; URINE BILIRUBIN NEGATIVE (NEGATIVE); URINE COLOR YELLOW; URINE GLUCOSE (UA) NEGATIVE (NEGATIVE); URINE KETONE NEGATIVE (NEGATIVE); URINE LEUK ESTERASE 3+ (NEGATIVE); URINE NITRITE NEGATIVE (NEGATIVE); URINE PROTEIN 3+ (NEGATIVE); URINE RBC 62 /uL (0-23.9); URINE WBC 5368 /uL (0-25.8)
[2021-09-20 22:11] LABS: ALBUMIN 2.9 g/dl (3.4-5.0); BLOOD UREA NITROGEN 44.8 mg/dL (7-18); MAGNESIUM 1.6 mg/dL (1.8-2.4)
[2021-09-20 22:13] LABS: CREATININE 1.4 mg/dL (0.55-1.3)
[2021-09-20] MEDS ORDERED: CEFTRIAXONE 1 GM in DEXTROSE 5%-WATER - 100 ML IVPB ONE (22:13)
[2021-09-20 22:14] LABS: PHOSPHOROUS 3.6 mg/dL (2.5-4.9)
[2021-09-20] MEDS ORDERED: SODIUM CHLORIDE 0.9% 500 ML INFUS.BAG IV ONE (22:14)
[2021-09-20 22:15] LABS: BILIRUBIN,TOTAL 0.3 mg/dL (0.2-1); TOT PROT 6.5 g/dl (6.4-8.2)
[2021-09-20] MEDS ORDERED: MAGNESIUM SULF 50% (8.12 MEQ/2 ML-1 GM VIAL) IVPB ONE (22:18)
[2021-09-20 22:52] LABS: URINE BACTERIA 68400 /uL (0-1359)
[2021-09-20] MEDS ORDERED: CEFTRIAXONE 1 GM/50 ML BAG ONE (23:40)
[2021-09-20] MEDS ORDERED: MAGNESIUM 1GM/D5W - 1 GM/100 ML IVPB IVPB ONE (23:41)
[2021-09-21] MEDS ORDERED: MINERAL OIL ENEMA 133 ML ENEMA PR ONE (00:21)
[2021-09-21] MEDS ORDERED: AZITHROMYCIN IVPB 500 MG in DEXTROSE 5%-WATER - 250 ML IVPB ONE (00:21)
[2021-09-21] MEDS ORDERED: AZITHROMYCIN IVPB 500 MG/250 ML BAG IVPB ONE (01:02)
[2021-09-21] MEDS ORDERED: MAGNESIUM SULF 50% (8.12 MEQ/2 ML-1 GM VIAL) IVPB ONE (04:44)
[2021-09-21] MEDS ORDERED: HEPARIN NA (PORCINE) 5,000 UNITS/ML 1ML VIAL ONE (05:38)
[2021-09-21] MEDS ORDERED: MAGNESIUM 1GM/D5W - 1 GM/100 ML IVPB IVPB ONE (05:38)
[2021-09-21] MEDS: HEPARIN NA (PORCINE) 5,000 UNITS/ML 1ML VIAL SQ SCH ×3 (06:37→21:05)
[2021-09-21] MEDS: POLYETHYLENE GLYCOL (HEALTHYLAX) 3350 17 GM PACKET PO SCH ×3 (06:37→21:05)
[2021-09-21] MEDS ORDERED: POLYETHYLENE GLYCOL (HEALTHYLAX) 3350 17 GM PACKET ONE (07:41)
[2021-09-21 08:27] LABS: BASO % 0.8 % (0-2.0); EOS % 1.2 % (0-4.5); LYMPH % 15.9 % (8-40); MCH 28.4 pg (25.7-33.7); MCHC 32.2 g/dl (32.0-36.0); MEAN CELL VOLUME 88.1 fl (80-96); MEAN PLT VOLUME 7.4 fl (7.5-11.1); MONO % 7.7 % (3.8-10.2); NEUT % 74.4 % (42.8-82.8); PLATELET COUNT 331 10^3/uL (134-434); RBC 3.18 M/mm3 (3.60-5.2); RDW 16.5 % (11.6-15.6); WHITE BLOOD COUNT 5.4 K/mm3 (4.0-10.0)
[2021-09-21 08:29] LABS: CALCIUM 8.4 mg/dL (8.5-10.1)
[2021-09-21 08:30] LABS: ALBUMIN 2.7 g/dl (3.4-5.0); BLOOD UREA NITROGEN 41.2 mg/dL (7-18); MAGNESIUM 2.4 mg/dL (1.8-2.4)
[2021-09-21] MEDS: INSULIN SLIDING SCALE (NOVOLOG) 1 VIAL SQ SCH ×4 (08:31→21:06)
[2021-09-21 08:33] LABS: CREATININE 1.2 mg/dL (0.55-1.3); PHOSPHOROUS 3.2 mg/dL (2.5-4.9)
[2021-09-21 08:34] LABS: BILIRUBIN,TOTAL 0.3 mg/dL (0.2-1); TOT PROT 6.1 g/dl (6.4-8.2)
[2021-09-21] MEDS ORDERED: POLYETHYLENE GLYCOL (HEALTHYLAX) 3350 17 GM PACKET PO SCH (10:00)
[2021-09-21] MEDS ORDERED: INSULIN (NOVOLOG) ASPART 100 UNITS/ML 10ML VIAL ONE (11:53)
[2021-09-21] MEDS: ISOSORBIDE MONONITRATE 30 MG TAB.SR.24H (FP) PO SCH (17:01)
[2021-09-21] MEDS ORDERED: cefTRIAXone SODIUM 1 GM VIAL ONE (20:49)
[2021-09-21] MEDS ORDERED: DEXTROSE 5%-WATER - 50 ML IVPB ONE (20:49)
[2021-09-21] MEDS: CEFTRIAXONE 1 GM in DEXTROSE 5%-WATER - 50 ML IVPB SCH (21:04)
[2021-09-21] MEDS: INSULIN (LEVEMIR) 100 UNITS/ML UNITS SQ SCH (21:05)
[2021-09-21] MEDS: BUDESONIDE/FORMETEROL FUMARATE 80/4.5 mcg INHALER IH SCH (21:07)
[2021-09-21] MEDS: ATORVASTATIN CA 40 MG TABLET (FP) PO SCH (21:24)
[2021-09-21] MEDS ORDERED: DOCUSATE SODIUM 100 MG CAPSULE (FP) PO ONE (22:00)
[2021-09-21] MEDS: AZITHROMYCIN IVPB 500 MG/250 ML BAG IVPB SCH (22:39)
[2021-09-22] MEDS: HEPARIN NA (PORCINE) 5,000 UNITS/ML 1ML VIAL SQ SCH ×3 (06:07→21:00)
[2021-09-22] MEDS: INSULIN SLIDING SCALE (NOVOLOG) 1 VIAL SQ SCH ×4 (06:10→21:01)
[2021-09-22] MEDS: INSULIN (LEVEMIR) 100 UNITS/ML UNITS SQ SCH ×2 (06:10→21:00)
[2021-09-22] MEDS: ANASTROZOLE 1 MG TABLET PO SCH (09:04)
[2021-09-22] MEDS: ISOSORBIDE MONONITRATE 30 MG TAB.SR.24H (FP) PO SCH (09:04)
[2021-09-22] MEDS: POLYETHYLENE GLYCOL (HEALTHYLAX) 3350 17 GM PACKET PO SCH ×2 (09:04→21:01)
[2021-09-22] MEDS: MONTELUKAST NA 10 MG TABLET PO SCH (09:04)
[2021-09-22] MEDS: metoPROLOL SUCCINATE 25 MG TAB.SR.24H (FP) PO SCH (09:04)
[2021-09-22] MEDS: FUROSEMIDE 40 MG TABLET (FP) PO SCH (09:04)
[2021-09-22] MEDS: TAMSULOSIN HCL 0.4 MG CAP PO SCH (09:04)
[2021-09-22 09:59] LABS: BASO % 0.6 % (0-2.0); EOS % 2.5 % (0-4.5); HEMATOCRIT 30.9 % (32.4-45.2); HEMOGLOBIN 9.4 GM/dL (10.7-15.3); LYMPH % 12.6 % (8-40); MCH 27.3 pg (25.7-33.7); MCHC 30.5 g/dl (32.0-36.0); MEAN CELL VOLUME 89.6 fl (80-96); MONO % 7.5 % (3.8-10.2); NEUT % 76.8 % (42.8-82.8); PLATELET COUNT 364 10^3/uL (134-434); RBC 3.44 M/mm3 (3.60-5.2); RDW 16.6 % (11.6-15.6); WHITE BLOOD COUNT 5.9 K/mm3 (4.0-10.0)
[2021-09-22] MEDS ORDERED: ISOSORBIDE DINITRATE 20 MG TABLET PO SCH (10:00)
[2021-09-22 10:44] LABS: CALCIUM 9.6 mg/dL (8.5-10.1)
[2021-09-22 10:45] LABS: ALBUMIN 3.1 g/dl (3.4-5.0); BLOOD UREA NITROGEN 41.7 mg/dL (7-18); MAGNESIUM 2.4 mg/dL (1.8-2.4)
[2021-09-22 10:48] LABS: CREATININE 1.3 mg/dL (0.55-1.3)
[2021-09-22 10:49] LABS: BILIRUBIN,TOTAL 0.3 mg/dL (0.2-1); TOT PROT 6.8 g/dl (6.4-8.2)
[2021-09-22] MEDS: SODIUM ZIRCONIUM CYCLOSILICATE (LOKELMA) 5 GM PACKET PO SCH (11:07)
[2021-09-22] MEDS: BUDESONIDE/FORMETEROL FUMARATE 80/4.5 mcg INHALER IH SCH ×2 (11:07→21:01)
[2021-09-22] MEDS ORDERED: cefTRIAXone SODIUM 1 GM VIAL ONE (20:37)
[2021-09-22] MEDS ORDERED: DEXTROSE 5%-WATER - 50 ML IVPB ONE (20:37)
[2021-09-22] MEDS: ATORVASTATIN CA 40 MG TABLET (FP) PO SCH (21:00)
[2021-09-22] MEDS: CEFTRIAXONE 1 GM in DEXTROSE 5%-WATER - 50 ML IVPB SCH (21:01)
[2021-09-22] MEDS: AZITHROMYCIN IVPB 500 MG/250 ML BAG IVPB SCH (21:30)
[2021-09-23] MEDS: HEPARIN NA (PORCINE) 5,000 UNITS/ML 1ML VIAL SQ SCH ×3 (05:55→22:36)
[2021-09-23] MEDS: INSULIN SLIDING SCALE (NOVOLOG) 1 VIAL SQ SCH ×4 (05:59→22:41)
[2021-09-23] MEDS: INSULIN (LEVEMIR) 100 UNITS/ML UNITS SQ SCH ×2 (05:59→22:42)
[2021-09-23] MEDS: ISOSORBIDE MONONITRATE 30 MG TAB.SR.24H (FP) PO SCH (09:06)
[2021-09-23] MEDS: TAMSULOSIN HCL 0.4 MG CAP PO SCH (09:06)
[2021-09-23] MEDS: MONTELUKAST NA 10 MG TABLET PO SCH (09:06)
[2021-09-23] MEDS: SODIUM ZIRCONIUM CYCLOSILICATE (LOKELMA) 5 GM PACKET PO SCH (09:06)
[2021-09-23] MEDS: metoPROLOL SUCCINATE 25 MG TAB.SR.24H (FP) PO SCH (09:06)
[2021-09-23] MEDS: FUROSEMIDE 40 MG TABLET (FP) PO SCH (09:06)
[2021-09-23] MEDS: POLYETHYLENE GLYCOL (HEALTHYLAX) 3350 17 GM PACKET PO SCH ×2 (09:06→22:37)
[2021-09-23] MEDS: BUDESONIDE/FORMETEROL FUMARATE 80/4.5 mcg INHALER IH SCH ×2 (09:12→22:52)
[2021-09-23] MEDS: ANASTROZOLE 1 MG TABLET PO SCH (09:17)
[2021-09-23 09:56] LABS: BASO % 0.7 % (0-2.0); EOS % 4.4 % (0-4.5); HEMATOCRIT 25.8 % (32.4-45.2); LYMPH % 19.3 % (8-40); MCH 27.5 pg (25.7-33.7); MCHC 31.1 g/dl (32.0-36.0); MEAN CELL VOLUME 88.6 fl (80-96); MEAN PLT VOLUME 7.6 fl (7.5-11.1); MONO % 11.9 % (3.8-10.2); NEUT % 63.7 % (42.8-82.8); PLATELET COUNT 303 10^3/uL (134-434); RBC 2.92 M/mm3 (3.60-5.2); RDW 16.7 % (11.6-15.6); WHITE BLOOD COUNT 4.3 K/mm3 (4.0-10.0)
[2021-09-23 10:15] LABS: ALBUMIN 2.5 g/dl (3.4-5.0); BLOOD UREA NITROGEN 34.1 mg/dL (7-18); CALCIUM 8.3 mg/dL (8.5-10.1); MAGNESIUM 2.1 mg/dL (1.8-2.4)
[2021-09-23 10:18] LABS: CREATININE 1.2 mg/dL (0.55-1.3)
[2021-09-23 10:20] LABS: BILIRUBIN,TOTAL 0.2 mg/dL (0.2-1); TOT PROT 5.7 g/dl (6.4-8.2)
[2021-09-23] MEDS ORDERED: INSULIN (NOVOLOG) ASPART 100 UNITS/ML 10ML VIAL ONE (12:55)
[2021-09-23] MEDS ORDERED: cefTRIAXone SODIUM 1 GM VIAL ONE (21:02)
[2021-09-23] MEDS ORDERED: DEXTROSE 5%-WATER - 50 ML IVPB ONE (21:02)
[2021-09-23] MEDS: ATORVASTATIN CA 40 MG TABLET (FP) PO SCH (22:36)
[2021-09-23] MEDS: CEFTRIAXONE 1 GM in DEXTROSE 5%-WATER - 50 ML IVPB SCH (22:36)
[2021-09-23] MEDS: AZITHROMYCIN IVPB 500 MG/250 ML BAG IVPB SCH (22:53)
[2021-09-24] MEDS: HEPARIN NA (PORCINE) 5,000 UNITS/ML 1ML VIAL SQ SCH ×3 (05:40→21:34)
[2021-09-24] MEDS: INSULIN (LEVEMIR) 100 UNITS/ML UNITS SQ SCH ×2 (06:12→21:33)
[2021-09-24] MEDS: INSULIN SLIDING SCALE (NOVOLOG) 1 VIAL SQ SCH ×4 (06:12→21:31)
[2021-09-24 09:05] LABS: BASO % 0.6 % (0-2.0); EOS % 4.5 % (0-4.5); HEMATOCRIT 26.4 % (32.4-45.2); HEMOGLOBIN 8.3 GM/dL (10.7-15.3); LYMPH % 17.7 % (8-40); MCH 27.9 pg (25.7-33.7); MCHC 31.5 g/dl (32.0-36.0); MEAN CELL VOLUME 88.5 fl (80-96); MEAN PLT VOLUME 7.6 fl (7.5-11.1); NEUT % 65.2 % (42.8-82.8); PLATELET COUNT 332 10^3/uL (134-434); RBC 2.98 M/mm3 (3.60-5.2); RDW 16.2 % (11.6-15.6); WHITE BLOOD COUNT 3.9 K/mm3 (4.0-10.0)
[2021-09-24 09:25] LABS: ALBUMIN 2.6 g/dl (3.4-5.0); CALCIUM 8.6 mg/dL (8.5-10.1); MAGNESIUM 2.1 mg/dL (1.8-2.4)
[2021-09-24 09:26] LABS: BLOOD UREA NITROGEN 29.9 mg/dL (7-18)
[2021-09-24 09:30] LABS: BILIRUBIN,TOTAL 0.2 mg/dL (0.2-1); TOT PROT 5.9 g/dl (6.4-8.2)
[2021-09-24] MEDS: metoPROLOL SUCCINATE 25 MG TAB.SR.24H (FP) PO SCH (09:44)
[2021-09-24] MEDS: TAMSULOSIN HCL 0.4 MG CAP PO SCH (09:44)
[2021-09-24] MEDS: SODIUM ZIRCONIUM CYCLOSILICATE (LOKELMA) 5 GM PACKET PO SCH (09:44)
[2021-09-24] MEDS: MONTELUKAST NA 10 MG TABLET PO SCH (09:44)
[2021-09-24] MEDS: ANASTROZOLE 1 MG TABLET PO SCH (09:44)
[2021-09-24] MEDS: POLYETHYLENE GLYCOL (HEALTHYLAX) 3350 17 GM PACKET PO SCH ×2 (09:45→21:35)
[2021-09-24] MEDS: BUDESONIDE/FORMETEROL FUMARATE 80/4.5 mcg INHALER IH SCH ×2 (09:45→21:38)
[2021-09-24] MEDS: FUROSEMIDE 40 MG TABLET (FP) PO SCH (09:45)
[2021-09-24] MEDS: ISOSORBIDE MONONITRATE 30 MG TAB.SR.24H (FP) PO SCH (09:45)
[2021-09-24] MEDS ORDERED: cefTRIAXone SODIUM 1 GM VIAL ONE (21:01)
[2021-09-24] MEDS ORDERED: DEXTROSE 5%-WATER - 50 ML IVPB ONE (21:02)
[2021-09-24] MEDS: ATORVASTATIN CA 40 MG TABLET (FP) PO SCH (21:33)
[2021-09-24] MEDS: CEFTRIAXONE 1 GM in DEXTROSE 5%-WATER - 50 ML IVPB SCH (21:35)
[2021-09-24] MEDS: AZITHROMYCIN IVPB 500 MG/250 ML BAG IVPB SCH (21:36)
[2021-09-25] MEDS: HEPARIN NA (PORCINE) 5,000 UNITS/ML 1ML VIAL SQ SCH ×3 (06:18→22:00)
[2021-09-25] MEDS: INSULIN (LEVEMIR) 100 UNITS/ML UNITS SQ SCH ×2 (06:21→22:13)
[2021-09-25] MEDS: INSULIN SLIDING SCALE (NOVOLOG) 1 VIAL SQ SCH ×4 (06:22→22:14)
[2021-09-25] MEDS ORDERED: DEXTROSE 50%-WATER - 25 GM/50 ML VIAL IVPUSH ONE (06:28)
[2021-09-25 09:18] LABS: BASO % 0.8 % (0-2.0); EOS % 3.3 % (0-4.5); HEMATOCRIT 25.2 % (32.4-45.2); HEMOGLOBIN 8.2 GM/dL (10.7-15.3); LYMPH % 18.5 % (8-40); MCH 28.6 pg (25.7-33.7); MCHC 32.4 g/dl (32.0-36.0); MEAN CELL VOLUME 88.5 fl (80-96); MEAN PLT VOLUME 7.6 fl (7.5-11.1); MONO % 13.1 % (3.8-10.2); NEUT % 64.3 % (42.8-82.8); PLATELET COUNT 319 10^3/uL (134-434); RBC 2.85 M/mm3 (3.60-5.2); RDW 16.5 % (11.6-15.6); WHITE BLOOD COUNT 3.8 K/mm3 (4.0-10.0)
[2021-09-25 09:56] LABS: ALBUMIN 2.4 g/dl (3.4-5.0); BLOOD UREA NITROGEN 28.2 mg/dL (7-18); CALCIUM 8.4 mg/dL (8.5-10.1); MAGNESIUM 1.8 mg/dL (1.8-2.4)
[2021-09-25 09:59] LABS: TOT PROT 5.8 g/dl (6.4-8.2)
[2021-09-25 10:00] LABS: BILIRUBIN,TOTAL 0.2 mg/dL (0.2-1)
[2021-09-25] MEDS: ISOSORBIDE MONONITRATE 30 MG TAB.SR.24H (FP) PO SCH (10:57)
[2021-09-25] MEDS: TAMSULOSIN HCL 0.4 MG CAP PO SCH (10:58)
[2021-09-25] MEDS: FUROSEMIDE 40 MG TABLET (FP) PO SCH (10:58)
[2021-09-25] MEDS: MONTELUKAST NA 10 MG TABLET PO SCH (10:58)
[2021-09-25] MEDS: metoPROLOL SUCCINATE 25 MG TAB.SR.24H (FP) PO SCH (10:59)
[2021-09-25] MEDS: PANTOPRAZOLE 40 MG TABLET PO SCH (10:59)
[2021-09-25] MEDS: BUDESONIDE/FORMETEROL FUMARATE 80/4.5 mcg INHALER IH SCH ×2 (11:00→22:18)
[2021-09-25] MEDS: SODIUM ZIRCONIUM CYCLOSILICATE (LOKELMA) 5 GM PACKET PO SCH (11:01)
[2021-09-25] MEDS: POLYETHYLENE GLYCOL (HEALTHYLAX) 3350 17 GM PACKET PO SCH ×2 (11:01→21:58)
[2021-09-25] MEDS: ANASTROZOLE 1 MG TABLET PO SCH (11:12)
[2021-09-25] MEDS ORDERED: INSULIN (NOVOLOG) ASPART 100 UNITS/ML 10ML VIAL ONE ×2 (17:13→17:53)
[2021-09-25] MEDS ORDERED: cefTRIAXone SODIUM 1 GM VIAL ONE ×2 (21:35→21:39)
[2021-09-25] MEDS ORDERED: DEXTROSE 5%-WATER - 50 ML IVPB ONE ×2 (21:36→21:39)
[2021-09-25] MEDS: ATORVASTATIN CA 40 MG TABLET (FP) PO SCH (22:00)
[2021-09-25] MEDS: CEFTRIAXONE 1 GM in DEXTROSE 5%-WATER - 50 ML IVPB SCH (22:17)
[2021-09-25] MEDS: AZITHROMYCIN IVPB 500 MG/250 ML BAG IVPB SCH (22:26)
[2021-09-26] MEDS: HEPARIN NA (PORCINE) 5,000 UNITS/ML 1ML VIAL SQ SCH ×3 (06:31→21:19)
[2021-09-26] MEDS: INSULIN SLIDING SCALE (NOVOLOG) 1 VIAL SQ SCH ×4 (06:34→22:02)
[2021-09-26] MEDS: INSULIN (LEVEMIR) 100 UNITS/ML UNITS SQ SCH ×2 (07:05→21:20)
[2021-09-26 08:54] LABS: EOS % 4.5 % (0-4.5); HEMOGLOBIN 9.1 GM/dL (10.7-15.3); LYMPH % 17.6 % (8-40); MCH 28.2 pg (25.7-33.7); MCHC 32.4 g/dl (32.0-36.0); MEAN CELL VOLUME 87.2 fl (80-96); MEAN PLT VOLUME 7.4 fl (7.5-11.1); MONO % 9.7 % (3.8-10.2); NEUT % 67.2 % (42.8-82.8); PLATELET COUNT 380 10^3/uL (134-434); RBC 3.21 M/mm3 (3.60-5.2); RDW 16.8 % (11.6-15.6); WHITE BLOOD COUNT 4.7 K/mm3 (4.0-10.0)
[2021-09-26 09:32] LABS: BLOOD UREA NITROGEN 27.2 mg/dL (7-18)
[2021-09-26 09:34] LABS: CREATININE 0.9 mg/dL (0.55-1.3)
[2021-09-26] MEDS: metoPROLOL SUCCINATE 25 MG TAB.SR.24H (FP) PO SCH (10:46)
[2021-09-26] MEDS: MONTELUKAST NA 10 MG TABLET PO SCH (10:46)
[2021-09-26] MEDS: TAMSULOSIN HCL 0.4 MG CAP PO SCH (10:46)
[2021-09-26] MEDS: ISOSORBIDE MONONITRATE 30 MG TAB.SR.24H (FP) PO SCH (10:47)
[2021-09-26] MEDS: PANTOPRAZOLE 40 MG TABLET PO SCH (10:47)
[2021-09-26] MEDS: FUROSEMIDE 40 MG TABLET (FP) PO SCH (10:47)
[2021-09-26] MEDS: ANASTROZOLE 1 MG TABLET PO SCH (10:48)
[2021-09-26] MEDS: BUDESONIDE/FORMETEROL FUMARATE 80/4.5 mcg INHALER IH SCH ×2 (10:50→21:18)
[2021-09-26] MEDS: POLYETHYLENE GLYCOL (HEALTHYLAX) 3350 17 GM PACKET PO SCH ×2 (10:52→21:19)
[2021-09-26] MEDS: methylPREDNISolone NA SUCC 40 MG/1 ML VIAL IVPUSH SCH ×2 (11:11→18:32)
[2021-09-26] MEDS ORDERED: IRON SUCROSE INJECTION 100 MG in SODIUM CHLORIDE 95 ML IVPB ONE (13:00)
[2021-09-26] MEDS: SODIUM ZIRCONIUM CYCLOSILICATE (LOKELMA) 5 GM PACKET PO SCH (14:12)
[2021-09-26] MEDS ORDERED: cefTRIAXone SODIUM 1 GM VIAL ONE (20:41)
[2021-09-26] MEDS ORDERED: DEXTROSE 5%-WATER - 50 ML IVPB ONE (20:42)
[2021-09-26] MEDS ORDERED: ALBUTEROL SO4 0.083% IH SOL 2.5 MG/3 ML VIAL.NEB. NEB PRN (21:08)
[2021-09-26] MEDS: CEFTRIAXONE 1 GM in DEXTROSE 5%-WATER - 50 ML IVPB SCH (21:19)
[2021-09-26] MEDS: ATORVASTATIN CA 40 MG TABLET (FP) PO SCH (21:20)
[2021-09-27] MEDS: methylPREDNISolone NA SUCC 40 MG/1 ML VIAL IVPUSH SCH ×3 (01:38→17:24)
[2021-09-27] MEDS: HEPARIN NA (PORCINE) 5,000 UNITS/ML 1ML VIAL SQ SCH ×3 (05:54→21:12)
[2021-09-27] MEDS: INSULIN SLIDING SCALE (NOVOLOG) 1 VIAL SQ SCH ×4 (06:02→21:15)
[2021-09-27] MEDS: INSULIN (LEVEMIR) 100 UNITS/ML UNITS SQ SCH ×2 (06:02→21:12)
[2021-09-27] MEDS ORDERED: INSULIN (LEVEMIR) 100 UNITS/ML UNITS SQ ONE (06:59)
[2021-09-27] MEDS ORDERED: INSULIN (NOVOLOG) ASPART 100 UNITS/ML 10ML VIAL ONE ×2 (06:59→12:17)
[2021-09-27] MEDS: TAMSULOSIN HCL 0.4 MG CAP PO SCH (08:57)
[2021-09-27] MEDS: SODIUM ZIRCONIUM CYCLOSILICATE (LOKELMA) 5 GM PACKET PO SCH (09:03)
[2021-09-27] MEDS: PANTOPRAZOLE 40 MG TABLET PO SCH (09:03)
[2021-09-27] MEDS: FUROSEMIDE 40 MG TABLET (FP) PO SCH (09:04)
[2021-09-27] MEDS: ANASTROZOLE 1 MG TABLET PO SCH (09:04)
[2021-09-27] MEDS: BUDESONIDE/FORMETEROL FUMARATE 80/4.5 mcg INHALER IH SCH ×2 (09:04→21:12)
[2021-09-27] MEDS: metoPROLOL SUCCINATE 25 MG TAB.SR.24H (FP) PO SCH (09:04)
[2021-09-27] MEDS: ISOSORBIDE MONONITRATE 30 MG TAB.SR.24H (FP) PO SCH (09:04)
[2021-09-27] MEDS: MONTELUKAST NA 10 MG TABLET PO SCH (09:04)
[2021-09-27] MEDS: POLYETHYLENE GLYCOL (HEALTHYLAX) 3350 17 GM PACKET PO SCH ×2 (09:04→21:12)
[2021-09-27] MEDS ORDERED: DEXTROSE 5%-WATER - 50 ML IVPB ONE (20:59)
[2021-09-27] MEDS ORDERED: cefTRIAXone SODIUM 1 GM VIAL ONE (20:59)
[2021-09-27] MEDS: CEFTRIAXONE 1 GM in DEXTROSE 5%-WATER - 50 ML IVPB SCH (21:11)
[2021-09-27] MEDS: ATORVASTATIN CA 40 MG TABLET (FP) PO SCH (21:12)
[2021-09-27] MEDS: MELATONIN 5 MG TABLETS PO PRN (22:48)
[2021-09-28] MEDS: methylPREDNISolone NA SUCC 40 MG/1 ML VIAL IVPUSH SCH ×2 (02:47→09:20)
[2021-09-28] MEDS: INSULIN (LEVEMIR) 100 UNITS/ML UNITS SQ SCH ×2 (06:40→21:20)
[2021-09-28] MEDS: INSULIN SLIDING SCALE (NOVOLOG) 1 VIAL SQ SCH ×4 (06:41→21:19)
[2021-09-28] MEDS: PANTOPRAZOLE 40 MG TABLET PO SCH (09:20)
[2021-09-28] MEDS: FUROSEMIDE 40 MG TABLET (FP) PO SCH (09:20)
[2021-09-28] MEDS: metoPROLOL SUCCINATE 25 MG TAB.SR.24H (FP) PO SCH (09:20)
[2021-09-28] MEDS: TAMSULOSIN HCL 0.4 MG CAP PO SCH (09:20)
[2021-09-28] MEDS: ISOSORBIDE MONONITRATE 30 MG TAB.SR.24H (FP) PO SCH (09:21)
[2021-09-28] MEDS: POLYETHYLENE GLYCOL (HEALTHYLAX) 3350 17 GM PACKET PO SCH ×2 (09:22→21:22)
[2021-09-28] MEDS: ANASTROZOLE 1 MG TABLET PO SCH (09:25)
[2021-09-28] MEDS: BUDESONIDE/FORMETEROL FUMARATE 80/4.5 mcg INHALER IH SCH ×2 (09:26→21:15)
[2021-09-28] MEDS: MONTELUKAST NA 10 MG TABLET PO SCH (09:29)
[2021-09-28 12:08] LABS: SARS-CoV-2 NAA Not Detected (Not Detected)
[2021-09-28 14:50] VITALS: BMI 24.1
[2021-09-28] MEDS: SODIUM ZIRCONIUM CYCLOSILICATE (LOKELMA) 5 GM PACKET PO SCH (15:57)
[2021-09-28] MEDS: AMOX TR/POT CLAV 500MG/125MG TABLETS (FP) PO SCH (16:58)
[2021-09-28] MEDS: ATORVASTATIN CA 40 MG TABLET (FP) PO SCH (21:15)
[2021-09-28] MEDS: MELATONIN 5 MG TABLETS PO PRN (21:15)
[2021-09-29] MEDS: INSULIN (LEVEMIR) 100 UNITS/ML UNITS SQ SCH ×2 (06:18→21:01)
[2021-09-29] MEDS: INSULIN SLIDING SCALE (NOVOLOG) 1 VIAL SQ SCH ×4 (06:21→21:00)
[2021-09-29] MEDS: TAMSULOSIN HCL 0.4 MG CAP PO SCH (08:41)
[2021-09-29] MEDS: AMOX TR/POT CLAV 500MG/125MG TABLETS (FP) PO SCH ×2 (08:41→17:37)
[2021-09-29 09:04] LABS: BASO % 0.7 % (0-2.0); EOS % 1.5 % (0-4.5); HEMATOCRIT 27.4 % (32.4-45.2); LYMPH % 19.5 % (8-40); MCH 28.5 pg (25.7-33.7); MCHC 32.7 g/dl (32.0-36.0); MEAN CELL VOLUME 87.2 fl (80-96); MEAN PLT VOLUME 7.7 fl (7.5-11.1); MONO % 12.3 % (3.8-10.2); PLATELET COUNT 374 10^3/uL (134-434); RBC 3.15 M/mm3 (3.60-5.2); RDW 16.1 % (11.6-15.6); WHITE BLOOD COUNT 5.5 K/mm3 (4.0-10.0)
[2021-09-29 09:18] LABS: ALBUMIN 2.6 g/dl (3.4-5.0); CALCIUM 8.6 mg/dL (8.5-10.1)
[2021-09-29] MEDS: ISOSORBIDE MONONITRATE 30 MG TAB.SR.24H (FP) PO SCH (09:18)
[2021-09-29] MEDS: POLYETHYLENE GLYCOL (HEALTHYLAX) 3350 17 GM PACKET PO SCH ×3 (09:18→21:01)
[2021-09-29] MEDS: ANASTROZOLE 1 MG TABLET PO SCH (09:18)
[2021-09-29] MEDS: PANTOPRAZOLE 40 MG TABLET PO SCH (09:19)
[2021-09-29] MEDS: MONTELUKAST NA 10 MG TABLET PO SCH (09:19)
[2021-09-29] MEDS: SODIUM ZIRCONIUM CYCLOSILICATE (LOKELMA) 5 GM PACKET PO SCH (09:19)
[2021-09-29] MEDS: FUROSEMIDE 40 MG TABLET (FP) PO SCH (09:19)
[2021-09-29] MEDS: methylPREDNISolone NA SUCC 40 MG/1 ML VIAL IVPUSH SCH (09:20)
[2021-09-29] MEDS: BUDESONIDE/FORMETEROL FUMARATE 80/4.5 mcg INHALER IH SCH ×2 (09:20→21:02)
[2021-09-29] MEDS: metoPROLOL SUCCINATE 25 MG TAB.SR.24H (FP) PO SCH (09:20)
[2021-09-29 09:21] LABS: CREATININE 1.2 mg/dL (0.55-1.3)
[2021-09-29 09:23] LABS: BILIRUBIN,TOTAL 0.2 mg/dL (0.2-1)
[2021-09-29 09:25] LABS: BLOOD UREA NITROGEN 54.2 mg/dL (7-18)
[2021-09-29] MEDS ORDERED: INSULIN (NOVOLOG) ASPART 100 UNITS/ML 10ML VIAL ONE (16:51)
[2021-09-29] MEDS: ATORVASTATIN CA 40 MG TABLET (FP) PO SCH (21:01)
[2021-09-29] MEDS: MELATONIN 5 MG TABLETS PO PRN (21:01)
[2021-09-30] MEDS: INSULIN SLIDING SCALE (NOVOLOG) 1 VIAL SQ SCH ×4 (06:16→21:21)
[2021-09-30] MEDS: INSULIN (LEVEMIR) 100 UNITS/ML UNITS SQ SCH ×2 (06:16→21:21)
[2021-09-30] MEDS: AMOX TR/POT CLAV 500MG/125MG TABLETS (FP) PO SCH (09:35)
[2021-09-30] MEDS: ISOSORBIDE MONONITRATE 30 MG TAB.SR.24H (FP) PO SCH (09:35)
[2021-09-30] MEDS: metoPROLOL SUCCINATE 25 MG TAB.SR.24H (FP) PO SCH (09:35)
[2021-09-30] MEDS: MONTELUKAST NA 10 MG TABLET PO SCH (09:35)
[2021-09-30] MEDS: PANTOPRAZOLE 40 MG TABLET PO SCH (09:35)
[2021-09-30] MEDS: TAMSULOSIN HCL 0.4 MG CAP PO SCH (09:35)
[2021-09-30] MEDS: ANASTROZOLE 1 MG TABLET PO SCH (09:35)
[2021-09-30] MEDS: methylPREDNISolone NA SUCC 40 MG/1 ML VIAL IVPUSH SCH (09:36)
[2021-09-30] MEDS: POLYETHYLENE GLYCOL (HEALTHYLAX) 3350 17 GM PACKET PO SCH ×2 (09:36→21:21)
[2021-09-30] MEDS: BUDESONIDE/FORMETEROL FUMARATE 80/4.5 mcg INHALER IH SCH ×2 (09:36→21:22)
[2021-09-30] MEDS: FUROSEMIDE 40 MG TABLET (FP) PO SCH (09:36)
[2021-09-30] MEDS: SODIUM ZIRCONIUM CYCLOSILICATE (LOKELMA) 5 GM PACKET PO SCH (09:36)
[2021-09-30] MEDS ORDERED: INSULIN (NOVOLOG) ASPART 100 UNITS/ML 10ML VIAL ONE (11:04)
[2021-09-30 13:16] LABS: ALBUMIN 2.8 g/dl (3.4-5.0); CALCIUM 8.5 mg/dL (8.5-10.1)
[2021-09-30 13:17] LABS: BLOOD UREA NITROGEN 52.6 mg/dL (7-18); MAGNESIUM 1.9 mg/dL (1.8-2.4)
[2021-09-30 13:20] LABS: CREATININE 1.6 mg/dL (0.55-1.3)
[2021-09-30 13:21] LABS: BILIRUBIN,TOTAL 0.6 mg/dL (0.2-1); TOT PROT 6.4 g/dl (6.4-8.2)
[2021-09-30 13:25] LABS: BASO % 0.3 % (0-2.0); EOS % 0.6 % (0-4.5); HEMATOCRIT 28.2 % (32.4-45.2); LYMPH % 10.2 % (8-40); MCHC 31.8 g/dl (32.0-36.0); MEAN CELL VOLUME 87.8 fl (80-96); MEAN PLT VOLUME 7.7 fl (7.5-11.1); MONO % 5.2 % (3.8-10.2); NEUT % 83.7 % (42.8-82.8); PLATELET COUNT 387 10^3/uL (134-434); RBC 3.21 M/mm3 (3.60-5.2); RDW 16.4 % (11.6-15.6); WHITE BLOOD COUNT 5.6 K/mm3 (4.0-10.0)
[2021-09-30] MEDS: ATORVASTATIN CA 40 MG TABLET (FP) PO SCH (21:21)
[2021-09-30] MEDS: MELATONIN 5 MG TABLETS PO PRN (21:21)
[2021-10-01] MEDS: INSULIN (LEVEMIR) 100 UNITS/ML UNITS SQ SCH ×2 (06:32→21:46)
[2021-10-01] MEDS: INSULIN SLIDING SCALE (NOVOLOG) 1 VIAL SQ SCH ×4 (06:32→21:45)
[2021-10-01 09:43] LABS: HEMATOCRIT 27.9 % (32.4-45.2); HEMOGLOBIN 9.1 GM/dL (10.7-15.3); MCH 28.9 pg (25.7-33.7); MCHC 32.7 g/dl (32.0-36.0); MEAN CELL VOLUME 88.5 fl (80-96); MEAN PLT VOLUME 7.8 fl (7.5-11.1); PLATELET COUNT 371 10^3/uL (134-434); RBC 3.15 M/mm3 (3.60-5.2); RDW 16.4 % (11.6-15.6); WHITE BLOOD COUNT 6.4 K/mm3 (4.0-10.0)
[2021-10-01] MEDS: PANTOPRAZOLE 40 MG TABLET PO SCH (09:59)
[2021-10-01] MEDS: metoPROLOL SUCCINATE 25 MG TAB.SR.24H (FP) PO SCH (09:59)
[2021-10-01] MEDS: predniSONE 20 MG TABLET (UD) PO SCH (09:59)
[2021-10-01] MEDS: MONTELUKAST NA 10 MG TABLET PO SCH (09:59)
[2021-10-01] MEDS: ISOSORBIDE MONONITRATE 30 MG TAB.SR.24H (FP) PO SCH (09:59)
[2021-10-01] MEDS: POLYETHYLENE GLYCOL (HEALTHYLAX) 3350 17 GM PACKET PO SCH ×3 (09:59→21:44)
[2021-10-01] MEDS: SODIUM ZIRCONIUM CYCLOSILICATE (LOKELMA) 5 GM PACKET PO SCH ×2 (09:59→10:07)
[2021-10-01 10:00] LABS: CALCIUM 8.8 mg/dL (8.5-10.1)
[2021-10-01] MEDS: FUROSEMIDE 40 MG TABLET (FP) PO SCH (10:00)
[2021-10-01] MEDS: ANASTROZOLE 1 MG TABLET PO SCH (10:00)
[2021-10-01] MEDS: BUDESONIDE/FORMETEROL FUMARATE 80/4.5 mcg INHALER IH SCH ×2 (10:00→21:49)
[2021-10-01] MEDS: TAMSULOSIN HCL 0.4 MG CAP PO SCH (10:00)
[2021-10-01 10:01] LABS: ALBUMIN 2.8 g/dl (3.4-5.0); BLOOD UREA NITROGEN 58.6 mg/dL (7-18)
[2021-10-01 10:04] LABS: BILIRUBIN,TOTAL 0.2 mg/dL (0.2-1); CREATININE 1.4 mg/dL (0.55-1.3); TOT PROT 6.1 g/dl (6.4-8.2)
[2021-10-01 11:25] LABS: ANISOCYTOSIS 0; HELMET CELLS 0; HOWELL-JOLLY BODIES 0; MACROCYTOSIS 0; OVALOCYTE 0; ROULEAU 0; SICKELED CELLS 0; TARGET CELLS 0; TEAR DROP CELLS 0; TOXIC GRANULATION 0
[2021-10-01] MEDS ORDERED: INSULIN (NOVOLOG) ASPART 100 UNITS/ML 10ML VIAL ONE (11:45)
[2021-10-01] MEDS: ATORVASTATIN CA 40 MG TABLET (FP) PO SCH (21:43)
[2021-10-01] MEDS: MELATONIN 5 MG TABLETS PO PRN (21:43)
[2021-10-02] MEDS: INSULIN SLIDING SCALE (NOVOLOG) 1 VIAL SQ SCH (06:01)
[2021-10-02] MEDS: INSULIN (LEVEMIR) 100 UNITS/ML UNITS SQ SCH (06:15)
[2021-10-02 07:29] VITALS: BP 162/60; PULSE 75; TEMP 97.5
[2021-10-02] MEDS: ANASTROZOLE 1 MG TABLET PO SCH (09:34)
[2021-10-02] MEDS: predniSONE 20 MG TABLET (UD) PO SCH (09:34)
[2021-10-02] MEDS: metoPROLOL SUCCINATE 25 MG TAB.SR.24H (FP) PO SCH (09:35)
[2021-10-02] MEDS: POLYETHYLENE GLYCOL (HEALTHYLAX) 3350 17 GM PACKET PO SCH (09:35)
[2021-10-02] MEDS: ISOSORBIDE MONONITRATE 30 MG TAB.SR.24H (FP) PO SCH (09:35)
[2021-10-02] MEDS: TAMSULOSIN HCL 0.4 MG CAP PO SCH (09:35)
[2021-10-02] MEDS: SODIUM ZIRCONIUM CYCLOSILICATE (LOKELMA) 5 GM PACKET PO SCH (09:35)
[2021-10-02] MEDS: MONTELUKAST NA 10 MG TABLET PO SCH (09:35)
[2021-10-02] MEDS: FUROSEMIDE 40 MG TABLET (FP) PO SCH ×2 (09:35→09:37)
[2021-10-02] MEDS: BUDESONIDE/FORMETEROL FUMARATE 80/4.5 mcg INHALER IH SCH (09:36)
== END 2021-10-02 12:13 | disposition home health service (06) | DRG 194 ==
LOC: JER 19:37 → JERBED 09-21 00:45 → J8W 09-21 09:04
PROVIDERS: ADMIT Internal Medicine; ATTEND Nurse Practitioner Acute Care
DX: J18.9 Pneumonia, unspecified organism (principal); J44.0 Chronic obstructive pulmonary disease with (acute) lower respiratory infection; I13.0 Hypertensive heart and chronic kidney disease with heart failure and stage 1 through stage 4 chronic kidney disease, or unspecified chronic kidney disease; J96.11 Chronic respiratory failure with hypoxia; K56.49 Other impaction of intestine; N17.9 Acute kidney failure, unspecified; N39.0 Urinary tract infection, site not specified; M48.50XA Collapsed vertebra, not elsewhere classified, site unspecified, initial encounter for fracture; I69.354 Hemiplegia and hemiparesis following cerebral infarction affecting left non-dominant side; E11.22 Type 2 diabetes mellitus with diabetic chronic kidney disease; J44.9 Chronic obstructive pulmonary disease, unspecified; N18.30 Chronic kidney disease, stage 3 unspecified; D64.9 Anemia, unspecified; I25.10 Atherosclerotic heart disease of native coronary artery without angina pectoris; E78.5 Hyperlipidemia, unspecified; Z99.81 Dependence on supplemental oxygen
CPT/HCPCS: 36415; 71045-TC-FY; 71046-TC-FY; 74176-TC; 80048; 80053; 81003; 82550; 82728; 82962; 83036; 83540; 83550; 83605; 83690; 83735; 84100; 84484; 85025; 87040; 87086; 87899; 93005; 93010; 97116-GP; 97161-GP; 99285-25; C9803; J1644; J1756; U0003; U0005

== ENCOUNTER 2022-01-03 17:25 | Observation (INO) | payer OTHER ==
[2022-01-03] MEDS ORDERED: ACETAMINOPHEN 1000 MG/100 ML BAG IVPB ONE (18:27)
[2022-01-03] MEDS ORDERED: ACETAMINOPHEN INJECTION 100 ML IVPB ONE (18:57)
[2022-01-03 19:55] LABS: BASO % 0.5 % (0-2.0); EOS % 2.1 % (0-4.5); HEMATOCRIT 33.1 % (32.4-45.2); HEMOGLOBIN 10.6 GM/dL (10.7-15.3); LYMPH % 19.5 % (8-40); MCH 28.2 pg (25.7-33.7); MCHC 31.9 g/dl (32.0-36.0); MEAN CELL VOLUME 88.4 fl (80-96); MEAN PLT VOLUME 7.6 fl (7.5-11.1); MONO % 7.3 % (3.8-10.2); NEUT % 70.6 % (42.8-82.8); PLATELET COUNT 303 10^3/uL (134-434); RBC 3.75 M/mm3 (3.60-5.2); RDW 16.5 % (11.6-15.6); WHITE BLOOD COUNT 6.3 K/mm3 (4.0-10.0)
[2022-01-03 20:02] LABS: INR 0.97 (0.83-1.09); PROTHROMBIN TIME (PATIENT) 11.2 SEC (9.7-13.0)
[2022-01-03 20:04] LABS: ACTIVATED PTT 31.4 SECONDS (25.2-36.5)
[2022-01-03 20:17] LABS: ALBUMIN 3.6 g/dl (3.4-5.0); CALCIUM 9.4 mg/dL (8.5-10.1); MAGNESIUM 1.8 mg/dL (1.8-2.4)
[2022-01-03 20:21] LABS: TOT PROT 6.7 g/dl (6.4-8.2)
[2022-01-03 20:22] LABS: BILIRUBIN,TOTAL 0.4 mg/dL (0.2-1)
[2022-01-03 20:47] LABS: EPI CELLS 6 /uL (0-25.1); HYALINE CASTS 1 /uL (0-3.1); URINE APPEARANCE CLEAR; URINE BACTERIA 7 /uL (0-1359); URINE BILIRUBIN NEGATIVE (NEGATIVE); URINE COLOR YELLOW; URINE GLUCOSE (UA) NEGATIVE (NEGATIVE); URINE KETONE NEGATIVE (NEGATIVE); URINE LEUK ESTERASE NEGATIVE (NEGATIVE); URINE NITRITE NEGATIVE (NEGATIVE); URINE PROTEIN 3+ (NEGATIVE); URINE RBC 12 /uL (0-23.9); URINE UROBILINOGEN 0.2 mg/dL (0.2-1.0); URINE WBC 2 /uL (0-25.8)
[2022-01-04] MEDS ORDERED: SODIUM PHOSPHATE/NA BIPHOS 133 ML ENEMA PR ONE (01:03)
[2022-01-04] MEDS ORDERED: MAGNESIUM CITRATE 300 ML BOTTLE PO ONE (01:04)
[2022-01-04] MEDS ORDERED: MAGNESIUM CITRATE 300 ML BOTTLE ONE (01:11)
[2022-01-04] MEDS ORDERED: SODIUM CHLORIDE 1,000 ML IV SCH (02:00)
[2022-01-04 05:45] VITALS: BMI 25.8
[2022-01-04 09:52] LABS: BASO % 0.7 % (0-2.0); EOS % 1.6 % (0-4.5); HEMATOCRIT 32.1 % (32.4-45.2); HEMOGLOBIN 10.2 GM/dL (10.7-15.3); LYMPH % 18.3 % (8-40); MCH 28.2 pg (25.7-33.7); MCHC 31.8 g/dl (32.0-36.0); MEAN CELL VOLUME 88.6 fl (80-96); MEAN PLT VOLUME 7.8 fl (7.5-11.1); MONO % 6.6 % (3.8-10.2); NEUT % 72.8 % (42.8-82.8); PLATELET COUNT 288 10^3/uL (134-434); RBC 3.62 M/mm3 (3.60-5.2); RDW 15.9 % (11.6-15.6); WHITE BLOOD COUNT 5.8 K/mm3 (4.0-10.0)
[2022-01-04] MEDS: ENOXAPARIN NA (PORCINE) 40 MG/0.4 ML DISP.SYRIN SQ SCH (09:58)
[2022-01-04] MEDS ORDERED: SENNOSIDES 8.6MG TABLET (FP) PO SCH (10:00)
[2022-01-04] MEDS ORDERED: POLYETHYLENE GLYCOL (HEALTHYLAX) 3350 17 GM PACKET PO SCH (10:00)
[2022-01-04] MEDS ORDERED: DOCUSATE SODIUM 100 MG CAPSULE (FP) PO SCH (10:00)
[2022-01-04 10:18] LABS: ALBUMIN 3.1 g/dl (3.4-5.0); BLOOD UREA NITROGEN 33.8 mg/dL (7-18)
[2022-01-04 10:21] LABS: CREATININE 0.9 mg/dL (0.55-1.3)
[2022-01-04 10:22] LABS: BILIRUBIN,TOTAL 0.8 mg/dL (0.2-1); TOT PROT 5.7 g/dl (6.4-8.2)
[2022-01-04] MEDS: POLYETHYLENE GLYCOL (HEALTHYLAX) 3350 17 GM PACKET PO SCH ×2 (13:48→21:53)
[2022-01-04] MEDS ORDERED: ALBUTEROL SO4 2.5/IPRATROPIUM 0.5 INH SOL 3 ML VIAL.NEB. NEB PRN (17:18)
[2022-01-04] MEDS: ATORVASTATIN CA 40 MG TABLET (FP) PO SCH (21:53)
[2022-01-04] MEDS: SODIUM CHLORIDE 1,000 ML IV SCH (22:02)
[2022-01-04] MEDS: INSULIN SLIDING SCALE (NOVOLOG) 1 VIAL SQ SCH (22:03)
[2022-01-05] MEDS: POLYETHYLENE GLYCOL (HEALTHYLAX) 3350 17 GM PACKET PO SCH ×3 (05:40→22:02)
[2022-01-05] MEDS: INSULIN SLIDING SCALE (NOVOLOG) 1 VIAL SQ SCH ×4 (06:03→22:02)
[2022-01-05] MEDS: FUROSEMIDE 40 MG TABLET (FP) PO SCH (10:33)
[2022-01-05] MEDS: ISOSORBIDE MONONITRATE 30 MG TAB.SR.24H (FP) PO SCH (10:33)
[2022-01-05] MEDS: metoPROLOL SUCCINATE 25 MG TAB.SR.24H (FP) PO SCH (10:33)
[2022-01-05] MEDS: ANASTROZOLE 1 MG TABLET PO SCH (10:33)
[2022-01-05] MEDS: ENOXAPARIN NA (PORCINE) 40 MG/0.4 ML DISP.SYRIN SQ SCH (10:33)
[2022-01-05 10:39] LABS: BASO % 0.4 % (0-2.0); EOS % 1.6 % (0-4.5); HEMATOCRIT 32.5 % (32.4-45.2); HEMOGLOBIN 10.7 GM/dL (10.7-15.3); LYMPH % 16.4 % (8-40); MCH 29.1 pg (25.7-33.7); MCHC 32.8 g/dl (32.0-36.0); MEAN CELL VOLUME 88.7 fl (80-96); MEAN PLT VOLUME 7.8 fl (7.5-11.1); MONO % 7.2 % (3.8-10.2); NEUT % 74.4 % (42.8-82.8); PLATELET COUNT 290 10^3/uL (134-434); RBC 3.66 M/mm3 (3.60-5.2); WHITE BLOOD COUNT 6.3 K/mm3 (4.0-10.0)
[2022-01-05 11:02] LABS: BLOOD UREA NITROGEN 25.3 mg/dL (7-18); CALCIUM 8.5 mg/dL (8.5-10.1)
[2022-01-05 11:05] LABS: CREATININE 0.9 mg/dL (0.55-1.3)
[2022-01-05 11:07] LABS: BILIRUBIN,TOTAL 0.6 mg/dL (0.2-1)
[2022-01-05] MEDS: SODIUM CHLORIDE 1,000 ML IV SCH (11:48)
[2022-01-05] MEDS: ATORVASTATIN CA 40 MG TABLET (FP) PO SCH (22:02)
[2022-01-06] MEDS: INSULIN SLIDING SCALE (NOVOLOG) 1 VIAL SQ SCH ×4 (07:13→22:19)
[2022-01-06] MEDS: POLYETHYLENE GLYCOL (HEALTHYLAX) 3350 17 GM PACKET PO SCH ×3 (07:14→22:15)
[2022-01-06 09:46] LABS: BASO % 0.5 % (0-2.0); EOS % 1.5 % (0-4.5); HEMATOCRIT 31.5 % (32.4-45.2); HEMOGLOBIN 10.1 GM/dL (10.7-15.3); LYMPH % 16.5 % (8-40); MCH 28.5 pg (25.7-33.7); MCHC 32.2 g/dl (32.0-36.0); MEAN CELL VOLUME 88.6 fl (80-96); MEAN PLT VOLUME 7.9 fl (7.5-11.1); MONO % 6.4 % (3.8-10.2); NEUT % 75.1 % (42.8-82.8); PLATELET COUNT 286 10^3/uL (134-434); RBC 3.55 M/mm3 (3.60-5.2); RDW 15.9 % (11.6-15.6); WHITE BLOOD COUNT 5.7 K/mm3 (4.0-10.0)
[2022-01-06] MEDS: ISOSORBIDE MONONITRATE 30 MG TAB.SR.24H (FP) PO SCH (09:52)
[2022-01-06] MEDS: FUROSEMIDE 40 MG TABLET (FP) PO SCH (09:52)
[2022-01-06] MEDS: metoPROLOL SUCCINATE 25 MG TAB.SR.24H (FP) PO SCH (09:52)
[2022-01-06] MEDS: ANASTROZOLE 1 MG TABLET PO SCH (09:52)
[2022-01-06] MEDS: ENOXAPARIN NA (PORCINE) 40 MG/0.4 ML DISP.SYRIN SQ SCH (09:52)
[2022-01-06 10:00] LABS: BLOOD UREA NITROGEN 26.9 mg/dL (7-18); CALCIUM 8.6 mg/dL (8.5-10.1); MAGNESIUM 1.6 mg/dL (1.8-2.4)
[2022-01-06 10:05] LABS: BILIRUBIN,TOTAL 0.5 mg/dL (0.2-1); TOT PROT 5.8 g/dl (6.4-8.2)
[2022-01-06] MEDS: SODIUM CHLORIDE 1,000 ML IV SCH (16:52)
[2022-01-06] MEDS: ATORVASTATIN CA 40 MG TABLET (FP) PO SCH (22:15)
[2022-01-07] MEDS: POLYETHYLENE GLYCOL (HEALTHYLAX) 3350 17 GM PACKET PO SCH ×3 (05:47→21:45)
[2022-01-07] MEDS: INSULIN SLIDING SCALE (NOVOLOG) 1 VIAL SQ SCH ×4 (05:59→21:46)
[2022-01-07] MEDS: FUROSEMIDE 40 MG TABLET (FP) PO SCH (09:51)
[2022-01-07] MEDS: ENOXAPARIN NA (PORCINE) 40 MG/0.4 ML DISP.SYRIN SQ SCH (09:51)
[2022-01-07] MEDS: ANASTROZOLE 1 MG TABLET PO SCH (09:51)
[2022-01-07] MEDS: metoPROLOL SUCCINATE 25 MG TAB.SR.24H (FP) PO SCH (09:51)
[2022-01-07] MEDS: ISOSORBIDE MONONITRATE 30 MG TAB.SR.24H (FP) PO SCH (09:51)
[2022-01-07 10:00] LABS: BASO % 0.6 % (0-2.0); EOS % 1.1 % (0-4.5); HEMATOCRIT 33.4 % (32.4-45.2); HEMOGLOBIN 10.7 GM/dL (10.7-15.3); LYMPH % 17.7 % (8-40); MCH 28.3 pg (25.7-33.7); MCHC 31.9 g/dl (32.0-36.0); MEAN CELL VOLUME 88.7 fl (80-96); NEUT % 72.6 % (42.8-82.8); PLATELET COUNT 289 10^3/uL (134-434); RBC 3.77 M/mm3 (3.60-5.2); RDW 15.7 % (11.6-15.6); WHITE BLOOD COUNT 6.1 K/mm3 (4.0-10.0)
[2022-01-07 10:24] LABS: CALCIUM 9.1 mg/dL (8.5-10.1)
[2022-01-07 10:25] LABS: ALBUMIN 3.2 g/dl (3.4-5.0); MAGNESIUM 1.6 mg/dL (1.8-2.4)
[2022-01-07 10:28] LABS: CREATININE 0.9 mg/dL (0.55-1.3)
[2022-01-07 10:29] LABS: BILIRUBIN,TOTAL 0.9 mg/dL (0.2-1); TOT PROT 6.3 g/dl (6.4-8.2)
[2022-01-07] MEDS: ATORVASTATIN CA 40 MG TABLET (FP) PO SCH (21:46)
[2022-01-08] MEDS: POLYETHYLENE GLYCOL (HEALTHYLAX) 3350 17 GM PACKET PO SCH ×3 (06:19→22:06)
[2022-01-08] MEDS: INSULIN SLIDING SCALE (NOVOLOG) 1 VIAL SQ SCH ×4 (06:24→22:07)
[2022-01-08] MEDS: ENOXAPARIN NA (PORCINE) 40 MG/0.4 ML DISP.SYRIN SQ SCH (11:25)
[2022-01-08] MEDS: ISOSORBIDE MONONITRATE 30 MG TAB.SR.24H (FP) PO SCH (11:26)
[2022-01-08] MEDS: ANASTROZOLE 1 MG TABLET PO SCH (11:26)
[2022-01-08] MEDS: FUROSEMIDE 40 MG TABLET (FP) PO SCH (11:26)
[2022-01-08] MEDS: metoPROLOL SUCCINATE 25 MG TAB.SR.24H (FP) PO SCH (11:26)
[2022-01-08] MEDS: ATORVASTATIN CA 40 MG TABLET (FP) PO SCH (22:07)
[2022-01-08] MEDS: BUDESONIDE/FORMETEROL FUMARATE 80/4.5 mcg INHALER IH SCH (22:12)
[2022-01-09] MEDS: POLYETHYLENE GLYCOL (HEALTHYLAX) 3350 17 GM PACKET PO SCH (05:42)
[2022-01-09] MEDS: INSULIN SLIDING SCALE (NOVOLOG) 1 VIAL SQ SCH ×2 (06:13→12:45)
[2022-01-09] MEDS ORDERED: ACETAMINOPHEN 325 MG TABLET (FP) PO PRN (10:49)
[2022-01-09] MEDS: metoPROLOL SUCCINATE 25 MG TAB.SR.24H (FP) PO SCH (11:37)
[2022-01-09] MEDS: ISOSORBIDE MONONITRATE 30 MG TAB.SR.24H (FP) PO SCH (11:37)
[2022-01-09] MEDS: ANASTROZOLE 1 MG TABLET PO SCH (11:37)
[2022-01-09] MEDS: BUDESONIDE/FORMETEROL FUMARATE 80/4.5 mcg INHALER IH SCH (11:38)
[2022-01-09] MEDS: FUROSEMIDE 40 MG TABLET (FP) PO SCH (11:38)
[2022-01-09] MEDS: ENOXAPARIN NA (PORCINE) 40 MG/0.4 ML DISP.SYRIN SQ SCH (11:48)
[2022-01-09 12:08] VITALS: BP 133/72; PULSE 99; TEMP 98.9
[2022-01-10] MEDS ORDERED: POLYETHYLENE GLYCOL (HEALTHYLAX) 3350 17 GM PACKET PO SCH (22:00)
== END 2022-01-09 12:20 | disposition home or self-care (01) ==
LOC: JER 17:25 → JERBED 01-04 01:27 → J5S 01-04 03:49
PROVIDERS: ADMIT Hospitalist; ATTEND Nurse Practitioner Acute Care
PROC: 3E033NZ Introduction of Analgesics, Hypnotics, Sedatives into Peripheral Vein, Percutaneous Approach (ICD-10-PCS; principal; 2022-01-04)
PROC: 3E0337Z Introduction of Electrolytic and Water Balance Substance into Peripheral Vein, Percutaneous Approach (ICD-10-PCS; 2022-01-04)
DX: K83.8 Other specified diseases of biliary tract (principal); K59.00 Constipation, unspecified; K44.9 Diaphragmatic hernia without obstruction or gangrene; I25.10 Atherosclerotic heart disease of native coronary artery without angina pectoris; K29.70 Gastritis, unspecified, without bleeding; D64.9 Anemia, unspecified; J45.909 Unspecified asthma, uncomplicated; E11.21 Type 2 diabetes mellitus with diabetic nephropathy; I50.9 Heart failure, unspecified; G47.30 Sleep apnea, unspecified; Z90.89 Acquired absence of other organs; Z90.49 Acquired absence of other specified parts of digestive tract; Z96.652 Presence of left artificial knee joint; I25.2 Old myocardial infarction; E78.5 Hyperlipidemia, unspecified; Z85.3 Personal history of malignant neoplasm of breast; Z87.891 Personal history of nicotine dependence; R10.84 Generalized abdominal pain; Z98.890 Other specified postprocedural states; Z95.5 Presence of coronary angioplasty implant and graft; Z86.73 Personal history of transient ischemic attack (TIA), and cerebral infarction without residual deficits; K64.9 Unspecified hemorrhoids
CPT/HCPCS: 36415; 71045-TC-FY; 74018-TC-FY; 74176-TC; 80053; 81003; 82728; 82962; 83036; 83540; 83550; 83605; 83690; 83735; 84100; 85025; 85610; 85730; 87086; 93005; 93010; 96361; 96374; 97116-GP; 99285-25; C9803-CS; G0378; U0003; U0005

== ENCOUNTER 2022-01-30 12:51 | Inpatient (IN) | payer OTHER ==
[2022-01-30] MEDS ORDERED: SODIUM CHLORIDE 0.9% 500 ML INFUS.BAG IV ONE (13:54)
[2022-01-30 14:53] LABS: BASO % 0.6 % (0-2.0); EOS % 1.1 % (0-4.5); HEMATOCRIT 33.8 % (32.4-45.2); HEMOGLOBIN 11.1 GM/dL (10.7-15.3); LYMPH % 19.8 % (8-40); MCH 28.9 pg (25.7-33.7); MCHC 32.9 g/dl (32.0-36.0); MEAN CELL VOLUME 87.8 fl (80-96); MEAN PLT VOLUME 7.9 fl (7.5-11.1); MONO % 7.6 % (3.8-10.2); NEUT % 70.9 % (42.8-82.8); PLATELET COUNT 286 10^3/uL (134-434); RBC 3.85 M/mm3 (3.60-5.2); RDW 15.2 % (11.6-15.6); WHITE BLOOD COUNT 5.4 K/mm3 (4.0-10.0)
[2022-01-30 15:09] LABS: VENOUS BASE EXCESS 3.8 mmol/L (-2-2); VENOUS O2 SATURATION 70.4 % (70-80); VENOUS PH 7.274 (7.310-7.410)
[2022-01-30 15:13] LABS: VENOUS PCO2 71.9 mmHg (38-52)
[2022-01-30 15:24] LABS: CALCIUM 10.3 mg/dL (8.5-10.1)
[2022-01-30 15:25] LABS: ALBUMIN 4.1 g/dl (3.4-5.0); BLOOD UREA NITROGEN 39.6 mg/dL (7-18)
[2022-01-30 15:28] LABS: CREATININE 1.4 mg/dL (0.55-1.3)
[2022-01-30 15:29] LABS: BILIRUBIN,TOTAL 0.4 mg/dL (0.2-1); TOT PROT 7.5 g/dl (6.4-8.2)
[2022-01-30 16:25] LABS: ARTERIAL BLD GAS O2 SATURATION 76.9 % (95-98); ARTERIAL BLOOD GAS BASE EXCESS 3.7 mmol/L (-2-2); ARTERIAL BLOOD GAS pH 7.354 (7.350-7.450)
[2022-01-30 16:26] LABS: EPI CELLS 29 /uL (0-25.1); HYALINE CASTS 4 /uL (0-3.1); PH,URINE 7.5 (5.0-8.0); URINE APPEARANCE CLOUDY; URINE BACTERIA >9,000 /uL (0-1359); URINE BILIRUBIN NEGATIVE (NEGATIVE); URINE COLOR YELLOW; URINE GLUCOSE (UA) 1+ (NEGATIVE); URINE KETONE TRACE (NEGATIVE); URINE LEUK ESTERASE 2+ (NEGATIVE); URINE NITRITE NEGATIVE (NEGATIVE); URINE PROTEIN 3+ (NEGATIVE); URINE RBC 19 /uL (0-23.9); URINE UROBILINOGEN 0.2 mg/dL (0.2-1.0); URINE WBC 3493 /uL (0-25.8)
[2022-01-30] MEDS ORDERED: CEFTRIAXONE 1,000 MG in DEXTROSE 5%-WATER - 50 ML IVPB ONE (16:39)
[2022-01-30] MEDS ORDERED: ALBUTEROL SO4 0.083% IH SOL 2.5 MG/3 ML VIAL.NEB. NEB PRN (16:47)
[2022-01-30] MEDS ORDERED: AZITHROMYCIN 250 MG TABLET ONE (17:05)
[2022-01-30] MEDS ORDERED: CEFTRIAXONE 1 GM/50 ML BAG ONE (17:05)
[2022-01-30] MEDS ORDERED: methylPREDNISolone NA SUCC 40 MG/1 ML VIAL ONE (17:06)
[2022-01-30] MEDS: AZITHROMYCIN 500 MG TABLET PO SCH (17:21)
[2022-01-30] MEDS: methylPREDNISolone NA SUCC 40 MG/1 ML VIAL IVPUSH SCH (17:21)
[2022-01-30] MEDS ORDERED: SODIUM CHLORIDE 1,000 ML IV SCH (18:15)
[2022-01-30] MEDS: ALBUTEROL SO4 2.5/IPRATROPIUM 0.5 INH SOL 3 ML VIAL.NEB. NEB SCH (20:55)
[2022-01-30] MEDS: ENOXAPARIN NA (PORCINE) 40 MG/0.4 ML DISP.SYRIN SQ SCH ×2 (22:53→23:19)
[2022-01-30] MEDS: ATORVASTATIN CA 40 MG TABLET (FP) PO SCH (22:53)
[2022-01-30] MEDS: INSULIN SLIDING SCALE (NOVOLOG) 1 VIAL SQ SCH ×2 (23:04→23:19)
[2022-01-30 23:47] VITALS: BMI 25.3
[2022-01-31] MEDS: methylPREDNISolone NA SUCC 40 MG/1 ML VIAL IVPUSH SCH ×2 (02:03→10:45)
[2022-01-31] MEDS: INSULIN SLIDING SCALE (NOVOLOG) 1 VIAL SQ SCH ×4 (06:00→21:21)
[2022-01-31] MEDS ORDERED: hydrALAZINE HCL 10 MG TABLET PO ONE (06:26)
[2022-01-31] MEDS: ALBUTEROL SO4 2.5/IPRATROPIUM 0.5 INH SOL 3 ML VIAL.NEB. NEB SCH ×4 (07:15→20:05)
[2022-01-31 08:33] LABS: HEMATOCRIT 32.9 % (32.4-45.2); HEMOGLOBIN 10.8 GM/dL (10.7-15.3); MCH 29.1 pg (25.7-33.7); MCHC 32.9 g/dl (32.0-36.0); MEAN CELL VOLUME 88.4 fl (80-96); MEAN PLT VOLUME 8.2 fl (7.5-11.1); PLATELET COUNT 276 10^3/uL (134-434); RBC 3.72 M/mm3 (3.60-5.2); RDW 15.2 % (11.6-15.6); WHITE BLOOD COUNT 3.8 K/mm3 (4.0-10.0)
[2022-01-31 09:08] LABS: BLOOD UREA NITROGEN 42.2 mg/dL (7-18); CALCIUM 9.2 mg/dL (8.5-10.1)
[2022-01-31 09:12] LABS: CREATININE 1.3 mg/dL (0.55-1.3)
[2022-01-31] MEDS ORDERED: FUROSEMIDE 40 MG TABLET (FP) PO SCH (10:00)
[2022-01-31] MEDS: ENOXAPARIN NA (PORCINE) 40 MG/0.4 ML DISP.SYRIN SQ SCH ×2 (10:45→21:19)
[2022-01-31] MEDS: PANTOPRAZOLE 40 MG TABLET PO SCH (10:45)
[2022-01-31] MEDS: metoPROLOL SUCCINATE 25 MG TAB.SR.24H (FP) PO SCH (10:45)
[2022-01-31] MEDS: ISOSORBIDE MONONITRATE 30 MG TAB.SR.24H (FP) PO SCH (10:45)
[2022-01-31] MEDS: ANASTROZOLE 1 MG TABLET PO SCH (12:55)
[2022-01-31] MEDS: AZITHROMYCIN 500 MG TABLET PO SCH (12:55)
[2022-01-31] MEDS: ATORVASTATIN CA 40 MG TABLET (FP) PO SCH (21:19)
[2022-02-01] MEDS: INSULIN SLIDING SCALE (NOVOLOG) 1 VIAL SQ SCH ×4 (06:34→22:43)
[2022-02-01] MEDS: ALBUTEROL SO4 2.5/IPRATROPIUM 0.5 INH SOL 3 ML VIAL.NEB. NEB SCH ×4 (08:22→20:25)
[2022-02-01] MEDS: ANASTROZOLE 1 MG TABLET PO SCH (10:01)
[2022-02-01] MEDS: AZITHROMYCIN 500 MG TABLET PO SCH (10:01)
[2022-02-01] MEDS: ENOXAPARIN NA (PORCINE) 40 MG/0.4 ML DISP.SYRIN SQ SCH ×2 (10:01→22:44)
[2022-02-01] MEDS: metoPROLOL SUCCINATE 25 MG TAB.SR.24H (FP) PO SCH (10:01)
[2022-02-01] MEDS: PANTOPRAZOLE 40 MG TABLET PO SCH (10:01)
[2022-02-01] MEDS: ISOSORBIDE MONONITRATE 30 MG TAB.SR.24H (FP) PO SCH (10:01)
[2022-02-01] MEDS: predniSONE 20 MG TABLET (UD) PO SCH (10:02)
[2022-02-01] MEDS ORDERED: INSULIN (NOVOLOG) ASPART 100 UNITS/ML 10ML VIAL SQ ONE (14:32)
[2022-02-01 14:34] LABS: GLUCOSE,RANDOM 574 mg/dL (74-106)
[2022-02-01] MEDS ORDERED: INSULIN (LEVEMIR) 100 UNITS/ML UNITS SQ ONE (14:57)
[2022-02-01] MEDS: INSULIN (NOVOLOG) ASPART 100 UNITS/ML 10ML VIAL SQ SCH (17:31)
[2022-02-01] MEDS: ATORVASTATIN CA 40 MG TABLET (FP) PO SCH (22:40)
[2022-02-02] MEDS: INSULIN (NOVOLOG) ASPART 100 UNITS/ML 10ML VIAL SQ SCH ×3 (06:06→17:08)
[2022-02-02] MEDS: INSULIN SLIDING SCALE (NOVOLOG) 1 VIAL SQ SCH ×4 (06:06→21:35)
[2022-02-02] MEDS: ALBUTEROL SO4 2.5/IPRATROPIUM 0.5 INH SOL 3 ML VIAL.NEB. NEB SCH ×4 (07:45→20:12)
[2022-02-02 09:03] LABS: BASO % 0.1 % (0-2.0); EOS % 0.1 % (0-4.5); HEMATOCRIT 29.4 % (32.4-45.2); HEMOGLOBIN 9.6 GM/dL (10.7-15.3); LYMPH % 17.6 % (8-40); MCHC 32.7 g/dl (32.0-36.0); MEAN CELL VOLUME 88.8 fl (80-96); MEAN PLT VOLUME 8.3 fl (7.5-11.1); MONO % 8.2 % (3.8-10.2); PLATELET COUNT 258 10^3/uL (134-434); RBC 3.31 M/mm3 (3.60-5.2); RDW 15.6 % (11.6-15.6); WHITE BLOOD COUNT 8.5 K/mm3 (4.0-10.0)
[2022-02-02 09:39] LABS: BLOOD UREA NITROGEN 60.8 mg/dL (7-18); CALCIUM 8.9 mg/dL (8.5-10.1)
[2022-02-02 09:43] LABS: CREATININE 1.6 mg/dL (0.55-1.3)
[2022-02-02] MEDS: metoPROLOL SUCCINATE 25 MG TAB.SR.24H (FP) PO SCH (09:45)
[2022-02-02] MEDS: ANASTROZOLE 1 MG TABLET PO SCH (09:45)
[2022-02-02] MEDS: ISOSORBIDE MONONITRATE 30 MG TAB.SR.24H (FP) PO SCH (09:45)
[2022-02-02] MEDS: predniSONE 20 MG TABLET (UD) PO SCH (09:45)
[2022-02-02] MEDS: ENOXAPARIN NA (PORCINE) 40 MG/0.4 ML DISP.SYRIN SQ SCH ×2 (09:45→21:35)
[2022-02-02] MEDS: PANTOPRAZOLE 40 MG TABLET PO SCH (09:45)
[2022-02-02] MEDS: CEFUROXIME AXETIL 500 MG TABLET PO SCH ×2 (12:38→21:34)
[2022-02-02] MEDS ORDERED: INSULIN (NOVOLOG) ASPART 100 UNITS/ML 10ML VIAL ONE (17:33)
[2022-02-02] MEDS ORDERED: INSULIN (LEVEMIR) 100 UNITS/ML UNITS SQ ONE (17:33)
[2022-02-02] MEDS: ATORVASTATIN CA 40 MG TABLET (FP) PO SCH (21:34)
[2022-02-02] MEDS: MELATONIN 1 MG TABLET PO SCH (21:35)
[2022-02-02] MEDS: INSULIN (LEVEMIR) 100 UNITS/ML UNITS SQ SCH (21:35)
[2022-02-03] MEDS: INSULIN SLIDING SCALE (NOVOLOG) 1 VIAL SQ SCH ×4 (06:43→21:31)
[2022-02-03] MEDS: INSULIN (NOVOLOG) ASPART 100 UNITS/ML 10ML VIAL SQ SCH ×3 (06:43→17:17)
[2022-02-03] MEDS: ALBUTEROL SO4 2.5/IPRATROPIUM 0.5 INH SOL 3 ML VIAL.NEB. NEB SCH ×4 (07:49→20:11)
[2022-02-03] MEDS: PANTOPRAZOLE 40 MG TABLET PO SCH (10:12)
[2022-02-03] MEDS: ANASTROZOLE 1 MG TABLET PO SCH (10:12)
[2022-02-03] MEDS: CEFUROXIME AXETIL 500 MG TABLET PO SCH ×2 (10:12→21:31)
[2022-02-03] MEDS: ISOSORBIDE MONONITRATE 30 MG TAB.SR.24H (FP) PO SCH (10:12)
[2022-02-03] MEDS: ENOXAPARIN NA (PORCINE) 40 MG/0.4 ML DISP.SYRIN SQ SCH ×2 (10:13→21:31)
[2022-02-03] MEDS: metoPROLOL SUCCINATE 25 MG TAB.SR.24H (FP) PO SCH (10:13)
[2022-02-03] MEDS: predniSONE 20 MG TABLET (UD) PO SCH (10:13)
[2022-02-03] MEDS ORDERED: INSULIN (NOVOLOG) ASPART 100 UNITS/ML 10ML VIAL ONE ×2 (11:00→17:29)
[2022-02-03] MEDS: MELATONIN 1 MG TABLET PO SCH (21:31)
[2022-02-03] MEDS: ATORVASTATIN CA 40 MG TABLET (FP) PO SCH (21:31)
[2022-02-03] MEDS: INSULIN (LEVEMIR) 100 UNITS/ML UNITS SQ SCH (21:32)
[2022-02-04] MEDS: INSULIN (NOVOLOG) ASPART 100 UNITS/ML 10ML VIAL SQ SCH ×2 (06:52→11:44)
[2022-02-04] MEDS: INSULIN SLIDING SCALE (NOVOLOG) 1 VIAL SQ SCH ×2 (06:53→11:44)
[2022-02-04] MEDS: ALBUTEROL SO4 2.5/IPRATROPIUM 0.5 INH SOL 3 ML VIAL.NEB. NEB SCH ×3 (08:55→16:58)
[2022-02-04] MEDS: CEFUROXIME AXETIL 500 MG TABLET PO SCH (11:00)
[2022-02-04] MEDS: ANASTROZOLE 1 MG TABLET PO SCH (11:00)
[2022-02-04] MEDS: predniSONE 20 MG TABLET (UD) PO SCH (11:00)
[2022-02-04] MEDS: PANTOPRAZOLE 40 MG TABLET PO SCH (11:01)
[2022-02-04] MEDS: metoPROLOL SUCCINATE 25 MG TAB.SR.24H (FP) PO SCH (11:01)
[2022-02-04] MEDS: ISOSORBIDE MONONITRATE 30 MG TAB.SR.24H (FP) PO SCH (11:01)
[2022-02-04] MEDS: ENOXAPARIN NA (PORCINE) 40 MG/0.4 ML DISP.SYRIN SQ SCH (11:03)
[2022-02-04] MEDS ORDERED: INSULIN (NOVOLOG) ASPART 100 UNITS/ML 10ML VIAL ONE (11:25)
[2022-02-04 15:31] VITALS: BP 125/73; PULSE 69; TEMP 98.5
== END 2022-02-04 16:38 | disposition home health service (06) | DRG 189 ==
LOC: JER 12:51 → JERBED 18:17 → J8W 20:48
PROVIDERS: ADMIT Internal Medicine; ATTEND Internal Medicine
DX: J96.22 Acute and chronic respiratory failure with hypercapnia (principal); J44.1 Chronic obstructive pulmonary disease with (acute) exacerbation; N17.9 Acute kidney failure, unspecified; N39.0 Urinary tract infection, site not specified; J96.21 Acute and chronic respiratory failure with hypoxia; F03.90 Unspecified dementia, unspecified severity, without behavioral disturbance, psychotic disturbance, mood disturbance, and anxiety; E78.5 Hyperlipidemia, unspecified; E11.22 Type 2 diabetes mellitus with diabetic chronic kidney disease; I12.9 Hypertensive chronic kidney disease with stage 1 through stage 4 chronic kidney disease, or unspecified chronic kidney disease; N18.9 Chronic kidney disease, unspecified; I69.398 Other sequelae of cerebral infarction; Z99.81 Dependence on supplemental oxygen; Z85.3 Personal history of malignant neoplasm of breast
CPT/HCPCS: 0241U-QW; 36415; 36600; 70450-TC; 71045-TC-FY; 80048; 80053; 81003; 82140; 82803; 82947; 82962; 84484; 85025; 85027; 87086; 87186; 93005; 93010; 94640; 94761; 97116-GP; 97161-GP; 99285-25

== ENCOUNTER 2022-02-18 17:19 | Inpatient (IN) | payer OTHER ==
[2022-02-18 17:38] VITALS: BMI 25.0
[2022-02-18] MEDS ORDERED: ONDANSETRON 4 MG/2 ML VIAL IVPUSH ONE (20:40)
[2022-02-18] MEDS ORDERED: ACETAMINOPHEN 1000 MG/100 ML BAG IVPB ONE (20:41)
[2022-02-18] MEDS ORDERED: FAMOTIDINE 20 MG/50 ML IVPB 20 MG/50 ML MG IVPB ONE ×2 (20:42→20:46)
[2022-02-18] MEDS ORDERED: ACETAMINOPHEN INJECTION 100 ML IVPB ONE (20:46)
[2022-02-18] MEDS ORDERED: ONDANSETRON 4 MG/2 ML VIAL ONE (20:46)
[2022-02-18 21:07] LABS: BASO % 0.4 % (0-2.0); EOS % 0.8 % (0-4.5); HEMATOCRIT 32.2 % (32.4-45.2); HEMOGLOBIN 10.5 GM/dL (10.7-15.3); LYMPH % 28.6 % (8-40); MCH 29.2 pg (25.7-33.7); MCHC 32.7 g/dl (32.0-36.0); MEAN CELL VOLUME 89.3 fl (80-96); MEAN PLT VOLUME 7.5 fl (7.5-11.1); MONO % 8.6 % (3.8-10.2); NEUT % 61.6 % (42.8-82.8); PLATELET COUNT 257 10^3/uL (134-434); RBC 3.61 M/mm3 (3.60-5.2); RDW 15.8 % (11.6-15.6); WHITE BLOOD COUNT 7.1 K/mm3 (4.0-10.0)
[2022-02-18 21:17] LABS: INR 0.97 (0.83-1.09); PROTHROMBIN TIME (PATIENT) 11.2 SEC (9.7-13.0)
[2022-02-18 21:19] LABS: ACTIVATED PTT 30.6 SECONDS (25.2-36.5)
[2022-02-18 21:26] LABS: ALBUMIN 3.5 g/dl (3.4-5.0); BLOOD UREA NITROGEN 27.3 mg/dL (7-18); CALCIUM 9.5 mg/dL (8.5-10.1)
[2022-02-18 21:28] LABS: CREATININE 1.1 mg/dL (0.55-1.3)
[2022-02-18 21:31] LABS: BILIRUBIN,TOTAL 0.4 mg/dL (0.2-1)
[2022-02-18] MEDS ORDERED: SODIUM CHLORIDE 0.9% 1000 ML INFUS.BAG IV ONE (23:45)
[2022-02-19 02:15] LABS: EPI CELLS 5 /uL (0-25.1); HYALINE CASTS 1 /uL (0-3.1); PH,URINE 7.5 (5.0-8.0); URINE APPEARANCE CLEAR; URINE BACTERIA 4 /uL (0-1359); URINE BILIRUBIN NEGATIVE (NEGATIVE); URINE COLOR YELLOW; URINE GLUCOSE (UA) NEGATIVE (NEGATIVE); URINE KETONE NEGATIVE (NEGATIVE); URINE LEUK ESTERASE NEGATIVE (NEGATIVE); URINE NITRITE NEGATIVE (NEGATIVE); URINE PROTEIN 2+ (NEGATIVE); URINE RBC 9 /uL (0-23.9); URINE UROBILINOGEN 0.2 mg/dL (0.2-1.0); URINE WBC 2 /uL (0-25.8)
[2022-02-19] MEDS ORDERED: ONDANSETRON 4 MG/2 ML VIAL IVPUSH PRN (04:04)
[2022-02-19] MEDS ORDERED: DEXTROSE 50%-WATER 25 GM/50 ML DISP.SYRIN IVPUSH PRN (04:16)
[2022-02-19] MEDS: INSULIN SLIDING SCALE (NOVOLOG) 1 VIAL SQ SCH ×4 (08:26→21:59)
[2022-02-19] MEDS: FUROSEMIDE 40 MG TABLET (FP) PO SCH (10:21)
[2022-02-19] MEDS: ENOXAPARIN NA (PORCINE) 40 MG/0.4 ML DISP.SYRIN SQ SCH (10:21)
[2022-02-19] MEDS: metoPROLOL SUCCINATE 25 MG TAB.SR.24H (FP) PO SCH (10:21)
[2022-02-19] MEDS ORDERED: INSULIN (NOVOLOG) ASPART 100 UNITS/ML 10ML VIAL ONE ×2 (11:49→18:24)
[2022-02-19] MEDS: POLYETHYLENE GLYCOL (HEALTHYLAX) 3350 17 GM PACKET PO SCH ×2 (13:30→21:55)
[2022-02-19] MEDS ORDERED: ACETAMINOPHEN 325 MG TABLET (FP) PO PRN (16:15)
[2022-02-19] MEDS ORDERED: PNEUMOC 20-VAL CONJ-DIP CRM/PF 0.5 ML SYRINGE IM ONE (22:30)
[2022-02-20] MEDS: POLYETHYLENE GLYCOL (HEALTHYLAX) 3350 17 GM PACKET PO SCH ×3 (05:21→21:16)
[2022-02-20] MEDS: INSULIN SLIDING SCALE (NOVOLOG) 1 VIAL SQ SCH ×4 (06:23→21:16)
[2022-02-20] MEDS: TAMSULOSIN HCL 0.4 MG CAP PO SCH (08:28)
[2022-02-20] MEDS: FUROSEMIDE 40 MG TABLET (FP) PO SCH (09:11)
[2022-02-20] MEDS: metoPROLOL SUCCINATE 25 MG TAB.SR.24H (FP) PO SCH (09:11)
[2022-02-20] MEDS: ENOXAPARIN NA (PORCINE) 40 MG/0.4 ML DISP.SYRIN SQ SCH (09:11)
[2022-02-20 10:45] LABS: BASO % 0.7 % (0-2.0); EOS % 1.3 % (0-4.5); HEMATOCRIT 34.4 % (32.4-45.2); HEMOGLOBIN 10.9 GM/dL (10.7-15.3); LYMPH % 19.4 % (8-40); MCH 28.7 pg (25.7-33.7); MCHC 31.8 g/dl (32.0-36.0); MEAN CELL VOLUME 90.2 fl (80-96); NEUT % 70.6 % (42.8-82.8); PLATELET COUNT 258 10^3/uL (134-434); RBC 3.81 M/mm3 (3.60-5.2); RDW 15.5 % (11.6-15.6)
[2022-02-20 11:13] LABS: ALBUMIN 3.2 g/dl (3.4-5.0); BLOOD UREA NITROGEN 29.2 mg/dL (7-18); MAGNESIUM 1.9 mg/dL (1.8-2.4)
[2022-02-20 11:16] LABS: CREATININE 1.2 mg/dL (0.55-1.3)
[2022-02-20 11:17] LABS: BILIRUBIN,TOTAL 0.9 mg/dL (0.2-1)
[2022-02-20] MEDS ORDERED: INSULIN (NOVOLOG) ASPART 100 UNITS/ML 10ML VIAL ONE (20:39)
[2022-02-21] MEDS ORDERED: INSULIN (NOVOLOG) ASPART 100 UNITS/ML 10ML VIAL ONE ×3 (05:53→21:27)
[2022-02-21] MEDS: POLYETHYLENE GLYCOL (HEALTHYLAX) 3350 17 GM PACKET PO SCH ×3 (06:25→21:37)
[2022-02-21] MEDS: INSULIN SLIDING SCALE (NOVOLOG) 1 VIAL SQ SCH ×4 (06:46→21:41)
[2022-02-21] MEDS: ENOXAPARIN NA (PORCINE) 40 MG/0.4 ML DISP.SYRIN SQ SCH (10:12)
[2022-02-21] MEDS: FUROSEMIDE 40 MG TABLET (FP) PO SCH (10:12)
[2022-02-21] MEDS: metoPROLOL SUCCINATE 25 MG TAB.SR.24H (FP) PO SCH (10:12)
[2022-02-21] MEDS: TAMSULOSIN HCL 0.4 MG CAP PO SCH (10:12)
[2022-02-21 11:05] LABS: BASO % 0.6 % (0-2.0); EOS % 1.2 % (0-4.5); HEMOGLOBIN 10.2 GM/dL (10.7-15.3); LYMPH % 20.4 % (8-40); MCH 29.4 pg (25.7-33.7); MCHC 32.9 g/dl (32.0-36.0); MEAN CELL VOLUME 89.3 fl (80-96); MEAN PLT VOLUME 7.2 fl (7.5-11.1); MONO % 8.9 % (3.8-10.2); NEUT % 68.9 % (42.8-82.8); PLATELET COUNT 229 10^3/uL (134-434); RBC 3.47 M/mm3 (3.60-5.2); RDW 15.4 % (11.6-15.6); WHITE BLOOD COUNT 4.5 K/mm3 (4.0-10.0)
[2022-02-21 11:42] LABS: ALBUMIN 3.1 g/dl (3.4-5.0); BLOOD UREA NITROGEN 35.9 mg/dL (7-18); CALCIUM 8.7 mg/dL (8.5-10.1)
[2022-02-21 11:44] LABS: CREATININE 1.2 mg/dL (0.55-1.3)
[2022-02-21 11:46] LABS: BILIRUBIN,TOTAL 0.6 mg/dL (0.2-1); TOT PROT 5.9 g/dl (6.4-8.2)
[2022-02-21] MEDS ORDERED: FUROSEMIDE 40 MG/4 ML INJECTABLE VIAL IVPUSH ONE (13:50)
[2022-02-21] MEDS ORDERED: ALBUTEROL SO4 0.083% IH SOL 2.5 MG/3 ML VIAL.NEB. NEB PRN (14:25)
[2022-02-21 15:25] LABS: ARTERIAL BLD GAS O2 SATURATION 97.4 % (95-98); ARTERIAL BLOOD GAS PO2 93.1 mmHg (80-100); ARTERIAL BLOOD GAS pH 7.443 (7.350-7.450)
[2022-02-21 15:28] LABS: ALLENS TEST POSITIVE
[2022-02-21] MEDS: ALBUTEROL SO4 2.5/IPRATROPIUM 0.5 INH SOL 3 ML VIAL.NEB. NEB SCH ×2 (16:06→19:42)
[2022-02-21] MEDS: methylPREDNISolone NA SUCC 40 MG/1 ML VIAL IVPUSH SCH ×2 (16:31→21:37)
[2022-02-21] MEDS: BUDESONIDE/FORMETEROL FUMARATE 160/4.5 mcg INHALER IH SCH (22:12)
[2022-02-22] MEDS: methylPREDNISolone NA SUCC 40 MG/1 ML VIAL IVPUSH SCH ×4 (02:55→21:34)
[2022-02-22] MEDS: INSULIN SLIDING SCALE (NOVOLOG) 1 VIAL SQ SCH ×4 (06:26→21:29)
[2022-02-22] MEDS: POLYETHYLENE GLYCOL (HEALTHYLAX) 3350 17 GM PACKET PO SCH ×3 (06:27→21:34)
[2022-02-22] MEDS: ALBUTEROL SO4 2.5/IPRATROPIUM 0.5 INH SOL 3 ML VIAL.NEB. NEB SCH ×4 (08:20→20:19)
[2022-02-22] MEDS: TAMSULOSIN HCL 0.4 MG CAP PO SCH (09:23)
[2022-02-22] MEDS: metoPROLOL SUCCINATE 25 MG TAB.SR.24H (FP) PO SCH (09:50)
[2022-02-22] MEDS: BUDESONIDE/FORMETEROL FUMARATE 160/4.5 mcg INHALER IH SCH ×2 (09:50→21:34)
[2022-02-22] MEDS: FUROSEMIDE 40 MG TABLET (FP) PO SCH (09:50)
[2022-02-22] MEDS: ENOXAPARIN NA (PORCINE) 40 MG/0.4 ML DISP.SYRIN SQ SCH (10:02)
[2022-02-22] MEDS: INSULIN (LEVEMIR) 100 UNITS/ML UNITS SQ SCH (21:30)
[2022-02-23] MEDS: methylPREDNISolone NA SUCC 40 MG/1 ML VIAL IVPUSH SCH ×2 (02:38→11:03)
[2022-02-23] MEDS: POLYETHYLENE GLYCOL (HEALTHYLAX) 3350 17 GM PACKET PO SCH ×3 (06:08→21:18)
[2022-02-23] MEDS: INSULIN SLIDING SCALE (NOVOLOG) 1 VIAL SQ SCH ×4 (06:13→21:18)
[2022-02-23] MEDS: ALBUTEROL SO4 2.5/IPRATROPIUM 0.5 INH SOL 3 ML VIAL.NEB. NEB SCH ×4 (08:36→20:50)
[2022-02-23] MEDS: FUROSEMIDE 40 MG TABLET (FP) PO SCH (11:02)
[2022-02-23] MEDS: metoPROLOL SUCCINATE 25 MG TAB.SR.24H (FP) PO SCH (11:02)
[2022-02-23] MEDS: TAMSULOSIN HCL 0.4 MG CAP PO SCH (11:02)
[2022-02-23] MEDS: ENOXAPARIN NA (PORCINE) 40 MG/0.4 ML DISP.SYRIN SQ SCH (11:03)
[2022-02-23] MEDS: BUDESONIDE/FORMETEROL FUMARATE 160/4.5 mcg INHALER IH SCH ×2 (11:04→21:17)
[2022-02-23] MEDS ORDERED: INSULIN (NOVOLOG) ASPART 100 UNITS/ML 10ML VIAL ONE (21:11)
[2022-02-23] MEDS: FAMOTIDINE 20 MG TABLET PO SCH (21:16)
[2022-02-23] MEDS: INSULIN (LEVEMIR) 100 UNITS/ML UNITS SQ SCH (21:18)
[2022-02-24] MEDS: INSULIN SLIDING SCALE (NOVOLOG) 1 VIAL SQ SCH ×4 (06:11→21:34)
[2022-02-24] MEDS: POLYETHYLENE GLYCOL (HEALTHYLAX) 3350 17 GM PACKET PO SCH ×3 (06:13→21:34)
[2022-02-24] MEDS ORDERED: INSULIN (NOVOLOG) ASPART 100 UNITS/ML 10ML VIAL ONE ×2 (07:07→21:07)
[2022-02-24] MEDS ORDERED: INSULIN (LEVEMIR) 100 UNITS/ML UNITS SQ ONE (07:07)
[2022-02-24] MEDS: ALBUTEROL SO4 2.5/IPRATROPIUM 0.5 INH SOL 3 ML VIAL.NEB. NEB SCH ×4 (07:46→20:19)
[2022-02-24] MEDS: TAMSULOSIN HCL 0.4 MG CAP PO SCH (08:38)
[2022-02-24] MEDS: FAMOTIDINE 20 MG TABLET PO SCH (09:05)
[2022-02-24] MEDS: metoPROLOL SUCCINATE 25 MG TAB.SR.24H (FP) PO SCH (09:06)
[2022-02-24] MEDS: ENOXAPARIN NA (PORCINE) 40 MG/0.4 ML DISP.SYRIN SQ SCH (09:06)
[2022-02-24] MEDS: predniSONE 20 MG TABLET (UD) PO SCH (09:09)
[2022-02-24] MEDS: FUROSEMIDE 40 MG TABLET (FP) PO SCH (09:11)
[2022-02-24] MEDS ORDERED: FAMOTIDINE 20 MG TABLET PO SCH (10:00)
[2022-02-24] MEDS: BUDESONIDE/FORMETEROL FUMARATE 160/4.5 mcg INHALER IH SCH ×2 (10:10→21:35)
[2022-02-24] MEDS ORDERED: ONDANSETRON *ODT* 4 MG TABLET SL PRN (14:24)
[2022-02-24] MEDS: INSULIN (LEVEMIR) 100 UNITS/ML UNITS SQ SCH (21:34)
[2022-02-25] MEDS: INSULIN SLIDING SCALE (NOVOLOG) 1 VIAL SQ SCH ×3 (06:07→16:15)
[2022-02-25] MEDS: POLYETHYLENE GLYCOL (HEALTHYLAX) 3350 17 GM PACKET PO SCH ×2 (06:07→13:24)
[2022-02-25] MEDS ORDERED: INSULIN (NOVOLOG) ASPART 100 UNITS/ML 10ML VIAL ONE ×2 (07:30→11:44)
[2022-02-25] MEDS ORDERED: INSULIN (LEVEMIR) 100 UNITS/ML UNITS SQ ONE (07:30)
[2022-02-25] MEDS: TAMSULOSIN HCL 0.4 MG CAP PO SCH (08:34)
[2022-02-25] MEDS: ALBUTEROL SO4 2.5/IPRATROPIUM 0.5 INH SOL 3 ML VIAL.NEB. NEB SCH ×3 (08:40→16:14)
[2022-02-25] MEDS: FUROSEMIDE 40 MG TABLET (FP) PO SCH (10:15)
[2022-02-25] MEDS: predniSONE 20 MG TABLET (UD) PO SCH (10:15)
[2022-02-25] MEDS: metoPROLOL SUCCINATE 25 MG TAB.SR.24H (FP) PO SCH (10:15)
[2022-02-25] MEDS: BUDESONIDE/FORMETEROL FUMARATE 160/4.5 mcg INHALER IH SCH (10:15)
[2022-02-25] MEDS: FAMOTIDINE 20 MG TABLET PO SCH (10:15)
[2022-02-25] MEDS: ENOXAPARIN NA (PORCINE) 40 MG/0.4 ML DISP.SYRIN SQ SCH (10:16)
[2022-02-25 10:18] VITALS: PULSE 88
[2022-02-25 15:38] VITALS: BP 127/67; TEMP 98.2
== END 2022-02-25 17:19 | disposition home or self-care (01) | DRG 191 ==
LOC: JER 17:19 → JERBED 02-19 02:14 → J6S 02-19 09:02 → OBSVTOIN 02-22 10:36
PROVIDERS: ADMIT Hospitalist; ATTEND Nurse Practitioner Family
DX: J44.1 Chronic obstructive pulmonary disease with (acute) exacerbation (principal); I50.32 Chronic diastolic (congestive) heart failure; F03.90 Unspecified dementia, unspecified severity, without behavioral disturbance, psychotic disturbance, mood disturbance, and anxiety; R11.2 Nausea with vomiting, unspecified; N20.0 Calculus of kidney; K83.8 Other specified diseases of biliary tract; E78.5 Hyperlipidemia, unspecified; I11.0 Hypertensive heart disease with heart failure; E11.9 Type 2 diabetes mellitus without complications
CPT/HCPCS: 36415; 36600; 71045-TC-FY; 74176-TC; 74181-TC; 80053; 81003; 82803; 82962; 83605; 83690; 83735; 84484; 85025; 85610; 85730; 87086; 90677; 93005; 93010; 94640; 97116-GP; 97162-GP; 99285-25; C9803-CS; G0378; U0003; U0005

== ENCOUNTER 2022-03-11 15:24 | Inpatient (IN) | payer OTHER ==
[2022-03-11 15:51] VITALS: BMI 22.4
[2022-03-11 18:42] LABS: BASO % 0.6 % (0-2.0); HEMATOCRIT 30.2 % (32.4-45.2); HEMOGLOBIN 9.9 GM/dL (10.7-15.3); LYMPH % 18.5 % (8-40); MCH 29.1 pg (25.7-33.7); MCHC 32.8 g/dl (32.0-36.0); MEAN CELL VOLUME 88.7 fl (80-96); MEAN PLT VOLUME 7.8 fl (7.5-11.1); MONO % 6.7 % (3.8-10.2); NEUT % 73.2 % (42.8-82.8); PLATELET COUNT 256 10^3/uL (134-434); RBC 3.41 M/mm3 (3.60-5.2); RDW 14.9 % (11.6-15.6); WHITE BLOOD COUNT 7.2 K/mm3 (4.0-10.0)
[2022-03-11 18:48] LABS: INR 1.02 (0.83-1.09); PROTHROMBIN TIME (PATIENT) 11.7 SEC (9.7-13.0)
[2022-03-11 19:06] LABS: ALBUMIN 3.2 g/dl (3.4-5.0); CALCIUM 8.7 mg/dL (8.5-10.1)
[2022-03-11 19:07] LABS: BLOOD UREA NITROGEN 37.6 mg/dL (7-18)
[2022-03-11 19:10] LABS: CREATININE 1.2 mg/dL (0.55-1.3)
[2022-03-11 19:11] LABS: BILIRUBIN,TOTAL 0.4 mg/dL (0.2-1); TOT PROT 5.9 g/dl (6.4-8.2)
[2022-03-12] MEDS: INSULIN SLIDING SCALE (NOVOLOG) 1 VIAL SQ SCH ×4 (06:08→22:29)
[2022-03-12] MEDS: ALBUTEROL SO4 2.5/IPRATROPIUM 0.5 INH SOL 3 ML VIAL.NEB. NEB SCH ×3 (07:30→20:43)
[2022-03-12 08:39] LABS: HEMATOCRIT 29.9 % (32.4-45.2); HEMOGLOBIN 9.7 GM/dL (10.7-15.3); MCHC 32.6 g/dl (32.0-36.0); PLATELET COUNT 235 10^3/uL (134-434); RBC 3.36 M/mm3 (3.60-5.2); RDW 14.8 % (11.6-15.6); WHITE BLOOD COUNT 5.9 K/mm3 (4.0-10.0)
[2022-03-12 08:45] LABS: INR 1.01 (0.83-1.09); PROTHROMBIN TIME (PATIENT) 11.6 SEC (9.7-13.0)
[2022-03-12 08:48] LABS: ACTIVATED PTT 30.5 SECONDS (25.2-36.5)
[2022-03-12 09:04] LABS: ALBUMIN 2.8 g/dl (3.4-5.0); CALCIUM 8.4 mg/dL (8.5-10.1)
[2022-03-12 09:07] LABS: CREATININE 1.1 mg/dL (0.55-1.3); PHOSPHOROUS 3.4 mg/dL (2.5-4.9)
[2022-03-12 09:08] LABS: BILIRUBIN,TOTAL 0.5 mg/dL (0.2-1); MAGNESIUM 1.9 mg/dL (1.8-2.4); TOT PROT 5.7 g/dl (6.4-8.2)
[2022-03-12] MEDS ORDERED: FAMOTIDINE 20 MG TABLET PO SCH (10:00)
[2022-03-12] MEDS ORDERED: FUROSEMIDE 40 MG TABLET (FP) PO SCH (10:00)
[2022-03-12] MEDS: PANTOPRAZOLE 40 MG TABLET PO SCH (10:59)
[2022-03-12] MEDS: ASCORBIC ACID 500 MG TABLET (FP) PO SCH (10:59)
[2022-03-12] MEDS: POLYETHYLENE GLYCOL (HEALTHYLAX) 3350 17 GM PACKET PO SCH ×2 (10:59→22:31)
[2022-03-12] MEDS: BUDESONIDE/FORMETEROL FUMARATE 160/4.5 mcg INHALER IH SCH ×2 (11:25→22:29)
[2022-03-12] MEDS ORDERED: SODIUM CHLORIDE 1,000 ML IV SCH (11:30)
[2022-03-12] MEDS ORDERED: INSULIN (LEVEMIR) 100 UNITS/ML UNITS SQ ONE (11:39)
[2022-03-12] MEDS: FERROUS SO4 325 MG TABLET (FP) PO SCH ×2 (11:52→17:22)
[2022-03-12 12:38] LABS: EPI CELLS 16 /uL (0-25.1); HYALINE CASTS 0 /uL (0-3.1); PH,URINE 6.5 (5.0-8.0); URINE APPEARANCE CLEAR; URINE BACTERIA 327 /uL (0-1359); URINE BILIRUBIN NEGATIVE (NEGATIVE); URINE COLOR YELLOW; URINE GLUCOSE (UA) 3+ (NEGATIVE); URINE KETONE NEGATIVE (NEGATIVE); URINE LEUK ESTERASE NEGATIVE (NEGATIVE); URINE NITRITE NEGATIVE (NEGATIVE); URINE PROTEIN 2+ (NEGATIVE); URINE UROBILINOGEN 0.2 mg/dL (0.2-1.0); URINE WBC 12 /uL (0-25.8)
[2022-03-12] MEDS: CEFTRIAXONE 1 GM in DEXTROSE 5%-WATER - 50 ML IVPB SCH (14:41)
[2022-03-12 14:52] LABS: URINE RBC 173.5 /uL (0-23.9)
[2022-03-12 14:55] LABS: YEAST NONE SEEN (NEGATIVE)
[2022-03-12] MEDS: ATORVASTATIN CA 40 MG TABLET (FP) PO SCH (22:27)
[2022-03-12] MEDS: HEPARIN NA (PORCINE) 5,000 UNITS/ML 1ML VIAL SQ SCH (22:27)
[2022-03-12] MEDS: INSULIN (LEVEMIR) 100 UNITS/ML UNITS SQ SCH (22:27)
[2022-03-13] MEDS: INSULIN SLIDING SCALE (NOVOLOG) 1 VIAL SQ SCH ×4 (06:52→21:59)
[2022-03-13] MEDS: ALBUTEROL SO4 2.5/IPRATROPIUM 0.5 INH SOL 3 ML VIAL.NEB. NEB SCH ×3 (07:32→20:10)
[2022-03-13 08:51] LABS: BASO % 0.5 % (0-2.0); EOS % 0.8 % (0-4.5); HEMATOCRIT 31.4 % (32.4-45.2); HEMOGLOBIN 10.2 GM/dL (10.7-15.3); LYMPH % 21.7 % (8-40); MCHC 32.6 g/dl (32.0-36.0); MEAN CELL VOLUME 89.1 fl (80-96); MEAN PLT VOLUME 7.7 fl (7.5-11.1); MONO % 7.6 % (3.8-10.2); NEUT % 69.4 % (42.8-82.8); PLATELET COUNT 228 10^3/uL (134-434); RBC 3.52 M/mm3 (3.60-5.2); RDW 15.2 % (11.6-15.6); WHITE BLOOD COUNT 6.7 K/mm3 (4.0-10.0)
[2022-03-13] MEDS: FERROUS SO4 325 MG TABLET (FP) PO SCH ×3 (08:52→17:42)
[2022-03-13] MEDS: HEPARIN NA (PORCINE) 5,000 UNITS/ML 1ML VIAL SQ SCH ×2 (09:02→22:00)
[2022-03-13] MEDS: POLYETHYLENE GLYCOL (HEALTHYLAX) 3350 17 GM PACKET PO SCH ×2 (09:02→22:00)
[2022-03-13] MEDS: ASCORBIC ACID 500 MG TABLET (FP) PO SCH (09:02)
[2022-03-13] MEDS: CEFTRIAXONE 1 GM in DEXTROSE 5%-WATER - 50 ML IVPB SCH (09:02)
[2022-03-13] MEDS: BUDESONIDE/FORMETEROL FUMARATE 160/4.5 mcg INHALER IH SCH ×2 (09:12→22:07)
[2022-03-13 09:19] LABS: CALCIUM 8.2 mg/dL (8.5-10.1)
[2022-03-13 09:20] LABS: ALBUMIN 2.8 g/dl (3.4-5.0); BLOOD UREA NITROGEN 30.1 mg/dL (7-18)
[2022-03-13 09:25] LABS: BILIRUBIN,TOTAL 0.4 mg/dL (0.2-1); TOT PROT 5.6 g/dl (6.4-8.2)
[2022-03-13] MEDS: PANTOPRAZOLE 40 MG TABLET PO SCH (11:00)
[2022-03-13] MEDS: SODIUM CHLORIDE 1,000 ML IV SCH (13:33)
[2022-03-13] MEDS: INSULIN (LEVEMIR) 100 UNITS/ML UNITS SQ SCH (21:59)
[2022-03-13] MEDS: ATORVASTATIN CA 40 MG TABLET (FP) PO SCH (22:00)
[2022-03-14] MEDS: INSULIN SLIDING SCALE (NOVOLOG) 1 VIAL SQ SCH ×4 (06:29→21:27)
[2022-03-14] MEDS: SODIUM CHLORIDE 1,000 ML IV SCH (06:33)
[2022-03-14] MEDS: ALBUTEROL SO4 2.5/IPRATROPIUM 0.5 INH SOL 3 ML VIAL.NEB. NEB SCH ×3 (08:00→19:40)
[2022-03-14] MEDS: FERROUS SO4 325 MG TABLET (FP) PO SCH ×3 (08:49→17:10)
[2022-03-14 09:11] LABS: BASO % 0.6 % (0-2.0); EOS % 1.1 % (0-4.5); HEMATOCRIT 28.1 % (32.4-45.2); HEMOGLOBIN 9.3 GM/dL (10.7-15.3); LYMPH % 17.3 % (8-40); MCH 29.5 pg (25.7-33.7); MEAN CELL VOLUME 89.6 fl (80-96); PLATELET COUNT 210 10^3/uL (134-434); RBC 3.14 M/mm3 (3.60-5.2); RDW 15.2 % (11.6-15.6)
[2022-03-14 09:43] LABS: ALBUMIN 2.6 g/dl (3.4-5.0); BLOOD UREA NITROGEN 30.1 mg/dL (7-18); CALCIUM 8.1 mg/dL (8.5-10.1); MAGNESIUM 1.7 mg/dL (1.8-2.4)
[2022-03-14 09:46] LABS: CREATININE 1.1 mg/dL (0.55-1.3)
[2022-03-14 09:48] LABS: BILIRUBIN,TOTAL 0.4 mg/dL (0.2-1); TOT PROT 5.2 g/dl (6.4-8.2)
[2022-03-14] MEDS: POLYETHYLENE GLYCOL (HEALTHYLAX) 3350 17 GM PACKET PO SCH ×2 (11:37→21:14)
[2022-03-14] MEDS: ASCORBIC ACID 500 MG TABLET (FP) PO SCH (11:37)
[2022-03-14] MEDS: HEPARIN NA (PORCINE) 5,000 UNITS/ML 1ML VIAL SQ SCH ×2 (11:37→21:08)
[2022-03-14] MEDS: PANTOPRAZOLE 40 MG TABLET PO SCH (11:38)
[2022-03-14] MEDS: CEFTRIAXONE 1 GM in DEXTROSE 5%-WATER - 50 ML IVPB SCH (11:38)
[2022-03-14] MEDS: BUDESONIDE/FORMETEROL FUMARATE 160/4.5 mcg INHALER IH SCH ×2 (12:01→21:15)
[2022-03-14] MEDS: CEFUROXIME AXETIL 500 MG TABLET PO SCH (21:07)
[2022-03-14] MEDS: ATORVASTATIN CA 40 MG TABLET (FP) PO SCH (21:09)
[2022-03-14] MEDS: INSULIN (LEVEMIR) 100 UNITS/ML UNITS SQ SCH (21:28)
[2022-03-15] MEDS: INSULIN SLIDING SCALE (NOVOLOG) 1 VIAL SQ SCH ×4 (06:49→21:56)
[2022-03-15] MEDS: ALBUTEROL SO4 2.5/IPRATROPIUM 0.5 INH SOL 3 ML VIAL.NEB. NEB SCH ×3 (08:10→20:20)
[2022-03-15] MEDS: FERROUS SO4 325 MG TABLET (FP) PO SCH ×3 (08:35→16:59)
[2022-03-15] MEDS: ASCORBIC ACID 500 MG TABLET (FP) PO SCH (10:21)
[2022-03-15] MEDS: CEFUROXIME AXETIL 500 MG TABLET PO SCH ×2 (10:21→21:54)
[2022-03-15] MEDS: HEPARIN NA (PORCINE) 5,000 UNITS/ML 1ML VIAL SQ SCH ×2 (10:21→21:55)
[2022-03-15] MEDS: POLYETHYLENE GLYCOL (HEALTHYLAX) 3350 17 GM PACKET PO SCH ×3 (10:21→21:57)
[2022-03-15] MEDS: PANTOPRAZOLE 40 MG TABLET PO SCH (10:21)
[2022-03-15] MEDS: BUDESONIDE/FORMETEROL FUMARATE 160/4.5 mcg INHALER IH SCH ×2 (10:22→22:00)
[2022-03-15 10:29] LABS: HEMATOCRIT 29.7 % (32.4-45.2); HEMOGLOBIN 9.8 GM/dL (10.7-15.3); MCH 29.5 pg (25.7-33.7); MCHC 32.9 g/dl (32.0-36.0); MEAN CELL VOLUME 89.7 fl (80-96); MEAN PLT VOLUME 8.1 fl (7.5-11.1); PLATELET COUNT 230 10^3/uL (134-434); RBC 3.31 M/mm3 (3.60-5.2); RDW 15.3 % (11.6-15.6); WHITE BLOOD COUNT 6.4 K/mm3 (4.0-10.0)
[2022-03-15] MEDS: SODIUM CHLORIDE 1,000 ML IV SCH (15:52)
[2022-03-15] MEDS ORDERED: ACETAMINOPHEN 325 MG TABLET (FP) PO PRN (18:19)
[2022-03-15] MEDS: ATORVASTATIN CA 40 MG TABLET (FP) PO SCH (21:55)
[2022-03-15] MEDS: INSULIN (LEVEMIR) 100 UNITS/ML UNITS SQ SCH (21:56)
[2022-03-16] MEDS: INSULIN SLIDING SCALE (NOVOLOG) 1 VIAL SQ SCH ×4 (06:30→23:14)
[2022-03-16] MEDS: ALBUTEROL SO4 2.5/IPRATROPIUM 0.5 INH SOL 3 ML VIAL.NEB. NEB SCH ×3 (08:00→21:23)
[2022-03-16] MEDS: BUDESONIDE/FORMETEROL FUMARATE 160/4.5 mcg INHALER IH SCH ×2 (10:51→23:01)
[2022-03-16] MEDS: ASCORBIC ACID 500 MG TABLET (FP) PO SCH (10:51)
[2022-03-16] MEDS: CEFUROXIME AXETIL 500 MG TABLET PO SCH ×2 (10:51→23:00)
[2022-03-16] MEDS: FERROUS SO4 325 MG TABLET (FP) PO SCH ×4 (10:51→17:22)
[2022-03-16] MEDS: PANTOPRAZOLE 40 MG TABLET PO SCH (10:51)
[2022-03-16] MEDS: POLYETHYLENE GLYCOL (HEALTHYLAX) 3350 17 GM PACKET PO SCH ×2 (10:51→23:00)
[2022-03-16] MEDS: HEPARIN NA (PORCINE) 5,000 UNITS/ML 1ML VIAL SQ SCH ×2 (10:54→23:00)
[2022-03-16] MEDS: SODIUM CHLORIDE 1,000 ML IV SCH (12:21)
[2022-03-16 20:00] LABS: BASO % 0.6 % (0-2.0); EOS % 0.9 % (0-4.5); HEMATOCRIT 28.2 % (32.4-45.2); HEMOGLOBIN 9.2 GM/dL (10.7-15.3); LYMPH % 15.7 % (8-40); MCH 29.2 pg (25.7-33.7); MCHC 32.5 g/dl (32.0-36.0); MEAN CELL VOLUME 89.8 fl (80-96); MEAN PLT VOLUME 7.8 fl (7.5-11.1); MONO % 5.5 % (3.8-10.2); NEUT % 77.3 % (42.8-82.8); PLATELET COUNT 250 10^3/uL (134-434); RBC 3.14 M/mm3 (3.60-5.2); RDW 15.7 % (11.6-15.6); WHITE BLOOD COUNT 5.8 K/mm3 (4.0-10.0)
[2022-03-16 20:20] LABS: CALCIUM 8.8 mg/dL (8.5-10.1)
[2022-03-16 20:21] LABS: BLOOD UREA NITROGEN 34.6 mg/dL (7-18); MAGNESIUM 1.5 mg/dL (1.8-2.4)
[2022-03-16 20:24] LABS: CREATININE 1.8 mg/dL (0.55-1.3)
[2022-03-16 20:25] LABS: BILIRUBIN,TOTAL 0.3 mg/dL (0.2-1); TOT PROT 5.9 g/dl (6.4-8.2)
[2022-03-16] MEDS: ATORVASTATIN CA 40 MG TABLET (FP) PO SCH (23:00)
[2022-03-16] MEDS: INSULIN (LEVEMIR) 100 UNITS/ML UNITS SQ SCH (23:00)
[2022-03-16] MEDS ORDERED: SODIUM ZIRCONIUM CYCLOSILICATE (LOKELMA) 5 GM PACKET PO ONE (23:06)
[2022-03-17] MEDS: POLYETHYLENE GLYCOL (HEALTHYLAX) 3350 17 GM PACKET PO SCH ×3 (00:16→21:27)
[2022-03-17] MEDS: INSULIN SLIDING SCALE (NOVOLOG) 1 VIAL SQ SCH ×5 (07:21→21:40)
[2022-03-17] MEDS: ALBUTEROL SO4 2.5/IPRATROPIUM 0.5 INH SOL 3 ML VIAL.NEB. NEB SCH ×3 (07:32→19:52)
[2022-03-17] MEDS: FERROUS SO4 325 MG TABLET (FP) PO SCH ×3 (08:29→17:07)
[2022-03-17] MEDS: SODIUM CHLORIDE 1,000 ML IV SCH ×2 (08:30→12:17)
[2022-03-17] MEDS: CEFUROXIME AXETIL 500 MG TABLET PO SCH ×2 (10:07→21:27)
[2022-03-17] MEDS: ASCORBIC ACID 500 MG TABLET (FP) PO SCH (10:07)
[2022-03-17] MEDS: PANTOPRAZOLE 40 MG TABLET PO SCH (10:07)
[2022-03-17] MEDS: HEPARIN NA (PORCINE) 5,000 UNITS/ML 1ML VIAL SQ SCH ×3 (10:11→21:40)
[2022-03-17] MEDS: BUDESONIDE/FORMETEROL FUMARATE 160/4.5 mcg INHALER IH SCH ×2 (10:12→21:27)
[2022-03-17] MEDS ORDERED: MAGNESIUM OXIDE 400 MG TABLET (FP) PO ONE (13:31)
[2022-03-17] MEDS: ATORVASTATIN CA 40 MG TABLET (FP) PO SCH (21:27)
[2022-03-17] MEDS: INSULIN (LEVEMIR) 100 UNITS/ML UNITS SQ SCH ×2 (21:27→21:40)
[2022-03-17] MEDS ORDERED: SODIUM ZIRCONIUM CYCLOSILICATE (LOKELMA) 5 GM PACKET PO ONE (21:57)
[2022-03-18] MEDS: INSULIN SLIDING SCALE (NOVOLOG) 1 VIAL SQ SCH ×4 (06:55→22:58)
[2022-03-18] MEDS: ALBUTEROL SO4 2.5/IPRATROPIUM 0.5 INH SOL 3 ML VIAL.NEB. NEB SCH ×3 (07:45→21:23)
[2022-03-18] MEDS: FERROUS SO4 325 MG TABLET (FP) PO SCH ×3 (08:22→17:09)
[2022-03-18] MEDS: POLYETHYLENE GLYCOL (HEALTHYLAX) 3350 17 GM PACKET PO SCH ×2 (09:54→23:06)
[2022-03-18] MEDS: PANTOPRAZOLE 40 MG TABLET PO SCH (09:55)
[2022-03-18] MEDS: BUDESONIDE/FORMETEROL FUMARATE 160/4.5 mcg INHALER IH SCH ×2 (09:55→23:05)
[2022-03-18] MEDS: HEPARIN NA (PORCINE) 5,000 UNITS/ML 1ML VIAL SQ SCH ×2 (09:55→22:59)
[2022-03-18] MEDS: ASCORBIC ACID 500 MG TABLET (FP) PO SCH (09:55)
[2022-03-18] MEDS: CEFUROXIME AXETIL 500 MG TABLET PO SCH ×2 (09:55→22:58)
[2022-03-18] MEDS: LIDOCAINE 5% TOPICAL PATCH TP SCH (12:30)
[2022-03-18] MEDS: SODIUM CHLORIDE 1,000 ML IV SCH ×2 (12:30)
[2022-03-18] MEDS: ATORVASTATIN CA 40 MG TABLET (FP) PO SCH (22:58)
[2022-03-18] MEDS: LIDOCAINE PATCH REMOVAL MC SCH (22:58)
[2022-03-18] MEDS: INSULIN (LEVEMIR) 100 UNITS/ML UNITS SQ SCH (23:00)
[2022-03-19] MEDS: INSULIN SLIDING SCALE (NOVOLOG) 1 VIAL SQ SCH ×5 (06:37→22:05)
[2022-03-19] MEDS: ALBUTEROL SO4 2.5/IPRATROPIUM 0.5 INH SOL 3 ML VIAL.NEB. NEB SCH ×3 (07:44→20:15)
[2022-03-19] MEDS: SODIUM CHLORIDE 1,000 ML IV SCH ×2 (09:32→12:07)
[2022-03-19] MEDS: FERROUS SO4 325 MG TABLET (FP) PO SCH ×4 (10:00→17:03)
[2022-03-19] MEDS: HEPARIN NA (PORCINE) 5,000 UNITS/ML 1ML VIAL SQ SCH ×3 (11:59→22:04)
[2022-03-19] MEDS: CEFUROXIME AXETIL 500 MG TABLET PO SCH ×3 (11:59→22:05)
[2022-03-19] MEDS: POLYETHYLENE GLYCOL (HEALTHYLAX) 3350 17 GM PACKET PO SCH ×2 (11:59→22:05)
[2022-03-19] MEDS: ASCORBIC ACID 500 MG TABLET (FP) PO SCH (11:59)
[2022-03-19] MEDS: PANTOPRAZOLE 40 MG TABLET PO SCH (11:59)
[2022-03-19] MEDS: BUDESONIDE/FORMETEROL FUMARATE 160/4.5 mcg INHALER IH SCH ×2 (12:00→22:06)
[2022-03-19] MEDS: LIDOCAINE 5% TOPICAL PATCH TP SCH (12:00)
[2022-03-19] MEDS ORDERED: INSULIN (NOVOLOG) ASPART 100 UNITS/ML 10ML VIAL ONE (12:01)
[2022-03-19] MEDS: INSULIN (LEVEMIR) 100 UNITS/ML UNITS SQ SCH (22:04)
[2022-03-19] MEDS: LIDOCAINE PATCH REMOVAL MC SCH (22:05)
[2022-03-19] MEDS: ATORVASTATIN CA 40 MG TABLET (FP) PO SCH (22:06)
[2022-03-20] MEDS: INSULIN SLIDING SCALE (NOVOLOG) 1 VIAL SQ SCH ×4 (06:46→22:44)
[2022-03-20] MEDS: ALBUTEROL SO4 2.5/IPRATROPIUM 0.5 INH SOL 3 ML VIAL.NEB. NEB SCH ×3 (07:22→19:49)
[2022-03-20] MEDS: FERROUS SO4 325 MG TABLET (FP) PO SCH ×3 (10:21→17:59)
[2022-03-20] MEDS: CEFUROXIME AXETIL 500 MG TABLET PO SCH ×2 (10:22→22:41)
[2022-03-20] MEDS: ASCORBIC ACID 500 MG TABLET (FP) PO SCH (10:22)
[2022-03-20] MEDS: HEPARIN NA (PORCINE) 5,000 UNITS/ML 1ML VIAL SQ SCH ×2 (10:22→22:41)
[2022-03-20] MEDS: POLYETHYLENE GLYCOL (HEALTHYLAX) 3350 17 GM PACKET PO SCH ×2 (10:22→22:41)
[2022-03-20] MEDS: PANTOPRAZOLE 40 MG TABLET PO SCH (10:22)
[2022-03-20] MEDS: BUDESONIDE/FORMETEROL FUMARATE 160/4.5 mcg INHALER IH SCH ×2 (10:23→22:44)
[2022-03-20] MEDS: LIDOCAINE 5% TOPICAL PATCH TP SCH (10:23)
[2022-03-20] MEDS ORDERED: INSULIN (NOVOLOG) ASPART 100 UNITS/ML 10ML VIAL ONE (11:55)
[2022-03-20] MEDS: SODIUM CHLORIDE 1,000 ML IV SCH ×2 (17:12→17:13)
[2022-03-20] MEDS: INSULIN (LEVEMIR) 100 UNITS/ML UNITS SQ SCH (22:41)
[2022-03-20] MEDS: ATORVASTATIN CA 40 MG TABLET (FP) PO SCH (22:44)
[2022-03-20] MEDS: LIDOCAINE PATCH REMOVAL MC SCH (22:44)
[2022-03-21] MEDS: INSULIN SLIDING SCALE (NOVOLOG) 1 VIAL SQ SCH ×4 (07:09→22:19)
[2022-03-21] MEDS: ALBUTEROL SO4 2.5/IPRATROPIUM 0.5 INH SOL 3 ML VIAL.NEB. NEB SCH ×3 (07:28→20:05)
[2022-03-21] MEDS: FERROUS SO4 325 MG TABLET (FP) PO SCH ×3 (10:36→17:17)
[2022-03-21] MEDS: ASCORBIC ACID 500 MG TABLET (FP) PO SCH (10:36)
[2022-03-21] MEDS: HEPARIN NA (PORCINE) 5,000 UNITS/ML 1ML VIAL SQ SCH ×2 (10:36→22:16)
[2022-03-21] MEDS: POLYETHYLENE GLYCOL (HEALTHYLAX) 3350 17 GM PACKET PO SCH ×2 (10:36→22:25)
[2022-03-21] MEDS: CEFUROXIME AXETIL 500 MG TABLET PO SCH ×2 (10:36→22:16)
[2022-03-21] MEDS: BUDESONIDE/FORMETEROL FUMARATE 160/4.5 mcg INHALER IH SCH ×2 (10:37→22:19)
[2022-03-21] MEDS: LIDOCAINE 5% TOPICAL PATCH TP SCH (10:37)
[2022-03-21] MEDS: PANTOPRAZOLE 40 MG TABLET PO SCH (14:41)
[2022-03-21] MEDS: SODIUM CHLORIDE 1,000 ML IV SCH ×2 (18:34)
[2022-03-21] MEDS: ATORVASTATIN CA 40 MG TABLET (FP) PO SCH (22:16)
[2022-03-21] MEDS: LIDOCAINE PATCH REMOVAL MC SCH (22:17)
[2022-03-21] MEDS: INSULIN (LEVEMIR) 100 UNITS/ML UNITS SQ SCH (22:24)
[2022-03-22] MEDS: INSULIN SLIDING SCALE (NOVOLOG) 1 VIAL SQ SCH ×4 (06:10→22:16)
[2022-03-22] MEDS: ALBUTEROL SO4 2.5/IPRATROPIUM 0.5 INH SOL 3 ML VIAL.NEB. NEB SCH ×3 (07:31→20:16)
[2022-03-22] MEDS: SODIUM CHLORIDE 1,000 ML IV SCH ×2 (10:34→13:32)
[2022-03-22] MEDS: LIDOCAINE 5% TOPICAL PATCH TP SCH ×2 (10:38→11:14)
[2022-03-22] MEDS: BUDESONIDE/FORMETEROL FUMARATE 160/4.5 mcg INHALER IH SCH ×2 (10:39→22:23)
[2022-03-22] MEDS: CEFUROXIME AXETIL 500 MG TABLET PO SCH (10:39)
[2022-03-22] MEDS: ASCORBIC ACID 500 MG TABLET (FP) PO SCH (10:39)
[2022-03-22] MEDS: HEPARIN NA (PORCINE) 5,000 UNITS/ML 1ML VIAL SQ SCH ×3 (10:39→22:16)
[2022-03-22] MEDS: POLYETHYLENE GLYCOL (HEALTHYLAX) 3350 17 GM PACKET PO SCH ×2 (10:39→22:22)
[2022-03-22] MEDS: FERROUS SO4 325 MG TABLET (FP) PO SCH ×3 (10:39→18:00)
[2022-03-22] MEDS: PANTOPRAZOLE 40 MG TABLET PO SCH (10:39)
[2022-03-22 11:02] VITALS: RESP 19
[2022-03-22 15:57] VITALS: BP 150/85; PULSE 92; TEMP 98.6
[2022-03-22] MEDS: INSULIN (LEVEMIR) 100 UNITS/ML UNITS SQ SCH (22:16)
[2022-03-22] MEDS: ATORVASTATIN CA 40 MG TABLET (FP) PO SCH (22:16)
[2022-03-22] MEDS: LIDOCAINE PATCH REMOVAL MC SCH (22:22)
== END 2022-03-23 02:30 | DRG 689 ==
LOC: JER 15:24 → JERBED 18:27 → OBSVTOIN 21:00 → J7W 22:47
PROVIDERS: ADMIT Internal Medicine; ATTEND Nurse Practitioner Acute Care
DX: N39.0 Urinary tract infection, site not specified (principal); G93.41 Metabolic encephalopathy; N17.9 Acute kidney failure, unspecified; K62.5 Hemorrhage of anus and rectum; F03.90 Unspecified dementia, unspecified severity, without behavioral disturbance, psychotic disturbance, mood disturbance, and anxiety; E78.5 Hyperlipidemia, unspecified; J44.9 Chronic obstructive pulmonary disease, unspecified; I12.9 Hypertensive chronic kidney disease with stage 1 through stage 4 chronic kidney disease, or unspecified chronic kidney disease; E11.22 Type 2 diabetes mellitus with diabetic chronic kidney disease; N18.9 Chronic kidney disease, unspecified; D50.9 Iron deficiency anemia, unspecified; M25.561 Pain in right knee; D63.1 Anemia in chronic kidney disease; Z79.4 Long term (current) use of insulin
CPT/HCPCS: 36415; 71045-TC-FY; 73564-TC-RT-FY; 80053; 81003; 82272; 82550; 82962; 83735; 84100; 84484; 85025; 85027; 85610; 85730; 86850; 86900; 86901; 87086; 87186; 93005; 93010; 94640; 97116-GP; 97161-GP; 99285-25; C9803-CS; G0378; J1644; U0003; U0005

== ENCOUNTER 2022-03-25 18:50 | Inpatient (IN) | payer OTHER ==
[2022-03-25 21:42] LABS: VENOUS BASE EXCESS 2.7 mmol/L (-2-2); VENOUS O2 SATURATION 70.7 % (70-80); VENOUS PCO2 58.4 mmHg (38-52); VENOUS PH 7.325 (7.310-7.410)
[2022-03-25 21:44] LABS: HEMATOCRIT 30.7 % (32.4-45.2); HEMOGLOBIN 10.3 GM/dL (10.7-15.3); MCH 29.7 pg (25.7-33.7); MCHC 33.4 g/dl (32.0-36.0); MEAN CELL VOLUME 88.8 fl (80-96); MEAN PLT VOLUME 7.7 fl (7.5-11.1); PLATELET COUNT 410 10^3/uL (134-434); RBC 3.46 M/mm3 (3.60-5.2); RDW 15.6 % (11.6-15.6); WHITE BLOOD COUNT 5.3 K/mm3 (4.0-10.0)
[2022-03-25 21:52] LABS: INR 1.08 (0.83-1.09); PROTHROMBIN TIME (PATIENT) 12.4 SEC (9.7-13.0)
[2022-03-25 22:12] LABS: BLOOD UREA NITROGEN 51.5 mg/dL (7-18); MAGNESIUM 1.7 mg/dL (1.8-2.4)
[2022-03-25 22:15] LABS: CREATININE 1.8 mg/dL (0.55-1.3)
[2022-03-25 22:17] LABS: ANISOCYTOSIS 0; HELMET CELLS 0; HOWELL-JOLLY BODIES 0; MACROCYTOSIS 0; OVALOCYTE 0; ROULEAU 0; SICKELED CELLS 0; TARGET CELLS 0; TEAR DROP CELLS 0; TOT PROT 6.8 g/dl (6.4-8.2); TOXIC GRANULATION 0
[2022-03-25 22:26] LABS: ALBUMIN 3.6 g/dl (3.4-5.0); BILIRUBIN,TOTAL 0.3 mg/dL (0.2-1)
[2022-03-25] MEDS ORDERED: MAGNESIUM 1GM/D5W - 1 GM/100 ML IVPB IVPB ONE (23:14)
[2022-03-26 05:17] VITALS: BMI 24.3
[2022-03-26 10:09] LABS: HEMATOCRIT 31.4 % (32.4-45.2); HEMOGLOBIN 10.4 GM/dL (10.7-15.3); MCH 29.8 pg (25.7-33.7); MCHC 33.3 g/dl (32.0-36.0); MEAN CELL VOLUME 89.5 fl (80-96); MEAN PLT VOLUME 7.4 fl (7.5-11.1); PLATELET COUNT 374 10^3/uL (134-434); RBC 3.51 M/mm3 (3.60-5.2); RDW 15.8 % (11.6-15.6); WHITE BLOOD COUNT 4.6 K/mm3 (4.0-10.0)
[2022-03-26 10:40] LABS: ALBUMIN 3.2 g/dl (3.4-5.0); BILIRUBIN,TOTAL 0.5 mg/dL (0.2-1); BLOOD UREA NITROGEN 52.2 mg/dL (7-18); CALCIUM 8.9 mg/dL (8.5-10.1); CREATININE 1.4 mg/dL (0.55-1.3); TOT PROT 6.2 g/dl (6.4-8.2)
[2022-03-26 10:59] LABS: ANISOCYTOSIS 2+; MACROCYTOSIS 0; OVALOCYTE 2+
[2022-03-26] MEDS ORDERED: ACETAMINOPHEN 325 MG TABLET (FP) PO PRN (11:30)
[2022-03-26] MEDS: INSULIN SLIDING SCALE (NOVOLOG) 1 VIAL SQ SCH ×3 (12:43→21:31)
[2022-03-26] MEDS: HEPARIN NA (PORCINE) 5,000 UNITS/ML 1ML VIAL SQ SCH ×2 (13:16→21:25)
[2022-03-26] MEDS: LIDOCAINE 5% TOPICAL PATCH TP SCH ×2 (13:17→13:36)
[2022-03-26] MEDS: SODIUM CHLORIDE 1,000 ML IV SCH (13:17)
[2022-03-26] MEDS: BUDESONIDE/FORMETEROL FUMARATE 160/4.5 mcg INHALER IH SCH ×2 (13:28→23:38)
[2022-03-26] MEDS: FERROUS GLUCONATE 324 MG TAB (FP) PO SCH ×2 (15:22→23:37)
[2022-03-26 17:13] LABS: EPI CELLS >36 /uL (0-25.1); HYALINE CASTS 2 /uL (0-3.1); PH,URINE 5.5 (5.0-8.0); URINE APPEARANCE CLEAR; URINE BACTERIA 255 /uL (0-1359); URINE BILIRUBIN NEGATIVE (NEGATIVE); URINE COLOR YELLOW; URINE GLUCOSE (UA) 2+ (NEGATIVE); URINE KETONE NEGATIVE (NEGATIVE); URINE LEUK ESTERASE NEGATIVE (NEGATIVE); URINE NITRITE NEGATIVE (NEGATIVE); URINE PROTEIN 3+ (NEGATIVE); URINE RBC 16 /uL (0-23.9); URINE UROBILINOGEN 0.2 mg/dL (0.2-1.0); URINE WBC 12 /uL (0-25.8)
[2022-03-26] MEDS ORDERED: ALBUTEROL SO4 2.5/IPRATROPIUM 0.5 INH SOL 3 ML VIAL.NEB. NEB PRN (17:59)
[2022-03-26] MEDS: INSULIN (LEVEMIR) 100 UNITS/ML UNITS SQ SCH (21:30)
[2022-03-26] MEDS: ATORVASTATIN CA 40 MG TABLET (FP) PO SCH (23:38)
[2022-03-26] MEDS: LIDOCAINE PATCH REMOVAL MC SCH (23:38)
[2022-03-27] MEDS: FERROUS GLUCONATE 324 MG TAB (FP) PO SCH ×3 (06:49→21:15)
[2022-03-27] MEDS: INSULIN SLIDING SCALE (NOVOLOG) 1 VIAL SQ SCH ×4 (06:50→21:12)
[2022-03-27] MEDS: LIDOCAINE 5% TOPICAL PATCH TP SCH (10:07)
[2022-03-27] MEDS: HEPARIN NA (PORCINE) 5,000 UNITS/ML 1ML VIAL SQ SCH ×2 (10:07→21:15)
[2022-03-27] MEDS: amLODIPine BESYLATE 2.5 MG TABLET (FP) PO SCH (10:07)
[2022-03-27] MEDS: BUDESONIDE/FORMETEROL FUMARATE 160/4.5 mcg INHALER IH SCH ×2 (10:08→21:15)
[2022-03-27] MEDS ORDERED: CEFUROXIME AXETIL 500 MG TABLET PO SCH (10:15)
[2022-03-27] MEDS ORDERED: CEFTRIAXONE 1 GM in DEXTROSE 5%-WATER - 50 ML IVPB SCH (10:30)
[2022-03-27] MEDS: SODIUM CHLORIDE 1,000 ML IV SCH (11:30)
[2022-03-27 11:35] LABS: CALCIUM 8.4 mg/dL (8.5-10.1)
[2022-03-27 11:36] LABS: BLOOD UREA NITROGEN 53.1 mg/dL (7-18)
[2022-03-27 11:39] LABS: CREATININE 1.3 mg/dL (0.55-1.3)
[2022-03-27] MEDS: SODIUM ZIRCONIUM CYCLOSILICATE (LOKELMA) 5 GM PACKET PO SCH (16:24)
[2022-03-27] MEDS ORDERED: LORazepam 2 MG/ML SDV VIAL IVPUSH ONE (21:02)
[2022-03-27] MEDS: INSULIN (LEVEMIR) 100 UNITS/ML UNITS SQ SCH (21:13)
[2022-03-27] MEDS: ATORVASTATIN CA 40 MG TABLET (FP) PO SCH (21:15)
[2022-03-27] MEDS: LIDOCAINE PATCH REMOVAL MC SCH (21:15)
[2022-03-27] MEDS: CEFUROXIME AXETIL 250 MG TABLET PO SCH (21:18)
[2022-03-28] MEDS: FERROUS GLUCONATE 324 MG TAB (FP) PO SCH ×3 (06:07→22:37)
[2022-03-28] MEDS: INSULIN SLIDING SCALE (NOVOLOG) 1 VIAL SQ SCH ×4 (06:13→22:43)
[2022-03-28] MEDS: amLODIPine BESYLATE 2.5 MG TABLET (FP) PO SCH (10:50)
[2022-03-28] MEDS: CEFUROXIME AXETIL 250 MG TABLET PO SCH ×2 (10:51→22:36)
[2022-03-28] MEDS: BUDESONIDE/FORMETEROL FUMARATE 160/4.5 mcg INHALER IH SCH ×2 (10:53→22:47)
[2022-03-28] MEDS: HEPARIN NA (PORCINE) 5,000 UNITS/ML 1ML VIAL SQ SCH ×2 (10:57→22:37)
[2022-03-28] MEDS: LIDOCAINE 5% TOPICAL PATCH TP SCH (10:57)
[2022-03-28 12:18] LABS: HEMATOCRIT 28.9 % (32.4-45.2); HEMOGLOBIN 9.8 GM/dL (10.7-15.3); MCH 30.4 pg (25.7-33.7); MCHC 33.8 g/dl (32.0-36.0); MEAN CELL VOLUME 89.9 fl (80-96); MEAN PLT VOLUME 7.4 fl (7.5-11.1); PLATELET COUNT 372 10^3/uL (134-434); RBC 3.22 M/mm3 (3.60-5.2); RDW 16.2 % (11.6-15.6); WHITE BLOOD COUNT 4.4 K/mm3 (4.0-10.0)
[2022-03-28 12:44] LABS: CALCIUM 8.6 mg/dL (8.5-10.1)
[2022-03-28 12:45] LABS: ALBUMIN 3.2 g/dl (3.4-5.0); BLOOD UREA NITROGEN 44.4 mg/dL (7-18)
[2022-03-28 12:48] LABS: CREATININE 1.1 mg/dL (0.55-1.3)
[2022-03-28 12:49] LABS: BILIRUBIN,TOTAL 0.6 mg/dL (0.2-1); TOT PROT 6.2 g/dl (6.4-8.2)
[2022-03-28 13:11] LABS: ANISOCYTOSIS 0; MACROCYTOSIS 0
[2022-03-28] MEDS: SODIUM ZIRCONIUM CYCLOSILICATE (LOKELMA) 5 GM PACKET PO SCH (13:45)
[2022-03-28] MEDS ORDERED: LORazepam 2 MG/ML SDV VIAL IVPB STA (20:03)
[2022-03-28] MEDS ORDERED: LORazepam 2 MG/ML SDV VIAL IM STA (21:05)
[2022-03-28] MEDS: INSULIN (LEVEMIR) 100 UNITS/ML UNITS SQ SCH (22:31)
[2022-03-28] MEDS: ATORVASTATIN CA 40 MG TABLET (FP) PO SCH (22:37)
[2022-03-28] MEDS: LIDOCAINE PATCH REMOVAL MC SCH (22:47)
[2022-03-29] MEDS: INSULIN SLIDING SCALE (NOVOLOG) 1 VIAL SQ SCH ×4 (06:08→22:24)
[2022-03-29] MEDS: FERROUS GLUCONATE 324 MG TAB (FP) PO SCH ×3 (06:08→22:21)
[2022-03-29] MEDS: SODIUM ZIRCONIUM CYCLOSILICATE (LOKELMA) 5 GM PACKET PO SCH (09:52)
[2022-03-29] MEDS: LIDOCAINE 5% TOPICAL PATCH TP SCH (09:52)
[2022-03-29] MEDS: CEFUROXIME AXETIL 250 MG TABLET PO SCH ×2 (09:53→22:22)
[2022-03-29] MEDS: amLODIPine BESYLATE 2.5 MG TABLET (FP) PO SCH (09:53)
[2022-03-29] MEDS: BUDESONIDE/FORMETEROL FUMARATE 160/4.5 mcg INHALER IH SCH ×2 (09:53→22:25)
[2022-03-29] MEDS: HEPARIN NA (PORCINE) 5,000 UNITS/ML 1ML VIAL SQ SCH ×2 (09:53→22:22)
[2022-03-29 10:51] LABS: HEMATOCRIT 31.9 % (32.4-45.2); HEMOGLOBIN 10.3 GM/dL (10.7-15.3); MCH 29.3 pg (25.7-33.7); MCHC 32.2 g/dl (32.0-36.0); MEAN CELL VOLUME 90.9 fl (80-96); MEAN PLT VOLUME 8.9 fl (7.5-11.1); RBC 3.51 M/mm3 (3.60-5.2); RDW 15.8 % (11.6-15.6)
[2022-03-29 10:57] LABS: PLATELET COUNT 304 10^3/uL (134-434)
[2022-03-29 11:16] LABS: ALBUMIN 3.3 g/dl (3.4-5.0); BLOOD UREA NITROGEN 44.3 mg/dL (7-18); CALCIUM 8.9 mg/dL (8.5-10.1)
[2022-03-29 11:18] LABS: CREATININE 1.1 mg/dL (0.55-1.3)
[2022-03-29 11:20] LABS: BILIRUBIN,TOTAL 0.4 mg/dL (0.2-1); TOT PROT 6.3 g/dl (6.4-8.2)
[2022-03-29 12:08] LABS: ANISOCYTOSIS 1+; MACROCYTOSIS 1+; OVALOCYTE 1+
[2022-03-29] MEDS ORDERED: LORazepam 2 MG/ML SDV VIAL IVPUSH ONE (14:44)
[2022-03-29] MEDS: ATORVASTATIN CA 40 MG TABLET (FP) PO SCH (22:22)
[2022-03-29] MEDS: INSULIN (LEVEMIR) 100 UNITS/ML UNITS SQ SCH (22:22)
[2022-03-29] MEDS: LIDOCAINE PATCH REMOVAL MC SCH (22:25)
[2022-03-30] MEDS: INSULIN SLIDING SCALE (NOVOLOG) 1 VIAL SQ SCH ×4 (06:14→22:24)
[2022-03-30] MEDS: FERROUS GLUCONATE 324 MG TAB (FP) PO SCH ×3 (06:14→22:15)
[2022-03-30] MEDS: amLODIPine BESYLATE 5 MG TABLET (FP) PO SCH (10:11)
[2022-03-30] MEDS: CEFUROXIME AXETIL 250 MG TABLET PO SCH ×2 (10:11→22:15)
[2022-03-30] MEDS: SODIUM ZIRCONIUM CYCLOSILICATE (LOKELMA) 5 GM PACKET PO SCH (10:11)
[2022-03-30] MEDS: HEPARIN NA (PORCINE) 5,000 UNITS/ML 1ML VIAL SQ SCH ×2 (10:12→22:15)
[2022-03-30] MEDS: LIDOCAINE 5% TOPICAL PATCH TP SCH (10:12)
[2022-03-30 11:33] LABS: HEMATOCRIT 31.2 % (32.4-45.2); HEMOGLOBIN 10.2 GM/dL (10.7-15.3); MCH 29.5 pg (25.7-33.7); MCHC 32.8 g/dl (32.0-36.0); MEAN CELL VOLUME 89.7 fl (80-96); MEAN PLT VOLUME 7.9 fl (7.5-11.1); PLATELET COUNT 381 10^3/uL (134-434); RBC 3.48 M/mm3 (3.60-5.2); RDW 16.3 % (11.6-15.6); WHITE BLOOD COUNT 4.6 K/mm3 (4.0-10.0)
[2022-03-30 11:43] LABS: ALBUMIN 3.2 g/dl (3.4-5.0); BLOOD UREA NITROGEN 40.7 mg/dL (7-18); MAGNESIUM 1.9 mg/dL (1.8-2.4)
[2022-03-30 11:45] LABS: CALCIUM 8.9 mg/dL (8.5-10.1)
[2022-03-30 11:46] LABS: CREATININE 1.1 mg/dL (0.55-1.3)
[2022-03-30 11:48] LABS: BILIRUBIN,TOTAL 0.6 mg/dL (0.2-1); TOT PROT 6.2 g/dl (6.4-8.2)
[2022-03-30] MEDS: BUDESONIDE/FORMETEROL FUMARATE 160/4.5 mcg INHALER IH SCH ×2 (12:22→22:28)
[2022-03-30] MEDS ORDERED: SODIUM CHLORIDE 0.45% 1,000 ML IV SCH (13:00)
[2022-03-30 13:57] LABS: ANISOCYTOSIS 0; HELMET CELLS 0; HOWELL-JOLLY BODIES 0; MACROCYTOSIS 0; OVALOCYTE 0; ROULEAU 0; SICKELED CELLS 0; TARGET CELLS 0; TEAR DROP CELLS 0; TOXIC GRANULATION 0
[2022-03-30] MEDS: LIDOCAINE PATCH REMOVAL MC SCH (22:15)
[2022-03-30] MEDS: ATORVASTATIN CA 40 MG TABLET (FP) PO SCH (22:15)
[2022-03-30] MEDS: INSULIN (LEVEMIR) 100 UNITS/ML UNITS SQ SCH (22:24)
[2022-03-31] MEDS: INSULIN SLIDING SCALE (NOVOLOG) 1 VIAL SQ SCH ×4 (06:03→23:20)
[2022-03-31] MEDS: FERROUS GLUCONATE 324 MG TAB (FP) PO SCH ×3 (06:10→23:20)
[2022-03-31] MEDS: SODIUM ZIRCONIUM CYCLOSILICATE (LOKELMA) 5 GM PACKET PO SCH (11:25)
[2022-03-31] MEDS: amLODIPine BESYLATE 5 MG TABLET (FP) PO SCH (11:25)
[2022-03-31] MEDS: LIDOCAINE 5% TOPICAL PATCH TP SCH (11:25)
[2022-03-31] MEDS: CEFUROXIME AXETIL 250 MG TABLET PO SCH ×2 (11:26→23:20)
[2022-03-31] MEDS: HEPARIN NA (PORCINE) 5,000 UNITS/ML 1ML VIAL SQ SCH ×3 (11:26→23:20)
[2022-03-31] MEDS: BUDESONIDE/FORMETEROL FUMARATE 160/4.5 mcg INHALER IH SCH ×2 (11:27→23:20)
[2022-03-31 13:03] LABS: EPI CELLS 29 /uL (0-25.1); HYALINE CASTS 1 /uL (0-3.1); PH,URINE 5.5 (5.0-8.0); URINE APPEARANCE CLEAR; URINE BACTERIA 84 /uL (0-1359); URINE BILIRUBIN NEGATIVE (NEGATIVE); URINE COLOR YELLOW; URINE GLUCOSE (UA) 1+ (NEGATIVE); URINE KETONE NEGATIVE (NEGATIVE); URINE LEUK ESTERASE NEGATIVE (NEGATIVE); URINE NITRITE NEGATIVE (NEGATIVE); URINE PROTEIN 3+ (NEGATIVE); URINE RBC 13 /uL (0-23.9); URINE UROBILINOGEN 0.2 mg/dL (0.2-1.0); URINE WBC 14 /uL (0-25.8)
[2022-03-31] MEDS: ATORVASTATIN CA 40 MG TABLET (FP) PO SCH (23:20)
[2022-03-31] MEDS: LIDOCAINE PATCH REMOVAL MC SCH (23:20)
[2022-03-31] MEDS: INSULIN (LEVEMIR) 100 UNITS/ML UNITS SQ SCH (23:20)
[2022-04-01] MEDS: INSULIN SLIDING SCALE (NOVOLOG) 1 VIAL SQ SCH ×4 (06:27→21:53)
[2022-04-01] MEDS: FERROUS GLUCONATE 324 MG TAB (FP) PO SCH ×3 (06:27→21:53)
[2022-04-01] MEDS: amLODIPine BESYLATE 5 MG TABLET (FP) PO SCH (10:26)
[2022-04-01] MEDS: HEPARIN NA (PORCINE) 5,000 UNITS/ML 1ML VIAL SQ SCH ×3 (10:26→21:53)
[2022-04-01] MEDS: CEFUROXIME AXETIL 250 MG TABLET PO SCH ×2 (10:26→21:53)
[2022-04-01] MEDS: LIDOCAINE 5% TOPICAL PATCH TP SCH (10:26)
[2022-04-01] MEDS: BUDESONIDE/FORMETEROL FUMARATE 160/4.5 mcg INHALER IH SCH ×2 (10:39→21:54)
[2022-04-01] MEDS ORDERED: INSULIN (NOVOLOG) ASPART 100 UNITS/ML 10ML VIAL ONE (10:55)
[2022-04-01] MEDS: SODIUM ZIRCONIUM CYCLOSILICATE (LOKELMA) 5 GM PACKET PO SCH (12:42)
[2022-04-01] MEDS: ATORVASTATIN CA 40 MG TABLET (FP) PO SCH (21:52)
[2022-04-01] MEDS: INSULIN (LEVEMIR) 100 UNITS/ML UNITS SQ SCH (21:53)
[2022-04-01] MEDS: LIDOCAINE PATCH REMOVAL MC SCH (21:53)
[2022-04-02] MEDS: FERROUS GLUCONATE 324 MG TAB (FP) PO SCH (06:34)
[2022-04-02] MEDS: INSULIN SLIDING SCALE (NOVOLOG) 1 VIAL SQ SCH ×2 (06:35→11:36)
[2022-04-02] MEDS ORDERED: INSULIN (LEVEMIR) 100 UNITS/ML UNITS SQ ONE (06:52)
[2022-04-02] MEDS ORDERED: INSULIN (NOVOLOG) ASPART 100 UNITS/ML 10ML VIAL ONE ×2 (06:52→11:35)
[2022-04-02 09:43] VITALS: BP 156/86; PULSE 77; RESP 16; TEMP 97.1
[2022-04-02] MEDS: CEFUROXIME AXETIL 250 MG TABLET PO SCH (10:32)
[2022-04-02] MEDS: amLODIPine BESYLATE 5 MG TABLET (FP) PO SCH (10:32)
[2022-04-02] MEDS: LIDOCAINE 5% TOPICAL PATCH TP SCH (10:32)
[2022-04-02] MEDS: BUDESONIDE/FORMETEROL FUMARATE 160/4.5 mcg INHALER IH SCH (10:33)
[2022-04-02] MEDS: SODIUM ZIRCONIUM CYCLOSILICATE (LOKELMA) 5 GM PACKET PO SCH ×3 (10:33→11:37)
[2022-04-02] MEDS: HEPARIN NA (PORCINE) 5,000 UNITS/ML 1ML VIAL SQ SCH ×2 (10:33→10:42)
== END 2022-04-02 12:31 | disposition home or self-care (01) | DRG 690 ==
LOC: JER 18:50 → INTOOBSV 19:52 → JERBED 19:52 → UNDOADMOB 19:52 → J5S 03-26 04:23 → JERBED 03-26 04:23 → J5S 03-26 14:19 → JERBED 03-26 14:19 → J5S 03-28 11:43 → J6S 03-28 23:34 → OBSVTOIN 04-01 13:20
PROVIDERS: ADMIT Internal Medicine; ATTEND Nurse Practitioner Acute Care
DX: N39.0 Urinary tract infection, site not specified (principal); N17.9 Acute kidney failure, unspecified; I13.0 Hypertensive heart and chronic kidney disease with heart failure and stage 1 through stage 4 chronic kidney disease, or unspecified chronic kidney disease; I50.32 Chronic diastolic (congestive) heart failure; F03.90 Unspecified dementia, unspecified severity, without behavioral disturbance, psychotic disturbance, mood disturbance, and anxiety; E78.5 Hyperlipidemia, unspecified; J44.9 Chronic obstructive pulmonary disease, unspecified; I25.10 Atherosclerotic heart disease of native coronary artery without angina pectoris; I25.2 Old myocardial infarction; F32.A Depression, unspecified; E11.319 Type 2 diabetes mellitus with unspecified diabetic retinopathy without macular edema; E11.22 Type 2 diabetes mellitus with diabetic chronic kidney disease; N18.9 Chronic kidney disease, unspecified; D63.8 Anemia in other chronic diseases classified elsewhere; D50.9 Iron deficiency anemia, unspecified; E87.5 Hyperkalemia; Z85.3 Personal history of malignant neoplasm of breast; Z86.73 Personal history of transient ischemic attack (TIA), and cerebral infarction without residual deficits; Z99.81 Dependence on supplemental oxygen; Z96.652 Presence of left artificial knee joint; Z22.39 Carrier of other specified bacterial diseases
CPT/HCPCS: 0241U-QW; 36415; 71046-TC-FY; 80048; 80053; 81003; 82550; 82570; 82803; 82962; 83735; 84132; 84300; 84484; 84540; 85025; 85610; 85730; 87086; 87186; 93005; 93010; 99285-25; G0378; J1644

== ENCOUNTER 2022-04-06 11:53 | Observation (INO) | payer OTHER ==
[2022-04-06 13:50] LABS: BASO % 0.7 % (0-2.0); EOS % 0.9 % (0-4.5); HEMOGLOBIN 10.3 GM/dL (10.7-15.3); LYMPH % 24.1 % (8-40); MCH 29.8 pg (25.7-33.7); MCHC 33.1 g/dl (32.0-36.0); MEAN PLT VOLUME 8.2 fl (7.5-11.1); MONO % 7.7 % (3.8-10.2); NEUT % 66.6 % (42.8-82.8); PLATELET COUNT 312 10^3/uL (134-434); RBC 3.44 M/mm3 (3.60-5.2); RDW 15.8 % (11.6-15.6); WHITE BLOOD COUNT 5.7 K/mm3 (4.0-10.0)
[2022-04-06 14:07] LABS: CHLORIDE 101 mmol/L (98-107); SODIUM 137 mmol/L (136-145)
[2022-04-06 14:09] LABS: CALCIUM 9.1 mg/dL (8.5-10.1)
[2022-04-06 14:10] LABS: ALBUMIN 3.4 g/dl (3.4-5.0); BLOOD UREA NITROGEN 34.2 mg/dL (7-18); CO2 32 mmol/L (21-32); GLUCOSE,RANDOM 189 mg/dL (74-106)
[2022-04-06 14:13] LABS: CREATININE 1.1 mg/dL (0.55-1.3); SGOT/AST 30 U/L (15-37); SGPT/ALT 15 U/L (13-61)
[2022-04-06 14:14] LABS: BILIRUBIN,TOTAL 0.6 mg/dL (0.2-1)
[2022-04-06 14:15] LABS: TOT PROT 6.9 g/dl (6.4-8.2)
[2022-04-06 14:16] LABS: ALK PHOS 56 U/L (45-117)
[2022-04-06 14:24] LABS: ANION GAP 4 MMOL/L (8-16)
[2022-04-06 15:50] LABS: CHLORIDE 103 mmol/L (98-107); SODIUM 137 mmol/L (136-145)
[2022-04-06 15:51] LABS: CALCIUM 8.9 mg/dL (8.5-10.1)
[2022-04-06 15:52] LABS: BLOOD UREA NITROGEN 37.4 mg/dL (7-18); CO2 31 mmol/L (21-32); GLUCOSE,RANDOM 181 mg/dL (74-106); MAGNESIUM 2.3 mg/dL (1.8-2.4)
[2022-04-06 15:55] LABS: CREATININE 1.1 mg/dL (0.55-1.3)
[2022-04-06 16:16] LABS: ANION GAP 3 MMOL/L (8-16)
[2022-04-06] MEDS ORDERED: ALBUTEROL SO4 2.5/IPRATROPIUM 0.5 INH SOL 3 ML VIAL.NEB. NEB PRN (19:00)
[2022-04-06] MEDS ORDERED: PATIENT'S OWN MEDICATION (NON-FORMULARY) (Lidocaine Patch Removal 1 EACH Each) MC SCH (22:00)
[2022-04-06] MEDS ORDERED: POLYETHYLENE GLYCOL (HEALTHYLAX) 3350 17 GM PACKET ONE (22:07)
[2022-04-06] MEDS ORDERED: ATORVASTATIN CA 40 MG TABLET (FP) ONE (22:07)
[2022-04-06] MEDS: POLYETHYLENE GLYCOL (HEALTHYLAX) 3350 17 GM PACKET PO SCH (22:16)
[2022-04-06] MEDS: INSULIN (LEVEMIR) 100 UNITS/ML UNITS SQ SCH (22:16)
[2022-04-06] MEDS: ATORVASTATIN CA 40 MG TABLET (FP) PO SCH (22:16)
[2022-04-06] MEDS: BUDESONIDE/FORMETEROL FUMARATE 160/4.5 mcg INHALER IH SCH (22:16)
[2022-04-06] MEDS: CEFUROXIME AXETIL 250 MG TABLET PO SCH (23:13)
[2022-04-07] MEDS ORDERED: FAMOTIDINE 10 MG TABLET ONE (08:28)
[2022-04-07] MEDS ORDERED: SODIUM ZIRCONIUM CYCLOSILICATE (LOKELMA) 5 GM PACKET ONE (08:28)
[2022-04-07] MEDS ORDERED: FUROSEMIDE 40 MG TABLET (FP) ONE (08:28)
[2022-04-07] MEDS ORDERED: POLYETHYLENE GLYCOL (HEALTHYLAX) 3350 17 GM PACKET ONE ×2 (08:28→23:40)
[2022-04-07] MEDS ORDERED: amLODIPine BESYLATE 5 MG TABLET (FP) ONE (08:28)
[2022-04-07] MEDS ORDERED: ASCORBIC ACID 500 MG TABLET (FP) ONE (08:29)
[2022-04-07 08:30] LABS: ALBUMIN 3.6 g/dl (3.4-5.0); BLOOD UREA NITROGEN 32.9 mg/dL (7-18); CALCIUM 9.2 mg/dL (8.5-10.1)
[2022-04-07 08:36] LABS: BILIRUBIN,TOTAL 0.6 mg/dL (0.2-1); TOT PROT 6.7 g/dl (6.4-8.2)
[2022-04-07] MEDS ORDERED: FAMOTIDINE 20 MG TABLET PO SCH (10:00)
[2022-04-07] MEDS: amLODIPine BESYLATE 5 MG TABLET (FP) PO SCH (10:35)
[2022-04-07] MEDS: FUROSEMIDE 40 MG TABLET (FP) PO SCH (10:35)
[2022-04-07] MEDS: POLYETHYLENE GLYCOL (HEALTHYLAX) 3350 17 GM PACKET PO SCH (10:35)
[2022-04-07] MEDS: ASCORBIC ACID 500 MG TABLET (FP) PO SCH (10:35)
[2022-04-07] MEDS: FAMOTIDINE 10 MG TABLET PO SCH (10:35)
[2022-04-07] MEDS: SODIUM ZIRCONIUM CYCLOSILICATE (LOKELMA) 5 GM PACKET PO SCH ×2 (10:35→10:46)
[2022-04-07] MEDS: BUDESONIDE/FORMETEROL FUMARATE 160/4.5 mcg INHALER IH SCH (12:14)
[2022-04-07] MEDS: CEFUROXIME AXETIL 250 MG TABLET PO SCH ×2 (14:25→23:30)
[2022-04-07] MEDS: INSULIN (LEVEMIR) 100 UNITS/ML UNITS SQ SCH (23:30)
[2022-04-07] MEDS: ATORVASTATIN CA 40 MG TABLET (FP) PO SCH (23:30)
[2022-04-07] MEDS ORDERED: ATORVASTATIN CA 40 MG TABLET (FP) ONE (23:40)
[2022-04-08] MEDS: BUDESONIDE/FORMETEROL FUMARATE 160/4.5 mcg INHALER IH SCH ×3 (00:05→22:16)
[2022-04-08] MEDS: POLYETHYLENE GLYCOL (HEALTHYLAX) 3350 17 GM PACKET PO SCH ×3 (00:05→22:13)
[2022-04-08] MEDS: amLODIPine BESYLATE 5 MG TABLET (FP) PO SCH ×2 (05:44→10:04)
[2022-04-08] MEDS: SODIUM ZIRCONIUM CYCLOSILICATE (LOKELMA) 5 GM PACKET PO SCH (10:03)
[2022-04-08] MEDS: FAMOTIDINE 10 MG TABLET PO SCH (10:04)
[2022-04-08] MEDS: ASCORBIC ACID 500 MG TABLET (FP) PO SCH (10:04)
[2022-04-08] MEDS: FUROSEMIDE 40 MG TABLET (FP) PO SCH (10:05)
[2022-04-08] MEDS: CEFUROXIME AXETIL 250 MG TABLET PO SCH ×2 (10:37→22:15)
[2022-04-08] MEDS: ATORVASTATIN CA 40 MG TABLET (FP) PO SCH (22:13)
[2022-04-08] MEDS: INSULIN (LEVEMIR) 100 UNITS/ML UNITS SQ SCH (22:14)
[2022-04-09] MEDS: POLYETHYLENE GLYCOL (HEALTHYLAX) 3350 17 GM PACKET PO SCH ×2 (09:04→21:21)
[2022-04-09] MEDS: ACETAMINOPHEN 325 MG TABLET (FP) PO PRN (09:05)
[2022-04-09] MEDS: CEFUROXIME AXETIL 250 MG TABLET PO SCH (09:05)
[2022-04-09] MEDS: FUROSEMIDE 40 MG TABLET (FP) PO SCH (09:05)
[2022-04-09] MEDS: amLODIPine BESYLATE 5 MG TABLET (FP) PO SCH (09:05)
[2022-04-09] MEDS: ASCORBIC ACID 500 MG TABLET (FP) PO SCH (09:06)
[2022-04-09] MEDS: FAMOTIDINE 10 MG TABLET PO SCH (09:06)
[2022-04-09] MEDS: BUDESONIDE/FORMETEROL FUMARATE 160/4.5 mcg INHALER IH SCH ×2 (10:35→21:23)
[2022-04-09] MEDS ORDERED: LORazepam 0.5 MG TABLET PO ONE ×2 (12:46→18:45)
[2022-04-09 13:01] LABS: EPI CELLS 27 /uL (0-25.1); HYALINE CASTS 2 /uL (0-3.1); PH,URINE 5.5 (5.0-8.0); URINE APPEARANCE CLEAR; URINE BACTERIA 16 /uL (0-1359); URINE BILIRUBIN NEGATIVE (NEGATIVE); URINE COLOR YELLOW; URINE GLUCOSE (UA) TRACE (NEGATIVE); URINE KETONE NEGATIVE (NEGATIVE); URINE LEUK ESTERASE NEGATIVE (NEGATIVE); URINE NITRITE NEGATIVE (NEGATIVE); URINE PROTEIN 3+ (NEGATIVE); URINE RBC 13 /uL (0-23.9); URINE UROBILINOGEN 0.2 mg/dL (0.2-1.0); URINE WBC 7 /uL (0-25.8)
[2022-04-09] MEDS: SODIUM ZIRCONIUM CYCLOSILICATE (LOKELMA) 5 GM PACKET PO SCH (13:24)
[2022-04-09] MEDS ORDERED: INSULIN (NOVOLOG) ASPART 100 UNITS/ML 10ML VIAL ONE (21:05)
[2022-04-09] MEDS: INSULIN (LEVEMIR) 100 UNITS/ML UNITS SQ SCH (21:22)
[2022-04-09] MEDS: HEPARIN NA (PORCINE) 5,000 UNITS/ML 1ML VIAL SQ SCH (21:22)
[2022-04-09] MEDS: ATORVASTATIN CA 40 MG TABLET (FP) PO SCH (21:22)
[2022-04-09] MEDS: INSULIN SLIDING SCALE (NOVOLOG) 1 VIAL SQ SCH (21:27)
[2022-04-10] MEDS: INSULIN SLIDING SCALE (NOVOLOG) 1 VIAL SQ SCH ×4 (06:16→21:55)
[2022-04-10] MEDS: FUROSEMIDE 40 MG TABLET (FP) PO SCH (10:12)
[2022-04-10] MEDS: amLODIPine BESYLATE 5 MG TABLET (FP) PO SCH (10:12)
[2022-04-10] MEDS: ASCORBIC ACID 500 MG TABLET (FP) PO SCH (10:12)
[2022-04-10] MEDS: FAMOTIDINE 10 MG TABLET PO SCH (10:12)
[2022-04-10] MEDS: HEPARIN NA (PORCINE) 5,000 UNITS/ML 1ML VIAL SQ SCH ×2 (10:17→21:48)
[2022-04-10] MEDS: POLYETHYLENE GLYCOL (HEALTHYLAX) 3350 17 GM PACKET PO SCH ×2 (10:19→21:47)
[2022-04-10] MEDS: BUDESONIDE/FORMETEROL FUMARATE 160/4.5 mcg INHALER IH SCH ×2 (10:27→21:48)
[2022-04-10 11:32] LABS: BASO % 0.7 % (0-2.0); EOS % 0.4 % (0-4.5); HEMATOCRIT 35.1 % (32.4-45.2); HEMOGLOBIN 11.6 GM/dL (10.7-15.3); LYMPH % 17.9 % (8-40); MCH 29.6 pg (25.7-33.7); MEAN CELL VOLUME 89.8 fl (80-96); MEAN PLT VOLUME 8.2 fl (7.5-11.1); MONO % 7.5 % (3.8-10.2); NEUT % 73.5 % (42.8-82.8); PLATELET COUNT 298 10^3/uL (134-434); RBC 3.91 M/mm3 (3.60-5.2); RDW 15.5 % (11.6-15.6); WHITE BLOOD COUNT 7.2 K/mm3 (4.0-10.0)
[2022-04-10 12:14] LABS: CALCIUM 9.7 mg/dL (8.5-10.1)
[2022-04-10 12:15] LABS: ALBUMIN 3.7 g/dl (3.4-5.0); BLOOD UREA NITROGEN 56.8 mg/dL (7-18); MAGNESIUM 2.3 mg/dL (1.8-2.4)
[2022-04-10 12:18] LABS: CREATININE 1.5 mg/dL (0.55-1.3)
[2022-04-10 12:20] LABS: BILIRUBIN,TOTAL 0.5 mg/dL (0.2-1); TOT PROT 6.9 g/dl (6.4-8.2)
[2022-04-10] MEDS: SODIUM ZIRCONIUM CYCLOSILICATE (LOKELMA) 5 GM PACKET PO SCH (13:03)
[2022-04-10] MEDS: ACETAMINOPHEN 325 MG TABLET (FP) PO PRN (15:39)
[2022-04-10] MEDS ORDERED: SODIUM CHLORIDE 1,000 ML IV SCH (16:30)
[2022-04-10] MEDS: OLANZapine 2.5 MG TABLET PO SCH (21:48)
[2022-04-10] MEDS: ATORVASTATIN CA 40 MG TABLET (FP) PO SCH (21:48)
[2022-04-10] MEDS: INSULIN (LEVEMIR) 100 UNITS/ML UNITS SQ SCH (21:49)
[2022-04-11] MEDS: INSULIN SLIDING SCALE (NOVOLOG) 1 VIAL SQ SCH ×4 (06:00→21:27)
[2022-04-11] MEDS: HEPARIN NA (PORCINE) 5,000 UNITS/ML 1ML VIAL SQ SCH ×2 (09:33→21:26)
[2022-04-11] MEDS: ASCORBIC ACID 500 MG TABLET (FP) PO SCH (09:33)
[2022-04-11] MEDS: FAMOTIDINE 10 MG TABLET PO SCH (09:33)
[2022-04-11] MEDS: amLODIPine BESYLATE 5 MG TABLET (FP) PO SCH (09:33)
[2022-04-11] MEDS: POLYETHYLENE GLYCOL (HEALTHYLAX) 3350 17 GM PACKET PO SCH ×2 (09:34→21:26)
[2022-04-11] MEDS: BUDESONIDE/FORMETEROL FUMARATE 160/4.5 mcg INHALER IH SCH ×2 (09:34→21:28)
[2022-04-11] MEDS: SODIUM ZIRCONIUM CYCLOSILICATE (LOKELMA) 5 GM PACKET PO SCH (14:33)
[2022-04-11 18:35] LABS: EPI CELLS 16 /uL (0-25.1); HYALINE CASTS 0 /uL (0-3.1); URINE APPEARANCE CLEAR; URINE BACTERIA 268 /uL (0-1359); URINE BILIRUBIN NEGATIVE (NEGATIVE); URINE COLOR YELLOW; URINE GLUCOSE (UA) 1+ (NEGATIVE); URINE KETONE NEGATIVE (NEGATIVE); URINE LEUK ESTERASE NEGATIVE (NEGATIVE); URINE NITRITE NEGATIVE (NEGATIVE); URINE PROTEIN 3+ (NEGATIVE); URINE RBC 13 /uL (0-23.9); URINE UROBILINOGEN 0.2 mg/dL (0.2-1.0); URINE WBC 8 /uL (0-25.8)
[2022-04-11] MEDS: INSULIN (LEVEMIR) 100 UNITS/ML UNITS SQ SCH (21:26)
[2022-04-11] MEDS: ATORVASTATIN CA 40 MG TABLET (FP) PO SCH (21:27)
[2022-04-11] MEDS: OLANZapine 2.5 MG TABLET PO SCH (21:27)
[2022-04-12] MEDS: INSULIN SLIDING SCALE (NOVOLOG) 1 VIAL SQ SCH ×4 (06:25→22:30)
[2022-04-12] MEDS: POLYETHYLENE GLYCOL (HEALTHYLAX) 3350 17 GM PACKET PO SCH ×2 (10:13→21:52)
[2022-04-12] MEDS: HEPARIN NA (PORCINE) 5,000 UNITS/ML 1ML VIAL SQ SCH ×2 (10:14→21:42)
[2022-04-12] MEDS: BUDESONIDE/FORMETEROL FUMARATE 160/4.5 mcg INHALER IH SCH ×3 (10:15→21:45)
[2022-04-12] MEDS: amLODIPine BESYLATE 5 MG TABLET (FP) PO SCH (10:15)
[2022-04-12] MEDS: FAMOTIDINE 10 MG TABLET PO SCH (10:15)
[2022-04-12] MEDS: ASCORBIC ACID 500 MG TABLET (FP) PO SCH (10:15)
[2022-04-12] MEDS: SODIUM ZIRCONIUM CYCLOSILICATE (LOKELMA) 5 GM PACKET PO SCH (13:15)
[2022-04-12] MEDS ORDERED: LINEZOLID 100 MG/5 ML BTL (RESTRICTED TO ID) PO SCH (14:00)
[2022-04-12] MEDS: LORazepam 2 MG/ML SDV VIAL IM PRN (16:38)
[2022-04-12] MEDS ORDERED: INSULIN (NOVOLOG) ASPART 100 UNITS/ML 10ML VIAL ONE (21:04)
[2022-04-12] MEDS: INSULIN (LEVEMIR) 100 UNITS/ML UNITS SQ SCH (21:43)
[2022-04-12] MEDS: OLANZapine 2.5 MG TABLET PO SCH (21:45)
[2022-04-12] MEDS: ATORVASTATIN CA 40 MG TABLET (FP) PO SCH (22:05)
[2022-04-13] MEDS: INSULIN SLIDING SCALE (NOVOLOG) 1 VIAL SQ SCH ×4 (06:11→22:52)
[2022-04-13] MEDS: FAMOTIDINE 10 MG TABLET PO SCH (10:33)
[2022-04-13] MEDS: amLODIPine BESYLATE 5 MG TABLET (FP) PO SCH (10:34)
[2022-04-13] MEDS: POLYETHYLENE GLYCOL (HEALTHYLAX) 3350 17 GM PACKET PO SCH ×2 (10:34→23:16)
[2022-04-13] MEDS: HEPARIN NA (PORCINE) 5,000 UNITS/ML 1ML VIAL SQ SCH ×2 (10:34→22:52)
[2022-04-13] MEDS: BUDESONIDE/FORMETEROL FUMARATE 160/4.5 mcg INHALER IH SCH ×2 (10:34→22:53)
[2022-04-13] MEDS: ASCORBIC ACID 500 MG TABLET (FP) PO SCH (10:34)
[2022-04-13] MEDS ORDERED: INSULIN (NOVOLOG) ASPART 100 UNITS/ML 10ML VIAL ONE (12:04)
[2022-04-13] MEDS: SODIUM ZIRCONIUM CYCLOSILICATE (LOKELMA) 5 GM PACKET PO SCH (15:00)
[2022-04-13] MEDS: LORazepam 2 MG/ML SDV VIAL IM PRN (15:30)
[2022-04-13] MEDS: MEMANTINE HCL 5 MG TABLET (UD) PO SCH (22:52)
[2022-04-13] MEDS: ATORVASTATIN CA 40 MG TABLET (FP) PO SCH (22:52)
[2022-04-13] MEDS: INSULIN (LEVEMIR) 100 UNITS/ML UNITS SQ SCH (22:52)
[2022-04-14] MEDS: INSULIN SLIDING SCALE (NOVOLOG) 1 VIAL SQ SCH ×4 (06:55→22:30)
[2022-04-14] MEDS: MEMANTINE HCL 5 MG TABLET (UD) PO SCH ×2 (10:24→22:29)
[2022-04-14] MEDS: QUEtiapine FUMARATE 25 MG TABLET PO SCH (10:24)
[2022-04-14] MEDS: ASCORBIC ACID 500 MG TABLET (FP) PO SCH (10:24)
[2022-04-14] MEDS: POLYETHYLENE GLYCOL (HEALTHYLAX) 3350 17 GM PACKET PO SCH ×2 (10:24→22:30)
[2022-04-14] MEDS: amLODIPine BESYLATE 5 MG TABLET (FP) PO SCH (10:24)
[2022-04-14] MEDS: FAMOTIDINE 10 MG TABLET PO SCH (10:24)
[2022-04-14] MEDS: BUDESONIDE/FORMETEROL FUMARATE 160/4.5 mcg INHALER IH SCH ×2 (10:25→22:30)
[2022-04-14] MEDS: HEPARIN NA (PORCINE) 5,000 UNITS/ML 1ML VIAL SQ SCH ×2 (10:25→22:29)
[2022-04-14] MEDS ORDERED: INSULIN (NOVOLOG) ASPART 100 UNITS/ML 10ML VIAL ONE (11:11)
[2022-04-14] MEDS: SODIUM ZIRCONIUM CYCLOSILICATE (LOKELMA) 5 GM PACKET PO SCH (14:13)
[2022-04-14 16:57] LABS: BASO % 0.2 % (0-2.0); EOS % 1.1 % (0-4.5); HEMATOCRIT 36.2 % (32.4-45.2); HEMOGLOBIN 11.9 GM/dL (10.7-15.3); LYMPH % 17.7 % (8-40); MCH 29.9 pg (25.7-33.7); MCHC 32.7 g/dl (32.0-36.0); MEAN CELL VOLUME 91.3 fl (80-96); MEAN PLT VOLUME 8.5 fl (7.5-11.1); MONO % 6.6 % (3.8-10.2); NEUT % 74.4 % (42.8-82.8); PLATELET COUNT 284 10^3/uL (134-434); RBC 3.96 M/mm3 (3.60-5.2); RDW 15.7 % (11.6-15.6); WHITE BLOOD COUNT 7.3 K/mm3 (4.0-10.0)
[2022-04-14 17:24] LABS: BLOOD UREA NITROGEN 56.6 mg/dL (7-18)
[2022-04-14 17:25] LABS: ALBUMIN 3.5 g/dl (3.4-5.0); MAGNESIUM 2.2 mg/dL (1.8-2.4)
[2022-04-14 17:27] LABS: CREATININE 1.1 mg/dL (0.55-1.3)
[2022-04-14 17:29] LABS: BILIRUBIN,TOTAL 0.4 mg/dL (0.2-1); TOT PROT 6.8 g/dl (6.4-8.2)
[2022-04-14] MEDS: ACETAMINOPHEN 325 MG TABLET (FP) PO PRN (18:12)
[2022-04-14] MEDS: ATORVASTATIN CA 40 MG TABLET (FP) PO SCH (22:29)
[2022-04-15] MEDS: INSULIN SLIDING SCALE (NOVOLOG) 1 VIAL SQ SCH ×4 (06:27→21:57)
[2022-04-15] MEDS: HEPARIN NA (PORCINE) 5,000 UNITS/ML 1ML VIAL SQ SCH ×2 (09:26→21:57)
[2022-04-15] MEDS: amLODIPine BESYLATE 5 MG TABLET (FP) PO SCH (09:26)
[2022-04-15] MEDS: MEMANTINE HCL 5 MG TABLET (UD) PO SCH ×2 (09:26→21:57)
[2022-04-15] MEDS: FAMOTIDINE 10 MG TABLET PO SCH (09:26)
[2022-04-15] MEDS: POLYETHYLENE GLYCOL (HEALTHYLAX) 3350 17 GM PACKET PO SCH ×2 (09:26→21:57)
[2022-04-15] MEDS: ASCORBIC ACID 500 MG TABLET (FP) PO SCH (09:26)
[2022-04-15] MEDS: BUDESONIDE/FORMETEROL FUMARATE 160/4.5 mcg INHALER IH SCH ×2 (09:27→21:58)
[2022-04-15] MEDS: QUEtiapine FUMARATE 25 MG TABLET PO SCH (09:27)
[2022-04-15] MEDS: ACETAMINOPHEN 325 MG TABLET (FP) PO PRN ×2 (09:36→16:41)
[2022-04-15] MEDS ORDERED: INSULIN (LEVEMIR) 100 UNITS/ML UNITS SQ ONE ×2 (11:25→11:26)
[2022-04-15] MEDS ORDERED: INSULIN (NOVOLOG) ASPART 100 UNITS/ML 10ML VIAL ONE (11:26)
[2022-04-15] MEDS: SODIUM ZIRCONIUM CYCLOSILICATE (LOKELMA) 5 GM PACKET PO SCH (14:51)
[2022-04-15] MEDS: ATORVASTATIN CA 40 MG TABLET (FP) PO SCH (21:57)
[2022-04-16] MEDS: INSULIN SLIDING SCALE (NOVOLOG) 1 VIAL SQ SCH ×5 (06:27→23:23)
[2022-04-16] MEDS: HEPARIN NA (PORCINE) 5,000 UNITS/ML 1ML VIAL SQ SCH ×2 (09:45→22:54)
[2022-04-16] MEDS: FAMOTIDINE 10 MG TABLET PO SCH (09:45)
[2022-04-16] MEDS: ASCORBIC ACID 500 MG TABLET (FP) PO SCH (09:45)
[2022-04-16] MEDS: MEMANTINE HCL 5 MG TABLET (UD) PO SCH ×2 (09:45→22:54)
[2022-04-16] MEDS: POLYETHYLENE GLYCOL (HEALTHYLAX) 3350 17 GM PACKET PO SCH ×2 (09:45→22:54)
[2022-04-16] MEDS: amLODIPine BESYLATE 5 MG TABLET (FP) PO SCH (09:45)
[2022-04-16] MEDS: QUEtiapine FUMARATE 25 MG TABLET PO SCH (09:46)
[2022-04-16] MEDS: BUDESONIDE/FORMETEROL FUMARATE 160/4.5 mcg INHALER IH SCH ×2 (09:55→22:55)
[2022-04-16] MEDS ORDERED: INSULIN (NOVOLOG) ASPART 100 UNITS/ML 10ML VIAL ONE ×2 (10:57→16:39)
[2022-04-16] MEDS ORDERED: SODIUM CHLORIDE 1,000 ML IV SCH (13:00)
[2022-04-16] MEDS: SODIUM ZIRCONIUM CYCLOSILICATE (LOKELMA) 5 GM PACKET PO SCH (13:24)
[2022-04-16 16:21] LABS: BASO % 0.4 % (0-2.0); EOS % 1.2 % (0-4.5); HEMATOCRIT 33.4 % (32.4-45.2); HEMOGLOBIN 10.6 GM/dL (10.7-15.3); LYMPH % 21.1 % (8-40); MCHC 31.8 g/dl (32.0-36.0); MEAN CELL VOLUME 91.1 fl (80-96); MEAN PLT VOLUME 8.8 fl (7.5-11.1); MONO % 7.9 % (3.8-10.2); NEUT % 69.4 % (42.8-82.8); PLATELET COUNT 276 10^3/uL (134-434); RBC 3.67 M/mm3 (3.60-5.2); RDW 15.7 % (11.6-15.6); WHITE BLOOD COUNT 6.9 K/mm3 (4.0-10.0)
[2022-04-16 16:38] LABS: ALBUMIN 2.9 g/dl (3.4-5.0); BLOOD UREA NITROGEN 62.4 mg/dL (7-18); CALCIUM 8.4 mg/dL (8.5-10.1); MAGNESIUM 2.1 mg/dL (1.8-2.4)
[2022-04-16 16:41] LABS: CREATININE 1.4 mg/dL (0.55-1.3)
[2022-04-16 16:43] LABS: BILIRUBIN,TOTAL 0.4 mg/dL (0.2-1)
[2022-04-16] MEDS: ATORVASTATIN CA 40 MG TABLET (FP) PO SCH (22:54)
[2022-04-17] MEDS ORDERED: INSULIN (NOVOLOG) ASPART 100 UNITS/ML 10ML VIAL ONE (07:01)
[2022-04-17] MEDS: INSULIN SLIDING SCALE (NOVOLOG) 1 VIAL SQ SCH ×4 (07:03→21:19)
[2022-04-17 09:15] LABS: BASO % 0.7 % (0-2.0); EOS % 2.5 % (0-4.5); HEMATOCRIT 31.8 % (32.4-45.2); HEMOGLOBIN 10.2 GM/dL (10.7-15.3); LYMPH % 23.1 % (8-40); MCH 29.1 pg (25.7-33.7); MCHC 32.2 g/dl (32.0-36.0); MEAN CELL VOLUME 90.4 fl (80-96); MEAN PLT VOLUME 8.4 fl (7.5-11.1); MONO % 8.7 % (3.8-10.2); PLATELET COUNT 270 10^3/uL (134-434); RBC 3.51 M/mm3 (3.60-5.2); RDW 15.5 % (11.6-15.6); WHITE BLOOD COUNT 5.2 K/mm3 (4.0-10.0)
[2022-04-17 09:32] LABS: CALCIUM 8.6 mg/dL (8.5-10.1)
[2022-04-17 09:33] LABS: ALBUMIN 2.9 g/dl (3.4-5.0); BLOOD UREA NITROGEN 58.1 mg/dL (7-18)
[2022-04-17 09:36] LABS: CREATININE 1.3 mg/dL (0.55-1.3)
[2022-04-17 09:37] LABS: BILIRUBIN,TOTAL 0.5 mg/dL (0.2-1); TOT PROT 5.6 g/dl (6.4-8.2)
[2022-04-17] MEDS: POLYETHYLENE GLYCOL (HEALTHYLAX) 3350 17 GM PACKET PO SCH ×2 (09:54→21:18)
[2022-04-17] MEDS: MEMANTINE HCL 5 MG TABLET (UD) PO SCH ×2 (09:54→21:19)
[2022-04-17] MEDS: FAMOTIDINE 10 MG TABLET PO SCH (09:54)
[2022-04-17] MEDS: QUEtiapine FUMARATE 25 MG TABLET PO SCH (09:54)
[2022-04-17] MEDS: HEPARIN NA (PORCINE) 5,000 UNITS/ML 1ML VIAL SQ SCH ×2 (09:54→21:18)
[2022-04-17] MEDS: ASCORBIC ACID 500 MG TABLET (FP) PO SCH (09:54)
[2022-04-17] MEDS: amLODIPine BESYLATE 5 MG TABLET (FP) PO SCH (09:55)
[2022-04-17] MEDS: ACETAMINOPHEN 325 MG TABLET (FP) PO PRN (10:15)
[2022-04-17] MEDS: BUDESONIDE/FORMETEROL FUMARATE 160/4.5 mcg INHALER IH SCH ×2 (10:15→21:18)
[2022-04-17] MEDS: SODIUM ZIRCONIUM CYCLOSILICATE (LOKELMA) 5 GM PACKET PO SCH (13:08)
[2022-04-17] MEDS: ATORVASTATIN CA 40 MG TABLET (FP) PO SCH (21:19)
[2022-04-18] MEDS: INSULIN SLIDING SCALE (NOVOLOG) 1 VIAL SQ SCH ×4 (06:16→21:37)
[2022-04-18] MEDS ORDERED: INSULIN (NOVOLOG) ASPART 100 UNITS/ML 10ML VIAL ONE ×2 (06:20→11:50)
[2022-04-18] MEDS: HEPARIN NA (PORCINE) 5,000 UNITS/ML 1ML VIAL SQ SCH ×3 (10:08→21:35)
[2022-04-18] MEDS: POLYETHYLENE GLYCOL (HEALTHYLAX) 3350 17 GM PACKET PO SCH ×2 (10:10→21:34)
[2022-04-18] MEDS: MEMANTINE HCL 5 MG TABLET (UD) PO SCH ×2 (10:10→21:36)
[2022-04-18] MEDS: amLODIPine BESYLATE 5 MG TABLET (FP) PO SCH (10:10)
[2022-04-18] MEDS: ASCORBIC ACID 500 MG TABLET (FP) PO SCH (10:10)
[2022-04-18] MEDS: FAMOTIDINE 10 MG TABLET PO SCH (10:10)
[2022-04-18] MEDS: QUEtiapine FUMARATE 25 MG TABLET PO SCH (10:10)
[2022-04-18] MEDS: BUDESONIDE/FORMETEROL FUMARATE 160/4.5 mcg INHALER IH SCH ×2 (10:12→21:47)
[2022-04-18] MEDS: SODIUM ZIRCONIUM CYCLOSILICATE (LOKELMA) 5 GM PACKET PO SCH (13:43)
[2022-04-18] MEDS: ATORVASTATIN CA 40 MG TABLET (FP) PO SCH (21:35)
[2022-04-19] MEDS: INSULIN SLIDING SCALE (NOVOLOG) 1 VIAL SQ SCH ×4 (06:17→22:10)
[2022-04-19] MEDS: ASCORBIC ACID 500 MG TABLET (FP) PO SCH (09:39)
[2022-04-19] MEDS: BUDESONIDE/FORMETEROL FUMARATE 160/4.5 mcg INHALER IH SCH ×2 (09:39→22:00)
[2022-04-19] MEDS: FAMOTIDINE 10 MG TABLET PO SCH (09:39)
[2022-04-19] MEDS: amLODIPine BESYLATE 5 MG TABLET (FP) PO SCH (09:39)
[2022-04-19] MEDS: POLYETHYLENE GLYCOL (HEALTHYLAX) 3350 17 GM PACKET PO SCH ×2 (09:39→22:16)
[2022-04-19] MEDS: QUEtiapine FUMARATE 25 MG TABLET PO SCH (09:39)
[2022-04-19] MEDS: HEPARIN NA (PORCINE) 5,000 UNITS/ML 1ML VIAL SQ SCH ×2 (09:40→22:09)
[2022-04-19] MEDS: MEMANTINE HCL 5 MG TABLET (UD) PO SCH ×2 (09:40→22:10)
[2022-04-19] MEDS: ACETAMINOPHEN 325 MG TABLET (FP) PO PRN (09:51)
[2022-04-19 11:50] LABS: CALCIUM 8.7 mg/dL (8.5-10.1)
[2022-04-19 11:51] LABS: BLOOD UREA NITROGEN 60.1 mg/dL (7-18)
[2022-04-19 11:54] LABS: CREATININE 1.4 mg/dL (0.55-1.3)
[2022-04-19] MEDS: SODIUM ZIRCONIUM CYCLOSILICATE (LOKELMA) 5 GM PACKET PO SCH (13:42)
[2022-04-19] MEDS ORDERED: INSULIN (NOVOLOG) ASPART 100 UNITS/ML 10ML VIAL ONE (17:09)
[2022-04-19] MEDS: ATORVASTATIN CA 40 MG TABLET (FP) PO SCH (22:10)
[2022-04-20] MEDS: INSULIN SLIDING SCALE (NOVOLOG) 1 VIAL SQ SCH ×4 (06:04→21:47)
[2022-04-20] MEDS: QUEtiapine FUMARATE 25 MG TABLET PO SCH (10:10)
[2022-04-20] MEDS: MEMANTINE HCL 5 MG TABLET (UD) PO SCH ×2 (10:10→21:46)
[2022-04-20] MEDS: amLODIPine BESYLATE 5 MG TABLET (FP) PO SCH (10:10)
[2022-04-20] MEDS: FAMOTIDINE 10 MG TABLET PO SCH (10:10)
[2022-04-20] MEDS: HEPARIN NA (PORCINE) 5,000 UNITS/ML 1ML VIAL SQ SCH ×2 (10:10→21:46)
[2022-04-20] MEDS: ASCORBIC ACID 500 MG TABLET (FP) PO SCH (10:10)
[2022-04-20] MEDS: POLYETHYLENE GLYCOL (HEALTHYLAX) 3350 17 GM PACKET PO SCH ×2 (10:11→21:47)
[2022-04-20] MEDS: BUDESONIDE/FORMETEROL FUMARATE 160/4.5 mcg INHALER IH SCH ×2 (10:19→21:49)
[2022-04-20] MEDS: SODIUM ZIRCONIUM CYCLOSILICATE (LOKELMA) 5 GM PACKET PO SCH (14:28)
[2022-04-20] MEDS ORDERED: INSULIN (NOVOLOG) ASPART 100 UNITS/ML 10ML VIAL ONE (21:13)
[2022-04-20] MEDS: ATORVASTATIN CA 40 MG TABLET (FP) PO SCH (21:46)
[2022-04-20 22:20] VITALS: BMI 24.7
[2022-04-21] MEDS: INSULIN SLIDING SCALE (NOVOLOG) 1 VIAL SQ SCH ×4 (08:09→21:02)
[2022-04-21] MEDS: MEMANTINE HCL 5 MG TABLET (UD) PO SCH ×2 (09:41→21:09)
[2022-04-21] MEDS: amLODIPine BESYLATE 5 MG TABLET (FP) PO SCH (09:41)
[2022-04-21] MEDS: FAMOTIDINE 10 MG TABLET PO SCH (09:41)
[2022-04-21] MEDS: QUEtiapine FUMARATE 25 MG TABLET PO SCH (09:41)
[2022-04-21] MEDS: ASCORBIC ACID 500 MG TABLET (FP) PO SCH (09:41)
[2022-04-21] MEDS: HEPARIN NA (PORCINE) 5,000 UNITS/ML 1ML VIAL SQ SCH ×2 (09:42→21:09)
[2022-04-21] MEDS: BUDESONIDE/FORMETEROL FUMARATE 160/4.5 mcg INHALER IH SCH ×2 (09:42→21:02)
[2022-04-21] MEDS: POLYETHYLENE GLYCOL (HEALTHYLAX) 3350 17 GM PACKET PO SCH ×2 (09:42→21:09)
[2022-04-21] MEDS: SODIUM ZIRCONIUM CYCLOSILICATE (LOKELMA) 5 GM PACKET PO SCH (13:20)
[2022-04-21] MEDS: ATORVASTATIN CA 40 MG TABLET (FP) PO SCH (21:09)
[2022-04-21] MEDS: ACETAMINOPHEN 325 MG TABLET (FP) PO PRN (21:17)
[2022-04-22] MEDS: INSULIN SLIDING SCALE (NOVOLOG) 1 VIAL SQ SCH ×4 (06:43→21:52)
[2022-04-22] MEDS: QUEtiapine FUMARATE 25 MG TABLET PO SCH (09:43)
[2022-04-22] MEDS: FAMOTIDINE 10 MG TABLET PO SCH (09:43)
[2022-04-22] MEDS: ASCORBIC ACID 500 MG TABLET (FP) PO SCH (09:43)
[2022-04-22] MEDS: amLODIPine BESYLATE 5 MG TABLET (FP) PO SCH (09:43)
[2022-04-22] MEDS: MEMANTINE HCL 5 MG TABLET (UD) PO SCH ×2 (09:44→21:51)
[2022-04-22] MEDS: HEPARIN NA (PORCINE) 5,000 UNITS/ML 1ML VIAL SQ SCH ×2 (09:44→21:50)
[2022-04-22] MEDS: BUDESONIDE/FORMETEROL FUMARATE 160/4.5 mcg INHALER IH SCH ×2 (09:52→21:56)
[2022-04-22] MEDS: POLYETHYLENE GLYCOL (HEALTHYLAX) 3350 17 GM PACKET PO SCH ×2 (09:54→21:50)
[2022-04-22 10:46] LABS: CALCIUM 9.5 mg/dL (8.5-10.1)
[2022-04-22 10:47] LABS: BLOOD UREA NITROGEN 60.2 mg/dL (7-18)
[2022-04-22 10:50] LABS: CREATININE 1.4 mg/dL (0.55-1.3)
[2022-04-22] MEDS: HYDROCHLOROTHIAZIDE 25 MG TABLET (FP) PO SCH (11:32)
[2022-04-22] MEDS: SODIUM ZIRCONIUM CYCLOSILICATE (LOKELMA) 5 GM PACKET PO SCH (13:13)
[2022-04-22] MEDS ORDERED: INSULIN (NOVOLOG) ASPART 100 UNITS/ML 10ML VIAL ONE (21:04)
[2022-04-22] MEDS: ATORVASTATIN CA 40 MG TABLET (FP) PO SCH (21:50)
[2022-04-22] MEDS: ACETAMINOPHEN 325 MG TABLET (FP) PO PRN (21:51)
[2022-04-23] MEDS: INSULIN SLIDING SCALE (NOVOLOG) 1 VIAL SQ SCH ×4 (06:55→21:20)
[2022-04-23] MEDS: MEMANTINE HCL 5 MG TABLET (UD) PO SCH ×2 (09:49→21:20)
[2022-04-23] MEDS: QUEtiapine FUMARATE 25 MG TABLET PO SCH (09:49)
[2022-04-23] MEDS: HEPARIN NA (PORCINE) 5,000 UNITS/ML 1ML VIAL SQ SCH (09:49)
[2022-04-23] MEDS: ASCORBIC ACID 500 MG TABLET (FP) PO SCH (09:49)
[2022-04-23] MEDS: FAMOTIDINE 10 MG TABLET PO SCH (09:49)
[2022-04-23] MEDS: amLODIPine BESYLATE 5 MG TABLET (FP) PO SCH (09:49)
[2022-04-23] MEDS: HYDROCHLOROTHIAZIDE 25 MG TABLET (FP) PO SCH (09:49)
[2022-04-23] MEDS: POLYETHYLENE GLYCOL (HEALTHYLAX) 3350 17 GM PACKET PO SCH ×2 (09:50→21:19)
[2022-04-23] MEDS: BUDESONIDE/FORMETEROL FUMARATE 160/4.5 mcg INHALER IH SCH ×2 (09:51→21:20)
[2022-04-23] MEDS: SODIUM ZIRCONIUM CYCLOSILICATE (LOKELMA) 5 GM PACKET PO SCH (14:09)
[2022-04-23] MEDS: ATORVASTATIN CA 40 MG TABLET (FP) PO SCH (21:20)
[2022-04-23] MEDS: ACETAMINOPHEN 325 MG TABLET (FP) PO PRN (21:22)
[2022-04-24] MEDS: INSULIN SLIDING SCALE (NOVOLOG) 1 VIAL SQ SCH ×4 (06:39→21:00)
[2022-04-24] MEDS: QUEtiapine FUMARATE 25 MG TABLET PO SCH (09:43)
[2022-04-24] MEDS: HYDROCHLOROTHIAZIDE 25 MG TABLET (FP) PO SCH (09:43)
[2022-04-24] MEDS: FAMOTIDINE 10 MG TABLET PO SCH (09:44)
[2022-04-24] MEDS: BUDESONIDE/FORMETEROL FUMARATE 160/4.5 mcg INHALER IH SCH ×2 (09:44→21:02)
[2022-04-24] MEDS: MEMANTINE HCL 5 MG TABLET (UD) PO SCH ×2 (09:44→21:01)
[2022-04-24] MEDS: POLYETHYLENE GLYCOL (HEALTHYLAX) 3350 17 GM PACKET PO SCH ×2 (09:44→21:01)
[2022-04-24] MEDS: ASCORBIC ACID 500 MG TABLET (FP) PO SCH (09:44)
[2022-04-24] MEDS: amLODIPine BESYLATE 5 MG TABLET (FP) PO SCH (09:44)
[2022-04-24] MEDS: SODIUM ZIRCONIUM CYCLOSILICATE (LOKELMA) 5 GM PACKET PO SCH (14:42)
[2022-04-24] MEDS: ATORVASTATIN CA 40 MG TABLET (FP) PO SCH (21:01)
[2022-04-25] MEDS: INSULIN SLIDING SCALE (NOVOLOG) 1 VIAL SQ SCH ×5 (06:31→21:14)
[2022-04-25] MEDS: FAMOTIDINE 10 MG TABLET PO SCH (09:09)
[2022-04-25] MEDS: MEMANTINE HCL 5 MG TABLET (UD) PO SCH ×2 (09:09→21:08)
[2022-04-25] MEDS: QUEtiapine FUMARATE 25 MG TABLET PO SCH (09:10)
[2022-04-25] MEDS: ASCORBIC ACID 500 MG TABLET (FP) PO SCH (09:10)
[2022-04-25] MEDS: BUDESONIDE/FORMETEROL FUMARATE 160/4.5 mcg INHALER IH SCH ×2 (09:10→21:26)
[2022-04-25] MEDS: POLYETHYLENE GLYCOL (HEALTHYLAX) 3350 17 GM PACKET PO SCH ×3 (09:10→21:25)
[2022-04-25] MEDS: amLODIPine BESYLATE 5 MG TABLET (FP) PO SCH (09:10)
[2022-04-25] MEDS: HYDROCHLOROTHIAZIDE 25 MG TABLET (FP) PO SCH (09:10)
[2022-04-25] MEDS: SODIUM ZIRCONIUM CYCLOSILICATE (LOKELMA) 5 GM PACKET PO SCH (14:08)
[2022-04-25] MEDS: ATORVASTATIN CA 40 MG TABLET (FP) PO SCH (21:08)
[2022-04-26] MEDS: INSULIN SLIDING SCALE (NOVOLOG) 1 VIAL SQ SCH ×4 (06:15→21:18)
[2022-04-26] MEDS: QUEtiapine FUMARATE 25 MG TABLET PO SCH (09:35)
[2022-04-26] MEDS: FAMOTIDINE 10 MG TABLET PO SCH (09:36)
[2022-04-26] MEDS: MEMANTINE HCL 5 MG TABLET (UD) PO SCH ×2 (09:36→21:18)
[2022-04-26] MEDS: BUDESONIDE/FORMETEROL FUMARATE 160/4.5 mcg INHALER IH SCH ×2 (09:36→21:18)
[2022-04-26] MEDS: HYDROCHLOROTHIAZIDE 25 MG TABLET (FP) PO SCH (09:36)
[2022-04-26] MEDS: POLYETHYLENE GLYCOL (HEALTHYLAX) 3350 17 GM PACKET PO SCH ×2 (09:36→21:18)
[2022-04-26] MEDS: amLODIPine BESYLATE 5 MG TABLET (FP) PO SCH (09:36)
[2022-04-26] MEDS: ASCORBIC ACID 500 MG TABLET (FP) PO SCH (09:36)
[2022-04-26] MEDS: SODIUM ZIRCONIUM CYCLOSILICATE (LOKELMA) 5 GM PACKET PO SCH (13:52)
[2022-04-26 14:25] VITALS: RESP 18
[2022-04-26] MEDS: ATORVASTATIN CA 40 MG TABLET (FP) PO SCH (21:17)
[2022-04-27] MEDS: INSULIN SLIDING SCALE (NOVOLOG) 1 VIAL SQ SCH ×4 (06:11→22:34)
[2022-04-27] MEDS: MEMANTINE HCL 5 MG TABLET (UD) PO SCH ×2 (10:02→22:29)
[2022-04-27] MEDS: POLYETHYLENE GLYCOL (HEALTHYLAX) 3350 17 GM PACKET PO SCH ×3 (10:02→22:34)
[2022-04-27] MEDS: FAMOTIDINE 10 MG TABLET PO SCH (10:02)
[2022-04-27] MEDS: FUROSEMIDE 20 MG TABLET (FP) PO SCH (10:02)
[2022-04-27] MEDS: ASCORBIC ACID 500 MG TABLET (FP) PO SCH (10:02)
[2022-04-27] MEDS: QUEtiapine FUMARATE 25 MG TABLET PO SCH (10:02)
[2022-04-27] MEDS: amLODIPine BESYLATE 5 MG TABLET (FP) PO SCH (10:02)
[2022-04-27] MEDS: BUDESONIDE/FORMETEROL FUMARATE 160/4.5 mcg INHALER IH SCH ×2 (10:03→22:32)
[2022-04-27] MEDS: SODIUM ZIRCONIUM CYCLOSILICATE (LOKELMA) 5 GM PACKET PO SCH (15:36)
[2022-04-27] MEDS: ATORVASTATIN CA 40 MG TABLET (FP) PO SCH (22:29)
[2022-04-28] MEDS: INSULIN SLIDING SCALE (NOVOLOG) 1 VIAL SQ SCH ×4 (06:00→22:13)
[2022-04-28] MEDS: QUEtiapine FUMARATE 25 MG TABLET PO SCH (11:08)
[2022-04-28] MEDS: FAMOTIDINE 10 MG TABLET PO SCH (11:09)
[2022-04-28] MEDS: MEMANTINE HCL 5 MG TABLET (UD) PO SCH ×2 (11:09→22:10)
[2022-04-28] MEDS: FUROSEMIDE 20 MG TABLET (FP) PO SCH (11:10)
[2022-04-28] MEDS: ASCORBIC ACID 500 MG TABLET (FP) PO SCH (11:10)
[2022-04-28] MEDS: amLODIPine BESYLATE 5 MG TABLET (FP) PO SCH (11:10)
[2022-04-28] MEDS: POLYETHYLENE GLYCOL (HEALTHYLAX) 3350 17 GM PACKET PO SCH ×2 (11:14→22:11)
[2022-04-28] MEDS: BUDESONIDE/FORMETEROL FUMARATE 160/4.5 mcg INHALER IH SCH ×2 (11:14→22:14)
[2022-04-28] MEDS: SODIUM ZIRCONIUM CYCLOSILICATE (LOKELMA) 5 GM PACKET PO SCH (14:00)
[2022-04-28] MEDS: ATORVASTATIN CA 40 MG TABLET (FP) PO SCH (22:10)
[2022-04-28] MEDS: INSULIN (LEVEMIR) 100 UNITS/ML UNITS SQ SCH (22:13)
[2022-04-29] MEDS: INSULIN SLIDING SCALE (NOVOLOG) 1 VIAL SQ SCH ×4 (06:33→21:49)
[2022-04-29] MEDS: POLYETHYLENE GLYCOL (HEALTHYLAX) 3350 17 GM PACKET PO SCH ×2 (09:36→21:36)
[2022-04-29] MEDS: MEMANTINE HCL 5 MG TABLET (UD) PO SCH ×2 (09:36→21:36)
[2022-04-29] MEDS: FAMOTIDINE 10 MG TABLET PO SCH (09:36)
[2022-04-29] MEDS: amLODIPine BESYLATE 5 MG TABLET (FP) PO SCH (09:37)
[2022-04-29] MEDS: FUROSEMIDE 20 MG TABLET (FP) PO SCH (09:37)
[2022-04-29] MEDS: ASCORBIC ACID 500 MG TABLET (FP) PO SCH (09:37)
[2022-04-29] MEDS: QUEtiapine FUMARATE 25 MG TABLET PO SCH (09:37)
[2022-04-29] MEDS: BUDESONIDE/FORMETEROL FUMARATE 160/4.5 mcg INHALER IH SCH ×2 (09:42→21:45)
[2022-04-29] MEDS: SODIUM ZIRCONIUM CYCLOSILICATE (LOKELMA) 5 GM PACKET PO SCH (13:33)
[2022-04-29] MEDS: ATORVASTATIN CA 40 MG TABLET (FP) PO SCH (21:36)
[2022-04-29] MEDS: INSULIN (LEVEMIR) 100 UNITS/ML UNITS SQ SCH (21:49)
[2022-04-30] MEDS: INSULIN SLIDING SCALE (NOVOLOG) 1 VIAL SQ SCH ×4 (06:45→22:04)
[2022-04-30] MEDS: QUEtiapine FUMARATE 25 MG TABLET PO SCH (09:15)
[2022-04-30] MEDS: FUROSEMIDE 20 MG TABLET (FP) PO SCH (09:15)
[2022-04-30] MEDS: POLYETHYLENE GLYCOL (HEALTHYLAX) 3350 17 GM PACKET PO SCH ×2 (09:15→21:59)
[2022-04-30] MEDS: amLODIPine BESYLATE 5 MG TABLET (FP) PO SCH (09:16)
[2022-04-30] MEDS: FAMOTIDINE 10 MG TABLET PO SCH (09:16)
[2022-04-30] MEDS: ASCORBIC ACID 500 MG TABLET (FP) PO SCH (09:16)
[2022-04-30] MEDS: BUDESONIDE/FORMETEROL FUMARATE 160/4.5 mcg INHALER IH SCH ×2 (09:16→22:04)
[2022-04-30] MEDS: MEMANTINE HCL 5 MG TABLET (UD) PO SCH ×2 (09:16→21:58)
[2022-04-30] MEDS: HEPARIN NA (PORCINE) 5,000 UNITS/ML 1ML VIAL SQ SCH ×2 (14:46→21:59)
[2022-04-30] MEDS: SODIUM ZIRCONIUM CYCLOSILICATE (LOKELMA) 5 GM PACKET PO SCH (14:48)
[2022-04-30] MEDS: ATORVASTATIN CA 40 MG TABLET (FP) PO SCH (21:58)
[2022-04-30] MEDS: INSULIN (LEVEMIR) 100 UNITS/ML UNITS SQ SCH (21:58)
[2022-05-01] MEDS: INSULIN SLIDING SCALE (NOVOLOG) 1 VIAL SQ SCH ×4 (06:08→21:24)
[2022-05-01] MEDS: FAMOTIDINE 10 MG TABLET PO SCH (09:22)
[2022-05-01] MEDS: ASCORBIC ACID 500 MG TABLET (FP) PO SCH (09:22)
[2022-05-01] MEDS: amLODIPine BESYLATE 5 MG TABLET (FP) PO SCH (09:22)
[2022-05-01] MEDS: HEPARIN NA (PORCINE) 5,000 UNITS/ML 1ML VIAL SQ SCH ×2 (09:22→21:13)
[2022-05-01] MEDS: QUEtiapine FUMARATE 25 MG TABLET PO SCH (09:22)
[2022-05-01] MEDS: FUROSEMIDE 20 MG TABLET (FP) PO SCH (09:22)
[2022-05-01] MEDS: BUDESONIDE/FORMETEROL FUMARATE 160/4.5 mcg INHALER IH SCH ×2 (09:22→21:23)
[2022-05-01] MEDS: POLYETHYLENE GLYCOL (HEALTHYLAX) 3350 17 GM PACKET PO SCH ×2 (09:22→21:13)
[2022-05-01] MEDS: MEMANTINE HCL 5 MG TABLET (UD) PO SCH ×2 (09:22→21:13)
[2022-05-01] MEDS: SODIUM ZIRCONIUM CYCLOSILICATE (LOKELMA) 5 GM PACKET PO SCH (13:11)
[2022-05-01 14:22] LABS: BLOOD UREA NITROGEN 59.6 mg/dL (7-18); CALCIUM 8.8 mg/dL (8.5-10.1)
[2022-05-01 14:26] LABS: CREATININE 1.4 mg/dL (0.55-1.3)
[2022-05-01] MEDS: ATORVASTATIN CA 40 MG TABLET (FP) PO SCH (21:13)
[2022-05-01] MEDS: INSULIN (LEVEMIR) 100 UNITS/ML UNITS SQ SCH (21:14)
[2022-05-02] MEDS: INSULIN SLIDING SCALE (NOVOLOG) 1 VIAL SQ SCH ×3 (06:03→16:41)
[2022-05-02] MEDS: QUEtiapine FUMARATE 25 MG TABLET PO SCH (09:16)
[2022-05-02] MEDS: POLYETHYLENE GLYCOL (HEALTHYLAX) 3350 17 GM PACKET PO SCH (09:16)
[2022-05-02] MEDS: HEPARIN NA (PORCINE) 5,000 UNITS/ML 1ML VIAL SQ SCH (09:16)
[2022-05-02] MEDS: amLODIPine BESYLATE 5 MG TABLET (FP) PO SCH (09:16)
[2022-05-02] MEDS: FAMOTIDINE 10 MG TABLET PO SCH (09:16)
[2022-05-02] MEDS: BUDESONIDE/FORMETEROL FUMARATE 160/4.5 mcg INHALER IH SCH (09:16)
[2022-05-02] MEDS: MEMANTINE HCL 5 MG TABLET (UD) PO SCH (09:16)
[2022-05-02] MEDS: FUROSEMIDE 20 MG TABLET (FP) PO SCH (09:16)
[2022-05-02] MEDS: ASCORBIC ACID 500 MG TABLET (FP) PO SCH (09:16)
[2022-05-02] MEDS: SODIUM ZIRCONIUM CYCLOSILICATE (LOKELMA) 5 GM PACKET PO SCH (14:05)
[2022-05-02 14:33] VITALS: BP 138/82; PULSE 93; TEMP 98.4
== END 2022-05-02 18:28 ==
LOC: JER 11:53 → JERBED 12:36 → J6S 04-08 00:29
PROVIDERS: ADMIT Internal Medicine; ATTEND Nurse Practitioner Acute Care
PROC: 3E023GC Introduction of Other Therapeutic Substance into Muscle, Percutaneous Approach (ICD-10-PCS; principal; 2022-04-06)
PROC: 3E013VG Introduction of Insulin into Subcutaneous Tissue, Percutaneous Approach (ICD-10-PCS; 2022-04-06)
PROC: 3E023NZ Introduction of Analgesics, Hypnotics, Sedatives into Muscle, Percutaneous Approach (ICD-10-PCS; 2022-04-06)
PROC: 3E0337Z Introduction of Electrolytic and Water Balance Substance into Peripheral Vein, Percutaneous Approach (ICD-10-PCS; 2022-04-06)
DX: G93.41 Metabolic encephalopathy (principal); I25.10 Atherosclerotic heart disease of native coronary artery without angina pectoris; I11.9 Hypertensive heart disease without heart failure; E11.9 Type 2 diabetes mellitus without complications; E78.5 Hyperlipidemia, unspecified; N17.9 Acute kidney failure, unspecified; R45.1 Restlessness and agitation; F32.A Depression, unspecified; J44.1 Chronic obstructive pulmonary disease with (acute) exacerbation; Z29.8 Encounter for other specified prophylactic measures; D64.9 Anemia, unspecified; J44.9 Chronic obstructive pulmonary disease, unspecified; F03.90 Unspecified dementia, unspecified severity, without behavioral disturbance, psychotic disturbance, mood disturbance, and anxiety; Z95.5 Presence of coronary angioplasty implant and graft; Z86.16 Personal history of COVID-19; Z22.39 Carrier of other specified bacterial diseases; Z91.14 Patient's other noncompliance with medication regimen; I25.2 Old myocardial infarction; Z86.73 Personal history of transient ischemic attack (TIA), and cerebral infarction without residual deficits; Z99.81 Dependence on supplemental oxygen; Z87.891 Personal history of nicotine dependence; D50.9 Iron deficiency anemia, unspecified
CPT/HCPCS: 0241U-QW; 36415; 70450-TC; 71045-TC-FY; 80048; 80053; 81003; 82962; 83735; 84132; 84443; 84484; 85025; 87086; 87186; 93005; 93010; 94010; 96365; 96372; 97116-GP; 97162-GP; 99285-25; C9803-CS; G0378; J1644; U0003; U0005

== ENCOUNTER 2022-06-28 13:01 | Inpatient (IN) | payer OTHER ==
[2022-06-28] MEDS ORDERED: SODIUM CHLORIDE 1,000 ML IV SCH (14:15)
[2022-06-28 15:13] LABS: BASO % 0.3 % (0-2.0); EOS % 0.1 % (0-4.5); HEMATOCRIT 28.7 % (32.4-45.2); HEMOGLOBIN 9.2 GM/dL (10.7-15.3); LYMPH % 4.9 % (8-40); MCH 28.6 pg (25.7-33.7); MEAN CELL VOLUME 89.6 fl (80-96); MEAN PLT VOLUME 7.9 fl (7.5-11.1); MONO % 6.7 % (3.8-10.2); PLATELET COUNT 351 10^3/uL (134-434); RDW 15.2 % (11.6-15.6); WHITE BLOOD COUNT 17.4 K/mm3 (4.0-10.0)
[2022-06-28 15:14] LABS: VENOUS BASE EXCESS -4.3 mmol/L (-2-2); VENOUS O2 SATURATION 87.6 % (70-80); VENOUS PCO2 45.5 mmHg (38-52); VENOUS PH 7.298 (7.310-7.410)
[2022-06-28 15:23] LABS: INR 1.12 (0.83-1.09); PROTHROMBIN TIME (PATIENT) 12.9 SEC (9.7-13.0)
[2022-06-28 15:25] LABS: ACTIVATED PTT 27.7 SECONDS (25.2-36.5)
[2022-06-28 15:39] LABS: ALBUMIN 2.6 g/dl (3.4-5.0); BLOOD UREA NITROGEN 41.8 mg/dL (7-18); CALCIUM 8.6 mg/dL (8.5-10.1)
[2022-06-28 15:41] LABS: CREATININE 1.7 mg/dL (0.55-1.3)
[2022-06-28 15:43] LABS: TOT PROT 6.1 g/dl (6.4-8.2)
[2022-06-28 15:44] LABS: BILIRUBIN,TOTAL 0.3 mg/dL (0.2-1)
[2022-06-28] MEDS ORDERED: SODIUM CHLORIDE 1,000 ML IV STA (16:46)
[2022-06-28 17:31] LABS: CALCIUM 7.6 mg/dL (8.5-10.1)
[2022-06-28 17:33] LABS: BLOOD UREA NITROGEN 40.4 mg/dL (7-18)
[2022-06-28 17:36] LABS: CREATININE 1.6 mg/dL (0.55-1.3)
[2022-06-28] MEDS ORDERED: POTASSIUM CHLORIDE ORAL LIQUID 20 MEQ/15 ML PO ONE (18:03)
[2022-06-28] MEDS ORDERED: POTASSIUM CHLORIDE ORAL LIQUID 20 MEQ/15 ML ONE (18:10)
[2022-06-28 19:50] LABS: EPI CELLS 31 /uL (0-25.1); HYALINE CASTS 4 /uL (0-3.1); URINE APPEARANCE CLEAR; URINE BACTERIA 1 /uL (0-1359); URINE BILIRUBIN NEGATIVE (NEGATIVE); URINE COLOR YELLOW; URINE GLUCOSE (UA) TRACE (NEGATIVE); URINE KETONE TRACE (NEGATIVE); URINE LEUK ESTERASE NEGATIVE (NEGATIVE); URINE NITRITE NEGATIVE (NEGATIVE); URINE PROTEIN 2+ (NEGATIVE); URINE RBC 12 /uL (0-23.9); URINE UROBILINOGEN 0.2 mg/dL (0.2-1.0); URINE WBC 21 /uL (0-25.8)
[2022-06-28 21:15] LABS: YEAST NONE SEEN (NEGATIVE)
[2022-06-28] MEDS ORDERED: CEFTRIAXONE 1 GM in DEXTROSE 5%-WATER - 50 ML IVPB SCH (23:15)
[2022-06-28] MEDS ORDERED: AZITHROMYCIN IVPB 500 MG/250 ML BAG IVPB ONE (23:30)
[2022-06-28] MEDS: SODIUM CHLORIDE 1,000 ML IV SCH (23:50)
[2022-06-29] MEDS ORDERED: LINEZOLID 600 MG PREMIX BAG 600 MG in PREMIX 300 IVPB SCH (00:15)
[2022-06-29] MEDS: PIPERACILLIN/TAZOB 3.375 GM 3.375 GM in DEXTROSE 5%-WATER - 50 ML IVPB SCH ×5 (00:29→23:00)
[2022-06-29] MEDS ORDERED: MAGNESIUM SULF 50% (8.12 MEQ/2 ML-1 GM VIAL) IVPB ONE ×2 (00:45→17:52)
[2022-06-29] MEDS ORDERED: LINEZOLID 600 MG PREMIX BAG 600 MG/300 ML BAG IVPB SCH (01:00)
[2022-06-29] MEDS: KCL 10 MEQ IVPB 10 MEQ/100 ML INFUS.BAG IVPB SCH ×3 (01:35→03:50)
[2022-06-29 03:40] LABS: RETICULOCYTES 1.82 % (0.5-1.5)
[2022-06-29 04:24] LABS: ERYTHROCYTE SEDIMENTATION RATE 90 mm/hr (0-30)
[2022-06-29 05:22] LABS: MAGNESIUM 1.5 mg/dL (1.8-2.4)
[2022-06-29 05:26] LABS: PHOSPHOROUS 3.8 mg/dL (2.5-4.9)
[2022-06-29] MEDS: HEPARIN NA (PORCINE) 5,000 UNITS/ML 1ML VIAL SQ SCH ×3 (05:51→22:33)
[2022-06-29] MEDS: INSULIN SLIDING SCALE (NOVOLOG) 1 VIAL SQ SCH ×4 (06:03→22:40)
[2022-06-29] MEDS ORDERED: AZITHROMYCIN IVPB 250 MG in DEXTROSE 5%-WATER - 250 ML IVPB SCH (10:00)
[2022-06-29 10:11] LABS: HEMATOCRIT 27.7 % (32.4-45.2); HEMOGLOBIN 8.7 GM/dL (10.7-15.3); MCH 28.3 pg (25.7-33.7); MCHC 31.6 g/dl (32.0-36.0); MEAN CELL VOLUME 89.7 fl (80-96); PLATELET COUNT 373 10^3/uL (134-434); RBC 3.08 M/mm3 (3.60-5.2); RDW 15.5 % (11.6-15.6); RETICULOCYTES 1.86 % (0.5-1.5)
[2022-06-29] MEDS: FAMOTIDINE 20 MG TABLET PO SCH (10:23)
[2022-06-29] MEDS: DORZOLAMIDE 2% HCL OPHTHALMIC SOLUTION 10 ML BOTTLE OU SCH (10:24)
[2022-06-29] MEDS: MEMANTINE HCL 5 MG TABLET (UD) PO SCH ×2 (10:24→23:00)
[2022-06-29 10:34] LABS: ALBUMIN 2.2 g/dl (3.4-5.0); BLOOD UREA NITROGEN 35.5 mg/dL (7-18)
[2022-06-29 10:36] LABS: CALCIUM 8.2 mg/dL (8.5-10.1); MAGNESIUM 1.6 mg/dL (1.8-2.4)
[2022-06-29 10:37] LABS: CREATININE 1.6 mg/dL (0.55-1.3)
[2022-06-29 10:39] LABS: BILIRUBIN,TOTAL 0.2 mg/dL (0.2-1); PHOSPHOROUS 2.8 mg/dL (2.5-4.9); TOT PROT 5.5 g/dl (6.4-8.2)
[2022-06-29] MEDS: MAGNESIUM OXIDE 400 MG TABLET (FP) PO SCH ×3 (12:56→22:33)
[2022-06-29] MEDS ORDERED: VANCOMYCIN/WATER FOR INJ (PEG) 1,000 MG/200 ML BAG IVPB ONE (17:15)
[2022-06-29] MEDS ORDERED: ACETAMINOPHEN 1000 MG/100 ML BAG IVPB PRN (17:53)
[2022-06-29] MEDS: QUEtiapine FUMARATE 25 MG TABLET PO SCH (22:34)
[2022-06-29] MEDS: ROSUVASTATIN CA 5 MG TABLET PO SCH (22:34)
[2022-06-29] MEDS: LATANOPROST 0.005% OPHTH SOLN 2.5ML BOTTLE OU SCH (22:35)
[2022-06-30] MEDS: HEPARIN NA (PORCINE) 5,000 UNITS/ML 1ML VIAL SQ SCH ×3 (06:01→22:48)
[2022-06-30] MEDS: SODIUM CHLORIDE 1,000 ML IV SCH ×2 (06:01→06:02)
[2022-06-30] MEDS: PIPERACILLIN/TAZOB 3.375 GM 3.375 GM in DEXTROSE 5%-WATER - 50 ML IVPB SCH ×4 (06:01→22:48)
[2022-06-30] MEDS: INSULIN SLIDING SCALE (NOVOLOG) 1 VIAL SQ SCH ×4 (06:10→22:56)
[2022-06-30 09:44] LABS: HEMATOCRIT 25.4 % (32.4-45.2); HEMOGLOBIN 8.3 GM/dL (10.7-15.3); MCH 28.8 pg (25.7-33.7); MCHC 32.6 g/dl (32.0-36.0); MEAN CELL VOLUME 88.5 fl (80-96); MEAN PLT VOLUME 7.6 fl (7.5-11.1); PLATELET COUNT 355 10^3/uL (134-434); RBC 2.87 M/mm3 (3.60-5.2); RDW 15.4 % (11.6-15.6)
[2022-06-30 10:04] LABS: CALCIUM 8.1 mg/dL (8.5-10.1)
[2022-06-30 10:05] LABS: BLOOD UREA NITROGEN 38.5 mg/dL (7-18)
[2022-06-30 10:08] LABS: CREATININE 2.3 mg/dL (0.55-1.3); MAGNESIUM 2.4 mg/dL (1.8-2.4)
[2022-06-30 10:10] LABS: BILIRUBIN,TOTAL 0.2 mg/dL (0.2-1); TOT PROT 5.1 g/dl (6.4-8.2)
[2022-06-30 10:53] LABS: ANISOCYTOSIS 2+
[2022-06-30] MEDS: MEMANTINE HCL 5 MG TABLET (UD) PO SCH ×2 (11:32→22:49)
[2022-06-30] MEDS: FAMOTIDINE 20 MG TABLET PO SCH (11:33)
[2022-06-30] MEDS: DORZOLAMIDE 2% HCL OPHTHALMIC SOLUTION 10 ML BOTTLE OU SCH (11:34)
[2022-06-30] MEDS ORDERED: POTASSIUM CHLORIDE TABS 20 MEQ TABLET.ER (FP) PO ONE (12:00)
[2022-06-30] MEDS: FLUTICASONE/UMECLIDIN/VILANTER(200-62.5-25 TRELEGY ELLIPTA) INAHLER IH SCH (13:51)
[2022-06-30] MEDS ORDERED: MAG HYDROX/AL HYDROX/SIMETH 30 ML UNIT-DOSE CUP PO ONE ×2 (19:40→22:45)
[2022-06-30] MEDS: QUEtiapine FUMARATE 25 MG TABLET PO SCH (22:49)
[2022-06-30] MEDS: ROSUVASTATIN CA 5 MG TABLET PO SCH (22:49)
[2022-06-30] MEDS: LATANOPROST 0.005% OPHTH SOLN 2.5ML BOTTLE OU SCH (22:56)
[2022-07-01] MEDS: HEPARIN NA (PORCINE) 5,000 UNITS/ML 1ML VIAL SQ SCH ×3 (05:58→21:47)
[2022-07-01] MEDS: PIPERACILLIN/TAZOB 3.375 GM 3.375 GM in DEXTROSE 5%-WATER - 50 ML IVPB SCH ×4 (05:58→22:00)
[2022-07-01] MEDS: SODIUM CHLORIDE 1,000 ML IV SCH (05:58)
[2022-07-01] MEDS: INSULIN SLIDING SCALE (NOVOLOG) 1 VIAL SQ SCH ×4 (06:44→21:53)
[2022-07-01] MEDS ORDERED: POTASSIUM CHLORIDE TABS 20 MEQ TABLET.ER (FP) PO ONE (08:00)
[2022-07-01] MEDS: MEMANTINE HCL 5 MG TABLET (UD) PO SCH ×2 (10:12→21:47)
[2022-07-01] MEDS: FAMOTIDINE 20 MG TABLET PO SCH (10:13)
[2022-07-01] MEDS: FLUTICASONE/UMECLIDIN/VILANTER(200-62.5-25 TRELEGY ELLIPTA) INAHLER IH SCH (10:13)
[2022-07-01] MEDS: DORZOLAMIDE 2% HCL OPHTHALMIC SOLUTION 10 ML BOTTLE OU SCH (10:15)
[2022-07-01 12:15] LABS: ALBUMIN 2.1 g/dl (3.4-5.0); CALCIUM 8.5 mg/dL (8.5-10.1); MAGNESIUM 2.5 mg/dL (1.8-2.4)
[2022-07-01 12:16] LABS: BLOOD UREA NITROGEN 40.5 mg/dL (7-18)
[2022-07-01 12:18] LABS: CREATININE 2.9 mg/dL (0.55-1.3)
[2022-07-01 12:19] LABS: HEMATOCRIT 29.3 % (32.4-45.2); HEMOGLOBIN 9.3 GM/dL (10.7-15.3); MCH 28.2 pg (25.7-33.7); MCHC 31.9 g/dl (32.0-36.0); MEAN CELL VOLUME 88.6 fl (80-96); MEAN PLT VOLUME 7.8 fl (7.5-11.1); PLATELET COUNT 418 10^3/uL (134-434); RBC 3.31 M/mm3 (3.60-5.2); RDW 15.7 % (11.6-15.6); WHITE BLOOD COUNT 10.7 K/mm3 (4.0-10.0)
[2022-07-01 12:20] LABS: BILIRUBIN,TOTAL 0.2 mg/dL (0.2-1); TOT PROT 5.5 g/dl (6.4-8.2)
[2022-07-01 13:16] LABS: ANISOCYTOSIS 0; HELMET CELLS 0; HOWELL-JOLLY BODIES 0; MACROCYTOSIS 0; OVALOCYTE 0; ROULEAU 0; SICKELED CELLS 0; TARGET CELLS 0; TEAR DROP CELLS 0; TOXIC GRANULATION 0
[2022-07-01] MEDS: QUEtiapine FUMARATE 25 MG TABLET PO SCH (21:47)
[2022-07-01] MEDS: ROSUVASTATIN CA 5 MG TABLET PO SCH (21:47)
[2022-07-01] MEDS: LATANOPROST 0.005% OPHTH SOLN 2.5ML BOTTLE OU SCH (21:51)
[2022-07-02] MEDS: PIPERACILLIN/TAZOB 3.375 GM 3.375 GM in DEXTROSE 5%-WATER - 50 ML IVPB SCH ×2 (05:38→11:03)
[2022-07-02] MEDS: HEPARIN NA (PORCINE) 5,000 UNITS/ML 1ML VIAL SQ SCH ×3 (05:39→21:30)
[2022-07-02] MEDS: SODIUM CHLORIDE 1,000 ML IV SCH ×2 (05:40→14:42)
[2022-07-02] MEDS: INSULIN SLIDING SCALE (NOVOLOG) 1 VIAL SQ SCH ×4 (06:05→21:27)
[2022-07-02] MEDS: FAMOTIDINE 20 MG TABLET PO SCH (09:16)
[2022-07-02] MEDS: MEMANTINE HCL 5 MG TABLET (UD) PO SCH ×2 (09:16→21:35)
[2022-07-02] MEDS: DORZOLAMIDE 2% HCL OPHTHALMIC SOLUTION 10 ML BOTTLE OU SCH (09:21)
[2022-07-02] MEDS: FLUTICASONE/UMECLIDIN/VILANTER(200-62.5-25 TRELEGY ELLIPTA) INAHLER IH SCH (09:21)
[2022-07-02 10:58] LABS: HEMATOCRIT 29.7 % (32.4-45.2); HEMOGLOBIN 9.5 GM/dL (10.7-15.3); MCH 28.6 pg (25.7-33.7); MEAN CELL VOLUME 89.3 fl (80-96); MEAN PLT VOLUME 7.5 fl (7.5-11.1); PLATELET COUNT 475 10^3/uL (134-434); RBC 3.33 M/mm3 (3.60-5.2); RDW 15.6 % (11.6-15.6); WHITE BLOOD COUNT 13.4 K/mm3 (4.0-10.0)
[2022-07-02 11:33] LABS: ALBUMIN 2.1 g/dl (3.4-5.0)
[2022-07-02 11:36] LABS: CALCIUM 8.4 mg/dL (8.5-10.1)
[2022-07-02 11:37] LABS: BLOOD UREA NITROGEN 39.6 mg/dL (7-18); MAGNESIUM 2.5 mg/dL (1.8-2.4)
[2022-07-02 11:38] LABS: BILIRUBIN,TOTAL 0.4 mg/dL (0.2-1); TOT PROT 5.7 g/dl (6.4-8.2)
[2022-07-02 12:17] LABS: ANISOCYTOSIS 0; HELMET CELLS 0; HOWELL-JOLLY BODIES 0; MACROCYTOSIS 0; OVALOCYTE 0; ROULEAU 0; SICKELED CELLS 0; TARGET CELLS 0; TEAR DROP CELLS 0; TOXIC GRANULATION 0
[2022-07-02 12:20] LABS: NEUT % 10.1 % (42.8-82.8)
[2022-07-02] MEDS ORDERED: INSULIN (NOVOLOG) ASPART 100 UNITS/ML 10ML VIAL ONE (21:03)
[2022-07-02] MEDS: ROSUVASTATIN CA 5 MG TABLET PO SCH (21:28)
[2022-07-02] MEDS: QUEtiapine FUMARATE 25 MG TABLET PO SCH (21:29)
[2022-07-02] MEDS: LATANOPROST 0.005% OPHTH SOLN 2.5ML BOTTLE OU SCH (21:37)
[2022-07-03] MEDS: SODIUM CHLORIDE 1,000 ML IV SCH ×3 (06:32→17:18)
[2022-07-03] MEDS: HEPARIN NA (PORCINE) 5,000 UNITS/ML 1ML VIAL SQ SCH ×3 (06:33→22:38)
[2022-07-03] MEDS: INSULIN SLIDING SCALE (NOVOLOG) 1 VIAL SQ SCH ×4 (06:35→22:42)
[2022-07-03] MEDS: FAMOTIDINE 20 MG TABLET PO SCH (10:44)
[2022-07-03] MEDS: CEFTRIAXONE 1 GM in DEXTROSE 5%-WATER - 50 ML IVPB SCH (10:44)
[2022-07-03] MEDS: MEMANTINE HCL 5 MG TABLET (UD) PO SCH ×2 (10:44→22:44)
[2022-07-03] MEDS: FLUTICASONE/UMECLIDIN/VILANTER(200-62.5-25 TRELEGY ELLIPTA) INAHLER IH SCH (10:45)
[2022-07-03] MEDS: DORZOLAMIDE 2% HCL OPHTHALMIC SOLUTION 10 ML BOTTLE OU SCH (10:45)
[2022-07-03] MEDS: QUEtiapine FUMARATE 25 MG TABLET PO SCH (22:40)
[2022-07-03] MEDS: ROSUVASTATIN CA 5 MG TABLET PO SCH (22:43)
[2022-07-03] MEDS: LATANOPROST 0.005% OPHTH SOLN 2.5ML BOTTLE OU SCH (22:45)
[2022-07-04] MEDS: HEPARIN NA (PORCINE) 5,000 UNITS/ML 1ML VIAL SQ SCH ×3 (06:37→21:32)
[2022-07-04] MEDS: INSULIN SLIDING SCALE (NOVOLOG) 1 VIAL SQ SCH ×4 (06:38→21:43)
[2022-07-04] MEDS: SODIUM CHLORIDE 1,000 ML IV SCH (06:40)
[2022-07-04] MEDS: MEMANTINE HCL 5 MG TABLET (UD) PO SCH ×2 (09:23→23:12)
[2022-07-04] MEDS: DORZOLAMIDE 2% HCL OPHTHALMIC SOLUTION 10 ML BOTTLE OU SCH (09:24)
[2022-07-04] MEDS: CEFTRIAXONE 1 GM in DEXTROSE 5%-WATER - 50 ML IVPB SCH (09:24)
[2022-07-04] MEDS: FAMOTIDINE 20 MG TABLET PO SCH (09:24)
[2022-07-04] MEDS: FLUTICASONE/UMECLIDIN/VILANTER(200-62.5-25 TRELEGY ELLIPTA) INAHLER IH SCH (09:24)
[2022-07-04] MEDS ORDERED: ACETAMINOPHEN 325 MG TABLET (FP) PO PRN (09:50)
[2022-07-04] MEDS: ROSUVASTATIN CA 5 MG TABLET PO SCH (21:32)
[2022-07-04] MEDS: QUEtiapine FUMARATE 25 MG TABLET PO SCH (21:36)
[2022-07-04] MEDS: LATANOPROST 0.005% OPHTH SOLN 2.5ML BOTTLE OU SCH (21:37)
[2022-07-05] MEDS: HEPARIN NA (PORCINE) 5,000 UNITS/ML 1ML VIAL SQ SCH ×3 (05:19→22:24)
[2022-07-05] MEDS: INSULIN SLIDING SCALE (NOVOLOG) 1 VIAL SQ SCH ×4 (06:16→22:26)
[2022-07-05] MEDS: SODIUM CHLORIDE 1,000 ML IV SCH ×2 (09:48→11:46)
[2022-07-05] MEDS: FAMOTIDINE 20 MG TABLET PO SCH (09:49)
[2022-07-05] MEDS: CEFTRIAXONE 1 GM in DEXTROSE 5%-WATER - 50 ML IVPB SCH (09:49)
[2022-07-05] MEDS: MEMANTINE HCL 5 MG TABLET (UD) PO SCH ×2 (09:49→22:24)
[2022-07-05] MEDS: FLUTICASONE/UMECLIDIN/VILANTER(200-62.5-25 TRELEGY ELLIPTA) INAHLER IH SCH (09:50)
[2022-07-05] MEDS: DORZOLAMIDE 2% HCL OPHTHALMIC SOLUTION 10 ML BOTTLE OU SCH (09:50)
[2022-07-05] MEDS ORDERED: INSULIN (NOVOLOG) ASPART 100 UNITS/ML 10ML VIAL ONE (11:44)
[2022-07-05 14:01] VITALS: BMI 27.3
[2022-07-05] MEDS: QUEtiapine FUMARATE 25 MG TABLET PO SCH (22:22)
[2022-07-05] MEDS: ROSUVASTATIN CA 5 MG TABLET PO SCH (22:22)
[2022-07-05] MEDS: LATANOPROST 0.005% OPHTH SOLN 2.5ML BOTTLE OU SCH (22:28)
[2022-07-06] MEDS: INSULIN SLIDING SCALE (NOVOLOG) 1 VIAL SQ SCH ×4 (06:54→21:54)
[2022-07-06] MEDS: HEPARIN NA (PORCINE) 5,000 UNITS/ML 1ML VIAL SQ SCH ×3 (06:55→21:46)
[2022-07-06] MEDS: SODIUM CHLORIDE 1,000 ML IV SCH ×3 (06:57→10:24)
[2022-07-06] MEDS: MEMANTINE HCL 5 MG TABLET (UD) PO SCH ×2 (10:15→21:46)
[2022-07-06] MEDS: CEFTRIAXONE 1 GM in DEXTROSE 5%-WATER - 50 ML IVPB SCH (10:15)
[2022-07-06] MEDS: FAMOTIDINE 20 MG TABLET PO SCH (10:15)
[2022-07-06] MEDS: FLUTICASONE/UMECLIDIN/VILANTER(200-62.5-25 TRELEGY ELLIPTA) INAHLER IH SCH (10:16)
[2022-07-06] MEDS: DORZOLAMIDE 2% HCL OPHTHALMIC SOLUTION 10 ML BOTTLE OU SCH (10:17)
[2022-07-06] MEDS: ROSUVASTATIN CA 5 MG TABLET PO SCH (21:46)
[2022-07-06] MEDS: QUEtiapine FUMARATE 25 MG TABLET PO SCH (21:47)
[2022-07-06] MEDS: LATANOPROST 0.005% OPHTH SOLN 2.5ML BOTTLE OU SCH (21:48)
[2022-07-07] MEDS: HEPARIN NA (PORCINE) 5,000 UNITS/ML 1ML VIAL SQ SCH ×3 (05:22→21:26)
[2022-07-07] MEDS: INSULIN SLIDING SCALE (NOVOLOG) 1 VIAL SQ SCH ×4 (06:08→21:35)
[2022-07-07] MEDS: CEFTRIAXONE 1 GM in DEXTROSE 5%-WATER - 50 ML IVPB SCH (10:15)
[2022-07-07] MEDS: MEMANTINE HCL 5 MG TABLET (UD) PO SCH ×2 (10:15→21:27)
[2022-07-07] MEDS: DORZOLAMIDE 2% HCL OPHTHALMIC SOLUTION 10 ML BOTTLE OU SCH (10:15)
[2022-07-07] MEDS: FAMOTIDINE 20 MG TABLET PO SCH (10:15)
[2022-07-07] MEDS: FLUTICASONE/UMECLIDIN/VILANTER(200-62.5-25 TRELEGY ELLIPTA) INAHLER IH SCH (10:15)
[2022-07-07 11:11] LABS: HEMATOCRIT 26.1 % (32.4-45.2); HEMOGLOBIN 8.4 GM/dL (10.7-15.3); MCH 28.4 pg (25.7-33.7); MCHC 32.2 g/dl (32.0-36.0); MEAN CELL VOLUME 88.2 fl (80-96); MEAN PLT VOLUME 7.3 fl (7.5-11.1); PLATELET COUNT 594 10^3/uL (134-434); RBC 2.96 M/mm3 (3.60-5.2); RDW 16.1 % (11.6-15.6); WHITE BLOOD COUNT 7.6 K/mm3 (4.0-10.0)
[2022-07-07 11:27] LABS: BLOOD UREA NITROGEN 19.8 mg/dL (7-18); CALCIUM 8.5 mg/dL (8.5-10.1); MAGNESIUM 1.6 mg/dL (1.8-2.4)
[2022-07-07 11:30] LABS: CREATININE 1.3 mg/dL (0.55-1.3)
[2022-07-07 11:32] LABS: BILIRUBIN,TOTAL 0.2 mg/dL (0.2-1); TOT PROT 5.3 g/dl (6.4-8.2)
[2022-07-07] MEDS: ACETAMINOPHEN 325 MG TABLET (FP) PO SCH ×2 (12:14→17:06)
[2022-07-07 13:13] LABS: ANISOCYTOSIS 0; HELMET CELLS 0; HOWELL-JOLLY BODIES 0; MACROCYTOSIS 0; OVALOCYTE 0; ROULEAU 0; SICKELED CELLS 0; TARGET CELLS 0; TEAR DROP CELLS 0; TOXIC GRANULATION 0
[2022-07-07] MEDS ORDERED: MAGNESIUM OXIDE 400 MG TABLET (FP) PO ONE (15:36)
[2022-07-07] MEDS: ROSUVASTATIN CA 5 MG TABLET PO SCH (21:26)
[2022-07-07] MEDS: QUEtiapine FUMARATE 25 MG TABLET PO SCH (21:27)
[2022-07-07] MEDS: LATANOPROST 0.005% OPHTH SOLN 2.5ML BOTTLE OU SCH (21:29)
[2022-07-08] MEDS: ACETAMINOPHEN 325 MG TABLET (FP) PO SCH ×3 (01:05→11:49)
[2022-07-08] MEDS: HEPARIN NA (PORCINE) 5,000 UNITS/ML 1ML VIAL SQ SCH (05:36)
[2022-07-08 05:55] VITALS: RESP 20
[2022-07-08] MEDS: INSULIN SLIDING SCALE (NOVOLOG) 1 VIAL SQ SCH ×2 (06:20→10:56)
[2022-07-08] MEDS: FAMOTIDINE 20 MG TABLET PO SCH (10:18)
[2022-07-08] MEDS: CEFTRIAXONE 1 GM in DEXTROSE 5%-WATER - 50 ML IVPB SCH (10:18)
[2022-07-08] MEDS: MEMANTINE HCL 5 MG TABLET (UD) PO SCH (10:29)
[2022-07-08] MEDS: FLUTICASONE/UMECLIDIN/VILANTER(200-62.5-25 TRELEGY ELLIPTA) INAHLER IH SCH (10:40)
[2022-07-08] MEDS: DORZOLAMIDE 2% HCL OPHTHALMIC SOLUTION 10 ML BOTTLE OU SCH (10:40)
[2022-07-08] MEDS ORDERED: INSULIN (NOVOLOG) ASPART 100 UNITS/ML 10ML VIAL ONE (10:53)
[2022-07-08 12:04] LABS: HEMATOCRIT 26.3 % (32.4-45.2); HEMOGLOBIN 8.6 GM/dL (10.7-15.3); MCH 28.6 pg (25.7-33.7); MCHC 32.6 g/dl (32.0-36.0); MEAN CELL VOLUME 87.9 fl (80-96); MEAN PLT VOLUME 7.4 fl (7.5-11.1); PLATELET COUNT 581 10^3/uL (134-434); RBC 2.99 M/mm3 (3.60-5.2); RDW 16.4 % (11.6-15.6); WHITE BLOOD COUNT 6.4 K/mm3 (4.0-10.0)
[2022-07-08 12:41] LABS: CALCIUM 8.5 mg/dL (8.5-10.1)
[2022-07-08 12:42] LABS: BLOOD UREA NITROGEN 19.2 mg/dL (7-18); MAGNESIUM 1.5 mg/dL (1.8-2.4)
[2022-07-08 12:43] LABS: BILIRUBIN,TOTAL 0.2 mg/dL (0.2-1); CREATININE 1.2 mg/dL (0.55-1.3); TOT PROT 5.4 g/dl (6.4-8.2)
[2022-07-08 13:27] LABS: ANISOCYTOSIS 0; MACROCYTOSIS 0; OVALOCYTE 1+
[2022-07-08 13:40] VITALS: BP 149/76; PULSE 102; TEMP 97.6
== END 2022-07-08 13:59 | disposition home or self-care (01) | DRG 871 ==
LOC: JER 13:01 → JERBED 14:43 → J8W 21:18
PROVIDERS: ADMIT Internal Medicine; ATTEND Nurse Practitioner Family
DX: A41.9 Sepsis, unspecified organism (principal); G93.41 Metabolic encephalopathy; J96.21 Acute and chronic respiratory failure with hypoxia; J18.9 Pneumonia, unspecified organism; J96.22 Acute and chronic respiratory failure with hypercapnia; N17.9 Acute kidney failure, unspecified; N39.0 Urinary tract infection, site not specified; J98.11 Atelectasis; I13.0 Hypertensive heart and chronic kidney disease with heart failure and stage 1 through stage 4 chronic kidney disease, or unspecified chronic kidney disease; J44.1 Chronic obstructive pulmonary disease with (acute) exacerbation; I50.32 Chronic diastolic (congestive) heart failure; I47.1 Supraventricular tachycardia; J90 Pleural effusion, not elsewhere classified; I47.20 Ventricular tachycardia, unspecified; J44.9 Chronic obstructive pulmonary disease, unspecified; J45.909 Unspecified asthma, uncomplicated; E11.319 Type 2 diabetes mellitus with unspecified diabetic retinopathy without macular edema; E11.22 Type 2 diabetes mellitus with diabetic chronic kidney disease; F03.90 Unspecified dementia, unspecified severity, without behavioral disturbance, psychotic disturbance, mood disturbance, and anxiety; I12.9 Hypertensive chronic kidney disease with stage 1 through stage 4 chronic kidney disease, or unspecified chronic kidney disease; D64.9 Anemia, unspecified; N18.9 Chronic kidney disease, unspecified; E78.5 Hyperlipidemia, unspecified; I25.10 Atherosclerotic heart disease of native coronary artery without angina pectoris; D72.829 Elevated white blood cell count, unspecified; Z99.81 Dependence on supplemental oxygen; E11.65 Type 2 diabetes mellitus with hyperglycemia; I48.0 Paroxysmal atrial fibrillation; Z95.5 Presence of coronary angioplasty implant and graft; E86.0 Dehydration; R62.7 Adult failure to thrive
CPT/HCPCS: 0241U-QW; 36415; 70450-TC; 71045-TC-FY; 71250-TC; 74176-TC; 76775-TC; 80048; 80053; 80061; 81003; 82010; 82272; 82378; 82550; 82728; 82803; 82962; 83036; 83540; 83550; 83605; 83735; 84100; 84484; 85025; 85027; 85045; 85610; 85651; 85730; 86140; 86301; 86850; 86900; 86901; 87040; 87086; 93005; 93010; 93306-TC; 97116-GP; 97163-GP; 99285-25; G0480; J1644

== ENCOUNTER 2022-07-09 11:34 | Observation (INO) | payer OTHER ==
[2022-07-09 12:17] VITALS: BMI 22.8
[2022-07-09] MEDS ORDERED: ACETAMINOPHEN 1000 MG/100 ML BAG IVPB ONE (14:41)
[2022-07-09] MEDS ORDERED: ONDANSETRON 4 MG/2 ML VIAL IVPUSH ONE (14:41)
[2022-07-09] MEDS ORDERED: ONDANSETRON 4 MG/2 ML VIAL ONE (15:01)
[2022-07-09] MEDS ORDERED: ACETAMINOPHEN INJECTION 100 ML IVPB ONE (15:02)
[2022-07-09 15:39] LABS: HEMATOCRIT 29.3 % (32.4-45.2); HEMOGLOBIN 9.4 GM/dL (10.7-15.3); MCH 28.1 pg (25.7-33.7); MCHC 32.2 g/dl (32.0-36.0); MEAN CELL VOLUME 87.3 fl (80-96); MEAN PLT VOLUME 7.4 fl (7.5-11.1); PLATELET COUNT 670 10^3/uL (134-434); RBC 3.35 M/mm3 (3.60-5.2); RDW 16.3 % (11.6-15.6); WHITE BLOOD COUNT 10.6 K/mm3 (4.0-10.0)
[2022-07-09 15:59] LABS: CALCIUM 9.1 mg/dL (8.5-10.1)
[2022-07-09 16:00] LABS: BLOOD UREA NITROGEN 14.4 mg/dL (7-18)
[2022-07-09 16:03] LABS: CREATININE 1.1 mg/dL (0.55-1.3)
[2022-07-09 16:05] LABS: BILIRUBIN,TOTAL 0.3 mg/dL (0.2-1); TOT PROT 6.8 g/dl (6.4-8.2)
[2022-07-09 16:15] LABS: ALBUMIN 2.7 g/dl (3.4-5.0)
[2022-07-09] MEDS ORDERED: ONDANSETRON 4 MG/2 ML VIAL IVPUSH PRN (22:01)
[2022-07-09] MEDS: INSULIN SLIDING SCALE (NOVOLOG) 1 VIAL SQ SCH (23:11)
[2022-07-10 01:30] LABS: EPI CELLS 3 /uL (0-25.1); HYALINE CASTS 0 /uL (0-3.1); PH,URINE 5.5 (5.0-8.0); URINE APPEARANCE CLOUDY; URINE BACTERIA 116 /uL (0-1359); URINE BILIRUBIN NEGATIVE (NEGATIVE); URINE COLOR YELLOW; URINE GLUCOSE (UA) NEGATIVE (NEGATIVE); URINE KETONE NEGATIVE (NEGATIVE); URINE LEUK ESTERASE 2+ (NEGATIVE); URINE NITRITE NEGATIVE (NEGATIVE); URINE PROTEIN 2+ (NEGATIVE); URINE UROBILINOGEN 0.2 mg/dL (0.2-1.0); URINE WBC 1538 /uL (0-25.8)
[2022-07-10] MEDS: CEFTRIAXONE 1 GM in DEXTROSE 5%-WATER - 50 ML IVPB SCH ×2 (03:50→11:04)
[2022-07-10] MEDS ORDERED: CEFTRIAXONE 1 GM/50 ML BAG ONE (03:50)
[2022-07-10] MEDS: INSULIN SLIDING SCALE (NOVOLOG) 1 VIAL SQ SCH ×4 (06:18→23:07)
[2022-07-10 07:18] LABS: URINE RBC 78.3 /uL (0-23.9); YEAST MANY (NEGATIVE)
[2022-07-10] MEDS: FAMOTIDINE 20 MG TABLET PO SCH (09:58)
[2022-07-10] MEDS: FUROSEMIDE 40 MG TABLET (FP) PO SCH (09:58)
[2022-07-10] MEDS: HYDROCHLOROTHIAZIDE 25 MG TABLET (FP) PO SCH (09:58)
[2022-07-10] MEDS: ENOXAPARIN NA (PORCINE) 40 MG/0.4 ML DISP.SYRIN SQ SCH (09:58)
[2022-07-10] MEDS: MEMANTINE HCL 5 MG TABLET (UD) PO SCH ×2 (09:59→23:07)
[2022-07-10] MEDS: DORZOLAMIDE 2% HCL OPHTHALMIC SOLUTION 10 ML BOTTLE OU SCH (10:45)
[2022-07-10] MEDS ORDERED: INSULIN (NOVOLOG) ASPART 100 UNITS/ML 10ML VIAL ONE (12:12)
[2022-07-10] MEDS: ROSUVASTATIN CA 5 MG TABLET PO SCH (23:07)
[2022-07-10] MEDS: LACTOBACILLUS ACIDOPHILUS 1 TABLET PO SCH (23:07)
[2022-07-10] MEDS: QUEtiapine FUMARATE 25 MG TABLET PO SCH (23:08)
[2022-07-11 06:44] VITALS: RESP 20
[2022-07-11] MEDS: INSULIN SLIDING SCALE (NOVOLOG) 1 VIAL SQ SCH ×4 (07:02→21:53)
[2022-07-11] MEDS: MEMANTINE HCL 5 MG TABLET (UD) PO SCH ×2 (10:44→21:43)
[2022-07-11] MEDS: DORZOLAMIDE 2% HCL OPHTHALMIC SOLUTION 10 ML BOTTLE OU SCH (10:44)
[2022-07-11] MEDS: ENOXAPARIN NA (PORCINE) 40 MG/0.4 ML DISP.SYRIN SQ SCH (10:44)
[2022-07-11] MEDS: FUROSEMIDE 40 MG TABLET (FP) PO SCH (10:44)
[2022-07-11] MEDS: HYDROCHLOROTHIAZIDE 25 MG TABLET (FP) PO SCH (10:44)
[2022-07-11] MEDS: FAMOTIDINE 20 MG TABLET PO SCH (10:45)
[2022-07-11] MEDS: QUEtiapine FUMARATE 25 MG TABLET PO SCH (21:43)
[2022-07-11] MEDS: LACTOBACILLUS ACIDOPHILUS 1 TABLET PO SCH (21:43)
[2022-07-11] MEDS: ROSUVASTATIN CA 5 MG TABLET PO SCH (21:43)
[2022-07-11] MEDS ORDERED: MELATONIN 5 MG TABLETS PO PRN (22:20)
[2022-07-12] MEDS: INSULIN SLIDING SCALE (NOVOLOG) 1 VIAL SQ SCH ×3 (06:49→17:48)
[2022-07-12] MEDS: FAMOTIDINE 20 MG TABLET PO SCH (09:28)
[2022-07-12] MEDS: ENOXAPARIN NA (PORCINE) 40 MG/0.4 ML DISP.SYRIN SQ SCH (09:28)
[2022-07-12] MEDS: DORZOLAMIDE 2% HCL OPHTHALMIC SOLUTION 10 ML BOTTLE OU SCH (09:28)
[2022-07-12] MEDS: MEMANTINE HCL 5 MG TABLET (UD) PO SCH (09:28)
[2022-07-12] MEDS: FUROSEMIDE 40 MG TABLET (FP) PO SCH (09:28)
[2022-07-12] MEDS: HYDROCHLOROTHIAZIDE 25 MG TABLET (FP) PO SCH (09:28)
[2022-07-12] MEDS ORDERED: ACETAMINOPHEN 325 MG TABLET (FP) PO PRN (11:15)
[2022-07-12 18:18] VITALS: BP 130/71; PULSE 99; TEMP 97.5
== END 2022-07-12 19:33 ==
LOC: JER 11:34 → OBSVTOIN 19:20 → INTOOBSV 19:20 → UNDOADMOB 19:20 → JERBED 19:20 → J8W 07-10 07:32 → JERBED 07-10 09:02 → J8W 07-10 09:02
PROVIDERS: ADMIT Internal Medicine; ATTEND Nurse Practitioner Acute Care
PROC: 3E033NZ Introduction of Analgesics, Hypnotics, Sedatives into Peripheral Vein, Percutaneous Approach (ICD-10-PCS; principal; 2022-07-10)
PROC: 3E023GC Introduction of Other Therapeutic Substance into Muscle, Percutaneous Approach (ICD-10-PCS; 2022-07-10)
PROC: 3E013VG Introduction of Insulin into Subcutaneous Tissue, Percutaneous Approach (ICD-10-PCS; 2022-07-10)
PROC: 3E033GC Introduction of Other Therapeutic Substance into Peripheral Vein, Percutaneous Approach (ICD-10-PCS; 2022-07-10)
DX: Z75.1 Person awaiting admission to adequate facility elsewhere (principal); I10 Essential (primary) hypertension; E78.5 Hyperlipidemia, unspecified; I69.992 Facial weakness following unspecified cerebrovascular disease; E11.40 Type 2 diabetes mellitus with diabetic neuropathy, unspecified; G47.30 Sleep apnea, unspecified; Z99.81 Dependence on supplemental oxygen; D64.89 Other specified anemias; I25.2 Old myocardial infarction; Z95.5 Presence of coronary angioplasty implant and graft; I69.90 Unspecified sequelae of unspecified cerebrovascular disease; K59.00 Constipation, unspecified; K29.70 Gastritis, unspecified, without bleeding; F32.A Depression, unspecified; Z87.891 Personal history of nicotine dependence; Z79.4 Long term (current) use of insulin
CPT/HCPCS: 0241U-QW; 36415; 74176-TC; 80053; 81003; 82962; 84484; 85027; 87077; 87086; 93005; 93010; 96372; 96374; 96375; 97116-GP; 97161-GP; 99285-25; G0378